=== PATIENT | female | born 1950 | race Caucasian/White ===

== ENCOUNTER → 2018-11-25 23:59 | Outpatient (RCR) | payer MEDICARE, SELFPAY | END | disposition home or self-care (01) | LOC: LAB 15:53 | PROVIDERS: Family Provider Family Medicine; Visit Provider Family Medicine | DX: Z01.89 Encounter for other specified special examinations (principal) ==

== ENCOUNTER 2019-01-31 13:57 | Outpatient (RCR) | payer MEDICARE, SELFPAY | END 2019-03-01 00:01 | LOC: GILAB 13:57 | PROVIDERS: Family Provider Family Medicine; Visit Provider Family Medicine | DX: E87.8 Other disorders of electrolyte and fluid balance, not elsewhere classified (principal); N18.9 Chronic kidney disease, unspecified; R11.2 Nausea with vomiting, unspecified; L98.499 Non-pressure chronic ulcer of skin of other sites with unspecified severity | CPT/HCPCS: 36591 ×2; 80048 ×2; 83735 ×2; 96365 ×2; 96366 ×2; 96367 ×2; 96374; G0463 ×4; J1642; J2001; J2405 ×2; J3475; J3480 ==

== ENCOUNTER 2019-02-14 13:05 | Outpatient (RCR) | payer MEDICARE, SELFPAY | END 2019-03-01 00:01 | LOC: GILAB 13:05 | PROVIDERS: Family Provider Nurse Practitioner Family; Visit Provider Internal Medicine Nephrology | DX: E87.8 Other disorders of electrolyte and fluid balance, not elsewhere classified (principal); N18.9 Chronic kidney disease, unspecified | CPT/HCPCS: 36415; 36591 ×2; 80048 ×2; 83735 ×2; 96360; 96361; 96365 ×2; 96366 ×2; 96367 ×2; 96374 ×2; G0463 ×2; J1642 ×2; J2405; J3475 ×3; J3480 ×3 ==

== ENCOUNTER 2019-02-24 13:57 | Inpatient (IN) | payer MEDICARE, SELFPAY ==
[2019-03-02] MEDS: ondansetron 2 mg/ML SDV 2 mL 4 MG IVP ×2 (01:23→10:08)
[2019-03-02] MEDS: LORazepam 2 mg/mL INJ 1 mL 1 MG IVP ×3 (01:24→20:21)
[2019-03-02 03:16] VITALS: BP 141/53; PULSE 87; RESP 14; O2SAT 93
[2019-03-02 06:41] LABS: Add RBC Morph No
[2019-03-02 06:43] LABS: Basophils % 0.4 %; Eosinophils # 0.3 10^3/uL (0.0-0.8); Eosinophils % 3.6 %; Hematocrit 33.3 % (37.0-47.0); Hemoglobin 10.6 g/dL (11.5-15.3); Lymphocytes # 0.9 10^3/uL (0.8-4.8); Mean Corpuscular HGB Conc 31.8 g/dL (30.0-36.0); Mean Corpuscular Hemoglobin 29.2 pg (28.0-34.0); Mean Corpuscular Volume 91.7 fL (81-99); Mean Platelet Volume 9.5 fL (7.4-10.4); Monocytes # 0.7 10^3/uL (0.2-0.9); Monocytes % 8.4 %; Neutrophils # 5.9 10^3/uL (1.8-7.7); Neutrophils % 75.7 %; Nucleated Red Blood Cells % 0 %; Platelet Count 309 10^3/cmm (130-400); Red Blood Count 3.63 10^6/uL (4.1-5.3); Red Cell Distribution Width 16.4 % (12.1-15.1); White Blood Count 7.7 10^3/uL (4.0-10.0)
[2019-03-02 07:08] LABS: Alanine Aminotransferase 10 U/L (0-33); Albumin Level 3.1 g/dL (3.5-5.2); Alkaline Phosphatase 195 IU/L (35-105); Aspartate Amino Transferase 20 U/L (0-32); Blood Urea Nitrogen 7 mg/dL (8-23); Calcium 9.5 mg/Dl (8.8-10.2); Carbon Dioxide 26 mmol/L (22-29); Chloride 103 mmol/L (98-107); Glomerular Filtration Rate 62.1 mL/min (90-130); Glucose 94 mg/dL (74-106); Phosphorus 2.7 mg/dL (2.5-4.5); Sodium 137 mmol/L (136-145); Total Bilirubin 0.3 mg/dL (0.15-1.2); Total Protein 5.1 g/dL (6.6-8.7)
--- NOTE | 2019-03-02 07:24 | PC.NURSE ---
RN REMOVED CENTRAL LINE FROM EJ. PT DID NOT TOLERATE WELL. DRESSING WAS PLACED OVER SITE. WILL CONTINUE TO MONITOR.
[2019-03-02] MEDS: morphine 4 mg/mL SDV 1 mL 2 MG IVP ×2 (07:41→18:33)
--- NOTE | 2019-03-02 10:48 | PC.NURSE ---
PATIENT IS EXTREMELY UNCOOPERATIVE WITH ALL ASPECTS OF HER CARE. NURSE EDUCATED PATIENT OVER DRESSING CHANGES ORDERED TWICE AND DAY AND THE NEED FOR HYGIENE. PATIENT ALSO INITIALLY REFUSED HER TPN ADMINISTRATION. NURSE EDUCATED THE NEED FOR TPN AND THAT SHE WOULD STILL BE ABLE TO EAT. NURSE AND FINALLY CONVINCED PATIENT TO RECEIVE HER DOSE OF TPN AND LIPIDS AND SHE WAS AGREEABLE TO DRESSING CHANGE. PATIENT, HOWEVER, YELLS AT STAFF DURING HER DRESSING CHANGES AND LINEN CHANGES. SHE SCREAMS NO MATTER HOW STAFF MAY ATTEMPT TO CALM PATIENT. PATIENT HAD RECEIVED PAIN MEDICATION PRIOR TO DRESSING CHANGE PER HER REQUEST. PATIENT BECAME SO RESTLESS IN THE BED DURING THIS CHANGE THAT SHE CAUGHT HER JIMENEZ CATHETER TUBING AROUND HER FOOT AND PULLED HER JIMENEZ OUT. DR. GAYLE NOTIFIED. DR. GAYLE ORDERED NEW JIMENEZ TO BE PLACED. PATIENT STATED THAT SHE NO LONGER WANTED THIS NURSE TO BE IN CHARGE OF HER CARE. DR. GAYLE ALSO NOTIFIED OF THIS AND A NEW NURSE HAS BEEN ASSIGNED TO THE CARE OF THIS PATIENT.
[2019-03-02 11:43] LABS: Magnesium 1.7 mg/dL (1.7-2.3)
[2019-03-02] MEDS: heparin 5,000 unit/mL INJ 1 mL 5000 UNIT SUBCUT (12:30)
--- NOTE | 2019-03-02 12:48 | PC.OT ---
Patient was laying in bed in supine upon therapist's entry. Nursing present, in the process of changing patient's bed linens. Patient yelled, get out when asked by this therapist if she would be willing to participate in OT treatment. However, patient was amenable to having therapist assist in changing her soiled hospital gown, if it could be done quickly . Patient required maximal assistance to don the gown. Patient was obstinate throughout the dressing task, complaining I'm cold and go faster . After donning hospital gown, session ended due to patient's unwillingness to participate. Nursing still present at therapist's exit. Overall, less than 8 minutes of treatment provided, therefore today's services were not billed for.
--- NOTE | 2019-03-02 12:57 | PC.CHAP ---
Pastoral Care Encounter/Spiritual Assessment Type of Contact [x] Declined brine maker visit [] Patient/Family/Request visit [] Outpatient visit [] Follow-up visit [] Physician referral [] Code/Alert [] Routine visit [] Staff referral [] Actively dying [] Patient sleeping [] Family support [] [] Out of room [] Palliative care [] [] Receiving care in room [] Pre-surgical visit [] Trauma [] Long length of stay [] ICU visit [] Other: Relational/Emotional Strength [] Patient feels connected with others/family/visitors/staff [] Distress [] Loneliness/isolation [] Abandonment Spirituality of Patient [] Person of Winter [] Attends Yarsanism of their Winter [] Believes in Prayer [] Reads Bible or Mormonism materials [] There are Spiritual issues to be addressed Deputy Sheriff Generalist Interventions [] Prayer [] Active listening [] Non-anxious presence [] Spiritual/emotional support [] Crisis/trauma care [] Spiritual counseling [] Bereavement support [] Provided bereavement packet [] Provided Bible/devotional materials [] Provided toy/stuffed animal, coloring book to patient or family member [] Completed spiritual assessment [] Provided Communion [] Anointing/[place] [] Salvation [] Other: Impact on Illness or Injury [] Angry [x] Fearful [x] Anxious [] Often cries [] Exhaustion [] Unable to work [] Unable to attend orthodox [] Unable to be satisfied with staff care walk/stand [] Unable to read [] Unable to drive [] Unable to eat/drink [] Unable to sleep [] Unable to be with family [] Other: Summary Pastoral care offered to assist in calming patient, staff didn't feel necessary. Time spent with patient 2 minutes
--- NOTE | 2019-03-02 14:13 | PM.PN ---
Subjective Subjective: Interval history: Janene awakens easily. Reports she has been able to keep some food down today, but it was limited. No other specific complaints today. Medications: Reviewed: Yes Vitals/I&O/Wt Last Vital Signs Pulse 87 03/02/19 03:16 Resp 14 03/02/19 03:16 BP 141/53 03/02/19 03:16 Pulse Ox 93 03/02/19 03:16 03/01/19 03/02/19 03/02/19 22:59 06:59 14:59 Intake Total 100 / 100 Balance 100 / 100 Weight last 48 hrs Weight 40.143 kg Weight 40.143 kg Physical Exam Narrative: EXAM NARRATIVE: General exam no apparent distress Cardiovascular regular rate and rhythm without murmur Lungs clear but diminished breath sounds bilaterally Abdomen demonstrates ostomy, stool noted Extremities no cyanosis clubbing or edema Data Labs: Other Labs: All Labs last 24 hrs except CBC/BMP 03/01/19 03/02/19 03/02/19 06:55 06:30 06:30 RBC 3.63 L MCV 91.7 MCH 29.2 MCHC 31.8 RDW 16.4 H MPV 9.5 Neut % (Auto) 75.7 Lymph % (Auto) 11.0 [place] % (Auto) 8.4 Eos % (Auto) 3.6 Baso % (Auto) 0.4 Neut # (Auto) 5.9 Lymph # (Auto) 0.9 [place] # (Auto) 0.7 Eos # (Auto) 0.3 Baso # (Auto) 0.0 Nucleated RBC % (a uto) 0 Nucleated RBCs # 0.0 GFR Calculation 55.0 L 62.1 L Random Glucose 87 Calcium 9.5 9.5 Phosphorus 2.7 Magnesium 1.0 L 1.7 Total Bilirubin 0.3 AST 20 ALT 10 Alkaline Phosphata se 195 H Total Protein 5.1 L Albumin 3.1 L Globulin 2.0 A&P Assessment and plan (1) Pressure ulcer of sacral region, unspecified stage: Status post debridement. Will need IV antibiotics for minimum of 6 weeks and wound care follow-up Status: Acute Code(s): L89.159 - Pressure ulcer of sacral region, unspecified stage (2) Bacteremia: Currently on vancomycin, Primaxin. Will need minimum of 6 weeks IV antibiotics secondary to bacteremia Status: Acute Code(s): R78.81 - Bacteremia (3) Severe protein-calorie malnutrition: TPN while in hospital. Will not receive TPN on discharge. Status: Acute Code(s): E43 - Unspecified severe protein-calorie malnutrition (4) Septic shock: Resolved Status: Acute Code(s): A41.9 - Sepsis, unspecified organism; R65.21 - Severe sepsis with septic shock (5) Elevated troponin: Type II, no further work-up planned Status: Acute Code(s): R79.89 - Other specified abnormal findings of blood chemistry (6) Crohn's disease: Status: Acute Code(s): K50.90 - Crohn's disease, unspecified, without complications (7) Chronic kidney disease, stage III (moderate): Stable Status: Acute Code(s): N18.3 - Chronic kidney disease, stage 3 (moderate) (8) Chronic anemia: Stable Status: Acute Code(s): D64.9 - Anemia, unspecified Attestations Medical Necessity Statement*: Needs continued hospitalization for IV antibiotics pending placement Coding Level of Care Code Acute Education And Development Manager for [employer] Fwd Diagnoses Pressure ulcer of sacral region, unspecified stage L89.159 Bacteremia R78.81 Severe protein-calorie malnutrition E43 Septic shock A41.9; R65.21 Elevated troponin R79.89 Crohn's disease K50.90 Chronic kidney disease, stage III (moderate) N18.3 Chronic anemia D64.9
[2019-03-02 18:33] VITALS: RESP 14
[2019-03-02 19:00] VITALS: BP 99/52; PULSE 97; RESP 12; TEMP 35.4; O2SAT 95
[2019-03-02] MEDS: vancomycin 500 MG in sodium chloride 0.9% (plus) 100 ML 200 MG IV (20:21)
--- NOTE | 2019-03-02 20:52 | PC.NURSE ---
Patient refuses to let nurses cover wound or assess it. this nurse is going to keep trying to get a look at it and see if i can put dressing on it during the shift. day nurse stated wound was stage 3 or 4 pressure ulcer and its marked originally as stage 2. unable at this time to assess for correct status.
[2019-03-03] VITALS (11 sets, daily range): BP systolic 108–130; BP diastolic 53–65; PULSE 87–109; RESP 16–32; TEMP 36.3–37.3; O2SAT 91–98
[2019-03-03] MEDS: morphine 4 mg/mL SDV 1 mL 2 MG IVP ×4 (02:00→22:00)
[2019-03-03] MEDS: LORazepam 2 mg/mL INJ 1 mL 1 MG IVP ×2 (05:49→16:29)
[2019-03-03 06:21] LABS: Alanine Aminotransferase 7 U/L (0-33); Albumin Level 3.1 g/dL (3.5-5.2); Alkaline Phosphatase 138 IU/L (35-105); Anion Gap 11.3 (5-19); Aspartate Amino Transferase 14 U/L (0-32); Blood Urea Nitrogen 11 mg/dL (8-23); Calcium 9.3 mg/Dl (8.8-10.2); Carbon Dioxide 27 mmol/L (22-29); Chloride 102 mmol/L (98-107); Globulin 1.7 g/dL (1.3-4.6); Glucose 87 mg/dL (74-106); Magnesium 1.4 mg/dL (1.7-2.3); Potassium 4.3 mmol/L (3.5-5.1); Sodium 136 mmol/L (136-145); Total Bilirubin 0.3 mg/dL (0.15-1.2); Total Protein 4.8 g/dL (6.6-8.7)
--- NOTE | 2019-03-03 10:01 | PC.NURSE ---
OT IN WITH PATIENT ; PATIENT REFUSING TO COOPERATE WITH OT UNLESS PAIN MEDICATION WAS GIVEN ; MEDICATION WAS GIVEN THROUGH IV HOWEVER PO MEDICATIONS WERE REFUSED
[2019-03-03] MEDS: heparin 5,000 unit/mL INJ 1 mL 5000 UNIT SUBCUT (11:16)
--- NOTE | 2019-03-03 13:10 | PC.SOCIAL ---
IMM Updated Page 2 of IMM updated and given to patient. Initialed, dated, and timed and placed back in chart.
--- NOTE | 2019-03-03 13:28 | PC.OT ---
LATE ENTRY FOR 03/02/19 FOR THERAPIST AKILA DEL VALLE: PATIENT REFUSED OT TREATMENT ON 03/02/19
--- NOTE | 2019-03-03 14:09 | PM.PN ---
Subjective Subjective: Interval history: Janene reports she is doing a little bit better. We also discussed her sister, who I have cared for in the past. Medications: Reviewed: Yes Vitals/I&O/Wt Last Vital Signs Temp 98.3 F 03/03/19 11:04 Pulse 102 H 03/03/19 13:13 Resp 18 03/03/19 11:04 BP 108/55 03/03/19 11:04 Pulse Ox 91 03/03/19 13:13 03/02/19 03/03/19 03/03/19 22:59 06:59 14:59 Intake Total 100 / 200 580 / 580 Output Total 500 / 500 900 / 900 Balance -400 / -300 -320 / -320 Weight last 48 hrs Weight 37.92 kg Weight 44.724 kg Weight 40.143 kg Weight 40.143 kg Physical Exam Narrative: EXAM NARRATIVE: General exam is no apparent distress, frail-appearing Cardiovascular regular rate and rhythm Lungs clear Abdomen is soft, positive bowel sounds. Ostomy noted Extremities no cyanosis clubbing or edema Urinary Catheter Management^: Lakhani: Cath Placed During This Visit: no A&P Assessment and plan (1) Pressure ulcer of sacral region, unspecified stage: Status post debridement. Will need IV antibiotics for minimum of 6 weeks and wound care follow-up Status: Acute Code(s): L89.159 - Pressure ulcer of sacral region, unspecified stage (2) Bacteremia: Currently on vancomycin, Primaxin. Will need minimum of 6 weeks IV antibiotics secondary to bacteremia Status: Acute Code(s): R78.81 - Bacteremia (3) Severe protein-calorie malnutrition: TPN while in hospital. Will not receive TPN on discharge. Status: Acute Code(s): E43 - Unspecified severe protein-calorie malnutrition (4) Septic shock: Resolved Status: Acute Code(s): A41.9 - Sepsis, unspecified organism; R65.21 - Severe sepsis with septic shock (5) Elevated troponin: Type II, no further work-up planned Status: Acute Code(s): R79.89 - Other specified abnormal findings of blood chemistry (6) Crohn's disease: Status: Acute Code(s): K50.90 - Crohn's disease, unspecified, without complications (7) Chronic kidney disease, stage III (moderate): Stable Status: Acute Code(s): N18.3 - Chronic kidney disease, stage 3 (moderate) (8) Chronic anemia: Stable Status: Acute Code(s): D64.9 - Anemia, unspecified Additional A&P Information Additional A&P Information: Hypomagnesemia, being supplemented Hypokalemia, being supplemented Attestations Medical Necessity Statement*: Needs continued hospital stay for IV antibiotics secondary to unstageable sacral decub, infected, pending placement at skilled care for wound care and IV antibiotics Coding Level of Care Code Acute 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
[2019-03-03] MEDS: magnesium sulfate premix 2 GM/50 ML PIGGYBACK IV (14:51)
[2019-03-03] MEDS: ondansetron 2 mg/ML SDV 2 mL 4 MG IVP (15:59)
--- NOTE | 2019-03-03 17:25 | PC.NURSE ---
PATIENT SACRAL WOUND CLEANED AND DRESSING CHANGED ; PATIENT WOULD ONLY ALLOW SALINE FLUSHES, NON ADHERENT PAD AND COVADERM TO BE APPLIED ; PATIENT WAS COOPERATIVE WITH NURSING STAFF
[2019-03-03 20:06] LABS: Vancomycin Trough 9.9 ug/mL (10-15)
--- NOTE | 2019-03-03 20:06 | PC.PT ---
patient refusing cpap at this time.
[2019-03-03] MEDS: vancomycin 500 MG in sodium chloride 0.9% (plus) 100 ML 200 MG IV (20:28)
[2019-03-04] VITALS (9 sets, daily range): BP systolic 107–130; BP diastolic 61–75; PULSE 81–89; RESP 10–24; TEMP 36.1–36.7; O2SAT 92–98
[2019-03-04] MEDS: LORazepam 2 mg/mL INJ 1 mL 1 MG IVP ×2 (00:34→17:54)
[2019-03-04] MEDS: morphine 4 mg/mL SDV 1 mL 2 MG IVP ×4 (06:43→20:26)
[2019-03-04] MEDS: heparin 5,000 unit/mL INJ 1 mL 5000 UNIT SUBCUT (13:54)
[2019-03-04] MEDS: ondansetron 2 mg/ML SDV 2 mL 4 MG IVP ×2 (13:54→20:55)
[2019-03-04 14:32] LABS: Anion Gap 12.1 (5-19); Blood Urea Nitrogen 12 mg/dL (8-23); Calcium 9.3 mg/Dl (8.8-10.2); Carbon Dioxide 24 mmol/L (22-29); Chloride 103 mmol/L (98-107); Glomerular Filtration Rate 71.1 mL/min (90-130); Glucose 120 mg/dL (74-106); Potassium 4.1 mmol/L (3.5-5.1); Sodium 135 mmol/L (136-145)
[2019-03-04 14:33] LABS: Magnesium 1.4 mg/dL (1.7-2.3)
--- NOTE | 2019-03-04 15:02 | PM.PN ---
Subjective Subjective: Interval history: Janene reports she is doing okay today but having some pain. The nurse is going to bring her some pain medicine. Medications: Reviewed: Yes Vitals/I&O/Wt Last Vital Signs Temp 97.6 F 03/04/19 12:36 Pulse 89 03/04/19 12:36 Resp 12 03/04/19 12:36 BP 124/61 03/04/19 12:36 Pulse Ox 96 03/04/19 12:36 03/04/19 03/04/19 03/04/19 06:59 14:59 22:59 Intake Total 105 / 885 340 / 340 Output Total 250 / 250 Balance 105 / -265 90 / 90 Weight last 48 hrs Weight 40.778 kg Weight 40.37 kg Weight 37.92 kg Weight 44.724 kg Physical Exam Narrative: EXAM NARRATIVE: General exam is no apparent distress Cardiovascular regular in rhythm without murmur Lungs clear no wheezing or crackles Abdomen is soft with positive bowel sounds, ostomy noted Extremities no cyanosis clubbing or edema Urinary Catheter Management^: Lakhani: Cath Placed During This Visit: no A&P Assessment and plan (1) Pressure ulcer of sacral region, unspecified stage: Status post debridement. Will need IV antibiotics for minimum of 6 weeks and wound care follow-up. Continuing wound care here. Awaiting for skilled placement. Status: Acute Code(s): L89.159 - Pressure ulcer of sacral region, unspecified stage (2) Bacteremia: Currently on vancomycin, Primaxin. Will need minimum of 6 weeks IV antibiotics secondary to bacteremia. Status: Acute Code(s): R78.81 - Bacteremia (3) Severe protein-calorie malnutrition: TPN while in hospital. Will not receive TPN on discharge. Status: Acute Code(s): E43 - Unspecified severe protein-calorie malnutrition (4) Septic shock: Resolved Status: Acute Code(s): A41.9 - Sepsis, unspecified organism; R65.21 - Severe sepsis with septic shock (5) Elevated troponin: Type II, no further work-up planned Status: Acute Code(s): R79.89 - Other specified abnormal findings of blood chemistry (6) Crohn's disease: Status: Acute Code(s): K50.90 - Crohn's disease, unspecified, without complications (7) Chronic kidney disease, stage III (moderate): Stable Status: Acute Code(s): N18.3 - Chronic kidney disease, stage 3 (moderate) (8) Chronic anemia: Stable Status: Acute Code(s): D64.9 - Anemia, unspecified Additional A&P Information Additional A&P Information: Hypomagnesemia, being supplemented Hypokalemia, being supplemented Attestations Medical Necessity Statement*: Needs continued hospitalization pending placement for wound care and IV antibiotics. Coding Level of Care Code Acute Therapist'S Assistant for [facility] Fwd Diagnoses Pressure ulcer of sacral region, unspecified stage L89.159 Bacteremia R78.81 Severe protein-calorie malnutrition E43 Septic shock A41.9; R65.21 Elevated troponin R79.89 Crohn's disease K50.90 Chronic kidney disease, stage III (moderate) N18.3 Chronic anemia D64.9
[2019-03-04] MEDS: magnesium sulfate premix 2 GM/50 ML PIGGYBACK IV (16:19)
[2019-03-04] MEDS: vancomycin 500 MG in sodium chloride 0.9% (plus) 100 ML 200 MG IV (20:32)
[2019-03-05] VITALS (12 sets, daily range): BP systolic 80–114; BP diastolic 49–66; PULSE 81–94; RESP 10–22; TEMP 35.5–37.2; O2SAT 92–96
[2019-03-05] MEDS: morphine 4 mg/mL SDV 1 mL 2 MG IVP ×5 (00:56→21:12)
[2019-03-05] MEDS: LORazepam 2 mg/mL INJ 1 mL 1 MG IVP (01:37)
[2019-03-05 07:12] LABS: Anion Gap 12.1 (5-19); Blood Urea Nitrogen 12 mg/dL (8-23); Calcium 9.2 mg/Dl (8.8-10.2); Carbon Dioxide 24 mmol/L (22-29); Chloride 101 mmol/L (98-107); Glomerular Filtration Rate 71.1 mL/min (90-130); Glucose 94 mg/dL (74-106); Magnesium 1.7 mg/dL (1.7-2.3); Potassium 4.1 mmol/L (3.5-5.1); Sodium 133 mmol/L (136-145)
[2019-03-05] MEDS: ondansetron 2 mg/ML SDV 2 mL 4 MG IVP ×3 (08:26→19:25)
--- NOTE | 2019-03-05 10:32 | PC.SOCIAL ---
IMM Update Pg 2 of IMM Given and explained to patient who voiced understanding. Copy provided and chart updated.
--- NOTE | 2019-03-05 12:31 | PM.PN ---
Subjective Subjective: Interval history: Janene reports she is doing okay. She is still having occasional vomiting and nausea. I discussed with her changing her pain medicine but she does not want to do this. She denies any abdominal discomfort. She is curious when and if she will need got to go to [facility]. Medications: Reviewed: Yes Vitals/I&O/Wt Last Vital Signs Temp 99.0 F 03/05/19 10:54 Pulse 88 03/05/19 10:54 Resp 18 03/05/19 10:54 BP 96/51 03/05/19 10:54 Pulse Ox 93 03/05/19 10:54 03/04/19 03/05/19 03/05/19 22:59 06:59 14:59 Intake Total 240 / 580 970 / 1550 100 / 100 Output Total 1900 / 2150 300 / 300 Balance 240 / 330 -930 / -600 -200 / -200 Weight last 48 hrs Weight 38.102 kg Weight 40.778 kg Weight 40.37 kg Physical Exam Narrative: EXAM NARRATIVE: General exam is no apparent distress Cardiovascular regular rate and rhythm without murmur Lungs clear Abdomen is soft, positive bowel sounds, ostomy with stool Extremities no cyanosis clubbing or edema Urinary Catheter Management^: Lakhani: Cath Placed During This Visit: no A&P Assessment and plan (1) Pressure ulcer of sacral region, unspecified stage: Status post debridement. Will need IV antibiotics for minimum of 6 weeks and wound care follow-up. Continuing wound care here. Awaiting for skilled placement. On vancomycin and Primaxin. Status: Acute Code(s): L89.159 - Pressure ulcer of sacral region, unspecified stage (2) Bacteremia: Currently on vancomycin, Primaxin. Will need minimum of 6 weeks IV antibiotics secondary to bacteremia. Status: Acute Code(s): R78.81 - Bacteremia (3) Severe protein-calorie malnutrition: Continuing TPN at this time Status: Acute Code(s): E43 - Unspecified severe protein-calorie malnutrition (4) Septic shock: Resolved Status: Acute Code(s): A41.9 - Sepsis, unspecified organism; R65.21 - Severe sepsis with septic shock (5) Elevated troponin: Type II, no further work-up planned Status: Acute Code(s): R79.89 - Other specified abnormal findings of blood chemistry (6) Crohn's disease: Status: Acute Code(s): K50.90 - Crohn's disease, unspecified, without complications (7) Chronic kidney disease, stage III (moderate): Stable Status: Acute Code(s): N18.3 - Chronic kidney disease, stage 3 (moderate) (8) Chronic anemia: Stable Status: Acute Code(s): D64.9 - Anemia, unspecified Additional A&P Information Additional A&P Information: Hypomagnesemia, normal currently but requiring intermittent supplementation Hypokalemia, normal currently Attestations Medical Necessity Statement*: Needs continued hospitalization for IV antibiotics related to bacteremia Coding Level of Care Code Acute Procurement Consultant for [employer] Fwd Diagnoses Pressure ulcer of sacral region, unspecified stage L89.159 Bacteremia R78.81 Severe protein-calorie malnutrition E43 Septic shock A41.9; R65.21 Elevated troponin R79.89 Crohn's disease K50.90 Chronic kidney disease, stage III (moderate) N18.3 Chronic anemia D64.9
[2019-03-05] MEDS: heparin 5,000 unit/mL INJ 1 mL 5000 UNIT SUBCUT (13:14)
--- NOTE | 2019-03-05 17:55 | PC.OT ---
OT tx attempted at 1330 and 1620 with pt refusing both times to participate. Tx to be attempted again tomorrow.
--- NOTE | 2019-03-05 19:45 | PC.NURSE ---
1700- Wound dressing change Pt stated she wants telfa non-dadhesive dressing on and okay with abdominal pads to cover on her sacral ulcer. With a paper tape to keep dressings intact. Old covaderm dressing that was made it hard to remove during dressing change even with saline flush. It cause more pain and redness to pt's surrounding skin areas.
[2019-03-05] MEDS: vancomycin 500 MG in sodium chloride 0.9% (plus) 100 ML 200 MG IV (20:31)
--- NOTE | 2019-03-05 22:49 | PC.NURSE ---
Chunks of blue/white emeis noted about 25 mls. Emesis showed to Dr Parada. Patient stated she did have sliced turkey for dinner. No orders recieved.
[2019-03-06] VITALS (9 sets, daily range): BP systolic 98–124; BP diastolic 46–63; PULSE 80–97; RESP 12–19; TEMP 36.1–36.9; O2SAT 95–97
--- NOTE | 2019-03-06 00:22 | PC.NURSE ---
Dressing on patients R upper arm is dated 03/01/19. This nurse offered to change it and patient stated not right now. Will continue to monitor.
[2019-03-06] MEDS: LORazepam 2 mg/mL INJ 1 mL 1 MG IVP ×2 (00:41→15:32)
[2019-03-06] MEDS: ondansetron 2 mg/ML SDV 2 mL 4 MG IVP ×4 (02:58→21:26)
[2019-03-06] MEDS: morphine 4 mg/mL SDV 1 mL 2 MG IVP ×4 (02:59→19:34)
[2019-03-06] MEDS: heparin 5,000 unit/mL INJ 1 mL 5000 UNIT SUBCUT (12:17)
--- NOTE | 2019-03-06 13:29 | PM.PN ---
Subjective Subjective: Interval history: Janene reports she is doing okay. She ate a little bit today. She is resistant to working with occupational therapy but after I visited with her she agreed to do so. Medications: Reviewed: Yes Vitals/I&O/Wt Last Vital Signs Temp 98.5 F 03/06/19 11:00 Pulse 85 03/06/19 11:00 Resp 12 03/06/19 12:17 BP 98/53 03/06/19 11:00 Pulse Ox 95 03/06/19 11:00 03/05/19 03/06/19 03/06/19 22:59 06:59 14:59 Intake Total 200 / 540 989.1 / 1529.1 570 / 570 Output Total 251 / 551 400 / 951 Balance -51 / -11 589.1 / 578.1 570 / 570 Weight last 48 hrs Weight 38.555 kg Weight 38.102 kg Physical Exam Narrative: EXAM NARRATIVE: General exam no apparent distress Cardiovascular regular rate and rhythm without murmur Lungs clear Abdomen is soft, positive bowel sounds. Ostomy noted with stool Extremities no cyanosis clubbing or edema Back with dressing Urinary Catheter Management^: Lakhani: Cath Placed During This Visit: no A&P Assessment and plan (1) Pressure ulcer of sacral region, unspecified stage: Status post debridement. Will need IV antibiotics for minimum of 6 weeks and wound care follow-up. Continuing wound care here. Awaiting for skilled placement. On vancomycin and Primaxin. Currently we are trying to place at [facility]. Isolated E. coli, staph aureus, enterococcus from wound Status: Acute Code(s): L89.159 - Pressure ulcer of sacral region, unspecified stage (2) Bacteremia: Currently on vancomycin, Primaxin. Will need minimum of 6 weeks IV antibiotics secondary to bacteremia. Staph epidermidis localized from blood. Other organisms from wound. Status: Acute Code(s): R78.81 - Bacteremia (3) Severe protein-calorie malnutrition: Continuing TPN at this time Status: Acute Code(s): E43 - Unspecified severe protein-calorie malnutrition (4) Septic shock: Resolved. See notation under bacteremia and sacral decubitus Status: Acute Code(s): A41.9 - Sepsis, unspecified organism; R65.21 - Severe sepsis with septic shock (5) Elevated troponin: Type II, no further work-up planned Status: Acute Code(s): R79.89 - Other specified abnormal findings of blood chemistry (6) Crohn's disease: Status: Acute Code(s): K50.90 - Crohn's disease, unspecified, without complications (7) Chronic kidney disease, stage III (moderate): Stable Status: Acute Code(s): N18.3 - Chronic kidney disease, stage 3 (moderate) (8) Chronic anemia: Stable Status: Acute Code(s): D64.9 - Anemia, unspecified Additional A&P Information Additional A&P Information: Hypomagnesemia, normal currently but requiring intermittent supplementation. Plan to recheck laboratory tomorrow Hypokalemia, normal currently. Plan to recheck laboratory tomorrow Attestations Medical Necessity Statement*: Needs continued hospital stay for IV antibiotics secondary to bacteremia. 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
--- NOTE | 2019-03-06 18:20 | PC.NURSE ---
Patient assisted with changing her leaking colostomy bag; patient very particular with how the colostomy bag is to be emptied as well has hygiene practices. Patient refuses to allow this nurse to use personal hygiene wipes any where on her body. Patient stated only use dry paper towels ; I asked her how she gets the bowel off her skin, she stated It will just wear off gown changed as well as linen under patient. Patient refusing any other personal care from nurse.
[2019-03-06] MEDS: vancomycin 500 MG in sodium chloride 0.9% (plus) 100 ML 200 MG IV (20:28)
[2019-03-07] VITALS (9 sets, daily range): BP systolic 89–129; BP diastolic 51–62; PULSE 81–97; RESP 12–18; TEMP 36.7–37.1; O2SAT 95–100
[2019-03-07] MEDS: LORazepam 2 mg/mL INJ 1 mL 1 MG IVP ×4 (00:29→16:39)
[2019-03-07] MEDS: heparin 5,000 unit/mL INJ 1 mL 5000 UNIT SUBCUT (04:20)
[2019-03-07] MEDS: morphine 4 mg/mL SDV 1 mL 2 MG IVP ×4 (04:21→16:39)
[2019-03-07] MEDS: ondansetron 2 mg/ML SDV 2 mL 4 MG IVP (04:21)
[2019-03-07 05:07] LABS: Basophils % 0.2 %; Eosinophils # 0.4 10^3/uL (0.0-0.8); Hematocrit 31.8 % (37.0-47.0); Hemoglobin 9.8 g/dL (11.5-15.3); Lymphocytes # 1.2 10^3/uL (0.8-4.8); Lymphocytes % 12.7 %; Mean Corpuscular HGB Conc 30.8 g/dL (30.0-36.0); Mean Corpuscular Hemoglobin 29.8 pg (28.0-34.0); Mean Corpuscular Volume 96.7 fL (81-99); Mean Platelet Volume 10.2 fL (7.4-10.4); Monocytes # 0.7 10^3/uL (0.2-0.9); Monocytes % 7.8 %; Neutrophils # 6.9 10^3/uL (1.8-7.7); Neutrophils % 74.4 %; Nucleated Red Blood Cells % 0 %; Platelet Count 226 10^3/cmm (130-400); Red Blood Count 3.29 10^6/uL (4.1-5.3); Red Cell Distribution Width 17.2 % (12.1-15.1); White Blood Count 9.3 10^3/uL (4.0-10.0)
[2019-03-07 05:27] LABS: Alanine Aminotransferase 12 U/L (0-33); Albumin Level 2.8 g/dL (3.5-5.2); Alkaline Phosphatase 108 IU/L (35-105); Anion Gap 11.1 (5-19); Aspartate Amino Transferase 24 U/L (0-32); Blood Urea Nitrogen 17 mg/dL (8-23); Calcium 9.2 mg/Dl (8.8-10.2); Carbon Dioxide 26 mmol/L (22-29); Chloride 103 mmol/L (98-107); Globulin 2.5 g/dL (1.3-4.6); Glomerular Filtration Rate 71.1 mL/min (90-130); Glucose 81 mg/dL (74-106); Potassium 4.1 mmol/L (3.5-5.1); Sodium 136 mmol/L (136-145); Total Bilirubin 0.2 mg/dL (0.15-1.2); Total Protein 5.3 g/dL (6.6-8.7)
--- NOTE | 2019-03-07 09:55 | PC.SOCIAL ---
IMM Updated Page 2 of IMM updated and given to patient. Initialed, dated, and timed a placed back in chart.
--- NOTE | 2019-03-07 17:09 | P.PN_ITS ---
Subjective Subjective: Interval history: This morning, patient is lying in bed, wondering when she will go to the long-term care facility, her appetite is still poor, on TPN, has a bag of lifesaver jelly candies at bedside, has been snacking on them, Vitals/I&O/Wt Last Vital Signs Temp 98.1 F 03/07/19 16:22 Pulse 97 03/07/19 16:22 Resp 16 03/07/19 16:22 BP 94/51 03/07/19 16:22 Pulse Ox 100 03/07/19 16:22 03/07/19 03/07/19 03/07/19 06:59 14:59 22:59 Intake Total 1011.5 / 2128.5 345 / 345 Output Total 1225 / 1575 Balance -213.5 / 553.5 345 / 345 Weight last 48 hrs Weight 38.147 kg Weight 38.555 kg Physical Exam HENMT: COMMON NORMALS: normocephalic HEAD & SCALP: normocephalic Eye: COMMON NORMALS: PERRL and EOMs intact bilaterally PUPIL: Yes PERRL Neck/C-Spine: COMMON NORMALS: no JVD Lymph: LYMPHATIC: no lymphadenopathy noted Chest: COMMONS NORMALS: inspection of chest normal Resp: COMMON NORMALS: normal respiratory effort, no retractions, no use of accessory muscles and clear to auscultation bilaterally AUSCULTATION: clear to auscultation bilaterally Cardio: COMMON NORMALS: no JVD, regular rate, regular rhythm, S1 normal heart sound and S2 normal heart sound RATE: regular rate RHYTHM: regular rhythm HEART SOUNDS: S1 normal and S2 normal GI: COMMON NORMALS: normal to inspection, nondistended, normoactive bowel sounds Urinary Catheter Management^: Lakhani: Cath Placed During This Visit: no A&P Assessment and plan (1) Pressure ulcer of sacral region, unspecified stage: -Status post debridement. -Will need IV antibiotics for minimum of 6 weeks and wound care follow-up - Awaiting for skilled placement. On vancomycin and Primaxin. -Currently we are trying to place at [facility] Status: Acute Code(s): L89.159 - Pressure ulcer of sacral region, unspecified stage (2) Bacteremia: Currently on vancomycin, Primaxin. Will need minimum of 6 weeks IV antibiotics secondary to bacteremia. Staph epidermidis localized from blood. Other organisms from wound. Status: Acute Code(s): R78.81 - Bacteremia (3) Severe protein-calorie malnutrition: Continuing TPN at this time Status: Acute Code(s): E43 - Unspecified severe protein-calorie malnutrition (4) Septic shock: Resolved Status: Acute Code(s): A41.9 - Sepsis, unspecified organism; R65.21 - Severe sepsis with septic shock (5) Elevated troponin: Type II, monitored for chest pain Status: Acute Code(s): R79.89 - Other specified abnormal findings of blood chemistry (6) Crohn's disease: Status: Acute Code(s): K50.90 - Crohn's disease, unspecified, without complications (7) Chronic kidney disease, stage III (moderate): Stable Status: Acute Code(s): N18.3 - Chronic kidney disease, stage 3 (moderate) (8) Chronic anemia: Stable Status: Acute Code(s): D64.9 - Anemia, unspecified Attestations Medical Necessity Statement*: Patient requires hospital, for sacral decubitus ulcer infection, awaiting placement Coding Level of Care Code Acute Photogrammetric Engineer for [facility] Fwd Diagnoses Pressure ulcer of sacral region, unspecified stage L89.159 Bacteremia R78.81 Severe protein-calorie malnutrition E43 Septic shock A41.9; R65.21 Elevated troponin R79.89 Crohn's disease K50.90 Chronic kidney disease, stage III (moderate) N18.3 Chronic anemia D64.9
--- NOTE | 2019-03-07 17:21 | PC.NURSE ---
PATIENT STATES THAT SHE WILL NOT TAKE ANY MEDICATIONS BY MOUTH, ONLY THROUGH HER PICC LINE.
[2019-03-07] MEDS: vancomycin 500 MG in sodium chloride 0.9% (plus) 100 ML 200 MG IV (21:02)
[2019-03-07 22:43] LABS: Vancomycin Trough 8.3 ug/mL (10-15)
--- NOTE | 2019-03-07 23:27 | PC.RESP ---
pt is on room air with a spo2 of 97%/pt refused to bipap
[2019-03-08] VITALS (11 sets, daily range): BP systolic 101–127; BP diastolic 53–80; PULSE 84–111; RESP 13–18; TEMP 36.6–37.3; O2SAT 96–99
--- NOTE | 2019-03-08 01:42 | PC.PHAR ---
Vancomycin trough level before third dose of 500mg IVPB every 24 hours if 8.3. Dosage is adjusted to Vancomycin 750mg IVPB every 24 hours with another trough level to be obtained before the third dose at this rate.
[2019-03-08] MEDS: morphine 4 mg/mL SDV 1 mL 2 MG IVP ×4 (02:57→20:15)
[2019-03-08] MEDS: LORazepam 2 mg/mL INJ 1 mL 1 MG IVP ×3 (02:58→14:21)
[2019-03-08 09:35] LABS: Basophils % 0.2 %; Eosinophils # 0.3 10^3/uL (0.0-0.8); Eosinophils % 2.9 %; Hematocrit 32.9 % (37.0-47.0); Hemoglobin 10.3 g/dL (11.5-15.3); Lymphocytes # 0.8 10^3/uL (0.8-4.8); Lymphocytes % 8.3 %; Mean Corpuscular HGB Conc 31.3 g/dL (30.0-36.0); Mean Corpuscular Volume 95.9 fL (81-99); Mean Platelet Volume 9.9 fL (7.4-10.4); Monocytes # 0.6 10^3/uL (0.2-0.9); Monocytes % 6.6 %; Neutrophils # 7.5 10^3/uL (1.8-7.7); Nucleated Red Blood Cells % 0 %; Platelet Count 247 10^3/cmm (130-400); Red Blood Count 3.43 10^6/uL (4.1-5.3); Red Cell Distribution Width 17.2 % (12.1-15.1); White Blood Count 9.3 10^3/uL (4.0-10.0)
[2019-03-08 09:49] LABS: Alanine Aminotransferase 12 U/L (0-33); Albumin Level 2.8 g/dL (3.5-5.2); Alkaline Phosphatase 92 IU/L (35-105); Anion Gap 11.3 (5-19); Aspartate Amino Transferase 21 U/L (0-32); Blood Urea Nitrogen 14 mg/dL (8-23); Calcium 9.5 mg/Dl (8.8-10.2); Carbon Dioxide 24 mmol/L (22-29); Chloride 100 mmol/L (98-107); Globulin 2.3 g/dL (1.3-4.6); Glomerular Filtration Rate 99.1 mL/min (90-130); Glucose 108 mg/dL (74-106); Potassium 4.3 mmol/L (3.5-5.1); Sodium 131 mmol/L (136-145); Total Bilirubin 0.2 mg/dL (0.15-1.2); Total Protein 5.1 g/dL (6.6-8.7)
--- NOTE | 2019-03-08 14:29 | P.PN_ITS ---
Subjective Subjective: Interval history: This morning, patient is lying in bed, has no complaints, as she states get me out of here, still waiting on group home placement Vitals/I&O/Wt Last Vital Signs Temp 97.8 F 03/08/19 11:41 Pulse 111 H 03/08/19 11:41 Resp 16 03/08/19 14:20 BP 111/65 03/08/19 11:41 Pulse Ox 98 03/08/19 11:41 03/07/19 03/08/19 03/08/19 22:59 06:59 14:59 Intake Total 580 / 925 1008 / 1933 220 / 220 Output Total 700 / 700 875 / 875 Balance -120 / 225 1008 / 1233 -655 / -655 Weight last 48 hrs Weight 36.061 kg Weight 38.147 kg Physical Exam HENMT: COMMON NORMALS: normocephalic HEAD & SCALP: normocephalic Neck/C-Spine: COMMON NORMALS: no JVD Lymph: LYMPHATIC: no lymphadenopathy noted Chest: COMMONS NORMALS: inspection of chest normal Resp: COMMON NORMALS: normal respiratory effort, no retractions, no use of accessory muscles and clear to auscultation bilaterally AUSCULTATION: clear to auscultation bilaterally Cardio: COMMON NORMALS: no JVD, regular rate, regular rhythm, S1 normal heart sound and S2 normal heart sound RATE: regular rate RHYTHM: regular rhythm HEART SOUNDS: S1 normal and S2 normal Urinary Catheter Management^: Lakhani: Cath Placed During This Visit: no A&P Assessment and plan (1) Pressure ulcer of sacral region, unspecified stage: -Status post debridement. -Will need IV antibiotics for minimum of 6 weeks and wound care follow-up - Awaiting for skilled placement. On vancomycin and Primaxin. -Currently we are trying to place at [facility] Status: Acute Code(s): L89.159 - Pressure ulcer of sacral region, unspecified stage (2) Bacteremia: Currently on vancomycin, Primaxin. Will need minimum of 6 weeks IV antibiotics secondary to bacteremia. Staph epidermidis localized from blood. Other organisms from wound. Status: Acute Code(s): R78.81 - Bacteremia (3) Severe protein-calorie malnutrition: Continuing TPN at this time Status: Acute Code(s): E43 - Unspecified severe protein-calorie malnutrition (4) Septic shock: Resolved Status: Acute Code(s): A41.9 - Sepsis, unspecified organism; R65.21 - Severe sepsis with septic shock (5) Elevated troponin: Type II, monitored for chest pain Status: Acute Code(s): R79.89 - Other specified abnormal findings of blood chemistry (6) Crohn's disease: Status: Acute Code(s): K50.90 - Crohn's disease, unspecified, without complications (7) Chronic kidney disease, stage III (moderate): Stable Status: Acute Code(s): N18.3 - Chronic kidney disease, stage 3 (moderate) (8) Chronic anemia: Stable Status: Acute Code(s): D64.9 - Anemia, unspecified Additional A&P Information Additional A&P Information: Hypomagnesemia, normal currently but requiring intermittent supplementation. Plan to recheck laboratory tomorrow Hypokalemia, normal currently. Plan to recheck laboratory tomorrow Attestations Medical Necessity Statement*: Patient requires hospitalization, for sacral ulcers requiring IV antibiotic therapy Coding Level of Care Code Acute Digital Pre Press Operator for [facility] Fwd Diagnoses Pressure ulcer of sacral region, unspecified stage L89.159 Bacteremia R78.81 Severe protein-calorie malnutrition E43 Septic shock A41.9; R65.21 Elevated troponin R79.89 Crohn's disease K50.90 Chronic kidney disease, stage III (moderate) N18.3 Chronic anemia D64.9
[2019-03-08] MEDS: ondansetron 2 mg/ML SDV 2 mL 4 MG IVP ×2 (16:12→22:18)
[2019-03-08] MEDS: vancomycin 500 MG in sodium chloride 0.9% (plus) 100 ML 200 MG IV (20:16)
--- NOTE | 2019-03-08 21:11 | PC.RESP ---
pt is on room air with a spo2 of 96%/pt refused
[2019-03-09] VITALS (9 sets, daily range): BP systolic 88–117; BP diastolic 44–60; PULSE 78–102; RESP 12–20; TEMP 36.4–37.4; O2SAT 93–100
[2019-03-09] MEDS: LORazepam 2 mg/mL INJ 1 mL 1 MG IVP ×2 (00:48→20:12)
[2019-03-09 05:18] LABS: Basophils % 0.3 %; Eosinophils # 0.3 10^3/uL (0.0-0.8); Eosinophils % 2.5 %; Hematocrit 30.3 % (37.0-47.0); Hemoglobin 9.6 g/dL (11.5-15.3); Mean Corpuscular HGB Conc 31.7 g/dL (30.0-36.0); Mean Corpuscular Hemoglobin 31.6 pg (28.0-34.0); Mean Corpuscular Volume 99.7 fL (81-99); Mean Platelet Volume 10.7 fL (7.4-10.4); Monocytes # 0.7 10^3/uL (0.2-0.9); Monocytes % 7.4 %; Neutrophils # 7.9 10^3/uL (1.8-7.7); Nucleated Red Blood Cells % 0 %; Platelet Count 247 10^3/cmm (130-400); Red Blood Count 3.04 10^6/uL (4.1-5.3); Red Cell Distribution Width 17.5 % (12.1-15.1)
[2019-03-09 05:37] LABS: Albumin Level 2.3 g/dL (3.5-5.2); Alkaline Phosphatase 98 IU/L (35-105); Anion Gap 14.9 (5-19); Blood Urea Nitrogen 16 mg/dL (8-23); Calcium 9.2 mg/Dl (8.8-10.2); Carbon Dioxide 24 mmol/L (22-29); Chloride 94 mmol/L (98-107); Globulin 2.9 g/dL (1.3-4.6); Glomerular Filtration Rate 71.1 mL/min (90-130); Magnesium 1.8 mg/dL (1.7-2.3); Potassium 5.9 mmol/L (3.5-5.1); Sodium 127 mmol/L (136-145); Total Bilirubin 0.2 mg/dL (0.15-1.2); Total Protein 5.2 g/dL (6.6-8.7)
[2019-03-09 05:53] LABS: Alanine Aminotransferase < 5 U/L (0-33); Aspartate Amino Transferase 5 U/L (0-32)
[2019-03-09 05:56] LABS: Glucose 930 mg/dL (74-106)
[2019-03-09 06:03] LABS: Glucose Point of Care 110 mg/dL (70-110)
[2019-03-09] MEDS: morphine 4 mg/mL SDV 1 mL 2 MG IVP ×5 (06:21→21:57)
[2019-03-09 07:34] LABS: Alanine Aminotransferase 11 U/L (0-33); Albumin Level 2.7 g/dL (3.5-5.2); Alkaline Phosphatase 99 IU/L (35-105); Anion Gap 12.2 (5-19); Aspartate Amino Transferase 22 U/L (0-32); Blood Urea Nitrogen 16 mg/dL (8-23); Calcium 9.2 mg/Dl (8.8-10.2); Carbon Dioxide 25 mmol/L (22-29); Chloride 102 mmol/L (98-107); Globulin 2.4 g/dL (1.3-4.6); Glomerular Filtration Rate 71.1 mL/min (90-130); Glucose 90 mg/dL (74-106); Magnesium 1.3 mg/dL (1.7-2.3); Phosphorus 3.4 mg/dL (2.5-4.5); Potassium 4.2 mmol/L (3.5-5.1); Sodium 135 mmol/L (136-145); Total Bilirubin 0.2 mg/dL (0.15-1.2); Total Protein 5.1 g/dL (6.6-8.7)
[2019-03-09 07:40] LABS: Basophils % 0.3 %; Eosinophils # 0.3 10^3/uL (0.0-0.8); Hematocrit 29.6 % (37.0-47.0); Hemoglobin 9.3 g/dL (11.5-15.3); Lymphocytes # 0.9 10^3/uL (0.8-4.8); Lymphocytes % 9.3 %; Mean Corpuscular HGB Conc 31.4 g/dL (30.0-36.0); Mean Corpuscular Hemoglobin 29.5 pg (28.0-34.0); Mean Platelet Volume 10.7 fL (7.4-10.4); Monocytes # 0.7 10^3/uL (0.2-0.9); Monocytes % 6.9 %; Nucleated Red Blood Cells % 0 %; Platelet Count 239 10^3/cmm (130-400); Red Blood Count 3.15 10^6/uL (4.1-5.3); Red Cell Distribution Width 17.2 % (12.1-15.1)
--- NOTE | 2019-03-09 09:33 | PC.SOCIAL ---
IMM Updated Page 2 of IMM updated and given to patient. Initialed, dated, and timed and placed in chart.
[2019-03-09] MEDS: magnesium sulfate premix 2 GM/50 ML PIGGYBACK IV (09:46)
[2019-03-09] MEDS: ondansetron 2 mg/ML SDV 2 mL 4 MG IVP ×2 (10:17→18:26)
--- NOTE | 2019-03-09 11:54 | PC.CHAP ---
Pastoral Care Encounter/Spiritual Assessment Type of Contact [] Declined walking dragline operator visit [] Patient/Family/Request visit [] Outpatient visit [] Follow-up visit [] Physician referral [] Code/Alert [x] Routine visit [] Staff referral [] Actively dying [] Patient sleeping [] Family support [] [] Out of room [] Palliative care [] [] Receiving care in room [] Pre-surgical visit [] Trauma [] Long length of stay [] ICU visit [] Other: Relational/Emotional Strength [] Patient feels connected with others/family/visitors/staff [] Distress [] Loneliness/isolation [] Abandonment Spirituality of Patient [] Person of Winter [] Attends Evangelical of their Winter [] Believes in Prayer [] Reads Bible or Nondenominational materials [] There are Spiritual issues to be addressed Optometric Technician Interventions [x] Prayer [x] Active listening [x] Non-anxious presence [x] Spiritual/emotional support [] Crisis/trauma care [] Spiritual counseling [] Bereavement support [] Provided bereavement packet [] Provided Bible/devotional materials [] Provided toy/stuffed animal, coloring book to patient or family member [x] Completed spiritual assessment [] Provided Communion [] Anointing/[place] [] Salvation [] Other: Impact on Illness or Injury [] Angry [] Fearful [] Anxious [] Often cries [] Exhaustion [] Unable to work [] Unable to attend yazdanism [] Unable to walk/stand [] Unable to read [] Unable to drive [] Unable to eat/drink [] Unable to sleep [] Unable to be with family [] Other: lives in assisted living... Summary 79 yrs looking forward to another year Time spent with patient 40 minutes
--- NOTE | 2019-03-09 13:12 | P.PN_ITS ---
Subjective Subjective: Interval history: This morning patient's wants to know what the process is in terms of getting her to a snf, wondering why it is taking this long, her appetite has not been improving, patient's is at bedside, is wondering if he is taking this long According to 1 of the nurses Yue, patient voiced to her that she wanted to take all her pills at once from home, concern for suicidal ideation I spoke to patient about this, she states that it was a misunderstanding, she wants to make sure that she has all her medications, so that if she has to go to her daughter's house, she will have her medications. Denies thoughts of hurting herself, denies thoughts of hurting others, denies feeling down depressed or sad. Vitals/I&O/Wt Last Vital Signs Temp 97.6 F 03/09/19 12:00 Pulse 85 03/09/19 12:00 Resp 18 03/09/19 12:00 BP 106/60 03/09/19 12:00 Pulse Ox 99 03/09/19 12:00 03/08/19 03/09/19 03/09/19 22:59 06:59 14:59 Intake Total 320 / 665 1235 / 1900 Output Total 300 / 1175 725 / 1900 Balance 20 / -510 510 / 0 Weight last 48 hrs Weight 36.968 kg Weight 36.061 kg Physical Exam HENMT: COMMON NORMALS: normocephalic HEAD & SCALP: normocephalic Neck/C-Spine: COMMON NORMALS: no JVD Resp: COMMON NORMALS: normal respiratory effort, no retractions, no use of accessory muscles and clear to auscultation bilaterally AUSCULTATION: clear to auscultation bilaterally Cardio: COMMON NORMALS: no JVD, regular rate, regular rhythm, S1 normal heart sound and S2 normal heart sound RATE: regular rate RHYTHM: regular rhythm HEART SOUNDS: S1 normal and S2 normal GI: COMMON NORMALS: normal to inspection, nondistended, normoactive bowel sounds Urinary Catheter Management^: Lakhani: Cath Placed During This Visit: no A&P Assessment and plan (1) Pressure ulcer of sacral region, unspecified stage: -Status post debridement. -Will need IV antibiotics for minimum of 6 weeks and wound care follow-up - Awaiting for skilled placement. On vancomycin and Primaxin. -Currently we are trying to place at [facility] Status: Acute Code(s): L89.159 - Pressure ulcer of sacral region, unspecified stage (2) Bacteremia: Currently on vancomycin, Primaxin. Will need minimum of 6 weeks IV antibiotics secondary to bacteremia. Staph epidermidis localized from blood. Other organisms from wound. Status: Acute Code(s): R78.81 - Bacteremia (3) Severe protein-calorie malnutrition: Continuing TPN at this time Status: Acute Code(s): E43 - Unspecified severe protein-calorie malnutrition (4) Septic shock: Resolved Status: Acute Code(s): A41.9 - Sepsis, unspecified organism; R65.21 - Severe sepsis with septic shock (5) Elevated troponin: Type II, monitored for chest pain Status: Acute Code(s): R79.89 - Other specified abnormal findings of blood chemistry (6) Crohn's disease: Status: Acute Code(s): K50.90 - Crohn's disease, unspecified, without complications (7) Chronic kidney disease, stage III (moderate): Stable Status: Acute Code(s): N18.3 - Chronic kidney disease, stage 3 (moderate) (8) Chronic anemia: Stable Status: Acute Code(s): D64.9 - Anemia, unspecified Additional A&P Information Additional A&P Information: replace magnesium, awaiting snf placement Attestations Medical Necessity Statement*: Cards continued hospitalization, for sacral ulcers, requiring IV antibiotics Coding Level of Care Code Acute Md Do Resident Urgent [facility] for [facility] Fwd Diagnoses Pressure ulcer of sacral region, unspecified stage L89.159 Bacteremia R78.81 Severe protein-calorie malnutrition E43 Septic shock A41.9; R65.21 Elevated troponin R79.89 Crohn's disease K50.90 Chronic kidney disease, stage III (moderate) N18.3 Chronic anemia D64.9
[2019-03-09] MEDS: vancomycin 750 MG in sodium chloride 0.9% 250 ML 250 MG IV (20:44)
--- NOTE | 2019-03-09 21:26 | PC.NURSE ---
Patient speaking with daughter on speaker phone. Patient c/o of not having a bath or having hair cleaned. Patient stated, OT has been in to help with this but I don't like them standing there staring at me bathe. I and others RNs have offered to provide a sponge bath set up so her could help her and she refused this. Also, offered nice warm shower cap and patient also refused this. Anthony, her spouse, is sitting at bedside. I offered to him to provide the supplies and he replied I will talk to her about it. All of this was discussed with patient and her spouse while daughter was available on speaker phone. Will continue to offer bathing supplies.
[2019-03-10] VITALS (12 sets, daily range): BP systolic 91–112; BP diastolic 48–54; PULSE 77–88; RESP 12–40; TEMP 36.6; O2SAT 91–98
[2019-03-10] MEDS: morphine 4 mg/mL SDV 1 mL 2 MG IVP ×5 (01:56→18:41)
[2019-03-10] MEDS: ondansetron 2 mg/ML SDV 2 mL 4 MG IVP ×3 (02:01→14:45)
[2019-03-10] MEDS: LORazepam 2 mg/mL INJ 1 mL 1 MG IVP ×2 (03:58→13:55)
[2019-03-10 05:28] LABS: Basophils % 0.4 %; Eosinophils # 0.4 10^3/uL (0.0-0.8); Eosinophils % 5.2 %; Hemoglobin 8.6 g/dL (11.5-15.3); Lymphocytes # 0.9 10^3/uL (0.8-4.8); Lymphocytes % 12.3 %; Mean Corpuscular HGB Conc 30.7 g/dL (30.0-36.0); Mean Corpuscular Volume 94.3 fL (81-99); Mean Platelet Volume 10.9 fL (7.4-10.4); Monocytes # 0.7 10^3/uL (0.2-0.9); Monocytes % 9.6 %; Neutrophils # 5.1 10^3/uL (1.8-7.7); Neutrophils % 71.7 %; Nucleated Red Blood Cells % 0 %; Platelet Count 222 10^3/cmm (130-400); Red Blood Count 2.97 10^6/uL (4.1-5.3); Red Cell Distribution Width 17.1 % (12.1-15.1); White Blood Count 7.1 10^3/uL (4.0-10.0)
[2019-03-10 05:42] LABS: Alanine Aminotransferase 11 U/L (0-33); Alkaline Phosphatase 89 IU/L (35-105); Anion Gap 11.3 (5-19); Aspartate Amino Transferase 18 U/L (0-32); Blood Urea Nitrogen 19 mg/dL (8-23); Calcium 9.5 mg/Dl (8.8-10.2); Carbon Dioxide 24 mmol/L (22-29); Chloride 103 mmol/L (98-107); Globulin 1.9 g/dL (1.3-4.6); Glomerular Filtration Rate 71.1 mL/min (90-130); Glucose 88 mg/dL (74-106); Magnesium 1.6 mg/dL (1.7-2.3); Phosphorus 4.3 mg/dL (2.5-4.5); Potassium 4.3 mmol/L (3.5-5.1); Sodium 134 mmol/L (136-145); Total Bilirubin 0.3 mg/dL (0.15-1.2); Total Protein 4.9 g/dL (6.6-8.7)
--- NOTE | 2019-03-10 06:53 | PC.NURSE ---
Patient found on the floor. Patient refusing to allow staff to help her up to bed. Patient yelling and cursing staff. Spouse at bedside. Patient not telling staff how she ended up in the floor. Patient does not yell at staff as long as they are giving her pain medication every 4 hours on the hour. Informed Dr Kumar that patient was found in the floor and refusing help from staff. Patient finally allowed her spouse to help her up to bed. Patient continues to complain about the care while in pain . Patient won't allow staff to help her without yelling at staff. Patient lays curled up in bed refusing to move due to pain . Refuses repostioning. Patient has been educated regarding need for position changes and yells I know and continues to refuse. Patient refuses to take oral medications due to persistent nausea however requests cold cokes frequently. Patient has cookies in the bed with her hidden under the covers.
[2019-03-10] MEDS: magnesium sulfate premix 2 GM/50 ML PIGGYBACK IV (09:23)
--- NOTE | 2019-03-10 11:54 | PM.PN ---
Subjective Subjective: Interval history: Patient and are frustrated this morning, about the difficulties in care home placement, difficulties and home IV antibiotic treatments, possibly will require to go up to [place] to her daughters for better support at home Vitals/I&O/Wt Last Vital Signs Temp 97.8 F 03/10/19 11:24 Pulse 88 03/10/19 11:24 Resp 12 03/10/19 11:24 BP 97/48 03/10/19 11:24 Pulse Ox 97 03/10/19 11:24 03/09/19 03/10/19 03/10/19 22:59 06:59 14:59 Intake Total 595 / 755 978.6 / 1733.6 515 / 515 Output Total 250 / 250 250 / 250 Balance 595 / 755 728.6 / 1483.6 265 / 265 Weight last 48 hrs Weight 36.015 kg Weight 36.197 kg Weight 36.968 kg Physical Exam Neck/C-Spine: COMMON NORMALS: no JVD Chest: COMMONS NORMALS: inspection of chest normal Resp: COMMON NORMALS: normal respiratory effort, no retractions, no use of accessory muscles and clear to auscultation bilaterally AUSCULTATION: clear to auscultation bilaterally Cardio: COMMON NORMALS: no JVD, regular rate, regular rhythm, S1 normal heart sound and S2 normal heart sound RATE: regular rate RHYTHM: regular rhythm HEART SOUNDS: S1 normal and S2 normal GI: COMMON NORMALS: normal to inspection, nondistended, normoactive bowel sounds Urinary Catheter Management^: Lakhani: Cath Placed During This Visit: no A&P Assessment and plan (1) Pressure ulcer of sacral region, unspecified stage: -Status post debridement. -Will need IV antibiotics for minimum of 6 weeks and wound care follow-up - Awaiting for skilled placement. On vancomycin and Primaxin. -Currently we are trying to place at [facility] Status: Acute Code(s): L89.159 - Pressure ulcer of sacral region, unspecified stage (2) Bacteremia: Currently on vancomycin, Primaxin. Will need minimum of 6 weeks IV antibiotics secondary to bacteremia. Staph epidermidis localized from blood. Other organisms from wound. Status: Acute Code(s): R78.81 - Bacteremia (3) Severe protein-calorie malnutrition: Continuing TPN at this time Status: Acute Code(s): E43 - Unspecified severe protein-calorie malnutrition (4) Septic shock: Resolved Status: Acute Code(s): A41.9 - Sepsis, unspecified organism; R65.21 - Severe sepsis with septic shock (5) Elevated troponin: Type II, monitored for chest pain Status: Acute Code(s): R79.89 - Other specified abnormal findings of blood chemistry (6) Crohn's disease: Status: Acute Code(s): K50.90 - Crohn's disease, unspecified, without complications (7) Chronic kidney disease, stage III (moderate): Stable Status: Acute Code(s): N18.3 - Chronic kidney disease, stage 3 (moderate) (8) Chronic anemia: Stable Status: Acute Code(s): D64.9 - Anemia, unspecified Additional A&P Information Additional A&P Information: replace magnesium, awaiting care home placement Attestations Medical Necessity Statement*: Requires continued hospitalization due to sacral ulcers, awaiting care home placement, possible discharged to home with IV antibiotics Coding Level of Care Code Acute Boatbuilder Apprentice Wood for [facility] Fwd Diagnoses Pressure ulcer of sacral region, unspecified stage L89.159 Bacteremia R78.81 Severe protein-calorie malnutrition E43 Septic shock A41.9; R65.21 Elevated troponin R79.89 Crohn's disease K50.90 Chronic kidney disease, stage III (moderate) N18.3 Chronic anemia D64.9
--- NOTE | 2019-03-10 15:39 | PM.TDS ---
Transfer Summary Providers Date of Admission: 02/24/19 13:57 Date of Discharge: 03/10/19 Attending Provider at Admission: Cody Johns MD Attending Provider at Transfer: Cody Johns MD Primary Care Provider: Bina Yanes Anticipated Date of Transfer: Anticipated date of transfer: 03/10/19 Receiving Facility & Provider: Receiving Provider: [] Receiving facility: [] Diagnoses at Discharge Discharge Diagnosis (1) Pressure ulcer of sacral region, unspecified stage: Status: Acute (2) Bacteremia: Status: Acute (3) Severe protein-calorie malnutrition: Status: Acute (4) Septic shock: Status: Acute (5) Elevated troponin: Status: Acute (6) Crohn's disease: Status: Acute (7) Chronic kidney disease, stage III (moderate): Status: Acute (8) Chronic anemia: Status: Acute Reason for Visit Reason for Visit: Reason For Visit: Cellulitis, Elevated Trop Brief History: his is a 68-year-old female with a past medical history of bilateral pubic rami fracture, chronic stage II pressure ulcer over right sacrum, history of Crohn's disease with a colostomy, chronic hypokalemia, hypo-Akhil anemia, osteoporosis, history of chronic kidney disease stage III GFR 15-20, chronic anemia, chronic B12 deficiency who presents to the emergency room from the GI lab due to fevers, hypotension, complaints of right sacral pain. Patient states that she lives at home, get home health care, recently had a bilateral pubic rami fracture after fall, states that she has chronic pain related to the pubic rami fracture, tramadol does not help her pain. Patient states that she presented to the GI Lab for her chronic magnesium and potassium infusions, when she was noted to have a temperature of 100.1, and hypotensive episodes, blood pressures in the 90s over 60s, thus was sent over to the emergency room for evaluation. Patient currently denies any chest pain, palpitations, shortness of breath, cough, fevers, chills, nausea, vomiting, lightheadedness, dizziness, abdominal pain, has a colostomy, no increased drainage, no recent antibiotic use, no sick contacts, but does come to the hospital every week for her potassium and magnesium infusions, no URI symptoms. Patient states that why she is here is her right pelvic stage II pressure ulcer over the right sacrum hurts her all day, the pain is unbearable, and tramadol is not helping. Patient states that the deep tissue injury has been monitored by surgery as outpatient, they said that it looks clean, has a black eschar over it. No increased drainage. But does have significant pain over the area. Hospital Course Discharge Summary: Patient was admitted for septic shock with staph epidermidis bacteremia secondary to left chest port, and right sacrum ulcer with deep tissue infection. For her septic shock patient was admitted to the intensive care unit, required IV fluids, IV pressors, had a right central line placed, her left chest port infiltrated and could not be used, was placed on broad-spectrum antibiotics, she clinically improved, her left chest port was removed due to staph epidermidis bacteremia, was taken off pressors, of fluids, moved to the general medical floors, her right central line was removed, she had a permanent PICC line placed for chronic antibiotics, chronic magnesium, phosphate, potassium infusion secondary to her Crohn's disease and colostomy. for her right sacrum deep tissue infection, CT scan was unremarkable for osteomyelitis, but did show retro-sacral soft tissue gas posterior to the S5-C2 segments concerning for deep tissue infection, Dr. Go performed a bedside debridement in the intensive care unit, as anesthesiology felt uncomfortable with her hemodynamic status, she tolerated the procedure well, cultures were positive for E. coli, staph aureus, Enterococcus faecalis, blood cultures positive for Staphylococcus epidermidis. Repeat blood cultures are negative. Patient was placed on vancomycin and Primaxin, clinically did well, her wound improved, receiving wet-to-dry dressings daily. She will be discharged on vancomycin for a total of 6 weeks, has 4 weeks remaining. Starting on 02/24/2019, last Vanco trough on 03/07/2019 was 8.3, so her dose was increased to 750 every 24 hours, vanomycin trough is 03/11/2019 at 7 PM. She was also placed on Primaxin on 02/24/2019, given her kidney function her dose had to be adjusted, currently on Primaxin 250 every 12 hours, for the next 4 weeks. For her surgical wounds, she will have twice a day wet-to-dry dressing changes using mini Kerlix by ABDs. Other medical problems, had a NSTEMI type II secondary supply demand ischemia given her sepsis and CKD stage IV, denied chest pain during admission, no cardiac work-up required, her echocardiogram showed an ejection fraction of 60%, grade 2 out of 4 diastolic dysfunction. She has chronic kidney disease stage IV with a GFR between 15-20, baseline creatinine is 1 She has Crohn's disease, status post colostomy, she requires chronic IV transfusions of magnesium, phosphate, potassium for the last 5 years Has severe protein calorie malnutrition, deconditioning, cachexia, poor oral intake. She required inpatient TPN in addition to her oral diet. Physical Exam Urinary Catheter Management^: Lakhani: Cath Placed During This Visit: no TS Data Data Completed and Pending: Pending at discharge Category Date Time Status CBC [Complete Blo od Count w/Auto] A M LABS Lab 03/11/19 04:00 Ordered Comprehensive Met abolic Panel AM LA BS Lab 03/11/19 04:00 Ordered Magnesium AM LABS Lab 03/11/19 04:00 Ordered Phosphorus AM LAB S Lab 03/11/19 04:00 Ordered Vancomycin Trough Timed Lab 03/11/19 19:00 Ordered Labs from last 24 hours 03/10/19 03/10/19 05:07 05:07 WBC 7.1 RBC 2.97 L Hgb 8.6 L Hct 28.0 L MCV 94.3 MCH 29.0 MCHC 30.7 RDW 17.1 H Plt Count 222 MPV 10.9 H Neut % (Auto) 71.7 Lymph % (Auto) 12.3 [place] % (Auto) 9.6 Eos % (Auto) 5.2 Baso % (Auto) 0.4 Neut # (Auto) 5.1 Lymph # (Auto) 0.9 [place] # (Auto) 0.7 Eos # (Auto) 0.4 Baso # (Auto) 0.0 Nucleated RBC % (a uto) 0 Nucleated RBCs # 0.0 Sodium 134 L Potassium 4.3 Chloride 103 Carbon Dioxide 24 Anion Gap 11.3 BUN 19 Creatinine 0.8 GFR Calculation 71.1 L Glucose 88 Calcium 9.5 Phosphorus 4.3 Magnesium 1.6 L Total Bilirubin 0.3 AST 18 ALT 11 Alkaline Phosphata se 89 Total Protein 4.9 L Albumin 3.0 L Globulin 1.9 Vitals: Last Vital Signs Temp 97.8 F 03/10/19 11:24 Pulse 88 03/10/19 11:24 Resp 13 03/10/19 14:39 BP 97/48 03/10/19 11:24 Pulse Ox 97 03/10/19 14:39 TS Medications Medications Home Medications alendronate [Fosamax] 70 mg PO Q7D 03/01/19 [History Confirmed 03/01/19] aspirin 162.5 mg PO DAILY 03/01/19 [History Confirmed 03/01/19] atorvastatin [Lipitor] 20 mg PO DAILY 03/01/19 [History Confirmed 03/01/19] diphenhydramine HCl [Benadryl] 25 mg PO QID PRN 03/01/19 [History Confirmed 03/01/19] gabapentin 800 mg PO TID 03/01/19 [History Confirmed 03/01/19] melatonin 3 mg PO BEDTIME 03/01/19 [History Confirmed 03/01/19] nitroglycerin 0.4 mg SUBLINGUAL Q5M PRN 03/01/19 [History Confirmed 03/01/19] oxycodone [OxyContin] 10 mg PO Q4H PRN 03/01/19 [History Confirmed 03/01/19] promethazine 25 mg PO QID PRN 03/01/19 [History Confirmed 03/01/19] tramadol [Ultram] 50 mg PO Q6H PRN 03/01/19 [History Confirmed 03/01/19] Active Medications Acetaminophen (Tylenol) 650 mg PO Q4H PRN PRN Reason: MILD PAIN OR INCREASE TEMP Aspirin (Aspirin Ec) 81 mg PO DAILY [facility] Last Admin: 03/10/19 11:02 Dose: Not Given Documented by: Atorvastatin Calcium (Lipitor) 40 mg PO DAILY [facility] Last Admin: 03/10/19 11:03 Dose: Not Given Documented by: Famotidine (Pepcid Tab) 20 mg PO BID [facility] Last Admin: 03/10/19 11:03 Dose: Not Given Documented by: Gabapentin (Neurontin) 800 mg PO TID [facility] Last Admin: 03/10/19 14:48 Dose: Not Given Documented by: Haloperidol Lactate (Haldol Inj) 2 mg IM QID PRN PRN Reason: FOR SEVERE AGITATION Heparin Sodium (Beef Lung) (Heparin) 5,000 unit SUBCUT Q8H [facility] Last Admin: 03/10/19 12:37 Dose: Not Given Documented by: Imipenem/Cilastatin Sodium 250 (mg/ Sodium Chloride) 100 mls @ 200 mls/hr IV Q12H [facility] Last Infusion: 03/10/19 09:24 Dose: Infused Documented by: Multivitamins 10 ml/ Chromium/Copper/Manganese/Zinc 5 ml/Amino Acids/Electrolytes 1,015 mls @ 42 mls/hr IV .Q24H [facility] Last Admin: 03/10/19 05:59 Dose: 42 mls/hr Documented by: Fat Emulsion Intravenous (Intralipid 20%) 125 mls @ 10.417 mls/hr IV Q24H [facility] Last Infusion: 03/10/19 09:24 Dose: Infused Documented by: Vancomycin HCl 750 mg/ Sodium (Chloride) 250 mls @ 250 mls/hr IV Q24H [facility] Last Infusion: 03/09/19 22:43 Dose: Infused Documented by: Lorazepam (Ativan) 1 mg IVP Q8H PRN PRN Reason: nausea/pain adjunctive Last Admin: 03/10/19 13:55 Dose: 1 mg Documented by: Morphine Sulfate (Morphine) 2 mg IVP Q4H PRN PRN Reason: SEVERE PAIN Last Admin: 03/10/19 14:39 Dose: 2 mg Documented by: Ondansetron HCl (Zofran) 4 mg IVP Q6H PRN PRN Reason: NAUSEA AND VOMITING Last Admin: 03/10/19 14:45 Dose: 4 mg Documented by: Discharge Plan Discharge Patient Disposition: er [facility] Condition: Stable Prescriptions: New aspirin 81 mg Tablet,Delayed Release (Dr/Ec) 81 mg PO DAILY 30 Days Qty: 30 RF: 0 famotidine 20 mg Tablet 20 mg PO BID 30 Days Qty: 60 RF: 0 gabapentin 400 mg Capsule 800 mg PO TID 30 Days Qty: 180 RF: 0 Intralipid 20 % emulsion 25 gm IVP DAILY Qty: 125 RF: 0 Infuvite Adult (Vial 1) 3,300 unit- 150 mcg/5 mL solution 5 ml IVP Q24H Qty: 5 RF: 0 Infuvite Adult (Vial 2) 600 mcg-60 mcg- 5 mcg/5 mL solution 5 ml IVP Q24H Qty: 5 RF: 0 atorvastatin 40 mg Tablet 40 mg PO DAILY 30 Days Qty: 30 RF: 0 imipenem-cilastatin 250 mg recon soln 250 mg IVP Q12H 28 Days Qty: 1 RF: 0 vancomycin in 0.9 % sodium chl 750 mg/150 mL piggyback 750 mg IVP Q24H 28 Days Qty: 4200 RF: 0 Continued OxyContin 10 mg Tablet,Oral Only,Ext.Rel.12 Hr 10 mg PO Q4H PRN (Reason: Pain, Severe) RF: 0 melatonin 3 mg Tablet 3 mg PO BEDTIME RF: 0 nitroglycerin 0.4 mg Tablet, Sublingual 0.4 mg SUBLINGUAL Q5M PRN (Reason: Chest Pain) RF: 0 promethazine 25 mg Tablet 25 mg PO QID PRN (Reason: Nausea) RF: 0 Ultram 50 mg Tablet 50 mg PO Q6H PRN (Reason: Pain, Moderate) RF: 0 Fosamax 70 mg Tablet 70 mg PO Q7D 30 Days Qty: 4 RF: 0 Discontinued Lipitor 20 mg Tablet 20 mg PO DAILY RF: 0 aspirin 162.5 mg Capsule,Extended Release 24hr 162.5 mg PO DAILY RF: 0 Benadryl 25 mg Capsule 25 mg PO QID PRN (Reason: Allergy Symptoms) RF: 0 gabapentin 800 mg Tablet 800 mg PO TID RF: 0 Discharge Orders: Discharge Order (Routine); Ordered 03/10/19 Ordered By: Cody Johns Other Ambulatory Orders: Complete Blood Count w/Auto (Routine) Timeframe: 1 Day Location: Determined by Patient Ordered By: Cody Johns Comprehensive Metabolic Panel (Routine) Timeframe: 1 Day Facility: [facility] - Location: Lab - Main Lab Ordered By: Cody Johns Vancomycin Trough (Routine) Timeframe: 1 Day Facility: [facility] - Location: Lab - Main Lab Ordered By: Cody Johns Referrals: Roxy Dalton PROCEDURAL NURSE at Wound care [Other] (Follow up at first available appointment) Discharge Diet: tpn with regular diet Activity Restrictions/Additional Instructions: Patient was educated with regard to her condition and all questions have been answered. Patient should benefit from wound VAC therapy application of white foam followed by black foam -For Staphylococcus epidermidis bacteremia, and right sacrum ulcer with deep tissue infection, status post debridement on vancomycin 750 every 24 hours, recheck Vanco trough tomorrow, for the next 4 weeks. Primaxin to 250 mg every 12 hours, for the next 4 weeks -Continue wet-to-dry dressing, -For chronic hypokalemia and hypomagnesemia and hypophosphatemia, requires IV replacement due to Crohn's disease, chronic colostomy -Has right PICC line in place -For chronic malnutrition, protein calorie malnutrition, cachexia, on TPN Transfer Attestations Time Spent in Transfer Care*: greater than 30 min Quality Metrics Clinical Quality Measures: During this hospital stay, did patient experience: Stroke Contraindication to Antithrombotic: Antithrombotic prescribed Contraindication to Anticoagulation: Overlap treatment not indicated Contraindication to Statin: Statin prescribed Coding Level of Care Code Acute Vp Lab for g Fwd Diagnoses Pressure ulcer of sacral region, unspecified stage L89.159 Bacteremia R78.81 Severe protein-calorie malnutrition E43 Septic shock A41.9; R65.21 Elevated troponin R79.89 Crohn's disease K50.90 Chronic kidney disease, stage III (moderate) N18.3 Chronic anemia D64.9
--- NOTE | 2019-03-10 20:16 | PC.NURSE ---
Pt taken via stretcher with ambulance [facility]. Given paper work and spouse at .
== END 2019-03-10 20:05 | DRG 871 ==
LOC: CSU 03-08 09:25 → MEDSURG 03-10 14:59
PROVIDERS: Internal Medicine; Admitting Provider Family Medicine; Emergency Provider Emergency Medicine; Family Provider Family Medicine; PCP Family Medicine; Referring Provider Family Medicine; Visit Provider Family Medicine
DX: A41.9 Sepsis, unspecified organism (principal); R65.21 Severe sepsis with septic shock; I21.4 Non-ST elevation (NSTEMI) myocardial infarction; E43 Unspecified severe protein-calorie malnutrition; L03.818 Cellulitis of other sites; Z68.1 Body mass index [BMI] 19.9 or less, adult; K50.90 Crohn's disease, unspecified, without complications; N18.4 Chronic kidney disease, stage 4 (severe); L89.152 Pressure ulcer of sacral region, stage 2; S32.591D Other specified fracture of right pubis, subsequent encounter for fracture with routine healing; X58.XXXD Exposure to other specified factors, subsequent encounter; D63.1 Anemia in chronic kidney disease; Z79.82 Long term (current) use of aspirin; M81.0 Age-related osteoporosis without current pathological fracture; Z91.81 History of falling; Z93.3 Colostomy status
CPT/HCPCS: 36415; 36416; 36569; 36591; 36592; 51702; 70450; 71045; 72192; 78014; 80048; 80053; 80202; 82607; 82746; 82962; 83540; 83550; 83605; 83735; 84100; 84145; 84484; 85025; 85610; 85651; 85730; 86140; 86850; 86900; 86901; 86920; 87040; 87070; 87075; 87077; 87086; 87176; 87186; 87205; 87641; 88307; 93005; 93306; 93970; 94660; 96360; 96372; 96375; 97161; 97165; 97167; 97530; 97535; 99285; A4216; A9540; A9567; J0743; J1170; J1630; J1644; J1940; J2001; J2060; J2250; J2270; J2405; J3010; J3370; J3475; J3480; J7050; P9016; P9047; Q0163; Q3014; Q4081

== ENCOUNTER 2019-04-22 12:56 | Outpatient (RCR) | payer MEDICARE, SELFPAY | END 2019-04-30 23:59 | disposition home or self-care (01) | LOC: WOUND 12:56 | PROVIDERS: Family Provider Family Medicine; PCP Family Medicine; Visit Provider Surgery | DX: I96 Gangrene, not elsewhere classified (principal); L89.153 Pressure ulcer of sacral region, stage 3 | CPT/HCPCS: 11042; 99213; G0463 ==

== ENCOUNTER 2019-05-02 07:16 | Inpatient (IN) | payer MEDICARE, SELFPAY ==
[2019-05-02] VITALS (29 sets, daily range): BP systolic 67–128; BP diastolic 30–63; PULSE 94–129; RESP 16–32; TEMP 36.4–36.6; O2SAT 89–100; BMI 12.8
--- NOTE | 2019-05-02 07:40 | PC.NURSE ---
Patient presents to ER for tremors that have been present since Thursday. Patient states she usually recieves weekly infusions of both magnesium and potassium. Recently she had to switch PCP and during this switch has been unable to receive her infusions, it has been 3 weeks since her last infusion.
--- NOTE | 2019-05-02 07:41 | ED_ITS ---
Entered by Dedra Ashton, acting as scribe for Alfredito Palmer MD May 02, 2019 07:16 HPI - General Adult General: Chief complaint: General Medical Stated complaint: tremors Time Seen by Provider: 05/02/19 07:42 Source: patient and family (spouse) Mode of arrival: wheelchair Limitations: physical limitation History of Present Illness: HPI narrative: 69 yo female presents with tremors and weakness. pt states this started about 4 days ago. pt has been off of her magnesium and potassium weekly infusions due to changing doctors (chronic fluid/electrolyte losses due to short gut syndrome/illeostomy). pt has a ulcer on her sacrum that she has had for several months that is not healing per spouse. poor po intake due to nausea, cannot sleep bc of jerking pt denies any other symptoms at this time. complaint: weakness, tremors Onset (ago): day(s) (4 days ago) Location: upper extremity and lower extremity Radiation: non-radiation Severity: similar to prior episodes Pain Consistency: constant Relieving factors: none Exacerbating factors: none Associated symptoms: Reports malaise and weakness; Deny chest pain, nausea, palpitations or vomiting Treatments prior to arrival: none Review of Systems General: Reports: 10 or more systems reviewed and unremarkable except in HPI and below Const: Reports: change in appetite, change in weight, malaise and change in sleep pattern; Denies: fever or chills Card: Denies: chest pain, palpitations or edema GI: Reports: diarrhea (chronic); Denies: abdominal pain, nausea, vomiting, vomiting blood or difficulty swallowing Musc: Reports: muscle weakness (generalized) Neuro: Reports: weakness in extremities and involuntary movements PFS ED PFSH: Medical History Atrial fibrillation Chronic anemia Chronic kidney disease, stage III (moderate) Crohn's disease Hypersomnia Hypokalemia Local infection due to Port-A-Cath Myocardial infarction (lateral wall) Systolic congestive heart failure Surgical History H/O ileostomy H/O total colectomy History of delivery x4 Hx of appendectomy Port-A-Cath in place Family History Other CAD (coronary artery disease) Cancer Congestive heart failure Diabetes Hyperlipidemia Social History Smoking and tobacco status: never smoked Alcohol intake: never Marital status: Physical Exam Narrative: EXAM NARRATIVE: pt has a ILeostomy bag. Const: COMMON NORMALS: negative for average body habitus, negative for healthy appearing and negative for well nourished EXAM LIMITATIONS: no altered mental status GENERAL APPEARANCE: cooperative Resp: AUSCULTATION: crackles Cardio: RATE: tachycardic HEART SOUNDS: murmur Back/Pelvis: SACRUM: erythema (stage 2 ulcer on right) Extremity: NARRATIVE EXTREMITY EXAM: uncontrolled tremors upper and lower extremities. Skin: GENERAL SKIN EXAM: turgor decreased WOUNDS: Yes wounds noted WOUNDS: Yes wounds noted Course Vital Signs: Vital signs: Vital Signs Temperature 97.6 F 05/02/19 07:21 Pulse Rate 95 05/02/19 08:30 Respiratory Rate 18 05/02/19 08:30 Blood Pressure 81/44 05/02/19 08:30 Pulse Oximetry 95 05/02/19 08:30 MDM - General Adult MDM Narrative: Medical decision making narrative: 69-year-old female presents with chief complaint of involuntary muscle twitches. Patient is actually hyperreflexic. This does not make a lot of sense that she is usually hypokalemic and hypomagnesemic. The patient has not been seen for several weeks due to her provider changing. Work-up illustrates that the patient has severe acute renal failure. She has acid-base disturbances, hyperkalemia, GFR 2, and other typical findings of complete renal failure. This is new. It is unclear why the patient went into renal failure. She was on vancomycin in March. She has not had her kidney function checked since then. Dr. Cody was consulted and she actually consulted with nephrology as the patient will require emergent dialysis. Patient was admitted. Patient was given bicarb and calcium for myocardial stabilization given hyperkalemia. Patient had a short run of ventricular tachycardia. She converted spontaneously. Defibrillation pads were placed on her chest. Patient is awaiting nephrology orders. I have informed her of her renal failure and need for treatment. Patient consents to go through dialysis temporarily but states that if it becomes a chronic issue, she may not continue it. Lab Data: Labs: Lab Results 05/02/19 05/02/19 05/02/19 Range/Units 08:05 08:05 08:05 WBC 12.5 H (4.0-10.0) 10^3/ uL RBC 3.63 L (4.1-5.3) 10^6/u L Hgb 9.8 L (11.5-15.3) g/dL Hct 30.4 L (37.0-47.0) % MCV 83.7 (81-99) fL MCH 27.0 L (28.0-34.0) pg MCHC 32.2 (30.0-36.0) g/dL RDW 16.7 H (12.1-15.1) % Plt Count 352 (130-400) 10^3/c mm MPV 11.8 H (7.4-10.4) fL Neut % (Auto) 76.8 % Lymph % (Auto) 10.3 % [place] % (Auto) 9.7 % Eos % (Auto) 2.6 % Baso % (Auto) 0.3 % Neut # (Auto) 9.6 H (1.8-7.7) 10^3/u L Lymph # (Auto) 1.3 (0.8-4.8) 10^3/u L [place] # (Auto) 1.2 H (0.2-0.9) 10^3/u L Eos # (Auto) 0.3 (0.0-0.8) 10^3/u L Baso # (Auto) 0.0 (0.0-0.1) 10^3/u L Nucleated RBC % (a uto) 0 % Nucleated RBCs # 0.0 /100WBC Sodium 125 L (136-145) mmol/L Potassium 6.6 H (3.5-5.1) mmol/L Chloride 70 L (98-107) mmol/L Carbon Dioxide 22 (22-29) mmol/L Anion Gap 39.6 H (5-19) BUN 137 H* D (8-23) mg/dL Creatinine 17.6 H* (0.5-0.9) mg/dL GFR Calculation 2.0 L (90-130) mL/min Glucose 122 H (65-115) mg/dL Lactate 1.4 (0.5-2.2) mmol/L Calcium 8.7 (8.5-10.5) mg/dL Ionized Calcium Me as (1.1-1.4) mmol/L Phosphorus 16.1 H* (2.5-4.5) mg/dL Magnesium 2.3 (1.7-2.3) mg/dL Total Bilirubin 0.3 (0.15-1.2) mg/dL AST 13 (0-32) U/L ALT 7 (0-33) U/L Alkaline Phosphata se 135 H (35-105) IU/L Creatine Kinase 31 (26-192) U/L Total Protein 8.1 (6.6-8.7) g/dL Albumin 4.2 (3.5-5.2) g/dL Globulin 3.9 (1.3-4.6) g/dL Prealbumin (20-40) mg/dL Lipase 244 H (13-60) U/L TSH 0.27 (0.27-4.20) uIU/ mL Urine Color (Yellow) Urine Appearance (CLEAR) Urine pH (5-7) Ur Specific Gravit y (1.005-1.030) Urine Protein (Negative) Urine Glucose (UA) (Normal) Urine Ketones (Negative) Urine Blood (Negative) Urine Nitrate (Negative) Urine Bilirubin (NEGATIVE) Urine Urobilinogen (Negative) mg/dL Ur Leukocyte Margie ase (Negative) Urine RBC (0-2) /hpf Urine WBC (0-5) /hpf Ur Squamous Epith Cells (0-5) Urine Bacteria (NONE) 05/02/19 05/02/19 05/02/19 Range/Units 08:05 08:05 08:45 WBC (4.0-10.0) 10^3/ uL RBC (4.1-5.3) 10^6/u L Hgb (11.5-15.3) g/dL Hct (37.0-47.0) % MCV (81-99) fL MCH (28.0-34.0) pg MCHC (30.0-36.0) g/dL RDW (12.1-15.1) % Plt Count (130-400) 10^3/c mm MPV (7.4-10.4) fL Neut % (Auto) % Lymph % (Auto) % [place] % (Auto) % Eos % (Auto) % Baso % (Auto) % Neut # (Auto) (1.8-7.7) 10^3/u L Lymph # (Auto) (0.8-4.8) 10^3/u L [place] # (Auto) (0.2-0.9) 10^3/u L Eos # (Auto) (0.0-0.8) 10^3/u L Baso # (Auto) (0.0-0.1) 10^3/u L Nucleated RBC % (a uto) % Nucleated RBCs # /100WBC Sodium (136-145) mmol/L Potassium (3.5-5.1) mmol/L Chloride (98-107) mmol/L Carbon Dioxide (22-29) mmol/L Anion Gap (5-19) BUN (8-23) mg/dL Creatinine (0.5-0.9) mg/dL GFR Calculation (90-130) mL/min Glucose (65-115) mg/dL Lactate (0.5-2.2) mmol/L Calcium (8.5-10.5) mg/dL Ionized Calcium Me as 0.9 L (1.1-1.4) mmol/L Phosphorus (2.5-4.5) mg/dL Magnesium (1.7-2.3) mg/dL Total Bilirubin (0.15-1.2) mg/dL AST (0-32) U/L ALT (0-33) U/L Alkaline Phosphata se (35-105) IU/L Creatine Kinase (26-192) U/L Total Protein (6.6-8.7) g/dL Albumin (3.5-5.2) g/dL Globulin (1.3-4.6) g/dL Prealbumin 28.6 (20-40) mg/dL Lipase (13-60) U/L TSH (0.27-4.20) uIU/ mL Urine Color Yellow (Yellow) Urine Appearance Sl hazy (CLEAR) Urine pH 5.0 (5-7) Ur Specific Gravit y 1.020 (1.005-1.030) Urine Protein Trace (Negative) Urine Glucose (UA) Norm (Normal) Urine Ketones Negative (Negative) Urine Blood 2+ H (Negative) Urine Nitrate Negative (Negative) Urine Bilirubin Neg (NEGATIVE) Urine Urobilinogen Norm (Negative) mg/dL Ur Leukocyte Margie ase 2+ H (Negative) Urine RBC 0-4 H (0-2) /hpf Urine WBC 5-10 H (0-5) /hpf Ur Squamous Epith Cells 10-15 H (0-5) Urine Bacteria Trace (NONE) 05/02/19 Range/Units 11:44 WBC (4.0-10.0) 10^3/ uL RBC (4.1-5.3) 10^6/u L Hgb (11.5-15.3) g/dL Hct (37.0-47.0) % MCV (81-99) fL MCH (28.0-34.0) pg MCHC (30.0-36.0) g/dL RDW (12.1-15.1) % Plt Count (130-400) 10^3/c mm MPV (7.4-10.4) fL Neut % (Auto) % Lymph % (Auto) % [place] % (Auto) % Eos % (Auto) % Baso % (Auto) % Neut # (Auto) (1.8-7.7) 10^3/u L Lymph # (Auto) (0.8-4.8) 10^3/u L [place] # (Auto) (0.2-0.9) 10^3/u L Eos # (Auto) (0.0-0.8) 10^3/u L Baso # (Auto) (0.0-0.1) 10^3/u L Nucleated RBC % (a uto) % Nucleated RBCs # /100WBC Sodium 125 L (136-145) mmol/L Potassium 5.9 H (3.5-5.1) mmol/L Chloride 75 L (98-107) mmol/L Carbon Dioxide 22 (22-29) mmol/L Anion Gap 33.9 H (5-19) BUN 134 H* (8-23) mg/dL Creatinine 16.5 H* (0.5-0.9) mg/dL GFR Calculation 2.2 L (90-130) mL/min Glucose 117 H (65-115) mg/dL Lactate (0.5-2.2) mmol/L Calcium 9.5 (8.5-10.5) mg/dL Ionized Calcium Me as (1.1-1.4) mmol/L Phosphorus (2.5-4.5) mg/dL Magnesium (1.7-2.3) mg/dL Total Bilirubin 0.2 (0.15-1.2) mg/dL AST 11 (0-32) U/L ALT 7 (0-33) U/L Alkaline Phosphata se 118 H (35-105) IU/L Creatine Kinase (26-192) U/L Total Protein 7.4 (6.6-8.7) g/dL Albumin 4.0 (3.5-5.2) g/dL Globulin 3.4 (1.3-4.6) g/dL Prealbumin (20-40) mg/dL Lipase (13-60) U/L TSH (0.27-4.20) uIU/ mL Urine Color (Yellow) Urine Appearance (CLEAR) Urine pH (5-7) Ur Specific Gravit y (1.005-1.030) Urine Protein (Negative) Urine Glucose (UA) (Normal) Urine Ketones (Negative) Urine Blood (Negative) Urine Nitrate (Negative) Urine Bilirubin (NEGATIVE) Urine Urobilinogen (Negative) mg/dL Ur Leukocyte Margie ase (Negative) Urine RBC (0-2) /hpf Urine WBC (0-5) /hpf Ur Squamous Epith Cells (0-5) Urine Bacteria (NONE) Discharge Plan Discharge Patient Disposition: Admitted As Inpatient Condition: Stable Referrals: Bina Yanes MD [Primary Care Provider] - Coding Level of Care Code ED Live Truck Operator for Chg Fwd Exam Detailed The documentation recorded by the Poli kim Bridget Annette, accurately reflects the service I personally performed and the decisions made by Estela payne Jacob, MD May 02, 2019 07:16
--- NOTE | 2019-05-02 07:57 | ECG_ITS ---
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 [email or web address]
[2019-05-02 08:15] LABS: Basophils % 0.3 %; Eosinophils # 0.3 10^3/uL (0.0-0.8); Eosinophils % 2.6 %; Hematocrit 30.4 % (37.0-47.0); Hemoglobin 9.8 g/dL (11.5-15.3); Lymphocytes # 1.3 10^3/uL (0.8-4.8); Lymphocytes % 10.3 %; Mean Corpuscular HGB Conc 32.2 g/dL (30.0-36.0); Mean Corpuscular Volume 83.7 fL (81-99); Mean Platelet Volume 11.8 fL (7.4-10.4); Monocytes # 1.2 10^3/uL (0.2-0.9); Monocytes % 9.7 %; Neutrophils # 9.6 10^3/uL (1.8-7.7); Neutrophils % 76.8 %; Nucleated Red Blood Cells % 0 %; Platelet Count 352 10^3/cmm (130-400); Red Blood Count 3.63 10^6/uL (4.1-5.3); Red Cell Distribution Width 16.7 % (12.1-15.1); White Blood Count 12.5 10^3/uL (4.0-10.0)
[2019-05-02] MEDS: sodium chloride 0.9% 500 ML IV (08:15)
--- NOTE | 2019-05-02 08:16 | PC.NURSE ---
Blood draw performed upon port access. 10mL wasted. FLushed with 20mL of NS following blood draw. Pt tolerated well.
[2019-05-02 08:17] LABS: Ionized Calcium 0.9 mmol/L (1.1-1.4)
[2019-05-02 08:34] LABS: Lactate (Lactic Acid level) 1.4 mmol/L (0.5-2.2)
[2019-05-02 08:42] LABS: Prealbumin 28.6 mg/dL (20-40)
[2019-05-02 08:54] LABS: Alanine Aminotransferase 7 U/L (0-33); Albumin Level 4.2 g/dL (3.5-5.2); Alkaline Phosphatase 135 IU/L (35-105); Anion Gap 39.6 (5-19); Aspartate Amino Transferase 13 U/L (0-32); Calcium 8.7 mg/dL (8.5-10.5); Carbon Dioxide 22 mmol/L (22-29); Chloride 70 mmol/L (98-107); Creatine Phosphokinase 31 U/L (26-192); Creatinine Clr Calc Pharmacy 1.4908; Globulin 3.9 g/dL (1.3-4.6); Glucose 122 mg/dL (65-115); Lipase 244 U/L (13-60); Magnesium 2.3 mg/dL (1.7-2.3); Potassium 6.6 mmol/L (3.5-5.1); Sodium 125 mmol/L (136-145); Thyroid Stimulating Hormone 0.27 uIU/mL (0.27-4.20); Total Bilirubin 0.3 mg/dL (0.15-1.2); Total Protein 8.1 g/dL (6.6-8.7)
[2019-05-02 09:09] LABS: Add Urine Microscopic? YES; Bilirubin Urine Neg (NEGATIVE); Blood Urine 2+ (Negative); Glucose Urine UA Norm (Normal); Ketones Urine Negative (Negative); Leukocyte Esterase Urine 2+ (Negative); Nitrate Urine Negative (Negative); Protein Urine Trace (Negative); Urine Appearance SL Hazy (CLEAR); Urine Color Yellow (Yellow); Urobilinogen Urine Norm (Negative)
[2019-05-02 09:11] LABS: Add Urine Culture? No; Bacteria Urine TRACE; RBC Urine 0-4 /hpf (0-2)
[2019-05-02 09:12] LABS: Blood Urea Nitrogen 137 mg/dL (8-23); Phosphorus 16.1 mg/dL (2.5-4.5)
--- NOTE | 2019-05-02 10:02 | PC.NURSE ---
V-tach noted on monitor. BP 67/43. Patient placed on combo pads and connected to [employer] monitor. EMD notifed. Rhythm strip printed and given to EMD Primary nurse notified.
[2019-05-02] MEDS: folic acid 1 MG, multivitamin inj 10 ML, thiamine 100 MG in sodium chloride 0.9% 1,000 ML 252.8 MG IV (10:27)
--- NOTE | 2019-05-02 10:38 | US_ITS ---
WS: [id number] RENAL ULTRASOUND REASON FOR EXAM: LUIS ALFREDO, hyperkalemia TECHNIQUE: Grayscale and Doppler ultrasound examination of the kidneys. FINDINGS: Right kidney: Right kidney measures 7.8 cm x 3.6 cm x 2.9 cm. Cortex on the right kidney 1.15 cm. Left kidney: Left kidney measures 7.7 cm x 5.4 cm x 4.0 cm. Cortex left kidney 1.19 cm. Both kidneys are small show no definite hydronephrosis. No definite stones. US/US renal BI* [id number] IMPRESSION: Mild kidneys with normal cortex bilaterally.
--- NOTE | 2019-05-02 10:41 | PC.PHAR ---
PT STATES SHE HASNT TAKEN HER MEDS FOR 2 WEEKS. PT STATES THE MEDS SHE BROUGHT IN THE WHITE BAG IS THE MEDS SHE IS SUPPOSE TO TAKE
--- NOTE | 2019-05-02 11:14 | XR_ITS ---
WS: [id number] XR chest 1V portable [id number] REASON FOR EXAM: cough, recent port placement FINDINGS: A port is noted extends from the left side the tip is in the inferior vena cava. Mild blunt ing of the left costophrenic angle is seen. There is arteriosclerotic changes seen in the arch of the aorta. XR/XR chest 1V portable [id number] IMPRESSION: Port replacement on the left in good position the tip is in the inferior vena c andi.
--- NOTE | 2019-05-02 11:19 | USCV_ITS ---
Janene Gallegos Age: 69 Gender: F : 1950 Exam Date: 05/02/2019 12:36 Ordering Phys: Joana Cody DO Technologist: Exam Location: [facility] [place]_ Indication: CHEST PAIN BP: 109 / 51 HR: 102 Rhythm: Sinus Technical Quality: Technically difficult study MEASUREMENTS (Male / Female) Normal Values 2D ECHO LV Diastolic Diameter PLAX 2.9 cm 4.2 - 5.9 / 3.9 - 5.3 cm LV Systolic Diameter PLAX 1.8 cm IVS Diastolic Thickness 1.0 cm 0.6 - 1.0 / 0.6 - 0.9 cm IVS Systolic Thickness 1.1 cm LVPW Diastolic Thickness 0.8 cm 0.6 - 1.0 / 0.6 - 0.9 cm LVPW Systolic Thickness 0.9 cm LV Ejection Fraction 2D Teich 71.1 % LV Ejection Fraction MOD 2C 69.1 % LV Ejection Fraction 2C AL 70.7 % LA Width 3.7 cm LA Height 3.1 cm RA Width 3.1 cm RA Height 2.7 cm DOPPLER MV Area PHT 5.0 cm squared Mitral E to A Ratio 1.0 MV E' Velocity 9.0 cm/s Mitral E to MV E' Ratio 6.6 Mitral E to LV E' Lateral Ratio 7.9 Mitral E to LV E' Septal Ratio 5.7 TR Peak Velocity 223.0 cm/s TR Peak Gradient 19.9 mmHg TV Peak E Velocity 71.0 cm/s Right Atrial Pressure 3.0 mmHg Pulmonary Artery Systolic Pressu 22.9 mmHg FINDINGS Left Ventricle Normal left ventricular size and systolic function, EF 70 %. No regional wall motion abnormalities. Grade I/IV diastolic dysfunction (abnormal relaxation filling pattern), normal to mildly elevated filling pressures. Right Ventricle The right ventricle is normal in size and function. Right Atrium The right atrium is normal in size. Left Atrium The left atrium is normal in size. Mitral Valve Thickened mitral valve. Aortic Valve Thickened aortic valve. Tricuspid Valve No gross abnormalities noted Pulmonic Valve Pulmonic valve not well visualized. Pericardium Normal pericardium without effusion. Aorta Normal ascending aorta dimension. CONCLUSIONS Normal left ventricular size and systolic function, EF 70 %. No regional wall motion abnormalities. Grade I/IV diastolic dysfunction (abnormal relaxation filling pattern), normal to mildly elevated filling . Thickened mitral valve. Thickened aortic valve. There is no pericardial effusion. There are no intracardiac masses. Dr Blue Rios MD FACC (Electronically Signed) Final Date: 03 May 2019 21:43 S
--- NOTE | 2019-05-02 11:23 | PM.HP ---
Providers/Chief Complaint Admitting Physician: Joana Cody DO Primary Care Provider: Dr. Gilman Chief Complaint: Tremor, weakness History of Present Illness Janene Gallegos is a 69 year old female with a past medical history of Crohn's disease chronic hypokalemia and hypomagnesemia as well as history of arthritis and hypertension as well as chronic sacral ulcer. Patient had recently been discharged from the hospital and transferred to long-term acute care facility, on 03/10/2019. Patient reported that she was discharged to home, supposed to have home health but no services were set up. She has not followed with her primary care provider since that time that she is in between primary care doctors. She stated that she did have a new Port-A-Cath placement last week by Dr. Larkin. Patient was discharged from [facility] on 04/17/[facility]. She received 4 weeks of IV antibiotics, vancomycin during her previous hospitalization. She reports that she has not been taking any of her home medications over the past 1 week, no [id number] medications. Patient reports decreased appetite over the past 2 to 3 days. She reports decreased ostomy output and decreased urine output over the past couple of days as well. She has chronic kidney disease and follows with Dr. Benz, has not had an appointment in several months. Typically baseline creatinine is around 1. Patient denies any recent illness, no fevers or chills. She reports 2 to 3 days of increased cough and slight sore throat. Patient was seen and evaluated in the emergency department noted to have acute renal failure with a creatinine of 17.6, BUN of 137 and a potassium of 6.6. She was given insulin, D50, calcium gluconate and bicarb. Nephrology was consulted. Review of Systems Const: Reports: body aches and change in appetite; Denies: fever or chills Eyes: Denies: change in vision ENMT: Denies: nasal congestion Card: Denies: chest pain, palpitations or edema Resp: Reports: productive cough; Denies: shortness of breath or coughing up blood GI: Reports: other (Decreased ostomy output); Denies: abdominal pain, nausea, vomiting, blood in stool or black tarry stool : Reports: decreased urine ouput; Denies: painful urination or blood in urine Musc: Reports: muscle cramps; Denies: extremity pain Skin/Breast: Reports: other (Chronic sacral ulcer, unchanged); Denies: rash Neuro: Reports: other (Muscle twitching); Denies: headache or dizziness Psych: Denies: anxiety or depression Endo: Denies: excessive urination or hot flashes Frankie/Lymph: Denies: easy bruising or easy bleeding Medications/Allergies Home Medications Medication Instructions Recorded Confirmed Last Taken Type MediHoney (honey) See Rx Instructions .ROUTE .COMPLEX 05/02/19 05/02/19 Unknown History [id number] 1 cap PO DAILY 05/02/19 05/02/19 Unknown History aspirin [Aspir-81] 81 mg PO DAILY 05/02/19 05/02/19 Unknown History atorvastatin [Lipitor] 20 mg PO BEDTIME 05/02/19 05/02/19 Unknown History carvedilol 3.125 mg PO BID 05/02/19 05/02/19 Unknown History famotidine 20 mg PO DAILY 05/02/19 05/02/19 Unknown History furosemide [Lasix] 40 mg PO QAM 05/02/19 05/02/19 Unknown History lisinopril 2.5 mg PO DAILY 05/02/19 05/02/19 Unknown History ondansetron HCl [Zofran] 8 mg PO TID PRN 05/02/19 05/02/19 Unknown History phenazopyridine 97.5 mg PO PRN 05/02/19 05/02/19 Unknown History potassium chloride 20 meq PO QAM 05/02/19 05/02/19 Unknown History venlafaxine [Effexor XR] 37.5 mg PO BEDTIME 05/02/19 05/02/19 Unknown History Allergies Allergy/AdvReac Type Severity Reaction Status Date / Time amoxicillin Allergy ALGY-Hives Verified 04/26/19 12:50 cefazolin [From Ancef] Allergy ALGY-Rash Verified 04/26/19 12:50 cephalexin [From Keflex] Allergy ALGY-Rash Verified 04/26/19 12:50 codeine Allergy ALGY-Hives Verified 04/26/19 12:50 doxycycline Allergy ALGY-Hives Verified 04/26/19 12:50 erythromycin base Allergy ALGY-Hives Verified 04/26/19 12:50 [From E.E.S.] hydrocodone [From [place]] Allergy Unknown Verified 04/26/19 12:50 latex Allergy Unknown Verified 04/26/19 12:50 metoclopramide Allergy Unknown Verified 04/26/19 12:50 neomycin Allergy ALGY-Hives Verified 04/26/19 12:50 Penicillins Allergy ALGY-Hives Verified 04/26/19 12:50 polyethylene glycol Allergy ADR-Swelling Verified 04/26/19 12:50 of the Eye pregabalin [From Lyrica] Allergy ALGY-Swell Verified 04/26/19 12:50 Lip/Tongue/Throat prochlorperazine Allergy ALGY-Hives Verified 04/26/19 12:50 [From Compazine] propoxyphene [From Darvon] Allergy ALGY-Hives Verified 04/26/19 12:50 sapropterin Allergy ADR-Swelling Verified 04/26/19 12:50 [From Tetrahydrobiopterin of the Eye Di-HCL] scopolamine Allergy ALGY-Hives Verified 04/26/19 12:50 Sulfa (Sulfonamide Allergy ALGY-Hives Verified 04/26/19 12:50 Antibiotics) tegaserod [From Zelnorm] Allergy ALGY-Hives Verified 04/26/19 12:50 tetracycline Allergy ALGY-Hives Verified 04/26/19 12:50 tetrahydrozoline Allergy ADR-Swelling Verified 04/26/19 12:50 [From Visine] of the Eye PFSH Acute PFSH: Medical History Atrial fibrillation Chronic anemia Chronic kidney disease, stage III (moderate) Crohn's disease Hypersomnia Hypokalemia Local infection due to Port-A-Cath Myocardial infarction (lateral wall) Systolic congestive heart failure Surgical History H/O ileostomy H/O total colectomy History of delivery x4 Hx of appendectomy Port-A-Cath in place Family History Other CAD (coronary artery disease) Cancer Congestive heart failure Diabetes Hyperlipidemia Social History Smoking and tobacco status: never smoked Alcohol intake: never Marital status: Vitals/I&O/Wt Last Vital Signs Temp 97.6 F 05/02/19 07:21 Pulse 95 05/02/19 08:30 Resp 18 05/02/19 08:30 BP 81/44 05/02/19 08:30 Pulse Ox 95 05/02/19 08:30 Weight last 48 hrs Weight 31.751 kg Physical Exam Const: COMMON NORMALS: oriented x3 and alert GENERAL APPEARANCE: frail appearing NUTRITIONAL APPEARANCE: cachectic ORIENTATION/CONSCIOUSNESS: Yes awake, Yes oriented to person, Yes oriented to place and Yes oriented to time HENMT: COMMON NORMALS: normocephalic and head/scalp atraumatic HEAD & SCALP: normocephalic and atraumatic OTHER: Temporal wasting with dry mucous membranes Eye: COMMON NORMALS: PERRL PUPIL: Yes PERRL Neck/C-Spine: COMMON NORMALS: supple GENERAL: Yes normal visual inspection Resp: COMMON NORMALS: normal respiratory effort and clear to auscultation bilaterally EFFORT & INSPECTION: Yes able to speak in complete sentences AUSCULTATION: clear to auscultation bilaterally, no rhonchi and no wheezes Cardio: COMMON NORMALS: regular rate, regular rhythm and no murmurs RATE: regular rate RHYTHM: regular rhythm GI: INSPECTION: Yes abdominal distension OTHER: Ostomy in place with minimal output, normal bowel sounds, no tenderness to palpation over the anterior abdomen, no guarding or rigidity : COMMON NORMALS: Yes no CVA tenderness BLADDER/KIDNEY EXAM: Yes no CVA tenderness Back/Pelvis: COMMON NORMALS: no CVA tenderness Extremity: NARRATIVE EXTREMITY EXAM: Thin lower extremities with muscle wasting bilaterally in the upper and lower extremities, no cyanosis or edema Neuro: COMMON NORMALS: oriented x3, CN's II-XII intact bilaterally, moves all extremities and no focal motor deficits SENSORIUM/ORIENTATION: Yes alert, Yes oriented to person, Yes oriented to place and Yes oriented to time SPEECH: speech normal OTHER: Muscle tremors in the upper and lower extremities, mildly hyperreflexic Psych: COMMON NORMALS: mental status grossly normal and cooperative Skin: COMMON NORMALS: no rashes or lesions noted OTHER: Stage III sacral ulcer, small opening in the central ulcer with no appreciable drainage, no palpable abscess or fluid collection Data : 05/02/19 08:05 05/02/19 11:44 A&P Assessment and plan (1) Acute renal failure: Nephrology consulted. Appreciate recommendations and assistance in patient's care Continue to hold nephrotoxic agents. Patient reports that she has not been taking any of her medications at home for the past 1 week. She states history of chronic kidney disease, however baseline creatinine of 1.2. Patient given IV fluids in the emergency department as well as calcium gluconate, bicarb and insulin and D50. We will follow-up with nephrology recommendations. Patient will likely require dialysis. Repeat CMP ordered at this time and will need serial BMPs. Strict intake and output as well as daily weight Continue with IV fluids. Caution and monitor fluid status closely due to patient with reported history of systolic congestive heart failure and on discharge summary from long-term acute [facility]. Status: Acute Code(s): N17.9 - Acute kidney failure, unspecified (2) Chronic anemia: Chronic anemia, hemoglobin appears to be at baseline, no evidence of any active bleeding Status: Acute Code(s): D64.9 - Anemia, unspecified (3) Chronic kidney disease, stage III (moderate): With acute on chronic renal failure as above Status: Acute Code(s): N18.3 - Chronic kidney disease, stage 3 (moderate) (4) Crohn's disease: Crohn's disease status post colectomy with ostomy in place, reported decreased output over the past couple of days. Chronic high output from ostomy Status: Acute Code(s): K50.90 - Crohn's disease, unspecified, without complications (5) Severe protein-calorie malnutrition: Previously on TPN and transferred to an outside facility. Decreased oral intake over the past 2 days Status: Acute Code(s): E43 - Unspecified severe protein-calorie malnutrition (6) Pressure ulcer of sacral region, unspecified stage: Stage III pressure ulcer on the sacrum. Followed by wound care. No evidence of any acute infection at this time Status: Acute Code(s): L89.159 - Pressure ulcer of sacral region, unspecified stage (7) Systolic congestive heart failure: Reported history of systolic congestive heart failure on discharge summary from outside facility from 2 weeks ago. Repeat echocardiogram ordered for evaluation. Patient dehydrated at this time with plan for IV fluids as above. We will continue to monitor fluid status closely with strict intake and output as well as daily weights. Status: Acute Code(s): I50.20 - Unspecified systolic (congestive) heart failure (8) Ventricular tachyarrhythmia: Episode of nonsustained V. tach in the emergency department. Patient reports episode of palpitations at home over the past couple of weeks that have been increasing in frequency. Based on discharge summary from [facility] patient was diagnosed with systolic CHF. Will obtain echocardiogram. Patient also with severe electrolyte changes and acute renal failure as noted above which could be contributing to this. Will need ICU monitoring and close monitoring of electrolytes. Consider cardiology consultation if indicated. Status: Acute Code(s): I47.2 - Ventricular tachycardia Additional A&P Information Underweight with a BMI of 12.8, dietary consultation Recent treatment for bacteremia, had received 4 weeks of IV vancomycin, completed course in early April. Repeat blood cultures ordered for evaluation. Had Port-A-Cath removal due to this concern. New port placement last week by general surgeon. Severely malnourished: Previously on TPN at an outside facility for wound healing Leukocytosis: Reports occasional cough over the past couple of days: Flu swab collected and pending Chronic hypotension: We will continue to monitor blood pressure closely and continue IV fluids as noted above DVT prophylaxis: SCDs, no pharmacologic prophylaxis due to concern for anemia Diet: Clear liquids, renal CODE STATUS: Full code, discussed with patient and her at bedside Attestations Medical Necessity Statement*: Patient requires hospitalization due to acute renal failure with hyperkalemia and nonsustained ventricular tachycardia. 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
[2019-05-02] MEDS: sodium bicarbonate 8.4% 1 mEq/mL 50mL Syr 50 MEQ IVP (11:47)
[2019-05-02 12:06] LABS: Alanine Aminotransferase 7 U/L (0-33); Alkaline Phosphatase 118 IU/L (35-105); Anion Gap 33.9 (5-19); Aspartate Amino Transferase 11 U/L (0-32); Calcium 9.5 mg/dL (8.5-10.5); Carbon Dioxide 22 mmol/L (22-29); Chloride 75 mmol/L (98-107); Creatinine Clr Calc Pharmacy 1.5902; Globulin 3.4 g/dL (1.3-4.6); Glomerular Filtration Rate 2.2 mL/min (90-130); Glucose 117 mg/dL (65-115); Potassium 5.9 mmol/L (3.5-5.1); Sodium 125 mmol/L (136-145); Total Bilirubin 0.2 mg/dL (0.15-1.2); Total Protein 7.4 g/dL (6.6-8.7)
[2019-05-02 12:14] LABS: Blood Urea Nitrogen 134 mg/dL (8-23)
--- NOTE | 2019-05-02 13:13 | P.CONIM_ITS ---
Providers/Reason For Consult Consulting Physican/Specialty*: Dr Siddiqui Reason for Consult*: Eval for Renal Failure Requesting Physcian: Dr Cody Primary Care Provider: Bina Yanes MD History of Present Illness History of Present Illness Janene Gallegos is a 69 year old female who came in with weakness and twitching over the last few days duration increasing in intensity. She reports very little urine output. She has an ostomy and reports that if she eats and drinks then it runs right through her. She was on Lasix and Lisinopril a few weeks ago but not recently. She was on Vanco a few weeks ago for a sacral bone infection. Creatinine was stable ~1-1.6 earlier in the month of Apr. She has overt asterixes when checked although at rest she does not have overt myoclonus. No edema and no other volume Sx. No other uremic Sx. She denies other nephrotox exposures. She history of needing dialysis. Admission creatinine 17.6 coming down to 16.5 after ivf. K was 6.6 and now came down to 5.9 after ivf. Bp low on admission Review of Systems Const: Reports: change in appetite, fatigue and malaise ENMT: Denies: throat pain or uvular edema Resp: Denies: shortness of breath or productive cough GI: Reports: nausea; Denies: vomiting Meds/Allergies Home Medications and Allergies Home Medications Medication Instructions Recorded Confirmed Type melatonin 3 mg PO BEDTIME PRN 03/01/19 05/02/19 History nitroglycerin 0.4 mg SUBLINGUAL Q5M PRN 03/01/19 05/02/19 History promethazine 25 mg PO QID PRN 03/01/19 05/02/19 History tramadol [Ultram] 50 mg PO Q6H PRN 03/01/19 05/02/19 History gabapentin 300 mg PO BID 04/26/19 05/02/19 History MediHoney (honey) See Rx Instructions .ROUTE .COMPLEX 05/02/19 05/02/19 History [id number] 1 cap PO DAILY 05/02/19 05/02/19 History aspirin [Aspir-81] 81 mg PO DAILY 05/02/19 05/02/19 History atorvastatin [Lipitor] 20 mg PO BEDTIME 05/02/19 05/02/19 History carvedilol 3.125 mg PO BID 05/02/19 05/02/19 History famotidine 20 mg PO DAILY 05/02/19 05/02/19 History furosemide [Lasix] 40 mg PO QAM 05/02/19 05/02/19 History lisinopril 2.5 mg PO DAILY 05/02/19 05/02/19 History ondansetron HCl [Zofran] 8 mg PO TID PRN 05/02/19 05/02/19 History phenazopyridine 97.5 mg PO PRN 05/02/19 05/02/19 History potassium chloride 20 meq PO QAM 05/02/19 05/02/19 History venlafaxine [Effexor XR] 37.5 mg PO BEDTIME 05/02/19 05/02/19 History Allergies Allergy/AdvReac Type Severity Reaction Status Date / Time amoxicillin Allergy ALGY-Hives Verified 04/26/19 12:50 cefazolin [From Ancef] Allergy ALGY-Rash Verified 04/26/19 12:50 cephalexin [From Keflex] Allergy ALGY-Rash Verified 04/26/19 12:50 codeine Allergy ALGY-Hives Verified 04/26/19 12:50 doxycycline Allergy ALGY-Hives Verified 04/26/19 12:50 erythromycin base Allergy ALGY-Hives Verified 04/26/19 12:50 [From E.E.S.] hydrocodone [From [place]] Allergy Unknown Verified 04/26/19 12:50 latex Allergy Unknown Verified 04/26/19 12:50 metoclopramide Allergy Unknown Verified 04/26/19 12:50 neomycin Allergy ALGY-Hives Verified 04/26/19 12:50 Penicillins Allergy ALGY-Hives Verified 04/26/19 12:50 polyethylene glycol Allergy ADR-Swelling Verified 04/26/19 12:50 of the Eye pregabalin [From Lyrica] Allergy ALGY-Swell Verified 04/26/19 12:50 Lip/Tongue/Throat prochlorperazine Allergy ALGY-Hives Verified 04/26/19 12:50 [From Compazine] propoxyphene [From Darvon] Allergy ALGY-Hives Verified 04/26/19 12:50 sapropterin Allergy ADR-Swelling Verified 04/26/19 12:50 [From Tetrahydrobiopterin of the Eye Di-HCL] scopolamine Allergy ALGY-Hives Verified 04/26/19 12:50 Sulfa (Sulfonamide Allergy ALGY-Hives Verified 04/26/19 12:50 Antibiotics) tegaserod [From Zelnorm] Allergy ALGY-Hives Verified 04/26/19 12:50 tetracycline Allergy ALGY-Hives Verified 04/26/19 12:50 tetrahydrozoline Allergy ADR-Swelling Verified 04/26/19 12:50 [From Visine] of the Eye PFSH Acute PFSH: Medical History Atrial fibrillation Chronic anemia Chronic kidney disease, stage III (moderate) Crohn's disease Hypersomnia Hypokalemia Local infection due to Port-A-Cath Myocardial infarction (lateral wall) Systolic congestive heart failure Surgical History H/O ileostomy H/O total colectomy History of delivery x4 Hx of appendectomy Port-A-Cath in place Family History Other CAD (coronary artery disease) Cancer Congestive heart failure Diabetes Hyperlipidemia Social History Smoking and tobacco status: never smoked Alcohol intake: never Marital status: Vitals/I&O/Wt Last Vital Signs Temp 97.6 F 05/02/19 07:21 Pulse 95 05/02/19 08:30 Resp 18 05/02/19 08:30 BP 81/44 05/02/19 08:30 Pulse Ox 95 05/02/19 08:30 05/01/19 05/02/19 05/02/19 22:59 06:59 14:59 Intake Total 570 / 570 Balance 570 / 570 Weight last 48 hrs Weight 31.751 kg Physical Exam Const: COMMON NORMALS: oriented x3 GENERAL APPEARANCE: lethargic and frail appearing ORIENTATION/CONSCIOUSNESS: Yes lethargic HENMT: COMMON NORMALS: normocephalic HEAD & SCALP: normocephalic THROAT: no uvular edema Eye: GENERAL EYE: normal appearance of both eyes Neck/C-Spine: COMMON NORMALS: no JVD Chest: COMMONS NORMALS: inspection of chest normal and palpation of chest normal Resp: COMMON NORMALS: normal respiratory effort EFFORT & INSPECTION: Yes able to speak in complete sentences Cardio: COMMON NORMALS: no JVD and regular rate RATE: regular rate GI: COMMON NORMALS: normal to inspection, nondistended, normoactive bowel so unds Neuro: COMMON NORMALS: oriented x3 SENSORIUM/ORIENTATION: Yes lethargic Data Micro: Micro: Microbiology 05/02/19 12:20 Blood Culture - Pr eliminary Blood SPECIMEN [facility] 05/02/19 08:05 Blood Culture - Pr eliminary Blood SPECIMEN [facility] A&P Additional A&P Information 1. Renal failure - I am hopeful that we are dealing with predominantly pre-renal azotemia, possibly some element of ischemic ATN from renal hypoperfusion from severe intravasc volume depletion from her poor oral intake, unable to keep up with her ostomy output. - Creatinine is starting to come down - I am concerned about her asterixes; as her creatinine is coming down with supportive care we can afford to give her some time to see if she recovers function prior to dialyzing her - will send limited serology today inc urine sodium and creatinine and protein quantification - TSH ok - imaging ok - will send CPK - avoid the usuals - cont aggressive ivf; will give NS at 150ml/hr - if renal function doesn't improve with supportive care will send broader serology and consider a renal biopsy 2. 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
[2019-05-02 14:08] LABS: Creatine Phosphokinase 25 U/L (26-192); Vancomycin Random 17.8 ug/mL (20.0-40.0)
[2019-05-02 14:24] LABS: Acetaminophen < 5.0 ug/mL (10-30); Salicylate < 0.3 mg/dL (3-10)
[2019-05-02] MEDS: sodium chloride 0.9% 1,000 ML 150 ML IV ×2 (14:45→23:00)
--- NOTE | 2019-05-02 15:06 | PC.NURSE ---
Patient noted to have short run of V-Tach at this time, patient was asymptomatic with exception of low blood pressure. Patient returned to regular noted rhythm. Rhythm strip printed off and shown to ED physician. Crash cart placed in room and patient placed on Zoll pads & monitor.
[2019-05-02 15:18] LABS: Influenza A by IFA Negative (Negative); Influenza B by IFA Negative (Negative)
--- NOTE | 2019-05-02 15:23 | PC.NURSE ---
applied patient's daily dressing to her stage 2 pressure ulcer on the sacral area at this time.
[2019-05-02 15:26] LABS: Urine Creatinine 58 mg/dL (28-217); Urine Random Sodium 56 mmol/L
[2019-05-02 15:28] LABS: Urine Protein Random 21 mg/dL
[2019-05-02 17:27] LABS: ABG PCO2 39.1 mmHg (35-45); ABG PH Result 7.39 (7.35-7.45); Arterial Blood Gas Hematocrit 27.8 % (37-47); Base Excess ABG -1.2 mmol/L (-2.0-2.0); Blood Gas Allen Test Pos; Blood Gas Sample Site Brachial, right; Blood Gas Sample Type Arterial; HCO3 ABG 23.6 mmol/L (22-26); Oxygen Device ROOM AIR; PO2 ABG 90.8 mmHg (80.0-100.0)
[2019-05-02 20:08] LABS: Bilirubin Urine Neg (NEGATIVE); Blood Urine Neg (Negative); Glucose Urine UA Norm (Normal); Ketones Urine Negative (Negative); Leukocyte Esterase Urine Negative (Negative); Nitrate Urine Negative (Negative); Protein Urine Neg (Negative); Sulfosalicylic Acid Urine Negative; Urine Appearance Clear (CLEAR); Urine Color Yellow (Yellow); Urobilinogen Urine Norm (Negative); pH Urine 8 (5-7)
[2019-05-02 20:09] LABS: Add Urine Culture? No; Bacteria Urine TRACE; Squamous Epithelial Cell Urine RARE (0-5); WBC Urine RARE /hpf (0-5)
[2019-05-02 20:34] LABS: INR 1.05 (0.8-1.2)
[2019-05-02 20:38] LABS: Anion Gap 29.7 (5-19); Calcium 9.3 mg/dL (8.5-10.5); Carbon Dioxide 22 mmol/L (22-29); Chloride 80 mmol/L (98-107); Glomerular Filtration Rate 2.6 mL/min (90-130); Glucose 122 mg/dL (65-115); Osmolality Calculated 269 mOsm/kg (285-295); Potassium 3.7 mmol/L (3.5-5.1); Sodium 128 mmol/L (136-145)
[2019-05-02] MEDS: TRAMadol 50 mg Tablet PO (20:39)
[2019-05-02 21:32] LABS: Blood Urea Nitrogen 112 mg/dL (8-23)
[2019-05-02] MEDS: acetaminophen 325 mg Tablet 650 MG PO (22:57)
[2019-05-02 23:51] LABS: Calcium 8.7 mg/dL (8.5-10.5); Carbon Dioxide 21 mmol/L (22-29); Chloride 85 mmol/L (98-107); Glomerular Filtration Rate 3.3 mL/min (90-130); Glucose 145 mg/dL (65-115); Osmolality Calculated 273 mOsm/kg (285-295); Sodium 130 mmol/L (136-145)
[2019-05-03] VITALS (64 sets, daily range): BP systolic 80–117; BP diastolic 35–64; PULSE 81–115; RESP 7–46; TEMP 36.6–36.9; O2SAT 77–100
[2019-05-03 00:37] LABS: Blood Urea Nitrogen 88 mg/dL (8-23)
[2019-05-03 04:20] LABS: Basophils % 0.5 %; Eosinophils # 0.7 10^3/uL (0.0-0.8); Eosinophils % 8.9 %; Hematocrit 25.2 % (37.0-47.0); Hemoglobin 7.8 g/dL (11.5-15.3); Lymphocytes # 1.2 10^3/uL (0.8-4.8); Lymphocytes % 14.5 %; Mean Platelet Volume 11.7 fL (7.4-10.4); Monocytes # 0.9 10^3/uL (0.2-0.9); Monocytes % 11.1 %; Neutrophils # 5.2 10^3/uL (1.8-7.7); Neutrophils % 64.7 %; Nucleated Red Blood Cells % 0 %; Platelet Count 230 10^3/cmm (130-400); Red Cell Distribution Width 16.6 % (12.1-15.1)
[2019-05-03 04:46] LABS: Alanine Aminotransferase 6 U/L (0-33); Albumin Level 3.3 g/dL (3.5-5.2); Alkaline Phosphatase 87 IU/L (35-105); Anion Gap 26.8 (5-19); Aspartate Amino Transferase 13 U/L (0-32); Blood Urea Nitrogen 77 mg/dL (8-23); Calcium 8.7 mg/dL (8.5-10.5); Carbon Dioxide 19 mmol/L (22-29); Chloride 88 mmol/L (98-107); Globulin 3.3 g/dL (1.3-4.6); Glomerular Filtration Rate 3.6 mL/min (90-130); Glucose 136 mg/dL (65-115); Magnesium 1.6 mg/dL (1.7-2.3); Potassium 3.8 mmol/L (3.5-5.1); Sodium 130 mmol/L (136-145); Total Bilirubin 0.3 mg/dL (0.15-1.2); Total Protein 6.6 g/dL (6.6-8.7)
[2019-05-03 04:51] LABS: Phosphorus 10.2 mg/dL (2.5-4.5)
[2019-05-03] MEDS: sodium chloride 0.9% 1,000 ML 150 ML IV ×3 (05:54→20:01)
--- NOTE | 2019-05-03 07:36 | PC.NURSE ---
Large liq amt from ostomy in bed. clamp had come loose.
[2019-05-03] MEDS: aspirin 81 mg EC Tablet PO (08:15)
[2019-05-03] MEDS: TRAMadol 50 mg Tablet PO ×2 (09:30→20:13)
[2019-05-03] MEDS: promethazine 25 mg Tablet PO ×2 (09:30→20:14)
--- NOTE | 2019-05-03 09:49 | PC.CHAP ---
Pastoral Care Encounter/Spiritual Assessment Type of Contact [] Declined molded goods inspector trimmer visit [] Patient/Family/Request visit [] Outpatient visit [] Follow-up visit [] Physician referral [] Code/Alert [x] Routine visit [] Staff referral [] Actively dying [] Patient sleeping [x] Family support [] [] Out of room [] Palliative care [] [] Receiving care in room [] Pre-surgical visit [] Trauma [] Long length of stay [x] ICU visit [] Other: Relational/Emotional Strength [] Patient feels connected with others/family/visitors/staff [] Distress [] Loneliness/isolation [] Abandonment Spirituality of Patient [] Person of Winter [] Attends Restorationist of their Winter [] Believes in Prayer [] Reads Bible or Taoism materials [] There are Spiritual issues to be addressed [place] Interventions [] Prayer [] Active listening [] Non-anxious presence [] Spiritual/emotional support [] Crisis/trauma care [] Spiritual counseling [] Bereavement support [] Provided bereavement packet [] Provided Bible/devotional materials [] Provided toy/stuffed animal, coloring book to patient or family member [] Provided Communion [] Anointing/[place] [] Salvation [x] Completed spiritual assessment [] Other: Impact on Illness or Injury [] Angry [] Fearful [] Anxious [] Often cries [] Exhaustion [] Unable to work [] Unable to attend scientology [] Unable to walk/stand [] Unable to read [] Unable to drive [] Unable to eat/drink [] Unable to sleep [] Unable to be with family [] Patient intubated [] Other: Summary patient feeling stronger. Hadnt slept for a few days, but got some rest last night. Time spent with patient [id number]
--- NOTE | 2019-05-03 10:09 | PM.PN ---
Subjective Subjective: Interval history: Feels much better today. Getting stronger, myoclonic twitching has resolved. UO increasing, no other uremic Sx. No edema, ie tolerating ivf comfortably. Ostomy output ok, feels hungry and wants to eat Vitals/I&O/Wt Last Vital Signs Temp 97.8 F 05/03/19 04:00 Pulse 90 05/03/19 08:50 Resp 17 05/03/19 08:50 BP 89/41 05/03/19 08:50 Pulse Ox 97 05/03/19 08:50 05/02/19 05/03/19 05/03/19 22:59 06:59 14:59 Intake Total 1100 / 2751.2 1370 / 4121.2 480 / 480 Output Total 400 / 400 1850 / 2250 150 / 150 Balance 700 / 2351.2 -480 / 1871.2 330 / 330 Weight last 48 hrs Weight 34.609 kg Weight 31.751 kg Physical Exam Const: COMMON NORMALS: oriented x3 GENERAL APPEARANCE: lethargic and frail appearing ORIENTATION/CONSCIOUSNESS: Yes lethargic HENMT: COMMON NORMALS: normocephalic HEAD & SCALP: normocephalic THROAT: no uvular edema Eye: GENERAL EYE: normal appearance of both eyes Neck/C-Spine: COMMON NORMALS: no JVD Chest: COMMONS NORMALS: inspection of chest normal and palpation of chest normal Resp: COMMON NORMALS: normal respiratory effort EFFORT & INSPECTION: Yes able to speak in complete sentences Cardio: COMMON NORMALS: no JVD and regular rate RATE: regular rate GI: COMMON NORMALS: normal to inspection, nondistended, normoactive bowel sounds Neuro: COMMON NORMALS: oriented x3 SENSORIUM/ORIENTATION: Yes lethargic Data : 05/03/19 03:59 05/03/19 03:59 Micro: Microbiology 05/02/19 12:20 Blood Culture - Preliminary Blood SPECIMEN COLLECTED 05/02/19 08:05 Blood Culture - Preliminary Blood SPECIMEN COLLECTED A&P Additional A&P Information 1. Renal failure - We are dealing with predominantly pre-renal azotemia, possibly some element of ischemic ATN from renal hypoperfusion from severe intravasc volume depletion from her poor oral intake, unable to keep up with her ostomy output. - She receives iv MG and KCl weekly in the infusion clinic; message left for Dr Veda Gilman's team to call me regarding giving her ivf weekly ie LR 1L over 4hrs weekly (tel [phone]) - avoid the usuals - cont aggressive ivf; will give NS at 100ml/hr 2. Hemodynamics - Bp low due to IVVD 3. 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
--- NOTE | 2019-05-03 14:58 | PC.NURSE ---
new ostomy bag placed at pt. request d/t itching under wafer. reddened. states it was something she ate
--- NOTE | 2019-05-03 15:54 | P.PN_ITS ---
Subjective Subjective: Interval history: Patient awake in bed at time of exam this morning. She reported feeling better today. Reported increased appetite and wanting regular diet. Patient denied any abdominal pain. Reported improved output from ostomy. She denied any chest pain or shortness of breath. Improved tremor Vitals/I&O/Wt Last Vital Signs Temp 97.8 F 05/03/19 04:00 Pulse 102 H 05/03/19 14:00 Resp 18 05/03/19 14:00 BP 87/57 05/03/19 14:00 Pulse Ox 62 L 05/03/19 12:00 05/03/19 05/03/19 05/03/19 06:59 14:59 22:59 Intake Total 1370 / 4121.2 1960 / 1960 Output Total 1850 / 2250 1050 / 1050 Balance -480 / 1871.2 910 / 910 Weight last 48 hrs Weight 34.609 kg Weight 31.751 kg Physical Exam Const: COMMON NORMALS: oriented x3 and alert GENERAL APPEARANCE: frail appearing NUTRITIONAL APPEARANCE: cachectic ORIENTATION/CONSCIOUSNESS: Yes awake, Yes oriented to person, Yes oriented to place and Yes oriented to time HENMT: COMMON NORMALS: normocephalic and head/scalp atraumatic HEAD & SCALP: normocephalic and atraumatic OTHER: Temporal wasting Eye: COMMON NORMALS: PERRL PUPIL: Yes PERRL Neck/C-Spine: COMMON NORMALS: supple GENERAL: Yes normal visual inspection Resp: COMMON NORMALS: normal respiratory effort and clear to auscultation bilaterally EFFORT & INSPECTION: Yes able to speak in complete sentences AUSCULTATION: clear to auscultation bilaterally, no rhonchi and no wheezes Cardio: COMMON NORMALS: regular rate, regular rhythm and no murmurs RATE: regular rate RHYTHM: regular rhythm GI: INSPECTION: Yes abdominal distension OTHER: Ostomy in place, abdomen flat, nontender : COMMON NORMALS: Yes no CVA tenderness BLADDER/KIDNEY EXAM: Yes no CVA tenderness Back/Pelvis: COMMON NORMALS: no CVA tenderness Extremity: NARRATIVE EXTREMITY EXAM: Thin lower extremities with muscle wasting bilaterally in the upper and lower extremities, no cyanosis or edema Neuro: COMMON NORMALS: oriented x3, CN's II-XII intact bilaterally, moves all extremities and no focal motor deficits SENSORIUM/ORIENTATION: Yes alert, Yes oriented to person, Yes oriented to place and Yes oriented to time SPEECH: speech normal OTHER: Muscle tremor resolved Psych: COMMON NORMALS: mental status grossly normal and cooperative Skin: COMMON NORMALS: no rashes or lesions noted GENERAL SKIN EXAM: no rashes or lesions noted OTHER: Stage III sacral ulcer, small opening in the central ulcer with no appreciable drainage, no palpable abscess or fluid collection Data : 05/03/19 03:59 05/03/19 03:59 Micro: Microbiology 05/02/19 12:20 Blood Culture - Preliminary Blood NEGATIVE TO DATE 05/02/19 08:05 Blood Culture - Preliminary Blood NEGATIVE TO DATE A&P Assessment and plan (1) Acute renal failure: Nephrology consulted. Appreciate recommendations and assistance in zehra ko's care Continue to hold nephrotoxic agents. Concern for severe dehydration and high output from her ostomy that contributed to her acute renal failure Potassium improved and BUN and creatinine continue to improve, phosphorus continues to improve. We will recheck all and continue with IV fluids. Status: Acute Code(s): N17.9 - Acute kidney failure, unspecified (2) Chronic anemia: Chronic anemia Hemoglobin at 7.8 today, no evidence of any active bleeding, likely decreased due to IV fluid administration. Will transfuse if hemoglobin drops less than 7. Status: Acute Code(s): D64.9 - Anemia, unspecified (3) Chronic kidney disease, stage III (moderate): With acute on chronic renal failure as above Status: Acute Code(s): N18.3 - Chronic kidney disease, stage 3 (moderate) (4) Crohn's disease: Crohn's disease status post colectomy with ostomy in place. Chronic high output from ostomy, due to this patient is on chronic potassium and magnesium infusions weekly, recommendation from nephrology has been that patient receive IV fluids at time of her infusions. Status: Acute Code(s): K50.90 - Crohn's disease, unspecified, without complications (5) Severe protein-calorie malnutrition: Restart regular diet Status: Acute Code(s): E43 - Unspecified severe protein-calorie malnutrition (6) Pressure ulcer of sacral region, unspecified stage: Stage III pressure ulcer on the sacrum. Followed by wound care. No evidence of any acute infection at this time Status: Acute Code(s): L89.159 - Pressure ulcer of sacral region, unspecified stage (7) Systolic congestive heart failure: Reported systolic CHF with an ejection fraction of 30% from outside facility. Echocardiogram ordered and remains pending. Continues to require IV fluids as above. We will continue to monitor respiratory status closely Status: Acute Code(s): I50.20 - Unspecified systolic (congestive) heart failure (8) Ventricular tachyarrhythmia: Intermittent episodes of nonsustained ventricular tachycardia. Continue close monitoring on telemetry. Likely will improve with improvement of electrolytes and renal function as above. Consider cardiology consultation if indicated. Holding off on further medications due to soft blood pressures. Status: Acute Code(s): I47.2 - Ventricular tachycardia Additional A&P Information Underweight with a BMI of 12.8, dietary consultation Recent treatment for bacteremia, had received 4 weeks of IV vancomycin, completed course in early April. Repeat blood cultures ordered for evaluation. Had Port-A-Cath removal due to this concern. New port placement last week by general surgeon. Severely malnourished: Previously on TPN at an outside facility for wound healing Leukocytosis: Reports occasional cough over the past couple of days: Flu swab negative. This was likely stress reaction as this has resolved Chronic hypotension: We will continue to monitor blood pressure closely and continue IV fluids as noted above DVT prophylaxis: SCDs, no pharmacologic prophylaxis due to concern for anemia Diet: Nondialysis renal diet CODE STATUS: Full code, discussed with patient and her at bedside Attestations Medical Necessity Statement*: Patient requires further ICU monitoring due to acute renal failure with episodes of nonsustained ventricular tachycardia. Coding Level of Care Code Acute Pole Setter for [facility] Fwd Diagnoses Acute renal failure N17.9 Chronic anemia D64.9 Chronic kidney disease, stage III (moderate) N18.3 Crohn's disease K50.90 Severe protein-calorie malnutrition E43 Pressure ulcer of sacral region, unspecified stage L89.159 Systolic congestive heart failure I50.20 Ventricular tachyarrhythmia I47.2
[2019-05-03 16:16] LABS: Osmolality Serum 311 mOsm/kg (278-305)
--- NOTE | 2019-05-03 19:43 | PC.NURSE ---
vital sign readings are correct except at different time.
[2019-05-04] VITALS (11 sets, daily range): BP systolic 92–125; BP diastolic 47–75; PULSE 81–109; RESP 12–18; TEMP 36.6–37.5; O2SAT 93–100
[2019-05-04] MEDS: sodium chloride 0.9% 1,000 ML 150 ML IV ×2 (02:11→08:37)
[2019-05-04 05:11] LABS: Basophils # 0.1 10^3/uL (0.0-0.1); Basophils % 0.7 %; Eosinophils # 1.1 10^3/uL (0.0-0.8); Hematocrit 24.8 % (37.0-47.0); Hemoglobin 7.4 g/dL (11.5-15.3); Lymphocytes # 0.9 10^3/uL (0.8-4.8); Lymphocytes % 11.2 %; Mean Corpuscular HGB Conc 29.8 g/dL (30.0-36.0); Mean Corpuscular Hemoglobin 27.1 pg (28.0-34.0); Mean Corpuscular Volume 90.8 fL (81-99); Mean Platelet Volume 12.1 fL (7.4-10.4); Monocytes # 0.9 10^3/uL (0.2-0.9); Monocytes % 11.2 %; Neutrophils # 5.2 10^3/uL (1.8-7.7); Neutrophils % 63.5 %; Nucleated Red Blood Cells % 0 %; Platelet Count 203 10^3/cmm (130-400); Red Blood Count 2.73 10^6/uL (4.1-5.3); Red Cell Distribution Width 16.3 % (12.1-15.1); White Blood Count 8.2 10^3/uL (4.0-10.0)
[2019-05-04 05:31] LABS: Alanine Aminotransferase 6 U/L (0-33); Albumin Level 3.3 g/dL (3.5-5.2); Alkaline Phosphatase 89 IU/L (35-105); Anion Gap 18.5 (5-19); Aspartate Amino Transferase 15 U/L (0-32); Blood Urea Nitrogen 50 mg/dL (8-23); Calcium 8.6 mg/dL (8.5-10.5); Carbon Dioxide 19 mmol/L (22-29); Chloride 103 mmol/L (98-107); Glomerular Filtration Rate 7.1 mL/min (90-130); Glucose 100 mg/dL (65-115); Magnesium 1.3 mg/dL (1.7-2.3); Phosphorus 6.1 mg/dL (2.5-4.5); Potassium 3.5 mmol/L (3.5-5.1); Sodium 137 mmol/L (136-145); Total Bilirubin 0.3 mg/dL (0.15-1.2); Total Protein 6.3 g/dL (6.6-8.7)
[2019-05-04] MEDS: aspirin 81 mg EC Tablet PO (08:37)
[2019-05-04] MEDS: acetaminophen 325 mg Tablet 650 MG PO ×2 (08:39→19:53)
[2019-05-04] MEDS: promethazine 25 mg Tablet PO ×2 (08:39→19:54)
--- NOTE | 2019-05-04 10:37 | PM.PN ---
Subjective Subjective: Interval history: Feels much better today. Getting stronger, myoclonic twitching has resolved. UO increasing, no other uremic Sx. No edema, ie tolerating ivf comfortably. Ostomy output ok, feels hungry and wants to eat. Generally doing well, improving nicely at this time Vitals/I&O/Wt Last Vital Signs Temp 97.8 F 05/04/19 06:00 Pulse 90 05/04/19 08:27 Resp 14 05/04/19 08:00 BP 100/47 05/04/19 08:00 Pulse Ox 93 05/04/19 08:27 05/03/19 05/04/19 05/04/19 22:59 06:59 14:59 Intake Total 1240 / 3200 975 / 4175 1205 / 1205 Output Total 1525 / 2575 975 / 3550 200 / 200 Balance -285 / 625 0 / 625 1005 / 1005 Weight last 48 hrs Weight 36.423 kg Weight 34.609 kg Physical Exam Const: COMMON NORMALS: oriented x3 GENERAL APPEARANCE: lethargic and frail appearing ORIENTATION/CONSCIOUSNESS: Yes lethargic HENMT: COMMON NORMALS: normocephalic HEAD & SCALP: normocephalic THROAT: no uvular edema Eye: GENERAL EYE: normal appearance of both eyes Neck/C-Spine: COMMON NORMALS: no JVD Chest: COMMONS NORMALS: inspection of chest normal and palpation of chest normal Resp: COMMON NORMALS: normal respiratory effort EFFORT & INSPECTION: Yes able to speak in complete sentences Cardio: COMMON NORMALS: no JVD and regular rate RATE: regular rate GI: COMMON NORMALS: normal to inspection, nondistended, normoactive bowel sounds Neuro: COMMON NORMALS: oriented x3 SENSORIUM/ORIENTATION: Yes lethargic Data : 05/04/19 04:15 05/04/19 04:15 Micro: Microbiology 05/02/19 12:20 Blood Culture - Preliminary Blood NEGATIVE TO DATE 05/02/19 08:05 Blood Culture - Preliminary Blood NEGATIVE TO DATE A&P Additional A&P Information 1. Renal failure - We are dealing with predominantly pre-renal azotemia, possibly some element of ischemic ATN from renal hypoperfusion from severe intravasc volume depletion from her poor oral intake, unable to keep up with her ostomy output. - She receives iv MG and KCl weekly in the infusion clinic; yesterday I left a message left for Dr Veda Gilman's team to call me regarding giving her ivf weekly ie LR 1L over 4hrs weekly (tel [phone]), call placed again today - avoid the usuals - oral intake is encouraged - ok to DC ivf if she has a good oral intake 2. Hemodynamics - Bp low due to IVVD 3. Lytes - non critical aberrances of Na/Mg/phos etc - magnesium replacement requested 4. 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
[2019-05-04 11:28] LABS: Iron 126 ug/dL (37-145); Percent Saturation 58.3 % (20-50); Total Iron Binding Capacity 216 mcg/dl; Unsaturated Iron Binding 90 ug/dL (112-347)
[2019-05-04] MEDS: magnesium sulfate premix 2 GM/50 ML PIGGYBACK IV (11:50)
[2019-05-04] MEDS: sodium chloride 0.9% 1,000 ML 30 ML IV (13:11)
--- NOTE | 2019-05-04 14:31 | P.PN_ITS ---
Subjective Subjective: Interval history: Patient awake and sitting in chair at bedside during exam this morning. She denied any chest pain or palpitations. Denied any abdominal pain or nausea. Reported she was tolerating renal diet well and asking for regular diet. Vitals/I&O/Wt Last Vital Signs Temp 97.8 F 05/04/19 06:00 Pulse 97 05/04/19 12:00 Resp 18 05/04/19 12:00 BP 114/51 05/04/19 12:00 Pulse Ox 93 05/04/19 08:27 05/03/19 05/04/19 05/04/19 22:59 06:59 14:59 Intake Total 1240 / 3200 975 / 4175 1910 / 1910 Output Total 1525 / 2575 975 / 3550 700 / 700 Balance -285 / 625 0 / 625 1210 / 1210 Weight last 48 hrs Weight 36.423 kg Weight 34.609 kg Physical Exam Const: COMMON NORMALS: oriented x3 and alert GENERAL APPEARANCE: frail appearing NUTRITIONAL APPEARANCE: cachectic ORIENTATION/CONSCIOUSNESS: Yes awake, Yes oriented to person, Yes oriented to place and Yes oriented to time HENMT: COMMON NORMALS: normocephalic and head/scalp atraumatic HEAD & S CALP: normocephalic and atraumatic OTHER: Temporal wasting Eye: COMMON NORMALS: PERRL PUPIL: Yes PERRL Neck/C-Spine: COMMON NORMALS: supple GENERAL: Yes normal visual inspection Resp: COMMON NORMALS: normal respiratory effort and clear to auscultation bilaterally EFFORT & INSPECTION: Yes able to speak in complete sentences AUSCULTATION: clear to auscultation bilaterally, no rhonchi and no wheezes Cardio: COMMON NORMALS: regular rate, regular rhythm and no murmurs RATE: regular rate RHYTHM: regular rhythm GI: INSPECTION: Yes abdominal distension OTHER: Ostomy in place, abdomen flat, nontender : COMMON NORMALS: Yes no CVA tenderness BLADDER/KIDNEY EXAM: Yes no CVA tenderness Back/Pelvis: COMMON NORMALS: no CVA tenderness Extremity: NARRATIVE EXTREMITY EXAM: Thin lower extremities with muscle wasting bilaterally in the upper and lower extremities, no cyanosis or edema Neuro: COMMON NORMALS: oriented x3, CN's II-XII intact bilaterally, moves all extremities and no focal motor deficits SENSORIUM/ORIENTATION: Yes alert, Yes oriented to person, Yes oriented to place and Yes oriented to time SPEECH: speech normal OTHER: Muscle tremor resolved Psych: COMMON NORMALS: mental status grossly normal and cooperative Skin: COMMON NORMALS: no rashes or lesions noted GENERAL SKIN EXAM: no rashes or lesions noted OTHER: Stage III sacral ulcer, small opening in the central ulcer with no appreciable drainage Data : 05/04/19 04:15 05/04/19 04:15 Micro: Microbiology 05/02/19 12:20 Blood Culture - Preliminary Blood NEGATIVE TO DATE 05/02/19 08:05 Blood Culture - Preliminary Blood NEGATIVE TO DATE A&P Assessment and plan (1) Acute renal failure: Improving with IV fluids. Creatinine improved to 5.9 today, BUN improved to 50 Nephrology consulted. Appreciate recommendations and assistance in patient's care Hold nephrotoxic agents. Concern for severe dehydration and high output from her ostomy that contributed to her acute renal failure Transfer out of the ICU today Status: Acute Code(s): N17.9 - Acute kidney failure, unspecified (2) Chronic anemia: Chronic anemia Hemoglobin at 7.4 today, no evidence of any active bleeding EPO ordered for today Transfuse if hemoglobin drops less than 4 Status: Acute Code(s): D64.9 - Anemia, unspecified (3) Chronic kidney disease, stage III (moderate): With acute on chronic renal failure as above Status: Acute Code(s): N18.3 - Chronic kidney disease, stage 3 (moderate) (4) Crohn's disease: Crohn's disease status post colectomy with ostomy in place. Chronic high output from ostomy, due to this patient is on chronic potassium and magnesium infusions weekly, recommendation from nephrology has been that patient receive IV fluids at time of her infusions. Status: Acute Code(s): K50.90 - Crohn's disease, unspecified, without complications (5) Severe protein-calorie malnutrition: Restart regular diet Status: Acute Code(s): E43 - Unspecified severe protein-calorie malnutrition (6) Pressure ulcer of sacral region, unspecified stage: Stage III pressure ulcer on the sacrum. Followed by wound care. No evid ence of any acute infection at this time Status: Acute Code(s): L89.159 - Pressure ulcer of sacral region, unspecified stage (7) Systolic congestive heart failure: Repeat echocardiogram shows LVEF of 70% with grade 1 diastolic dysfunction. No evidence of fluid overload at this time Status: Acute Code(s): I50.20 - Unspecified systolic (congestive) heart failure (8) Ventricular tachyarrhythmia: Likely secondary to acute kidney injury and electrolyte abnormalities on admission. Patient has not had any episodes in over 24 hours. Transferred to the medical floor with telemetry Status: Acute Code(s): I47.2 - Ventricular tachycardia Additional A&P Information Underweight with a BMI of 12.8, dietary consultation Recent treatment for bacteremia, had received 4 weeks of IV vancomycin, completed course in early April. Repeat blood cultures ordered for evaluation. Had Port-A-Cath removal due to this concern. New port placement last week by general surgeon. Severely malnourished: Previously on TPN at an outside facility for wound healing Leukocytosis: Reports occasional cough over the past couple of days: Flu swab negative. This was likely stress reaction as this has resolved Chronic hypotension: We will continue to monitor blood pressure closely and continue IV fluids as noted above DVT prophylaxis: SCDs, no pharmacologic prophylaxis due to concern for anemia Diet: Regular diet CODE STATUS: Full code, discussed with patient and her at bedside Attestations Medical Necessity Statement*: Patient requires continued hospitalization due to acute kidney injury. Transfer out of the ICU today. Coding Level of Care Code Acute Drainage Inspector for [facility] Fwd Diagnoses Acute renal failure N17.9 Chronic anemia D64.9 Chronic kidney disease, stage III (moderate) N18.3 Crohn's disease K50.90 Severe protein-calorie malnutrition E43 Pressure ulcer of sacral region, unspecified stage L89.159 Systolic congestive heart failure I50.20 Ventricular tachyarrhythmia I47.2
[2019-05-04] MEDS: gabapentin 300 mg Capsule PO (18:27)
[2019-05-04] MEDS: TRAMadol 50 mg Tablet PO (19:53)
[2019-05-04] MEDS: atorvastatin 40 mg Tablet 20 MG PO (20:41)
[2019-05-04] MEDS: venlafaxine ER (24HR) 37.5 mg Capsule PO (21:08)
[2019-05-05] VITALS: BP 118/76; PULSE 96; RESP 20; TEMP 36.5; O2SAT 100
[2019-05-05 03:58] VITALS: BP 118/47; PULSE 94; RESP 18; TEMP 37; O2SAT 98
[2019-05-05 05:10] LABS: Basophils % 0.5 %; Eosinophils % 13.3 %; Hematocrit 24.1 % (37.0-47.0); Hemoglobin 7.5 g/dL (11.5-15.3); Lymphocytes # 0.9 10^3/uL (0.8-4.8); Lymphocytes % 11.6 %; Mean Corpuscular HGB Conc 31.1 g/dL (30.0-36.0); Mean Corpuscular Hemoglobin 27.6 pg (28.0-34.0); Mean Corpuscular Volume 88.6 fL (81-99); Mean Platelet Volume 12.1 fL (7.4-10.4); Monocytes # 1.1 10^3/uL (0.2-0.9); Monocytes % 13.7 %; Neutrophils # 4.8 10^3/uL (1.8-7.7); Neutrophils % 60.6 %; Nucleated Red Blood Cells % 0 %; Platelet Count 166 10^3/cmm (130-400); Red Blood Count 2.72 10^6/uL (4.1-5.3); Red Cell Distribution Width 16.3 % (12.1-15.1); White Blood Count 7.8 10^3/uL (4.0-10.0)
[2019-05-05 05:30] LABS: Magnesium 1.5 mg/dL (1.7-2.3); Phosphorus 3.5 mg/dL (2.5-4.5)
[2019-05-05 05:31] LABS: Blood Urea Nitrogen 35 mg/dL (8-23); Calcium 8.7 mg/dL (8.5-10.5); Carbon Dioxide 19 mmol/L (22-29); Chloride 102 mmol/L (98-107); Glucose 95 mg/dL (65-115); Osmolality Calculated 279 mOsm/kg (285-295); Sodium 136 mmol/L (136-145)
[2019-05-05 07:44] VITALS: BP 123/66; PULSE 105; RESP 18; TEMP 37.3; O2SAT 100
[2019-05-05] MEDS: gabapentin 300 mg Capsule PO (08:05)
[2019-05-05] MEDS: aspirin 81 mg EC Tablet PO (08:05)
--- NOTE | 2019-05-05 11:15 | P.DS_ITS ---
Discharge Providers Date of Admission: 05/02/19 13:35 Date of Discharge: May 05, 2019 Attending Provider at Admission: Joana Cody DO Attending Provider at Discharge: Joana Cody DO Primary Care Provider: Bina Yanes MD Diagnoses at Discharge Discharge Diagnosis (1) Acute renal failure: Status: Acute (2) Chronic anemia: Status: Acute (3) Chronic kidney disease, stage III (moderate): Status: Acute (4) Crohn's disease: Status: Acute (5) Severe protein-calorie malnutrition: Status: Acute (6) Pressure ulcer of sacral region, unspecified stage: Status: Acute (7) Systolic congestive heart failure: Status: Acute (8) Ventricular tachyarrhythmia: Status: Acute Reason for Visit Reason for Visit: Reason For Visit: Tremor, weakness Hospital Course Hospital Course: Patient was seen and evaluated in the emergency department and admitted for further evaluation due to concern for acute on chronic renal failure. She was noted to have a creatinine of 17 on admission with a potassium of 6.6. She was noted to be significantly dehydrated. Nephrology was consulted and patient was admitted to the ICU. She was noted to have hyperphosphatemia. She also noted to have intermittent nonsustained ventricular tachycardia. She had recently been discharged from long-term acute care facility started on Lasix and other cardiac medications including Coreg and lisinopril. These were all held. Patient's renal function continued to improve with with IV fluids and she was ultimately transferred to the floor. Patient did not have any further episodes of ventricular tachycardia on telemetry and on date of discharge her creatinine had improved to 2.9. She felt good on date of discharge and denied any chest pain or shortness of breath, denied any abdominal pain. Discussed with patient plan for discharge to home. Nephrology cleared patient for discharge. Physical Exam Const: COMMON NORMALS: oriented x3 and alert GENERAL APPEARANCE: frail appearing NUTRITIONAL APPEARANCE: cachectic ORIENTATION/CONSCIOUSNESS: Yes awake, Yes oriented to person, Yes oriented to place and Yes oriented to time HENMT: COMMON NORMALS: normocephalic and head/scalp atraumatic HEAD & SCALP: normocephalic and atraumatic OTHER: Temporal wasting Eye: COMMON NORMALS: PERRL PUPIL: Yes PERRL Neck/C-Spine: COMMON NORMALS: supple GENERAL: Yes normal visual inspection Resp: COMMON NORMALS: normal respiratory effort and clear to auscultation bilaterally EFFORT & INSPECTION: Yes able to speak in complete sentences AUSCULTATION: clear to auscultation bilaterally, no rhonchi and no wheezes Cardio: COMMON NORMALS: regular rate, regular rhythm and no murmurs RATE: regular rate RHYTHM: regular rhythm GI: INSPECTION: Yes abdominal distension OTHER: Ostomy in place, abdomen flat, nontender : COMMON NORMALS: Yes no CVA tenderness BLADDER/KIDNEY EXAM: Yes no CVA tenderness Back/Pelvis: COMMON NORMALS: no CVA tenderness Extremity: NARRATIVE EXTREMITY EXAM: Thin lower extremities with muscle wasting bilaterally in the upper and lower extremities, no cyanosis or edema Neuro: COMMON NORMALS: oriented x3, CN's II-XII intact bilaterally, moves all extremities and no focal motor deficits SENSORIUM/ORIENTATION: Yes alert, Yes oriented to person, Yes oriented to place and Yes oriented to time SPEECH: speech normal OTHER: Muscle tremor resolved Psych: COMMON NORMALS: mental status grossly normal and cooperative Skin: COMMON NORMALS: no rashes or lesions noted GENERAL SKIN EXAM: no rashes or lesions noted OTHER: Stage III sacral ulcer, small opening in the central ulcer with no appreciable drainage Discharge Data Data Completed and Pending: Completed Studies During Hospitalization Category Date Time Status XR chest 1V awilda ble [id number] Urgent Exams 05/02/19 11:14 Completed CV echo complete* [id number] Urgent Ultrasound 05/02/19 11:19 Completed US renal BI* [id number] Urgent Ultrasound 05/02/19 10:38 Completed Pending at discharge Category Date Time Status Blood Culture Sta t Lab 05/02/19 12:20 Results Labs from last 24 hours 05/05/19 05/05/19 05/05/19 04:30 04:30 04:30 WBC 7.8 RBC 2.72 L Hgb 7.5 L Hct 24.1 L MCV 88.6 MCH 27.6 L MCHC 31.1 RDW 16.3 H Plt Count 166 MPV 12.1 H Neut % (Auto) 60.6 Lymph % (Auto) 11.6 Darke % (Auto) 13.7 Eos % (Auto) 13.3 Baso % (Auto) 0.5 Neut # (Auto) 4.8 Lymph # (Auto) 0.9 Darke # (Auto) 1.1 H Eos # (Auto) 1.0 H Baso # (Auto) 0.0 Nucleated RBC % (a uto) 0 Nucleated RBCs # 0.0 Sodium 136 Potassium 3.0 L Chloride 102 Carbon Dioxide 19 L Anion Gap 18.0 BUN 35 H Creatinine 2.9 H GFR Calculation 16.0 L Glucose 95 Calculated Osmolal ity 279 L Calcium 8.7 Phosphorus 3.5 Magnesium 1.5 L Iron TIBC % Saturation Unsat Iron Binding 05/04/19 11:00 WBC RBC Hgb Hct MCV MCH MCHC RDW Plt Count MPV Neut % (Auto) Lymph % (Auto) Darke % (Auto) Eos % (Auto) Baso % (Auto) Neut # (Auto) Lymph # (Auto) Darke # (Auto) Eos # (Auto) Baso # (Auto) Nucleated RBC % (a uto) Nucleated RBCs # Sodium Potassium Chloride Carbon Dioxide Anion Gap BUN Creatinine GFR Calculation Glucose Calculated Osmolal ity Calcium Phosphorus Magnesium Iron 126 TIBC 216 % Saturation 58.3 H Unsat Iron Binding 90 L Vitals: Last Vital Signs Temp 99.1 F 05/05/19 07:44 Pulse 105 H 05/05/19 07:44 Resp 18 05/05/19 07:44 BP 123/66 05/05/19 07:44 Pulse Ox 100 05/05/19 07:44 Discharge Plan Discharge Patient Disposition: Home Health Service Condition: Stable Prescriptions: Continued melatonin 3 mg Tablet 3 mg PO BEDTIME PRN (Reason: Sleep) RF: 0 nitroglycerin 0.4 mg Tablet, Sublingual 0.4 mg SUBLINGUAL Q5M PRN (Reason: Chest Pain) RF: 0 promethazine 25 mg Tablet 25 mg PO QID PRN (Reason: Nausea) RF: 0 tramadol [Ultram] 50 mg Tablet 50 mg PO Q6H PRN (Reason: Pain, Moderate) RF: 0 gabapentin 300 mg capsule 300 mg PO BID RF: 0 Effexor XR 37.5 mg Capsule,Extended Release 24hr 37.5 mg PO BEDTIME RF: 0 Lipitor 20 mg Tablet 20 mg PO BEDTIME RF: 0 Zofran 4 mg Tablet 8 mg PO TID PRN (Reason: Nausea) RF: 0 Aspir-81 81 mg Tablet,Delayed Release (Dr/Ec) 81 mg PO DAILY RF: 0 famotidine 20 mg Tablet 20 mg PO DAILY RF: 0 phenazopyridine 97.5 mg Tablet 97.5 mg PO PRN RF: 0 potassium chloride 20 mEq Tablet Extended Release 20 meq PO QAM RF: 0 MediHoney (honey) See Rx Instructions .ROUTE .COMPLEX RF: 0 Neirtlcld87 1 cap PO DAILY RF: 0 Discontinued Lasix 40 mg Tablet 40 mg PO QAM RF: 0 carvedilol 3.125 mg Tablet 3.125 mg PO BID RF: 0 lisinopril 2.5 mg Tablet 2.5 mg PO DAILY RF: 0 Discharge Orders: Discharge Order (Routine); Ordered 05/05/19 Ordered By: Joana Cody Referrals: [facility] [Outside] Dipak Benz MD [Referring] - 2 weeks Veda Gilman MD [Physician] - 1-3 days Discharge Diet: Advance as tolerated and Usual diet Discharge Activity: Increase activity as tolerated Activity Restrictions/Additional Instructions: Follow-up with Dr. Gilman early next week with recommendation for recheck BMP and continue with potassium and magnesium infusion as well as IV fluid infusion as recommended by nephrology Follow-up with Dr. Benz in 1 to 2 weeks Call your physician or present to the ER for any acute illness or concern Discharge Attestations Time Spent in Discharge Care*: greater than 30 min Quality Metrics Clinical Quality Measures During this hospital stay, did patient experience: None Coding Level of Care Code Acute Transmitter Engineer for g Fwd Exam Comprehensive Diagnoses Acute renal failure N17.9 Chronic anemia D64.9 Chronic kidney disease, stage III (moderate) N18.3 Crohn's disease K50.90 Severe protein-calorie malnutrition E43 Pressure ulcer of sacral region, unspecified stage L89.159 Systolic congestive heart failure I50.20 Ventricular tachyarrhythmia I47.2
[2019-05-05 11:17] VITALS: BP 119/67; PULSE 91; RESP 18; TEMP 37.1; O2SAT 100
[2019-05-05] MEDS: magnesium sulfate premix 2 GM/50 ML PIGGYBACK IV (11:43)
[2019-05-05 12:04] VITALS: BP 119/67; PULSE 91; RESP 18; TEMP 37.1; O2SAT 100
--- NOTE | 2019-05-05 12:26 | PC.SOCIAL ---
Pg 2 IMM Explained to pt Pg 2 IMM & provided pt a copy. No questions voiced. Signed, dated, timed, & placed in pt's chart.
[2019-05-05 14:53] VITALS: BP 133/68; PULSE 96; RESP 16; TEMP 37.2; O2SAT 99
--- NOTE | 2019-05-05 15:47 | PC.NURSE ---
Discharge Discharge information given per the physician's orders. Patient verbalized understanding and did not have any further questions. Nurse received telephone order from Dr. Cody to discharge patient without Services as all companies refused her.
== END 2019-05-05 15:54 | disposition home health service (06) | DRG 682 ==
LOC: ER 11:24 → ICU 18:08 → MEDSURG 05-04 12:40
PROVIDERS: Internal Medicine Nephrology; Admitting Provider Family Medicine; Emergency Provider Emergency Medicine; Family Provider Family Medicine; PCP Family Medicine; Visit Provider Family Medicine
DX: N17.9 Acute kidney failure, unspecified (principal); L89.893 Pressure ulcer of other site, stage 3; I50.21 Acute systolic (congestive) heart failure; E43 Unspecified severe protein-calorie malnutrition; K50.90 Crohn's disease, unspecified, without complications; I47.2 Ventricular tachycardia; Z68.1 Body mass index [BMI] 19.9 or less, adult; N18.3 Chronic kidney disease, stage 3 (moderate); D64.9 Anemia, unspecified; E83.39 Other disorders of phosphorus metabolism; Z79.899 Other long term (current) drug therapy; Z79.82 Long term (current) use of aspirin; Z88.0 Allergy status to penicillin; Z88.8 Allergy status to other drugs, medicaments and biological substances; Z88.5 Allergy status to narcotic agent; Z88.2 Allergy status to sulfonamides; Z88.1 Allergy status to other antibiotic agents; I25.2 Old myocardial infarction; I95.89 Other hypotension; E87.6 Hypokalemia; Z91.040 Latex allergy status
CPT/HCPCS: 12345; 36415; 36591; 36600; 71045; 76770; 80048; 80053; 80202; 80307; 81001; 82330; 82550; 82570; 82803; 83540; 83550; 83605; 83690; 83735; 83930; 84100; 84134; 84156; 84300; 84443; 85025; 85610; 87040; 87804; 93005; 93306; 96372; 96375; 97116; 97163; 97165; 97530; 99284; J0610; J1642; J3411; J3475; J3490; J7030; J7040; Q0169; Q3014; Q4081

== ENCOUNTER 2019-05-20 13:06 | Outpatient (RCR) | payer MEDICARE, SELFPAY | END 2019-05-31 23:59 | disposition home or self-care (01) | LOC: WOUND 13:06 | PROVIDERS: Family Provider Family Medicine; PCP Family Medicine; Visit Provider Surgery | DX: I96 Gangrene, not elsewhere classified (principal); L89.152 Pressure ulcer of sacral region, stage 2 | CPT/HCPCS: 11042; 11043 ==

== ENCOUNTER 2019-05-26 14:00 | Outpatient (CLI) | payer MEDICARE, SELFPAY ==
[2019-05-26 15:29] LABS: Basophils % 0.2 %; Eosinophils # 0.1 10^3/uL (0.0-0.8); Eosinophils % 0.5 %; Hematocrit 29.9 % (37.0-47.0); Hemoglobin 9.4 g/dL (11.5-15.3); Lymphocytes # 0.8 10^3/uL (0.8-4.8); Lymphocytes % 4.7 %; Mean Corpuscular HGB Conc 31.4 g/dL (30.0-36.0); Mean Corpuscular Hemoglobin 26.9 pg (28.0-34.0); Mean Corpuscular Volume 85.4 fL (81-99); Mean Platelet Volume 10.6 fL (7.4-10.4); Monocytes # 1.3 10^3/uL (0.2-0.9); Monocytes % 7.4 %; Neutrophils # 15.1 10^3/uL (1.8-7.7); Neutrophils % 86.7 %; Nucleated Red Blood Cells % 0 %; Platelet Count 489 10^3/cmm (130-400); Red Cell Distribution Width 18.3 % (12.1-15.1); White Blood Count 17.4 10^3/uL (4.0-10.0)
[2019-05-26 15:55] LABS: Alanine Aminotransferase 18 U/L (0-33); Albumin Level 3.9 g/dL (3.5-5.2); Alkaline Phosphatase 130 IU/L (35-105); Anion Gap 24.6 (5-19); Aspartate Amino Transferase 27 U/L (0-32); Blood Urea Nitrogen 71 mg/dL (8-23); Calcium 9.6 mg/dL (8.5-10.5); Carbon Dioxide 30 mmol/L (22-29); Chloride 74 mmol/L (98-107); Globulin 3.2 g/dL (1.3-4.6); Glomerular Filtration Rate 9.4 mL/min (90-130); Glucose 92 mg/dL (65-115); Magnesium 1.6 mg/dL (1.7-2.3); Osmolality Calculated 259 mOsm/kg (285-295); Potassium 3.6 mmol/L (3.5-5.1); Sodium 125 mmol/L (136-145); Total Bilirubin 0.7 mg/dL (0.15-1.2); Total Protein 7.1 g/dL (6.6-8.7)
== END 2019-05-26 14:01 | disposition home or self-care (01) ==
LOC: ONCMED 16:13
PROVIDERS: Family Provider Family Medicine; PCP Family Medicine; Visit Provider Internal Medicine Hematology & Oncology
DX: K90.9 Intestinal malabsorption, unspecified (principal)
CPT/HCPCS: 80053; 83735; 85025

== ENCOUNTER 2019-06-09 14:45 | Outpatient (CLI) | payer MEDICARE, SELFPAY | END 2019-06-09 14:46 | disposition home or self-care (01) | PROVIDERS: Family Provider Family Medicine; PCP Family Medicine; Visit Provider Internal Medicine Hematology & Oncology | DX: Z45.2 Encounter for adjustment and management of vascular access device (principal) | CPT/HCPCS: 11043; 96523 ==

== ENCOUNTER 2019-06-15 16:23 | Outpatient (CLI) | payer MEDICARE, SELFPAY ==
[2019-04-26 13:25] VITALS: BMI 12.8
--- NOTE | 2019-04-27 | SCC_ITS ---
Procedure Done: Placement of PowerPort in the left subclavian vein 18.4 seconds of fluoroscopic guidance, for a cumulative dose of 1.38 mGy, was provided to Dr. Larkin by the radiology department. C-arm images of the chest were saved for the patient's permanent record. [facility]
[2019-04-27 08:26] VITALS: BP 81/54; PULSE 101; RESP 18; TEMP 36.5; O2SAT 93
--- NOTE | 2019-04-27 08:28 | W.PM.OPSUD ---
Surgery/Procedure H&P Update DATE OF PROCEDURE: April 27, 2019 DATE H&P PERFORMED: 04/22/19 H&P UPDATE INFORMATION: I have reviewed H&P completed within last 30 days, I have examined patient prior to procedure and No changes to prior documentation PREOP DIAGNOSIS: Poor venous access PLANNED PROCEDURE: Operation Date: 04/27/19 07:50 Proposed Procedures p Portacath Placement 35765 D64.9(Bilateral) - Aneudy Larkin MD
--- NOTE | 2019-04-27 08:47 | SC_ITS ---
WS: [id number] C-arm fluoroscopy of the chest for Port-A-Cath placement, 04/27/2019 Clinical Data: port placement Comparison: Portable chest, 03/01/2019. Findings: The left Port-A-Cath has been inserted. It ends in the superior vena cava. SC/C-arm FL for CVA [id number] Impression: Left Port-A-Cath insertion.
--- NOTE | 2019-04-27 09:06 | ANES.PREANE2 ---
Pre-Anesthetic Assessment Pre-Anesthetic Assessment: Height/Weight: Height 1.57 m Weight 31.751 kg Temp Pulse Resp BP Pulse Ox 97.7 F 101 H 18 81/54 93 04/27/19 08:26 04/27/19 08:26 04/27/19 08:26 04/27/19 08:26 04/27/19 08:26 Preop Diagnosis: Poor venous access Proposed Procedure: Operation Date: 04/27/19 07:50 Proposed Procedures p Portacath Placement 63259 D64.9(Bilateral) - Aneudy Larkin MD Last intake: Intake Last Liquid Date 04/26/19 Last Liquid Time 21:00 Last Solid Date 04/26/19 Last Solid Time 21:00 Exam: Pre-Anes Outpt Exam: alert, oriented x 3, clear to auscultation bilaterally and regular rate & rhythm Airway: Submandibular: WNL Cervical ROM: WNL MP: 1 Dentition: False CV/HEM: Comments: ' stress test negative GI: Comments: crohn's diseaes Neuropsych: Neuropsych: ESPARZA Anesthetic Plan: ASA status: 3 Anesthesia: MAC PFSH Anesthesia PFSH: Social History Smoking and tobacco status: never smoked Alcohol intake: never Marital status: Data Anesthesia Cardiac Studies: No Data to Display
[2019-04-27] MEDS: vancomycin 1,000 MG in sodium chloride 0.9% 250 ML 250 MG IV (09:15)
[2019-04-27] MEDS: sodium chloride 0.9% 1,000 ML 30 ML IV (09:15)
[2019-04-27] MEDS: heparin, porcine 1,000 unit/mL INJ 10 mL 10000 UNIT INJECTION (09:57)
[2019-04-27] MEDS: lidocaine 1% INJ 20 mL SUBCUT (09:57)
--- NOTE | 2019-04-27 10:25 | P.OP_ITS ---
Operative Report Date of procedure: April 27, 2019 Pre-op Diagnosis: Poor venous access requiring weekly infusion Post-op diagnosis: same Procedure Done: Placement of PowerPort in the left subclavian vein Fluoroscopic guidance and interpretation for placement of catheter Pathology: none sent Surgeon: Aneudy Larkin Anesthesia: MAC Condition: stable Disposition: same day Procedure: The patient was taken to the Operating Room and the chest and neck bilaterally were prepped and draped in a sterile manner after the antibiotic had been administered and shoulder rolls had been placed. A total of 10 mL of 1% lidocaine with 0.5% Marcaine was infiltrated under the clavicle on the left side at the site of the planned entry into the subclavian vein. An introducer needle was then used to access the subclavian vein under the clavicle and after withdrawing blood syringe was removed and a guidewire passed under fluoroscopy into the superior vena cava. The site of the planned port was then marked on the chest and a 15 blade was used to make a 3 cm skin incision this was extended into the subcutaneous tissue using electrocautery and a subcutaneous pocket over the pectoralis fascia was created 2-0 Vicryl suture was used to suture the port to the pectoral fascia in the pocket on 3 sides. The catheter, after having been flushed with hep saline, was attached to the tunneler and a tunnel created between the port site and the subclavian vein entry site. Under fluoroscopy the dilator sheath was passed over the guidewire into the proximal superior vena cava. The inner dilator was removed and the sheath left behind and~ the catheter was introduced through the peel-away sheath with the tip in the superior vena cava. The peel-away sheath was removed. The proximal end of the catheter was cut to the right size and was attached to the port. Using a Rao needle the port was accessed, it withdrew blood easily and flushed easily. A final 5cc of heparin was used to flush the Mediport. The subcutaneous tissue was approximated using interrupted 3-0 Vicryl sutures and th e skin at the introducer site and the port site was closed using subcuticular running 4-0 Monocryl sutures. Dermabond was applied and the patient was stable throughout the procedure. Fluoroscopic guidance and interpretation was performed for introduction of the guidewire in the left subclavian vein, passage of dilator and placement of catheter tip in the distal superior vena cava.
[2019-04-27 10:27] VITALS: BP 87/45; PULSE 89; RESP 16; TEMP 36.2; O2SAT 94
[2019-04-27 11:13] VITALS: BP 96/58; PULSE 91; RESP 16; TEMP 36.6; O2SAT 94
[2019-04-27 11:19] VITALS: RESP 18; O2SAT 94
[2019-04-27] MEDS: oxyCODONE 5 mg IR Tab/Cap PO (11:19)
[2019-06-15 16:56] LABS: Basophils # 0.1 10^3/uL (0.0-0.1); Basophils % 0.3 %; Eosinophils % 0.2 %; Hematocrit 26.4 % (37.0-47.0); Hemoglobin 8.5 g/dL (11.5-15.3); Lymphocytes # 0.5 10^3/uL (0.8-4.8); Lymphocytes % 2.1 %; Mean Corpuscular HGB Conc 32.2 g/dL (30.0-36.0); Mean Corpuscular Hemoglobin 28.4 pg (28.0-34.0); Mean Corpuscular Volume 88.3 fL (81-99); Monocytes # 0.8 10^3/uL (0.2-0.9); Monocytes % 3.6 %; Neutrophils # 21.1 10^3/uL (1.8-7.7); Neutrophils % 92.8 %; Nucleated Red Blood Cells % 0 %; Platelet Count 364 10^3/cmm (130-400); Red Blood Count 2.99 10^6/uL (4.1-5.3); Red Cell Distribution Width 18.6 % (12.1-15.1); White Blood Count 22.8 10^3/uL (4.0-10.0)
[2019-06-15 17:18] LABS: Alanine Aminotransferase 18 U/L (0-33); Albumin Level 3.6 g/dL (3.5-5.2); Alkaline Phosphatase 140 IU/L (35-105); Anion Gap 21.5 (5-19); Aspartate Amino Transferase 19 U/L (0-32); Blood Urea Nitrogen 80 mg/dL (8-23); Carbon Dioxide 24 mmol/L (22-29); Chloride 75 mmol/L (98-107); Globulin 3.2 g/dL (1.3-4.6); Glomerular Filtration Rate 13.4 mL/min (90-130); Glucose 99 mg/dL (65-115); Magnesium 1.4 mg/dL (1.7-2.3); Osmolality Calculated 244 mOsm/kg (285-295); Potassium 3.5 mmol/L (3.5-5.1); Total Bilirubin 0.4 mg/dL (0.15-1.2); Total Protein 6.8 g/dL (6.6-8.7)
[2019-06-15 17:53] LABS: Sodium 117 mmol/L (136-145)
== END 2019-06-15 16:24 | disposition home or self-care (01) ==
LOC: LAB 16:24
PROVIDERS: Family Provider Family Medicine; PCP Internal Medicine Hematology & Oncology; Visit Provider Surgery
PROC: (CPT 36561; principal; 2019-04-27 07:50)
DX: E87.6 Hypokalemia (principal); E83.42 Hypomagnesemia; D64.9 Anemia, unspecified; N18.9 Chronic kidney disease, unspecified
CPT/HCPCS: 36561; 12345; 76000; 77001; 80053; 83735; 85025; 96365; C1788; J1644; J2001; J2704; J3370; J3490; J7030; J7050

== ENCOUNTER 2019-06-17 10:29 | Outpatient (CLI) | payer MEDICARE, SELFPAY ==
[2019-06-17] MEDS: sodium chlor 0.9% + KCl 40 mEq 40 MEQ/1,000 ML BAG 250 MEQ IV (11:00)
[2019-06-17 12:14] LABS: Sodium 121 mmol/L (136-145)
== END 2019-06-17 10:30 | disposition home or self-care (01) ==
LOC: ONCMED 10:29
PROVIDERS: Family Provider Family Medicine; PCP Family Medicine; Visit Provider Internal Medicine Hematology & Oncology
DX: E87.5 Hyperkalemia (principal)
CPT/HCPCS: 84295; 96365; 96366

== ENCOUNTER 2019-06-17 13:15 | Outpatient (CLI) | payer MEDICARE, SELFPAY | END 2019-06-17 13:16 | disposition home or self-care (01) | LOC: WOUND 07-21 10:37 | PROVIDERS: Visit Provider Surgery | DX: I96 Gangrene, not elsewhere classified (principal); L89.153 Pressure ulcer of sacral region, stage 3 | CPT/HCPCS: 11043 ==

== ENCOUNTER 2019-06-22 17:42 | Outpatient (CLI) | payer MEDICARE, SELFPAY ==
[2019-06-22 21:36] LABS: Albumin Level 3.2 g/dL (3.5-5.2); Anion Gap 16.7 (5-19); Blood Urea Nitrogen 45 mg/dL (8-23); Calcium 8.6 mg/dL (8.5-10.5); Carbon Dioxide 34 mmol/L (22-29); Chloride 77 mmol/L (98-107); Glomerular Filtration Rate 12.9 mL/min (90-130); Glucose 72 mg/dL (65-115); Magnesium 1.3 mg/dL (1.7-2.3); Phosphorus 3.5 mg/dL (2.5-4.5); Potassium 3.7 mmol/L (3.5-5.1); Sodium 124 mmol/L (136-145)
== END 2019-06-22 17:43 | disposition home or self-care (01) ==
LOC: LAB 17:47
PROVIDERS: Family Provider Family Medicine; PCP Family Medicine; Visit Provider Internal Medicine Nephrology
DX: N18.9 Chronic kidney disease, unspecified (principal); E83.42 Hypomagnesemia
CPT/HCPCS: 80069; 83735

== ENCOUNTER 2019-06-24 09:53 | Outpatient (CLI) | payer MEDICARE, SELFPAY | END 2019-06-24 09:54 | disposition home or self-care (01) | LOC: ONCMED 09:54 | PROVIDERS: PCP Family Medicine; Visit Provider Internal Medicine Hematology & Oncology | DX: K90.9 Intestinal malabsorption, unspecified (principal) | CPT/HCPCS: 96365; J3475; J7050 ==

== ENCOUNTER 2019-06-24 13:02 | Outpatient (RCR) | payer MEDICARE, SELFPAY | END 2019-06-30 23:59 | disposition home or self-care (01) | LOC: WOUND 13:02 | PROVIDERS: Family Provider Family Medicine; PCP Family Medicine; Visit Provider Surgery | DX: I96 Gangrene, not elsewhere classified (principal); L89.153 Pressure ulcer of sacral region, stage 3 | CPT/HCPCS: 11043 ==

== ENCOUNTER 2019-06-29 11:43 | Inpatient (IN) | payer MEDICARE, SELFPAY ==
[2019-06-29] VITALS (32 sets, daily range): BP systolic 64–120; BP diastolic 27–78; PULSE 80–124; RESP 4–20; TEMP 37.1; O2SAT 89–99; BMI 12.8
--- NOTE | 2019-06-29 12:06 | XR_ITS ---
WS: [id number] PORTABLE CHEST HISTORY: dyspnea/cough COMPARISON: 05/02/2019 LEFT subclavian Port-A-Cath with tip overlying the RIGHT heart, similar to the prior study. There is some increased soft tissue surrounding the port which may be related to some soft tissue edema bleedi ng. Lungs are clear and well expanded. No pleural effusion or pneumothorax. Cardiac size: Normal. Mediastinum/Aorta: Partially calcified aorta. No osseous abnormality seen. XR/XR chest 1V portable [id number] IMPRESSION: 1. No pneumonia. 2. Partially calcified aorta. 3. No change in appearance of the LEFT Port-A-Cath.
--- NOTE | 2019-06-29 12:06 | CT_ITS ---
WS: [id number] CT ABDOMEN AND PELVIS NONCONTRAST HISTORY: abd pain TECHNIQUE: Imaging performed through the abdomen and pelvis. Coronal and sagittal reformats are submi tted. All CT scans at [facility] use at least one of these dose optimization techniques: automated exposure control; mA and/or kV adjustment per patient size (includes targeted exams where d ose is matched to clinical indication); or iterative reconstruction. DLP: 128.12 mGy.cm COMPARISON: 11/03/2018 and 02/24/2019 Lower thorax: 6 mm nodule at the RIGHT lung base as increased in size since 11/03/2018. Small hiatal he rnia. Liver: Normal, no mass or intrahepatic dilatation. Gallbladder: Poorly visualized but normally distended. Pancreas: Very poorly visualized. Spleen: Normal. Adrenal glands: Mild LEFT adrenal hyperplasia. Negative RIGHT adrenal gland. Right kidney: Mild renal atrophy. No obstruction. Left kidney: Mild atrophy with no obstruction. Aortic calcification no aneurysm. No adenopathy or free fluid identified. GI tract: Small bowel ostomy has been previously described. There is very little separation of small bowel and colon. No obstruction is evident. Abdominal wall: Ostomy site is noted over the mid abdomen. Pelvis: Well-distended urinary bladder. Osseous structures: L5 anterolisthesis by 1.0 cm. L5 bilateral pars defects. Bones are severely osteo penic. Prior healed fractures involving the pubic rami. CT/CT abdomen pelvis wo con [id number] IMPRESSION: 1. Extremely limited evaluation of the abdominal and pelvic structures. Lack o f fat with no separation of the intra-abdominal or pelvic structures. 2. No acute abnormalities are identified. No GI tract obstruction. 3. Mild renal atrophy. 4. Slightly enlarging 6 mm nodule at the RIGHT lung base. Neoplasm not exclude d. 5. Small bowel osteotomy site with no evidence for an acute obstruction.
--- NOTE | 2019-06-29 12:06 | ECG_ITS ---
Measurements Intervals [place] Rate: 84 P: 85 MT: 147 QRS: 63 QRSD: 98 T: 72 QT: 401 QTc: 475 SINUS RHYTHM LEFT ATRIAL ENLARGEMENT [-0.15mV P WAVE IN V1/V2] INCOMPLETE RIGHT BUNDLE BRANCH BLOCK SEPTAL MYOCARDIAL INFARCTION,OF INDETERMINATE AGE Compared to ECG 05/02/2019 08:27:39 Incomplete right bundle-branch block now present Myocardial infarct finding now present Electronically Signed On 06-29-2019 19:30:13 CDT by Sara Arango M.D. [email or web address]
--- NOTE | 2019-06-29 12:09 | W.ED.NAVMDI ---
HPI - Nausea/Vomiting/Diarrhea General: Chief complaint: Nausea/Vomiting/Diarrhea Stated complaint: N/V Time Seen by Provider: 06/29/19 12:05 History of Present Illness: HPI Narrative: 69 yo female presents to the emergency room with vomiting x1 week. She has a history of Crohn's disease she is extremely cachectic. She has not eaten for the last week per the patient she lives at home. She denies any hematochezia hematemesis or coffee-ground emesis she has had some increased output from her ileostomy ileostomy she has had. Although she states is not much more than usual when she is not able to eat. She reports a temp of 102 at home she has had this for the last couple of days intermittently. She denies any dysuria urgency or frequency denies any chest pain or respiratory symptoms. Associated nausea: Yes Associated symtoms: Reports fatigue, malaise and nausea; Denies bloating, chest pain or dysuria Review of Systems Const: Reports: fever, chills, change in appetite, fatigue and malaise; Denies: body aches ENMT: Denies: throat pain, ear pain, nasal discharge or nasal congestion Card: Denies: chest pain, edema, shortness of breath on exertion or shortness of breath when lying down Resp: Denies: shortness of breath, productive cough or non-productive cough GI: Reports: abdominal pain, nausea and vomiting; Denies: vomiting blood, coffee grounds in vomit, diarrhea, constipation, bloating, blood in stool or black tarry stool : Denies: flank pain, difficulty urinating, painful urination, urinary frequency or urinary urgency Skin/Breast: Denies: rash or itching PFSH ED PFSH: Surgical History H/O ileostomy H/O total colectomy History of delivery x4 Hx of appendectomy Port-A-Cath in place Family History Other CAD (coronary artery disease) Cancer Congestive heart failure Diabetes Hyperlipidemia Social History Smoking and tobacco status: never smoked Alcohol intake: never Marital status: Physical Exam Const: GENERAL APPEARANCE: disheveled, lethargic, ill appearing and frail appearing NUTRITIONAL APPEARANCE: cachectic ORIENTATION/CONSCIOUSNESS: Yes oriented to person, Yes oriented to place, Yes oriented to time and Yes lethargic HENMT: COMMON NORMALS: normocephalic, head/scalp atraumatic and hearing grossly normal bilaterally HEAD & SCALP: normocephalic and atraumatic Eye: COMMON NORMALS: PERRL, EOMs intact bilaterally, conjunctivae normal and no scleral icterus CONJUNCTIVA: Yes conjunctivae normal PUPIL: Yes PERRL Neck/C-Spine: COMMON NORMALS: full ROM, no lymphadenopathy, supple and no JVD Lymph: LYMPHATIC: no lymphadenopathy noted and no lymphedema noted Resp: COMMON NORMALS: normal respiratory effort, no retractions, no use of accessory muscles and clear to auscultation bilaterally AUSCULTATION: clear to auscultation bilaterally Cardio: COMMON NORMALS: no JVD, regular rate, regular rhythm and no murmurs RATE: regular rate RHYTHM: regular rhythm GI: COMMON NORMALS: soft to palpation and no hepatosplenomegaly AUSCULTATION: Yes normoactive bowel sounds PALPATION: Yes soft, Yes tender (diffuse), No guarding and Yes no hepatosplenomegaly Extremity: COMMON NORMALS: normal to inspection, normal capillary refill, no clubbing, cyanosis or edema, no calf tenderness and no pedal edema Neuro: SENSORIUM/ORIENTATION: Yes oriented to person, Yes oriented to place, Yes oriented to time and Yes lethargic Skin: COMMON NORMALS: no rashes or lesions noted GENERAL SKIN EXAM: no rashes or lesions noted Course Vital Signs: Vital signs: Vital Signs Temperature 98.8 F 06/29/19 11:46 Pulse Rate 72 06/30/19 07:31 Respiratory Rate 11 L 06/30/19 04:15 Blood Pressure 91/47 06/30/19 04:15 Pulse Oximetry 100 06/30/19 07:31 MDM - Nausea/Vomiting/Diarrhea MDM Narrative: Medical decision making narrative: Reviewed findings with the patient. She is very lethargic difficult to get much out of her she is in acute renal failure. She has significant hyponatremia. Go ahead and admit her to the hospital discussed with hospitalist he will see her in the emergency room. Lab Data: Labs: Lab Results 04/29/20 04/29/20 04/29/20 Range/Units 12:02 12:02 12:02 WBC 15.4 H (4.0-10.0) 10^3/ uL RBC 3.02 L (4.1-5.3) 10^6/u L Hgb 8.4 L (11.5-15.3) g/dL Hct 25.7 L (37.0-47.0) % MCV 85.1 (81-99) fL MCH 27.8 L (28.0-34.0) pg MCHC 32.7 (30.0-36.0) g/dL RDW 17.5 H (12.1-15.1) % Plt Count 277 (130-400) 10^3/c mm MPV 10.4 (7.4-10.4) fL Neut % (Auto) 89.1 % Lymph % (Auto) 4.4 % [place] % (Auto) 5.6 % Eos % (Auto) 0.1 % Baso % (Auto) 0.2 % Neut # (Auto) 13.7 H (1.8-7.7) 10^3/u L Lymph # (Auto) 0.7 L (0.8-4.8) 10^3/u L [place] # (Auto) 0.9 (0.2-0.9) 10^3/u L Eos # (Auto) 0.0 (0.0-0.8) 10^3/u L Baso # (Auto) 0.0 (0.0-0.1) 10^3/u L Nucleated RBC % (a uto) 0 % Nucleated RBCs # 0.0 /100WBC Sodium 116 L* (136-145) mmol/L Potassium 3.4 L (3.5-5.1) mmol/L Chloride 67 L (98-107) mmol/L Carbon Dioxide 32 H (22-29) mmol/L Anion Gap 20.4 H (5-19) BUN 73 H (8-23) mg/dL Creatinine 5.4 H (0.5-0.9) mg/dL GFR Calculation 7.8 L (90-130) mL/min Glucose 105 (65-115) mg/dL Calculated Osmolal ity 242 L (285-295) mOsm/k g Calcium 9.0 (8.5-10.5) mg/dL Magnesium 1.9 (1.7-2.3) mg/dL Total Bilirubin 0.8 (0.15-1.2) mg/dL AST 21 (0-32) U/L ALT 14 (0-33) U/L Alkaline Phosphata se 145 H (35-105) IU/L Total Protein 6.6 (6.6-8.7) g/dL Albumin 3.3 L (3.5-5.2) g/dL Globulin 3.3 (1.3-4.6) g/dL Lipase 52 (13-60) U/L Urine Color (Yellow) Urine Appearance (CLEAR) Urine pH (5-7) Ur Specific Gravit y (1.005-1.030) Urine Protein (Negative) Urine Glucose (UA) (Normal) Urine Ketones (Negative) Urine Blood (Negative) Urine Nitrate (Negative) Urine Bilirubin (NEGATIVE) Urine Urobilinogen (Negative) mg/dL Ur Leukocyte Margie ase (Negative) Urine RBC (0-2) /hpf Urine WBC (0-5) /hpf Ur Squamous Epith Cells (0-5) Urine Bacteria (NONE) Influenza Type A A g (Negative) Influenza Type B A g (Negative) 06/29/19 06/29/19 Range/Units 12:20 14:40 WBC (4.0-10.0) 10^3/ uL RBC (4.1-5.3) 10^6/u L Hgb (11.5-15.3) g/dL Hct (37.0-47.0) % MCV (81-99) fL MCH (28.0-34.0) pg MCHC (30.0-36.0) g/dL RDW (12.1-15.1) % Plt Count (130-400) 10^3/c mm MPV (7.4-10.4) fL Neut % (Auto) % Lymph % (Auto) % [place] % (Auto) % Eos % (Auto) % Baso % (Auto) % Neut # (Auto) (1.8-7.7) 10^3/u L Lymph # (Auto) (0.8-4.8) 10^3/u L [place] # (Auto) (0.2-0.9) 10^3/u L Eos # (Auto) (0.0-0.8) 10^3/u L Baso # (Auto) (0.0-0.1) 10^3/u L Nucleated RBC % (a uto) % Nucleated RBCs # /100WBC Sodium (136-145) mmol/L Potassium (3.5-5.1) mmol/L Chloride (98-107) mmol/L Carbon Dioxide (22-29) mmol/L Anion Gap (5-19) BUN (8-23) mg/dL Creatinine (0.5-0.9) mg/dL GFR Calculation (90-130) mL/min Glucose (65-115) mg/dL Calculated Osmolal ity (285-295) mOsm/k g Calcium (8.5-10.5) mg/dL Magnesium (1.7-2.3) mg/dL Total Bilirubin (0.15-1.2) mg/dL AST (0-32) U/L ALT (0-33) U/L Alkaline Phosphata se (35-105) IU/L Total Protein (6.6-8.7) g/dL Albumin (3.5-5.2) g/dL Globulin (1.3-4.6) g/dL Lipase (13-60) U/L Urine Color Yellow (Yellow) Urine Appearance Hazy A (CLEAR) Urine pH 7 (5-7) Ur Specific Gravit y 1.005 (1.005-1.030) Urine Protein Neg (Negative) Urine Glucose (UA) Norm (Normal) Urine Ketones Negative (Negative) Urine Blood 2+ H (Negative) Urine Nitrate Negative (Negative) Urine Bilirubin Neg (NEGATIVE) Urine Urobilinogen Norm (Negative) mg/dL Ur Leukocyte Margie ase 2+ H (Negative) Urine RBC 0-4 H (0-2) /hpf Urine WBC 25-40 H (0-5) /hpf Ur Squamous Epith Cells 0-4 H (0-5) Urine Bacteria 4+ H (NONE) Influenza Type A A g Negative (Negative) Influenza Type B A g Negative (Negative) Discharge Plan Discharge Patient Disposition: Admitted As Inpatient Admit Provider: Mango Ge Clinical Impression: Acute hyponatremia, LUIS ALFREDO (acute kidney injury), Chronic kidney disease, stage III (moderate), Chronic anemia, UTI (urinary tract infection) Condition: Stable Interventions: ED Discharge Assessment Last Done: 06/29/19 17:03 ED Charges Last Done: 06/29/19 17:05 Discharge Date/Time: 06/29/19 17:14 Coding Level of Care Code ED Electronics Engineer for Chg Fwd Exam Comprehensive
[2019-06-29] MEDS: sodium chloride 0.9% 1,000 ML 999 ML IV ×2 (12:22→13:55)
[2019-06-29] MEDS: ondansetron 2 mg/ML SDV 2 mL 4 MG IVP (12:22)
[2019-06-29 12:31] LABS: Basophils % 0.2 %; Eosinophils % 0.1 %; Hematocrit 25.7 % (37.0-47.0); Hemoglobin 8.4 g/dL (11.5-15.3); Lymphocytes # 0.7 10^3/uL (0.8-4.8); Lymphocytes % 4.4 %; Mean Corpuscular HGB Conc 32.7 g/dL (30.0-36.0); Mean Corpuscular Hemoglobin 27.8 pg (28.0-34.0); Mean Corpuscular Volume 85.1 fL (81-99); Mean Platelet Volume 10.4 fL (7.4-10.4); Monocytes # 0.9 10^3/uL (0.2-0.9); Monocytes % 5.6 %; Neutrophils # 13.7 10^3/uL (1.8-7.7); Neutrophils % 89.1 %; Nucleated Red Blood Cells % 0 %; Platelet Count 277 10^3/cmm (130-400); Red Blood Count 3.02 10^6/uL (4.1-5.3); Red Cell Distribution Width 17.5 % (12.1-15.1); White Blood Count 15.4 10^3/uL (4.0-10.0)
[2019-06-29 12:36] LABS: Alanine Aminotransferase 14 U/L (0-33); Albumin Level 3.3 g/dL (3.5-5.2); Alkaline Phosphatase 145 IU/L (35-105); Anion Gap 20.4 (5-19); Aspartate Amino Transferase 21 U/L (0-32); Blood Urea Nitrogen 73 mg/dL (8-23); Carbon Dioxide 32 mmol/L (22-29); Chloride 67 mmol/L (98-107); Globulin 3.3 g/dL (1.3-4.6); Glomerular Filtration Rate 7.8 mL/min (90-130); Glucose 105 mg/dL (65-115); Lipase 52 U/L (13-60); Osmolality Calculated 242 mOsm/kg (285-295); Potassium 3.4 mmol/L (3.5-5.1); Total Bilirubin 0.8 mg/dL (0.15-1.2); Total Protein 6.6 g/dL (6.6-8.7)
[2019-06-29 13:02] LABS: Sodium 116 mmol/L (136-145)
[2019-06-29 13:44] LABS: Influenza A by IFA Negative (Negative); Influenza B by IFA Negative (Negative)
[2019-06-29 14:02] LABS: Magnesium 1.9 mg/dL (1.7-2.3)
[2019-06-29 15:00] LABS: Add Urine Microscopic? YES; Bilirubin Urine Neg (NEGATIVE); Blood Urine 2+ (Negative); Glucose Urine UA Norm (Normal); Ketones Urine Negative (Negative); Leukocyte Esterase Urine 2+ (Negative); Nitrate Urine Negative (Negative); Protein Urine Neg (Negative); Specific Gravity, Urine 1.005 (1.005-1.030); Urine Appearance Hazy (CLEAR); Urine Color Yellow (Yellow); Urobilinogen Urine Norm (Negative); pH Urine 7 (5-7)
[2019-06-29 15:10] LABS: WBC Urine 25-40 /hpf (0-5)
[2019-06-29 15:11] LABS: Add Urine Culture? Yes; Bacteria Urine 4+; RBC Urine 0-4 /hpf (0-2); Squamous Epithelial Cell Urine 0-4 (0-5)
[2019-06-29] MEDS: phenazopyridine 100 mg Tablet 200 MG PO (15:24)
--- NOTE | 2019-06-29 15:24 | P.HP_ITS ---
Providers/Chief Complaint Primary Care Provider: Veda Gilman MD Chief Complaint: N/V History of Present Illness Janene Gallegos is a 69 year old female presents to the hospital with history of nausea and vomiting. Patient gives history herself and reports that she has not vomited in a while but still is nauseous. She has been drinking water but not eating. She reports the output from her ostomy has not been voluminous. I atte mpted to call her to get further history but no answer on the phone currently. She does report history of fever several days ago. She denies any cough or shortness of breath, or exposure to anybody with COVID. She reports no blood from her ostomy. No chest pain. Review of Systems General: Reports: 10 or more systems reviewed and unremarkable except in HPI and below Const: Reports: fever, chills and fatigue Eyes: Denies: change in vision ENMT: Denies: throat pain Card: Denies: chest pain Resp: Denies: shortness of breath or productive cough GI: Reports: abdominal pain and nausea : Denies: flank pain Musc: Denies: neck pain Skin/Breast: Denies: rash Neuro: Denies: headache Psych: Denies: anxiety Endo: Denies: excessive urination Frankie/Lymph: Denies: easy bruising All/Imm: Denies: hives Medications/Allergies Home Medications Medication Instructions Recorded Confirmed Last Taken Type melatonin 3 mg PO BEDTIME PRN 03/01/19 06/29/19 04/26/19 History nitroglycerin 0.4 mg SUBLINGUAL Q5M PRN 03/01/19 06/29/19 04/26/19 History MediHoney (honey) See Rx Instructions .ROUTE .COMPLEX 05/02/19 06/29/19 Unknown History [id number] 1 cap PO DAILY 05/02/19 06/29/19 Unknown History famotidine 20 mg PO DAILY 05/02/19 06/29/19 Unknown History ondansetron HCl [Zofran] 8 mg PO TID PRN 05/02/19 06/29/19 Unknown History phenazopyridine 97.5 mg PO PRN 05/02/19 06/29/19 Unknown History potassium chloride 20 meq PO QAM 05/02/19 06/29/19 Unknown History aspirin 81 mg tablet,delayed 81 mg PO DAILY #90 tab 05/10/19 06/29/19 Unknown Rx release atorvastatin 20 mg tablet 20 mg PO BEDTIME #90 tab 05/10/19 06/29/19 Unknown Rx gabapentin 300 mg capsule 300 mg PO BID 90 Days #180 cap 05/10/19 06/29/19 Unknown Rx promethazine 25 mg tablet 25 mg PO QID PRN #120 tab 05/10/19 06/29/19 Unknown Rx tramadol 50 mg tablet 50 mg PO Q6H PRN #120 tab 05/10/19 06/29/19 Unknown Rx venlafaxine 37.5 mg 37.5 mg PO BEDTIME #90 cap 05/10/19 06/29/19 Unknown Rx capsule,extended release 24 hr magnesium sulfate in 0.9 %NaCl 2 2 gm IVP .weekly #100 ml 05/23/19 06/29/19 Unknown Rx gram/100 mL in 0.9 % sodium chl intraven piggyback potassium chloride in 0.9%NaCl 40 40 meq CONTINUOUS IV INFUSION 05/23/19 06/29/19 Unknown Rx mEq/L in 0.9 % sodium chloride .weekly #2000 ml intravenous Allergies Allergy/AdvReac Type Severity Reaction Status Date / Time amoxicillin Allergy ALGY-Hives Verified 05/13/19 09:12 cefazolin [From Ancef] Allergy ALGY-Rash Verified 05/13/19 09:12 cephalexin [From Keflex] Allergy ALGY-Rash Verified 05/13/19 09:12 codeine Allergy ALGY-Hives Verified 05/13/19 09:12 doxycycline Allergy ALGY-Hives Verified 05/13/19 09:12 erythromycin base Allergy ALGY-Hives Verified 05/13/19 09:12 [From E.E.S.] hydrocodone [From Philipp] Allergy Unknown Verified 05/13/19 09:12 latex Allergy Unknown Verified 05/13/19 09:12 metoclopramide Allergy Unknown Verified 05/13/19 09:12 neomycin Allergy ALGY-Hives Verified 05/13/19 09:12 Penicillins Allergy ALGY-Hives Verified 05/13/19 09:12 polyethylene glycol Allergy ADR-Swelling Verified 05/13/19 09:12 of the Eye pregabalin [From Lyrica] Allergy ALGY-Swell Verified 05/13/19 09:12 Lip/Tongue/Throat prochlorperazine Allergy ALGY-Hives Verified 05/13/19 09:12 [From Compazine] propoxyphene [From Darvon] Allergy ALGY-Hives Verified 05/13/19 09:12 sapropterin Allergy ADR-Swelling Verified 05/13/19 09:12 [From Tetrahydrobiopterin of the Eye Di-HCL] scopolamine Allergy ALGY-Hives Verified 05/13/19 09:12 Sulfa (Sulfonamide Allergy ALGY-Hives Verified 05/13/19 09:12 Antibiotics) tegaserod [From Zelnorm] Allergy ALGY-Hives Verified 05/13/19 09:12 tetracycline Allergy ALGY-Hives Verified 05/13/19 09:12 tetrahydrozoline Allergy ADR-Swelling Verified 05/13/19 09:12 [From Visine] of the Eye PFSH Acute PFSH: Medical History (Updated 06/29/19 @ 15:40 by Mango Ge MD) Atrial fibrillation Chronic anemia Chronic kidney disease, stage III (moderate) Crohn's disease Hyperaldosteronism Hypersomnia Hypokalemia Local infection due to Port-A-Cath Myocardial infarction (lateral wall) Pressure ulcer of sacral region, unspecified stage Severe protein-calorie malnutrition Systolic congestive heart failure Surgical History H/O ileostomy H/O total colectomy History of delivery x4 Hx of appendectomy Port-A-Cath in place Family History Other CAD (coronary artery disease) Cancer Congestive heart failure Diabetes Hyperlipidemia Social History Smoking and tobacco status: never smoked Alcohol intake: never Marital status: Vitals/I&O/Wt Last Vital Signs Temp 98.8 F 06/29/19 11:46 Pulse 92 06/29/19 11:46 Resp 14 06/29/19 11:46 BP 64/41 06/29/19 11:46 Pulse Ox 92 06/29/19 11:46 06/29/19 06/29/19 06/29/19 06:59 14:59 22:59 Intake Total 1000 / 1000 Balance 1000 / 1000 Weight last 48 hrs Weight 31.751 kg Physical Exam Narrative: EXAM NARRATIVE: Vital signs reviewed General exam demonstrates a cachectic appearing white female, reporting she is cold and covered up in a blanket. HEENT: Oropharynx is clear. Pupils equally round. Neck is supple no lymphadenopathy or thyromegaly Cardiovascular regular rate and rhythm, 2/6 systolic murmur. Port is noted in chest without evidence of infection Lungs clear no wheezing or crackles Abdomen is soft, ostomy noted. Stool in bag. No obvious organomegaly Buttocks demonstrates small decubitus, right upper buttock with no evidence of infection Extremities no cyanosis clubbing or edema Lakhani in place Skin see findings above Neuro no obvious focal deficits Sepsis: Is patient septic: Yes Focused sepsis exam performed: Yes Date exam was performed: 06/29/19 Time exam was performed: 15:48 Data : 06/29/19 12:02 06/29/19 12:02 Other data: Blood cell count 15.4, hemoglobin 8.4, platelet count 277 Sodium 116, potassium 3.4, chloride 67, bicarb 32, BUN 73, creatinine 5.4 Magnesium 1.9 LFTs normal with the exception of alkaline phosphatase of 145 Lipase normal Albumin 3.3 Urine demonstrates 25-40 white blood cells, 0-4 red blood cells, 4+ bacteria, 2+ leukocyte Estrace Influenza a and B- CT abdomen and pelvis demonstrates no obvious abnormalities, no obvious hydronephrosis, 6 mm nodule right lung base, no evidence of obstruction Chest x-ray demonstrates no infiltrate, port left chest A&P Assessment and plan (1) Acute hyponatremia: Hypotonic hyponatremia. Will check cortisol. Otherwise IV fluids have been given in the emergency department. Admission to ICU Repeat BMP now, and at approximately 10 PM as well as in the morning. Monitor to make sure that this does not worsen, and slowly increases. Status: Acute (2) LUIS ALFREDO (acute kidney injury): Close follow-up of renal function If worsens, may need nephrology consultation Status: Acute (3) Severe protein-calorie malnutrition: Clear liquid diet, advance as tolerated Status: Acute (4) UTI (urinary tract infection): Secondary to multiple allergies will initiate Primaxin Blood culture, urine culture Status: Acute (5) Chronic anemia: Overall appears stable Status: Acute Additional A&P Information Nausea. This is been a recurrent problem with the patient. Certainly this may have been exacerbated from UTI, hyponatremia, renal failure. Hypotension, corrected with fluid challenge Sepsis. Hypotension is already corrected. Has leukocytosis, borderline tachycardia, elevated white blood cell count, I suspect she will have an elevated lactate, renal failure, source UTI. Check lactate Sacral pressure ulcer, no evidence of infection, present on admission. Continue wound care, reduce pressure. History of atrial fibrillation, appears to be in sinus rhythm. Will check EKG. History of Crohn's disease with ileostomy Underlying chronic kidney disease stage III Hyperaldosteronism with recurrent issues with hypokalemia and hypomagnesemia History of systolic congestive heart failure SCDs for DVT prophylaxis secondary to moderate anemia DNR/DNI but ICU admission okay after visiting with patient. Attestations Medical Necessity Statement*: Will need greater than 2 midnight stay for evaluation and treatment of sepsis Critical Care Time: 35 minutes spent in critical care time secondary to severe hypotension and presentation, severe acute renal failure, hyponatremia requiring serial blood draws and close monitoring of electrolytes. Critical Care Time ( min): 35 Coding Level of Care Code Acute Construction Skills Teacher for [facility] Fwd Diagnoses Acute hyponatremia E87.1 LUIS ALFREDO (acute kidney injury) N17.9 Severe protein-calorie malnutrition E43 UTI (urinary tract infection) N39.0 Chronic anemia D64.9
[2019-06-29 17:09] LABS: Anion Gap 19.4 (5-19); Blood Urea Nitrogen 61 mg/dL (8-23); Calcium 8.1 mg/dL (8.5-10.5); Carbon Dioxide 27 mmol/L (22-29); Chloride 78 mmol/L (98-107); Creatinine Clr Calc Pharmacy 6.3997; Glomerular Filtration Rate 10.8 mL/min (90-130); Glucose 99 mg/dL (65-115); Osmolality Calculated 251 mOsm/kg (285-295); Potassium 3.4 mmol/L (3.5-5.1); Sodium 121 mmol/L (136-145)
[2019-06-29] MEDS: sodium chloride 0.9% 500 ML 999 ML IV (18:00)
[2019-06-29] MEDS: gabapentin 300 mg Capsule PO (18:00)
[2019-06-29] MEDS: sodium chloride 0.9% 1,000 ML 100 ML IV (18:37)
--- NOTE | 2019-06-29 20:25 | PC.NURSE ---
1900 report rcvd at this time . pt in bed eyes closed. no s/s of distress. bp 70/42 fluid bolus infusing. will start levophed if needed to keep map> 50 per order. 1934 pt refuses to turn. screams at staff states she just wants to sleep. 1999 bp 60/38 called for levophed 2001 levophed started at 2 mcg/min. pt continues to refuse to turn. Colton George RN.
[2019-06-29] MEDS: venlafaxine ER (24HR) 37.5 mg Capsule PO (21:15)
[2019-06-29] MEDS: atorvastatin 40 mg Tablet 20 MG PO (21:15)
[2019-06-29] MEDS: dextrose 5%-sod chloride 0.45% 1,000 ML 75 ML IV (23:08)
[2019-06-29 23:22] LABS: Alanine Aminotransferase 10 U/L (0-33); Albumin Level 2.4 g/dL (3.5-5.2); Alkaline Phosphatase 93 IU/L (35-105); Anion Gap 18.4 (5-19); Aspartate Amino Transferase 22 U/L (0-32); Blood Urea Nitrogen 53 mg/dL (8-23); Calcium 7.4 mg/dL (8.5-10.5); Carbon Dioxide 22 mmol/L (22-29); Chloride 87 mmol/L (98-107); Globulin 2.4 g/dL (1.3-4.6); Glomerular Filtration Rate 12.1 mL/min (90-130); Glucose 125 mg/dL (65-115); Osmolality Calculated 260 mOsm/kg (285-295); Sodium 125 mmol/L (136-145); Total Bilirubin 0.4 mg/dL (0.15-1.2); Total Protein 4.8 g/dL (6.6-8.7)
[2019-06-29 23:25] LABS: Potassium 2.4 mmol/L (3.5-5.1)
--- NOTE | 2019-06-29 23:28 | PC.NURSE ---
k 2.4 per lab report discussed c dr. bonilla awaiting orders for k replacement. paul gee rn
[2019-06-29 23:40] LABS: Cortisol Random 18.04 mcg/dL (2.47-19.5)
[2019-06-30] VITALS (87 sets, daily range): BP systolic 75–114; BP diastolic 35–68; PULSE 65–95; RESP 7–31; TEMP 36.4; O2SAT 60–100
--- NOTE | 2019-06-30 02:39 | PC.NURSE ---
pt awake alert and oriented. reports plasencia is leaking. bed saturated c bright yellow urine . plasencia is dislodged. pt requests that plasencia remain out . assisted to bsc c min assistance. pt voided 300 cc s difficulty linen change and bath care done at this time. call light within reach. pt denies other needs. paul gee rn.
[2019-06-30] MEDS: famotidine 20 mg Tablet PO ×2 (08:06→16:59)
[2019-06-30] MEDS: gabapentin 300 mg Capsule PO ×2 (08:06→16:59)
[2019-06-30] MEDS: aspirin 81 mg EC Tablet PO (08:06)
[2019-06-30] MEDS: ondansetron 2 mg/ML SDV 2 mL 4 MG IVP (08:11)
[2019-06-30 09:05] LABS: Anion Gap 17.2 (5-19); Blood Urea Nitrogen 43 mg/dL (8-23); Calcium 8.6 mg/dL (8.5-10.5); Carbon Dioxide 23 mmol/L (22-29); Chloride 90 mmol/L (98-107); Glomerular Filtration Rate 16.7 mL/min (90-130); Glucose 151 mg/dL (65-115); Magnesium 1.5 mg/dL (1.7-2.3); Osmolality Calculated 265 mOsm/kg (285-295); Phosphorus 3.6 mg/dL (2.5-4.5); Potassium 3.2 mmol/L (3.5-5.1); Sodium 127 mmol/L (136-145)
[2019-06-30 09:52] LABS: Basophils # 0.1 10^3/uL (0.0-0.1); Basophils % 0.3 %; Eosinophils # 0.1 10^3/uL (0.0-0.8); Eosinophils % 0.2 %; Hematocrit 24.3 % (37.0-47.0); Hemoglobin 7.5 g/dL (11.5-15.3); Lymphocytes # 0.7 10^3/uL (0.8-4.8); Lymphocytes % 2.8 %; Mean Corpuscular HGB Conc 30.9 g/dL (30.0-36.0); Mean Corpuscular Hemoglobin 27.7 pg (28.0-34.0); Mean Corpuscular Volume 89.7 fL (81-99); Mean Platelet Volume 10.5 fL (7.4-10.4); Monocytes # 1.6 10^3/uL (0.2-0.9); Monocytes % 6.1 %; Neutrophils % 89.7 %; Nucleated Red Blood Cells % 0 %; Platelet Count 310 10^3/cmm (130-400); Red Blood Count 2.71 10^6/uL (4.1-5.3); Red Cell Distribution Width 17.5 % (12.1-15.1); White Blood Count 25.7 10^3/uL (4.0-10.0)
[2019-06-30] MEDS: dextrose 5% 1,000 ML 75 ML IV (11:03)
--- NOTE | 2019-06-30 11:15 | PM.PN ---
Subjective Subjective: Interval history: Janene reports she feels a little bit better. Wonders why she came in yesterday. Denies any significant abdominal pain today. Required norepinephrine. Medications: Reviewed: Yes Vitals/I&O/Wt Last Vital Signs Temp 98.8 F 06/29/19 11:46 Pulse 85 06/30/19 08:45 Resp 24 H 06/30/19 08:45 BP 93/50 06/30/19 08:45 Pulse Ox 96 06/30/19 08:00 06/29/19 06/30/19 06/30/19 22:59 06:59 14:59 Intake Total 1000 / 2000 244 / 2244 360 / 360 Output Total 800 / 800 200 / 1000 600 / 600 Balance 200 / 1200 44 / 1244 -240 / -240 Weight last 48 hrs Weight 31.751 kg Physical Exam Narrative: EXAM NARRATIVE: General exam no apparent distress Cardiovascular regular rate and rhythm, 2/6 systolic murmur. Port is noted in chest without evidence of infection Lungs clear no wheezing or crackles Abdomen is soft, ostomy noted. Stool in bag. No obvious organomegaly Buttocks demonstrates small decubitus, right upper buttock with no evidence of infection Extremities no cyanosis clubbing or edema Urinary Catheter Management^: Lakhani: Cath Placed During This Visit: yes Reason for Continuing Indwelling Catheter: Acute Urinary Retention or Obstruction Urinary Catheter Date of Insertion: 06/29/19 Urinary Catheter Time of Insertion: 13:00 Data : 06/30/19 08:04 06/30/19 08:04 Micro: Microbiology 06/29/19 16:20 Blood Culture - Preliminary Blood Gram Negative Rods 06/29/19 12:02 Blood Culture - Preliminary Blood Gram Negative Rods A&P Assessment and plan (1) Acute hyponatremia: Hypotonic hyponatremia. Cortisol level normal. Secondary to rapid correction of sodium D5W has been started. Repeat BMP at 1600, and adjust fluids as appropriate Status: Acute (2) LUIS ALFREDO (acute kidney injury): Close follow-up of renal function. This is improving Status: Acute (3) Severe protein-calorie malnutrition: Clear liquid diet, advance as tolerated if pressors can be decreased Status: Acute (4) UTI (urinary tract infection): Secondary to multiple allergies Primaxin was initiated. Since then blood cultures have started to grow gram-negative rods, identification and sensitivity pending. Await formal blood and urine culture results, ID and sensitivity Status: Acute (5) Chronic anemia: Slightly lower. Monitor closely. If continues to decrease consider transfusion. Status: Acute Additional A&P Information Nausea. This is been a recurrent problem with the patient. Certainly this may have been exacerbated from UTI, hyponatremia, renal failure. Hypotension, corrected with fluid challenge Sepsis. Bacteremic with gram-negative rods. Hypomagnesemia, supplement Hypokalemia, supplement Sacral pressure ulcer, no evidence of infection, present on admission. Continue wound care, reduce pressure. History of atrial fibrillation, appears to be in sinus rhythm. EKG did demonstrate sinus rhythm. History of Crohn's disease with ileostomy Underlying chronic kidney disease stage III Hyperaldosteronism with recurrent issues with hypokalemia and hypomagnesemia History of systolic congestive heart failure SCDs for DVT prophylaxis secondary to moderate anemia DNR/DNI but ICU admission okay after visiting with patient. Attestations Medical Necessity Statement*: Needs continued hospital stay for IV antibiotics, in the ICU secondary to requirement of pressors, IV antibiotics. Critical Care Time: 36 minutes spent in critical care time reviewing patient's status, norepinephrine dosing, IV antibiotics, considering underlying sepsis. Coding Level of Care Code Acute Sql Developer Dba for g Fwd Diagnoses Acute hyponatremia E87.1 LUIS ALFREDO (acute kidney injury) N17.9 Severe protein-calorie malnutrition E43 UTI (urinary tract infection) N39.0 Chronic anemia D64.9
[2019-06-30] MEDS: magnesium sulfate premix 2 GM/50 ML PIGGYBACK IV (12:01)
[2019-06-30] MEDS: potassium chloride premix 40 MEQ/100 ML PREMIX 25 MEQ IV (12:27)
[2019-06-30 17:20] LABS: Basophils % 0.2 %; Eosinophils # 0.1 10^3/uL (0.0-0.8); Eosinophils % 0.3 %; Hematocrit 24.3 % (37.0-47.0); Hemoglobin 7.6 g/dL (11.5-15.3); Lymphocytes # 0.6 10^3/uL (0.8-4.8); Lymphocytes % 3.5 %; Mean Corpuscular HGB Conc 31.3 g/dL (30.0-36.0); Mean Corpuscular Hemoglobin 28.7 pg (28.0-34.0); Mean Corpuscular Volume 91.7 fL (81-99); Mean Platelet Volume 10.4 fL (7.4-10.4); Monocytes # 1.2 10^3/uL (0.2-0.9); Neutrophils # 15.3 10^3/uL (1.8-7.7); Nucleated Red Blood Cells % 0 %; Platelet Count 268 10^3/cmm (130-400); Red Blood Count 2.65 10^6/uL (4.1-5.3); Red Cell Distribution Width 17.5 % (12.1-15.1); White Blood Count 17.4 10^3/uL (4.0-10.0)
[2019-06-30 17:53] LABS: Anion Gap 17.8 (5-19); Blood Urea Nitrogen 34 mg/dL (8-23); Calcium 8.7 mg/dL (8.5-10.5); Carbon Dioxide 21 mmol/L (22-29); Chloride 90 mmol/L (98-107); Glucose 151 mg/dL (65-115); Osmolality Calculated 260 mOsm/kg (285-295); Potassium 3.8 mmol/L (3.5-5.1); Sodium 125 mmol/L (136-145)
--- NOTE | 2019-06-30 20:44 | PC.NURSE ---
1899 bedside report rcvd at [facility] time vss per cm. levophed infusing @ 2mcg/min. 2009 pt requesting to get oob to ambulate. pt ambulated c min support around half of the unit. 2019 pt refused all hs meds states she doesnt take them at home and doesnt need them. fluids decreased to 50 per mar. pt requesting to just sleep at this time. Colton gee.
[2019-07-01] VITALS (106 sets, daily range): BP systolic 69–125; BP diastolic 19–95; PULSE 74–121; RESP 8–26; TEMP 36.3–36.4; O2SAT 64–100
[2019-07-01] MEDS: acetaminophen 325 mg Tablet 650 MG PO ×2 (02:46→20:56)
[2019-07-01] MEDS: guaiFENesin 100 mg/5 mL UDC 10 mL 400 MG PO ×2 (02:47→22:30)
--- NOTE | 2019-07-01 02:51 | PC.NURSE ---
pt screaming and crying reports lynch and cough. unable to rate lynch discussed c dr bonilla order for robitussin and tylenol rcvd and given . chau.
[2019-07-01 05:03] LABS: Basophils % 0.2 %; Eosinophils # 0.1 10^3/uL (0.0-0.8); Eosinophils % 1.1 %; Hematocrit 21.6 % (37.0-47.0); Hemoglobin 6.8 g/dL (11.5-15.3); Lymphocytes # 0.3 10^3/uL (0.8-4.8); Lymphocytes % 2.4 %; Mean Corpuscular HGB Conc 31.5 g/dL (30.0-36.0); Mean Corpuscular Hemoglobin 28.2 pg (28.0-34.0); Mean Corpuscular Volume 89.6 fL (81-99); Mean Platelet Volume 10.5 fL (7.4-10.4); Monocytes # 0.5 10^3/uL (0.2-0.9); Monocytes % 3.7 %; Neutrophils # 11.3 10^3/uL (1.8-7.7); Neutrophils % 91.9 %; Nucleated Red Blood Cells % 0 %; Platelet Count 223 10^3/cmm (130-400); Red Blood Count 2.41 10^6/uL (4.1-5.3); Red Cell Distribution Width 17.2 % (12.1-15.1); White Blood Count 12.3 10^3/uL (4.0-10.0)
[2019-07-01] MEDS: dextrose 5% 1,000 ML 75 ML IV (05:05)
[2019-07-01 05:22] LABS: Anion Gap 15.3 (5-19); Blood Urea Nitrogen 29 mg/dL (8-23); Calcium 8.7 mg/dL (8.5-10.5); Carbon Dioxide 21 mmol/L (22-29); Chloride 91 mmol/L (98-107); Glomerular Filtration Rate 26.1 mL/min (90-130); Glucose 123 mg/dL (65-115); Magnesium 1.6 mg/dL (1.7-2.3); Osmolality Calculated 256 mOsm/kg (285-295); Phosphorus 1.9 mg/dL (2.5-4.5); Potassium 3.3 mmol/L (3.5-5.1); Sodium 124 mmol/L (136-145)
--- NOTE | 2019-07-01 07:52 | PC.NURSE ---
up to bsc with assist .. empty ostomy herself
[2019-07-01] MEDS: aspirin 81 mg EC Tablet PO (08:31)
[2019-07-01] MEDS: famotidine 20 mg Tablet PO ×2 (08:31→17:10)
[2019-07-01] MEDS: gabapentin 300 mg Capsule PO ×2 (08:31→17:11)
--- NOTE | 2019-07-01 09:06 | PC.NURSE ---
weaning levophed at this time
[2019-07-01] MEDS: magnesium sulfate premix 2 GM/50 ML PIGGYBACK IV (09:58)
--- NOTE | 2019-07-01 13:05 | PM.PN ---
Subjective Subjective: Interval history: Janene reports she is doing okay. She has a cough and would like something for this. No significant abdominal pain currently. No blood in stool or black or tarry stools. Medications: Reviewed: Yes Vitals/I&O/Wt Last Vital Signs Temp 97.4 F L 07/01/19 12:46 Pulse 82 07/01/19 12:46 Resp 22 H 07/01/19 12:46 BP 85/44 07/01/19 12:46 Pulse Ox 66 L 07/01/19 11:10 06/30/19 07/01/19 07/01/19 22:59 06:59 14:59 Intake Total 550 / 2092.177 0220 / 2303.373 400 / 400 Output Total 1250 / 2650 1250 / 1250 Balance -700 / -8787.759 5135 / -346.627 -850 / -850 Physical Exam Narrative: EXAM NARRATIVE: General exam no apparent distress, conversant, requesting something for cough Cardiovascular regular rate and rhythm, 2/6 systolic murmur. Port is noted in chest without evidence of infection Lungs clear no wheezing or crackles Abdomen is soft, ostomy noted. Stool in bag. No obvious organomegaly Extremities no cyanosis clubbing or edema Urinary Catheter Management^: Lakhani: Cath Placed During This Visit: yes Reason for Continuing Indwelling Catheter: Acute Urinary Retention or Obstruction Urinary Catheter Date of Insertion: 06/29/19 Urinary Catheter Time of Insertion: 13:00 Data : 07/01/19 04:20 07/01/19 04:20 Micro: Microbiology 06/29/19 14:40 Urine Culture - Final Urine,Clean Catch Escherichia coli 07/01/19 10:15 Occult Blood (FIT) - Final Stool 07/01/19 10:24 Blood Culture - Preliminary Blood SPECIMEN COLLECTED 06/29/19 16:20 Blood Culture - Preliminary Blood Gram Negative Rods 06/29/19 12:02 Blood Culture - Preliminary Blood Gram Negative Rods A&P Assessment and plan (1) Acute hyponatremia: Hypotonic hyponatremia. Cortisol level normal. Sodium level is still low but stabilized. Discontinue D5W, follow sodium level with repeat level tomorrow Status: Acute (2) LUIS ALFREDO (acute kidney injury): Continues to improve Status: Acute (3) Severe protein-calorie malnutrition: Diet has been advanced Status: Acute (4) UTI (urinary tract infection): Secondary to multiple allergies Primaxin was initiated. Urine and blood are both growing gram-negative rods. Identification and sensitivity pending Status: Acute (5) Chronic anemia: Hemoglobin continues to decrease. With hypotension and patient's complaints of tiredness today we will transfuse 1 unit Status: Acute Additional A&P Information Nausea. This is been a recurrent problem with the patient. Certainly this may have been exacerbated from UTI, hyponatremia, renal failure. She denies nausea today Hypotension, corrected with fluid challenge Sepsis. Bacteremic with gram-negative rods. Hypomagnesemia, supplement Hypophosphatemia, supplement Hypokalemia, supplement Sacral pressure ulcer, no evidence of infection, present on admission. Continue wound care, reduce pressure. History of atrial fibrillation, appears to be in sinus rhythm. EKG did demonstrate sinus rhythm. History of Crohn's disease with ileostomy Underlying chronic kidney disease stage III Hyperaldosteronism with recurrent issues with hypokalemia and hypomagnesemia History of systolic congestive heart failure SCDs for DVT prophylaxis secondary to moderate anemia DNR/DNI but ICU admission okay after visiting with patient. Attestations Medical Necessity Statement*: Needs continued hospital stay for close follow-up of bacteremia, sepsis and continued treatment with both IV antibiotics Coding Level of Care Code Acute Electrical Integrator for Chg Fwd Diagnoses Acute hyponatremia E87.1 LUIS ALFREDO (acute kidney injury) N17.9 Severe protein-calorie malnutrition E43 UTI (urinary tract infection) N39.0 Chronic anemia D64.9
--- NOTE | 2019-07-01 20:26 | PC.NURSE ---
1900 bedside report rcvd at this time. pt awake watching tv. no s/s of hypotension. pt reports she had a decent day 1 unit prbc infused . pt oob to bsc . pt refuses assistance back to bed. no distressnoted. 1934 pt oob to bsc . 1999 pt refuses hs meds states she doesnt take those at home and doesnt need them. 2014 assessment per flowsheet. 2029 helping hands nurse to give bed bath and linen change per pt request. chau.
[2019-07-02] VITALS (98 sets, daily range): BP systolic 71–120; BP diastolic 41–86; PULSE 74–102; RESP 7–31; TEMP 36.4–36.6; O2SAT 75–100
[2019-07-02 05:24] LABS: Basophils # 0.1 10^3/uL (0.0-0.1); Basophils % 0.3 %; Eosinophils # 0.3 10^3/uL (0.0-0.8); Eosinophils % 1.7 %; Hematocrit 30.4 % (37.0-47.0); Hemoglobin 9.7 g/dL (11.5-15.3); Lymphocytes % 6.9 %; Mean Corpuscular HGB Conc 31.9 g/dL (30.0-36.0); Mean Corpuscular Hemoglobin 29.1 pg (28.0-34.0); Mean Corpuscular Volume 91.3 fL (81-99); Monocytes # 1.8 10^3/uL (0.2-0.9); Monocytes % 11.6 %; Neutrophils # 11.8 10^3/uL (1.8-7.7); Neutrophils % 78.6 %; Nucleated Red Blood Cells % 0 %; Platelet Count 214 10^3/cmm (130-400); Red Blood Count 3.33 10^6/uL (4.1-5.3); White Blood Count 15.1 10^3/uL (4.0-10.0)
[2019-07-02 06:45] LABS: Anion Gap 16.7 (5-19); Blood Urea Nitrogen 23 mg/dL (8-23); Calcium 8.5 mg/dL (8.5-10.5); Carbon Dioxide 18 mmol/L (22-29); Chloride 89 mmol/L (98-107); Glomerular Filtration Rate 37.2 mL/min (90-130); Glucose 121 mg/dL (65-115); Magnesium 1.8 mg/dL (1.7-2.3); Osmolality Calculated 248 mOsm/kg (285-295); Phosphorus 2.3 mg/dL (2.5-4.5); Potassium 3.7 mmol/L (3.5-5.1); Sodium 120 mmol/L (136-145)
--- NOTE | 2019-07-02 08:13 | P.PN_ITS ---
Subjective Subjective: Interval history: Janene reports she is a little bit dizzy but otherwise feels okay. No significant abdominal pain. Norepinephrine was reinitiated last night for lower blood pressures. Medications: Reviewed: Yes Vitals/I&O/Wt Last Vital Signs Temp 97.4 F L 07/01/19 16:15 Pulse 80 07/02/19 04:30 Resp 11 L 07/02/19 04:30 BP 85/53 07/02/19 04:30 Pulse Ox 100 07/02/19 04:30 07/01/19 07/02/19 07/02/19 22:59 06:59 14:59 Intake Total 700 / 1100 300 / 1400 Output Total 1950 / 3200 1200 / 4400 Balance -1250 / -2100 -900 / -3000 Physical Exam Narrative: EXAM NARRATIVE: General exam no apparent distress Cardiovascular regular in rhythm without murmur Lungs clear Abdomen is soft with positive bowel sounds. Ostomy noted Extremities no cyanosis clubbing or edema Urinary Catheter Management^: Lakhani: Cath Placed During This Visit: yes Reason for Continuing Indwelling Catheter: Acute Urinary Retention or Obstruction Urinary Catheter Date of Insertion: 06/29/19 Urinary Catheter Time of Insertion: 13:00 Data : 07/02/19 04:51 07/02/19 04:51 Micro: Microbiology 07/01/19 13:52 Blood Culture - Preliminary Blood SPECIMEN COLLECTED 06/29/19 14:40 Urine Culture - Final Urine,Clean Catch Escherichia coli 07/01/19 10:15 Occult Blood (FIT) - Final Stool 07/01/19 10:24 Blood Culture - Preliminary Blood SPECIMEN COLLECTED A&P Assessment and plan (1) Acute hyponatremia: Hypotonic hyponatremia. Cortisol level normal. Sodium level has decreased. She had quite a bit of output yesterday. Will initiate normal saline at 50 cc an hour and repeat her sodium this afternoon. Consider sodium tablets Status: Acute (2) LUIS ALFREDO (acute kidney injury): Significantly improved Status: Acute (3) Severe protein-calorie malnutrition: Diet has been advanced Status: Acute (4) UTI (urinary tract infection): Secondary to multiple allergies Primaxin was initiated. Urine and blood are both growing gram-negative rods. Identification and sensitivity still pending Pharmacy adjusting dose today for improvement in renal function. Status: Acute (5) Chronic anemia: Hemoglobin continues to decrease. With hypotension and patient's complaints of tiredness today we will transfuse 1 unit Status: Acute Additional A&P Information Nausea. This is been a recurrent problem with the patient. Certainly this may have been exacerbated from UTI, hyponatremia, renal failure. She denies nausea today Hypotension, recurred last night and back on norepinephrine. Trying to achieve a mean of 60 or greater Sepsis. Bacteremic with gram-negative rods. Still awaiting sensitivities. Clinically improved. Abdominal pelvis CT limited but no obvious abscess Hypomagnesemia, normal today Hypophosphatemia, supplemented yesterday Hypokalemia, normal today Sacral pressure ulcer, no evidence of infection, present on admission. Continue wound care, reduce pressure. History of atrial fibrillation, appears to be in sinus rhythm. EKG did demonstrate sinus rhythm. History of Crohn's disease with ileostomy Underlying chronic kidney disease stage III Hyperaldosteronism with recurrent issues with hypokalemia and hypomagnesemia. Magnesium and potassium levels normal today. History of systolic congestive heart failure SCDs for DVT prophylaxis secondary to moderate anemia DNR/DNI but ICU admission okay after visiting with patient. Attestations Medical Necessity Statement*: Needs continued hospital stay for IV pressors, IV antibiotics secondary to sepsis Critical Care Time: 31 minutes spent in critical care time interviewing the patient, exam, review of norepinephrine doses and need, IV antibiotic regimen, cultures. Coding Level of Care Code Acute Government Relations Analyst for Rudolph [employer] Diagnoses Acute hyponatremia E87.1 LUIS ALFREDO (acute kidney injury) N17.9 Severe protein-calorie malnutrition E43 UTI (urinary tract infection) N39.0 Chronic anemia D64.9
[2019-07-02] MEDS: sodium chloride 0.9% 1,000 ML 50 ML IV (09:25)
[2019-07-02] MEDS: famotidine 20 mg Tablet PO ×2 (09:26→17:23)
[2019-07-02] MEDS: guaiFENesin-dextromethorphan UDC 10 mL 5 ML PO ×2 (09:26→21:12)
[2019-07-02] MEDS: aspirin 81 mg EC Tablet PO (09:26)
[2019-07-02] MEDS: gabapentin 300 mg Capsule PO ×2 (09:26→17:23)
--- NOTE | 2019-07-02 15:02 | PC.SOCIAL ---
IMM Page [address] [facility] provided to patient with [facility] phone number. Initialed, dated, and timed and placed in chart.
[2019-07-02 16:28] LABS: Anion Gap 18.3 (5-19); Blood Urea Nitrogen 20 mg/dL (8-23); Calcium 8.7 mg/dL (8.5-10.5); Carbon Dioxide 17 mmol/L (22-29); Chloride 93 mmol/L (98-107); Glomerular Filtration Rate 34.3 mL/min (90-130); Glucose 79 mg/dL (65-115); Osmolality Calculated 253 mOsm/kg (285-295); Potassium 4.3 mmol/L (3.5-5.1); Sodium 124 mmol/L (136-145)
[2019-07-02] MEDS: acetaminophen 325 mg Tablet 650 MG PO ×2 (17:28→21:12)
[2019-07-02] MEDS: ondansetron 2 mg/ML SDV 2 mL 4 MG IVP (18:58)
--- NOTE | 2019-07-02 20:10 | PC.NURSE ---
2000 Insurance company called and requested patients antibiotic to see if insurance would be able to cover antibiotic coverage when patient is discharged from facility. Nurse informed caller that I am not legally obligated to give that information over the phone. called then proceed to ask if could have information. caller hung up before nurse could answer question.
[2019-07-02] MEDS: atorvastatin 40 mg Tablet 20 MG PO (21:11)
[2019-07-02] MEDS: venlafaxine ER (24HR) 37.5 mg Capsule PO (21:12)
[2019-07-03] VITALS (59 sets, daily range): BP systolic 73–114; BP diastolic 45–72; PULSE 73–95; RESP 3–22; O2SAT 72–100
[2019-07-03 05:00] LABS: Basophils # 0.1 10^3/uL (0.0-0.1); Basophils % 0.5 %; Eosinophils # 0.2 10^3/uL (0.0-0.8); Eosinophils % 1.8 %; Hematocrit 32.1 % (37.0-47.0); Hemoglobin 10.1 g/dL (11.5-15.3); Lymphocytes # 0.9 10^3/uL (0.8-4.8); Lymphocytes % 7.6 %; Mean Corpuscular HGB Conc 31.5 g/dL (30.0-36.0); Mean Corpuscular Hemoglobin 28.3 pg (28.0-34.0); Mean Corpuscular Volume 89.9 fL (81-99); Mean Platelet Volume 10.2 fL (7.4-10.4); Monocytes # 0.9 10^3/uL (0.2-0.9); Monocytes % 7.9 %; Neutrophils # 9.5 10^3/uL (1.8-7.7); Neutrophils % 81.3 %; Nucleated Red Blood Cells % 0 %; Platelet Count 233 10^3/cmm (130-400); Red Blood Count 3.57 10^6/uL (4.1-5.3); Red Cell Distribution Width 15.9 % (12.1-15.1); White Blood Count 11.7 10^3/uL (4.0-10.0)
[2019-07-03 05:20] LABS: Alanine Aminotransferase 9 U/L (0-33); Albumin Level 2.6 g/dL (3.5-5.2); Alkaline Phosphatase 96 IU/L (35-105); Anion Gap 15.8 (5-19); Aspartate Amino Transferase 15 U/L (0-32); Blood Urea Nitrogen 18 mg/dL (8-23); Calcium 8.7 mg/dL (8.5-10.5); Carbon Dioxide 17 mmol/L (22-29); Chloride 96 mmol/L (98-107); Globulin 2.6 g/dL (1.3-4.6); Glomerular Filtration Rate 44.4 mL/min (90-130); Glucose 96 mg/dL (65-115); Magnesium 1.4 mg/dL (1.7-2.3); Osmolality Calculated 256 mOsm/kg (285-295); Potassium 3.8 mmol/L (3.5-5.1); Sodium 125 mmol/L (136-145); Total Bilirubin 0.4 mg/dL (0.15-1.2); Total Protein 5.2 g/dL (6.6-8.7)
--- NOTE | 2019-07-03 07:40 | USCV_ITS ---
Janene Gallegos Age: 69 Gender: F : 1950 Exam Date: 07/03/2019 13:26 Ordering Phys: Mango Ge MD Technologist: Hope Menendez Exam Location: [facility] [place] Indication: Bacteremia BP: 100 / 58 HR: 74 Rhythm: Sinus Technical Quality: Fair MEASUREMENTS (Male / Female) Normal Values 2D ECHO LV Diastolic Diameter PLAX 3.6 cm 4.2 - 5.9 / 3.9 - 5.3 cm LV Systolic Diameter PLAX 3.1 cm LV Chamber Size 2.3 cm IVS Diastolic Thickness 0.9 cm 0.6 - 1.0 / 0.6 - 0.9 cm IVS Systolic Thickness 1.1 cm LVPW Diastolic Thickness 0.8 cm 0.6 - 1.0 / 0.6 - 0.9 cm LVPW Systolic Thickness 0.9 cm RV Chamber Size 1.6 cm LVOT Diameter 2.0 cm LV Ejection Fraction 2D Teich 29.7 % LV Ejection Fraction MOD 2C 42.4 % LV Ejection Fraction 2C AL 42.7 % LA Diameter 2.6 cm LA Width 3.5 cm LA Height 2.9 cm RA Width 3.0 cm RA Height 3.4 cm Aorta at Sinotubular Diameter 2.1 cm M-MODE LV Diastolic Diameter MM 3.7 cm 4.2 - 5.9 / 3.9 - 5.3 cm LV Systolic Diameter MM 3.1 cm LV Ejection Fraction MM Teich 32.4 % IVS Diastolic Thickness MM 0.7 cm 0.6 - 1.0 / 0.6 - 0.9 cm IVS Systolic Thickness MM 0.8 cm LVPW Diastolic Thickness MM 0.8 cm 0.6 - 1.0 / 0.6 - 0.9 cm LVPW Systolic Thickness MM 0.9 cm RV Diastolic Diameter MM 1.2 cm Aortic Annulus Diameter 2.8 cm LA Ao Ratio MM 0.9 MV E Point Septal Separation 0.5 cm DOPPLER AV Peak Velocity 103.0 cm/s LVOT Peak Velocity 62.0 cm/s AV Area Cont Eq vti 2.1 cm squared AV Area Cont Eq pk 1.9 cm squared MV Area PHT 4.1 cm squared Mitral E to A Ratio 0.9 MV E' Velocity 6.0 cm/s Mitral E to MV E' Ratio 11.9 Mitral E to LV E' Lateral Ratio 9.8 Mitral E to LV E' Septal Ratio 15.1 TR Peak Velocity 203.0 cm/s TR Peak Gradient 16.5 mmHg TR Mean Velocity 145.3 cm/s TR Mean Gradient 9.0 mmHg TR Velocity Time Integral 47.2 cm TV Peak E Velocity 37.0 cm/s Right Atrial Pressure 3.0 mmHg Pulmonary Artery Systolic Pressu 19.5 mmHg PV Peak Velocity 50.0 cm/s RV Acceleration Time 0.1 s RV Ejection Time 0.3 s RV AcT/ET 0.5 FINDINGS Left Ventricle Normal left ventricular cavity size. Moderately decreased left ventricular systolic function.Left ventricular ejection fraction is estimated at 45 %. Global left ventricular hypokinesis. Grade I/IV diastolic dysfunction (abnormal relaxation filling pattern), normal to mildly elevated filling pressures. Right Ventricle The right ventricle is normal in size and function. Right Atrium The right atrium is normal in size. Left Atrium The left atrium is normal in size. Mitral Valve Structurally normal mitral valve without significant stenosis or prolapse. There is no mitral regurgitation. Aortic Valve Structurally normal aortic valve without significant sclerosis or stenosis. There is no aortic regurgitation. Tricuspid Valve Moderate tricuspid valve regurgitation. Pulmonic Valve Trace pulmonary valve regurgitation. Pericardium Normal pericardium without effusion. Aorta Normal ascending aorta dimension. CONCLUSIONS 1-Normal left ventricular cavity size. Moderately decreased left ventricular systolic function.Left ventricular ejection fraction is estimated at 45 %. Global left ventricular hypokinesis. Grade I/IV diastolic dysfunction (abnormal relaxation filling pattern), normal to mildly elevated filling pressures. 2-Moderate tricuspid valve regurgitation. 3-There is no pericardial effusion. 4-Pulmonary artery systolic pressure is within normal limits. 5-Right atrial pressure is around 5 mm of mercury. 6-When compared to the prior echocardiogram dated 05/02/2019 left ventricular ejection fraction has moderately reduced from normal 70% to 45% now. Deepak Mendoza MD (Electronically Signed) Final Date: 03 Jul 2019 17:01 S
[2019-07-03] MEDS: magnesium sulfate premix 2 GM/50 ML PIGGYBACK IV (08:22)
[2019-07-03] MEDS: ondansetron 2 mg/ML SDV 2 mL 4 MG IVP (08:26)
[2019-07-03] MEDS: sodium chloride 0.9% 1,000 ML 50 ML IV (08:27)
--- NOTE | 2019-07-03 08:42 | PC.NURSE ---
C/O NAUSEA AT THIS TIME medication given
[2019-07-03] MEDS: aspirin 81 mg EC Tablet PO (09:44)
[2019-07-03] MEDS: famotidine 20 mg Tablet PO ×2 (09:44→17:09)
[2019-07-03] MEDS: gabapentin 300 mg Capsule PO ×2 (09:44→17:09)
[2019-07-03] MEDS: guaiFENesin 100 mg/5 mL UDC 10 mL 400 MG PO (09:45)
--- NOTE | 2019-07-03 12:14 | PM.PN ---
Subjective Subjective: Interval history: Janene reports she is doing okay today. She denies any specific nausea. She has been able to eat a little bit. Medications: Reviewed: Yes Vitals/I&O/Wt Last Vital Signs Temp 97.8 F 07/02/19 20:00 Pulse 82 07/03/19 08:00 Resp 9 L 07/03/19 08:00 BP 89/48 07/03/19 08:00 Pulse Ox 100 07/03/19 08:00 07/02/19 07/03/19 07/03/19 22:59 06:59 14:59 Intake Total 400 / 860 1200 / 2060 Balance 400 / -1290 1200 / -90 Physical Exam Narrative: EXAM NARRATIVE: General exam no apparent distress Cardiovascular regular in rhythm without murmur. Port without erythema Lungs clear Abdomen is soft with positive bowel sounds. Ostomy noted Extremities no cyanosis clubbing or edema Urinary Catheter Management^: Lakhani: Cath Placed During This Visit: yes Reason for Continuing Indwelling Catheter: Acute Urinary Retention or Obstruction Urinary Catheter Date of Insertion: 06/29/19 Urinary Catheter Time of Insertion: 13:00 Data : 07/03/19 04:33 07/03/19 04:33 Micro: Microbiology 07/01/19 13:52 Blood Culture - Preliminary Blood NEGATIVE TO DATE 06/29/19 12:02 Blood Culture - Preliminary Blood Serratia marcescens 07/01/19 10:24 Blood Culture - Preliminary Blood NEGATIVE TO DATE A&P Assessment and plan (1) Acute hyponatremia: Hypotonic hyponatremia. Cortisol level normal. Sodium level stable, improved with saline infusion. Has chronic hyponatremia Will try salt tab twice daily. Status: Acute (2) LUIS ALFREDO (acute kidney injury): Significantly improved Status: Acute (3) Severe protein-calorie malnutrition: Diet has been advanced Status: Acute (4) UTI (urinary tract infection): Secondary to multiple allergies Primaxin was initiated. Blood grew Serratia, sensitive to carbapems. Urine grew E. coli, sensitive to carbapems Status: Acute (5) Chronic anemia: Transfuse 1 unit of packed red blood cells. Hemoglobin improved. Stool Hemoccult negative. Status: Acute Additional A&P Information Nausea. This is been a recurrent problem with the patient. Certainly this may have been exacerbated from UTI, hyponatremia, renal failure. This is significantly improved today Hypotension, norepinephrine discontinued this morning. Hopefully this will no longer be needed Sepsis. Blood grew Serratia. Repeat culture negative. On Primaxin currently. Planning on 2 weeks of IV antibiotics minimum, following negative culture Invanz. Clinically improved. Abdominal pelvis CT limited but no obvious abscess. Does have port, but patient will be and has been very resistant for its removal. Echocardiogram will be ordered but at this point will plan on 2 weeks IV antibiotics, close monitoring following for any recurrence of bacteremia. Not planning on SHAKILA at this time, but I will discuss with her that option likely tomorrow.. She has had Serratia bacteremia before and an infected PICC line but this was in 2013. CRP and sedimentation rate tomorrow morning. Hypomagnesemia, supplement Hypokalemia, normal today Sacral pressure ulcer, no evidence of infection, present on admission. Continue wound care, reduce pressure. History of atrial fibrillation, appears to be in sinus rhythm. EKG did demonstrate sinus rhythm. History of Crohn's disease with ileostomy Underlying chronic kidney disease stage III Hyperaldosteronism with recurrent issues with hypokalemia and hypomagnesemia. Supplementing as needed History of systolic congestive heart failure SCDs for DVT prophylaxis secondary to moderate anemia DNR/DNI but ICU admission okay after visiting with patient. Attestations Medical Necessity Statement*: Needs continued hospitalization for IV antibiotics secondary to bacteremia Coding Level of Care Code Acute Cdl Dedicated Truck Driver for Chg Fwd Diagnoses Acute hyponatremia E87.1 LUIS ALFREDO (acute kidney injury) N17.9 Severe protein-calorie malnutrition E43 UTI (urinary tract infection) N39.0 Chronic anemia D64.9
[2019-07-03] MEDS: sodium chloride 1 gm Tablet PO (17:09)
[2019-07-03] MEDS: atorvastatin 40 mg Tablet 20 MG PO (21:06)
[2019-07-03] MEDS: venlafaxine ER (24HR) 37.5 mg Capsule PO (21:06)
[2019-07-04 01:02] VITALS: BP 104/58; PULSE 95; RESP 11
[2019-07-04 04:18] VITALS: BP 96/52; PULSE 85; RESP 8
[2019-07-04 05:26] LABS: Basophils # 0.1 10^3/uL (0.0-0.1); Basophils % 0.5 %; Eosinophils # 0.2 10^3/uL (0.0-0.8); Eosinophils % 2.3 %; Hematocrit 30.4 % (37.0-47.0); Hemoglobin 9.6 g/dL (11.5-15.3); Lymphocytes # 0.7 10^3/uL (0.8-4.8); Lymphocytes % 7.3 %; Mean Corpuscular HGB Conc 31.6 g/dL (30.0-36.0); Mean Corpuscular Hemoglobin 28.4 pg (28.0-34.0); Mean Corpuscular Volume 89.9 fL (81-99); Monocytes # 0.8 10^3/uL (0.2-0.9); Monocytes % 7.4 %; Neutrophils # 8.3 10^3/uL (1.8-7.7); Neutrophils % 81.3 %; Nucleated Red Blood Cells % 0 %; Platelet Count 220 10^3/cmm (130-400); Red Blood Count 3.38 10^6/uL (4.1-5.3); Red Cell Distribution Width 15.9 % (12.1-15.1); White Blood Count 10.2 10^3/uL (4.0-10.0)
[2019-07-04 05:44] LABS: Alanine Aminotransferase 10 U/L (0-33); Albumin Level 2.4 g/dL (3.5-5.2); Alkaline Phosphatase 95 IU/L (35-105); Aspartate Amino Transferase 16 U/L (0-32); Blood Urea Nitrogen 15 mg/dL (8-23); Calcium 8.4 mg/dL (8.5-10.5); Carbon Dioxide 17 mmol/L (22-29); Chloride 105 mmol/L (98-107); Globulin 2.7 g/dL (1.3-4.6); Glomerular Filtration Rate 61.9 mL/min (90-130); Glucose 97 mg/dL (65-115); Magnesium 1.5 mg/dL (1.7-2.3); Osmolality Calculated 264 mOsm/kg (285-295); Sodium 129 mmol/L (136-145); Total Bilirubin 0.3 mg/dL (0.15-1.2); Total Protein 5.1 g/dL (6.6-8.7)
[2019-07-04 06:54] LABS: Erythrocyte Sedimentation Rate 11 mm/hr (0-15)
[2019-07-04 07:54] VITALS: BP 99/50; PULSE 103; RESP 10; TEMP 36.6; O2SAT 99
[2019-07-04] MEDS: aspirin 81 mg EC Tablet PO (09:21)
[2019-07-04] MEDS: gabapentin 300 mg Capsule PO (09:22)
[2019-07-04] MEDS: sodium chloride 1 gm Tablet PO (09:22)
[2019-07-04] MEDS: famotidine 20 mg Tablet PO (09:22)
[2019-07-04] MEDS: sodium chloride 0.9% 1,000 ML 50 ML IV (09:23)
[2019-07-04 12:00] VITALS: BP 102/63; PULSE 88; RESP 8; TEMP 36.4
--- NOTE | 2019-07-04 12:00 | PC.SOCIAL ---
IMM Updated Page 2 of IMM updated and given to patient. Initialed, dated, and timed and placed back in chart.
--- NOTE | 2019-07-04 13:50 | PC.NURSE ---
PATIENT PUT JEM LIGHT ON AN REQUESTED TO BE DISCONNECTED FROM EVERYTHING AND HER PORT ACCESS BE REMOVED. iT WAS EXPLAINED TO THE PATIENT THAT THERE WAS NO DISCHARGE ORDERS IN HER CHART. PATIENT STATED THAT SHE WAS LEAVING WHEN HER GOT HERE AND SHE DID NOT CARE IF THE DOCTOR HAD NOT DISCHARGED HER YET. DR. LLOYD NOTIFIED AND GAVE VERBAL ORDER TO REMOVE PORT ACCESS AND REMOVE LINES.
--- NOTE | 2019-07-04 14:23 | PM.DCS ---
Discharge Providers Date of Admission: 06/29/19 15:32 Date of Discharge: July 04, 2019 Attending Provider at Admission: Mango Ge MD Attending Provider at Discharge: Joana Cody DO Primary Care Provider: Veda Gilman MD Diagnoses at Discharge Discharge Diagnosis (1) Acute hyponatremia: Status: Acute (2) LUIS ALFREDO (acute kidney injury): Status: Acute (3) Severe protein-calorie malnutrition: Status: Acute (4) UTI (urinary tract infection): Status: Acute (5) Chronic anemia: Status: Acute Reason for Visit Reason for Visit: Reason For Visit: N/V Hospital Course Hospital Course: Patient was seen and evaluated in the emergency department due to nausea vomiting. She was reported to have acute kidney injury and hyponatremia that improved with IV fluids. Patient had history of this in the past and has high output ostomy which could be contributing to her acute kidney injury. She was given IV fluids and renal function continued to improve. She was started on Primaxin due to concern for UTI. She was noted to have bacteremia and recommendation was for Port-A-Cath removal, however patient and her declined and despite risk of continuing to keep Port-A-Cath in place they did not want this removed due to his recent placement. Patient verbalized understanding that this could contribute to increased morbidity and mortality however she did not want Port-A-Cath removed and chose to continue with IV antibiotics. Patient was continued on IV Carbapenem. Patient's nausea and vomiting resolved and on date of discharge she reported that she was feeling much better with no concerns. She stated that she was back to her baseline. Patient had improvement in her blood pressure and she was taken off of Levophed. She remained in sinus rhythm and renal function continued to improve. On date of discharge she was awake and alert in bed and denied any concerns requesting discharge to home. Discussed with patient plan to continue with IV antibiotics in the outpatient setting, Invanz, patient verbalized understanding and agreed with plan. Plan was for patient to have dose prior to discharge however she refused to stay any longer and was demanding discharge to home at that time. Patient was then ultimately discharged to home with home health to continue on IV antibiotic therapy. arrived to transport her to home. Physical Exam Const: COMMON NORMALS: oriented x3 and alert GENERAL APPEARANCE: cooperative NUTRITIONAL APPEARANCE: cachectic, thin and underweight ORIENTATION/CONSCIOUSNESS: Yes awake, Yes oriented to person, Yes oriented to place and Yes oriented to time HENMT: COMMON NORMALS: normocephalic and head/scalp atraumatic HEAD & SCALP: normocephalic and atraumatic Eye: COMMON NORMALS: PERRL PUPIL: Yes PERRL Neck/C-Spine: COMMON NORMALS: supple GENERAL: Yes normal visual inspection Resp: COMMON NORMALS: normal respiratory effort and clear to auscultation bilaterally EFFORT & INSPECTION: Yes able to speak in complete sentences AUSCULTATION: clear to auscultation bilaterally, no rhonchi and no wheezes Cardio: COMMON NORMALS: regular rate, regular rhythm and no murmurs RATE: regular rate RHYTHM: regular rhythm GI: COMMON NORMALS: soft to palpation and non-tender INSPECTION: No abdominal distension AUSCULTATION: Yes normoactive bowel sounds PALPATION: Yes soft OTHER: Ostomy in place with good output, no surrounding erythema Extremity: COMMON NORMALS: no clubbing, cyanosis or edema and no calf tenderness Neuro: COMMON NORMALS: oriented x3, CN's II-XII intact bilaterally, moves all extremities and no focal motor deficits SENSORIUM/ORIENTATION: Yes alert, Yes oriented to person, Yes oriented to place and Yes oriented to time SPEECH: speech normal Psych: COMMON NORMALS: mental status grossly normal and cooperative Skin: COMMON NORMALS: no rashes or lesions noted GENERAL SKIN EXAM: no rashes or lesions noted Urinary Catheter Management^: Lakhani: Cath Placed During This Visit: yes Reason for Continuing Indwelling Catheter: Acute Urinary Retention or Obstruction Urinary Catheter Date of Insertion: 06/29/19 Urinary Catheter Time of Insertion: 13:00 Discharge Data Data Completed and Pending: Completed Studies During Hospitalization Category Date Time Status CT abdomen pelvis wo con [id number] Stat Cat Scan 06/29/19 12:06 Completed XR chest 1V awilda ble [id number] Stat Exams 06/29/19 12:06 Completed CV echo complete* [id number] Routine Ultrasound 07/03/19 07:40 Completed Pending at discharge Category Date Time Status Blood Culture Sta t Lab 07/01/19 13:52 Results Labs from last 24 hours 07/04/19 07/04/19 07/04/19 05:05 05:05 05:05 WBC 10.2 H RBC 3.38 L Hgb 9.6 L Hct 30.4 L MCV 89.9 MCH 28.4 MCHC 31.6 RDW 15.9 H Plt Count 220 MPV 10.0 Neut % (Auto) 81.3 Lymph % (Auto) 7.3 [place] % (Auto) 7.4 Eos % (Auto) 2.3 Baso % (Auto) 0.5 Neut # (Auto) 8.3 H Lymph # (Auto) 0.7 L [place] # (Auto) 0.8 Eos # (Auto) 0.2 Baso # (Auto) 0.1 Nucleated RBC % (a uto) 0 Nucleated RBCs # 0.0 ESR 11 Sodium 129 L Potassium 4.0 Chloride 105 Carbon Dioxide 17 L Anion Gap 11.0 BUN 15 Creatinine 0.9 GFR Calculation 61.9 L Glucose 97 Calculated Osmolal ity 264 L Calcium 8.4 L Magnesium 1.5 L Total Bilirubin 0.3 AST 16 ALT 10 Alkaline Phosphata se 95 C-Reactive Protein 17.0 H Total Protein 5.1 L Albumin 2.4 L Globulin 2.7 Vitals: Last Vital Signs Temp 97.6 F 07/04/19 12:00 Pulse 88 07/04/19 12:00 Resp 8 L 07/04/19 12:00 BP 102/63 07/04/19 12:00 Pulse Ox 99 07/04/19 07:54 Discharge Plan Discharge Patient Disposition: Home Health Service Condition: Fair Prescriptions: New sodium chloride 1 gram Tablet 1 g PO BID 30 Days Qty: 60 RF: 0 Continued tramadol [Ultram] 50 mg tablet 50 mg PO Q6H PRN (Reason: Pain, Moderate) Qty: 120 RF: 1 promethazine 25 mg tablet 25 mg PO QID PRN (Reason: Nausea) Qty: 120 RF: 4 Lipitor 20 mg tablet 20 mg PO BEDTIME Qty: 90 RF: 2 Effexor XR 37.5 mg capsule,extended release 24hr 37.5 mg PO BEDTIME Qty: 90 RF: 2 gabapentin 300 mg capsule 300 mg PO BID 90 Days Qty: 180 RF: 2 Aspir-81 81 mg tablet,delayed release (DR/EC) 81 mg PO DAILY Qty: 90 RF: 2 potassium chloride in 0.9%NaCl 40 mEq/L parenteral solution 40 meq continuous IV infusion .weekly Qty: 2000 RF: 6 magnesium sulfate in 0.9 %NaCl 2 gram/100 mL piggyback 2 gm IVP .weekly Qty: 100 RF: 6 melatonin 3 mg Tablet 3 mg PO BEDTIME PRN (Reason: Sleep) RF: 0 nitroglycerin 0.4 mg Tablet, Sublingual 0.4 mg SUBLINGUAL Q5M PRN (Reason: Chest Pain) RF: 0 ondansetron HCl [Zofran] 4 mg Tablet 8 mg PO TID PRN (Reason: Nausea) RF: 0 famotidine 20 mg Tablet 20 mg PO DAILY RF: 0 phenazopyridine 97.5 mg Tablet 97.5 mg PO PRN RF: 0 potassium chloride 20 mEq Tablet Extended Release 20 meq PO QAM RF: 0 MediHoney (honey) See Rx Instructions .ROUTE .COMPLEX RF: 0 [id number] 1 cap PO DAILY RF: 0 Discharge Orders: Discharge Order (Routine); Ordered 07/04/19 Ordered By: Joana Cody Referrals: [facility] [Other] (This is the pharmacy that will be providing your IV medication. They will be having it delivered to your home and then your home health nurse will be out to teach how to administer this medication. If you have any questions about your medication or delivery issues, please call [place] at the number provided.) [facility] [Outside] Veda Gilman MD [Primary Care Provider] - 1-3 days Discharge Diet: Advance as tolerated Discharge Activity: Increase activity as tolerated Patient Instructions: Ileostomy Care (DC), Urinary Tract Infection in Women (DC), Hyponatremia (DC) Activity Restrictions/Additional Instructions: Started on sodium tablets twice daily Continue on IV Invanz through [facility]. This will need to take place for 2 weeks Follow-up with your primary care provider in 1 to 3 days, continue with potassium, magnesium in IV fluid infusions weekly. Will need recheck BMP at time of primary care provider follow-up Call your physician or present to the ED for any acute illness or concern Discussed bacteremia, positive blood culture, continue with conservative management at this time as did not wish to remove Port-A-Cath. Will need close follow-up with primary care provider Discharge to home with home health Discharge Attestations Time Spent in Discharge Care*: greater than 30 min Quality Metrics Clinical Quality Measures During this hospital stay, did patient experience: None Coding Level of Care Code Acute Technical Support Professional for [facility] Fwd Diagnoses Acute hyponatremia E87.1 LUIS ALFREDO (acute kidney injury) N17.9 Severe protein-calorie malnutrition E43 UTI (urinary tract infection) N39.0 Chronic anemia D64.9
[2019-07-04 14:31] VITALS: BP 102/63; PULSE 88; RESP 8; TEMP 36.4
== END 2019-07-04 15:00 | disposition home health service (06) | DRG 871 ==
LOC: ER 13:43 → ICU 16:07
PROVIDERS: Admitting Provider Internal Medicine; Emergency Provider Family Medicine; PCP Family Medicine; Visit Provider Family Medicine
DX: A41.9 Sepsis, unspecified organism (principal); E43 Unspecified severe protein-calorie malnutrition; N17.9 Acute kidney failure, unspecified; I50.20 Unspecified systolic (congestive) heart failure; E87.1 Hypo-osmolality and hyponatremia; Z68.1 Body mass index [BMI] 19.9 or less, adult; N39.0 Urinary tract infection, site not specified; Z93.2 Ileostomy status; I48.91 Unspecified atrial fibrillation; D63.1 Anemia in chronic kidney disease; N18.3 Chronic kidney disease, stage 3 (moderate); E26.9 Hyperaldosteronism, unspecified; E87.6 Hypokalemia; I25.2 Old myocardial infarction; Z90.49 Acquired absence of other specified parts of digestive tract; I95.9 Hypotension, unspecified; L89.152 Pressure ulcer of sacral region, stage 2; E83.42 Hypomagnesemia; Z79.82 Long term (current) use of aspirin; Z66 Do not resuscitate; B96.89 Other specified bacterial agents as the cause of diseases classified elsewhere
CPT/HCPCS: 12345; 36415; 36430; 36591; 51702; 71045; 74176; 80048; 80053; 81001; 82274; 82533; 83605; 83690; 83735; 84100; 84443; 85025; 85651; 86140; 86850; 86900; 86920; 87040; 87077; 87086; 87186; 87804; 93005; 93306; 96375; 97161; 97530; 99283; J0743; J2405; J3475; J3480; J7030; J7040; J7050; J7799; P9016

== ENCOUNTER 2019-07-12 16:12 | Outpatient (CLI) | payer MEDICARE, SELFPAY ==
[2019-07-12 17:09] LABS: Anion Gap 12.3 (5-19); Blood Urea Nitrogen 12 mg/dL (8-23); Calcium 8.1 mg/dL (8.5-10.5); Carbon Dioxide 37 mmol/L (22-29); Chloride 96 mmol/L (98-107); Glomerular Filtration Rate 37.2 mL/min (90-130); Glucose 66 mg/dL (65-115); Magnesium 1.1 mg/dL (1.7-2.3); Phosphorus 2.6 mg/dL (2.5-4.5); Potassium 3.3 mmol/L (3.5-5.1); Sodium 142 mmol/L (136-145)
== END 2019-07-12 16:13 | disposition home or self-care (01) ==
LOC: LAB 16:15
PROVIDERS: PCP Family Medicine; Visit Provider Internal Medicine Nephrology
DX: N18.9 Chronic kidney disease, unspecified (principal); E83.42 Hypomagnesemia
CPT/HCPCS: 80069; 83735

== ENCOUNTER 2019-07-15 11:11 | Outpatient (CLI) | payer MEDICARE, SELFPAY | END 2019-07-15 11:12 | disposition home or self-care (01) | LOC: WOUND 11:12 | PROVIDERS: PCP Family Medicine; Visit Provider Surgery | DX: I96 Gangrene, not elsewhere classified (principal); L89.153 Pressure ulcer of sacral region, stage 3 | CPT/HCPCS: 97597 ==

== ENCOUNTER 2019-07-18 15:36 | Outpatient (CLI) | payer MEDICARE, SELFPAY ==
[2019-07-18 16:21] LABS: Albumin Level 3.4 g/dL (3.5-5.2); Blood Urea Nitrogen 13 mg/dL (8-23); Calcium 8.5 mg/dL (8.5-10.5); Carbon Dioxide 35 mmol/L (22-29); Chloride 93 mmol/L (98-107); Glomerular Filtration Rate 40.5 mL/min (90-130); Glucose 63 mg/dL (65-115); Magnesium 1.2 mg/dL (1.7-2.3); Phosphorus 1.7 mg/dL (2.5-4.5); Sodium 141 mmol/L (136-145)
== END 2019-07-18 15:37 | disposition home or self-care (01) ==
LOC: LAB 15:38
PROVIDERS: PCP Family Medicine; Visit Provider Internal Medicine Nephrology
DX: E83.42 Hypomagnesemia (principal); N18.9 Chronic kidney disease, unspecified
CPT/HCPCS: 80069; 83735

== ENCOUNTER 2019-07-21 05:49 | Outpatient (RCR) | payer MEDICARE, SELFPAY ==
[2019-07-08 06:10] VITALS: BP 88/51; PULSE 93; RESP 18; TEMP 37.3; O2SAT 100
[2019-07-08 07:05] LABS: Anion Gap 11.3 (5-19); Blood Urea Nitrogen 7 mg/dL (8-23); Calcium 7.2 mg/dL (8.5-10.5); Carbon Dioxide 33 mmol/L (22-29); Chloride 96 mmol/L (98-107); Glomerular Filtration Rate 44.4 mL/min (90-130); Glucose 76 mg/dL (65-115); Magnesium 1.2 mg/dL (1.7-2.3); Osmolality Calculated 279 mOsm/kg (285-295); Potassium 3.3 mmol/L (3.5-5.1); Sodium 137 mmol/L (136-145)
[2019-07-08 07:32] VITALS: BMI 12.8
[2019-07-08] MEDS: potassium chloride premix 40 MEQ/100 ML PREMIX 25 MEQ IV (07:40)
[2019-07-08] MEDS: magnesium sulfate premix 2 GM/50 ML PIGGYBACK IV (07:58)
[2019-07-21 06:40] VITALS: BP 104/49; PULSE 83; RESP 16; TEMP 37.2; O2SAT 100
[2019-07-21 06:55] LABS: Anion Gap 13.5 (5-19); Blood Urea Nitrogen 25 mg/dL (8-23); Calcium 8.2 mg/dL (8.5-10.5); Chloride 80 mmol/L (98-107); Glucose 90 mg/dL (65-115); Magnesium 1.1 mg/dL (1.7-2.3); Osmolality Calculated 274 mOsm/kg (285-295); Potassium 3.5 mmol/L (3.5-5.1); Sodium 134 mmol/L (136-145)
[2019-07-21 07:18] LABS: Carbon Dioxide 44 mmol/L (22-29)
[2019-07-21] MEDS: magnesium sulfate premix 2 GM/50 ML PIGGYBACK IV (07:18)
[2019-07-21] MEDS: potassium chloride premix 40 MEQ/100 ML PREMIX 25 MEQ IV (07:19)
[2019-07-21 07:27] VITALS: BP 97/53; PULSE 86; RESP 18; TEMP 37.6; O2SAT 99
== END 2019-07-21 18:00 | disposition home or self-care (01) ==
LOC: ONCMED 05:49
PROVIDERS: PCP Family Medicine; Visit Provider Internal Medicine Hematology & Oncology
DX: K90.9 Intestinal malabsorption, unspecified (principal); K50.90 Crohn's disease, unspecified, without complications; I25.10 Atherosclerotic heart disease of native coronary artery without angina pectoris; I95.9 Hypotension, unspecified; N39.44 Nocturnal enuresis; D51.9 Vitamin B12 deficiency anemia, unspecified
CPT/HCPCS: 36415; 36591; 80048; 83735; 96365; 96366; 96367; J1642; J3475; J3480

== ENCOUNTER 2019-07-21 09:00 | Emergency (ER) | payer MEDICARE, SELFPAY ==
[2019-07-21 09:01] VITALS: BP 76/43; PULSE 81; RESP 16; TEMP 36.5; O2SAT 98; BMI 11.0
[2019-07-21 09:04] VITALS: PULSE 82; RESP 11; O2SAT 100
--- NOTE | 2019-07-21 09:07 | ED_ITS ---
HPI - Fall General: Chief Complaint: Fall Stated Complaint: fall Time Seen by Provider: 07/21/19 09:07 Source: patient Mode of arrival: ambulatory Limitations: no limitations History of Present Illness: HPI Narrative: Patient was brought over to the emergency room department for evaluation after falling in the bathroom. Patient states that she had went to the bathroom and fell asleep on the toilet. Patient reports that she frequently falls asleep on the toilet. Patient appears chronically ill. She is very cachectic. Patient has a history of hypoaldosteronism. Patient routinely gets magnesium and potassium chloride infusions weekly. Review of med list that does have patient takes promethazine and tramadol and gabapentin these may contribute more to her sleepiness. Patient responds appropriately to question but doses while talking with her. Patient only reports head pain where she bumped her head during her fall. Associated symptoms-after fall: Reports headache(s) Review of Systems General: Reports: 10 or more systems reviewed and unremarkable except in HPI and below Neuro: Reports: headache(s) PFSH ED PFSH: Medical History (Updated 07/21/19 @ 10:31 by ERNESTINE Aguilar) Atrial fibrillation Chronic anemia Chronic kidney disease, stage III (moderate) Crohn's disease Hyperaldosteronism Hypersomnia Hypokalemia Local infection due to Port-A-Cath Myocardial infarction (lateral wall) Pressure ulcer of sacral region, unspecified stage Severe protein-calorie malnutrition Systolic congestive heart failure Surgical History H/O ileostomy H/O total colectomy History of delivery x4 Hx of appendectomy Port-A-Cath in place Family History Other CAD (coronary artery disease) Cancer Congestive heart failure Diabetes Hyperlipidemia Social History Smoking and tobacco status: never smoked Alcohol intake: never Marital status: Physical Exam Const: COMMON NORMALS: no acute distress and patient oriented x3 GENERAL APPEARANCE: cooperative HENMT: COMMON NORMALS: normocephalic, TM's normal bilaterally and Normal external nose present HEAD & SCALP: normal to inspection and normocephalic NOSE: Normal external nose present TYMPANIC MEMBRANE: TM's normal bilaterally MOUTH: Normal oral and palatal mucosa present THROAT: posterior oropharynx normal Eye: GENERAL EYE: appearance normal, both eyes and all related structures Neck/C-Spine: COMMON NORMALS: full ROM Lymph: LYMPHATIC: no lymphadenopathy noted Chest: COMMONS NORMALS: normal inspection of the chest Resp: COMMON NORMALS: normal respiratory effort EFFORT & INSPECTION: Yes able to speak in complete sentences Cardio: COMMON NORMALS: regular rate and regular rhythm RATE: regular rate RHYTHM: regular rhythm GI: COMMON NORMALS: non-tender : COMMON NORMALS: Yes no CVA tenderness BLADDER/KIDNEY EXAM: Yes no CVA tenderness Back/Pelvis: COMMON NORMALS: no CVA tenderness and thoracic and lumbar spine normal to inspection Extremity: COMMON NORMALS: normal to inspection (general weakness) Neuro: COMMON NORMALS: patient oriented x3 and moves all extremities Psych: COMMON NORMALS: mental status grossly normal and cooperative Skin: COMMON NORMALS: no rashes or lesions noted GENERAL SKIN EXAM: no rashes or lesions noted Course Vital Signs: Vital signs: Vital Signs Temperature 97.7 F 07/21/19 09:01 Pulse Rate 84 07/21/19 10:30 Respiratory Rate 12 07/21/19 10:30 Blood Pressure 90/66 07/21/19 10:30 Pulse Oximetry 100 07/21/19 09:04 MDM - Fall MDM Narrative: Medical decision making narrative: Patient comes in today for evaluation after a fall injury in the bathroom while receiving potassium and magnesium in outpatient infusion. Patient is alert and responds to questioning well. Patient reports mild headache. No open wounds are noted. Vital signs note a low blood pressure with a systolic in the upper 70s. Review of labs at 630 this morning noted creatinine that was up from 1.4 to 2.1. Potassium was 3.5, and magnesium was 1.1. Patient has active infusion of potassium going at this time. Differential diagnosis includes adverse drug effect, dehydration, head injury. CT scan of the head noted no intracranial bleeding. Chest x-ray showed no acute pathology. I feel the patient probably might be slightly dehydrated due to the increase in her creatinine she was infused 500 cc of normal saline and her blood pressure improved to the 90s systolic and patient was more alert. I also suspect patient may have some adverse drug effect due to being on promethazine and tramadol which may be causing her to become more sedated and easier for her to fall asleep while sitting on the toilet. Reviewed exam and recommendations with patient who will follow-up with primary care. Patient reports understanding and denied any other concerns. Discharge Plan Discharge Patient Disposition: Home, Self-Care Clinical Impression: Chronic kidney disease, stage III (moderate) Syncope Qualifiers: Syncope type: unspecified Qualified Code(s): R55 - Syncope and collapse Crohn's disease Qualifiers: Gastrointestinal tract location: unspecified location Digestive disease complication type: unspecified complication Qualified Code(s): K50.919 - Crohn's disease, unspecified, with unspecified complications Condition: Stable Prescriptions: No Action tramadol [Ultram] 50 mg tablet 50 mg PO Q6H PRN (Reason: Pain, Moderate) Qty: 120 RF: 1 promethazine 25 mg tablet 25 mg PO QID PRN (Reason: Nausea) Qty: 120 RF: 4 gabapentin 300 mg capsule 300 mg PO BID 90 Days Qty: 180 RF: 2 Aspir-81 81 mg tablet,delayed release (DR/EC) 81 mg PO DAILY Qty: 90 RF: 2 melatonin 3 mg Tablet 3 mg PO BEDTIME PRN (Reason: Sleep) RF: 0 nitroglycerin 0.4 mg Tablet, Sublingual 0.4 mg SUBLINGUAL Q5M PRN (Reason: Chest Pain) RF: 0 venlafaxine 37.5 mg Tablet 37.5 mg PO DAILY RF: 0 magnesium sulfate in 0.9 %NaCl 2 gram/100 mL piggyback 2 gm IVP Q7D RF: 0 famotidine 20 mg Tablet 20 mg PO DAILY PRN (Reason: Indigestion) RF: 0 MediHoney (honey) See Rx Instructions .ROUTE .COMPLEX RF: 0 [id number] 1 cap PO DAILY RF: 0 potassium chloride in 0.9%NaCl 10 mEq/100 mL Piggyback 40 meq IV DIRECTED RF: 0 Discharge Diet: Usual diet Discharge Activity: Increase activity as tolerated Activity Restrictions/Additional Instructions: Drink plenty of fluids. Continue with routine medications as directed. Follow- up with primary care in the morning. Return to the ER for chest pain, difficulty breathing, or new concerns. You may want to discuss further with the primary care office regarding medications that may be causing sedation. Coding Level of Care Code ED Perishable Freight Inspector for [facility] Exam Comprehensive
--- NOTE | 2019-07-21 09:14 | CT_ITS ---
WS: [id number] CT HEAD TECHNIQUE: Noncontrast CT of the head obtained from the skullbase to the vertex. CLINICAL INFORMATION: fall COMPARISON: February 25, 2019 DLP: 629.[address] scans at [facility] use at least one of these dose optimization techniques: automat ed exposure control; mA and/or kV adjustment per patient size (includes targeted exams where dose is matched to clinical indication); or iterative reconstruction. FINDINGS: No evidence of intracranial hemorrhage or mass effect. Ventricular system and basal cisterns are pascal nt. Mild small vessel changes with moderate parenchymal volume loss. No extra-axial fluid collections . No evidence of mass or mass effect. Normal park-white differentiation. Paranasal sinuses and mastoid air cells are well aerated. Intracranial vascular calcification. Notified ERNESTINE Aguilar at 07/21/2019 10:[address]/CT head wo con* [id number] IMPRESSION: 1. No evidence of intracranial hemorrhage or mass effect. 2. Mild small vessel changes. Moderate parenchymal volume loss. 3. No acute intracranial findings.
--- NOTE | 2019-07-21 09:19 | XR_ITS ---
WS: [id number] CHEST XRAY TECHNIQUE: Portable chest. CLINICAL INFORMATION: fall COMPARISON: June 29, 2019 FINDINGS: Left Port-A-Cath with tip in distal SVC. Heart: Normal cardiac silhouette. Aortic calcification. Lungs: Hyperinflation. Advanced chronic emphysematous change. No acute pulmonary infiltrates. No pleu ral fluid. No focal pneumonia. Suggestion of pulmonary opacity right lower lobe measuring 9 mm appear s stable from previous. This can be followed up with chest CT on an elective basis. Bones: Normal visualized bony structures. XR/XR chest 1V portable [id number] IMPRESSION: 1. Hyperinflation with advanced chronic emphysematous changes. No acute pulmon sasha infiltrates or pleural fluid. 2. Stable left Port-A-Cath. 3. Suggestion of noncalcified pulmonary nodule right lower lobe measuring 9 mm appears stable. This can be followed up with chest CT on an elective basis.
[2019-07-21 09:30] VITALS: BP 76/43; PULSE 85; RESP 17
[2019-07-21] MEDS: sodium chloride 0.9% 500 ML IV (09:35)
[2019-07-21 10:00] VITALS: BP 90/66; PULSE 84; RESP 16
--- NOTE | 2019-07-21 10:18 | PC.NURSE ---
Potassium Infusion 40 mEq of KCl initiated in Outpatient Surgery now completed at 1019
[2019-07-21 10:30] VITALS: BP 90/66; PULSE 84; RESP 12
[2019-07-21 10:48] VITALS: BP 92/53; PULSE 87; RESP 17; O2SAT 96
== END 2019-07-21 10:48 | disposition home or self-care (01) ==
PROVIDERS: Emergency Provider Nurse Practitioner Family
DX: R55 Syncope and collapse (principal); N18.3 Chronic kidney disease, stage 3 (moderate); K50.90 Crohn's disease, unspecified, without complications; Z79.82 Long term (current) use of aspirin; I48.91 Unspecified atrial fibrillation; I25.2 Old myocardial infarction
CPT/HCPCS: 12345; 70450; 71045; 96360; 99283; J1642; J7040

== ENCOUNTER 2019-07-22 11:03 | Emergency (ER) | payer MEDICARE, SELFPAY ==
[2019-07-22] VITALS (12 sets, daily range): BP systolic 91–112; BP diastolic 44–69; PULSE 96–109; RESP 16–24; TEMP 36.7; O2SAT 88–100; BMI 20.1
--- NOTE | 2019-07-22 11:23 | ED_ITS ---
HPI - Fall General: Chief Complaint: Fall Stated Complaint: FALL yesterday Time Seen by Provider: 07/22/19 11:23 History of Present Illness: HPI Narrative: Patient is a 69-year-old female with multiple medical problems. She presents today complaining of a fall at home yesterday. She was also seen in the ER for a fall at the infusion center yesterday but at that time was only complaining of hitting her head and had a CT of her head and chest x-ray. Today she is complaining that she thinks her right hip is broken. She said she was just walking and fell. It does not sound like she was using her walker at the time. Her answers to questions are inconsistent and is very unclear exactly what happened. She tells me she has broken her hip before but she is not sure if it is the right one or the left one. She is not sure if she had surgery on it. complaint: fall Onset (ago): day(s) (1) Fall from: standing Fall witnessed: no (Unclear) Place fall occurred: home Loss of consciousness: None Prolonged down time: no (Unclear) Symptoms prior to fall: none Context: tripped/slipped Location of injury: pelvis (Right hip) Location of injury - extremities: Right: thigh Severity: severe Quality: sharp Associated symptoms-after fall: Reports difficulty walking Review of Systems General: Reports: Other (Limited review of systems as patient's answers are difficult to understand and interpret) Skin/Breast: Reports: sores (Sacral decubitus) Neuro: Reports: difficulty walking [facility] [place] ED PFSH: Medical History (Updated 07/21/19 @ 10:31 by ERNESTINE Aguilar) Atrial fibrillation Chronic anemia Chronic kidney disease, stage III (moderate) Crohn's disease Hyperaldosteronism Hypersomnia Hypokalemia Local infection due to Port-A-Cath Myocardial infarction (lateral wall) Pressure ulcer of sacral region, unspecified stage Severe protein-calorie malnutrition Systolic congestive heart failure Surgical History H/O ileostomy H/O total colectomy History of delivery x4 Hx of appendectomy Port-A-Cath in place Family History Other CAD (coronary artery disease) Cancer Congestive heart failure Diabetes Hyperlipidemia Social History Smoking and tobacco status: never smoked Alcohol intake: never Marital status: Physical Exam Const: GENERAL APPEARANCE: lethargic (Awake and answering questions but sleepy) NUTRITIONAL APPEARANCE: cachectic ORIENTATION/CONSCIOUSNESS: Yes oriented to person, Yes oriented to place, Yes oriented to time (Questionable) and Yes lethargic (Awake and answering questions but sleepy) HENMT: COMMON NORMALS: normocephalic and atraumatic HEAD & SCALP: normocephalic and atraumatic Neck/C-Spine: CERVICAL SPINE: No Cervical spine tenderness Chest: COMMONS NORMALS: normal inspection of the chest Resp: COMMON NORMALS: normal respiratory effort, No use of accessory muscles and clear to auscultation bilaterally AUSCULTATION: clear to auscultation bilaterally Cardio: COMMON NORMALS: regular rate, regular rhythm and No murmurs present (Cardio) RATE: regular rate RHYTHM: regular rhythm GI: COMMON NORMALS: Soft to palpation INSPECTION: Yes GI ostomy present PALPATION: Yes Soft to palpation Back/Pelvis: THORACIC SPINE/UPPER BACK: Yes kyphosis present BACK IMAGE (FEMALE): 1. Small sacral decub, stage II Extremity: OTHER: Extremely cachectic and atrophic. Right hip is tender to any palpation with no obvious deformity. Unable to range the hip at all. Neuro: COMMON NORMALS: no focal motor deficits and no sensory deficits noted SENSORIUM/ORIENTATION: Yes oriented to person, Yes oriented to place, Yes oriented to time (Questionable) and Yes lethargic (Awake and answering questions but sleepy) SPEECH: speech normal (Slurred) GAIT: Yes Unable to assess gait Psych: ATTITUDE: Yes Withdrawn affect present MOOD & AFFECT: Yes Blunted affect present Skin: NARRATIVE SKIN EXAM: As above Course Reevaluation(s): Reevaluation #1: X-ray shows positive right hip fracture. Small dose of morphine given for pain control. Lakhani to be placed. Awaiting other labs prior to admission. Time: 12:03 Reevaluation #2: I spoke with Dr. Samson and Dr. March regarding admission here and both recommended transport to a facility where ID is available due to the patient's recent bacteremia. She was in the hospital at the beginning of It[place] with a UTI and was found to have bacteremia. She refused to have her port a cath removed and was treated with 14 days of Invanz - which she completed on Thursday. Due to concern for persistent bacteremia - the physicians here felt an ID consult would be needed. The patient's understaood this concern and requested [facility] - however when I called them they told me that they do not have ID available this weekend. I then spoke to Stew at [facility] for ortho and per Stew, Dr. Carnes accepts the patient, but wants her admitted to the hospitalist service. I am waiting for a call from hospitalist or ED for an accepting physician. Time: 15:32 Reevaluation #3: Dr. Forrest accepted to the hospitalist service at [facility] as a direct admit. Vital Signs: Vital signs: Vital Signs Temperature 98.0 F 07/22/19 11:09 Pulse Rate 96 07/22/19 20:00 Respiratory Rate 20 H 07/22/19 20:00 Blood Pressure 96/56 07/22/19 20:00 Pulse Oximetry 93 07/22/19 20:00 - Fall Lab Data: Labs: Lab Results 07/22/19 07/22/19 07/22/19 Range/Units 12:00 12:47 12:47 WBC (4.0-10.0) 10^3/ uL RBC (4.1-5.3) 10^6/u L Hgb (11.5-15.3) g/dL Hct (37.0-47.0) % MCV (81-99) fL MCH (28.0-34.0) pg MCHC (30.0-36.0) g/dL RDW (12.1-15.1) % Plt Count (130-400) 10^3/c mm MPV (7.4-10.4) fL Neut % (Auto) % Lymph % (Auto) % Lares % (Auto) % Eos % (Auto) % Baso % (Auto) % Neut # (Auto) (1.8-7.7) 10^3/u L Lymph # (Auto) (0.8-4.8) 10^3/u L Lares # (Auto) (0.2-0.9) 10^3/u L Eos # (Auto) (0.0-0.8) 10^3/u L Baso # (Auto) (0.0-0.1) 10^3/u L Nucleated RBC % (a uto) % Nucleated RBCs # /100WBC PT (10.5-13.3) SECO NDS INR (0.8-1.2) Sodium 133 L (136-145) mmol/L Potassium 2.9 L (3.5-5.1) mmol/L Chloride 83 L (98-107) mmol/L Carbon Dioxide 36 H (22-29) mmol/L Anion Gap 16.9 (5-19) BUN 22 (8-23) mg/dL Creatinine 2.0 H (0.5-0.9) mg/dL GFR Calculation 24.6 L (90-130) mL/min Glucose 97 (65-115) mg/dL Calculated Osmolal ity 273 L (285-295) mOsm/k g Lactate 2.8 H (0.5-2.2) mmol/L Calcium 8.8 (8.5-10.5) mg/dL Magnesium 1.7 (1.7-2.3) mg/dL Total Bilirubin 0.8 (0.15-1.2) mg/dL AST 47 H (0-32) U/L ALT 99 H (0-33) U/L Alkaline Phosphata se 201 H (35-105) IU/L Total Protein 6.4 L (6.6-8.7) g/dL Albumin 3.7 (3.5-5.2) g/dL Globulin 2.7 (1.3-4.6) g/dL Urine Color Yellow (Yellow) Urine Appearance Clear (CLEAR) Urine pH 9 H (5-7) Ur Specific Gravit y 1.015 (1.005-1.030) Urine Protein Neg (Negative) Urine Glucose (UA) Norm (Normal) Urine Ketones Negative (Negative) Urine Blood Neg (Negative) Urine Nitrate Negative (Negative) Urine Bilirubin Neg (NEGATIVE) Prot Sulfosalicyli c Acd Negative (Negative) Urine Urobilinogen Norm (Negative) mg/dL Ur Leukocyte Margie ase Negative (Negative) Blood Type Rho(D) Type Antibody Screen 07/22/19 07/22/19 07/22/19 Range/Units 12:47 12:47 13:37 WBC 12.1 H (4.0-10.0) 10^3/ uL RBC 3.22 L (4.1-5.3) 10^6/u L Hgb 9.4 L (11.5-15.3) g/dL Hct 30.4 L (37.0-47.0) % MCV 94.4 (81-99) fL MCH 29.2 (28.0-34.0) pg MCHC 30.9 (30.0-36.0) g/dL RDW 16.4 H (12.1-15.1) % Plt Count 182 (130-400) 10^3/c mm MPV 10.6 H (7.4-10.4) fL Neut % (Auto) 87.2 % Lymph % (Auto) 3.2 % Lares % (Auto) 8.4 % Eos % (Auto) 0.1 % Baso % (Auto) 0.4 % Neut # (Auto) 10.5 H (1.8-7.7) 10^3/u L Lymph # (Auto) 0.4 L (0.8-4.8) 10^3/u L Lares # (Auto) 1.0 H (0.2-0.9) 10^3/u L Eos # (Auto) 0.0 (0.0-0.8) 10^3/u L Baso # (Auto) 0.1 (0.0-0.1) 10^3/u L Nucleated RBC % (a uto) 0 % Nucleated RBCs # 0.0 /100WBC PT 14.10 H (10.5-13.3) SECO NDS INR 1.05 (0.8-1.2) Sodium (136-145) mmol/L Potassium (3.5-5.1) mmol/L Chloride (98-107) mmol/L Carbon Dioxide (22-29) mmol/L Anion Gap (5-19) BUN (8-23) mg/dL Creatinine (0.5-0.9) mg/dL GFR Calculation (90-130) mL/min Glucose (65-115) mg/dL Calculated Osmolal ity (285-295) mOsm/k g Lactate (0.5-2.2) mmol/L Calcium (8.5-10.5) mg/dL Magnesium (1.7-2.3) mg/dL Total Bilirubin (0.15-1.2) mg/dL AST (0-32) U/L ALT (0-33) U/L Alkaline Phosphata se (35-105) IU/L Total Protein (6.6-8.7) g/dL Albumin (3.5-5.2) g/dL Globulin (1.3-4.6) g/dL Urine Color (Yellow) Urine Appearance (CLEAR) Urine pH (5-7) Ur Specific Gravit y (1.005-1.030) Urine Protein (Negative) Urine Glucose (UA) (Normal) Urine Ketones (Negative) Urine Blood (Negative) Urine Nitrate (Negative) Urine Bilirubin (NEGATIVE) Prot Sulfosalicyli c Acd (Negative) Urine Urobilinogen (Negative) mg/dL Ur Leukocyte Margie ase (Negative) Blood Type O Negative Rho(D) Type Negaive Antibody Screen Negative EKG Data^: EKG 1: EKG interpretation date: 07/22/19 EKG interpretation time: 12:52 Interpretation: sinus tach, 108. Normal intervals with right vent conduction delay. Artifact. No clear ST changes Discharge Plan Discharge Prescriptions: No Action tramadol [Ultram] 50 mg tablet 50 mg PO Q6H PRN (Reason: Pain, Moderate) Qty: 120 RF: 1 promethazine 25 mg tablet 25 mg PO QID PRN (Reason: Nausea) Qty: 120 RF: 4 gabapentin 300 mg capsule 300 mg PO BID 90 Days Qty: 180 RF: 2 Aspir-81 81 mg tablet,delayed release (DR/EC) 81 mg PO DAILY Qty: 90 RF: 2 melatonin 3 mg Tablet 3 mg PO BEDTIME PRN (Reason: Sleep) RF: 0 nitroglycerin 0.4 mg Tablet, Sublingual 0.4 mg SUBLINGUAL Q5M PRN (Reason: Chest Pain) RF: 0 venlafaxine 37.5 mg Tablet 37.5 mg PO DAILY RF: 0 magnesium sulfate in 0.9 %NaCl 2 gram/100 mL piggyback 2 gm IVP Q7D RF: 0 famotidine 20 mg Tablet 20 mg PO DAILY PRN (Reason: Indigestion) RF: 0 Probiotic 3 billion cell Capsule 3,000 mmu cells PO DAILY Qty: 0 RF: 0 MediHoney (honey) See Rx Instructions .ROUTE .COMPLEX RF: 0 potassium chloride in 0.9%NaCl 10 mEq/100 mL Piggyback 40 meq IV DIRECTED RF: 0 Discharge Date/Time: 07/22/19 21:15 Coding Level of Care Code ED [employer] Operator for Rudolph Fwd Exam Comprehensive
--- NOTE | 2019-07-22 11:31 | XR_ITS ---
WS: [id number] HIP WITH PELVIS RIGHT TECHNIQUE: 3 views of the right hip with pelvis CLINICAL INFORMATION: fall, pain COMPARISON: None. FINDINGS: Osteopenia. Comminuted right subcapital femoral neck fracture with varus angulation. XR/XR hip RT 2-3V wo/w pel* [id number] IMPRESSION: Comminuted right subcapital femoral neck fracture with varus angulation.
--- NOTE | 2019-07-22 11:53 | ECG_ITS ---
Measurements Intervals Melfa Rate: 108 P: 79 AK: 192 QRS: 54 QRSD: 86 T: 79 QT: 263 QTc: 353 SINUS TACHYCARDIA LEFT ATRIAL ENLARGEMENT [-0.15mV P WAVE IN V1/V2] POSSIBLE RIGHT VENTRICULAR CONDUCTION DELAY [RSR (QR) IN V1/V2] NONSPECIFIC T-WAVE ABNORMALITY Compared to ECG 06/29/2019 12:50:18 T-wave abnormality now present Sinus rhythm no longer present Incomplete right bundle-branch block no longer present Myocardial infarct finding no longer present Electronically Signed On 07-22-2019 18:03:24 CDT by Sara Arango M.D. [email or web address]
[2019-07-22] MEDS: morphine 4 mg/mL SDV 1 mL 2 MG IVP ×2 (12:33→18:30)
[2019-07-22] MEDS: ondansetron 2 mg/ML SDV 2 mL 4 MG IVP (12:33)
[2019-07-22] MEDS: sodium chloride 0.9% 500 ML 999 ML IV (12:34)
[2019-07-22 12:40] LABS: Add Urine Microscopic? NO
[2019-07-22 12:44] LABS: Bilirubin Urine Neg (NEGATIVE); Blood Urine Neg (Negative); Glucose Urine UA Norm (Normal); Ketones Urine Negative (Negative); Leukocyte Esterase Urine Negative (Negative); Nitrate Urine Negative (Negative); Protein Urine Neg (Negative); Specific Gravity, Urine 1.015 (1.005-1.030); Sulfosalicylic Acid Urine Negative (Negative); Urine Appearance Clear (CLEAR); Urine Color Yellow (Yellow); Urobilinogen Urine Norm (Negative); pH Urine 9 (5-7)
[2019-07-22 13:08] LABS: INR 1.05 (0.8-1.2)
[2019-07-22 13:13] LABS: Lactate (Lactic Acid level) 2.8 mmol/L (0.5-2.2)
[2019-07-22 13:14] LABS: Alanine Aminotransferase 99 U/L (0-33); Albumin Level 3.7 g/dL (3.5-5.2); Alkaline Phosphatase 201 IU/L (35-105); Anion Gap 16.9 (5-19); Aspartate Amino Transferase 47 U/L (0-32); Blood Urea Nitrogen 22 mg/dL (8-23); Calcium 8.8 mg/dL (8.5-10.5); Carbon Dioxide 36 mmol/L (22-29); Chloride 83 mmol/L (98-107); Globulin 2.7 g/dL (1.3-4.6); Glomerular Filtration Rate 24.6 mL/min (90-130); Glucose 97 mg/dL (65-115); Magnesium 1.7 mg/dL (1.7-2.3); Osmolality Calculated 273 mOsm/kg (285-295); Sodium 133 mmol/L (136-145); Total Bilirubin 0.8 mg/dL (0.15-1.2); Total Protein 6.4 g/dL (6.6-8.7)
[2019-07-22 13:22] LABS: Potassium 2.9 mmol/L (3.5-5.1)
[2019-07-22 13:43] LABS: Basophils # 0.1 10^3/uL (0.0-0.1); Basophils % 0.4 %; Eosinophils % 0.1 %; Hematocrit 30.4 % (37.0-47.0); Hemoglobin 9.4 g/dL (11.5-15.3); Lymphocytes # 0.4 10^3/uL (0.8-4.8); Lymphocytes % 3.2 %; Mean Corpuscular HGB Conc 30.9 g/dL (30.0-36.0); Mean Corpuscular Hemoglobin 29.2 pg (28.0-34.0); Mean Corpuscular Volume 94.4 fL (81-99); Mean Platelet Volume 10.6 fL (7.4-10.4); Monocytes % 8.4 %; Neutrophils # 10.5 10^3/uL (1.8-7.7); Neutrophils % 87.2 %; Nucleated Red Blood Cells % 0 %; Platelet Count 182 10^3/cmm (130-400); Red Blood Count 3.22 10^6/uL (4.1-5.3); Red Cell Distribution Width 16.4 % (12.1-15.1); White Blood Count 12.1 10^3/uL (4.0-10.0)
[2019-07-22] MEDS: potassium chloride premix 40 MEQ/100 ML PREMIX 25 MEQ IV (14:30)
[2019-07-22] MEDS: magnesium sulfate premix 2 GM/50 ML PIGGYBACK IV (14:30)
--- NOTE | 2019-07-22 17:58 | PC.NURSE ---
attempted to call report and was requested to call back at a later time
--- NOTE | 2019-07-22 18:22 | PC.NURSE ---
attempeted to call report a 2nd time and was told the nurse was busy and she would call me back
== END 2019-07-22 21:15 ==
PROVIDERS: Emergency Provider Emergency Medicine
DX: S72.001A Fracture of unspecified part of neck of right femur, initial encounter for closed fracture (principal); Z79.82 Long term (current) use of aspirin; W19.XXXA Unspecified fall, initial encounter; I48.91 Unspecified atrial fibrillation; N18.3 Chronic kidney disease, stage 3 (moderate); I25.2 Old myocardial infarction; I50.20 Unspecified systolic (congestive) heart failure
CPT/HCPCS: 12345; 36415; 51702; 73502; 80053; 81003; 83605; 83735; 85025; 85610; 86850; 86900; 87040; 93005; 96365; 96366; 96368; 96375; 96376; 99284; 99285; J2270; J2405; J3475; J3480; J7040

== ENCOUNTER 2019-09-23 08:40 | Outpatient (CLI) | payer MEDICARE, SELFPAY ==
[2019-09-23 09:19] LABS: Basophils # 0.1 10^3/uL (0.0-0.1); Basophils % 0.5 %; Eosinophils # 0.3 10^3/uL (0.0-0.8); Eosinophils % 2.2 %; Hematocrit 32.2 % (37.0-47.0); Lymphocytes # 1.5 10^3/uL (0.8-4.8); Lymphocytes % 13.5 %; Mean Corpuscular HGB Conc 31.1 g/dL (30.0-36.0); Mean Corpuscular Hemoglobin 28.7 pg (28.0-34.0); Mean Corpuscular Volume 92.3 fL (81-99); Mean Platelet Volume 10.9 fL (7.4-10.4); Monocytes # 0.9 10^3/uL (0.2-0.9); Monocytes % 7.8 %; Neutrophils # 8.61 10^3/uL (1.8-7.7); Neutrophils % 75.7 %; Nucleated Red Blood Cells % 0 %; Platelet Count 286 10^3/cmm (130-400); Red Blood Count 3.49 10^6/uL (4.1-5.3); Red Cell Distribution Width 14.5 % (12.1-15.1); White Blood Count 11.4 10^3/uL (4.0-10.0)
[2019-09-23 09:47] LABS: Alanine Aminotransferase 8 U/L (0-33); Albumin Level 3.9 g/dL (3.5-5.2); Alkaline Phosphatase 137 IU/L (35-105); Anion Gap 12.2 (5-19); Aspartate Amino Transferase 21 U/L (0-32); Blood Urea Nitrogen 32 mg/dL (8-23); Calcium 9.3 mg/dL (8.5-10.5); Chloride 80 mmol/L (98-107); Globulin 3.8 g/dL (1.3-4.6); Glomerular Filtration Rate 29.7 mL/min (90-130); Glucose 76 mg/dL (65-115); Magnesium 1.8 mg/dL (1.7-2.3); Osmolality Calculated 274 mOsm/kg (285-295); Sodium 134 mmol/L (136-145); Total Bilirubin 0.2 mg/dL (0.15-1.2); Total Protein 7.7 g/dL (6.6-8.7)
[2019-09-23 10:01] LABS: Carbon Dioxide 44 mmol/L (22-29); Potassium 2.2 mmol/L (3.5-5.1)
== END 2019-09-23 08:41 | disposition home or self-care (01) ==
LOC: LAB 08:45
PROVIDERS: PCP Family Medicine; Visit Provider Nurse Practitioner Family
DX: N17.9 Acute kidney failure, unspecified (principal)
CPT/HCPCS: 80053; 83735; 85025

== ENCOUNTER 2019-10-12 07:56 | Day surgery (SDC) | payer MEDICARE, SELFPAY ==
--- NOTE | 2019-10-12 | SCC_ITS ---
Procedure Done: Placement of PowerPort in the right internal jugular vein Fluoroscopic guidance and interpretation for placement of catheter 97.7 seconds of fluoroscopic guidance, for a cumulative dose of 4.36 mGy, was provided to Dr. Larkin by the radiology department. C-arm images of the chest were saved for the patient's permanent record. [facility]
--- NOTE | 2019-10-12 07:44 | W.PM.OPSUD ---
Surgery/Procedure H&P Update DATE OF PROCEDURE: October 12, 2019 DATE H&P PERFORMED: 10/11/19 H&P UPDATE INFORMATION: I have reviewed H&P completed within last 30 days, I have examined patient prior to procedure and No changes to prior documentation PREOP DIAGNOSIS: Poor venous access requiring weekly infusion PLANNED PROCEDURE: Operation Date: 10/12/19 09:20 Proposed Procedures p Portacath Placement 92236 E87.1(Not Applicable) - Aneudy Larkin MD
[2019-10-12 08:10] VITALS: BP 102/62; PULSE 82; RESP 18; TEMP 37.2; O2SAT 94
--- NOTE | 2019-10-12 08:11 | SC_ITS ---
WS: [id number] INTRAOPERATIVE TECHNIQUE: 3 Spot fluoroscopic images for intraoperative purposes. FLUOROSCOPY TIME: 97 seconds CLINICAL INFORMATION: SURGERY COMPARISON: None. FINDINGS: Right central venous catheter with tip in the right atrium. No visualized pneumothorax. SC/C-arm FL for CVA [id number] IMPRESSION: Images obtained for intraoperative purposes.
[2019-10-12] MEDS: sodium chloride 0.9% 1,000 ML 30 ML IV (08:30)
[2019-10-12] MEDS: vancomycin 1,000 MG in sodium chloride 0.9% 250 ML 250 MG IV (08:32)
--- NOTE | 2019-10-12 08:35 | ANES.PREANE2 ---
Pre-Anesthetic Assessment Pre-Anesthetic Assessment: Height/Weight: Height 1.57 m Weight 29.484 kg Temp Pulse Resp BP Pulse Ox 98.9 F 82 18 102/62 94 10/12/19 08:10 10/12/19 08:10 10/12/19 08:10 10/12/19 08:10 10/12/19 08:10 Preop Diagnosis: poor access Proposed Procedure: Operation Date: 10/12/19 09:20 Proposed Procedures p Portacath Placement 73956 E87.1(Not Applicable) - Aneudy Larkin MD Familial anesthetic complications: none Was Beta Hali taken within 24 hours: N/A Last intake: Intake Last Liquid Date 10/11/19 Last Liquid Time 23:00 Last Solid Date 10/11/19 Last Solid Time 23:00 Social: Social History: No alcohol and No tobacco Exam: Pre-Anes Outpt Exam: alert, oriented x 3, clear to auscultation bilaterally and regular rate & rhythm Airway: Cervical ROM: WNL MP: 1 Dentition: Other (edentulous) CV/HEM: CV/HEM: Afib, Anemia and CHF Comments: hx V tach VT - lateral wall / echo EF 45% and grade I diastolic dysfx, w/ mod TVR : : Chronic renal Insufficiency Comments: hx acute renal failure GI: Comments: crohn's disease Metabolic: Comments: hypokalemia (Ochronic), hyper aldosteronism, pressure ulcers, severe protein calorie malnutirtion, hx septic shock Anesthetic Plan: ASA status: 4 Anesthesia: MAC Risk of > 500 ml blood loss (7ml/kg in children): No PFSH Anesthesia PFSH: Medical History Atrial fibrillation Chronic anemia Chronic kidney disease, stage III (moderate) Crohn's disease Hyperaldosteronism Hypersomnia Hypokalemia Local infection due to Port-A-Cath Myocardial infarction (lateral wall) Pressure ulcer of sacral region, unspecified stage Severe protein-calorie malnutrition Systolic congestive heart failure Surgical History H/O ileostomy H/O total colectomy History of delivery x4 Hx of appendectomy Port-A-Cath in place Family History Other CAD (coronary artery disease) Cancer Congestive heart failure Diabetes Hyperlipidemia Social History Smoking and tobacco status: never smoked Second hand smoke exposure: No Alcohol intake: never Lives independently: Yes Household members: spouse Marital status: Current occupational status: retired History of recent travel: No Current gender identity: Female Data Anesthesia Cardiac Studies: No Data to Display
[2019-10-12] MEDS: lidocaine 1% INJ 20 mL SUBCUT (10:06)
[2019-10-12] MEDS: heparin, porcine 1,000 unit/mL INJ 10 mL 10000 UNIT IRRIGATION (10:08)
[2019-10-12 10:29] LABS: ABG PH Result 7.47 (7.35-7.45); Arterial Blood Gas Hematocrit 34.6 % (37-47); Base Excess ABG 22.4 mmol/L (-2.0-2.0); Blood Gas Allen Test Pos; Blood Gas Sample Type Not specified; Carboxyhemoglobin 0.9 %THgb (0.4-20.1); HCO3 ABG 49.7 mmol/L (22-26); HGB O2 Sat 85.2 % (95-100); Ionized Calcium Level - ABG 1.2 mmol/L (1.1-1.4); Methemoglobin 0.3 % (0.4-1.5); Oxygen Saturation ABG 86.2; PO2 ABG 53.2 mmHg (80.0-100.0); Potassium Level - ABG 2.4 mmol/L (3.5-5.0); Total Hemoglobin 11.3 g/dL (12-16)
[2019-10-12 10:30] LABS: ABG PCO2 68.1 mmHg (35-45)
[2019-10-12 10:42] LABS: Anion Gap 11.4 (5-19); Blood Urea Nitrogen 33 mg/dL (8-23); Calcium 8.9 mg/dL (8.5-10.5); Chloride 84 mmol/L (98-107); Glomerular Filtration Rate 24.6 mL/min (90-130); Glucose 90 mg/dL (65-115); Osmolality Calculated 279 mOsm/kg (285-295); Sodium 136 mmol/L (136-145)
--- NOTE | 2019-10-12 10:49 | P.OP_ITS ---
Operative Report Date of procedure: October 12, 2019 Pre-op Diagnosis: poor access requiring weekly IV infusions Post-op diagnosis: same Procedure Done: Placement of PowerPort in the right internal jugular vein Fluoroscopic guidance and interpretation for placement of catheter Ultrasound guidance to access right internal jugular vein Pathology: none sent Surgeon: Aneudy Larkin Anesthesia: MAC Estimated blood loss (mL): 5 Condition: stable Disposition: PACU Procedure: The patient was taken to the Operating Room and the chest and neck bilaterally were prepped and draped in a sterile manner after the antibiotic had been administered and shoulder rolls had been placed. A total of 10 mL of 1% lidocaine with 0.5% Marcaine was infiltrated under the clavicle on the left side at the site of the planned entry into the subclavian vein. I was unable to pass the guidewire in the subclavian vein after accessing it with an introducer needle. Under ultrasound guidance the left internal jugular vein was examined and there was a thrombus noted. Using ultrasound guidance the right internal jugular vein was identified. An introducer needle was then used to access the internal jugular on the right side and after withdrawing blood syringe was josefina morgan and a guidewire passed under fluoroscopy into the superior vena cava. The site of the planned port was then marked on the chest and a 15 blade was used to make a 3 cm skin incision this was extended into the subcutaneous tissue using electrocautery and a subcutaneous pocket over the pectoralis fascia was created 2-0 Vicryl suture was used to suture the port to the pectoral fascia in the pocket on 3 sides. The catheter, after having been flushed with hep saline, was attached to the tunneler and a tunnel created between the port site and the IJ vein entry site. Under fluoroscopy the dilator sheath was passed over the guidewire into the proximal superior vena cava. The inner dilator was removed and the sheath left behind and the catheter was introduced through the peel-away sheath with the tip in the superior vena cava. The peel-away sheath was removed. The proximal end of the catheter was cut to the right size and was attached to the port. Using a Rao needle the port was accessed, it withdrew blood easily and flushed easily. A final 5cc of heparin was used to flush the PowerPort. The subcutaneous tissue was approximated using interrupted 3-0 Vicryl sutures and the skin at the introducer site and the port site was closed using subcuticular running 4-0 Monocryl sutures. Surgical glue was applied and the patient was stable throughout the procedure. Fluoroscopic guidance and interpretation was performed for introduction of the guidewire in the right internal jugular vein, passage of dilator and placement of catheter tip in the distal superior vena cava.
[2019-10-12 10:51] VITALS: BP 129/75; PULSE 97; RESP 16; TEMP 36.3; O2SAT 99
[2019-10-12 10:52] LABS: Carbon Dioxide 43 mmol/L (22-29); Potassium 2.4 mmol/L (3.5-5.1)
[2019-10-12 11:11] VITALS: BP 131/79; PULSE 89; RESP 18; O2SAT 94
[2019-10-12 11:48] VITALS: BP 139/64; PULSE 79; RESP 18; O2SAT 100
== END 2019-10-12 12:07 | disposition home or self-care (01) ==
PROVIDERS: PCP Family Medicine; Visit Provider Surgery
PROC: (CPT 36561; principal; 2019-10-12 09:20)
DX: I87.8 Other specified disorders of veins (principal); I48.91 Unspecified atrial fibrillation; D64.9 Anemia, unspecified; K50.90 Crohn's disease, unspecified, without complications; N18.3 Chronic kidney disease, stage 3 (moderate); E26.9 Hyperaldosteronism, unspecified; I25.2 Old myocardial infarction; I50.22 Chronic systolic (congestive) heart failure
CPT/HCPCS: 36561; 12345; 76000; 77001; 80048; 80051; 82810; 83986; C1788; J1644; J2704; J3010; J3370; J3490; J7030; J7050

== ENCOUNTER 2019-10-19 16:56 | Emergency (ER) | payer MEDICARE, SELFPAY ==
[2019-10-19 17:05] VITALS: BMI 11.9
[2019-10-19 17:08] VITALS: BP 94/47; PULSE 108; RESP 16; TEMP 37.1; O2SAT 100
--- NOTE | 2019-10-19 17:13 | XR_ITS ---
WS: [id number] EXAM: RIGHT SHOULDER: 3V DATE OF EXAMINATION: 10/19/2019, 1735 hours COMPARISON: Right humerus exam from the same date. HISTORY: 69 years old with shoulder pain status post fall. FINDINGS: Bone density is decreased. There are findings of a right humeral surgical neck fracture and greater t uberosity fracture. The greater tuberosity fracture appears to be displaced slightly greater than 1 c m making this a Neer 2 part fracture classification. No dislocation. AC joint is fairly normal in bindu earance. Right-sided port catheter noted in the SVC. No soft tissue abnormality noted. XR/XR shoulder RT min 2V* [id number] IMPRESSION: Right shoulder Neer 2 part classification fracture as described.
--- NOTE | 2019-10-19 17:13 | XR_ITS ---
WS: [id number] EXAM: RIGHT HUMERUS: 2 VIEWS DATE OF EXAMINATION: 10/19/2019, 1738 hours COMPARISON: Right shoulder exam from the same date. HISTORY: 69 years old with shoulder pain status post fall. FINDINGS: Bone density is decreased. As previously noted there are findings of a right humeral surgical neck fr acture and greater tuberosity fracture without extensive angulation deformity. No dislocation. No sof t tissue abnormality is seen. XR/[place] [id number] IMPRESSION: Right humeral surgical neck and greater tuberosity fracture without extensive a ngulation deformity. No dislocation.
--- NOTE | 2019-10-19 17:13 | XR_ITS ---
WS: [id number] EXAM: RIGHT KNEE: 3 VIEWS DATE OF EXAMINATION: 10/19/2019, 1741 hours COMPARISON: Right knee exam from 07/15/2011 HISTORY: Patient is 69 years old with knee pain status post fall. FINDINGS: Since the prior examination the bone density has markedly regressed. Minimal changes of arthritis are seen in the knee joint. No fracture or dislocation. No joint effusion. Extra articular soft tissues are unremarkable. XR/XR knee RT 3V* [id number] IMPRESSION: No acute bony abnormality.
--- NOTE | 2019-10-19 19:02 | W.ED.FALL ---
HPI - Fall General: Chief Complaint: Fall Stated Complaint: FALL SHOULDER PAIN Time Seen by Provider: 10/19/19 18:58 Source: patient Mode of arrival: ambulatory Limitations: no limitations History of Present Illness: HPI Narrative: 69-year-old female who fell this morning at 230. She states she slipped on a piece of paper. Patient landed on her right side and has right shoulder pain along with right knee pain. She denies hitting her head. She denies any loss conscious. She denies on any pain medicine. States her pain in her right arm is a 5 out of 10 currently. MD complaint: fall Associated symptoms-after fall: Denies abdominal pain, chest pain or headache(s) Review of Systems Const: Denies: fever(s), chills, body aches or change in appetite Eyes: Denies: blurry vision or eye discomfort ENMT: Denies: throat pain or dental pain Card: Denies: chest pain Resp: Denies: dyspnea GI: Denies: abdominal pain, nausea, vomiting or diarrhea : Denies: dysuria Musc: Reports: joint pain Skin/Breast: Denies: rash Neuro: Denies: headache(s) Psych: Denies: depression Frankie/Lymph: Denies: easy bruising All/Imm: Denies: urticaria PFSH ED PFSH: Medical History Atrial fibrillation Chronic anemia Chronic kidney disease, stage III (moderate) Crohn's disease Hyperaldosteronism Hypersomnia Hypokalemia Local infection due to Port-A-Cath Myocardial infarction (lateral wall) Pressure ulcer of sacral region, unspecified stage Severe protein-calorie malnutrition Systolic congestive heart failure Surgical History H/O ileostomy H/O total colectomy History of delivery x4 Hx of appendectomy Port-A-Cath in place (10/12/19) right IJ Family History Other CAD (coronary artery disease) Cancer Congestive heart failure Diabetes Hyperlipidemia Social History Smoking and tobacco status: never smoked Second hand smoke exposure: No Alcohol intake: never Lives independently: Yes Household members: spouse Marital status: Current occupational status: retired History of recent travel: No Current gender identity: Female Physical Exam Const: COMMON NORMALS: no acute distress, patient oriented x3 and healthy appearing HENMT: COMMON NORMALS: normocephalic and atraumatic HEAD & SCALP: normocephalic and atraumatic Eye: COMMON NORMALS: Equal, round and reactive pupils present and EOMs intact bilaterally PUPIL: Yes Equal, round and reactive pupils present Neck/C-Spine: COMMON NORMALS: full ROM and supple Chest: COMMONS NORMALS: normal inspection of the chest and normal palpation of entire chest wall Resp: COMMON NORMALS: normal respiratory effort, No retractions, No use of accessory muscles and clear to auscultation bilaterally AUSCULTATION: clear to auscultation bilaterally Cardio: COMMON NORMALS: regular rate, regular rhythm and No murmurs present (Cardio) RATE: regular rate RHYTHM: regular rhythm GI: COMMON NORMALS: Normal to inspection, nondistended, normoactive bowel sounds present, Soft to palpation, non-tender and no masses PALPATION: Yes Soft to palpation Extremity: COMMON NORMALS: full ROM NARRATIVE EXTREMITY EXAM: Bruising to right arm with tenderness to proximal humerus. Neuro: COMMON NORMALS: patient oriented x3, moves all extremities and no focal motor deficits Psych: COMMON NORMALS: mental status grossly normal, Normal thought process present and cooperative THOUGHT PROCESS: Normal thought process present Skin: COMMON NORMALS: no rashes or lesions noted and no wounds GENERAL SKIN EXAM: no rashes or lesions noted Course Vital Signs: Vital signs: Vital Signs Temperature 98.7 F 10/19/19 17:08 Pulse Rate 108 H 10/19/19 17:08 Respiratory Rate 16 10/19/19 17:08 Blood Pressure 94/47 10/19/19 17:08 Pulse Oximetry 100 10/19/19 17:08 MDM - Fall MDM Narrative: Medical decision making narrative: Patient presents here with proximal humerus fracture from a fall. Patient's x-ray of knee is negative. Patient did not hit her head. We will place her in a sling and she is stable for discharge. Imaging Data^: xr shoulder: Radiologist's impression: [address] [address] XRay Report Signed Patient: Janene Gallegos Unit #: [id number] : 1950 Age/Sex: 69 / F ADM Date: 10/19/19 Loc: ER Room/Bed: Attending Dr: Ordering Provider/Ordering MD: Yue Marquez DO Date of Service: 10/19/19 Procedure(s): XR shoulder RT min 2V* [id number] Accession Number(s): [id number] Report Number: [id number] WS: [id number] EXAM: RIGHT SHOULDER: 3V DATE OF EXAMINATION: 10/19/2019, 1735 hours COMPARISON: Right humerus exam from the same date. HISTORY: 69 years old with shoulder pain status post fall. FINDINGS: Bone density is decreased. There are findings of a right humeral surgical neck fracture and greater tuberosity fracture. The greater tuberosity fracture appears to be displaced slightly greater than 1 cm making this a Neer 2 part fracture classification. No dislocation. AC joint is fairly normal in appearance. Right-sided port catheter noted in the SVC. No soft tissue abnormality noted. XR/XR shoulder RT min 2V* [id number] IMPRESSION: Right shoulder Neer 2 part classification fracture as described. Other Xray: Radiologist's impression: [place] [address] XRay Report Signed Patient: Janene Gallegos Unit #: [id number] : 1950 Age/Sex: 69 / F ADM Date: 10/19/19 Loc: ER Room/Bed: Attending Dr: Ordering Provider/Ordering MD: Yue Marquez DO Date of Service: 10/19/19 Procedure(s): XR knee RT 3V* [id number] Accession Number(s): [id number] Report Number: [id number] WS: [id number] EXAM: RIGHT KNEE: 3 VIEWS DATE OF EXAMINATION: 10/19/2019, 1741 hours COMPARISON: Right knee exam from 07/15/2011 HISTORY: Patient is 69 years old with knee pain status post fall. FINDINGS: Since the prior examination the bone density has markedly regressed. Minimal changes of arthritis are seen in the knee joint. No fracture or dislocation. No joint effusion. Extra articular soft tissues are unremarkable. XR/XR knee RT 3V* [id number] IMPRESSION: No acute bony abnormality. Discharge Plan Discharge Patient Disposition: Home Clinical Impression: Fracture of proximal end of humerus Qualifiers: Encounter type: initial encounter Fracture type: closed Fracture morphology: unspecified fracture morphology Laterality: right Qualified Code(s): S42.201A - Unspecified fracture of upper end of right humerus, initial encounter for closed fracture Condition: Stable Prescriptions: [place] 5-325 mg tablet 1 tab PO Q6H PRN (Reason: pain) Qty: 10 RF: 0 No Action Aspir-81 81 mg tablet,delayed release (DR/EC) 81 mg PO DAILY Qty: 90 RF: 2 tramadol [Ultram] 50 mg tablet 50 mg PO Q6H PRN (Reason: Pain, Moderate) Qty: 120 RF: 1 gabapentin 300 mg capsule 300 mg PO BID 90 Days Qty: 180 RF: 0 promethazine 25 mg tablet 25 mg PO QID PRN (Reason: Nausea) Qty: 30 RF: 0 melatonin 3 mg Tablet 3 mg PO BEDTIME PRN (Reason: Sleep) RF: 0 magnesium sulfate in 0.9 %NaCl 2 gram/100 mL piggyback 2 gm IVP Q7D RF: 0 famotidine 20 mg Tablet 20 mg PO DAILY PRN (Reason: Indigestion) RF: 0 Probiotic 3 billion cell Capsule 3,000 mmu cells PO DAILY Qty: 0 RF: 0 MediHoney (honey) See Rx Instructions .ROUTE .COMPLEX RF: 0 potassium chloride in 0.9%NaCl 10 mEq/100 mL Piggyback 40 meq IV DIRECTED RF: 0 Discharge Orders: Discharge Order (Routine); Ordered 10/19/19 Ordered By: Buzz Moncada Referrals: Aubrey Arevalo MD [Physician] - 1-3 days Veda Gilman MD [Primary Care Provider] - Discharge Diet: Advance as tolerated Discharge Activity: Resume usual activity Coding Level of Care Code ED [employer] 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
[2019-10-19] MEDS: HYDROcodone-acetaminophen 5-325 mg Tablet 1 TAB PO (19:12)
[2019-10-19 19:20] VITALS: PULSE 96; RESP 17; O2SAT 111
[2019-10-19 19:22] VITALS: BP 100/71; PULSE 107; RESP 17; O2SAT 96
--- NOTE | 2019-10-20 14:30 | DCPLANNER ---
manager database had message to schedule a follow up appointment with ortho. manager database called the ortho clinic, spoke with Pat gave clinic patients information. manager database was told that patients information would be printed and reviewed. Clinic will call patient with appointment information.
--- NOTE | 2019-11-09 10:12 | DCPLANNER ---
recycling manager called the ortho clinic, spoke with Pat to confirm that a follow up appointment had been scheduled for patient. recycling manager was told that patient is following up with her primary care physician.
== END 2019-10-19 19:23 | disposition home or self-care (01) ==
PROVIDERS: Emergency Provider Emergency Medicine; PCP Family Medicine
DX: S42.201A Unspecified fracture of upper end of right humerus, initial encounter for closed fracture (principal); Z79.82 Long term (current) use of aspirin; I48.91 Unspecified atrial fibrillation; N18.3 Chronic kidney disease, stage 3 (moderate); I25.2 Old myocardial infarction; I50.20 Unspecified systolic (congestive) heart failure; W01.0XXA Fall on same level from slipping, tripping and stumbling without subsequent striking against object, initial encounter
CPT/HCPCS: 12345; 73030; 73060; 73562; 99281; 99283

== ENCOUNTER 2019-10-24 23:45 | Inpatient (IN) | payer MEDICARE, SELFPAY ==
[2019-10-24 23:46] VITALS: BP 97/62; PULSE 95; RESP 16; TEMP 36.9; O2SAT 94; BMI 11.9
--- NOTE | 2019-10-24 23:47 | XRR_ITS ---
PROCEDURE INFORMATION: Exam: XR Right Shoulder Exam date and time: 10/25/2019 12:21 AM Age: 69 years old Clinical indication: Injury or trauma; Initial encounter; Blunt trauma (contusions or hematomas; Shoulder; Right; Injury details: Fall 5 days ago TECHNIQUE: Imaging protocol: XR Right shoulder. Views: 2 or more views. COMPARISON: CR XR shoulder RT min 2V* [id number] 10/19/2019 5:34 PM FINDINGS: Tubes, catheters and devices: There is a central venous catheter with the tip projecting over the superior vena cava. Bones/joints: Comminuted mildly displaced fractures are present through the humeral head neck junction with multiple free fracture fragments. Generalized osteopenia. Soft tissues: Edema and/or hematoma is present in the soft tissues adjacent to the fracture site. XR/XR shoulder RT min 2V* [id number] IMPRESSION: Comminuted humeral head neck junction fractures with multiple free fracture fragments.
--- NOTE | 2019-10-24 23:59 | XRR_ITS ---
PROCEDURE INFORMATION: Exam: XR Chest, 1 View Exam date and time: 10/25/2019 12:21 AM Age: 69 years old Clinical indication: Injury or trauma; Fall; Initial encounter; Blunt trauma (contusions or hematomas); Injury date: 5 days ago; Additional info: Fever TECHNIQUE: Imaging protocol: XR of the chest Views: 1 view. COMPARISON: [place] XR chest 1V portable [id number] 07/21/2019 9:42 AM FINDINGS: Tubes, catheters and devices: Central venous catheter tip projects over the superior vena cava. Lungs: Unremarkable. No consolidation. Pleural space: Unremarkable. No pleural effusion. No pneumothorax. Heart/Mediastinum: Unremarkable. No cardiomegaly. Vasculature: There is calcified plaque in the aortic knob. Bones/joints: Generalized osteopenia. Comminuted fractures at the right humeral head neck junction. Generalized osteopenia. Soft tissues: COPD morphology of the chest. XR/XR chest 1V portable [id number] IMPRESSION: 1. Comminuted fractures at the right humeral head neck junction. 2. COPD morphology of the chest.
[2019-10-25] VITALS (15 sets, daily range): BP systolic 90–134; BP diastolic 48–87; PULSE 71–102; RESP 12–33; TEMP 36.6–37.1; O2SAT 93–100
--- NOTE | 2019-10-25 00:07 | ED_ITS ---
HPI - Extremity Problem General: Chief complaint: Extremity Injury, Upper Stated complaint: Right Shoulder Pain Time Seen by Provider: 10/24/19 23:59 Source: patient and EMS Mode of arrival: EMS Limitations: no limitations History of Present Illness: HPI Narrative: 69-year-old female who had a fall last week and had a humerus fracture. Patient lives at home with her . She states that her yesterday and a friend came over and was concerned about her today. She is quite cachectic and does have a pressure wound on her buttocks and is lying in her own urine currently. She states she is very sad and has not been taking care of herself since her . Speaking the family family is concerned her could have had COVID. Patient's had subjective fevers at home. She denies any cough or shortness of breath. Associated symptoms: Deny chest pain, fever(s) or rash Review of Systems Const: Denies: fever(s), chills, body aches or change in appetite Eyes: Denies: blurry vision or eye discomfort ENMT: Denies: throat pain or dental pain Card: Denies: chest pain Resp: Denies: dyspnea GI: Denies: abdominal pain, nausea, vomiting or diarrhea : Denies: dysuria Musc: Reports: joint pain Skin/Breast: Denies: rash Neuro: Denies: headache(s) Psych: Denies: depression Frankie/Lymph: Denies: easy bruising All/Imm: Denies: urticaria PFSH ED PFSH: Medical History (Updated 10/25/19 @ 01:36 by Buzz Moncada MD) Atrial fibrillation Chronic anemia Chronic kidney disease, stage III (moderate) Crohn's disease Hyperaldosteronism Hypersomnia Hypokalemia Local infection due to Port-A-Cath Myocardial infarction (lateral wall) Pressure ulcer of sacral region, unspecified stage Severe protein-calorie malnutrition Systolic congestive heart failure Surgical History H/O ileostomy H/O total colectomy History of delivery x4 Hx of appendectomy Port-A-Cath in place (10/12/19) right IJ Family History Other CAD (coronary artery disease) Cancer Congestive heart failure Diabetes Hyperlipidemia Social History Smoking and tobacco status: never smoked Second hand smoke exposure: No Alcohol intake: never Lives independently: Yes Household members: spouse Marital status: Current occupational status: retired History of recent travel: No Current gender identity: Female Physical Exam Const: COMMON NORMALS: patient oriented x3 GENERAL APPEARANCE: disheveled, ill appearing and frail appearing HENMT: COMMON NORMALS: normocephalic and atraumatic HEAD & SCALP: normocephalic and atraumatic Eye: COMMON NORMALS: Equal, round and reactive pupils present and EOMs intact bilaterally PUPIL: Yes Equal, round and reactive pupils present Neck/C-Spine: COMMON NORMALS: full ROM and supple Chest: COMMONS NORMALS: normal inspection of the chest and normal palpation of entire chest wall Resp: COMMON NORMALS: normal respiratory effort, No retractions, No use of accessory muscles and clear to auscultation bilaterally AUSCULTATION: clear to auscultation bilaterally Cardio: COMMON NORMALS: regular rate, regular rhythm and No murmurs present (Cardio) RATE: regular rate RHYTHM: regular rhythm GI: COMMON NORMALS: Normal to inspection, nondistended, normoactive bowel sounds present, Soft to palpation, non-tender and no masses PALPATION: Yes Soft to palpation Extremity: COMMON NORMALS: normal to inspection and full ROM Neuro: COMMON NORMALS: patient oriented x3, moves all extremities and no focal motor deficits Psych: COMMON NORMALS: mental status grossly normal, Normal thought process present and cooperative THOUGHT PROCESS: Normal thought process present Skin: NARRATIVE SKIN EXAM: Erythema and pressure ulcers to buttocks Course Vital Signs: Vital signs: Vital Signs Temperature 98.5 F 10/24/19 23:46 Pulse Rate 89 10/25/19 01:18 Respiratory Rate 16 10/25/19 01:18 Blood Pressure 127/86 10/25/19 01:18 Pulse Oximetry 98 10/25/19 01:18 MDM - Extremity (Nontraumatic) MDM Narrative: Medical decision making narrative: Patient presents here with generalized weakness along with dehydration and is COVID positive. Patient has not been taking care of herself is covered in urine is quite cachectic. Patient is now living at home since her I feel she is not safe to go back home. Spoke to hospitalist and will admit to the PICU and have case management involved. Patient has no x-ray findings. She does have a humerus fracture from a fall a week ago. Lab Data: Labs: Lab Results 10/25/19 10/25/19 10/25/19 Range/Units 00:35 00:35 00:35 WBC 10.3 H (4.0-10.0) 10^3/ uL RBC 3.31 L (4.1-5.3) 10^6/u L Hgb 9.5 L (11.5-15.3) g/dL Hct 30.7 L (37.0-47.0) % MCV 92.7 (81-99) fL MCH 28.7 (28.0-34.0) pg MCHC 30.9 (30.0-36.0) g/dL RDW 17.0 H (12.1-15.1) % Plt Count 341 (130-400) 10^3/c mm MPV 10.6 H (7.4-10.4) fL Neut % (Auto) 84.9 % Lymph % (Auto) 9.6 % Mcdonough % (Auto) 4.3 % Eos % (Auto) 0.0 % Baso % (Auto) 0.1 % Neut # (Auto) 8.74 H (1.8-7.7) 10^3/u L Lymph # (Auto) 1.0 (0.8-4.8) 10^3/u L Mcdonough # (Auto) 0.4 (0.2-0.9) 10^3/u L Eos # (Auto) 0.0 (0.0-0.8) 10^3/u L Baso # (Auto) 0.0 (0.0-0.1) 10^3/u L Nucleated RBC % (a uto) 0 % Nucleated RBCs # 0.0 /100WBC Sodium 137 (136-145) mmol/L Potassium 3.0 L (3.5-5.1) mmol/L Chloride 90 L (98-107) mmol/L Carbon Dioxide 32 H (22-29) mmol/L Anion Gap 18.0 (5-19) BUN 36 H (8-23) mg/dL Creatinine 1.3 H (0.5-0.9) mg/dL GFR Calculation 40.5 L (90-130) mL/min Glucose 91 (65-115) mg/dL Calculated Osmolal ity 281 L (285-295) mOsm/k g Calcium 7.5 L (8.5-10.5) mg/dL Total Bilirubin 0.5 (0.15-1.2) mg/dL AST 42 H (0-32) U/L ALT 18 (0-33) U/L Alkaline Phosphata se 95 (35-105) IU/L Total Protein 6.3 L (6.6-8.7) g/dL Albumin 2.8 L (3.5-5.2) g/dL Globulin 3.5 (1.3-4.6) g/dL Urine Color (Yellow) Urine Appearance (CLEAR) Urine pH (5-7) Ur Specific Gravit y (1.005-1.030) Urine Protein (Negative) Urine Glucose (UA) (Normal) Urine Ketones (Negative) Urine Blood (Negative) Urine Nitrate (Negative) Urine Bilirubin (NEGATIVE) Urine Urobilinogen (Negative) mg/dL Ur Leukocyte Margie ase (Negative) SARS-CoV-2 Ag (Rap id) Positive H (Negative) 10/25/19 Range/Units 00:50 WBC (4.0-10.0) 10^3/ uL RBC (4.1-5.3) 10^6/u L Hgb (11.5-15.3) g/dL Hct (37.0-47.0) % MCV (81-99) fL MCH (28.0-34.0) pg MCHC (30.0-36.0) g/dL RDW (12.1-15.1) % Plt Count (130-400) 10^3/c mm MPV (7.4-10.4) fL Neut % (Auto) % Lymph % (Auto) % Mcdonough % (Auto) % Eos % (Auto) % Baso % (Auto) % Neut # (Auto) (1.8-7.7) 10^3/u L Lymph # (Auto) (0.8-4.8) 10^3/u L Mcdonough # (Auto) (0.2-0.9) 10^3/u L Eos # (Auto) (0.0-0.8) 10^3/u L Baso # (Auto) (0.0-0.1) 10^3/u L Nucleated RBC % (a uto) % Nucleated RBCs # /100WBC Sodium (136-145) mmol/L Potassium (3.5-5.1) mmol/L Chloride (98-107) mmol/L Carbon Dioxide (22-29) mmol/L Anion Gap (5-19) BUN (8-23) mg/dL Creatinine (0.5-0.9) mg/dL GFR Calculation (90-130) mL/min Glucose (65-115) mg/dL Calculated Osmolal ity (285-295) mOsm/k g Calcium (8.5-10.5) mg/dL Total Bilirubin (0.15-1.2) mg/dL AST (0-32) U/L ALT (0-33) U/L Alkaline Phosphata se (35-105) IU/L Total Protein (6.6-8.7) g/dL Albumin (3.5-5.2) g/dL Globulin (1.3-4.6) g/dL Urine Color Yellow (Yellow) Urine Appearance Clear (CLEAR) Urine pH 5 (5-7) Ur Specific Gravit y 1.020 (1.005-1.030) Urine Protein Neg (Negative) Urine Glucose (UA) Norm (Normal) Urine Ketones Negative (Negative) Urine Blood Neg (Negative) Urine Nitrate Negative (Negative) Urine Bilirubin Neg (NEGATIVE) Urine Urobilinogen Norm (Negative) mg/dL Ur Leukocyte Margie ase Negative (Negative) SARS-CoV-2 Ag (Rap id) (Negative) Imaging Data^: CXR: My impression: right proximal humerul fx with no chest findings Discharge Plan Discharge Patient Disposition: Admitted As Inpatient Admit Provider: Deepak Parada Clinical Impression: Pressure ulcer of sacral region, unspecified stage, Weakness, COVID-19 Condition: Stable Referrals: Veda Gliman MD [Primary Care Provider] - Coding Level of Care Code ED In Flight Technician for Chg Fwd Exam Comprehensive
[2019-10-25] MEDS: morphine 4 mg/mL SDV 1 mL IVP (01:03)
[2019-10-25] MEDS: sodium chloride 0.9% 1,000 ML 999 ML IV (01:03)
[2019-10-25 01:07] LABS: Add Urine Microscopic? NO
[2019-10-25 01:10] LABS: Basophils % 0.1 %; Hematocrit 30.7 % (37.0-47.0); Hemoglobin 9.5 g/dL (11.5-15.3); Lymphocytes % 9.6 %; Mean Corpuscular HGB Conc 30.9 g/dL (30.0-36.0); Mean Corpuscular Hemoglobin 28.7 pg (28.0-34.0); Mean Corpuscular Volume 92.7 fL (81-99); Mean Platelet Volume 10.6 fL (7.4-10.4); Monocytes # 0.4 10^3/uL (0.2-0.9); Monocytes % 4.3 %; Neutrophils # 8.74 10^3/uL (1.8-7.7); Neutrophils % 84.9 %; Nucleated Red Blood Cells % 0 %; Platelet Count 341 10^3/cmm (130-400); Red Blood Count 3.31 10^6/uL (4.1-5.3); White Blood Count 10.3 10^3/uL (4.0-10.0)
[2019-10-25 01:14] LABS: Bilirubin Urine Neg (NEGATIVE); Blood Urine Neg (Negative); Glucose Urine UA Norm (Normal); Ketones Urine Negative (Negative); Leukocyte Esterase Urine Negative (Negative); Nitrate Urine Negative (Negative); Protein Urine Neg (Negative); Urine Appearance Clear (CLEAR); Urine Color Yellow (Yellow); Urobilinogen Urine Norm (Negative); pH Urine 5 (5-7)
[2019-10-25 01:27] LABS: Alanine Aminotransferase 18 U/L (0-33); Albumin Level 2.8 g/dL (3.5-5.2); Alkaline Phosphatase 95 IU/L (35-105); Aspartate Amino Transferase 42 U/L (0-32); Blood Urea Nitrogen 36 mg/dL (8-23); Calcium 7.5 mg/dL (8.5-10.5); Carbon Dioxide 32 mmol/L (22-29); Chloride 90 mmol/L (98-107); Globulin 3.5 g/dL (1.3-4.6); Glomerular Filtration Rate 40.5 mL/min (90-130); Glucose 91 mg/dL (65-115); Osmolality Calculated 281 mOsm/kg (285-295); Sodium 137 mmol/L (136-145); Total Bilirubin 0.5 mg/dL (0.15-1.2); Total Protein 6.3 g/dL (6.6-8.7)
[2019-10-25 01:29] LABS: SARS Covid-2 Antigen Positive (Negative)
[2019-10-25 02:07] LABS: Fibrinogen 517 mg/dL (174-498)
[2019-10-25 02:42] LABS: Ferritin 1549 ng/mL (15-150)
[2019-10-25] MEDS: sodium chloride 0.9% 1,000 ML 75 ML IV (03:40)
[2019-10-25] MEDS: potassium chloride ER 10 mEq Tablet 40 MEQ PO (03:40)
[2019-10-25] MEDS: heparin 5,000 unit/mL INJ 1 mL 5000 UNIT SUBCUT ×3 (03:40→20:55)
[2019-10-25 05:33] LABS: Basophils % 0.1 %; Eosinophils % 0.1 %; Hematocrit 29.8 % (37.0-47.0); Hemoglobin 9.5 g/dL (11.5-15.3); Lymphocytes # 0.7 10^3/uL (0.8-4.8); Lymphocytes % 6.9 %; Mean Corpuscular HGB Conc 31.9 g/dL (30.0-36.0); Mean Corpuscular Hemoglobin 29.4 pg (28.0-34.0); Mean Corpuscular Volume 92.3 fL (81-99); Mean Platelet Volume 10.5 fL (7.4-10.4); Monocytes # 0.4 10^3/uL (0.2-0.9); Monocytes % 3.8 %; Neutrophils # 8.91 10^3/uL (1.8-7.7); Neutrophils % 88.5 %; Nucleated Red Blood Cells % 0 %; Platelet Count 283 10^3/cmm (130-400); Red Blood Count 3.23 10^6/uL (4.1-5.3); Red Cell Distribution Width 16.8 % (12.1-15.1); White Blood Count 10.1 10^3/uL (4.0-10.0)
[2019-10-25 05:57] LABS: D Dimer 8.18 ug/mIFEU (0-0.59)
[2019-10-25 06:03] LABS: Alanine Aminotransferase 19 U/L (0-33); Alkaline Phosphatase 98 IU/L (35-105); Anion Gap 12.6 (5-19); Aspartate Amino Transferase 40 U/L (0-32); Blood Urea Nitrogen 35 mg/dL (8-23); Calcium 7.8 mg/dL (8.5-10.5); Carbon Dioxide 33 mmol/L (22-29); Chloride 90 mmol/L (98-107); Globulin 3.4 g/dL (1.3-4.6); Glomerular Filtration Rate 44.4 mL/min (90-130); Glucose 129 mg/dL (65-115); Osmolality Calculated 275 mOsm/kg (285-295); Sodium 133 mmol/L (136-145); Total Bilirubin 0.4 mg/dL (0.15-1.2); Total Protein 6.4 g/dL (6.6-8.7)
[2019-10-25 06:04] LABS: C Reactive Protein 72.7 mg/L (0.0-4.9)
[2019-10-25 06:11] LABS: Potassium 2.6 mmol/L (3.5-5.1)
[2019-10-25] MEDS: potassium chloride premix 40 MEQ/100 ML PREMIX 25 MEQ IV ×2 (07:45→11:26)
[2019-10-25] MEDS: HYDROcodone-acetaminophen 5-325 mg Tablet 1 TAB PO ×3 (07:45→20:00)
[2019-10-25 08:39] LABS: Magnesium 1.4 mg/dL (1.7-2.3)
[2019-10-25] MEDS: aspirin 81 mg EC Tablet PO (09:23)
--- NOTE | 2019-10-25 14:27 | PM.HP ---
Providers/Chief Complaint Admitting Physician: Deepak Parada MD Primary Care Provider: Veda Gilman MD Chief Complaint: Right Shoulder Pain History of Present Illness Janene Gallegos is a 69 year old female presents to emergency department after her couple days ago and she was found depressed and not moving much with significant coccygeal area ulcer. Patient has been very cachectic and mentioned febrile episodes at home. She tested positive for COVID-19 and admitted to ICU for further monitoring and treatment. Her blood cultures came back with gram-negative sanchez. Interestingly patient denied any complaints on review of system. Reports that she continues to have normal ostomy output. She had previous history of bowel resection because of Crohn's disease. She denies abdominal pain or nausea. She recently had humeral fracture which was repaired. She continues to have some pain with movement. She denied shortness of breath or chest pain. She denied cough. She is very cachectic although reports having normal oral intake. She ate relatively good during her breakfast and lunch. She reports that once weekly she gets transfusion of magnesium and potassium for a long period of time. Review of Systems Const: Reports: fever(s); Denies: chills Eyes: Denies: change in vision ENMT: Denies: throat pain or change in hearing Card: Denies: chest pain, edema or lightheadedness Resp: Denies: dyspnea or productive cough GI: Denies: abdominal pain, nausea, vomiting, dysphagia, diarrhea, constipation, hematochezia or melena : Denies: difficulty voiding Musc: Denies: joint pain or joint swelling Skin/Breast: Denies: rash or erythema Neuro: Denies: headache(s) or weakness in extremities Psych: Denies: depression (She denies being depressed and reports coping well. She has 4 children and is planning to stay with her daughter in [place]) or suicidal ideation Endo: Denies: excessive sweating Frankie/Lymph: Denies: easy bleeding or tender lymph nodes All/Imm: Denies: throat swelling Medications/Allergies Home Medications Medication Instructions Recorded Confirmed Last Taken Type melatonin 3 mg PO BEDTIME PRN 03/01/19 10/19/19 10/07/19 History MediHoney (honey) See Rx Instructions .ROUTE .COMPLEX 05/02/19 10/19/19 10/11/19 History Probiotic 3,000 mmu cells PO DAILY #0 05/02/19 10/19/19 10/05/19 History famotidine 20 mg PO DAILY PRN 05/02/19 10/19/19 10/05/19 History aspirin 81 mg tablet,delayed 81 mg PO DAILY #90 tab 05/10/19 10/19/19 10/07/19 Rx release potassium chloride in 0.9%NaCl 40 meq IV DIRECTED 07/08/19 10/19/19 09/19/19 History magnesium sulfate in 0.9 %NaCl 2 gm IVP Q7D 07/21/19 10/19/19 09/19/19 History gabapentin 300 mg capsule 300 mg PO BID 90 Days #180 cap 09/29/19 10/19/19 10/11/19 Rx tramadol 50 mg tablet 50 mg PO Q6H PRN #120 tab 09/29/19 10/19/19 10/11/19 Rx promethazine 25 mg tablet 25 mg PO QID PRN #30 tab 10/14/19 10/19/19 Unknown Rx hydrocodone-acetaminophen [[place]] 1 tab PO Q6H PRN #10 tab 10/19/19 Unknown Rx Allergies Allergy/AdvReac Type Severity Reaction Status Date / Time amoxicillin Allergy ALGY-Hives Verified 10/19/19 17:12 cefazolin [From Ancef] Allergy ALGY-Rash Verified 10/19/19 17:12 cephalexin [From Keflex] Allergy ALGY-Rash Verified 10/19/19 17:12 codeine Allergy ALGY-Hives Verified 10/19/19 17:12 doxycycline Allergy ALGY-Hives Verified 10/19/19 17:12 erythromycin base Allergy ALGY-Hives Verified 10/19/19 17:12 [From E.E.S.] latex Allergy Unknown Verified 10/19/19 17:12 metoclopramide Allergy Unknown Verified 10/19/19 17:12 neomycin Allergy ALGY-Hives Verified 10/19/19 17:12 Penicillins Allergy ALGY-Hives Verified 10/19/19 17:12 polyethylene glycol Allergy ADR-Swelling Verified 10/19/19 17:12 of the Eye pregabalin [From Lyrica] Allergy ALGY-Swell Verified 10/19/19 17:12 Lip/Tongue/Throat prochlorperazine Allergy ALGY-Hives Verified 10/19/19 17:12 [From Compazine] propoxyphene [From Darvon] Allergy ALGY-Hives Verified 10/19/19 17:12 sapropterin Allergy ADR-Swelling Verified 10/19/19 17:12 [From Tetrahydrobiopterin of the Eye Di-HCL] scopolamine Allergy ALGY-Hives Verified 10/19/19 17:12 Sulfa (Sulfonamide Allergy ALGY-Hives Verified 10/19/19 17:12 Antibiotics) tegaserod [From Zelnorm] Allergy ALGY-Hives Verified 10/19/19 17:12 tetracycline Allergy ALGY-Hives Verified 10/19/19 17:12 tetrahydrozoline Allergy ADR-Swelling Verified 10/19/19 17:12 [From Visine] of the Eye PFSH Acute PFSH: Medical History Atrial fibrillation Chronic anemia Chronic kidney disease, stage III (moderate) Crohn's disease Hyperaldosteronism Hypersomnia Hypokalemia Local infection due to Port-A-Cath Myocardial infarction (lateral wall) Pressure ulcer of sacral region, unspecified stage Severe protein-calorie malnutrition Systolic congestive heart failure Surgical History H/O ileostomy H/O total colectomy History of delivery x4 Hx of appendectomy Port-A-Cath in place (10/12/19) right IJ Family History Other CAD (coronary artery disease) Cancer Congestive heart failure Diabetes Hyperlipidemia Social History Smoking and tobacco status: never smoked Second hand smoke exposure: No Alcohol intake: never Lives independently: Yes Household members: spouse Marital status: Current occupational status: retired History of recent travel: No Current gender identity: Female Vitals/I&O/Wt Last Vital Signs Temp 98.7 F 10/25/19 13:00 Pulse 85 10/25/19 13:00 Resp 12 10/25/19 13:00 BP 90/50 10/25/19 13:00 Pulse Ox 99 10/25/19 13:00 10/24/19 10/25/19 10/25/19 22:59 06:59 14:59 Intake Total 200 / 200 1072.083 / 1072.083 Output Total 300 / 300 200 / 200 Balance -100 / -100 872.083 / 872.083 Weight last 48 hrs Weight 29.484 kg Physical Exam Const: COMMON NORMALS: no acute distress, patient oriented x3 and alert HENMT: COMMON NORMALS: normocephalic and atraumatic HEAD & SCALP: normocephalic and atraumatic Eye: COMMON NORMALS: EOMs intact bilaterally, conjunctivae normal and no scleral icterus CONJUNCTIVA: Yes conjunctivae normal Neck/C-Spine: COMMON NORMALS: no lymphadenopathy and no meningeal signs Lymph: LYMPHATIC: no lymphadenopathy noted Chest: COMMONS NORMALS: normal palpation of entire chest wall Resp: COMMON NORMALS: No use of accessory muscles and clear to auscultation bilaterally AUSCULTATION: clear to auscultation bilaterally Cardio: COMMON NORMALS: regular rate, regular rhythm and No murmurs present (Cardio) RATE: regular rate RHYTHM: regular rhythm OTHER: No lower extremity edema GI: COMMON NORMALS: Soft to palpation and non-tender PALPATION: Yes Soft to palpation RECTAL EXAM: deferred OTHER: Functioning ostomy. Abdomen is scaphoid. : COMMON NORMALS: Yes no CVA tenderness BLADDER/KIDNEY EXAM: Yes no CVA tenderness Back/Pelvis: COMMON NORMALS: no CVA tenderness and thoracic and lumbar spine normal to inspection Extremity: COMMON NORMALS: normal to inspection and capillary refill normal Neuro: COMMON NORMALS: patient oriented x3 and no focal motor deficits SENSORIUM/ORIENTATION: Yes alert MENINGEAL SIGNS: Yes no meningeal signs Psych: COMMON NORMALS: mental status grossly normal, Normal thought process present and cooperative THOUGHT PROCESS: Normal thought process present Skin: NARRATIVE SKIN EXAM: Large necrotic coccygeal ulcer without evidence of infection. She is very cachectic and appears malnourished. GENERAL SKIN EXAM: no rashes or lesions noted Data : 10/25/19 03:40 10/25/19 03:40 Micro: Microbiology 10/25/19 00:35 Blood Culture - Preliminary Blood Gram Negative Rods 10/25/19 00:40 Blood Culture - Preliminary Blood Gram Negative Rods A&P Assessment and plan (1) Failure to thrive: Status: Acute (2) COVID-19: Status: Acute (3) Pressure ulcer of sacral region, unspecified stage: Status: Acute (4) Bacteremia: Status: Acute (5) Severe protein-calorie malnutrition: Status: Acute (6) Crohn's disease: Status: Acute Qualifiers: Digestive disease complication type: unspecified complication Gastrointestinal tract location: unspecified location Qualified Code(s): K50.919 - Crohn's disease, unspecified, with unspecified complications (7) Chronic kidney disease, stage III (moderate): Status: Acute (8) Dehydration with hyponatremia: Status: Acute (9) Hypomagnesemia: Status: Acute (10) Hypokalemia: Status: Acute Additional A&P Information PLAN: Start patient on Levaquin and Primaxin considering patient's allergy list. Patient's gram-negative bacteremia is concerning for intra-abdominal process including possibly malignancy as she does not appear to have acute abdomen. Will hydrate with LR at 30 mL/h given her size and replete potassium and magnesium. Will use Santyl dressing for necrotic wound. Patient will need to have further outpatient follow-up with wound care clinic. If creatinine improves consider CT scan with IV contrast for further evaluation of suspected malignancy. Patient does not want to have Ensure. Will request dietitian consultation. Patient's CODE STATUS is full code. Patient does not want to consider nursing facility placement. Reports that she will be staying with her daughter in [place] when ready to be discharged. Agreed to have home health for physical therapy. Attestations Medical Necessity Statement*: Patient with bacteremia and failure to thrive requires close ICU monitoring and treatment. I expect patient will require more than 2 midnights. 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
[2019-10-25] MEDS: lactated ringers 1,000 ML 30 ML IV (16:06)
[2019-10-25] MEDS: levofloxacin-dextrose 5 % 500 MG/100 ML PREMIX 100 MG IV (16:06)
[2019-10-25] MEDS: ondansetron 2 mg/ML SDV 2 mL 4 MG IVP (16:44)
[2019-10-25] MEDS: potassium chloride oral liq 20 mEq/15 mL UDC PO (17:16)
[2019-10-26] VITALS (15 sets, daily range): BP systolic 96–119; BP diastolic 51–58; PULSE 78–89; RESP 16–22; TEMP 30.5–36.9; O2SAT 90–100
[2019-10-26 01:01] LABS: Add Urine Microscopic? NO
[2019-10-26 02:15] LABS: Bilirubin Urine Neg (NEGATIVE); Blood Urine Neg (Negative); Glucose Urine UA Norm (Normal); Ketones Urine 1+ (Negative); Leukocyte Esterase Urine Negative (Negative); Nitrate Urine Negative (Negative); Protein Urine Neg (Negative); Sulfosalicylic Acid Urine Negative (Negative); Urine Appearance Clear (CLEAR); Urine Color Dark Yellow (Yellow); Urobilinogen Urine Norm (Negative); pH Urine 9 (5-7)
[2019-10-26] MEDS: HYDROcodone-acetaminophen 5-325 mg Tablet 1 TAB PO ×3 (05:55→19:52)
[2019-10-26 06:39] LABS: Eosinophils % 0.4 %; Hematocrit 25.1 % (37.0-47.0); Hemoglobin 7.7 g/dL (11.5-15.3); Lymphocytes # 0.7 10^3/uL (0.8-4.8); Mean Corpuscular HGB Conc 30.7 g/dL (30.0-36.0); Mean Corpuscular Hemoglobin 28.7 pg (28.0-34.0); Mean Corpuscular Volume 93.7 fL (81-99); Monocytes # 0.3 10^3/uL (0.2-0.9); Neutrophils # 5.68 10^3/uL (1.8-7.7); Neutrophils % 85.2 %; Nucleated Red Blood Cells % 0 %; Platelet Count 196 10^3/cmm (130-400); Red Blood Count 2.68 10^6/uL (4.1-5.3); Red Cell Distribution Width 16.9 % (12.1-15.1); White Blood Count 6.7 10^3/uL (4.0-10.0)
--- NOTE | 2019-10-26 06:48 | PM.PN ---
Subjective Subjective: Interval history: Patient is a little upset this morning because of her 's . Reports that she misses him. Reports that her right arm hurts but otherwise denies chest pain, abdominal pain or shortness of breath. Hemoglobin is down to 7.7. CMP currently pending. Vitals/I&O/Wt Last Vital Signs Temp 97.6 F 10/26/19 04:00 Pulse 88 10/26/19 05:00 Resp 22 H 10/26/19 03:00 BP 100/52 10/26/19 05:00 Pulse Ox 96 10/26/19 05:00 10/25/19 10/25/19 10/26/19 14:59 22:59 06:59 Intake Total 3072.083 / 3072.083 330 / 3402.083 50 / 3452.083 Output Total 200 / 200 500 / 700 Balance 2872.083 / 2872.083 -170 / 2702.083 50 / 2752.083 Weight last 48 hrs Weight 29.484 kg Physical Exam Const: COMMON NORMALS: no acute distress and patient oriented x3 Resp: COMMON NORMALS: normal respiratory effort and clear to auscultation bilaterally AUSCULTATION: clear to auscultation bilaterally Cardio: COMMON NORMALS: regular rate, regular rhythm and S2 normal heart sound present RATE: regular rate RHYTHM: regular rhythm HEART SOUNDS: S2 normal heart sound present OTHER: No lower extremity edema GI: COMMON NORMALS: Normal to inspection, nondistended, normoactive bowel sounds present, Soft to palpation and non-tender PALPATION: Yes Soft to palpation Neuro: COMMON NORMALS: patient oriented x3 and no focal motor deficits Data : 10/26/19 05:50 10/25/19 03:40 Micro: Microbiology 10/26/19 05:50 Blood Culture - Preliminary Blood SPECIMEN COLLECTED 10/26/19 05:55 Blood Culture - Preliminary Blood SPECIMEN COLLECTED 10/25/19 00:35 Blood Culture - Preliminary Blood Gram Negative Rods 10/25/19 00:40 Blood Culture - Preliminary Blood Gram Negative Rods A&P Assessment and plan (1) Failure to thrive: Status: Acute (2) COVID-19: Status: Acute (3) Pressure ulcer of sacral region, unspecified stage: Status: Acute (4) Bacteremia: Status: Acute (5) Severe protein-calorie malnutrition: Status: Acute (6) Crohn's disease: Status: Acute Qualifiers: Digestive disease complication type: unspecified complication Gastrointestinal tract location: unspecified location Qualified Code(s): K50.919 - Crohn's disease, unspecified, with unspecified complications (7) Chronic kidney disease, stage III (moderate): Status: Acute (8) Dehydration with hyponatremia: Status: Acute (9) Hypomagnesemia: Status: Acute (10) Hypokalemia: Status: Acute Additional A&P Information PLAN: Continue current monitoring and treatment. If kidney function improves consider CT scan of abdomen and pelvis with contrast. Monitor CBC. Patient does not want to consider nursing facility placement. Reports that she will be staying with her daughter in [place] when ready to be discharged. Agreed to have home health for physical therapy. Attestations Medical Necessity Statement*: Patient with COVID-19 and failure to thrive requires hospitalization until appropriate discharge is arranged. Coding Level of Care Code Acute Psychologist Experimental for [facility] Fwd Diagnoses Failure to thrive COVID-19 U07.1 Pressure ulcer of sacral region, unspecified stage L89.159 Bacteremia R78.81 Severe protein-calorie malnutrition E43 Crohn's disease K50.919 Digestive disease complication type: unspecified complication Gastrointestinal tract location: unspecified location Chronic kidney disease, stage III (moderate) N18.3 Dehydration with hyponatremia E86.0; E87.1 Hypomagnesemia E83.42 Hypokalemia E87.6
[2019-10-26 07:04] LABS: Alanine Aminotransferase 18 U/L (0-33); Albumin Level 2.7 g/dL (3.5-5.2); Alkaline Phosphatase 132 IU/L (35-105); Anion Gap 10.6 (5-19); Aspartate Amino Transferase 37 U/L (0-32); Blood Urea Nitrogen 23 mg/dL (8-23); Calcium 8.5 mg/dL (8.5-10.5); Carbon Dioxide 29 mmol/L (22-29); Chloride 95 mmol/L (98-107); Globulin 3.1 g/dL (1.3-4.6); Glomerular Filtration Rate 44.4 mL/min (90-130); Glucose 104 mg/dL (65-115); Magnesium 1.2 mg/dL (1.7-2.3); Osmolality Calculated 267 mOsm/kg (285-295); Potassium 4.6 mmol/L (3.5-5.1); Sodium 130 mmol/L (136-145); Total Bilirubin 0.4 mg/dL (0.15-1.2); Total Protein 5.8 g/dL (6.6-8.7)
[2019-10-26 11:18] LABS: Glucose Point of Care 99 mg/dL (70-110)
[2019-10-26] MEDS: aspirin 81 mg EC Tablet PO (12:05)
[2019-10-26] MEDS: collagenase oint 30 gm 1 APPLIC TOPICAL (12:05)
[2019-10-26] MEDS: magnesium sulfate premix 2 GM/50 ML PIGGYBACK IV (12:06)
[2019-10-26] MEDS: magnesium sulfate premix 4 GM/100 ML PREMIX IV (12:06)
[2019-10-26] MEDS: potassium chloride oral liq 20 mEq/15 mL UDC PO (12:06)
[2019-10-26] MEDS: heparin 5,000 unit/mL INJ 1 mL 5000 UNIT SUBCUT ×2 (14:11→21:25)
[2019-10-26 15:47] LABS: Glucose Point of Care 95 mg/dL (70-110)
--- NOTE | 2019-10-26 17:56 | PC.NURSE ---
optifoam saturated at 10 am and 1700 , dressing changed with santyl. and extra foam on left pelvic area due to redness and pressure. ostomy chaged at 1030 due to large amount of leakage. stomapaste used and apparatus has worked for several hours. barrier cream put on areas outside the dressing to protect from stool overflow. patient was pleasant and cooperative once the skin was cleaned of stool but was pained and burned whenever touched. patient refuses to lay on right side due to shoulder pain. supine, flat and left side, pillow b/w legs. poor appetite.
[2019-10-26 22:02] LABS: Glucose Point of Care 106 mg/dL (70-110)
[2019-10-27] VITALS (18 sets, daily range): BP systolic 83–121; BP diastolic 42–65; PULSE 70–129; RESP 16–22; TEMP 36.6–37.7; O2SAT 89–100
[2019-10-27] MEDS: heparin 5,000 unit/mL INJ 1 mL 5000 UNIT SUBCUT ×3 (03:34→20:24)
[2019-10-27 06:10] LABS: Eosinophils # 0.1 10^3/uL (0.0-0.8); Eosinophils % 2.3 %; Hematocrit 24.1 % (37.0-47.0); Hemoglobin 7.4 g/dL (11.5-15.3); Lymphocytes # 0.6 10^3/uL (0.8-4.8); Lymphocytes % 13.8 %; Mean Corpuscular HGB Conc 30.7 g/dL (30.0-36.0); Mean Corpuscular Hemoglobin 28.7 pg (28.0-34.0); Mean Corpuscular Volume 93.4 fL (81-99); Mean Platelet Volume 11.5 fL (7.4-10.4); Monocytes # 0.2 10^3/uL (0.2-0.9); Neutrophils # 3.46 10^3/uL (1.8-7.7); Neutrophils % 78.4 %; Nucleated Red Blood Cells % 0 %; Platelet Count 187 10^3/cmm (130-400); Red Blood Count 2.58 10^6/uL (4.1-5.3); White Blood Count 4.4 10^3/uL (4.0-10.0)
[2019-10-27 06:24] LABS: Alanine Aminotransferase 13 U/L (0-33); Albumin Level 2.8 g/dL (3.5-5.2); Alkaline Phosphatase 90 IU/L (35-105); Anion Gap 10.5 (5-19); Aspartate Amino Transferase 23 U/L (0-32); Blood Urea Nitrogen 17 mg/dL (8-23); Calcium 8.1 mg/dL (8.5-10.5); Carbon Dioxide 27 mmol/L (22-29); Chloride 97 mmol/L (98-107); Glomerular Filtration Rate 61.9 mL/min (90-130); Glucose 92 mg/dL (65-115); Magnesium 2.8 mg/dL (1.7-2.3); Osmolality Calculated 266 mOsm/kg (285-295); Potassium 4.5 mmol/L (3.5-5.1); Sodium 130 mmol/L (136-145); Total Bilirubin 0.3 mg/dL (0.15-1.2); Total Protein 5.8 g/dL (6.6-8.7)
--- NOTE | 2019-10-27 07:23 | CT_ITS ---
WS: [id number] CT ABDOMEN PELVIS TECHNIQUE: Contrast-enhanced CT of the abdomen and pelvis with coronal and sagittal reformatted image s. CLINICAL INFORMATION: gram neg bacteremia. looking for source. COMPARISON: CT June 29, 2019 DLP: 207.[address] scans at [facility] use at least one of these dose optimization techniques: automat ed exposure control; mA and/or kV adjustment per patient size (includes targeted exams where dose is matched to clinical indication); or iterative reconstruction. FINDINGS: Paucity of intra-abdominal fat limits evaluation. Right ROMEO degrades images in the pelvis. Prior colectomy. Small bowel ostomy in the right lower quadrant. Mild diffuse fatty infiltration of the liver. Portal vein and splenic vein are patent. Normal spleen. Lung bases are well aerated. Previously described 6 mm nodule in the right lower lobe has decreased in size today measuring 3 mm. Adrenal glands are normal. Normal renal parenchymal enhancement. No hydronephrosis. Mild bilateral re nal cortical atrophy. Normal caliber abdominal aorta. Aortic calcification. Postoperative changes right ROMEO. A few air-fluid levels and fluid-filled small bowel in the midabdome n and stomach. No evidence of free air. Findings can be seen with partial small bowel obstruction oskar crystal adynamic ileus. Mild diffuse body wall anasarca with mesenteric edema.. Small amount of free flui d in the pelvis. Mild lumbar curve. Grade 1 anterolisthesis L5 on S1 with disc space narrowing. Bilateral L5-S1 spondy lolysis. Mild chronic appearing compression superior endplate L1. Bilateral healed pubic rami fractures. Osteopenia. CT/CT abdomen pelvis w con* [id number] IMPRESSION: 1. Previously described 6 mm pulmonary nodule right lower lobe is decreased in size today measuring only 3 mm. 2. Slightly distended small bowel with air-fluid levels in the midabdomen susp icious for developing small bowel obstruction versus adynamic ileus. Prior sydnie ctomy. 3. Right lower quadrant small bowel ostomy 4. Mild diffuse body wall anasarca with mesenteric edema. 5. Prior postoperative changes in the sigmoid colon. 6. Right ROMEO degrades images in the pelvis. 7. Small amount of free fluid in the cul-de-sac.
[2019-10-27 08:01] LABS: Glucose Point of Care 116 mg/dL (70-110)
[2019-10-27] MEDS: HYDROcodone-acetaminophen 5-325 mg Tablet 1 TAB PO ×2 (08:16→16:59)
[2019-10-27] MEDS: iohexol 300 mg/mL 100 mL Btl IV (09:22)
[2019-10-27] MEDS: aspirin 81 mg EC Tablet PO (09:59)
[2019-10-27] MEDS: potassium chloride ER 10 mEq Tablet 40 MEQ PO (09:59)
[2019-10-27] MEDS: collagenase oint 30 gm 1 APPLIC TOPICAL (10:00)
[2019-10-27] MEDS: LORazepam 2 mg/mL INJ 1 mL IVP (10:01)
--- NOTE | 2019-10-27 11:30 | PM.PN ---
Subjective Subjective: Interval history: Patient denies shortness of breath or chest pain this morning. Denies abdominal pain. Eats minimally. Hemoglobin slightly down to 7.4. She had CT scan of abdomen pelvis showing findings concerning for small bowel obstruction. Her pulmonary nodule is decreasing in size. She has ostomy output and denies nausea. Repeat blood cultures so far negative. Vitals/I&O/Wt Last Vital Signs Temp 98.7 F 10/27/19 08:00 Pulse 79 10/27/19 06:30 Resp 17 10/27/19 06:30 BP 107/53 10/27/19 06:30 Pulse Ox 100 10/27/19 06:30 10/26/19 10/27/19 10/27/19 22:59 06:59 14:59 Intake Total 300 / 800 200 / 1000 300 / 300 Output Total 400 / 400 Balance -100 / 400 200 / 600 300 / 300 Weight last 48 hrs Weight 28.661 kg Weight 29.302 kg Physical Exam Const: COMMON NORMALS: no acute distress and patient oriented x3 Resp: COMMON NORMALS: normal respiratory effort and clear to auscultation bilaterally AUSCULTATION: clear to auscultation bilaterally Cardio: COMMON NORMALS: regular rate, regular rhythm and S2 normal heart sound present RATE: regular rate RHYTHM: regular rhythm HEART SOUNDS: S2 normal heart sound present OTHER: No lower extremity edema GI: COMMON NORMALS: Normal to inspection, nondistended, normoactive bowel sounds present, Soft to palpation and non-tender PALPATION: Yes Soft to palpation OTHER: Ostomy with liquid output. Neuro: COMMON NORMALS: patient oriented x3 and no focal motor deficits Data : 10/27/19 04:30 10/27/19 04:30 Micro: Microbiology 10/26/19 05:55 Blood Culture - Preliminary Blood NEGATIVE TO DATE 10/26/19 05:50 Blood Culture - Preliminary Blood NEGATIVE TO DATE A&P Assessment and plan (1) Failure to thrive: Status: Acute (2) COVID-19: Status: Acute (3) Pressure ulcer of sacral region, unspecified stage: Status: Acute (4) Bacteremia: Status: Acute (5) Severe protein-calorie malnutrition: Status: Acute (6) Crohn's disease: Status: Acute Qualifiers: Digestive disease complication type: unspecified complication Gastrointestinal tract location: unspecified location Qualified Code(s): K50.919 - Crohn's disease, unspecified, with unspecified complications (7) Chronic kidney disease, stage III (moderate): Status: Acute (8) Dehydration with hyponatremia: Status: Acute (9) Hypomagnesemia: Status: Acute (10) Hypokalemia: Status: Acute Additional A&P Information PLAN: Continue current monitoring and treatment. Since repeat blood cultures remain negative we will try transitioning to oral antibiotics on discharge depending on culture result. Awaiting culture results. Social workers are working on disposition. Attestations Medical Necessity Statement*: Patient with COVID-19 and bacteremia requires close ICU monitoring and treatment until deemed safe for transfer/discharge. 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
--- NOTE | 2019-10-27 13:08 | PC.NURSE ---
PATIENT BECAME MORE SLUGGISH AFTER HER ATIVAN, SHE DID EAT THE NORMAL AMOUNT OF HER LUNCH BUT FELL ASLEEP WITH HER NECK BENT. DRESSINGS CHANGED 1000 AM APPEAR INTACT AT 1300. OPTIFOAM PLACED OVER TEA PROMINENCES LIKE HER ELBOWS AND HIP BONES. ONCE HER NECK WAS NOT FLEXED DOWNWARD. SATS IMPROVED ONCE NECK STRAIGHTENED AND REPOSITIONED. ILEOSTOMY DRAINED FOR THE SECOND TIME. NOTED HER HEART RATE WAS ELEVATED IN THE 1 TEENS , HER INTAKE HAS BEEN POOR, 500 CC SLOW BOLUS GIVEN WITH IMPROVED HEART RATE IN 10 MINS, NOTED ELEVATION IN TEMP. AT THIS TIME TO 99.7. DAUGHTER UPDATED EARLY IN THE SHIFT AFTER HER CT SCAN. SHE FELT THAT HER MOM WOULD BENEFIT IN GETTING THE ANTIDEPRESSANT SHE HAD AT [facility]. SHE FELT IT STARTED WITH A C. ORAL CARE OF HER DENTURES PERFORMED, SHE REFUSED A BATH BUT HER FACE AND PERICARE WAS GIVEN.
[2019-10-27] MEDS: levofloxacin-dextrose 5 % 500 MG/100 ML PREMIX 100 MG IV (16:20)
[2019-10-27 16:41] LABS: Glucose Point of Care 133 mg/dL (70-110)
[2019-10-27 21:59] LABS: Glucose Point of Care 80 mg/dL (70-110)
[2019-10-28] VITALS (24 sets, daily range): BP systolic 92–127; BP diastolic 42–78; PULSE 77–98; RESP 16–18; TEMP 36.4–37.2; O2SAT 97–100
[2019-10-28] MEDS: ondansetron 2 mg/ML SDV 2 mL 4 MG IVP (03:14)
[2019-10-28] MEDS: HYDROcodone-acetaminophen 5-325 mg Tablet 1 TAB PO ×4 (03:15→20:15)
[2019-10-28] MEDS: heparin 5,000 unit/mL INJ 1 mL 5000 UNIT SUBCUT ×3 (03:18→20:13)
[2019-10-28 05:17] LABS: Basophils % 0.1 %; Eosinophils # 0.1 10^3/uL (0.0-0.8); Eosinophils % 1.2 %; Hematocrit 23.4 % (37.0-47.0); Hemoglobin 7.1 g/dL (11.5-15.3); Lymphocytes # 0.5 10^3/uL (0.8-4.8); Lymphocytes % 6.6 %; Mean Corpuscular HGB Conc 30.3 g/dL (30.0-36.0); Mean Corpuscular Hemoglobin 28.5 pg (28.0-34.0); Mean Platelet Volume 11.1 fL (7.4-10.4); Monocytes # 0.3 10^3/uL (0.2-0.9); Monocytes % 3.8 %; Neutrophils % 87.9 %; Nucleated Red Blood Cells % 0 %; Platelet Count 206 10^3/cmm (130-400); Red Blood Count 2.49 10^6/uL (4.1-5.3); Red Cell Distribution Width 17.2 % (12.1-15.1); White Blood Count 7.3 10^3/uL (4.0-10.0)
[2019-10-28 05:43] LABS: D Dimer 6.86 ug/mIFEU (0-0.59)
[2019-10-28 05:44] LABS: Alanine Aminotransferase 12 U/L (0-33); Albumin Level 2.5 g/dL (3.5-5.2); Alkaline Phosphatase 106 IU/L (35-105); Anion Gap 10.5 (5-19); Aspartate Amino Transferase 19 U/L (0-32); Blood Urea Nitrogen 11 mg/dL (8-23); Calcium 7.6 mg/dL (8.5-10.5); Carbon Dioxide 24 mmol/L (22-29); Chloride 99 mmol/L (98-107); Globulin 2.8 g/dL (1.3-4.6); Glomerular Filtration Rate 70.9 mL/min (90-130); Glucose 91 mg/dL (65-115); Magnesium 1.7 mg/dL (1.7-2.3); Osmolality Calculated 264 mOsm/kg (285-295); Potassium 4.5 mmol/L (3.5-5.1); Sodium 129 mmol/L (136-145); Total Bilirubin 0.3 mg/dL (0.15-1.2); Total Protein 5.3 g/dL (6.6-8.7)
[2019-10-28 05:58] LABS: Folate Level 6.7 ng/mL (4.8-37.3); Iron 26 ug/dL (37-145); Percent Saturation 20.9 % (20-50); Total Iron Binding Capacity 124 mcg/dl; Unsaturated Iron Binding 98 ug/dL (112-347); Vitamin B12 478 pg/mL (232-1245)
[2019-10-28 06:18] LABS: Ferritin 1072 ng/mL (15-150)
--- NOTE | 2019-10-28 08:31 | P.PN_ITS ---
Subjective Subjective: Interval history: Patient denies shortness of breath or chest pain this morning. Denies abdominal pain but started having greenish diarrheal bowel movements through ostomy. No evidence of melena or hematochezia. She continues to eat poorly. Her back wound responding well to Santyl. Wound bed appears good but still has some necrotic tissue requiring further Santyl treatment and surgical debridement down the road. Her wound does not appear infected. She has minimal discomfort in her right arm post fracture but otherwise denies significant pain. Right arm is very bruised. Hemoglobin is down to 7.1. Ferritin is getting better. Social workers discussed with patient family yesterday. They have concern for patient being covered 19+ and daughter does not want patient to stay with her unless she completely recovered. It is absolutely unsafe for patient to go home and live by herself. Vitals/I&O/Wt Last Vital Signs Temp 98.4 F 10/28/19 04:00 Pulse 85 10/28/19 06:00 Resp 17 10/28/19 06:00 BP 105/63 10/28/19 06:00 Pulse Ox 98 10/28/19 06:00 10/27/19 10/28/19 10/28/19 22:59 06:59 14:59 Intake Total 450 / 1350 50 / 1400 Output Total 150 / 500 350 / 850 Balance 300 / 850 -300 / 550 Weight last 48 hrs Weight 28.576 kg Weight 28.661 kg Physical Exam Const: COMMON NORMALS: no acute distress and patient oriented x3 Resp: COMMON NORMALS: normal respiratory effort and clear to auscultation bilaterally (But overall significant decreased air movement throughout.) AUSCULTATION: clear to auscultation bilaterally (But overall significant decreased air movement throughout.) Cardio: COMMON NORMALS: regular rate, regular rhythm and S2 normal heart sound present RATE: regular rate RHYTHM: regular rhythm HEART SOUNDS: S2 normal heart sound present OTHER: No lower extremity edema GI: COMMON NORMALS: Normal to inspection, nondistended, normoactive bowel sounds present, Soft to palpation and non-tender PALPATION: Yes Soft to palpation OTHER: Ostomy functioning well. Neuro: COMMON NORMALS: patient oriented x3 and no focal motor deficits Data : 10/28/19 04:05 10/28/19 04:05 Micro: Microbiology 10/25/19 00:40 Blood Culture - Preliminary Blood Proteus vulgaris 10/25/19 00:35 Blood Culture - Preliminary Blood Proteus vulgaris 10/26/19 05:55 Blood Culture - Preliminary Blood NEGATIVE TO DATE 10/26/19 05:50 Blood Culture - Preliminary Blood NEGATIVE TO DATE A&P Assessment and plan (1) Failure to thrive: Status: Acute (2) COVID-19: Status: Acute (3) Pressure ulcer of sacral region, unspecified stage: Patient will need to have outpatient follow-up with wound care clinic for surgical debridement. For now we will continue Santyl. No evidence of infection. Status: Acute (4) Bacteremia: With Proteus vulgaris susceptible to quinolones. Status: Acute (5) Severe protein-calorie malnutrition: Status: Acute (6) Crohn's disease: Status: Acute Qualifiers: Digestive disease complication type: unspecified complication Gastrointestinal tract location: unspecified location Qualified Code(s): K50.919 - Crohn's disease, unspecified, with unspecified complications (7) Chronic kidney disease, stage III (moderate): Status: Acute (8) Dehydration with hyponatremia: Status: Acute (9) Hypomagnesemia: Status: Acute (10) Hypokalemia: Status: Acute Additional A&P Information PLAN: Continue current monitoring and treatment. Discontinue Primaxin and continue Levaquin dosed renally and per patient's weight. We will check stool for evidence of C. difficile. Overall patient appears to have very poor long-term prognosis Attestations Medical Necessity Statement*: Patient with failure to thrive and COVID-19 infection requires close viral ICU monitoring and treatment until deemed safe for discharge. Time Spent in Patient Care: 16 - 35 minutes Coding Level of Care Code Acute [employer] for [facility] Fwd Diagnoses Failure to thrive COVID-19 U07.1 Pressure ulcer of sacral region, unspecified stage L89.159 Bacteremia R78.81 Severe protein-calorie malnutrition E43 Crohn's disease K50.919 Digestive disease complication type: unspecified complication Gastrointestinal tract location: unspecified location Chronic kidney disease, stage III (moderate) N18.3 Dehydration with hyponatremia E86.0; E87.1 Hypomagnesemia E83.42 Hypokalemia E87.6
[2019-10-28] MEDS: potassium chloride ER 10 mEq Tablet 40 MEQ PO (09:07)
[2019-10-28] MEDS: sodium chloride 0.9% 1,000 ML 30 ML IV (09:07)
[2019-10-28] MEDS: collagenase oint 30 gm 1 APPLIC TOPICAL (09:07)
[2019-10-28] MEDS: aspirin 81 mg EC Tablet PO (09:09)
--- NOTE | 2019-10-28 10:47 | PC.SOCIAL ---
IMM Page 2 of [facility] explained to patient's daughter Brionna by phone. Phone number provided for [employer]. Initialed, dated, and timed and placed in chart. Copy provided to patient.
[2019-10-28] MEDS: magnesium sulfate premix 2 GM/50 ML PIGGYBACK IV (11:20)
[2019-10-28 16:20] LABS: Glucose Point of Care 176 mg/dL (70-110)
--- NOTE | 2019-10-28 17:19 | PC.NURSE ---
NOTIFIED THAT STOOL SAMPLE IS POSITIVE FOR CDIFF, PATIENT AWARE, DR AWARE, AND SURGERY AID AWARE. PATIENT ANXIOUS TO SEE HER HUSBANDS FACE AGAIN. DAUGHTERS WORRIED THAT ONE SISTER IS OUT FOR MONEY, ONE HAS CANCER AND SHOULD NOT BE EXPOSED TO INFECTIOUS ISSUES, AND ONE IS AWAY IN [facility] DROPPING OFF HER DAUGHTER AT SCHOOL. ORAL VANCO STARTED. DRESSING TO COCCYX CHANGED 3X TODAY, OPTIFOAM PLACED ON ANKLE AT PATIENT REQUEST DUE TO SORENESS. SHE APPEARS TO BE EATING BETTER . IV TUBING CHANGED OUT TODAY. BARROW NEEDLE NEEDS REPLACED COME THURSDAY. VOIDED PER BEDPAN X2 TODAY. USING CALL LIGHT MORE OFTEN. TALKING MORE, SMILING OCCASSIONALLY.
--- NOTE | 2019-10-28 17:52 | PC.NURSE ---
AG ROWE RN PATIENTS DAUGHTER [phone]. SHE CALLED TO INFORM ME THAT SHE HAS TALKED TO [facility] AND SHE WILL COME [facility] NURSE HER MOM WHENEVER SHES READY. HER WHEELCHAIR IS BEING PUT IN HER CAR I WRITE THIS. MRS ROWE IS AWARE OF THE CDIFF ISSUE WELL THE COVID. HER SISTERS HAVE EXPRESSED THAT THEY WERE CONCERNED SHE WOULD COME AND TAKE DEBRA OUT OF THE HOSPITAL, BUT THEY ALSO WANT HER TO BE DISCHARGED SO THEY CAN PLAN THE . MRS ROWE IS AWARE OF THE SEVERITY AND DANGER AND INFECTIOUSNESS OF CDIFF AND WILL TRY AND EXPLAIN IT TO HER SISTERS BUT IS ONLY USING TEXT WITH THEM. SHE WAS ENCOURAGED TO CALL AND TALK TO HER SISTERS TO EXPLAIN HER AVAILABILITY AND KNOWLEGE WOULD GIVE DEBRA HER DREAM OF GOING TO HER OWN HOME.
[2019-10-28 20:48] LABS: Glucose Point of Care 187 mg/dL (70-110)
[2019-10-29] VITALS (17 sets, daily range): BP systolic 108–135; BP diastolic 47–65; PULSE 73–94; RESP 16–18; TEMP 36.2–36.8; O2SAT 100
[2019-10-29] MEDS: ondansetron 2 mg/ML SDV 2 mL 4 MG IVP (01:29)
[2019-10-29] MEDS: heparin 5,000 unit/mL INJ 1 mL 5000 UNIT SUBCUT ×2 (03:52→13:14)
[2019-10-29] MEDS: HYDROcodone-acetaminophen 5-325 mg Tablet 1 TAB PO ×2 (03:53→13:40)
[2019-10-29 04:54] LABS: Eosinophils # 0.2 10^3/uL (0.0-0.8); Eosinophils % 3.3 %; Hematocrit 24.4 % (37.0-47.0); Hemoglobin 7.5 g/dL (11.5-15.3); Lymphocytes # 0.7 10^3/uL (0.8-4.8); Lymphocytes % 14.7 %; Mean Corpuscular HGB Conc 30.7 g/dL (30.0-36.0); Mean Corpuscular Hemoglobin 29.1 pg (28.0-34.0); Mean Corpuscular Volume 94.6 fL (81-99); Mean Platelet Volume 10.5 fL (7.4-10.4); Monocytes # 0.4 10^3/uL (0.2-0.9); Monocytes % 8.2 %; Neutrophils # 3.29 10^3/uL (1.8-7.7); Neutrophils % 73.1 %; Nucleated Red Blood Cells % 0 %; Platelet Count 270 10^3/cmm (130-400); Red Blood Count 2.58 10^6/uL (4.1-5.3); Red Cell Distribution Width 17.2 % (12.1-15.1); White Blood Count 4.5 10^3/uL (4.0-10.0)
[2019-10-29 05:17] LABS: Alanine Aminotransferase 11 U/L (0-33); Albumin Level 2.5 g/dL (3.5-5.2); Alkaline Phosphatase 111 IU/L (35-105); Anion Gap 7.4 (5-19); Aspartate Amino Transferase 15 U/L (0-32); Blood Urea Nitrogen 10 mg/dL (8-23); Calcium 8.2 mg/dL (8.5-10.5); Carbon Dioxide 24 mmol/L (22-29); Chloride 102 mmol/L (98-107); Creatinine Clr Calc Pharmacy 26.2388; Globulin 2.9 g/dL (1.3-4.6); Glomerular Filtration Rate 61.9 mL/min (90-130); Glucose 89 mg/dL (65-115); Magnesium 2.1 mg/dL (1.7-2.3); Osmolality Calculated 263 mOsm/kg (285-295); Potassium 4.4 mmol/L (3.5-5.1); Sodium 129 mmol/L (136-145); Total Bilirubin 0.3 mg/dL (0.15-1.2); Total Protein 5.4 g/dL (6.6-8.7)
[2019-10-29 09:21] LABS: Glucose Point of Care 81 mg/dL (70-110)
[2019-10-29] MEDS: collagenase oint 30 gm 1 APPLIC TOPICAL (10:25)
[2019-10-29] MEDS: aspirin 81 mg EC Tablet PO (10:27)
[2019-10-29] MEDS: potassium chloride ER 10 mEq Tablet 40 MEQ PO (10:27)
--- NOTE | 2019-10-29 10:29 | PC.NURSE ---
Pt c/o nausea. Denied prn meds for nausea. Requested to hold off on meds at that time. Repositioned pt. Tolerated fair. Emptied colostomy bag. Dressings changed per protocol while waiting for nausea to subside. Pt tolerated fair. Pt requested no visiting or chit chat. Would rather I focus on getting her hot tea to drink. Warm tea provided. No S/S of distress. Pt states nausea has subsided and able to take meds at this time.
--- NOTE | 2019-10-29 10:35 | P.DS_ITS ---
Discharge Providers Date of Admission: 10/25/19 01:35 Date of Discharge: October 29, 2019 Attending Provider at Admission: Deepak Parada MD Attending Provider at Discharge: Jeb Montenegro MD Primary Care Provider: Veda Gilman MD Diagnoses at Discharge Discharge Diagnosis (1) Failure to thrive: Status: Acute (2) COVID-19: Status: Acute (3) Pressure ulcer of sacral region, unspecified stage: Status: Acute (4) Bacteremia: Status: Acute (5) Severe protein-calorie malnutrition: Status: Acute (6) Crohn's disease: Status: Acute Qualifiers: Digestive disease complication type: unspecified complication Gastrointestinal tract location: unspecified location Qualified Code(s): K50.919 - Crohn's disease, unspecified, with unspecified complications (7) Chronic kidney disease, stage III (moderate): Status: Acute (8) Dehydration with hyponatremia: Status: Acute (9) Hypomagnesemia: Status: Acute (10) Hypokalemia: Status: Acute (11) C. difficile diarrhea: Status: Acute Problem details: Possibly present on admission. Reason for Visit Reason for Visit: Right Shoulder Pain Hospital Course Discharge Summary: Patient with severe protein calorie malnutrition admitted for failure to thrive. She is unable to walk. She was cared by her who unfortunately was found . Patient tested positive for COVID-19 and had Proteus vulgaris bacteremia. She was also found to have C. difficile diarrhea. She was started on Levaquin and then oral vancomycin was added. Her breathing is not affected and patient saturates in the 90s on room air and denies any shortness of breath or chest pain. CT scan of abdomen and pelvis was obtained but did not show any significant findings except possible small bowel obstruction versus adynamic ileus. Patient barely eats anything and family decided to proceed with home hospice. Patient will stay with her daughter. Patient does have large necrotic wound on her back which is improving with Santyl cream and this will be continued. I will request outpatient follow-up with wound care clinic as patient will benefit from surgical debridement. Ultimately I do not think it will be helpful much as patient is still not ambulatory. Physical Exam Const: COMMON NORMALS: no acute distress and patient oriented x3 Resp: COMMON NORMALS: normal respiratory effort and clear to auscultation bilaterally AUSCULTATION: clear to auscultation bilaterally Cardio: COMMON NORMALS: regular rate, regular rhythm and S2 normal heart sound present RATE: regular rate RHYTHM: regular rhythm HEART SOUNDS: S2 normal heart sound present OTHER: No lower extremity edema GI: COMMON NORMALS: Normal to inspection, nondistended, normoactive bowel sounds present, Soft to palpation and non-tender PALPATION: Yes Soft to pal pation OTHER: Abdomen scaphoid, ostomy functioning. Extremity: OTHER: Right upper extremity is bruised and patient was recommended to wear sling but she refuses. She is not in pain if she is not moving her right upper extremity. Neuro: COMMON NORMALS: patient oriented x3 and no focal motor deficits Discharge Data Data Completed and Pending: Completed Studies During Hospitalization Category Date Time Status CT abdomen pelvis w con* [id number] Rout ine Cat Scan 10/27/19 07:23 Completed XR chest 1V awilda ble [id number] Urgent Exams 10/24/19 23:59 Completed XR shoulder RT mi n 2V* [id number] Stat Exams 10/24/19 23:47 Completed Pending at discharge Category Date Time Status Blood Culture Rou gene Lab 10/26/19 05:50 Results Blood Culture Sta t Lab 10/25/19 00:40 Results Complete Blood Co unt w/Auto AM LABS Lab 10/30/19 04:00 Ordered Complete Blood Co unt w/Auto AM LABS Lab 10/31/19 04:00 Ordered Comprehensive Met abolic Panel AM LA BS Lab 10/30/19 04:00 Ordered Comprehensive Met abolic Panel AM LA BS Lab 10/31/19 04:00 Ordered Magnesium AM LABS Lab 10/30/19 04:00 Ordered Magnesium AM LABS Lab 10/31/19 04:00 Ordered Labs from last 24 hours 10/29/19 10/29/19 10/29/19 08:56 04:00 04:00 WBC 4.5 RBC 2.58 L Hgb 7.5 L Hct 24.4 L MCV 94.6 MCH 29.1 MCHC 30.7 RDW 17.2 H Plt Count 270 MPV 10.5 H Neut % (Auto) 73.1 Lymph % (Auto) 14.7 [place] % (Auto) 8.2 Eos % (Auto) 3.3 Baso % (Auto) 0.0 Neut # (Auto) 3.29 Lymph # (Auto) 0.7 L [place] # (Auto) 0.4 Eos # (Auto) 0.2 Baso # (Auto) 0.0 Nucleated RBC % (a uto) 0 Nucleated RBCs # 0.0 Sodium 129 L Potassium 4.4 Chloride 102 Carbon Dioxide 24 Anion Gap 7.4 BUN 10 Creatinine 0.9 GFR Calculation 61.9 L Glucose 89 POC Glucose 81 Calculated Osmolal ity 263 L Calcium 8.2 L Magnesium 2.1 Total Bilirubin 0.3 AST 15 ALT 11 Alkaline Phosphata se 111 H Total Protein 5.4 L Albumin 2.5 L Globulin 2.9 10/28/19 10/28/19 20:22 16:17 WBC RBC Hgb Hct MCV MCH MCHC RDW Plt Count MPV Neut % (Auto) Lymph % (Auto) [place] % (Auto) Eos % (Auto) Baso % (Auto) Neut # (Auto) Lymph # (Auto) [place] # (Auto) Eos # (Auto) Baso # (Auto) Nucleated RBC % (a uto) Nucleated RBCs # Sodium Potassium Chloride Carbon Dioxide Anion Gap BUN Creatinine GFR Calculation Glucose POC Glucose 187 176 Calculated Osmolal ity Calcium Magnesium Total Bilirubin AST ALT Alkaline Phosphata se Total Protein Albumin Globulin Vitals: Last Vital Signs Temp 97.9 F 10/29/19 04:00 Pulse 77 10/29/19 05:00 Resp 18 10/29/19 05:00 BP 120/49 10/29/19 05:00 Pulse Ox 100 10/29/19 05:00 Discharge Plan Discharge Patient Disposition: Hospice - Home Condition: Stable Prescriptions: New vancomycin 1,000 mg Recon Soln 125 mg PO QID Qty: 40 RF: 0 Santyl 250 unit/gram ointment 1 applic TOPICAL BID Qty: 30 RF: 0 levofloxacin [Levaquin] 500 mg tablet 500 mg PO Q48H 7 Days Qty: 4 RF: 0 ondansetron HCl [Zofran] 4 mg tablet 4 mg PO Q8H PRN (Reason: nausea and vomiting) 4 Days Qty: 20 RF: 0 Continued Aspir-81 81 mg tablet,delayed release (DR/EC) 81 mg PO DAILY Qty: 90 RF: 2 gabapentin 300 mg capsule 300 mg PO BID 90 Days Qty: 180 RF: 0 promethazine 25 mg tablet 25 mg PO QID PRN (Reason: Nausea) Qty: 30 RF: 0 melatonin 3 mg Tablet 3 mg PO BEDTIME PRN (Reason: Sleep) RF: 0 magnesium sulfate in 0.9 %NaCl 2 gram/100 mL piggyback 2 gm IVP Q7D RF: 0 famotidine 20 mg Tablet 20 mg PO DAILY PRN (Reason: Indigestion) RF: 0 Probiotic 3 billion cell Capsule 3,000 mmu cells PO DAILY Qty: 0 RF: 0 potassium chloride in 0.9%NaCl 10 mEq/100 mL Piggyback 40 meq IV DIRECTED RF: 0 [place] 5-325 mg tablet 1 tab PO Q6H PRN (Reason: pain) Qty: 20 RF: 0 Discontinued tramadol [Ultram] 50 mg tablet 50 mg PO Q6H PRN (Reason: Pain, Moderate) Qty: 120 RF: 1 MediHoney (honey) See Rx Instructions .ROUTE .COMPLEX RF: 0 Discharge Orders: Discharge Order (Routine); Ordered 10/29/19 Ordered By: Jeb Montenegro Referrals: [facility] [Outside] Veda Gilman MD [Primary Care Provider] - Discharge Diet: Advance as tolerated Discharge Activity: Increase activity as tolerated Activity Restrictions/Additional Instructions: Please call certified respiratory therapist or physician for any questions. Please continue with Santyl cream applying to back wound twice daily and follow- up with wound care clinic. Discharge Attestations Time Spent in Discharge Care*: greater than 30 min Quality Metrics Clinical Quality Measures During this hospital stay, did patient experience: None Coding Level of Care Code Acute [employer] for Chg Fwd Diagnoses Failure to thrive COVID-19 U07.1 Pressure ulcer of sacral region, unspecified stage L89.159 Bacteremia R78.81 Severe protein-calorie malnutrition E43 Crohn's disease K50.919 Digestive disease complication type: unspecified complication Gastrointestinal tract location: unspecified location Chronic kidney disease, stage III (moderate) N18.3 Dehydration with hyponatremia E86.0; E87.1 Hypomagnesemia E83.42 Hypokalemia E87.6 C. difficile diarrhea A04.72
[2019-10-29 12:10] LABS: Glucose Point of Care 103 mg/dL (70-110)
--- NOTE | 2019-10-29 16:00 | PC.NURSE ---
Daughter dropped off clothing. Pt dressed in outfit of choice and hair brushed and pulled back. Pt taken to daughter's vehicle via WC by Inspection Clerk. Mask on pt. Pt denies pain or needs. Discharge plans explained. Pt indicated understanding. Pt requested we do a verbal consent so she did not have to sign discharge documents. Kendall present and witnessed requested. Daughter denies questions at this time. States she plans to take pt directly to home to view pt's . Snehal, Hospice nurse, notified of pt's departure.
== END 2019-10-29 16:00 | disposition hospice, home (50) | DRG 177 ==
LOC: ER 10-25 01:36 → ICU 10-25 01:50
PROVIDERS: Emergency Medicine; Admitting Provider Internal Medicine; PCP Family Medicine; Visit Provider Internal Medicine
DX: U07.1 COVID-19 (principal); E43 Unspecified severe protein-calorie malnutrition; Z68.1 Body mass index [BMI] 19.9 or less, adult; K50.90 Crohn's disease, unspecified, without complications; E87.1 Hypo-osmolality and hyponatremia; K56.609 Unspecified intestinal obstruction, unspecified as to partial versus complete obstruction; Z63.4 Disappearance and death of family member; F32.9 Major depressive disorder, single episode, unspecified; L89.159 Pressure ulcer of sacral region, unspecified stage; Z93.3 Colostomy status; Z90.49 Acquired absence of other specified parts of digestive tract; I48.91 Unspecified atrial fibrillation; D63.1 Anemia in chronic kidney disease; N18.3 Chronic kidney disease, stage 3 (moderate); I25.2 Old myocardial infarction; R62.7 Adult failure to thrive; E86.0 Dehydration; E83.42 Hypomagnesemia; E87.6 Hypokalemia; Z79.891 Long term (current) use of opiate analgesic; Z79.82 Long term (current) use of aspirin; B96.4 Proteus (mirabilis) (morganii) as the cause of diseases classified elsewhere; B96.89 Other specified bacterial agents as the cause of diseases classified elsewhere; R91.8 Other nonspecific abnormal finding of lung field
CPT/HCPCS: 12345; 36416; 36591; 71045; 73030; 74177; 80053; 81003; 82607; 82728; 82746; 82962; 83540; 83550; 83735; 85025; 85378; 85384; 85610; 86140; 87040; 87077; 87186; 87426; 87493; 87506; 96372; 96375; 99282; J0743; J1644; J1815; J1956; J2060; J2270; J2405; J3370; J3475; J3480; J7030; Q9967

== ENCOUNTER → 2019-11-23 10:49 | Outpatient (BNVA) | payer MEDICARE, SELFPAY | PROVIDERS: PCP Family Medicine; Visit Provider Orthopaedic Surgery | DX: S42.91XA Fracture of right shoulder girdle, part unspecified, initial encounter for closed fracture (principal) | CPT/HCPCS: 73030 ==

== ENCOUNTER 2019-11-23 13:00 | Inpatient (IN) | payer MEDICARE, SELFPAY ==
[2019-11-23] VITALS (7 sets, daily range): BP systolic 100–119; BP diastolic 34–80; PULSE 52–97; RESP 16–18; TEMP 36.4–37.1; O2SAT 96–100; BMI 12.8
--- NOTE | 2019-11-23 13:20 | XRR_ITS ---
PROCEDURE INFORMATION: Exam: XR Chest, 1 View Exam date and time: 11/23/2019 1:22 PM Age: 69 years old Clinical indication: Pre-operative exam; Cardiovascular screening and respiratory screening exam; Additional info: Pre op TECHNIQUE: Imaging protocol: XR of the chest Views: 1 view. COMPARISON: CR XR chest 1V portable [id number] 10/24/2019 11:59 PM FINDINGS: Tubes, catheters and devices: Right jugular chest port in place. Lungs: No acute confluent infiltrate. Pleural space: Mild biapical pleural scarring, chronic. Heart/Mediastinum: Unremarkable. No cardiomegaly. Vasculature: Mild aortic arch atherosclerotic calcification. Bones/joints: Bones appear demineralized. Chronic right humeral head and neck fracture. XR/XR chest 1V portable [id number] IMPRESSION: No acute cardiopulmonary process evident.
--- NOTE | 2019-11-23 13:21 | ECG_ITS ---
[facility] Test Date: 2019-11-23 Pat Name: Janene Gallegos Department: Room: Gender: Female Market Analyst: : 1950 Requested By: Buzz Moncada Order Number: [id number] Santino MD: Sara Arango M.D. Measurements Intervals Radiant Rate: 96 P: 74 KS: 148 QRS: 74 QRSD: 85 T: 74 QT: 414 QTc: 526 Interpretive Statements SINUS RHYTHM LEFT ATRIAL ENLARGEMENT [-0.15mV P WAVE IN V1/V2] INDETERMINATE AXIS Compared to ECG 07/22/2019 12:31:36 Indeterminate axis now present Sinus tachycardia no longer present T-wave abnormality no longer present Electronically Signed On 11-23-2019 13:54:56 CDT by Sara Arango M.D. [id number]
--- NOTE | 2019-11-23 13:22 | W.ED.RECABL ---
HPI - Recheck/Abnormal Lab/Rx General: Chief Complaint: Recheck/Abnormal Lab/Rx Stated Complaint: Right Shoulder Pain Time Seen by Provider: 11/23/19 13:16 Source: patient Mode of arrival: ambulatory Limitations: no limitations History of Present Illness: HPI narrative: 69-year-old female who had a fall a month ago and had a right humerus fracture. Humerus fracture has not been healing but surgery was placed off as she tested positive for cocaine 3 weeks ago. Patient is cleared from COVID and surgeon would like to do surgery. She does have a lot of chronic issues including hypo-mag and he wants her medically cleared. Patient denies any chest pain or abdominal pain. She does have pain at the humeral site. Review of Systems Const: Denies: fever(s), chills, body aches or change in appetite Eyes: Denies: blurry vision or eye discomfort ENMT: Denies: throat pain or dental pain Card: Denies: chest pain Resp: Denies: dyspnea GI: Denies: abdominal pain, nausea, vomiting or diarrhea : Denies: dysuria Musc: Reports: extremity pain Skin/Breast: Denies: rash Neuro: Denies: headache(s) Psych: Denies: depression Frankie/Lymph: Denies: easy bruising All/Imm: Denies: urticaria PFSH ED PFSH: Medical History Atrial fibrillation Chronic anemia Chronic kidney disease, stage III (moderate) Crohn's disease Hyperaldosteronism Hypersomnia Hypokalemia Hypomagnesemia Local infection due to Port-A-Cath Myocardial infarction (lateral wall) Pressure ulcer of sacral region, unspecified stage Severe protein-calorie malnutrition Systolic congestive heart failure Surgical History H/O ileostomy H/O total colectomy History of delivery x4 Hx of appendectomy Port-A-Cath in place (10/12/19) right IJ Family History Other CAD (coronary artery disease) Cancer Congestive heart failure Diabetes Hyperlipidemia Social History Smoking and tobacco status: never smoked Second hand smoke exposure: No Alcohol intake: never Lives independently: Yes Household members: spouse Marital status: Current occupational status: retired History of recent travel: No Current gender identity: Female Physical Exam Const: COMMON NORMALS: no acute distress, patient oriented x3 and healthy appearing HENMT: COMMON NORMALS: normocephalic and atraumatic HEAD & SCALP: normocephalic and atraumatic Eye: COMMON NORMALS: Equal, round and reactive pupils present and EOMs intact bilaterally PUPIL: Yes Equal, round and reactive pupils present Neck/C-Spine: COMMON NORMALS: full ROM and supple Chest: COMMONS NORMALS: normal inspection of the chest and normal palpation of entire chest wall Resp: COMMON NORMALS: normal respiratory effort, No retractions, No use of accessory muscles and clear to auscultation bilaterally AUSCULTATION: clear to auscultation bilaterally Cardio: COMMON NORMALS: regular rate, regular rhythm and No murmurs present (Cardio) RATE: regular rate RHYTHM: regular rhythm GI: COMMON NORMALS: Normal to inspection, nondistended, normoactive bowel sounds present, Soft to palpation, non-tender and no masses PALPATION: Yes Soft to palpation Extremity: COMMON NORMALS: normal to inspection NARRATIVE EXTREMITY EXAM: sling to r arm with tenderness to prox humerus Neuro: COMMON NORMALS: patient oriented x3, moves all extremities and no focal motor deficits Psych: COMMON NORMALS: mental status grossly normal, Normal thought process present and cooperative THOUGHT PROCESS: Normal thought process present Skin: COMMON NORMALS: no rashes or lesions noted and no wounds GENERAL SKIN EXAM: no rashes or lesions noted Course Vital Signs: Vital signs: Vital Signs Temperature 97.6 F 11/23/19 13:16 Pulse Rate 97 11/23/19 13:50 Respiratory Rate 16 11/23/19 13:50 Blood Pressure 110/80 11/23/19 13:50 Pulse Oximetry 96 11/23/19 13:50 MDM - Recheck/Abnormal Lab/Rx MDM Narrative: Medical decision making narrative: Patient presents here with right humerus fracture. Patient does have some slight dehydration with elevated creatinine. I spoke to hospitalist will admit patient given IV fluids here. Dr. Arevalo of orthopedics is consulted as well for her humerus fracture. Patient has been stable on the ER. Lab Data: Labs: Lab Results 11/23/19 11/23/19 11/23/19 Range/Units 13:45 13:45 13:45 WBC 7.6 (4.0-10.0) 10^3/ uL RBC 3.25 L (4.1-5.3) 10^6/u L Hgb 9.5 L (11.5-15.3) g/dL Hct 31.3 L (37.0-47.0) % MCV 96.3 (81-99) fL MCH 29.2 (28.0-34.0) pg MCHC 30.4 (30.0-36.0) g/dL RDW 16.7 H (12.1-15.1) % Plt Count 363 (130-400) 10^3/c mm MPV 9.6 (7.4-10.4) fL Neut % (Auto) 63.3 % Lymph % (Auto) 18.5 % [place] % (Auto) 11.3 % Eos % (Auto) 5.9 % Baso % (Auto) 0.7 % Neut # (Auto) 4.84 (1.8-7.7) 10^3/u L Lymph # (Auto) 1.4 (0.8-4.8) 10^3/u L [place] # (Auto) 0.9 (0.2-0.9) 10^3/u L Eos # (Auto) 0.5 (0.0-0.8) 10^3/u L Baso # (Auto) 0.1 (0.0-0.1) 10^3/u L Nucleated RBC % (a uto) 0 % Nucleated RBCs # 0.0 /100WBC PT 12.80 (12.1-14.9) SECO NDS INR 0.93 (0.8-1.2) Sodium 136 (136-145) mmol/L Potassium 3.0 L (3.5-5.1) mmol/L Chloride 76 L (98-107) mmol/L Carbon Dioxide 49 H* (22-29) mmol/L Anion Gap 14.0 (5-19) BUN 19 (8-23) mg/dL Creatinine 2.2 H (0.5-0.9) mg/dL GFR Calculation 22.1 L (90-130) mL/min Glucose 113 (65-115) mg/dL Calculated Osmolal ity 285 (285-295) mOsm/k g Calcium 8.4 L (8.5-10.5) mg/dL Magnesium 1.4 L (1.7-2.3) mg/dL Total Bilirubin 0.3 (0.15-1.2) mg/dL AST 23 (0-32) U/L ALT 18 (0-33) U/L Alkaline Phosphata se 143 H (35-105) IU/L Total Protein 7.0 (6.6-8.7) g/dL Albumin 3.4 L (3.5-5.2) g/dL Globulin 3.6 (1.3-4.6) g/dL Imaging Data^: CXR: Attestation: I personally reviewed and interpreted this imaging study as follows: Radiologist's impression: [address] [address] XRay Report Signed Patient: Janene Gallegos Unit #: [id number] : 1950 Age/Sex: 69 / F ADM Date: 11/23/19 Loc: ER Room/Bed: Attending Dr: Ordering Provider/Ordering MD: Buzz Moncada MD Date of Service: 11/23/19 Procedure(s): XR chest 1V portable [id number] Accession Number(s): [id number] Report Number: [id number] PROCEDURE INFORMATION: Exam: XR Chest, 1 View Exam date and time: 11/23/2019 1:22 PM Age: 69 years old Clinical indication: Pre-operative exam; Cardiovascular screening and respiratory screening exam; Additional info: Pre op TECHNIQUE: Imaging protocol: XR of the chest Views: 1 view. COMPARISON: CR XR chest 1V portable [id number] 10/24/2019 11:59 PM FINDINGS: Tubes, catheters and devices: Right jugular chest port in place. Lungs: No acute confluent infiltrate. Pleural space: Mild biapical pleural scarring, chronic. Heart/Mediastinum: Unremarkable. No cardiomegaly. Vasculature: Mild aortic arch atherosclerotic calcification. Bones/joints: Bones appear demineralized. Chronic right humeral head and neck fracture. XR/XR chest 1V portable [id number] IMPRESSION: No acute cardiopulmonary process evident. EKG Data^: EKG 1: Attestation: I personally reviewed and interpreted this EKG as follows: EKG interpretation date: 11/23/19 EKG interpretation time: 13:53 Interpretation: nsr hr [address] or t wave abnormalities qrs 85 qtc 468 Discharge Plan Discharge Patient Disposition: Admitted As Inpatient Clinical Impression: Closed right humeral fracture, Acute kidney injury Condition: Stable Referrals: Veda Gilman MD [Primary Care Provider] - Coding Level of Care Code ED [employer] for Chg Fwd Exam Comprehensive
[2019-11-23 13:51] LABS: Basophils # 0.1 10^3/uL (0.0-0.1); Basophils % 0.7 %; Eosinophils # 0.5 10^3/uL (0.0-0.8); Eosinophils % 5.9 %; Hematocrit 31.3 % (37.0-47.0); Hemoglobin 9.5 g/dL (11.5-15.3); Lymphocytes # 1.4 10^3/uL (0.8-4.8); Lymphocytes % 18.5 %; Mean Corpuscular HGB Conc 30.4 g/dL (30.0-36.0); Mean Corpuscular Hemoglobin 29.2 pg (28.0-34.0); Mean Corpuscular Volume 96.3 fL (81-99); Mean Platelet Volume 9.6 fL (7.4-10.4); Monocytes # 0.9 10^3/uL (0.2-0.9); Monocytes % 11.3 %; Neutrophils # 4.84 10^3/uL (1.8-7.7); Neutrophils % 63.3 %; Nucleated Red Blood Cells % 0 %; Platelet Count 363 10^3/cmm (130-400); Red Blood Count 3.25 10^6/uL (4.1-5.3); Red Cell Distribution Width 16.7 % (12.1-15.1); White Blood Count 7.6 10^3/uL (4.0-10.0)
[2019-11-23 14:05] LABS: INR 0.93 (0.8-1.2)
[2019-11-23 14:15] LABS: Alanine Aminotransferase 18 U/L (0-33); Albumin Level 3.4 g/dL (3.5-5.2); Alkaline Phosphatase 143 IU/L (35-105); Aspartate Amino Transferase 23 U/L (0-32); Blood Urea Nitrogen 19 mg/dL (8-23); Calcium 8.4 mg/dL (8.5-10.5); Chloride 76 mmol/L (98-107); Globulin 3.6 g/dL (1.3-4.6); Glomerular Filtration Rate 22.1 mL/min (90-130); Glucose 113 mg/dL (65-115); Magnesium 1.4 mg/dL (1.7-2.3); Osmolality Calculated 285 mOsm/kg (285-295); Sodium 136 mmol/L (136-145); Total Bilirubin 0.3 mg/dL (0.15-1.2)
[2019-11-23 14:35] LABS: Carbon Dioxide 49 mmol/L (22-29)
[2019-11-23] MEDS: sodium chloride 0.9% 1,000 ML 999 ML IV (15:02)
--- NOTE | 2019-11-23 15:42 | USCV_ITS ---
Janene Gallegos Age: 69 Gender: F : 1950 Exam Date: 11/23/2019 16:14 Ordering Phys: Oscar Meehan MD Technologist: Gilberto Lopez Exam Location: [facility] – [place] Indication: PRE OP BP: 124 / 72 HR: 90 Rhythm: Sinus Technical Quality: Adequate MEASUREMENTS (Male / Female) Normal Values 2D ECHO LV Diastolic Diameter PLAX 3.2 cm 4.2 - 5.9 / 3.9 - 5.3 cm LV Systolic Diameter PLAX 1.9 cm IVS Diastolic Thickness 0.9 cm 0.6 - 1.0 / 0.6 - 0.9 cm IVS Systolic Thickness 1.3 cm LVPW Diastolic Thickness 0.7 cm 0.6 - 1.0 / 0.6 - 0.9 cm LVPW Systolic Thickness 1.5 cm LVOT Diameter 1.6 cm LV Ejection Fraction 2D Teich 72.7 % LV Ejection Fraction MOD 2C 68.1 % LV Ejection Fraction 2C AL 67.9 % LA Diameter 2.4 cm LA Width 2.9 cm LA Height 3.3 cm RA Width 2.3 cm RA Height 2.8 cm Aorta at Sinotubular Diameter 1.1 cm M-MODE LV Diastolic Diameter MM 3.3 cm 4.2 - 5.9 / 3.9 - 5.3 cm LV Systolic Diameter MM 1.9 cm LV Ejection Fraction MM Teich 74.7 % IVS Diastolic Thickness MM 0.9 cm 0.6 - 1.0 / 0.6 - 0.9 cm IVS Systolic Thickness MM 1.2 cm LVPW Diastolic Thickness MM 0.8 cm 0.6 - 1.0 / 0.6 - 0.9 cm LVPW Systolic Thickness MM 1.2 cm RV Diastolic Diameter MM 1.6 cm Aortic Annulus Diameter 2.6 cm LA Ao Ratio MM 0.9 MV E Point Septal Separation 0.8 cm FINDINGS Left Ventricle Normal left ventricular cavity size. Normal left ventricular systolic function. No regional wall motion abnormalities. Left ventricular ejection fraction is estimated at 60 %. Right Ventricle Right Atrium Left Atrium Mitral Valve Aortic Valve Tricuspid Valve Pulmonic Valve Pericardium Aorta CONCLUSIONS Please note that this is a limited study without Doppler data therefore cannot assess valvular function however it appeared to me all the valves are opening and closing fine. 1-Normal left ventricular cavity size. Normal left ventricular systolic function. No regional wall motion abnormalities. Left ventricular ejection fraction is estimated at 60 %. 2-There is no pericardial effusion. 3-Right atrial pressure is around 5 mm of mercury. 4- Cannot compare this exam with prior study due to lack of Doppler data. Please order repeat echocardiogram with Doppler . Deepak Mendoza MD (Electronically Signed) Final Date: 23 November 2019 17:35 S
--- NOTE | 2019-11-23 15:57 | PM.HP ---
Providers/Chief Complaint Admitting Physician: Oscar Meehan Primary Care Provider: Veda Gilman MD Chief Complaint: Right Shoulder Pain History of Present Illness Janene Gallegos is a 69 year old female with past medical history of ulcerative colitis, colostomy, short gut syndrome, malnutrition, generalized chronic deconditioning and debilitated state, chronic electrolyte abnormalities, chronic anemia who was sent by her orthopedic surgeon to ER for admission. About a month ago she was diagnosed with right shoulder fracture after a fall. she saw Dr. Vides for outpatient evaluation. due to persistent pain she will undergo ORIF when she is medically stabilized. At that time she was also found to be covid 19 positive.she was symptomatic. Chest x-ray didn't reveal any infiltrates. She denies any shortness of breath or cough. No fevers or chills. She was also in the hospital several weeks ago for Proteus vulgaris bacteremia and C. difficile he diarrhea. She was discharged home after initial hospitalization with outpatient antibiotics. She has colostomy and chronic watery diarrhea. This is the reason for frequent episodes of dehydration and electrolyte abnormalities. She denies any recent changes in the bowel habits. No abdominal pain. No nausea or vomiting. No blood in the stool. She has history of coronary artery disease diagnosed about 6-7 years ago. She denies history of congestive heart failure. Denies chest pain or shortness of breath. Denies peripheral swelling. Review of Systems General: Reports: 10 or more systems reviewed and unremarkable except in HPI and below Medications/Allergies Home Medications Medication Instructions Recorded Confirmed Last Taken Type melatonin 3 mg PO BEDTIME PRN 03/01/19 11/23/19 10/07/19 History Probiotic 3,000 mmu cells PO DAILY #0 05/02/19 11/23/19 11/22/19 History aspirin 81 mg tablet,delayed 81 mg PO DAILY #90 tab 05/10/19 11/23/19 10/07/19 Rx release promethazine 25 mg tablet 25 mg PO QID PRN #30 tab 10/14/19 11/23/19 11/23/19 Rx gabapentin 300 mg PO BID 11/23/19 11/23/19 11/23/19 History hydrocodone-acetaminophen 1 tab PO Q8H PRN 11/23/19 11/23/19 Unknown History hydroxyzine pamoate 25 mg PO TID PRN 11/23/19 11/23/19 Unknown History potassium chloride 40 meq PO BID 11/23/19 11/23/19 11/23/19 History tramadol 50 - 100 mg PO Q6H PRN 11/23/19 11/23/19 11/23/19 History Allergies Allergy/AdvReac Type Severity Reaction Status Date / Time amoxicillin Allergy ALGY-Hives Verified 11/23/19 13:19 cefazolin [From Ancef] Allergy ALGY-Rash Verified 11/23/19 13:19 cephalexin [From Keflex] Allergy ALGY-Rash Verified 11/23/19 13:19 codeine Allergy ALGY-Hives Verified 11/23/19 13:19 doxycycline Allergy ALGY-Hives Verified 11/23/19 13:19 erythromycin base Allergy ALGY-Hives Verified 11/23/19 13:19 [From E.E.S.] latex Allergy Unknown Verified 11/23/19 13:19 metoclopramide Allergy Unknown Verified 11/23/19 13:19 neomycin Allergy ALGY-Hives Verified 11/23/19 13:19 Penicillins Allergy ALGY-Hives Verified 11/23/19 13:19 polyethylene glycol Allergy ADR-Swelling Verified 11/23/19 13:19 of the Eye pregabalin [From Lyrica] Allergy ALGY-Swell Verified 11/23/19 13:19 Lip/Tongue/Throat prochlorperazine Allergy ALGY-Hives Verified 11/23/19 13:19 [From Compazine] propoxyphene [From Darvon] Allergy ALGY-Hives Verified 11/23/19 13:19 sapropterin Allergy ADR-Swelling Verified 11/23/19 13:19 [From Tetrahydrobiopterin of the Eye Di-HCL] scopolamine Allergy ALGY-Hives Verified 11/23/19 13:19 Sulfa (Sulfonamide Allergy ALGY-Hives Verified 11/23/19 13:19 Antibiotics) tegaserod [From Zelnorm] Allergy ALGY-Hives Verified 11/23/19 13:19 tetracycline Allergy ALGY-Hives Verified 11/23/19 13:19 tetrahydrozoline Allergy ADR-Swelling Verified 11/23/19 13:19 [From Visine] of the Eye PFSH Acute PFSH: Medical History Atrial fibrillation Chronic anemia Chronic kidney disease, stage III (moderate) Crohn's disease Hyperaldosteronism Hypersomnia Hypokalemia Hypomagnesemia Local infection due to Port-A-Cath Myocardial infarction (lateral wall) Pressure ulcer of sacral region, unspecified stage Severe protein-calorie malnutrition Systolic congestive heart failure Surgical History H/O ileostomy H/O total colectomy History of delivery x4 Hx of appendectomy Port-A-Cath in place (10/12/19) right IJ Family History Other CAD (coronary artery disease) Cancer Congestive heart failure Diabetes Hyperlipidemia Social History Smoking and tobacco status: never smoked Second hand smoke exposure: No Alcohol intake: never Lives independently: Yes Household members: spouse Marital status: Current occupational status: retired History of recent travel: No Current gender identity: Female Vitals/I&O/Wt Last Vital Signs Temp 98.7 F 11/23/19 15:38 Pulse 89 11/23/19 15:38 Resp 18 11/23/19 15:38 BP 106/58 11/23/19 15:38 Pulse Ox 96 11/23/19 15:38 Weight last 48 hrs Weight 31.751 kg Physical Exam Narrative: EXAM NARRATIVE: the patient is awake alert and oriented. No acute distress. Mood and affect are appropriate. Responses are adequate. Skin is warm and dry. Moist mucous membranes. Eyes PERRL, extraocular muscles intact. Normal speech. Neck supple. No JVD Lungs clear bilaterally. No respiratory distress Heart S1, S2, regular Abdomen soft, nontender, bowel sounds are present. Colostomy bag. Brown liquid stool in the bag. No blood. Extremities no edema or cyanosis. No cough tenderness bilaterally. Right upper extremity is with limited mobility due to the fracture and associated pain. Data : 11/23/19 13:45 11/23/19 13:45 Other Labs: Laboratory Results WBC 7.6 10^3/uL (4.0-10.0) 11/23/19 13:45 RBC 3.25 10^6/uL (4.1-5.3) L 11/23/19 13:45 Hgb 9.5 g/dL (11.5-15.3) L 11/23/19 13:45 Hct 31.3 % (37.0-47.0) L 11/23/19 13:45 MCV 96.3 fL (81-99) 11/23/19 13:45 MCH 29.2 pg (28.0-34.0) 11/23/19 13:45 MCHC 30.4 g/dL (30.0-36.0) 11/23/19 13:45 RDW 16.7 % (12.1-15.1) H 11/23/19 13:45 Plt Count 363 10^3/cmm (130-400) 11/23/19 13:45 MPV 9.6 fL (7.4-10.4) 11/23/19 13:45 Neut % (Auto) 63.3 % 11/23/19 13:45 Lymph % (Auto) 18.5 % 11/23/19 13:45 Motley % (Auto) 11.3 % 11/23/19 13:45 Eos % (Auto) 5.9 % 11/23/19 13:45 Baso % (Auto) 0.7 % 11/23/19 13:45 Neut # (Auto) 4.84 10^3/uL (1.8-7.7) 11/23/19 13:45 Lymph # (Auto) 1.4 10^3/uL (0.8-4.8) 11/23/19 13:45 Motley # (Auto) 0.9 10^3/uL (0.2-0.9) 11/23/19 13:45 Eos # (Auto) 0.5 10^3/uL (0.0-0.8) 11/23/19 13:45 Baso # (Auto) 0.1 10^3/uL (0.0-0.1) 11/23/19 13:45 Nucleated RBC % (auto) 0 % 11/23/19 13:45 Nucleated RBCs # 0.0 /100WBC 11/23/19 13:45 PT 12.80 SECONDS (12.1-14.9) 11/23/19 13:45 INR 0.93 (0.8-1.2) 11/23/19 13:45 Sodium 136 mmol/L (136-145) 11/23/19 13:45 Potassium 3.0 mmol/L (3.5-5.1) L 11/23/19 13:45 Chloride 76 mmol/L (98-107) L 11/23/19 13:45 Carbon Dioxide 49 mmol/L (22-29) H* 11/23/19 13:45 Anion Gap 14.0 (5-19) 11/23/19 13:45 BUN 19 mg/dL (8-23) 11/23/19 13:45 Creatinine 2.2 mg/dL (0.5-0.9) H 11/23/19 13:45 GFR Calculation 22.1 mL/min (90-130) L 11/23/19 13:45 Glucose 113 mg/dL (65-115) 11/23/19 13:45 Calculated Osmolality 285 mOsm/kg (285-295) 11/23/19 13:45 Calcium 8.4 mg/dL (8.5-10.5) L 11/23/19 13:45 Magnesium 1.4 mg/dL (1.7-2.3) L 11/23/19 13:45 Total Bilirubin 0.3 mg/dL (0.15-1.2) 11/23/19 13:45 AST 23 U/L (0-32) 11/23/19 13:45 ALT 18 U/L (0-33) 11/23/19 13:45 Alkaline Phosphatase 143 IU/L (35-105) H 11/23/19 13:45 Total Protein 7.0 g/dL (6.6-8.7) 11/23/19 13:45 Albumin 3.4 g/dL (3.5-5.2) L 11/23/19 13:45 Globulin 3.6 g/dL (1.3-4.6) 11/23/19 13:45 Impressions Chest X-Ray 11/23/19 13:20 IMPRESSION: No acute cardiopulmonary process evident. A&P Additional A&P Information Janene Gallegos is a 69 year old female with past medical history of ulcerative colitis, colostomy, short gut syndrome, CKD3,malnutrition, generalized chronic deconditioning and debilitated state, chronic electrolyte abnormalities, chronic anemia who was sent by her orthopedic surgeon to ER for admission. right humeral neck fracture. The patient is being evaluated for ORIF. Medical clearance is requested. [facility] go [facility]. We'll continue pain medications as needed. History of ulcerative colitis and short gut syndrome. Dehydration and acute kidney injury secondary to #3. Will hydrate and monitor her electrolytes and renal function. Hypokalemia. We'll replace and monitor. History of chronic kidney disease. History of coronary artery disease. She denies any history of congestive heart failure or other cardiac conditions. Denies shortness of breath and chest pain. Will order echo to evaluate her heart. History of recent asymptomatic coronavirus infection. This was about 4 weeks ago. I discussed with the ER doctors. According to them they checked [facility] website and the patient doesn't need additional testing according to current recommendations. Recent Proteus bacteremia. I will order blood cultures and urine culture to confirm that she is cleared of infection. She also has history of C. difficile infection. Receive treatment for this. Chronic anemia. I will order anemia workup. It is expected that she will have some blood loss related to the surgery. We'll monitor her CBC. DVT prophylaxis. Heparin. The patient was to be full code. The plan of care was discussed with the patient. She verbalized understanding and agreement. Attestations Medical Necessity Statement*: based on my assessment of her current condition and findings she will require more than 2 midnights in the hospital. Coding Level of Care Code Acute Supervisor Record Press for Rudolph Miller
[2019-11-23 17:04] LABS: Ferritin 397 ng/mL (15-150); Iron 35 ug/dL (37-145); Percent Saturation 16.5 % (20-50); Thyroid Stimulating Hormone 0.83 uIU/mL (0.27-4.20); Total Iron Binding Capacity 211 mcg/dl; Unsaturated Iron Binding 176 ug/dL (112-347); Vitamin B12 495 pg/mL (232-1245)
[2019-11-23 17:26] LABS: Folate Level 13.9 ng/mL (4.8-37.3)
[2019-11-23] MEDS: heparin 5,000 unit/mL INJ 1 mL 5000 UNIT SUBCUT (17:47)
[2019-11-23] MEDS: dextrose 5%-sod chloride 0.45% 1,000 ML 75 ML IV (18:24)
[2019-11-23] MEDS: gabapentin 300 mg Capsule PO (18:28)
[2019-11-23] MEDS: HYDROcodone-acetaminophen 10-325 mg Tablet 1 TAB PO (18:28)
[2019-11-23] MEDS: hyDROXYzine 25 mg Capsule PO (18:30)
[2019-11-23] MEDS: acetaminophen 325 mg Tablet 650 MG PO (22:14)
[2019-11-24] VITALS (33 sets, daily range): BP systolic 72–117; BP diastolic 39–68; PULSE 82–112; RESP 10–25; TEMP 36.1–37.1; O2SAT 90–100
--- NOTE | 2019-11-24 | SCC_ITS ---
Procedure Done: Open reduction and internal fixation right proximal humerus 75.3 seconds of fluoroscopic guidance, for a cumulative dose of 2.20 mGy, was provided to Dr. Arevalo by the radiology department. C-arm images of the RIGHT shoulder were saved for the patient's permanent record. [facility]
[2019-11-24] MEDS: heparin 5,000 unit/mL INJ 1 mL 5000 UNIT SUBCUT (05:26)
[2019-11-24 05:59] LABS: Basophils % 0.5 %; Eosinophils # 0.6 10^3/uL (0.0-0.8); Eosinophils % 6.4 %; Hematocrit 30.6 % (37.0-47.0); Hemoglobin 9.2 g/dL (11.5-15.3); Lymphocytes # 1.1 10^3/uL (0.8-4.8); Lymphocytes % 12.6 %; Mean Corpuscular HGB Conc 30.1 g/dL (30.0-36.0); Mean Corpuscular Hemoglobin 29.1 pg (28.0-34.0); Mean Corpuscular Volume 96.8 fL (81-99); Mean Platelet Volume 9.5 fL (7.4-10.4); Monocytes # 0.8 10^3/uL (0.2-0.9); Monocytes % 8.5 %; Neutrophils # 6.35 10^3/uL (1.8-7.7); Neutrophils % 71.7 %; Nucleated Red Blood Cells % 0 %; Platelet Count 329 10^3/cmm (130-400); Red Blood Count 3.16 10^6/uL (4.1-5.3); Red Cell Distribution Width 16.9 % (12.1-15.1); White Blood Count 8.9 10^3/uL (4.0-10.0)
[2019-11-24 06:27] LABS: Anion Gap 11.6 (5-19); Blood Urea Nitrogen 17 mg/dL (8-23); Calcium 8.7 mg/dL (8.5-10.5); Chloride 85 mmol/L (98-107); Glomerular Filtration Rate 29.7 mL/min (90-130); Glucose 94 mg/dL (65-115); Magnesium 1.7 mg/dL (1.7-2.3); Osmolality Calculated 283 mOsm/kg (285-295); Phosphorus 3.7 mg/dL (2.5-4.5); Sodium 136 mmol/L (136-145)
[2019-11-24 06:47] LABS: Carbon Dioxide 42 mmol/L (22-29); Potassium 2.6 mmol/L (3.5-5.1)
[2019-11-24] MEDS: lidocaine 1% INJ 20 mL 5 ML IV (07:44)
[2019-11-24] MEDS: potassium chloride premix 40 MEQ/100 ML PREMIX 25 MEQ IV (07:44)
--- NOTE | 2019-11-24 08:23 | USCV_ITS ---
Janene Gallegos Age: 69 Gender: F : 1950 Exam Date: 11/24/2019 08:41 Ordering Phys: Oscar Meehan MD Technologist: Natalya Bass [place]am [place] [facility] [place] Indication: PRE OP ECHO BP: 107 / 68 HR: 91 Rhythm: Sinus Technical Quality: Adequate MEASUREMENTS (Male / Female) Normal Values 2D ECHO LV Diastolic Diameter PLAX 3.2 cm 4.2 - 5.9 / 3.9 - 5.3 cm LV Systolic Diameter PLAX 2.0 cm LV Chamber Size 2.7 cm IVS Diastolic Thickness 0.8 cm 0.6 - 1.0 / 0.6 - 0.9 cm IVS Systolic Thickness 0.9 cm LVPW Diastolic Thickness 0.5 cm 0.6 - 1.0 / 0.6 - 0.9 cm LVPW Systolic Thickness 1.1 cm RV Chamber Size 1.8 cm LVOT Diameter 2.0 cm LV Ejection Fraction 2D Teich 68.0 % LV Ejection Fraction MOD 2C 63.3 % LV Ejection Fraction 2C AL 64.5 % LA Diameter 2.8 cm LA Width 3.0 cm LA Height 1.7 cm RA Width 2.0 cm RA Height 3.1 cm M-MODE LV Diastolic Diameter MM 3.2 cm 4.2 - 5.9 / 3.9 - 5.3 cm LV Systolic Diameter MM 2.3 cm LV Ejection Fraction MM Teich 55.9 % IVS Diastolic Thickness MM 0.7 cm 0.6 - 1.0 / 0.6 - 0.9 cm IVS Systolic Thickness MM 1.5 cm LVPW Diastolic Thickness MM 1.1 cm 0.6 - 1.0 / 0.6 - 0.9 cm LVPW Systolic Thickness MM 1.4 cm RV Diastolic Diameter MM 0.9 cm Aortic Annulus Diameter 2.8 cm LA Ao Ratio MM 1.0 MV E Point Septal Separation 0.4 cm DOPPLER AV Peak Velocity 105.0 cm/s LVOT Peak Velocity 68.0 cm/s AV Area Cont Eq vti 2.1 cm squared AV Area Cont Eq pk 2.0 cm squared MV Area PHT 6.9 cm squared Mitral E to A Ratio 1.0 MV E' Velocity 9.0 cm/s Mitral E to MV E' Ratio 5.3 Mitral E to LV E' Lateral Ratio 5.7 Mitral E to LV E' Septal Ratio 5.0 TR Peak Velocity 156.7 cm/s TR Peak Gradient 9.8 mmHg TR Mean Velocity 119.3 cm/s TR Mean Gradient 6.2 mmHg TR Velocity Time Integral 33.8 cm TV Peak E Velocity 64.0 cm/s Right Atrial Pressure 5.0 mmHg Pulmonary Artery Systolic Pressu 14.8 mmHg PV Peak Velocity 52.0 cm/s RV Acceleration Time 0.2 s RV Ejection Time 0.3 s RV AcT/ET 0.6 FINDINGS Left Ventricle Normal left ventricular cavity size. Normal left ventricular systolic function. No regional wall motion abnormalities. Left ventricular ejection fraction is estimated at 55 %. Grade I/IV diastolic dysfunction (abnormal relaxation filling pattern), normal to mildly elevated filling pressures. Right Ventricle The right ventricle is normal in size and function. Right Atrium The right atrium is normal in size. Left Atrium The left atrium is normal in size. Mitral Valve Structurally normal mitral valve without significant stenosis or prolapse. There is no mitral regurgitation. Aortic Valve Structurally normal aortic valve without significant sclerosis or stenosis. There is no aortic regurgitation. Tricuspid Valve Structurally normal tricuspid valve without significant stenosis or regurgitation. Pulmonary artery systolic pressure is normal. Pulmonic Valve Structurally normal pulmonic valve without significant stenosis. There is no pulmonic regurgitation. Pericardium Normal pericardium without effusion. Aorta Normal ascending aorta dimension. CONCLUSIONS 1-Normal left ventricular cavity size. Normal left ventricular systolic function. No regional wall motion abnormalities. Left ventricular ejection fraction is estimated at 55 %. Grade I/IV diastolic dysfunction (abnormal relaxation filling pattern), normal to mildly elevated filling pressures. 2-No significant valve abnormalities. 3-There is no pericardial effusion. 4-Pulmonary artery systolic pressure is within normal limits. 5-Right atrial pressure is around 5 mm of mercury. 6-When compared to the prior echocardiogram dated 07/03/2019 left ventricle ejection fraction has improved from moderately depressed 45% to normal 55% now . Deepak Mendoza MD (Electronically Signed) Final Date: 24 November 2019 19:02 S
--- NOTE | 2019-11-24 09:37 | P.ANESASSM_ITS ---
Pre-Anesthetic Assessment Pre-Anesthetic Assessment: Height/Weight: Height 1.57 m Weight 31.751 kg Temp Pulse Resp BP Pulse Ox 98.8 F 91 16 113/57 95 11/24/19 09:23 11/24/19 09:20 11/24/19 09:20 11/24/19 09:20 11/24/19 09:20 Preop Diagnosis: Right proximal humerus from Proposed Procedure: Operation Date: 11/24/19 09:20 Proposed Procedures p ORIF Proximal Humerus 97633 S42.201A(Right) - Aubrey Arevalo MD Familial anesthetic complications: None Was Beta Hali taken within 24 ho urs: N/A Last intake: Intake Last Liquid Date 11/23/19 Last Liquid Time 23:50 Last Solid Date 11/23/19 Last Solid Time 23:50 Social: Social History: No alcohol and No tobacco Exam: Pre-Anes Outpt Exam: alert, oriented x 3, clear to auscultation bilaterally and regular rate & rhythm Airway: Cervical ROM: WNL MP: 1 Dentition: False CV/HEM: CV/HEM: Afib, Anemia, CHF and PR Comments: Hx vtach lateral wall PR 5/3 echo EF of 45% with mod TVR and grade I diastolic dysfunction : : Chronic renal Insufficiency GI: Comments: crohn's disease Metabolic: Comments: chronic hypokalemia w/ hyperaldolesteronism, used to receive weekly potassium infusions Anesthetic Plan: ASA status: 4 Anesthesia: General and Regional (specify below) Risk of > 500 ml blood loss (7ml/kg in children): No Meds/Allergies Current Medications: Current Medications Generic Name Dose Route Start Last Admin Trade Name Freq PRN Reason Stop Dose Admin Acetaminophen 650 mg 11/23/19 15:48 11/23/19 22:14 Tylenol PO 650 mg Q6H PRN Administration Mild/Mod Pain Or Temp >/= 101 Hydrocodone Bitart /Acetaminophen 1 tab 11/23/19 17:19 11/23/19 18:28 [place] 10-325 Mg PO 1 tab Q8H PRN Administration Pain Gabapentin 300 mg 11/23/19 18:00 11/23/19 18:28 Neurontin PO 300 mg BID SERENITY Administration Heparin Sodium (Be ef Lung) 5,000 unit 11/23/19 16:00 11/24/19 05:26 Heparin SUBCUT 5,000 unit Q12H SERNEITY Administration Hydroxyzine Pamoat e 25 mg 11/23/19 17:19 11/23/19 18:30 Vistaril PO 25 mg TID PRN Administration Anxiety Dextrose/Sodium Ch loride 1,000 mls @ 75 ml s/hr 11/23/19 16:00 11/23/19 18:24 Dextrose 5%-Sod Chloride 0.45% IV 75 mls/hr .[id number] SERENITY Administration Potassium Chloride 40 meq in 100 mls @ 25 mls/hr 11/24/19 07:31 11/24/19 07:44 K-Isak IV 11/24/19 11:30 25 mls/hr ONCE ONE Administration PFSH Anesthesia PFSH: Medical History Atrial fibrillation Chronic anemia Chronic kidney disease, stage III (moderate) Crohn's disease Hyperaldosteronism Hypersomnia Hypokalemia Hypomagnesemia Local infection due to Port-A-Cath Myocardial infarction (lateral wall) Pressure ulcer of sacral region, unspecified stage Severe protein-calorie malnutrition Systolic congestive heart failure Surgical History H/O ileostomy H/O total colectomy History of delivery x4 Hx of appendectomy Port-A-Cath in place (10/12/19) right IJ Family History Other CAD (coronary artery disease) Cancer Congestive heart failure Diabetes Hyperlipidemia Social History Smoking and tobacco status: never smoked Second hand smoke exposure: No Alcohol intake: never Lives independently: Yes Household members: spouse Marital status: Current occupational status: retired History of recent travel: No Current gender identity: Female Data Anesthesia CBC & Chem 7: 11/24/19 05:50 11/24/19 05:50 Other Labs: Laboratory Results - last 48 hr 11/23/19 11/23/19 11/23/19 13:45 13:45 13:45 WBC 7.6 RBC 3.25 L Hgb 9.5 L Hct 31.3 L MCV 96.3 MCH 29.2 MCHC 30.4 RDW 16.7 H Plt Count 363 MPV 9.6 Neut % (Auto) 63.3 Lymph % (Auto) 18.5 Dick[place] % (Auto) 11.3 Eos % (Auto) 5.9 Baso % (Auto) 0.7 Neut # (Auto) 4.84 Lymph # (Auto) 1.4 Dickens # (Auto) 0.9 Eos # (Auto) 0.5 Baso # (Auto) 0.1 Nucleated RBC % (auto) 0 Nucleated RBCs # 0.0 PT 12.80 INR 0.93 Sodium 136 Potassium 3.0 L Chloride 76 L Carbon Dioxide 49 H* Anion Gap 14.0 BUN 19 Creatinine 2.2 H GFR Calculation 22.1 L Glucose 113 Calculated Osmolality 285 Calcium 8.4 L Phosphorus Magnesium 1.4 L Iron TIBC % Saturation Unsat Iron Binding Ferritin Total Bilirubin 0.3 AST 23 ALT 18 Alkaline Phosphatase 143 H Total Protein 7.0 Albumin 3.4 L Globulin 3.6 Vitamin B12 Folate TSH 11/23/19 11/23/19 11/24/19 13:45 16:10 05:50 WBC 8.9 RBC 3.16 L Hgb 9.2 L Hct 30.6 L MCV 96.8 MCH 29.1 MCHC 30.1 RDW 16.9 H Plt Count 329 MPV 9.5 Neut % (Auto) 71.7 Lymph % (Auto) 12.6 Dickens % (Auto) 8.5 Eos % (Auto) 6.4 Baso % (Auto) 0.5 Neut # (Auto) 6.35 Lymph # (Auto) 1.1 Dick[place] # (Auto) 0.8 Eos # (Auto) 0.6 Baso # (Auto) 0.0 Nucleated RBC % (auto) 0 Nucleated RBCs # 0.0 PT INR Sodium Potassium Chloride Carbon Dioxide Anion Gap BUN Creatinine GFR Calculation Glucose Calculated Osmolality Calcium Phosphorus Magnesium Iron 35 L TIBC 211 % Saturation 16.5 L Unsat Iron Binding 176 Ferritin 397 H Total Bilirubin AST ALT Alkaline Phosphatase Total Protein Albumin Globulin Vitamin B12 495 Folate 13.9 TSH 0.83 11/24/19 05:50 WBC RBC Hgb Hct MCV MCH MCHC RDW Plt Count MPV Neut % (Auto) Lymph % (Auto) Dick[place] % (Auto) Eos % (Auto) Baso % (Auto) Neut # (Auto) Lymph # (Auto) Dick[place] # (Auto) Eos # (Auto) Baso # (Auto) Nucleated RBC % (auto) Nucleated RBCs # PT INR Sodium 136 Potassium 2.6 L* Chloride 85 L Carbon Dioxide 42 H* Anion Gap 11.6 BUN 17 Creatinine 1.7 H GFR Calculation 29.7 L Glucose 94 Calculated Osmolality 283 L Calcium 8.7 Phosphorus 3.7 Magnesium 1.7 Iron TIBC % Saturation Unsat Iron Binding Ferritin Total Bilirubin AST ALT Alkaline Phosphatase Total Protein Albumin Globulin Vitamin B12 Folate TSH Micro: Microbiology 11/23/19 16:10 Blood Culture - Preliminary Blood SPECIMEN COLLECTED 11/23/19 16:15 Blood Culture - Preliminary Blood SPECIMEN COLLECTED Cardiac Studies: No Data to Display
[2019-11-24] MEDS: sodium chloride 0.9% 1,000 ML 30 ML IV (09:52)
--- NOTE | 2019-11-24 10:23 | W.PM.OPSUD ---
Surgery/Procedure H&P Update DATE OF PROCEDURE: November 24, 2019 DATE H&P PERFORMED: 11/23/19 PREOP DIAGNOSIS: Right proximal humerus from PLANNED PROCEDURE: Operation Date: 11/24/19 09:20 Proposed Procedures p ORIF Proximal Humerus [id number] S42.201A(Right) - Aubrey Arevalo MD
[2019-11-24] MEDS: clindamycin 600 MG/50 ML PREMIX 100 MG IV ×2 (10:34→18:19)
--- NOTE | 2019-11-24 10:36 | ANES.PROC ---
Anesthesia Procedures Procedure/Date: 11/24/19 Nerve Block ^: Nerve Block 1: Main Anesthesia: general anesthesia Time Out Performed: Yes Consent: requested by attending/covering physician, from patient, risks and benefits reviewed and patient agrees to proceed Nerve block location: interscalene (R) Anesthesia monitors applied: pulse oximetry, EKG, BP cuff and oxygen Nerve block position: semi sitting Anesthetic Used: ropivicaine 0.5% and with decadron (3 mg) Amount of anesthesia used (mL): 18 Ultrasound used to: visualize and ID brachial plexus and visualize and ID interscalene groove Nerve Stimulator Used?: No Interscalene/Femoral BLK: 2 stimuplex 22 g needle used for position and inplane approach, visualize local anesthetic spread and no vascular puncture identified Injection: neg aspiration of heme Patient Tolerated Procedure: well and no complications Complications: none
--- NOTE | 2019-11-24 10:55 | PC.CHAP ---
Pastoral Care Encounter/Spiritual Assessment Type of Contact [] Declined document management analyst visit [] Patient/Family/Request visit [] Outpatient visit [] Follow-up visit [] Physician referral [] Code/Alert [] Routine visit [] Staff referral [] Actively dying [] Patient sleeping [] Family support [] [] Out of room [] Palliative care [] [] Receiving care in room [] Pre-surgical visit [] Trauma [] Long length of stay [] ICU visit [x] Other: Patient intubated Relational/Emotional Strength [] Patient feels connected with others/family/visitors/staff [] Distress [] Loneliness/isolation [] Abandonment Spirituality of Patient [] Person of Winter [] Attends Sabianist of their Winter [] Believes in Prayer [] Reads Bible or Taoism materials [] There are Spiritual issues to be addressed Protective Services Social Worker Interventions [] Prayer [] Active listening [] Non-anxious presence [] Spiritual/emotional support [] Crisis/trauma care [] Spiritual counseling [] Bereavement support [] Provided bereavement packet [] Provided Bible/devotional materials [] Provided toy/stuffed animal, coloring book to patient or family member [] Provided Communion [] Anointing/[place] [] Salvation [] Completed spiritual assessment [] Other: Impact on Illness or Injury [] Angry [] Fearful [] Anxious [] Often cries [] Exhaustion [] Unable to work [] Unable to attend zoroastrian [] Unable to walk/stand [] Unable to read [] Unable to drive [] Unable to eat/drink [] Unable to sleep [] Unable to be with family [x] Patient intubated [] Other: Summary Time spent with patient 5 mins
--- NOTE | 2019-11-24 12:36 | SUR.PHASEI ---
1234 PATIENT TO PACU FROM OR. RR EVEN AND UNLABORED. DRESSING TO RIGHT SHOULDER, CDI WITH SLING IN PLACE. RIGHT RADIAL PULSE PALPABLE.
--- NOTE | 2019-11-24 12:41 | P.OP_ITS ---
Operative Report Date of procedure: November 24, 2019 Pre-op Diagnosis: Right proximal humerus from Post-op diagnosis: same Post-op Findings: The patient had a three-part proximal humerus fracture consisting of a minimally displaced greater tuberosity fragment and a surgical neck fracture with 100% displacement of the shaft relative to the head Procedure Done: Open reduction and internal fixation right proximal humerus Implants: Narciso Variax proximal humeral plate Pathology: none sent Anesthesia: General Estimated blood loss (mL): 100 Findings: The patient had a fracture of the proximal humerus with a minimally di splaced fracture of the greater tuberosity and a surgical neck fracture of the 100% medial displacement of the shaft relative to the head. Condition: stable Disposition: PACU Brief History: The patient is a 69-year-old female sustained a nondisplaced fracture of her right proximal humerus on 10/19/2019. She was managed conservatively. She had considerable medical comorbidities ultimately was discharged home to hospice care. The patient presented to my clinic yesterday complaining of severe intolerable pain that she could not manage at home. Radiographs showed displacement across the surgical neck. Due to the patient's medical comorbidities she was admitted to the hospital for optimization prior to surgical stabilization which was done today. Procedure: The patient was taken to the operating room and given a general anesthesia. She was positioned in the beachchair position with her left shoulder exposed. A 10 cm long incision was made from the coracoid extending distally. The deltopectoral interval was identified and the cephalic pain retracted with the deltoid laterally. Adhesions but between the deltoid and lateral humerus were released manually bringing us to the fracture site. Fibrotic tissue was removed between the humeral shaft and head until the shaft could be displaced laterally. Short very active plate was laced down the lateral humerus and provisionally held with a reduction clamp. Visional fixation was accomplished through the oblong hole which allowed fine tuning of the occipital distal location of the plate. Steinmann pin was placed into the head to limit a varus deformity and locking screws were placed into the femoral head. The most distal locking hole I bicortical screw was placed into to the post proximal shaft. One additional locking in the most distal nonlocking screw were applied completing the construct. Intraoperative images were obtained showing satisfactory reduction of the humeral head on the shaft. The wound was irrigated with saline. The deltopectoral interval was closed with 0 Vicryl. The subcutaneous tissue was closed with 2-0 Vicryl. The skin was closed with skin winsome. Sterile dressings were applied. Patient was placed in a sling and taken recovery room in stable condition.
[2019-11-24] MEDS: sodium chloride 0.9% 500 ML 999 ML IV (13:10)
[2019-11-24 13:43] LABS: Basophils % 0.3 %; Eosinophils # 0.1 10^3/uL (0.0-0.8); Eosinophils % 1.1 %; Hematocrit 27.1 % (37.0-47.0); Hemoglobin 8.2 g/dL (11.5-15.3); Lymphocytes # 0.4 10^3/uL (0.8-4.8); Lymphocytes % 3.7 %; Mean Corpuscular HGB Conc 30.3 g/dL (30.0-36.0); Mean Corpuscular Hemoglobin 29.3 pg (28.0-34.0); Mean Corpuscular Volume 96.8 fL (81-99); Mean Platelet Volume 9.6 fL (7.4-10.4); Monocytes # 0.1 10^3/uL (0.2-0.9); Monocytes % 1.3 %; Neutrophils # 9.85 10^3/uL (1.8-7.7); Neutrophils % 93.2 %; Nucleated Red Blood Cells % 0 %; Platelet Count 327 10^3/cmm (130-400); Red Cell Distribution Width 16.9 % (12.1-15.1); White Blood Count 10.6 10^3/uL (4.0-10.0)
[2019-11-24] MEDS: albumin 12.5 GM/250 ML VIAL IV (14:04)
[2019-11-24 14:07] LABS: Anion Gap 10.4 (5-19); Blood Urea Nitrogen 12 mg/dL (8-23); Calcium 8.4 mg/dL (8.5-10.5); Carbon Dioxide 36 mmol/L (22-29); Chloride 93 mmol/L (98-107); Glomerular Filtration Rate 34.3 mL/min (90-130); Glucose 101 mg/dL (65-115); Magnesium 1.6 mg/dL (1.7-2.3); Osmolality Calculated 282 mOsm/kg (285-295); Potassium 3.4 mmol/L (3.5-5.1); Sodium 136 mmol/L (136-145)
--- NOTE | 2019-11-24 14:50 | PM.PACU ---
PACU note Post-Anesthesia Exam: awake and other (asympatomic hypotension despite NS 750 cc and albumin 250 cc - will transfer to CSU ) Disposition: other (transfer to CSU )
--- NOTE | 2019-11-24 14:54 | SUR.PHASEI ---
9008 PATIENT TO CSU. DENIES PAIN. DRESSING TO RIGHT SHOULDER, SMALL AMOUNT OF BLOOD NOTED, SLING IN PLACE. RIGHT RADIAL PULSE PALPABLE AND STRONG. ALBUMIN DRIP RUNNING.
[2019-11-24 16:45] LABS: Albumin Level 3.1 g/dL (3.5-5.2); Anion Gap 9.6 (5-19); Blood Urea Nitrogen 14 mg/dL (8-23); Calcium 8.3 mg/dL (8.5-10.5); Carbon Dioxide 35 mmol/L (22-29); Chloride 96 mmol/L (98-107); Glomerular Filtration Rate 40.5 mL/min (90-130); Glucose 105 mg/dL (65-115); Magnesium 1.6 mg/dL (1.7-2.3); Phosphorus 3.7 mg/dL (2.5-4.5); Potassium 3.6 mmol/L (3.5-5.1); Sodium 137 mmol/L (136-145)
[2019-11-24] MEDS: sodium chloride 0.9% 1,000 ML 75 ML IV (17:00)
[2019-11-24] MEDS: gabapentin 300 mg Capsule PO (17:34)
--- NOTE | 2019-11-24 18:53 | PC.NURSE ---
Contacted Dr Meehan of patients labs instructions to give 2Gm magnesium sulfate x1
--- NOTE | 2019-11-24 19:06 | PM.PN ---
Subjective Subjective: Interval history: Patient underwent shoulder ORIF today. Postoperatively she was hypotensive. He received several boluses including albumin. Currently awake alert and oriented. According to nursing staff already had a meal. No nausea or vomiting. No chest pain, shortness of breath, cough, palpitations. Vitals/I&O/Wt Last Vital Signs Temp 98.7 F 11/24/19 15:00 Pulse 112 H 11/24/19 15:00 Resp 10 L 11/24/19 15:00 BP 84/47 11/24/19 15:00 Pulse Ox 90 11/24/19 15:00 11/24/19 11/24/19 11/24/19 06:59 14:59 22:59 Intake Total 1050 / 1050 Output Total 175 / 175 Balance 875 / 875 Weight last 48 hrs Weight 31.751 kg Physical Exam Narrative: EXAM NARRATIVE: the patient is awake, but a little groggy. No acute distress. Mood and affect are appropriate. Responses are adequate. Skin is warm and dry. Moist mucous membranes. Eyes PERRL, extraocular muscles intact. Normal speech. Neck supple. No JVD Lungs clear bilaterally. No respiratory distress Heart S1, S2, regular Abdomen soft, nontender, bowel sounds are present. Colostomy bag. Brown liquid stool in the bag. No blood. Extremities no edema or cyanosis. No cough tenderness bilaterally. Data : 11/24/19 13:37 11/24/19 16:15 Micro: Microbiology 11/23/19 16:10 Blood Culture - Preliminary Blood NEGATIVE TO DATE 11/23/19 16:15 Blood Culture - Preliminary Blood NEGATIVE TO DATE A&P Additional A&P Information Janene Gallegos is a 69 year old female with past medical history of ulcerative colitis, colostomy, short gut syndrome, CKD3,malnutrition, generalized chronic deconditioning and debilitated state, chronic electrolyte abnormalities, chronic anemia who was sent by her orthopedic surgeon to ER for admission. right humeral neck fracture. sp ORIF. Will continue pain medications as needed. PT/OT orders per ortho. History of ulcerative colitis and short gut syndrome. Dehydration and acute kidney injury secondary to #3. Continue IV fluids. Hypokalemia. Replaced. Continue monitoring. Hypomagnesemia. Replacing for now. History of chronic kidney disease. Kidney function has improved today. Continue monitoring History of coronary artery disease. She denies any history of congestive heart failure or other cardiac conditions. Denies shortness of breath and chest pain. Continue current management for now. History of recent asymptomatic coronavirus infection. This was about 4 weeks ago. I discussed with the ER doctors. According to them they checked CDC website and the patient doesn't need additional testing according to current recommendations. Recent Proteus bacteremia. No evidence of infection at this time. She also has history of C. difficile infection. Receive treatment for this. Chronic anemia. Anemia work-up. Continue monitoring. DVT prophylaxis. Heparin. Full code. Attestations Medical Necessity Statement*: Will reassess tomorrow and understand her discharge needs. 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
[2019-11-24] MEDS: magnesium sulfate premix 2 GM/50 ML PIGGYBACK IV (19:28)
[2019-11-24] MEDS: HYDROcodone-acetaminophen 10-325 mg Tablet 1 TAB PO (21:07)
--- NOTE | 2019-11-24 23:58 | PC.NURSE ---
Patients colostomy was leaking approximately around 2129 and staff changed colostomy and gave good stoma and elisa care. New bag applied and working properly. Continue care.
[2019-11-25] VITALS (9 sets, daily range): BP systolic 98–123; BP diastolic 49–65; PULSE 94–113; RESP 12–18; TEMP 36.6–37.5; O2SAT 94–100
[2019-11-25] MEDS: morphine 4 mg/mL SDV 1 mL 2 MG IVP ×4 (00:56→22:14)
[2019-11-25] MEDS: clindamycin 600 MG/50 ML PREMIX 100 MG IV ×2 (01:46→10:43)
[2019-11-25] MEDS: HYDROcodone-acetaminophen 5-325 mg Tablet PO ×3 (02:07→18:41)
[2019-11-25] MEDS: sodium chlor 0.9% + KCl 20 mEq 20 MEQ/1,000 ML BAG 75 MEQ IV (02:24)
--- NOTE | 2019-11-25 02:27 | PC.NURSE ---
Patient experiencing frequent episodes of pain during shift, PRN pain medication given per orders for pain and breakthrough pain. Continue care.
[2019-11-25 04:35] LABS: Basophils % 0.3 %; Eosinophils # 0.1 10^3/uL (0.0-0.8); Eosinophils % 0.8 %; Hematocrit 24.8 % (37.0-47.0); Hemoglobin 7.5 g/dL (11.5-15.3); Lymphocytes # 1.4 10^3/uL (0.8-4.8); Lymphocytes % 12.8 %; Mean Corpuscular HGB Conc 30.2 g/dL (30.0-36.0); Mean Corpuscular Hemoglobin 29.6 pg (28.0-34.0); Monocytes # 1.3 10^3/uL (0.2-0.9); Monocytes % 12.2 %; Neutrophils # 8.09 10^3/uL (1.8-7.7); Neutrophils % 73.6 %; Nucleated Red Blood Cells % 0 %; Platelet Count 317 10^3/cmm (130-400); Red Blood Count 2.53 10^6/uL (4.1-5.3)
--- NOTE | 2019-11-25 04:47 | PC.NURSE ---
Patient reports the pain medication ordered isn't effective for her pain control. Patient states pills don't work for her pain. All forms of pain medication ordered have been administered per time compliance. Continue care.
[2019-11-25 04:59] LABS: Albumin Level 2.8 g/dL (3.5-5.2); Anion Gap 11.3 (5-19); Blood Urea Nitrogen 16 mg/dL (8-23); Calcium 7.9 mg/dL (8.5-10.5); Carbon Dioxide 35 mmol/L (22-29); Chloride 93 mmol/L (98-107); Glomerular Filtration Rate 40.5 mL/min (90-130); Glucose 106 mg/dL (65-115); Phosphorus 2.5 mg/dL (2.5-4.5); Potassium 3.3 mmol/L (3.5-5.1); Sodium 136 mmol/L (136-145)
[2019-11-25 05:00] LABS: Magnesium 2.3 mg/dL (1.7-2.3)
--- NOTE | 2019-11-25 07:39 | ANE.PACU2 ---
Inpatient post-anesthesia follow up: Airway intact: Yes Vital signs: Temperature 98 F Pulse Rate [Monito r] 52 Pulse Rate 97 Respiratory Rate 16 Blood Pressure [Le ft Arm] 119/34 Blood Pressure 106/53 Pulse Oximetry 99 Oxygen Delivery Me thod [ Room Air Current Rate & Del lashell] Oxygen Delivery Me thod Nasal Cannula Oxygen Flow Rate 2 Fraction of Inspir ed Oxygen Hydration adequate: Yes Nausea and vomiting: No Pain level: 4 Mental status: Baseline
[2019-11-25] MEDS: gabapentin 300 mg Capsule PO ×2 (08:22→18:18)
--- NOTE | 2019-11-25 10:52 | PM.PN ---
Subjective Subjective: Interval history: The patient is doing well. Denies any active complaints. The pain in the surgical area is still present, but medications are helping. Denies dizziness or lightheadedness. No confusion. No chest pain, shortness of breath, cough, palpitations. No nausea or vomiting. Medications: Reviewed: Yes Medication Review Details: Generic Name Dose Route Start Last Admin Trade Name Freq PRN Reason Stop Dose Admin Acetaminophen 650 mg 11/23/19 15:48 11/23/19 22:14 Tylenol PO 650 mg Q6H PRN Administration Mild/Mod Pain Or Temp >/= 101 Hydrocodone Bitart /Acetaminophen 1 - 2 tab 11/24/19 15:00 11/25/19 10:45 [place] 5-325 Mg PO 2 tab Q4H PRN Administration BREAKTHROUGH PAIN Gabapentin 300 mg 11/23/19 18:00 11/25/19 08:22 Neurontin PO 300 mg BID SERENITY Administration Hydroxyzine [place] 25 mg 11/23/19 17:19 11/23/19 18:30 Vistaril PO 25 mg TID PRN Administration Anxiety Clindamycin HCl/De xtrose 600 mg in 50 mls @ 100 mls/hr 11/24/19 18:30 11/25/19 10:43 Cleocin IV 11/25/19 10:59 100 mls/hr Q8H SERENITY Administration Protocol Morphine Sulfate 2 mg 11/25/19 07:40 11/25/19 08:21 Morphine IVP 2 mg Q2H PRN Administration PAIN not managed by oral agent Non-Formulary Medi cation 3,000 mmu cells 11/24/19 09:00 11/25/19 09:26 Lactobacillus Co mbination No.4 [Pr obiotic] PO Not Given DAILY SERENITY Vitals/I&O/Wt Last Vital Signs Temp 98 F 11/25/19 04:21 Pulse 94 11/25/19 07:45 Resp 17 11/25/19 08:21 BP 123/64 11/25/19 07:45 Pulse Ox 100 11/25/19 08:21 11/24/19 11/25/19 11/25/19 22:59 06:59 14:59 Intake Total 50 / 1100 855 / 1955 100 / 100 Output Total 250 / 425 Balance -200 / 675 855 / 1530 100 / 100 Weight last 48 hrs Weight 31.751 kg Physical Exam Narrative: EXAM NARRATIVE: the patient is awake, alert, and oriented. No acute distress. Mood and affect are appropriate. Responses are adequate. Skin is warm and dry. Moist mucous membranes. Eyes PERRL, extraocular muscles intact. Normal speech. Neck supple. No JVD Lungs clear bilaterally. No respiratory distress Heart S1, S2, regular Abdomen soft, nontender, bowel sounds are present. Colostomy bag. Brown liquid stool in the bag. No blood. Extremities no edema or cyanosis. No cough tenderness bilaterally. Right shoulder area dressing is dry and clean. Data : 11/25/19 03:25 11/25/19 03:25 Micro: Microbiology 11/23/19 16:10 Blood Culture - Preliminary Blood NEGATIVE TO DATE 11/23/19 16:15 Blood Culture - Preliminary Blood NEGATIVE TO DATE A&P Additional A&P Information Janene Gallegos is a 69 year old female with past medical history of ulcerative colitis, colostomy, short gut syndrome, CKD3,malnutrition, generalized chronic deconditioning and debilitated state, chronic electrolyte abnormalities, chronic anemia who was sent by her orthopedic surgeon to ER for admission. Right humeral neck fracture. sp ORIF. Postoperative day 1. Will continue pain medications as needed. PT/OT orders per ortho. Case management is assessing her discharge needs. History of ulcerative colitis and short gut syndrome. Patient is prone to dehydration. We will continue monitoring her hydration status. Dehydration and acute kidney injury secondary to #3. On top of chronic kidney disease. We will stop IV fluids this morning and continue monitoring her. Her kidney function has improved. Hypokalemia and hypomagnesemia. Replace and monitor. History of coronary artery disease. She denies any history of congestive heart failure or other cardiac conditions. Denies shortness of breath and chest pain. Continue current management for now. History of recent asymptomatic coronavirus infection. This was about 4 weeks ago. I discussed with the ER doctors. According to them they checked CDC website and the patient doesn't need additional testing according to current recommendations. Recent Proteus bacteremia. No evidence of infection at this time. She also has history of C. difficile infection. Receive treatment for this. Acute on chronic anemia. H&H has dropped secondary to expected acute blood loss. No indication for transfusion yet. Has iron deficiency. Replacing. Continue monitoring. DVT prophylaxis. Will discuss with Dr. Arevalo if it is okay to use Lovenox for DVT prophylaxis. Full code. Plan of care was discussed with the patient. She verbalized understanding and agreement. Attestations Medical Necessity Statement*: Plan of care requires that she remains hospitalized for now. Monitoring anemia and waiting for discharge assessment. Coding Level of Care Code Acute Granite Setter for Rudolph Miller
--- NOTE | 2019-11-25 11:06 | PM.PN ---
Subjective Subjective: Interval history: Patient complains of pain in the right shoulder today although looks much more comfortable than what she did in clinic previously Vitals/I&O/Wt Last Vital Signs Temp 98 F 11/25/19 04:21 Pulse 94 11/25/19 07:45 Resp 17 11/25/19 08:21 BP 123/64 11/25/19 07:45 Pulse Ox 100 11/25/19 08:21 11/24/19 11/25/19 11/25/19 22:59 06:59 14:59 Intake Total 50 / 1100 855 / 1955 100 / 100 Output Total 250 / 425 Balance -200 / 675 855 / 1530 100 / 100 Weight last 48 hrs Weight 70 lb Physical Exam Narrative: EXAM NARRATIVE: Right shoulder dressing clean and dry. Well move digits right hand without motor deficits. Complains of pain flexing extending elbow and will not abduct shoulder. No sensory deficits are noted Data : 11/25/19 03:25 11/25/19 03:25 Micro: Microbiology 11/23/19 16:10 Blood Culture - Preliminary Blood NEGATIVE TO DATE 11/23/19 16:15 Blood Culture - Preliminary Blood NEGATIVE TO DATE A&P Additional A&P Information Begin active range of motion of elbow wrist and hand with OT. Patient can perform very gentle pendulum exercises of the shoulder. Her quality of fixation was of concern will avoid any real aggressive range of motion with her, knowingly excepting some stiffness. Attestations Medical Necessity Statement*: As per medicine Coding Level of Care Code Acute Supervisor Powdered Sugar for Rudolph Miller
[2019-11-25] MEDS: ondansetron 2 mg/ML SDV 2 mL 4 MG IVP (13:29)
--- NOTE | 2019-11-25 14:04 | PC.NURSE ---
[place] Sacral Wound Notified Dr. Meehan in person to check on pt's sacral wound. I also talked to wound care services per his order to call them. Wound care services stated, pt will need to be seen by a carbon printer wound doctor. And it is Dr. Paige. Notified Dr. Meehan notified and he also looked at the pt's wound. He said consulting doctor will come and see her.
[2019-11-26] VITALS (8 sets, daily range): BP systolic 108–130; BP diastolic 63–78; PULSE 90–102; RESP 14–20; TEMP 37.1–37.6; O2SAT 96–97
[2019-11-26] MEDS: morphine 4 mg/mL SDV 1 mL 2 MG IVP ×2 (04:48→09:31)
--- NOTE | 2019-11-26 05:22 | PC.NURSE ---
Patient c/o pain in big toe on right foot. Nurse notified
[2019-11-26 05:27] LABS: Basophils % 0.4 %; Eosinophils # 0.6 10^3/uL (0.0-0.8); Eosinophils % 5.4 %; Hematocrit 25.4 % (37.0-47.0); Hemoglobin 7.6 g/dL (11.5-15.3); Lymphocytes # 1.3 10^3/uL (0.8-4.8); Lymphocytes % 11.3 %; Mean Corpuscular HGB Conc 29.9 g/dL (30.0-36.0); Mean Corpuscular Hemoglobin 29.6 pg (28.0-34.0); Mean Corpuscular Volume 98.8 fL (81-99); Mean Platelet Volume 9.7 fL (7.4-10.4); Monocytes % 8.5 %; Neutrophils # 8.34 10^3/uL (1.8-7.7); Nucleated Red Blood Cells % 0 %; Platelet Count 273 10^3/cmm (130-400); Red Blood Count 2.57 10^6/uL (4.1-5.3); Red Cell Distribution Width 17.1 % (12.1-15.1); White Blood Count 11.3 10^3/uL (4.0-10.0)
[2019-11-26 05:52] LABS: Magnesium 1.6 mg/dL (1.7-2.3)
[2019-11-26 05:53] LABS: Albumin Level 2.9 g/dL (3.5-5.2); Anion Gap 10.5 (5-19); Blood Urea Nitrogen 15 mg/dL (8-23); Calcium 8.5 mg/dL (8.5-10.5); Carbon Dioxide 29 mmol/L (22-29); Chloride 99 mmol/L (98-107); Glomerular Filtration Rate 44.4 mL/min (90-130); Glucose 111 mg/dL (65-115); Phosphorus 2.5 mg/dL (2.5-4.5); Potassium 4.5 mmol/L (3.5-5.1); Sodium 134 mmol/L (136-145)
--- NOTE | 2019-11-26 08:49 | PM.CONSULT ---
Providers/Reason For Consult Consulting Physican/Specialty*: General Surgery Gaston Paige MD Reason for Consult*: Sacral pressure ulcer. Attending Physician: Oscar Meehan Primary Care Provider: Veda Gilman MD History of Present Illness History of Present Illness Janene Gallegos is a 69 year old female who apparently has had a sacral pressure ulcer for some time. She has had 2 recent falls, breaking her right hip and then her right shoulder. She is now status post independent repair of both. She has required extended periods of time in bed as a result of the recent events. She said the wound had developed following her initial fall. She seems to indicate that she was being seen for this in [place] but it sounds like this was simply wound care in the hospital secondary to her falls and orthopedic injuries; I am not sure if she has any outpatient wound care that has been set up. She says her physicians indicated the last time they saw it that the wound was improving. Meds/Allergies Home Medications and Allergies Home Medications Medication Instructions Recorded Confirmed Last Taken Type melatonin 3 mg PO BEDTIME PRN 03/01/19 11/23/19 10/07/19 History Probiotic 3,000 mmu cells PO DAILY #0 05/02/19 11/23/19 11/22/19 History aspirin 81 mg tablet,delayed 81 mg PO DAILY #90 tab 05/10/19 11/23/19 10/07/19 Rx release promethazine 25 mg tablet 25 mg PO QID PRN #30 tab 10/14/19 11/23/19 11/23/19 Rx gabapentin 300 mg PO BID 11/23/19 11/23/19 11/23/19 History hydrocodone-acetaminophen 1 tab PO Q8H PRN 11/23/19 11/23/19 Unknown History hydroxyzine pamoate 25 mg PO TID PRN 11/23/19 11/23/19 Unknown History potassium chloride 40 meq PO BID 11/23/19 11/23/19 11/23/19 History tramadol 50 - 100 mg PO Q6H PRN 11/23/19 11/23/19 11/23/19 History Allergies Allergy/AdvReac Type Severity Reaction Status Date / Time amoxicillin Allergy ALGY-Hives Verified 11/23/19 13:19 cefazolin [From Ancef] Allergy ALGY-Rash Verified 11/23/19 13:19 cephalexin [From Keflex] Allergy ALGY-Rash Verified 11/23/19 13:19 codeine Allergy ALGY-Hives Verified 11/23/19 13:19 doxycycline Allergy ALGY-Hives Verified 11/23/19 13:19 erythromycin base Allergy ALGY-Hives Verified 11/23/19 13:19 [From E.E.S.] latex Allergy Unknown Verified 11/23/19 13:19 metoclopramide Allergy Unknown Verified 11/23/19 13:19 neomycin Allergy ALGY-Hives Verified 11/23/19 13:19 Penicillins Allergy ALGY-Hives Verified 11/23/19 13:19 polyethylene glycol Allergy ADR-Swelling Verified 11/23/19 13:19 of the Eye pregabalin [From Lyrica] Allergy ALGY-Swell Verified 11/23/19 13:19 Lip/Tongue/Throat prochlorperazine Allergy ALGY-Hives Verified 11/23/19 13:19 [From Compazine] propoxyphene [From Darvon] Allergy ALGY-Hives Verified 11/23/19 13:19 sapropterin Allergy ADR-Swelling Verified 11/23/19 13:19 [From Tetrahydrobiopterin of the Eye Di-HCL] scopolamine Allergy ALGY-Hives Verified 11/23/19 13:19 Sulfa (Sulfonamide Allergy ALGY-Hives Verified 11/23/19 13:19 Antibiotics) tegaserod [From Zelnorm] Allergy ALGY-Hives Verified 11/23/19 13:19 tetracycline Allergy ALGY-Hives Verified 11/23/19 13:19 tetrahydrozoline Allergy ADR-Swelling Verified 11/23/19 13:19 [From Visine] of the Eye Current Medications Current Medications Generic Name Dose Route Start Last Admin Trade Name Freq PRN Reason Stop Dose Admin Acetaminophen 650 mg 11/23/19 15:48 11/23/19 22:14 Tylenol PO 650 mg Q6H PRN Administration Mild/Mod Pain Or Temp >/= 101 Hydrocodone Bitart/Acetaminophen 1 - 2 tab 11/24/19 15:00 11/25/19 18:41 [place] 5-325 Mg PO 2 tab Q4H PRN Administration BREAKTHROUGH PAIN Gabapentin 300 mg 11/23/19 18:00 11/25/19 18:18 Neurontin PO 300 mg BID SERENITY Administration Hydroxyzine Pamoate 25 mg 11/23/19 17:19 11/23/19 18:30 Vistaril PO 25 mg TID PRN Administration Anxiety Morphine Sulfate 2 mg 11/25/19 07:40 11/26/19 04:48 Morphine IVP 2 mg Q2H PRN Administration PAIN not managed by oral agent Non-Formulary Medication 3,000 mmu cells 11/24/19 09:00 11/25/19 09:26 Lactobacillus Combination No.4 [Probiotic] PO Not Given DAILY SERENITY Ondansetron HCl 4 mg 11/23/19 15:48 11/25/19 13:29 Zofran IVP 4 mg Q6H PRN Administration vomiting, or N/V if npo PFSH Acute PFSH: Medical History Atrial fibrillation Chronic anemia Chronic kidney disease, stage III (moderate) Crohn's disease Hyperaldosteronism Hypersomnia Hypokalemia Hypomagnesemia Local infection due to Port-A-Cath Myocardial infarction (lateral wall) Severe protein-calorie malnutrition Systolic congestive heart failure Surgical History H/O ileostomy H/O total colectomy History of delivery x4 Hx of appendectomy Port-A-Cath in place (10/12/19) right IJ Family History Other CAD (coronary artery disease) Cancer Congestive heart failure Diabetes Hyperlipidemia Social History Smoking and tobacco status: never smoked Second hand smoke exposure: No Alcohol intake: never Lives independently: Yes Household members: spouse Marital status: Current occupational status: retired History of recent travel: No Current gender identity: Female Vitals/I&O/Wt Last Vital Signs Temp 99.4 F 11/26/19 07:26 Pulse 90 11/26/19 07:26 Resp 16 11/26/19 07:26 BP 130/69 11/26/19 07:26 Pulse Ox 96 11/26/19 07:26 11/25/19 11/26/19 11/26/19 22:59 06:59 14:59 Intake Total 1120 / 1850 240 / 1850 Balance 1119 240 / 1850 Physical Exam Narrative: EXAM NARRATIVE: Upon evaluation of the sacral region, the patient has a somewhat oval open pressure room to the right side of the sacrum which is covered with a padded dressing. It extends down to the edge of the sacrum but the bone is not apparent, making this a stage III. There is very little exudate present. There is no necrotic tissue anywhere, but the skin does undermine in every direction for a short distance. A&P Assessment and plan (1) Stage III pressure ulcer: This has apparently been present for some time but the patient reports that her physicians have told her it is improving. There is no urgent need for any debridement, but this will take some time and further wound care to heal. I would recommend getting the patient established with the [facility] wound clinic if she has not already been upon discharge. Status: Acute Consult Attestations Medical Necessity Statement: See admitting service's notation. 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
[2019-11-26] MEDS: gabapentin 300 mg Capsule PO ×2 (09:16→18:27)
[2019-11-26] MEDS: HYDROcodone-acetaminophen 5-325 mg Tablet PO ×4 (10:19→23:49)
[2019-11-26] MEDS: magnesium sulfate premix 2 GM/50 ML PIGGYBACK IV (10:19)
--- NOTE | 2019-11-26 10:22 | PC.SOCIAL ---
IMM Update Pg. 2 of IMM updated and reviewed with patient. Copy provided.
[2019-11-26] MEDS: TRAMadol 50 mg Tablet PO (13:54)
--- NOTE | 2019-11-26 14:59 | PM.PN ---
Subjective Subjective: Interval history: The patient is doing okay. Still complaining of right shoulder area pain. No evidence of bleeding. She denies fevers or chills. No nausea or vomiting. No chest pain, shortness of breath, cough, palpitations. No abdominal pain. Vitals/I&O/Wt Last Vital Signs Temp 99.4 F 11/26/19 12:00 Pulse 102 H 11/26/19 12:00 Resp 18 11/26/19 12:00 BP 113/67 11/26/19 12:00 Pulse Ox 96 11/26/19 12:00 11/25/19 11/26/19 11/26/19 22:59 06:59 14:59 Intake Total 1120 / 1610 240 / 1850 600 / 600 Balance 1120 / 1610 240 / 1850 600 / 600 Physical Exam Narrative: EXAM NARRATIVE: the patient is awake, alert, and oriented. No acute distress. Mood and affect are appropriate. Responses are adequate. Skin is warm and dry. Moist mucous membranes. Eyes PERRL, extraocular muscles intact. Normal speech. Neck supple. No JVD Lungs clear bilaterally. No respiratory distress Heart S1, S2, regular Abdomen soft, nontender, bowel sounds are present. Colostomy bag. Brown liquid stool in the bag. No blood. Has a right gluteal area large decubitus ulcer. Stage III. No significant discharge. No evidence of surrounding redness or infection. Extremities no edema or cyanosis. No cough tenderness bilaterally. Right shoulder area dressing is dry and clean. Data : 11/26/19 05:13 11/26/19 05:13 A&P Additional A&P Information Janene Gallegos is a 69 year old female with past medical history of ulcerative colitis, colostomy, short gut syndrome, CKD3,malnutrition, generalized chronic deconditioning and debilitated state, chronic electrolyte abnormalities, chronic anemia who was sent by her orthopedic surgeon to ER for admission. Right humeral neck fracture. sp ORIF. Postoperative day 2. Will continue pain medications as needed. PT/OT orders per ortho. Case management is assessing her discharge needs. The patient agreed to go to acute rehab facility. History of ulcerative colitis and short gut syndrome. Patient is prone to dehydration. We will continue monitoring her hydration status. Currently she is doing well. Dehydration and acute kidney injury secondary to #3. On top of chronic kidney disease. Improved and stable kidney function. Continue monitoring. Hypokalemia and hypomagnesemia. Replace and monitor. We will try to maintain electrolytes avoid enteral supplements. History of coronary artery disease. She denies any history of congestive heart failure or other cardiac conditions. Denies shortness of breath and chest pain. Continue current management for now. History of recent asymptomatic coronavirus infection. This was about 4 weeks ago. I discussed with the ER doctors. According to them they checked [facility] website and the patient doesn't need additional testing according to current recommendations. Recent Proteus bacteremia. No evidence of infection at this time. She also has history of C. difficile infection. Receive treatment for this. Acute on chronic anemia. H&H has dropped secondary to expected acute blood loss. No indication for transfusion yet. Has iron deficiency. Replacing. Continue monitoring. DVT prophylaxis. Lovenox. Right gluteal area large decubitus ulcer. I appreciate Dr. Paige's input. We will continue conservative management per his recommendations. I asked the case management to check and make sure that the patient has outpatient wound care available for discharge. Full code. Plan of care was discussed with the patient. She verbalized understanding and agreement. Attestations Medical Necessity Statement*: Pending placement to acute rehab facility. We will discharge her when placement is complete. Coding Level of Care Code Acute Windows Vmware Engineer for Rudolph Miller
[2019-11-26] MEDS: magnesium oxide 400 mg tablet PO (18:27)
[2019-11-27] VITALS: BP 111/63; PULSE 86; RESP 18; TEMP 36.9; O2SAT 98
[2019-11-27 04:00] VITALS: BP 106/68; PULSE 83; RESP 16; TEMP 37.1; O2SAT 97
[2019-11-27 05:37] VITALS: RESP 18
[2019-11-27] MEDS: morphine 4 mg/mL SDV 1 mL 2 MG IVP (05:37)
[2019-11-27 07:03] VITALS: BP 122/66; PULSE 84; RESP 18; TEMP 37.2; O2SAT 97
[2019-11-27] MEDS: HYDROcodone-acetaminophen 5-325 mg Tablet PO ×2 (08:37→14:13)
[2019-11-27] MEDS: gabapentin 300 mg Capsule PO (08:38)
[2019-11-27] MEDS: magnesium oxide 400 mg tablet PO (08:39)
[2019-11-27] MEDS: TRAMadol 50 mg Tablet PO ×2 (10:47→16:25)
[2019-11-27 11:02] VITALS: BP 120/62; PULSE 64; RESP 20; TEMP 36.9; O2SAT 95
--- NOTE | 2019-11-27 16:42 | PM.DCS ---
Discharge Providers Date of Admission: 11/23/19 14:46 Date of Discharge: November 27, 2019 Attending Provider at Admission: Oscar Meehan Attending Provider at Discharge: Oscar Meehan Primary Care Provider: Veda Gilman MD Diagnoses at Discharge Discharge Diagnosis (1) Stage III pressure ulcer: Status: Acute Reason for Visit Reason for Visit: Right Shoulder Pain Hospital Course Discharge Summary: Janene Gallegos is a 69 year old female with past medical history of ulcerative colitis, colostomy, short gut syndrome, CKD3,malnutrition, generalized chronic deconditioning and debilitated state, chronic electrolyte abnormalities, chronic anemia who was sent by her orthopedic surgeon to ER for admission. She underwent open reduction internal fixation for right humeral neck fracture. Postoperative day 3. Currently the pain is well controlled. She was cleared by physical therapy for discharge home. She did not meet criteria for rehab according to the physical therapy. She is doing well and is eager to go home. History of ulcerative colitis and short gut syndrome. Patient is prone to dehydration. Currently maintaining her hydration. Dehydration and acute kidney injury secondary to #3. On top of chronic kidney disease. Resolved Hypokalemia and hypomagnesemia. Replaced. History of coronary artery disease. She denies any history of congestive heart failure or other cardiac conditions. Denies shortness of breath and chest pain. Continue current management. History of recent asymptomatic coronavirus infection. This was about 4 weeks ago. No respiratory complaints or fever. Recent Proteus bacteremia. No evidence of infection at this time. She also has history of C. difficile infection. Received treatment for this. Acute on chronic anemia. H&H has dropped secondary to expected acute blood loss. No indication for transfusion yet. Has iron deficiency. Replacing. Continue monitoring. DVT prophylaxis. Received Lovenox. Right gluteal area large decubitus ulcer. Continue wound care at home. Referral is provided to continue follow-up with Dr. Bell Discharge Data Data Completed and Pending: Completed Studies During Hospitalization Category Date Time Status XR chest 1V awilda ble 33792 Urgent Exams 11/23/19 13:20 Completed CV echo complete* [id number] Routine Ultrasound 11/24/19 08:23 Completed CV echo limited 9 0062 Routine Ultrasound 11/23/19 15:42 Completed Pending at discharge Category Date Time Status Blood Culture Rou gene Lab 11/23/19 16:10 Results Complete Blood Co unt w/Auto AM LABS Lab 11/28/19 04:00 Ordered Magnesium AM LABS Lab 11/28/19 04:00 Ordered Renal Function Pa cj AM LABS Lab 11/28/19 04:00 Ordered Urinalysis Routin e Lab 11/23/19 15:49 Uncollected Vitals: Last Vital Signs Temp 98.5 F 11/27/19 11:02 Pulse 64 11/27/19 11:02 Resp 20 H 11/27/19 11:02 BP 120/62 11/27/19 11:02 Pulse Ox 95 11/27/19 11:02 Discharge Plan Discharge Patient Disposition: Home Condition: Stable Prescriptions: New magnesium oxide 400 mg (241.3 mg magnesium) Tablet 400 mg PO BID Qty: 20 RF: 0 hydrocodone-acetaminophen 5-325 mg Tablet 1 - 2 tab PO Q6H PRN (Reason: Breakthrough Pain) Qty: 40 RF: 0 Continued Aspir-81 81 mg tablet,delayed release (DR/EC) 81 mg PO DAILY Qty: 90 RF: 2 promethazine 25 mg tablet 25 mg PO QID PRN (Reason: Nausea) Qty: 30 RF: 0 melatonin 3 mg Tablet 3 mg PO BEDTIME PRN (Reason: Sleep) RF: 0 gabapentin 300 mg capsule 300 mg PO BID RF: 0 tramadol 50 mg Tablet 50 - 100 mg PO Q6H PRN (Reason: Pain) RF: 0 hydroxyzine pamoate 25 mg Capsule 25 mg PO TID PRN (Reason: Anxiety) RF: 0 potassium chloride 20 mEq Tablet Extended Release 40 meq PO BID RF: 0 Probiotic 3 billion cell Capsule 3,000 mmu cells PO DAILY Qty: 0 RF: 0 Discontinued hydrocodone-acetaminophen 10-325 mg Tablet 1 tab PO Q8H PRN (Reason: Pain) RF: 0 Discharge Orders: Discharge Order (Routine); Ordered 11/27/19 Ordered By: Oscar Meehan Other Ambulatory Orders: Basic Metabolic Panel (Routine) Timeframe: 1 Week Facility: [facility] - Location: Lab - Main Lab Ordered By: Oscar Meehan Complete Blood Count w/Auto (Routine) Timeframe: 1 Week Location: Determined by Patient Ordered By: Oscar Meehan Magnesium (Routine) Timeframe: 1 Week Facility: [facility] - Location: Lab - Main Lab Ordered By: Oscar Meehan Referrals: [facility] [Outside] Aubrey Arevalo MD [Physician] - 1 week (Please call to make an appointment on Thursday to be seen in one week.) [facility], [Staff Physician] - 1 week (Please call [facility] on Thursday to make an appointment with Dr. Go to be seen in one week.) Veda Gilman MD [Primary Care Provider] - 7-10 days (Please call to make an appointment on Thursday to be seen in 7-10 days.) Discharge Diet: Usual diet Discharge Activity: Increase activity as tolerated and As per PT/OT instructions Patient Instructions: Magnesium Oxide (By mouth), Fractures - Humerus, Failure to Thrive (DC), Dehydration (DC), Acute Kidney Injury (DC), Clostridium Difficile Infection (DC), Chronic Wound Care (DC), Hypomagnesemia (DC) Activity Restrictions/Additional Instructions: Please come back to emergency room if develop any worsening pain, worsening mobility, weakness or dizziness, swelling or redness, signs of bleeding, chest pain, shortness of breath, cough, palpitations, nausea or vomiting, worsening diarrhea, abdominal pain or any other new complaints. Discharge Attestations Time Spent in Discharge Care*: greater than 30 min Quality Metrics Clinical Quality Measures During this hospital stay, did patient experience: None Coding Level of Care Code Acute Rating Clerk for Rudolph Miller Diagnoses Stage III pressure ulcer L89.93
--- NOTE | 2019-11-27 17:30 | PC.NURSE ---
Reviewed patient discharge instructions with patient at this time. Patient verbalized understanding of the need to make follow up appointments tomorrow with Wound Clinic and her primary care doctor. Patient verbalized understanding of prescriptions for labs and Hydrocodone. Patient's port was flushed with Heparin before removing needle. Patient tolerated well. No bleeding noted at site. Patient is A&Ox3. Respirations even and non-labored on room air. Patient has sling in place. Patient wheel chaired to private car where her daughter is. Updated patient that [employer].
[2019-11-27 17:57] VITALS: BP 120/62; PULSE 64; RESP 20; TEMP 36.9; O2SAT 95
== END 2019-11-27 17:30 | disposition home or self-care (01) | DRG 492 ==
LOC: ER 14:47 → MEDSURG 15:25 → CSU 11-24 14:59 → MEDSURG 11-25 16:01
PROVIDERS: Anesthesiology; Emergency Medicine; Orthopaedic Surgery; Admitting Provider Internal Medicine; PCP Family Medicine; Visit Provider Internal Medicine
PROC: 0PSF04Z Reposition Right Humeral Shaft with Internal Fixation Device, Open Approach (ICD-10-PCS; CPT 23615; principal; 2019-11-24 09:20)
DX: S42.231A 3-part fracture of surgical neck of right humerus, initial encounter for closed fracture (principal); L89.313 Pressure ulcer of right buttock, stage 3; N17.9 Acute kidney failure, unspecified; Z68.1 Body mass index [BMI] 19.9 or less, adult; D62 Acute posthemorrhagic anemia; E46 Unspecified protein-calorie malnutrition; S42.251A Displaced fracture of greater tuberosity of right humerus, initial encounter for closed fracture; N18.3 Chronic kidney disease, stage 3 (moderate); E86.0 Dehydration; E87.6 Hypokalemia; E83.42 Hypomagnesemia; I25.10 Atherosclerotic heart disease of native coronary artery without angina pectoris; Z86.19 Personal history of other infectious and parasitic diseases; Z79.82 Long term (current) use of aspirin; Z93.3 Colostomy status; I48.91 Unspecified atrial fibrillation; I25.2 Old myocardial infarction; W19.XXXA Unspecified fall, initial encounter; Y92.9 Unspecified place or not applicable
CPT/HCPCS: 12345; 36415; 36591; 36592; 71045; 73030; 76000; 80048; 80053; 80069; 82607; 82728; 82746; 83540; 83550; 83735; 84100; 84443; 85025; 85610; 87040; 93005; 93306; 93308; 96365; 96372; 96375; 97110; 97116; 97161; 97166; 97530; 99283; C1713; J1100; J1642; J1644; J2270; J2370; J2405; J2704; J2795; J3010; J3475; J3480; J3490; J7030; J7040; J7799; P9041

== ENCOUNTER 2019-12-02 15:23 | Outpatient (CLI) | payer MEDICARE, SELFPAY | END 2019-12-02 15:24 | disposition home or self-care (01) | PROVIDERS: PCP Family Medicine; Visit Provider Surgery | DX: L89.153 Pressure ulcer of sacral region, stage 3 (principal) | CPT/HCPCS: 11043 ==

== ENCOUNTER 2019-12-06 14:02 | Emergency (ER) | payer MEDICARE, SELFPAY ==
[2019-12-06 14:10] VITALS: BP 127/78; PULSE 98; RESP 16; TEMP 36.9; O2SAT 100; BMI 13.3
[2019-12-06 14:15] VITALS: RESP 18
--- NOTE | 2019-12-06 14:34 | XR_ITS ---
WS: [id number] XR wrist LT min 3V* [id number] REASON FOR EXAM: fall, left wrist pain FINDINGS: Transverse impaction fracture of the distal radius. Articular surface not involved. Minimal angulation and overriding. Appears to be a two-part fracture. Incidentally noted is moderately severe degenerative arthropathy in the carpometacarpal joint of the thumb with significant joint space narrowing and subchondral sclerosis. There is marked lateral sublu xation of the proximal metacarpal of the thumb. XR/XR wrist LT min 3V* [id number] IMPRESSION: Left distal radial fracture as above.
--- NOTE | 2019-12-06 14:34 | XR_ITS ---
WS: [id number] XR elbow LT min 3V* [id number] REASON FOR EXAM: fall, left elbow pain FINDINGS: No cortical disruption or other focal bony abnormality. Articular intervals are normal. No soft tissue abnormality identified. XR/XR elbow LT min 3V* [id number] IMPRESSION: No fracture or dislocation.
--- NOTE | 2019-12-06 14:34 | ED_ITS ---
HPI - Extremity Problem General: Chief complaint: Extremity Injury, Upper Stated complaint: Fall-left arm pain Time Seen by Provider: 12/06/19 14:26 History of Present Illness: HPI Narrative: 1-year-old female patient presents to the emergency department accompanied by her daughter. She reports approximately 1 hour prior to arrival, was standing in the kitchen by the stove when her right foot slipped causing her to sustain a fall. She is 1 week post ORIF right shoulder due to shoulder fracture. FOOSH injury of the left upper extremity as she attempted to brace herself to protect her right shoulder. She is complaining of left elbow and left wrist pain. She is also complaining of increased right shoulder pain. She is requesting a better brace for her right upper extremity as the arm sling is not helpful with proper arm placement per patient. She reports has a follow- up with her orthopedic surgeon tomorrow. MD Complaint: extremity pain and joint pain Onset (ago): hour(s) (1) Pain Consistency: intermittent Location: left, right and upper extremity Severity scale (1-10): 4 Quality: aching and dull Relieving factors: immobilization Exacerbating factors: range of motion Associated symptoms: Reports no associated symptoms; Deny chest pain, fever(s) or rash Review of Systems General: Reports: 10 or more systems reviewed and unremarkable except in HPI and below Const: Denies: fever(s), chills or diaphoresis Eyes: Denies: blurry vision or eye redness ENMT: Denies: throat pain, dental pain or disequilibrium Card: Denies: chest pain, palpitations or irregular heart rhythm Resp: Denies: dyspnea, productive cough, non-productive cough or wheezing GI: Denies: abdominal pain, nausea or vomiting : Denies: difficulty voiding or dysuria Musc: Reports: extremity pain (rt shoulder, left elbow, left wrist); Denies: neck pain or back pain Skin/Breast: Denies: rash or pruritus Neuro: Denies: headache(s), weakness in extremities or behavioral changes Psych: Denies: anxiety or depression Frankie/Lymph: Denies: easy bruising PFS ED PFSH: Medical History (Updated 12/06/19 @ 16:11 by JOE Marrufo) Atrial fibrillation Chronic anemia Chronic kidney disease, stage III (moderate) Crohn's disease Hyperaldosteronism Hypersomnia Hypokalemia Hypomagnesemia Local infection due to Port-A-Cath Myocardial infarction (lateral wall) Severe protein-calorie malnutrition Systolic congestive heart failure Surgical History H/O ileostomy H/O total colectomy History of delivery x4 Hx of appendectomy Port-A-Cath in place (10/12/19) right IJ Family History Other CAD (coronary artery disease) Cancer Congestive heart failure Diabetes Hyperlipidemia Social History Smoking and tobacco status: never smoked Second hand smoke exposure: No Alcohol intake: never Lives independently: Yes Household members: spouse Marital status: Current occupational status: retired History of recent travel: No Current gender identity: Female Physical Exam Const: COMMON NORMALS: no acute distress, patient oriented x3 and alert GENERAL APPEARANCE: cooperative, comfortable, well kempt, frail appearing and well hydrated NUTRITIONAL APPEARANCE: thin and underweight ORIENTATION/CONSCIOUSNESS: Yes awake, Yes oriented to person, Yes oriented to place and Yes oriented to time HENMT: COMMON NORMALS: normocephalic, Normal external nose present and moist oral mucous membranes HEAD & SCALP: normocephalic NOSE: Normal external nose present Eye: COMMON NORMALS: Equal, round and reactive pupils present and EOMs intact bilaterally GENERAL EYE: appearance normal, both eyes and all related structures PUPIL: Yes Equal, round and reactive pupils present Neck/C-Spine: COMMON NORMALS: full ROM and no lymphadenopathy GENERAL: Yes normal visual inspection and Yes trachea midline CERVICAL SPINE: Yes cervical ROM normal, Yes normal cervical lordosis, No pain with cervical ROM, No Cervical spine tenderness and No Paracervical muscle tenderness Lymph: LYMPHATIC: no lymphadenopathy noted Chest: COMMONS NORMALS: normal inspection of the chest and normal palpation of entire chest wall Resp: COMMON NORMALS: normal respiratory effort and clear to auscultation bilaterally AUSCULTATION: clear to auscultation bilaterally Cardio: COMMON NORMALS: regular rhythm, S1 normal heart sound present, S2 normal heart sound present and Peripheral pulses 2+ throughout RHYTHM: regular rhythm HEART SOUNDS: S1 normal heart sound present and S2 normal heart sound present PERIPHERAL PULSES: Peripheral pulses 2+ throughout GI: COMMON NORMALS: Soft to palpation and non-tender INSPECTION: Yes normal to inspection PALPATION: Yes Soft to palpation : COMMON NORMALS: Yes no CVA tenderness BLADDER/KIDNEY EXAM: Yes no CVA tenderness Back/Pelvis: COMMON NORMALS: no CVA tenderness, thoracic and lumbar spine no rmal to inspection and thoraco-lumbar ROM normal THORACIC SPINE/UPPER BACK: Yes normal to inspection and Yes thoracic ROM normal LUMBAR SPINE/LOWER BACK: Yes normal to inspection and Yes lumbar ROM normal Extremity: COMMON NORMALS: normal to inspection, capillary refill normal and no pedal edema GENERAL: Yes normal exam except as noted RIGHT UPPER EXTREMITY: Yes shoulder joint (pain posteriorly) Right shoulder: Yes Right shoulder joint inspection exam (winsome intact, surgical incision w/o drainage/erythema), Yes palpation, Yes Right shoulder joint ROM exam (limited secondary to pain) and Yes Right shoulder joint neurovascular exam (distally intact, right elbow with pain due to recent surgery, not worsened) LEFT UPPER EXTREMITY: Yes elbow joint Left elbow: Yes inspection (negative swelling), Yes palpation (pain with lateral palpation), Yes ROM (flexion and extension present, pain with pronation/supination) and Yes neurovascular exam (intact) and Yes wrist Left wrist: Yes inspection (negative swelling), Yes palpation (pain with dorsal palpation, negative navicular pain), Yes ROM (Limited secondary to pain) and Yes neurovascular exam (Distally intact) Neuro: COMMON NORMALS: patient oriented x3 and no focal motor deficits SENSORIUM/ORIENTATION: Yes alert, Yes oriented to person, Yes oriented to place and Yes oriented to time Psych: COMMON NORMALS: mental status grossly normal, Normal thought process present and cooperative APPEARANCE: Yes well kempt ACTIVITY/MOTOR BEHAVIOR: Yes appropriate eye contact THOUGHT PROCESS: Normal thought process present Skin: COMMON NORMALS: no rashes or lesions noted and turgor normal GENERAL SKIN EXAM: no rashes or lesions noted and turgor normal Course Consultations: Consultation #1: Dr Samson - discussed withDr Samson of new fracture appreciatd today, new distal radial fracture - no new orders - patient has follow up tomorrow Time: 16:15 Vital Signs: Vital signs: Vital Signs Temperature 98.4 F 12/06/19 14:10 Pulse Rate 98 12/06/19 14:10 Respiratory Rate 18 12/06/19 14:15 Blood Pressure 127/78 12/06/19 14:10 Pulse Oximetry 100 12/06/19 14:10 MDM - Extremity (Nontraumatic) Imaging Data^: Xray Ortho: Radiologist's impression: [address] [address] XRay Report Signed Patient: Janene Gallegos Unit #: [id number] : 1950 Age/Sex: 69 / F ADM Date: 12/06/19 Loc: ER Room/Bed: Attending Dr: Ordering Provider/Ordering MD: Yue Starkey Date of Service: 12/06/19 Procedure(s): XR shoulder RT min 2V* 77325 Accession Number(s): [id number] Report Number: [id number] WS: [id number] XR shoulder RT min 2V* 15942 REASON FOR EXAM: fall, pain s/p surgery FINDINGS: Previous lateral plate and screw fixation of comminuted fracture of the surgical neck. It does not appear that there has been alteration of the postoperative alignment of the fracture fragments and the plate and screw fixation. No new fracture identified. XR/XR shoulder RT min 2V* [id number] IMPRESSION: The recently plated humeral neck fracture appears to be in the same alignment as the postoperative image. Dictated By: August Willard Jr, MD Signed By: August Willard Jr, MD Signed Date/Time: 12/06/19 1544 DD/ 1536 Other Imaging: Radiologist's impression: [address] [address] XRay Report Signed Patient: Janene Gallegos Unit #: [id number] : 1950 Age/Sex: 69 / F ADM Date: 12/06/19 Loc: ER Room/Bed: Attending Dr: Ordering Provider/Ordering MD: Yue Starkey Date of Service: 12/06/19 Procedure(s): XR shoulder RT min 2V* [id number] Accession Number(s): [id number] Report Number: [id number] WS: [id number] XR shoulder RT min 2V* [id number] REASON FOR EXAM: fall, pain s/p surgery FINDINGS: Previous lateral plate and screw fixation of comminuted fracture of the surgical neck. It does not appear that there has been alteration of the postoperative alignment of the fracture fragments and the plate and screw fixation. No new fracture identified. XR/XR shoulder RT min 2V* [id number] IMPRESSION: The recently plated humeral neck fracture appears to be in the same alignment as the postoperative image. Dictated By: August Willard Jr, MD Signed By: August Willard Jr, MD Signed Date/Time: 12/06/19 1544 DD/ 153 Discharge Plan Discharge Patient Disposition: Home Clinical Impression: Fall Qualifiers: Encounter type: initial encounter Qualified Code(s): W19.XXXA - Unspecified fall, initial encounter Distal radial fracture Qualifiers: Encounter type: initial encounter Fracture type: closed Fracture morphology: unspecified fracture morphology Laterality: left Qualified Code(s): S52.502A - Unspecified fracture of the lower end of left radius, initial encounter for closed fracture Right shoulder pain Qualifiers: Chronicity: acute Qualified Code(s): M25.511 - Pain in right shoulder Condition: Stable Prescriptions: No Action Aspir-81 81 mg tablet,delayed release (DR/EC) 81 mg PO DAILY Qty: 90 RF: 2 promethazine 25 mg tablet 25 mg PO QID PRN (Reason: Nausea) Qty: 30 RF: 0 (DME) Quad Cane See Rx Instructions .Route .MEDSUPPLY Qty: 1 RF: 0 melatonin 3 mg Tablet 3 mg PO BEDTIME PRN (Reason: Sleep) RF: 0 gabapentin 300 mg capsule 300 mg PO BID RF: 0 tramadol 50 mg Tablet 50 - 100 mg PO Q6H PRN (Reason: Pain) RF: 0 hydroxyzine pamoate 25 mg Capsule 25 mg PO TID PRN (Reason: Anxiety) RF: 0 potassium chloride 20 mEq Tablet Extended Release 40 meq PO BID RF: 0 magnesium oxide 400 mg (241.3 mg magnesium) Tablet 400 mg PO BID Qty: 20 RF: 0 hydrocodone-acetaminophen 5-325 mg Tablet 1 - 2 tab PO Q6H PRN (Reason: Breakthrough Pain) Qty: 40 RF: 0 Probiotic 3 billion cell Capsule 3,000 mmu cells PO DAILY Qty: 0 RF: 0 Discharge Orders: Discharge Order (Routine); Ordered 12/06/19 Ordered By: Yue Starkey Referrals: Veda Gilman MD [Primary Care Provider] - Discharge Diet: Usual diet Discharge Activity: Limit activity as instructed Patient Instructions: Arm Fracture in Adults (ED), Splint Care (ED), Fall Prevention (ED) Activity Restrictions/Additional Instructions: Continue current pain medications as prescribed at home Continue follow-up with orthopedic surgeon tomorrow as scheduled, orthopedic clinic has been contacted with new findings of left distal radial fracture Return to the emergency department if you develop worsening symptoms such as fever, arm swelling pain, numbness tingling Loosen the splint if the splint becomes too tight Wear arm sling to the left upper extremity Discharge Date/Time: 12/06/19 17:04 Coding Level of Care Code ED 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
--- NOTE | 2019-12-06 14:34 | XR_ITS ---
WS: [id number] XR shoulder RT min 2V* [id number] REASON FOR EXAM: fall, pain s/p surgery FINDINGS: Previous lateral plate and screw fixation of comminuted fracture of the surgical neck. It does not appear that there has been alteration of the postoperative alignment of the fracture frag ments and the plate and screw fixation. No new fracture identified. XR/XR shoulder RT min 2V* [id number] IMPRESSION: The recently plated humeral neck fracture appears to be in the same alignment a s the postoperative image.
[2019-12-06] MEDS: HYDROcodone-acetaminophen 5-325 mg Tablet 1 TAB PO (15:16)
[2019-12-06] MEDS: promethazine 25 mg Tablet PO (15:17)
== END 2019-12-06 17:04 | disposition home or self-care (01) ==
PROVIDERS: Emergency Provider Nurse Practitioner Family; PCP Family Medicine
DX: S52.502A Unspecified fracture of the lower end of left radius, initial encounter for closed fracture (principal); Z79.82 Long term (current) use of aspirin; I48.91 Unspecified atrial fibrillation; N18.30 Chronic kidney disease, stage 3 unspecified; I25.2 Old myocardial infarction; I50.20 Unspecified systolic (congestive) heart failure; W01.0XXA Fall on same level from slipping, tripping and stumbling without subsequent striking against object, initial encounter
CPT/HCPCS: 12345; 29125; 73030; 73080; 73110; 99281; 99283; Q0169

== ENCOUNTER → 2019-12-20 10:51 | Outpatient (BNVA) | payer MEDICARE, SELFPAY | PROVIDERS: Family Provider Orthopaedic Surgery; PCP Family Medicine; Visit Provider Orthopaedic Surgery | DX: S42.201A Unspecified fracture of upper end of right humerus, initial encounter for closed fracture (principal); X58.XXXA Exposure to other specified factors, initial encounter; Z11.59 Encounter for screening for other viral diseases; Z98.890 Other specified postprocedural states | CPT/HCPCS: 73060; 73110; 87635 ==

== ENCOUNTER 2019-12-22 12:26 | Day surgery (SDC) | payer MEDICARE, SELFPAY ==
[2019-12-21 15:58] VITALS: BMI 12.4
--- NOTE | 2019-12-22 | SCC_ITS ---
Procedure Done: Open reduction and internal fixation left distal radius 37 seconds of fluoroscopic guidance, for a cumulative dose of 0.49 mGy, was provided to Dr. Arevalo by the radiology department. C-arm images of the LEFT wrist were saved for the patient's permanent record. MON[facility]FI[facility] ROCHELLE HOSPITALBerenice
[2019-12-22 12:50] VITALS: BP 122/64; PULSE 96; RESP 18; TEMP 37.1; O2SAT 95
[2019-12-22] MEDS: sodium chloride 0.9% 1,000 ML 30 ML IV (13:04)
--- NOTE | 2019-12-22 13:30 | W.PM.OPSUD ---
Surgery/Procedure H&P Update DATE OF PROCEDURE: December 22, 2019 DATE H&P PERFORMED: 12/20/19 PREOP DIAGNOSIS: Distal radius fracture, left PLANNED PROCEDURE: Operation Date: 12/22/19 14:10 Proposed Procedures p ORIF left distal radius Wrist [id number] S52.502A(Left) - Aubrey Arevalo MD
--- NOTE | 2019-12-22 13:35 | ANES.PREANE2 ---
Pre-Anesthetic Assessment Pre-Anesthetic Assessment: Height/Weight: Height 1.57 m Weight 30.844 kg Temp Pulse Resp BP Pulse Ox 98.7 F 96 18 122/64 95 12/22/19 12:50 12/22/19 12:50 12/22/19 12:50 12/22/19 12:50 12/22/19 12:50 Preop Diagnosis: Distal radius fracture, left Proposed Procedure: Operation Date: 12/22/19 14:10 Proposed Procedures p ORIF left distal radius Wrist 96499 S52.502A(Left) - Aubrey Arevalo MD Familial anesthetic complications: Hypotension after previous anesthesia, responded to albumin Was Beta Hali taken within 24 hours: N/A Last intake: Intake Last Liquid Date 12/21/19 Last Liquid Time 20:00 Last Solid Date 12/21/19 Last Solid Time 20:00 Social: Social History: No alcohol and No tobacco Exam: Pre-Anes Outpt Exam: alert, oriented x 3, clear to auscultation bilaterally and regular rate & rhythm Airway: Cervical ROM: WNL MP: 1 Dentition: False CV/HEM: CV/HEM: Afib, Anemia, CHF and SC Comments: echo 11/23 - EF 55%, grade I diastolic dysfunction : : Chronic renal Insufficiency GI: Comments: crohn's disease Metabolic: Comments: chronic hypokalemia w/ hyperadolsteronism Anesthetic Plan: ASA status: 4 Anesthesia: MAC and Regional (specify below) Risk of > 500 ml blood loss (7ml/kg in children): No Meds/Allergies Current Medications: Current Medications Generic Name Dose Route Start Last Admin Trade Name Freq PRN Reason Stop Dose Admin Sodium Chloride 1,000 mls @ 30 ml s/hr 12/22/19 12:45 12/22/19 13:04 Sodium Chloride 0.9% IV 12/23/19 12:44 30 mls/hr .Q24H SERENITY Administration PFSH Anesthesia PFSH: Medical History Atrial fibrillation Chronic anemia Chronic kidney disease, stage III (moderate) Crohn's disease Hyperaldosteronism Hypersomnia Hypokalemia Hypomagnesemia Local infection due to Port-A-Cath Myocardial infarction (lateral wall) Severe protein-calorie malnutrition Systolic congestive heart failure Surgical History H/O ileostomy H/O total colectomy History of delivery x4 Hx of appendectomy Port-A-Cath in place (10/12/19) right IJ Family History Other CAD (coronary artery disease) Cancer Congestive heart failure Diabetes Hyperlipidemia Social History Smoking and tobacco status: never smoked Second hand smoke exposure: No Alcohol intake: never Lives independently: Yes Household members: spouse Marital status: Current occupational status: retired History of recent travel: No Current gender identity: Female Data Anesthesia Cardiac Studies: No Data to Display
--- NOTE | 2019-12-22 13:39 | ANES.PROC ---
Anesthesia Procedures Procedure/Date: 12/22/19 Nerve Block ^: Nerve Block 1: Main Anesthesia: general anesthesia Time Out Performed: Yes Consent: requested by attending/covering physician, from patient, from other, risks and benefits reviewed and patient agrees to proceed Nerve block location: axillary (L) Anesthesia monitors applied: pulse oximetry, EKG, BP cuff and oxygen Nerve block position: semi sitting Anesthetic Used: ropivicaine 0.5% and with decadron (4 mg) Amount of anesthesia used (mL): 20 Ultrasound used to: recognize landmarks Nerve Stimulator Used?: No Interscalene/Femoral BLK: 2 stimuplex 22 g needle used for position and inplane approach, visualize local anesthetic spread and no vascular puncture identified Injection: neg aspiration of heme Patient Tolerated Procedure: well Complications: none
[2019-12-22] MEDS: clindamycin 600 MG/50 ML PREMIX 100 MG IV (17:30)
--- NOTE | 2019-12-22 18:29 | P.OP_ITS ---
Operative Report Date of procedure: December 22, 2019 Pre-op Diagnosis: Distal radius fracture, left Post-op diagnosis: same Post-op Findings: Same Procedure Done: Open reduction and internal fixation left distal radius Implants: [place]arc[employer] Variax short narrow left distal radius plate Pathology: none sent Surgeon: Aubrey Arevalo Anesthesia: Nerve Block (Axillary nerve block) Estimated blood loss (mL): 20 Tourniquet time (min): 26 Findings: The patient had an extra-articular fracture of the left distal radius with comminution and resulting shortening and loss of radial inclination Condition: stable Disposition: same day Procedure: Initial attempts were made at closed reduction however a satisfactory stable reduction could not be obtained. A decision was made to proceed with open reduction internal fixation.A 5 cm long incision was made along over the flexor carpi radialis tendon. Dissection was carried down through the tendon sheath. Dissection was carried down bluntly to the pronator quadratus. The pronator quadratus was elevated off of the distal radius leaving a cuff for later repair. Closed reduction was accomplished of the distal radius. A [place] Variax short narrow plate was applied. It was fixed distally with 5 locking screws and proximally with 3 bicortical screws. Intraoperative imaging showed excellent position of the hardware. The wound was irrigated with saline. The pronator quadratus was reapproximated with 2-0 Vicryl. Subcutaneous tissue s were closed with 2-0 Vicryl. The skin was closed with skin winsome. Sterile dressings were applied. The patient was taken to outpatient surgery in stable condition.
[2019-12-22 18:35] VITALS: BP 93/63; PULSE 85; RESP 16; TEMP 36.8; O2SAT 98
--- NOTE | 2019-12-22 18:38 | PC.NURSE ---
While patient was scooting to [facility] her portacath needle was pulled out due to tension on iv line. noted a small scratch from needle. 4x4 and paper tape applied to the site.
--- NOTE | 2019-12-22 19:13 | XR_ITS ---
WS: [id number] Left wrist, 2 views C-arm fluoroscopy, 12/22/2019 Clinical Data: ORIF LEFT DISTAL RADIUS Comparison: Left wrist, 12/20/2019. Findings: A ventral plate is attached to the distal left radius with multiple orthopedic screws reducing the di stal radial fracture. XR/XR wrist LT 2V [id number] Impression: Internal fixation of distal left radial fracture.
[2019-12-22 19:30] VITALS: BP 109/62; PULSE 83; RESP 18; O2SAT 95
--- NOTE | 2019-12-22 19:40 | ANE.PACU2 ---
Inpatient post-anesthesia follow up: Airway intact: Yes Vital signs: Temperature 98.2 F Pulse Rate 88 Respiratory Rate 16 Blood Pressure 104/58 Pulse Oximetry 97 Oxygen Delivery Me thod Room Air Oxygen Flow Rate Fraction of Inspir ed Oxygen Hydration adequate: Yes Nausea and vomiting: No Pain level: 2 Mental status: Baseline
[2019-12-22 20:03] VITALS: BP 104/58; PULSE 88; RESP 16; O2SAT 97
== END 2019-12-22 19:45 | disposition home or self-care (01) ==
PROVIDERS: PCP Family Medicine; Visit Provider Orthopaedic Surgery
PROC: (CPT 25607; principal; 2019-12-22 14:10)
DX: S52.552A Other extraarticular fracture of lower end of left radius, initial encounter for closed fracture (principal); W19.XXXA Unspecified fall, initial encounter; I48.91 Unspecified atrial fibrillation; I50.9 Heart failure, unspecified; I25.2 Old myocardial infarction; K50.90 Crohn's disease, unspecified, without complications; N18.30 Chronic kidney disease, stage 3 unspecified; Z79.82 Long term (current) use of aspirin
CPT/HCPCS: 25607; 12345; 73100; 76000; C1713; J1100; J2370; J2704; J2795; J3010; J3490; J7030; T1015-U1

== ENCOUNTER 2019-12-29 12:09 | Observation (INO) | payer MEDICARE, SELFPAY ==
[2019-12-29 12:18] VITALS: BP 138/74; PULSE 85; RESP 18; TEMP 36.4; O2SAT 98; BMI 12.8
--- NOTE | 2019-12-29 12:37 | ECG_ITS ---
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1950 Requested By: Eusebio Gee Order Number: [id number] Reading MD: LUIS DUFFY Measurements Intervals [place] Rate: 88 P: 54 HI: 128 QRS: 59 QRSD: 95 T: 79 QT: 306 QTc: 371 Interpretive Statements SINUS RHYTHM INDETERMINATE AXIS INCOMPLETE RIGHT BUNDLE BRANCH BLOCK [90+ ms QRS DURATION, TERMINAL R IN V1/V2, 40+ ms S IN I/aVL/V4/V5/V6] NONSPECIFIC T-WAVE ABNORMALITY Compared to ECG 11/23/2019 13:53:38 Incomplete right bundle-branch block now present T-wave abnormality now present Atrial abnormality no longer present Electronically Signed On 12-29-2019 21:04:06 CDT by LUIS DUFFY [email or web address]/store/[id number] f
--- NOTE | 2019-12-29 12:37 | XR_ITS ---
WS: [id number] Exam: XR chest 1V portable [id number] Date/Time of Exam: 12/29/2019 12:37 PM Reason For Exam: dyspnea/cough Comparison 11/23/2019. There is right perihilar infiltrate suspicious for pneumonia. The left lung is clear. The lungs are b ilaterally hyperinflated. Normal cardiomediastinal structures and bony elements. A right subclavian p ort ends at the cavoatrial junction. There is a plate and screw fixation involving a fracture of the surgical neck of the humerus. This may be a nonunion fracture. XR/XR chest 1V portable [id number] IMPRESSION: 1. Right perihilar infiltrate suspicious for pneumonia. 2. Pulmonary hyperinflation probably indicating COPD.
--- NOTE | 2019-12-29 13:21 | ED_ITS ---
HPI - Weakness General: Chief complaint: Weakness Stated complaint: dehydrated Time Seen by Provider: 12/29/19 12:33 History of Present Illness: HPI Narrative: 69-year-old female presents emergency room complaining of not feeling well weakness frequent falls. Patient previously was on hospice she recently retracted from that and has been living at home. She has a pretty significant sacral ulcer that is undermining and tunneling she has been seen at the wound clinic for. She had Covid earlier this year she also and some falls had proximal humerus fractures the right one was plated. She denies striking her head she denies loss consciousness. She comes in saying she has what she calls undiagnosed postural hypotension , she also blames these falls on hypokalemia and hypomagnesemia stating she is to get routine infusions of those but has not recently. MD Complaint: generalized weakness and difficulty walking Onset (ago): day(s) Duration: constant Location: generalized Migration: none Severity: moderate Relieving factors: none Exacerbating factors: none Associated symptoms: Reports decreased appetite, myalgias and nausea; Denies chest pain, chills, confusion, melena, diaphoresis, dysuria, easy bruising, fever(s), headache(s), rash, short of breath, syncope or vomiting Review of Systems Const: Denies: fever(s), chills or diaphoresis ENMT: Denies: throat pain, ear or mastoid pain, nasal discharge or nasal congestion Card: Denies: chest pain or syncope Resp: Denies: dyspnea, productive cough or non-productive cough GI: Reports: nausea; Denies: vomiting or melena : Denies: dysuria Skin/Breast: Denies: rash or pruritus Neuro: Denies: headache(s) or confusion Frankie/Lymph: Denies: easy bruising [facility] PFSH: Medical History (Updated 01/03/20 @ 09:07 by Eusebio Crandall DO) Atrial fibrillation not chronic Chronic anemia Chronic kidney disease, stage III (moderate) COVID-19 (~10/2019) Crohn's disease s/p total colectomy with ileostomy Hyperaldosteronism Hypersomnia Hypokalemia chronically on IV infusions of potassium and magnesium Hypomagnesemia chronic Local infection due to Port-A-Cath Myocardial infarction (lateral wall) Osteoporosis Severe protein-calorie malnutrition Short gut syndrome Stage III pressure ulcer Systolic congestive heart failure Vitamin B2 deficiency Surgical History (Updated 12/30/19 @ 19:26 by Karin Kumar MD) H/O ileostomy (~2002) H/O total colectomy (~2002) History of arthrodesis (08/03/18) right index finger History of delivery x4 History of hernia repair History of right hip replacement (~08/2019) Hx of appendectomy Port-A-Cath in place (10/12/19) right IJ Status post open reduction and internal fixation (ORIF) of fracture (12/22/19) left radius, Irina Status post open reduction and internal fixation (ORIF) of fracture (11/2019) right humerus, Irina Family History Other CAD (coronary artery disease) Cancer Congestive heart failure Diabetes Hyperlipidemia Social History Smoking and tobacco status: never smoked Second hand smoke exposure: No Alcohol intake: never Lives independently: Yes Household members: spouse Marital status: Current occupational status: retired History of recent travel: No Current gender identity: Female Physical Exam Const: COMMON NORMALS: no acute distress GENERAL APPEARANCE: cooperative and comfortable ORIENTATION/CONSCIOUSNESS: Yes awake, Yes oriented to person, Yes oriented to place and Yes oriented to time HENMT: COMMON NORMALS: normocephalic, atraumatic and hearing grossly normal bilaterally HEAD & SCALP: normocephalic and atraumatic Neck/C-Spine: COMMON NORMALS: no JVD Lymph: LYMPHATIC: no lymphadenopathy noted and no lymphedema noted Resp: COMMON NORMALS: normal respiratory effort, No retractions, No use of accessory muscles and clear to auscultation bilaterally AUSCULTATION: clear to auscultation bilaterally Cardio: COMMON NORMALS: no JVD, regular rate, regular rhythm and No murmurs present (Cardio) RATE: regular rate RHYTHM: regular rhythm GI: COMMON NORMALS: Soft to palpation and No hepatosplenomegaly present AUSCULTATION: Yes normoactive bowel sounds PALPATION: Yes Soft to palpation, No Tenderness to palpation present (GI), No Guarding due to palpation present (GI) and Yes No hepatosplenomegaly present Extremity: COMMON NORMALS: normal to inspection, capillary refill normal, no clubbing, cyanosis or edema, no calf tenderness and no pedal edema Neuro: SENSORIUM/ORIENTATION: Yes oriented to person, Yes oriented to place and Yes oriented to time Skin: COMMON NORMALS: no rashes or lesions noted NARRATIVE SKIN EXAM: Full- thickness sacral ulcer with undermining exposure of subcutaneous tissue. Localized erythema does not appear to be draining at this time there is a mucousy eschar in place GENERAL SKIN EXAM: no rashes or lesions noted Course Vital Signs: Vital signs: Vital Signs Temperature 98.5 F 12/30/19 14:23 Pulse Rate 90 12/30/19 14:23 Respiratory Rate 18 12/30/19 14:23 Blood Pressure 96/55 12/30/19 14:23 Pulse Oximetry 93 12/30/19 14:23 MDM - Weakness MDM Narrative: Medical decision making narrative: She has pretty profound hypokalemia. We will go ahead and admit discussed with Dr. Ge placed on observation orders written Lab Data: Labs: Lab Results 12/29/19 12/29/19 12/29/19 Range/Units 13:25 13:25 13:25 WBC 7.3 (4.0-10.0) 10^3/ uL RBC 3.69 L (4.1-5.3) 10^6/u L Hgb 10.9 L (11.5-15.3) g/dL Hct 35.9 L (37.0-47.0) % MCV 97.3 (81-99) fL MCH 29.5 (28.0-34.0) pg MCHC 30.4 (30.0-36.0) g/dL RDW 14.2 (12.1-15.1) % Plt Count 311 (130-400) 10^3/c mm MPV 10.3 (7.4-10.4) fL Neut % (Auto) 69.7 % Lymph % (Auto) 17.8 % Letcher % (Auto) 9.4 % Eos % (Auto) 2.3 % Baso % (Auto) 0.5 % Neut # (Auto) 5.10 (1.8-7.7) 10^3/u L Lymph # (Auto) 1.3 (0.8-4.8) 10^3/u L Letcher # (Auto) 0.7 (0.2-0.9) 10^3/u L Eos # (Auto) 0.2 (0.0-0.8) 10^3/u L Baso # (Auto) 0.0 (0.0-0.1) 10^3/u L Nucleated RBC % (a uto) 0 % Nucleated RBCs # 0.0 /100WBC Sodium 134 L (136-145) mmol/L Potassium 1.9 L* (3.5-5.1) mmol/L Chloride 71 L (98-107) mmol/L Carbon Dioxide 50 H* (22-29) mmol/L Anion Gap 14.9 (5-19) BUN 42 H (8-23) mg/dL Creatinine 2.6 H (0.5-0.9) mg/dL GFR Calculation 18.2 L (90-130) mL/min Glucose 77 (65-115) mg/dL Calculated Osmolal ity 287 (285-295) mOsm/k g Calcium 9.7 (8.5-10.5) mg/dL Magnesium 2.1 (1.7-2.3) mg/dL Troponin T Baselin e 33 H (0-10) ng/L Urine Color (Yellow) Urine Appearance (CLEAR) Urine pH (5-7) Ur Specific Gravit y (1.005-1.030) Urine Protein (Negative) Urine Glucose (UA) (Normal) Urine Ketones (Negative) Urine Blood (Negative) Urine Nitrate (Negative) Urine Bilirubin (Negative) Prot Sulfosalicyli c Acd (Negative) Urine Urobilinogen (Negative) mg/dL Ur Leukocyte Margie ase (Negative) Serum Ketones Negative (Negative) 12/29/19 Range/Units 14:04 WBC (4.0-10.0) 10^3/ uL RBC (4.1-5.3) 10^6/u L Hgb (11.5-15.3) g/dL Hct (37.0-47.0) % MCV (81-99) fL MCH (28.0-34.0) pg MCHC (30.0-36.0) g/dL RDW (12.1-15.1) % Plt Count (130-400) 10^3/c mm MPV (7.4-10.4) fL Neut % (Auto) % Lymph % (Auto) % Letcher % (Auto) % Eos % (Auto) % Baso % (Auto) % Neut # (Auto) (1.8-7.7) 10^3/u L Lymph # (Auto) (0.8-4.8) 10^3/u L Letcher # (Auto) (0.2-0.9) 10^3/u L Eos # (Auto) (0.0-0.8) 10^3/u L Baso # (Auto) (0.0-0.1) 10^3/u L Nucleated RBC % (a uto) % Nucleated RBCs # /100WBC Sodium (136-145) mmol/L Potassium (3.5-5.1) mmol/L Chloride (98-107) mmol/L Carbon Dioxide (22-29) mmol/L Anion Gap (5-19) BUN (8-23) mg/dL Creatinine (0.5-0.9) mg/dL GFR Calculation (90-130) mL/min Glucose (65-115) mg/dL Calculated Osmolal ity (285-295) mOsm/k g Calcium (8.5-10.5) mg/dL Magnesium (1.7-2.3) mg/dL Troponin T Baselin e (0-10) ng/L Urine Color Yellow (Yellow) Urine Appearance Clear (CLEAR) Urine pH 9 H (5-7) Ur Specific Gravit y 1.015 (1.005-1.030) Urine Protein Neg (Negative) Urine Glucose (UA) Norm (Normal) Urine Ketones Negative (Negative) Urine Blood Neg (Negative) Urine Nitrate Negative (Negative) Urine Bilirubin Neg (Negative) Prot Sulfosalicyli c Acd Trace (Negative) Urine Urobilinogen Neg (Negative) mg/dL Ur Leukocyte Margie ase Negative (Negative) Serum Ketones (Negative) Discharge Plan Discharge Patient Disposition: Admitted As Inpatient Admit Provider: Mango Ge Clinical Impression: Hypokalemia, Hypomagnesemia, Chronic kidney disease, stage III (moderate), Severe protein-calorie malnutrition, Stage III pressure ulcer, Fracture of humerus, proximal, right, closed, Systolic congestive heart failure, Chronic anemia Condition: Stable Referrals: [facility] [Outside] OUTPATIENT SURGERY, [Staff Physician] - 01/04/20 10:00 am (You are on the schedule to come in on January 03 at 10:00am for your outpatient potassium infusion. ) Aubrey Arevalo MD [Physician] - 01/04/20 10:30 am (already scheduled) Veda Gilman MD [Primary Care Provider] - 01/09/20 10:20 am Patient Instructions: Aspirin (By mouth), Hypokalemia, Wound Care (General) Interventions: ED Discharge Assessment Last Done: 12/29/19 15:58 ED Charges Last Done: 12/29/19 15:58 Discharge Date/Time: 12/29/19 16:05 Coding Level of Care Code ED Ordering Machine Operator for Chg Fwd Exam Comprehensive
[2019-12-29 13:28] VITALS: BP 110/47; PULSE 86; RESP 22; O2SAT 91
[2019-12-29 13:34] LABS: Basophils % 0.5 %; Eosinophils # 0.2 10^3/uL (0.0-0.8); Eosinophils % 2.3 %; Hematocrit 35.9 % (37.0-47.0); Hemoglobin 10.9 g/dL (11.5-15.3); Lymphocytes # 1.3 10^3/uL (0.8-4.8); Lymphocytes % 17.8 %; Mean Corpuscular HGB Conc 30.4 g/dL (30.0-36.0); Mean Corpuscular Hemoglobin 29.5 pg (28.0-34.0); Mean Corpuscular Volume 97.3 fL (81-99); Mean Platelet Volume 10.3 fL (7.4-10.4); Monocytes # 0.7 10^3/uL (0.2-0.9); Monocytes % 9.4 %; Neutrophils % 69.7 %; Nucleated Red Blood Cells % 0 %; Platelet Count 311 10^3/cmm (130-400); Red Blood Count 3.69 10^6/uL (4.1-5.3); Red Cell Distribution Width 14.2 % (12.1-15.1); White Blood Count 7.3 10^3/uL (4.0-10.0)
--- NOTE | 2019-12-29 13:35 | PC.NURSE ---
IV infusion therapy JAEL Prince stated she set up infusion therapy for patient to resume
[2019-12-29 13:48] LABS: Ketone (Acetest) Serum Negative (Negative)
[2019-12-29 13:57] LABS: Blood Urea Nitrogen 42 mg/dL (8-23); Calcium 9.7 mg/dL (8.5-10.5); Chloride 71 mmol/L (98-107); Glomerular Filtration Rate 18.2 mL/min (90-130); Glucose 77 mg/dL (65-115); Magnesium 2.1 mg/dL (1.7-2.3); Osmolality Calculated 287 mOsm/kg (285-295); Sodium 134 mmol/L (136-145)
[2019-12-29 13:58] LABS: Troponin(5th) Baseline 33 ng/L (0-10)
[2019-12-29 14:02] LABS: Anion Gap 14.9 (5-19)
[2019-12-29 14:14] LABS: Carbon Dioxide 50 mmol/L (22-29); Potassium 1.9 mmol/L (3.5-5.1)
[2019-12-29 14:16] LABS: Add Urine Microscopic? NO; Urine Appearance Clear (CLEAR); Urine Color Yellow (Yellow); pH Urine 9 (5-7)
[2019-12-29 14:17] LABS: Bilirubin Urine Neg (Negative); Blood Urine Neg (Negative); Glucose Urine UA Norm (Normal); Ketones Urine Negative (Negative); Leukocyte Esterase Urine Negative (Negative); Nitrate Urine Negative (Negative); Protein Urine Neg (Negative); Specific Gravity, Urine 1.015 (1.005-1.030); Sulfosalicylic Acid Urine Trace (Negative); Urobilinogen Urine Neg (Negative)
--- NOTE | 2019-12-29 14:37 | ECG_ITS ---
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1950 Requested By: Eusebio Gee Order Number: [id number] Reading MD: LUIS DUFFY Measurements Intervals [place] Rate: 93 P: 75 NE: 147 QRS: 62 QRSD: 88 T: 78 QT: 366 QTc: 456 Interpretive Statements SINUS RHYTHM NONSPECIFIC T-WAVE ABNORMALITY Compared to ECG 12/29/2019 13:19:18 Indeterminate axis no longer present Incomplete right bundle-branch block no longer present T-wave abnormality still present Electronically Signed On 12-29-2019 21:05:45 CDT by LUIS DUFFY [email or web address] [id number]
[2019-12-29] MEDS: potassium chloride oral liq 20 mEq/15 mL UDC 40 MEQ PO (14:39)
[2019-12-29] MEDS: lidocaine 1% 5 ML in potassium chloride premix 100 ML 25 ML IV (14:41)
[2019-12-29] MEDS: levofloxacin-dextrose 5 % 500 MG/100 ML PREMIX 100 MG IV (14:43)
[2019-12-29 15:58] VITALS: BP 94/54; PULSE 93; RESP 19; O2SAT 97
[2019-12-29] MEDS: morphine 4 mg/mL SDV 1 mL 2 MG IVP (16:32)
--- NOTE | 2019-12-29 17:03 | PM.HP ---
Providers/Chief Complaint Admitting Physician: Mango Ge MD Primary Care Provider: Veda Gilman MD Chief Complaint: dehydrated History of Present Illness Janene Gallegos is a 69 year old female presenting to the emergency department with weakness. She was found to have a significantly low potassium. She had been told she had very low blood pressure by visiting nurse. She has had no fever. She reports she had Covid in September, and recovered from this without incident. She has had some falls, and sustained a fracture to her left radius which required surgery December 21. She has a history of significantly low potassium and magnesium and it previously got scheduled infusions of this, but has not since she had a port placed recently. Etiology of her hypokalemia and hypomagnesemia is ulcerative colitis with subsequent surgery and short gut syndrome. She has history of a chronic decubitus of her sacrum. Review of Systems General: Reports: 10 or more systems reviewed and unremarkable except in HPI and below Const: Reports: fatigue; Denies: fever(s) Eyes: Denies: change in vision ENMT: Denies: throat pain Card: Denies: chest pain Resp: Denies: dyspnea GI: Denies: abdominal pain : Denies: flank pain Musc: Denies: neck pain Skin/Breast: Denies: rash Neuro: Denies: headache(s) Psych: Denies: anxiety Endo: Reports: tired all the time Frankie/Lymph: Denies: easy bruising All/Imm: Denies: urticaria Medications/Allergies Home Medications Medication Instructions Recorded Confirmed Last Taken Type melatonin 3 mg PO BEDTIME PRN 03/01/19 12/29/19 12/21/19 History Probiotic 3,000 mmu cells PO DAILY #0 05/02/19 12/29/19 12/28/19 History aspirin 81 mg tablet,delayed 81 mg PO DAILY #90 tab 05/10/19 12/29/19 12/29/19 Rx release promethazine 25 mg tablet 25 mg PO QID PRN #30 tab 10/14/19 12/29/19 12/28/19 Rx gabapentin 300 mg PO BID 11/23/19 12/29/19 12/28/19 History hydroxyzine pamoate 25 mg PO TID PRN 11/23/19 12/29/19 12/21/19 History potassium chloride 40 meq PO BID 0912/29/19 12/27/19 History t-2 magnesium oxide 400 mg PO BID #20 tab 11/27/19 12/29/19 12/21/19 Rx Quad Cane #1 ea 11/28/19 12/29/19 Unknown Rx Fast Form cock up splint #1 each 12/07/19 12/29/19 Unknown Rx hydrocodone-acetaminophen [[place]] 1 tab PO Q4H #30 tab 12/22/19 12/29/19 Unknown Rx Allergies Allergy/AdvReac Type Severity Reaction Status Date / Time amoxicillin Allergy ALGY-Hives Verified 12/29/19 08:56 cefazolin [From Ancef] Allergy ALGY-Rash Verified 12/29/19 08:56 cephalexin [From Keflex] Allergy ALGY-Rash Verified 12/29/19 08:56 codeine Allergy ALGY-Hives Verified 12/29/19 08:56 doxycycline Allergy ALGY-Hives Verified 12/29/19 08:56 erythromycin base Allergy ALGY-Hives Verified 12/29/19 08:56 [From E.E.S.] latex Allergy Unknown Verified 12/29/19 08:56 metoclopramide Allergy Unknown Verified 12/29/19 08:56 neomycin Allergy ALGY-Hives Verified 12/29/19 08:56 Penicillins Allergy ALGY-Hives Verified 12/29/19 08:56 polyethylene glycol Allergy ADR-Swelling Verified 12/29/19 08:56 of the Eye pregabalin [From Lyrica] Allergy ALGY-Swell Verified 12/29/19 08:56 Lip/Tongue/Throat prochlorperazine Allergy ALGY-Hives Verified 12/29/19 08:56 [From Compazine] propoxyphene [From Darvon] Allergy ALGY-Hives Verified 12/29/19 08:56 sapropterin Allergy ADR-Swelling Verified 12/29/19 08:56 [From Tetrahydrobiopterin of the Eye Di-HCL] scopolamine Allergy ALGY-Hives Verified 12/29/19 08:56 Sulfa (Sulfonamide Allergy ALGY-Hives Verified 12/29/19 08:56 Antibiotics) tegaserod [From Zelnorm] Allergy ALGY-Hives Verified 12/29/19 08:56 tetracycline Allergy ALGY-Hives Verified 12/29/19 08:56 tetrahydrozoline Allergy ADR-Swelling Verified 12/29/19 08:56 [From Visine] of the Eye PFSH Acute PFSH: Medical History Atrial fibrillation Chronic anemia Chronic kidney disease, stage III (moderate) Crohn's disease Hyperaldosteronism Hypersomnia Hypokalemia Hypomagnesemia Local infection due to Port-A-Cath Myocardial infarction (lateral wall) Severe protein-calorie malnutrition Systolic congestive heart failure Surgical History H/O ileostomy H/O total colectomy History of delivery x4 Hx of appendectomy Port-A-Cath in place (10/12/19) right IJ Family History Other CAD (coronary artery disease) Cancer Congestive heart failure Diabetes Hyperlipidemia Social History Smoking and tobacco status: never smoked Second hand smoke exposure: No Alcohol intake: never Lives independently: Yes Household members: spouse Marital status: Current occupational status: retired History of recent travel: No Current gender identity: Female Vitals/I&O/Wt Last Vital Signs Temp 97.6 F 12/29/19 12:18 Pulse 93 12/29/19 15:58 Resp 19 H 12/29/19 15:58 BP 94/54 12/29/19 15:58 Pulse Ox 97 12/29/19 15:58 Weight last 48 hrs Weight 31.751 kg Physical Exam Narrative: EXAM NARRATIVE: General exam is a white female, in no apparent distress, conversive HEENT: Pupils equally round. Oropharynx clear. Neck is supple no lymphadenopathy or thyromegaly Cardiovascular regular rate and rhythm, no murmur Lungs clear no wheezing or crackles Back demonstrates right sacral decub stage III/IV with tunneling with fibrin but no active exudate or odor. Abdomen is soft. Ostomy noted with stool. Ostomy is pink. Positive bowel sounds. Extremities no cyanosis clubbing or edema. Small stage II decubitus but it appears to be healing left ankle with no evidence of infection. Data : 12/29/19 13:25 12/29/19 13:25 Other data: Chest x-ray question right perihilar infiltrate EKG demonstrates sinus rhythm, normal axis, widened T wave. No evidence of ST elevation. A&P Assessment and plan (1) Hypokalemia: Observation significant and severe hypokalemia associated with weakness. She has been given 40 mEq of IV potassium in the ER She has been given 40 mill equivalents p.o. IV fluids have been initiated for dehydration with 20 mEq of potassium per liter as well. Another 40 mEq p.o. in approximately 6 to 8 hours Magnesium level has been checked and normal Recheck electrolytes in the morning Status: Acute (2) Acute renal failure: Rehydrate Interestingly bicarbonate is significantly elevated on BMP. Recheck in the morning. She has history of significant metabolic alkalosis according to previous BMPs. Status: Acute (3) Chronic anemia: Secondary to chronic disease. Overall improved. Status: Acute (4) Stage III pressure ulcer: Continue dressing changes Overall appears improved from the last time I visualized this. No evidence of infection Status: Acute (5) Severe protein-calorie malnutrition: Encourage p.o. Status: Acute Additional A&P Information Chest x-ray with question of pneumonia. She has no cough, fever, elevated white blood cell count, dyspnea or hypoxia. History of ulcerative colitis, with short gut syndrome Chronic pain. Continue home medications Multiple other medical problems as listed in her past medical history. Observation patient, low risk for DVT currently secondary to the status Allow natural . Discussed with patient. Attestations Medical Necessity Statement*: Will need less than 2 midnight stay for supplementation of potassium for correction of severe hypokalemia, and close monitoring of renal function. Coding Level of Care Code Acute Mounter Br[employer] for g Fwd Diagnoses Hypokalemia E87.6 Acute renal failure N17.9 Chronic anemia D64.9 Stage III pressure ulcer L89.93 Severe protein-calorie malnutrition E43
[2019-12-29 17:19] VITALS: BP 81/43; PULSE 87; RESP 17; TEMP 36.8; O2SAT 94
[2019-12-29 17:20] LABS: Troponin 5 2HR 29.69 ng/L (0-10)
[2019-12-29 17:23] LABS: Troponin 5 2HR Delta -3.31 ABS# (0-10)
[2019-12-29] MEDS: gabapentin 300 mg Capsule PO (18:26)
[2019-12-29] MEDS: D5-NS 0.45% + KCL 20 mEq 20 MEQ/1,000 ML BAG 100 MEQ IV (18:27)
[2019-12-29] MEDS: magnesium oxide 400 mg tablet PO (18:27)
--- NOTE | 2019-12-29 18:37 | ECG_ITS ---
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
[2019-12-29 18:38] VITALS: BP 94/57
--- NOTE | 2019-12-29 19:16 | PC.NURSE ---
SHIFT SUMMARY PT IS ALERT, AWAKE, AND ORIENTED, PT IS FEELING VERY WEAK, AND IN LOTS OF PAIN IN RIGHT SHOULDER AND LEFT ARM AND SACRUM. MORPHINE WAS GIVEN WHEN ARRIVED ON FLOOR AND PT STATED IT ONLY WORKED FOR A SHORT PERIOD OF TIME. MADY GERMAIN NOTIFIED AND WILL BE GIVING PAIN MEDICATIONS.
[2019-12-29 20:00] VITALS: BP 89/49; PULSE 90; RESP 19; TEMP 37.3; O2SAT 94
[2019-12-29 20:00] LABS: Troponin 5 6HR 27.01 ng/L (0-10)
[2019-12-29 20:11] LABS: Troponin 5 6HR Delta -5.99 ng/L (0-12)
[2019-12-29] MEDS: potassium chloride ER 10 mEq Tablet 40 MEQ PO (22:30)
[2019-12-30] VITALS: BP 105/60; PULSE 88; RESP 19; TEMP 36.9; O2SAT 96
[2019-12-30 04:00] VITALS: PULSE 86; RESP 19; TEMP 37.1
[2019-12-30] MEDS: D5-NS 0.45% + KCL 20 mEq 20 MEQ/1,000 ML BAG 100 MEQ IV (04:29)
[2019-12-30] MEDS: HYDROcodone-acetaminophen 7.5-325 mg Tablet 1 TAB PO ×2 (04:29→08:41)
[2019-12-30 05:36] LABS: Basophils % 0.6 %; Eosinophils # 0.4 10^3/uL (0.0-0.8); Eosinophils % 5.3 %; Hematocrit 28.2 % (37.0-47.0); Hemoglobin 8.5 g/dL (11.5-15.3); Lymphocytes # 1.5 10^3/uL (0.8-4.8); Lymphocytes % 21.9 %; Mean Corpuscular HGB Conc 30.1 g/dL (30.0-36.0); Mean Corpuscular Hemoglobin 29.5 pg (28.0-34.0); Mean Corpuscular Volume 97.9 fL (81-99); Mean Platelet Volume 10.8 fL (7.4-10.4); Monocytes # 0.8 10^3/uL (0.2-0.9); Monocytes % 11.6 %; Neutrophils % 60.3 %; Nucleated Red Blood Cells % 0 %; Platelet Count 273 10^3/cmm (130-400); Red Blood Count 2.88 10^6/uL (4.1-5.3); Red Cell Distribution Width 14.3 % (12.1-15.1); White Blood Count 6.8 10^3/uL (4.0-10.0)
[2019-12-30 06:14] LABS: Magnesium 1.9 mg/dL (1.7-2.3)
[2019-12-30 06:27] LABS: Anion Gap 10.7 (5-19); Blood Urea Nitrogen 33 mg/dL (8-23); Calcium 9.3 mg/dL (8.5-10.5); Chloride 87 mmol/L (98-107); Glomerular Filtration Rate 22.1 mL/min (90-130); Glucose 97 mg/dL (65-115); Osmolality Calculated 289 mOsm/kg (285-295); Potassium 3.7 mmol/L (3.5-5.1); Sodium 136 mmol/L (136-145)
[2019-12-30 06:33] LABS: Carbon Dioxide 42 mmol/L (22-29)
[2019-12-30 07:44] VITALS: BP 106/55; PULSE 87; RESP 18; TEMP 37.1; O2SAT 96
[2019-12-30] MEDS: potassium chloride ER 10 mEq Tablet 40 MEQ PO (08:40)
[2019-12-30] MEDS: aspirin 81 mg EC Tablet PO (08:41)
[2019-12-30] MEDS: magnesium oxide 400 mg tablet PO (08:41)
[2019-12-30] MEDS: gabapentin 300 mg Capsule PO (08:41)
[2019-12-30] MEDS: promethazine 25 mg Tablet PO (08:47)
[2019-12-30 11:14] VITALS: BP 96/55; PULSE 90; RESP 18; TEMP 36.9; O2SAT 93
[2019-12-30 11:24] LABS: Anion Gap 11.4 (5-19); Blood Urea Nitrogen 29 mg/dL (8-23); Calcium 9.7 mg/dL (8.5-10.5); Chloride 87 mmol/L (98-107); Creatinine Clr Calc Pharmacy 12.4946; Glomerular Filtration Rate 23.3 mL/min (90-130); Glucose 99 mg/dL (65-115); Osmolality Calculated 286 mOsm/kg (285-295); Potassium 4.4 mmol/L (3.5-5.1); Sodium 135 mmol/L (136-145)
[2019-12-30 11:44] LABS: Carbon Dioxide 41 mmol/L (22-29)
--- NOTE | 2019-12-30 11:47 | PC.CHAP ---
Pastoral Care Encounter/Spiritual Assessment Type of Contact [] Declined wrapping clerk visit [] Patient/Family/Request visit [] Outpatient visit [] Follow-up visit [] Physician referral [] Code/Alert [xx] Routine visit [] Staff referral [] Actively dying [] Patient sleeping [] Family support [] [] Out of room [] Palliative care [] [] Receiving care in room [] Pre-surgical visit [] Trauma [] Long length of stay [] ICU visit [] Other: Relational/Emotional Strength [xx] Patient feels connected with others/family/visitors/staff [] Distress [] Loneliness/isolation [] Abandonment Spirituality of Patient [xx] Person of Winter [xx] Attends Rastafari of their Winter [xx] Believes in Prayer [xx] Reads Bible or Restorationist materials [] There are Spiritual issues to be addressed Net Software Architect Interventions [xx] Prayer [xx] Active listening [xx] Non-anxious presence [] Spiritual/emotional support [] Crisis/trauma care [] Spiritual counseling [] Bereavement support [] Provided bereavement packet [] Provided Bible/devotional materials [] Provided toy/stuffed animal, coloring book to patient or family member [] Provided Communion [] Anointing/Kimberly [] Salvation [xx] Completed spiritual assessment [] Other: Impact on Illness or Injury [] Angry [] Fearful [] Anxious [] Often cries [] Exhaustion [] Unable to work [] Unable to attend yarsanism [] Unable to walk/stand [] Unable to read [] Unable to drive [] Unable to eat/drink [] Unable to sleep [] Unable to be with family [] Patient intubated [xx] Other: Recently but doing ok emotionally and spiritually. Summary Elderly patient expects to be discharged around noon to stay with her daughter. 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 She knows part of my family and we talked about them a bit. She has strong winter in [place] and puts her trust in Him. Time spent with patient 15 minutes Net Software Architect Ileana De La Garza
--- NOTE | 2019-12-30 12:17 | PM.DCS ---
Discharge Providers Date of Admission: 12/29/19 14:41 Date of Discharge: December 30, 2019 Attending Provider at Admission: Mango Ge MD Attending Provider at Discharge: Mango Ge MD Primary Care Provider: Veda Gilman MD Diagnoses at Discharge Discharge Diagnosis (1) Hypokalemia: Status: Acute Permanent problem details: chronically on IV infusions of potassium and magnesium (2) Acute renal failure: Status: Inactive Qualifiers: Acute renal failure type: with acute tubular necrosis Qualified Code(s): N17.0 - Acute kidney failure with tubular necrosis (3) Chronic anemia: Status: Chronic (4) Stage III pressure ulcer: Status: Chronic Qualifiers: Pressure injury location: sacral region Qualified Code(s): L89.153 - Pressure ulcer of sacral region, stage 3 (5) Crohn's disease: Status: Chronic Permanent problem details: s/p total colectomy with ileostomy Qualifiers: Digestive disease complication type: unspecified complication Gastrointestinal tract location: unspecified location Qualified Code(s): K50.919 - Crohn's disease, unspecified, with unspecified complications (6) Severe protein-calorie malnutrition: Status: Chronic (7) BMI less than 19,adult: Status: Chronic Other Information Additional DC diagnoses/information: Decubiti were present on admission Reason for Visit Reason for Visit: dehydrated Hospital Course Hospital Course: Mrs. Rivera presented with weakness and was found to have significant hypokalemia. She has short gut syndrome from prior total colectomy due to Crohn's disease. She usually gets infusions of potassium weekly but with change in primary care provider and recent surgery she had missed a week. She received IV potassium as well as oral potassium replacement while here. Her potassium going from 1.9 up to 4.4 with this. Patient was eager to be discharged home. She did have some acute renal failure with initial BUN and creatinine of 42/2.6. With hydration laboratory studies showed BUN and creatinine at 29/2.1 prior to discharge. Turned to her baseline which looks to probably be around 1. She varies quite a bit with values this year ranging from 0.8-2.6. No new management for her chronic sacral ulcer. Patient has had recent surgery to her forearm. It was in a splint which will remain. She has appointments with orthopedics next week and outpatient arrangements have been made to resume her potassium and magnesium infusions weekly. Physical Exam Narrative: EXAM NARRATIVE: Chronic ill appearance, thin, no acute distress. Alert and oriented. Lungs are clear. Regular rhythm. Abdomen soft mild ostomy pink and intact, with soft stool noted. Thin build, moves all extremities, stage III-IV sacral decubitus on the right with small stage II on the left ankle. Discharge Data Data Completed and Pending: Completed Studies During Hospitalization Category Date Time Status XR chest 1V awilda ble [id number] Stat Exams 12/29/19 12:37 Completed Addt'l Data from Hospital Stay: Laboratory Last Values WBC 6.8 10^3/uL (4.0- 10.0) 12/30/19 04:42 RBC 2.88 10^6/uL (4.1 -5.3) L 12/30/19 04:42 Hgb 8.5 g/dL (11.5-15 .3) L 12/30/19 04:42 Hct 28.2 % (37.0-47.0 ) L 12/30/19 04:42 MCV 97.9 fL (81-99) 12/30/19 04:42 MCH 29.5 pg (28.0-34. 0) 12/30/19 04:42 MCHC 30.1 g/dL (30.0-3 6.0) 12/30/19 04:42 RDW 14.3 % (12.1-15.1 ) 12/30/19 04:42 Plt Count 273 10^3/cmm (130 -400) 12/30/19 04:42 MPV 10.8 fL (7.4-10.4 ) H 12/30/19 04:42 Neut % (Auto) 60.3 % 12/30/19 04:42 Lymph % (Auto) 21.9 % 12/30/19 04:42 [place] % (Auto) 11.6 % 12/30/19 04:42 Eos % (Auto) 5.3 % 12/30/19 04:42 Baso % (Auto) 0.6 % 12/30/19 04:42 Neut # (Auto) 4.10 10^3/uL (1.8 -7.7) 12/30/19 04:42 Lymph # (Auto) 1.5 10^3/uL (0.8- 4.8) 12/30/19 04:42 [place] # (Auto) 0.8 10^3/uL (0.2- 0.9) 12/30/19 04:42 Eos # (Auto) 0.4 10^3/uL (0.0- 0.8) 12/30/19 04:42 Baso # (Auto) 0.0 10^3/uL (0.0- 0.1) 12/30/19 04:42 Nucleated RBC % (a uto) 0 % 12/30/19 04:42 Nucleated RBCs # 0.0 /100WBC 12/30/19 04:42 Sodium 135 mmol/L (136-1 45) L 12/30/19 10:52 Potassium 4.4 mmol/L (3.5-5 .1) 12/30/19 10:52 Chloride 87 mmol/L (98-107 ) L 12/30/19 10:52 Carbon Dioxide 41 mmol/L (22-29) H 12/30/19 10:52 Anion Gap 11.4 (5-19) 12/30/19 10:52 BUN 29 mg/dL (8-23) H 12/30/19 10:52 Creatinine 2.1 mg/dL (0.5-0. 9) H 12/30/19 10:52 GFR Calculation 23.3 mL/min (90-1 30) L 12/30/19 10:52 Glucose 99 mg/dL (65-115) 12/30/19 10:52 Calculated Osmolal ity 286 mOsm/kg (285- 295) 12/30/19 10:52 Calcium 9.7 mg/dL (8.5-10 .5) 12/30/19 10:52 Magnesium 1.9 mg/dL (1.7-2. 3) 12/30/19 04:42 Troponin T Baselin e 33 ng/L (0-10) H 12/29/19 13:25 Troponin T 120 Min marissa 29.69 ng/L (0-10) H 12/29/19 15:25 Delta Troponin T -3.31 ABS# (0-10) L 12/29/19 15:25 Troponin T Hi Sens 6Hr 27.01 ng/L (0-10) H 12/29/19 19:03 Troponin T Hi Sens 6Hr Delta -5.99 ng/L (0-12) L 12/29/19 19:03 Urine Color Yellow (Yellow) 12/29/19 14:04 Urine Appearance Clear (CLEAR) 12/29/19 14:04 Urine pH 9 (5-7) H 12/29/19 14:04 Ur Specific Gravit y 1.015 (1.005-1.0 30) 12/29/19 14:04 Urine Protein Neg (Negative) 12/29/19 14:04 Urine Glucose (UA) Norm (Normal) 12/29/19 14:04 Urine Ketones Negative (Negati ve) 12/29/19 14:04 Urine Blood Neg (Negative) 12/29/19 14:04 Urine Nitrate Negative (Negati ve) 12/29/19 14:04 Urine Bilirubin Neg (Negative) 12/29/19 14:04 Prot Sulfosalicyli c Acd Trace (Negative) 12/29/19 14:04 Urine Urobilinogen Neg mg/dL (Negati ve) 12/29/19 14:04 Ur Leukocyte Margie ase Negative (Negati ve) 12/29/19 14:04 Serum Ketones Negative (Negati ve) 12/29/19 13:25 Vitals: Last Vital Signs Temp 98.5 F 12/30/19 11:14 Pulse 90 12/30/19 11:14 Resp 18 12/30/19 11:14 BP 96/55 12/30/19 11:14 Pulse Ox 93 12/30/19 11:14 Discharge Plan Discharge Patient Disposition: Home Condition: Stable Prescriptions: New aspirin 81 mg Tablet,Delayed Release (Dr/Ec) 81 mg PO DAILY Qty: 0 RF: 0 Continued (DME) Fast Form cock up splint See Rx Instructions .ROUTE .MEDSUPPLY Qty: 1 RF: 0 promethazine 25 mg tablet 25 mg PO QID PRN (Reason: Nausea) Qty: 30 RF: 0 (DME) Quad Cane See Rx Instructions .Route .MEDSUPPLY Qty: 1 RF: 0 melatonin 3 mg Tablet 3 mg PO BEDTIME PRN (Reason: Sleep) RF: 0 gabapentin 300 mg capsule 300 mg PO BID RF: 0 hydroxyzine pamoate 25 mg Capsule 25 mg PO TID PRN (Reason: Anxiety) RF: 0 potassium chloride 20 mEq Tablet Extended Release 40 meq PO BID RF: 0 magnesium oxide 400 mg (241.3 mg magnesium) Tablet 400 mg PO BID Qty: 20 RF: 0 hydrocodone-acetaminophen [[place]] 7.5-325 mg tablet 1 tab PO Q4H Qty: 30 RF: 0 Probiotic 3 billion cell Capsule 3,000 mmu cells PO DAILY Qty: 0 RF: 0 Discontinued Aspir-81 81 mg tablet,delayed release (DR/EC) 81 mg PO DAILY Qty: 90 RF: 2 Discharge Orders: Discharge Order (Routine); Ordered 12/30/19 Ordered By: Karin Kumar Other Ambulatory Orders: Basic Metabolic Panel (Routine) Timeframe: 20200104 Facility: [facility] - Location: Lab - Main Lab Ordered By: Karin Kumar Magnesium (Routine) Timeframe: 20200104 Facility: [facility] - Location: Lab - Main Lab Ordered By: Karin Kumar Referrals: [facility] [Outside] OUTPATIENT SURGERY, [Staff Physician] - 01/04/20 10:00 am (You are on the schedule to come in on January 03 at 10:00am for your outpatient potassium infusion. ) Aubrey Arevalo MD [Physician] - 01/04/20 10:30 am (already scheduled) Veda Gilman MD [Primary Care Provider] - 01/09/20 10:20 am Discharge Diet: Usual diet Discharge Activity: Resume usual activity Patient Instructions: Aspirin (By mouth), Hypokalemia, Wound Care (General) Discharge Date/Time: 12/30/19 14:25 Discharge Attestations Time Spent in Discharge Care*: greater than 30 min Quality Metrics Clinical Quality Measures During this hospital stay, did patient experience: None Coding Level of Care Code Acute Senior C Software Developer for Chg Fwd Diagnoses Hypokalemia E87.6 Acute renal failure N17.0 Acute renal failure type: with acute tubular necrosis Chronic anemia D64.9 Stage III pressure ulcer L89.153 Pressure injury location: sacral region Crohn's disease K50.919 Digestive disease complication type: unspecified complication Gastrointestinal tract location: unspecified location Severe protein-calorie malnutrition E43 BMI less than 19,adult Z68.1
[2019-12-30 14:23] VITALS: BP 96/55; PULSE 90; RESP 18; TEMP 36.9; O2SAT 93
== END 2019-12-30 14:25 | disposition home or self-care (01) ==
LOC: ER 14:58 → MEDSURG 15:39
PROVIDERS: Hospitalist; Admitting Provider Internal Medicine; Emergency Provider Family Medicine; PCP Family Medicine; Visit Provider Internal Medicine
DX: E87.6 Hypokalemia (principal); N17.9 Acute kidney failure, unspecified; D64.9 Anemia, unspecified; L89.93 Pressure ulcer of unspecified site, stage 3; E43 Unspecified severe protein-calorie malnutrition; E83.42 Hypomagnesemia; N17.0 Acute kidney failure with tubular necrosis; L89.153 Pressure ulcer of sacral region, stage 3; K50.919 Crohn's disease, unspecified, with unspecified complications; Z68.1 Body mass index [BMI] 19.9 or less, adult; Z79.82 Long term (current) use of aspirin; I48.91 Unspecified atrial fibrillation; N18.30 Chronic kidney disease, stage 3 unspecified; I25.2 Old myocardial infarction; I50.20 Unspecified systolic (congestive) heart failure
CPT/HCPCS: 12345; 36415; 71045; 80048; 81003; 82009; 83735; 84484; 85025; 93005; 96361; 96365; 96366; 96375; 99283; 99285; G0378; J1956; J2270; J3480; Q0169

== ENCOUNTER → 2020-01-04 10:05 | Day surgery (SDC) | payer MEDICARE, SELFPAY ==
[2020-01-04 10:59] VITALS: BMI 12.8
[2020-01-04 11:04] VITALS: BP 86/44; PULSE 98; RESP 18; TEMP 37.2; O2SAT 100
[2020-01-04 11:04] LABS: Basophils % 0.4 %; Eosinophils # 0.2 10^3/uL (0.0-0.8); Eosinophils % 3.2 %; Hemoglobin 8.7 g/dL (11.5-15.3); Lymphocytes # 1.3 10^3/uL (0.8-4.8); Lymphocytes % 17.3 %; Mean Corpuscular HGB Conc 31.1 g/dL (30.0-36.0); Mean Corpuscular Hemoglobin 29.5 pg (28.0-34.0); Mean Corpuscular Volume 94.9 fL (81-99); Mean Platelet Volume 10.5 fL (7.4-10.4); Monocytes # 0.9 10^3/uL (0.2-0.9); Monocytes % 11.5 %; Neutrophils # 5.01 10^3/uL (1.8-7.7); Neutrophils % 67.3 %; Nucleated Red Blood Cells % 0 %; Platelet Count 296 10^3/cmm (130-400); Red Blood Count 2.95 10^6/uL (4.1-5.3); Red Cell Distribution Width 14.5 % (12.1-15.1); White Blood Count 7.5 10^3/uL (4.0-10.0)
[2020-01-04 11:22] LABS: Albumin Level 3.5 g/dL (3.5-5.2); Blood Urea Nitrogen 36 mg/dL (8-23); Chloride 76 mmol/L (98-107); Glucose 101 mg/dL (65-115); Phosphorus 3.9 mg/dL (2.5-4.5); Sodium 135 mmol/L (136-145)
[2020-01-04 11:32] LABS: Anion Gap 11.3 (5-19)
[2020-01-04 11:33] LABS: Carbon Dioxide > 50 mmol/L (22-29); Potassium 2.3 mmol/L (3.5-5.1)
[2020-01-04] MEDS: potassium chloride premix 100 ML 37.5 MEQ IV (11:36)
[2020-01-04 13:20] LABS: Urine Creatinine 52 mg/dL (28-217); Urine Protein Random 18 mg/dL
[2020-01-04 13:31] LABS: UPRO/UCREAT Ratio 0.35 mg/mg CR
[2020-01-04 13:32] LABS: Parathyroid Hormone 348.6 pg/mL (15-65)
[2020-01-04 14:08] LABS: 25 Hydroxy Vitamin D 13 ng/mL (30-100)
== END ==
PROVIDERS: Internal Medicine Nephrology; PCP Family Medicine; Visit Provider Family Medicine
DX: E87.6 Hypokalemia (principal)
CPT/HCPCS: 36591; 80069; 82306; 82310; 82570; 83735; 83970; 84156; 85025; 96365; 96366; J3480

== ENCOUNTER 2020-01-06 14:40 | Outpatient (CLI) | payer MEDICARE, SELFPAY | END 2020-01-06 14:41 | disposition home or self-care (01) | LOC: WOUND 14:42 | PROVIDERS: PCP Family Medicine; Visit Provider Nurse Practitioner Family | DX: L89.154 Pressure ulcer of sacral region, stage 4 (principal) | CPT/HCPCS: 11042 ==

== ENCOUNTER 2020-01-07 20:00 | Observation (INO) | payer MEDICARE, SELFPAY ==
[2020-01-07 20:14] VITALS: BP 91/56; PULSE 94; RESP 18; TEMP 36.7; O2SAT 96; BMI 12.4
--- NOTE | 2020-01-07 20:30 | XRR_ITS ---
PROCEDURE INFORMATION: Exam: XR Chest, 1 View Exam date and time: 01/07/2020 8:32 PM Age: 69 years old Clinical indication: Shortness of breath; Additional info: Weakness TECHNIQUE: Imaging protocol: XR of the chest Views: 1 view. COMPARISON: CR XR chest 1V portable [id number] 12/29/2019 12:52 PM FINDINGS: Tubes, catheters and devices: Right-sided infusion port is unchanged. Lungs: The lungs are hyperinflated, consistent with COPD. Increased interstitial lung markings are noted bilaterally. No consolidative pulmonary infiltrate noted. Pleural space: No pleural effusion. No pneumothorax. Heart/Mediastinum: Calcified mediastinal lymph nodes. Vasculature: The thoracic aorta is mildly atherosclerotic. Bones/joints: Status post ORIF of the right proximal humerus. The fracture line remains visible. XR/XR chest 1V portable [id number] IMPRESSION: 1. The lungs are hyperinflated, consistent with COPD. 2. Increased interstitial lung markings are noted bilaterally. No consolidative pulmonary infiltrate noted. 3. There is no significant change from the prior examination.
--- NOTE | 2020-01-07 20:31 | ECG_ITS ---
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 Measurements Intervals [place] Rate: 82 P: 76 ID: 140 QRS: 72 QRSD: 88 T: 77 QT: 429 QTc: 501 Interpretive Statements SINUS RHYTHM WITH FREQUENT VENTRICULAR PREMATURE COMPLEXES WITH OCCASIONAL SUPRAVENTRICULAR PREMATURE COMPLEXES POSSIBLE LEFT ATRIAL ENLARGEMENT [-0.1mV P WAVE IN V1/V2] INDETERMINATE AXIS Compared to ECG 12/29/2019 18:30:39 Indeterminate axis now present Electronically Signed On 01-08-2020 9:21:57 DEVELOPMENT GEOLOGIST by Sara Arango M.D. [id number]
--- NOTE | 2020-01-07 21:28 | ED_ITS ---
HPI - Weakness General: Chief complaint: Weakness Stated complaint: low bp/ weak/unsteady Time Seen by Provider: 01/07/20 20:25 History of Present Illness: HPI Narrative: 69-year-old female presenting with generalized weakness and frequent falls. She was in the hospital last week for similar complaint. She is fallen a couple of times, hurting her left shoulder, and left rib cage. She is not been overly short of breath she denies any fever. She states that she has had problems with low potassium and low magnesium in the past. She also has a sacral decubitus ulcer followed by wound care. She has a history of Crohn's chronically, has an ostomy, and has short gut syndrome Complaint: generalized weakness and difficulty walking Onset (ago): week(s) Duration: intermittent Location: generalized Migration: none Severity: similar to previous episodes Quality: other Relieving factors: none Exacerbating factors: none Context: recent illness Associated symptoms: Reports confusion; Denies chest pain, dysuria, fever(s), nausea or vomiting Review of Systems Const: Denies: fever(s) Eyes: Denies: change in vision or blurry vision ENMT: Denies: odynophagia, swelling of lips/tongue or sinus pain Card: Denies: chest pain Resp: Denies: dyspnea, productive cough, non-productive cough or wheezing GI: Denies: nausea or vomiting : Denies: dysuria Musc: Reports: back pain; Denies: neck pain Skin/Breast: Reports: rash; Denies: pruritus or erythema Neuro: Reports: confusion Psych: Denies: anxiety PFS ED PFSH: Medical History (Updated 01/07/20 @ 23:43 by Jose Anguiano DO) Atrial fibrillation not chronic Chronic anemia Chronic kidney disease, stage III (moderate) COVID-19 (~10/2019) Crohn's disease s/p total colectomy with ileostomy Hyperaldosteronism Hypersomnia Hypokalemia chronically on IV infusions of potassium and magnesium Hypomagnesemia chronic Local infection due to Port-A-Cath Myocardial infarction (lateral wall) Osteoporosis Severe protein-calorie malnutrition Short gut syndrome Stage III pressure ulcer Systolic congestive heart failure Vitamin B2 deficiency Surgical History (Updated 12/30/19 @ 19:26 by Karin Kumar MD) H/O ileostomy (~2002) H/O total colectomy (~2002) History of arthrodesis (08/03/18) right index finger History of delivery x4 History of hernia repair History of right hip replacement (~08/2019) Hx of appendectomy Port-A-Cath in place (10/12/19) right IJ Status post open reduction and internal fixation (ORIF) of fracture (12/22/19) left radius, Irina Status post open reduction and internal fixation (ORIF) of fracture (11/2019) right humerus, Irina Family History Other CAD (coronary artery disease) Cancer Congestive heart failure Diabetes Hyperlipidemia Social History Smoking and tobacco status: never smoked Second hand smoke exposure: No Alcohol intake: never Lives independently: Yes Household members: spouse Marital status: Current occupational status: retired History of recent travel: No Current gender identity: Female Physical Exam Const: GENERAL APPEARANCE: cooperative, frail appearing, appears older than stated age and other (Cachectic) ORIENTATION/CONSCIOUSNESS: Yes oriented to person, Yes oriented to place and Yes oriented to time HENMT: COMMON NORMALS: normocephalic, external ears normal and Normal external nose present HEAD & SCALP: normocephalic FACE & SINUS: normal facial exam NOSE: Normal external nose present and No nasal discharge present EXTERNAL EAR: Yes external ears normal Eye: COMMON NORMALS: Equal, round and reactive pupils present, EOMs intact bilaterally and conjunctivae normal EYELID: eyelids normal CONJUNCTIVA: Yes conjunctivae normal PUPIL: Yes Equal, round and reactive pupils present Neck/C-Spine: GENERAL: No tracheal deviation Chest: COMMONS NORMALS: normal inspection of the chest CHEST: Yes tenderness (Left lower rib tenderness. No deformity) Resp: COMMON NORMALS: clear to auscultation bilaterally EFFORT & INSPECTION: No tachypneic, No respiratory distress, No retractions, No uses accessory muscles and No tracheal deviation AUSCULTATION: clear to auscultation bilaterally, no rhonchi, no wheezes and lung sounds not diminished Cardio: COMMON NORMALS: regular rate and regular rhythm RATE: regular rate RHYTHM: regular rhythm HEART SOUNDS: no murmurs PERIPHERAL PULSES: radial pulses present GI: INSPECTION: No abdominal distension AUSCULTATION: No Hyperactive bowel sounds present and No Hypoactive bowel sounds present PALPATION: No Guarding due to palpation present (GI) and No Rigid due to palpation PERCUSSION: no dullness to percussion and no tympanic to percussion Neuro: SENSORIUM/ORIENTATION: Yes oriented to person, Yes oriented to place and Yes oriented to time Psych: COMMON NORMALS: mental status grossly normal Skin: COMMON NORMALS: no rashes or lesions noted GENERAL SKIN EXAM: no rashes or lesions noted Course Vital Signs: Vital signs: Vital Signs Temperature 98.0 F 01/07/20 20:14 Pulse Rate 92 01/07/20 23:16 Respiratory Rate 19 H 01/07/20 23:16 Blood Pressure 114/50 01/07/20 23:16 Pulse Oximetry 90 01/07/20 23:19 MDM - Weakness MDM Narrative: Medical decision making narrative: 69-year-old with a history of renal failure, hypokalemia, and short gut syndrome. She has had more frequent falls. She was in last week for similar complaints. Her potassium tonight is 2.1. Her creatinine is 3, which is a significant elevation for her. She also has significant hypochloremia, likely changes from short gut syndrome. She does have some EKG changes and that she is in trigeminy on the monitor currently, with a good blood pressure of 114/68. She will be observed. She has had 40 of oral liquid potassium, and is getting 40 of IV potassium as well. Lab Data: Labs: Lab Results 01/07/20 01/07/20 01/07/20 Range/Units 21:45 21:45 21:45 WBC 8.3 (4.0-10.0) 10^3/ uL RBC 3.10 L (4.1-5.3) 10^6/u L Hgb 9.1 L (11.5-15.3) g/dL Hct 29.3 L (37.0-47.0) % MCV 94.5 (81-99) fL MCH 29.4 (28.0-34.0) pg MCHC 31.1 (30.0-36.0) g/dL RDW 14.3 (12.1-15.1) % Plt Count 293 (130-400) 10^3/c mm MPV 10.3 (7.4-10.4) fL Neut % (Auto) 65.2 % Lymph % (Auto) 22.8 % [place] % (Auto) 9.5 % Eos % (Auto) 1.8 % Baso % (Auto) 0.5 % Neut # (Auto) 5.40 (1.8-7.7) 10^3/u L Lymph # (Auto) 1.9 (0.8-4.8) 10^3/u L [place] # (Auto) 0.8 (0.2-0.9) 10^3/u L Eos # (Auto) 0.2 (0.0-0.8) 10^3/u L Baso # (Auto) 0.0 (0.0-0.1) 10^3/u L Nucleated RBC % (a uto) 0 % Nucleated RBCs # 0.0 /100WBC Sodium 132 L (136-145) mmol/L Potassium 2.1 L* (3.5-5.1) mmol/L Chloride 70 L (98-107) mmol/L Carbon Dioxide 53 H* (22-29) mmol/L Anion Gap 11.1 (5-19) BUN 34 H (8-23) mg/dL Creatinine 3.0 H (0.5-0.9) mg/dL GFR Calculation 15.4 L (90-130) mL/min Glucose 100 (65-115) mg/dL Calculated Osmolal ity 282 L (285-295) mOsm/k g Lactate 2.9 H (0.5-2.2) mmol/L Calcium 9.5 (8.5-10.5) mg/dL Magnesium 2.2 (1.7-2.3) mg/dL Total Bilirubin 0.3 (0.15-1.2) mg/dL AST 31 (0-32) U/L ALT 19 (0-33) U/L Alkaline Phosphata se 152 H (35-105) IU/L C-Reactive Protein 3.6 (0.0-4.9) mg/L Total Protein 6.9 (6.6-8.7) g/dL Albumin 3.7 (3.5-5.2) g/dL Globulin 3.2 (1.3-4.6) g/dL Discharge Plan Discharge Patient Disposition: Placed in Observation Clinical Impression: Acute hypokalemia Acute renal failure Qualifiers: Acute renal failure type: unspecified Qualified Code(s): N17.9 - Acute kidney failure, unspecified Condition: Stable Referrals: Veda Gilman MD [Primary Care Provider] - Coding Level of Care Code ED 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
[2020-01-07] MEDS: sodium chloride 0.9% 1,000 ML 999 ML IV (21:49)
[2020-01-07 21:54] LABS: Basophils % 0.5 %; Eosinophils # 0.2 10^3/uL (0.0-0.8); Eosinophils % 1.8 %; Hematocrit 29.3 % (37.0-47.0); Hemoglobin 9.1 g/dL (11.5-15.3); Lymphocytes # 1.9 10^3/uL (0.8-4.8); Lymphocytes % 22.8 %; Mean Corpuscular HGB Conc 31.1 g/dL (30.0-36.0); Mean Corpuscular Hemoglobin 29.4 pg (28.0-34.0); Mean Corpuscular Volume 94.5 fL (81-99); Mean Platelet Volume 10.3 fL (7.4-10.4); Monocytes # 0.8 10^3/uL (0.2-0.9); Monocytes % 9.5 %; Neutrophils % 65.2 %; Nucleated Red Blood Cells % 0 %; Platelet Count 293 10^3/cmm (130-400); Red Cell Distribution Width 14.3 % (12.1-15.1); White Blood Count 8.3 10^3/uL (4.0-10.0)
[2020-01-07 22:11] LABS: Lactate (Lactic Acid level) 2.9 mmol/L (0.5-2.2)
[2020-01-07 22:14] LABS: Alanine Aminotransferase 19 U/L (0-33); Albumin Level 3.7 g/dL (3.5-5.2); Alkaline Phosphatase 152 IU/L (35-105); Aspartate Amino Transferase 31 U/L (0-32); Blood Urea Nitrogen 34 mg/dL (8-23); Calcium 9.5 mg/dL (8.5-10.5); Chloride 70 mmol/L (98-107); Globulin 3.2 g/dL (1.3-4.6); Glomerular Filtration Rate 15.4 mL/min (90-130); Glucose 100 mg/dL (65-115); Magnesium 2.2 mg/dL (1.7-2.3); Osmolality Calculated 282 mOsm/kg (285-295); Sodium 132 mmol/L (136-145); Total Bilirubin 0.3 mg/dL (0.15-1.2); Total Protein 6.9 g/dL (6.6-8.7)
[2020-01-07 22:16] VITALS: BP 87/57; PULSE 87; RESP 18; O2SAT 98
[2020-01-07 22:16] LABS: Potassium 2.1 mmol/L (3.5-5.1)
[2020-01-07 22:26] LABS: C Reactive Protein 3.6 mg/L (0.0-4.9)
[2020-01-07 22:48] LABS: Anion Gap 11.1 (5-19); Carbon Dioxide 53 mmol/L (22-29)
[2020-01-07] MEDS: potassium chloride premix 100 ML 25 MEQ IV (22:59)
[2020-01-07] MEDS: potassium chloride oral liq 20 mEq/15 mL UDC 40 MEQ PO (22:59)
[2020-01-07] MEDS: fentaNYL 50 mcg/mL INJ 2mL 25 MCG IVP (23:09)
[2020-01-07 23:16] VITALS: BP 114/50; PULSE 92; RESP 19; O2SAT 95
[2020-01-07 23:19] VITALS: O2SAT 90
[2020-01-08] VITALS (7 sets, daily range): BP systolic 96–117; BP diastolic 53–68; PULSE 53–98; RESP 15–18; TEMP 36.4–37.3; O2SAT 96–100
--- NOTE | 2020-01-08 00:22 | P.HP_ITS ---
Providers/Chief Complaint Primary Care Provider: Veda Gilman MD Chief Complaint: low bp/ weak/unsteady History of Present Illness Janene Gallegos is a 69 year old female with a past medical history of COVID-19, severe protein calorie malnutrition, chronic failure to thrive, has a port for electrolyte transfusions for chronic hypokalemia, hypomagnesemia, hyponatremia, anemia, has a past medical history of ulcerative colitis with colostomy and short gut syndrome, CKD stage III, CAD, sacral ulcer, recent history of open reduction internal fixation of acute right humeral neck fracture, recent history of open reduction internal fixation of left distal radial fracture, currently in a splint who presents to [facility] due to not feeling well, she states that she feels this way when she is chronically hypokalemic and hypomagnesemic. She recently had her port placed back in for her transfusions, it was removed late last year for bacteremia and port infection, she states that she has a new physician, and her physician does not know how much potassium she needs, so she only received 1 bag last Thursday, today she just has not been feeling well, fatigue, malaise so that is why she came to the emergency room, no fevers, no cough, no shortness of breath, no chest pain, no chest palpitations. Review of Systems Const: Reports: fatigue and malaise; Denies: fever(s) or chills Eyes: Denies: change in vision or blurry vision ENMT: Denies: nasal congestion Card: Denies: chest pain, palpitations or irregular heart rhythm Resp: Denies: dyspnea, productive cough, non-productive cough or wheezing GI: Denies: abdominal pain, nausea, vomiting, hematemesis, diarrhea, constipation, hematochezia or melena : Denies: flank pain, dysuria or urinary frequency Musc: Denies: neck pain or back pain Skin/Breast: Denies: rash Neuro: Denies: headache(s), dizziness or vertigo Psych: Denies: anxiety or depression Endo: Denies: polyuria or polydipsia Medications/Allergies Home Medications Medication Instructions Recorded Confirmed Last Taken Type melatonin 3 mg PO BEDTIME PRN 03/01/19 01/04/20 12/21/19 History Probiotic 3,000 mmu cells PO DAILY #0 05/02/19 01/04/20 12/28/19 History promethazine 25 mg tablet 25 mg PO QID PRN #30 tab 10/14/19 01/04/20 12/28/19 Rx gabapentin 300 mg PO BID 11/23/19 01/04/20 12/28/19 History hydroxyzine pamoate 25 mg PO TID PRN 11/23/19 01/04/20 12/21/19 History potassium chloride 40 meq PO BID 11/23/19 01/04/20 12/27/19 History t-2 magnesium oxide 400 mg PO BID #20 tab 11/27/19 01/04/20 12/21/19 Rx Quad Cane #1 ea 11/28/19 12/29/19 Unknown Rx Fast Form cock up splint #1 each 12/07/19 12/29/19 Unknown Rx hydrocodone-acetaminophen [[place]] 1 tab PO Q4H #30 tab 12/22/19 01/04/20 Unknown Rx aspirin 81 mg PO DAILY #0 tab 12/30/19 01/04/20 Unknown Rx Allergies Allergy/AdvReac Type Severity Reaction Status Date / Time amoxicillin Allergy ALGY-Hives Verified 01/07/20 20:22 cefazolin [From Ancef] Allergy ALGY-Rash Verified 01/07/20 20:22 cephalexin [From Keflex] Allergy ALGY-Rash Verified 01/07/20 20:22 codeine Allergy ALGY-Hives Verified 01/07/20 20:22 doxycycline Allergy ALGY-Hives Verified 01/07/20 20:22 erythromycin base Allergy ALGY-Hives Verified 01/07/20 20:22 [From E.E.S.] latex Allergy Unknown Verified 01/07/20 20:22 metoclopramide Allergy Unknown Verified 01/07/20 20:22 neomycin Allergy ALGY-Hives Verified 01/07/20 20:22 Penicillins Allergy ALGY-Hives Verified 01/07/20 20:22 polyethylene glycol Allergy ADR-Swelling Verified 01/07/20 20:22 of the Eye pregabalin [From Lyrica] Allergy ALGY-Swell Verified 01/07/20 20:22 Lip/Tongue/Throat prochlorperazine Allergy ALGY-Hives Verified 01/07/20 20:22 [From Compazine] propoxyphene [From Darvon] Allergy ALGY-Hives Verified 01/07/20 20:22 sapropterin Allergy ADR-Swelling Verified 01/07/20 20:22 [From Tetrahydrobiopterin of the Eye Di-HCL] scopolamine Allergy ALGY-Hives Verified 01/07/20 20:22 Sulfa (Sulfonamide Allergy ALGY-Hives Verified 01/07/20 20:22 Antibiotics) tegaserod [From Zelnorm] Allergy ALGY-Hives Verified 01/07/20 20:22 tetracycline Allergy ALGY-Hives Verified 01/07/20 20:22 tetrahydrozoline Allergy ADR-Swelling Verified 01/07/20 20:22 [From Visine] of the Eye PFSH Acute PFSH: Medical History Atrial fibrillation not chronic Chronic anemia Chronic kidney disease, stage III (moderate) COVID-19 (~10/2019) Crohn's disease s/p total colectomy with ileostomy Hyperaldosteronism Hypersomnia Hypokalemia chronically on IV infusions of potassium and magnesium Hypomagnesemia chronic Local infection due to Port-A-Cath Myocardial infarction (lateral wall) Osteoporosis Severe protein-calorie malnutrition Short gut syndrome Stage III pressure ulcer Systolic congestive heart failure Vitamin B2 deficiency Surgical History H/O ileostomy (~2002) H/O total colectomy (~2002) History of arthrodesis (08/03/18) right index finger History of delivery x4 History of hernia repair History of right hip replacement (~08/2019) Hx of appendectomy Port-A-Cath in place (10/12/19) right IJ Status post open reduction and internal fixation (ORIF) of fracture (12/22/19) left radius, Irina Status post open reduction and internal fixation (ORIF) of fracture (11/2019) right humerus, Irina Family History Other CAD (coronary artery disease) Cancer Congestive heart failure Diabetes Hyperlipidemia Social History Smoking and tobacco status: never smoked Second hand smoke exposure: No Alcohol intake: never Lives independently: Yes Household members: spouse Marital status: Current occupational status: retired History of recent travel: No Current gender identity: Female Vitals/I&O/Wt Last Vital Signs Temp 98.0 F 01/07/20 20:14 Pulse 92 01/07/20 23:16 Resp 19 H 01/07/20 23:16 BP 114/50 01/07/20 23:16 Pulse Ox 90 01/07/20 23:19 01/07/20 01/07/20 01/08/20 14:59 22:59 06:59 Intake Total 1000 / 1000 Balance 1000 / 1000 Weight last 48 hrs Weight 31.751 kg Physical Exam Const: COMMON NORMALS: no acute distress GENERAL APPEARANCE: cooperative and comfortable NUTRITIONAL APPEARANCE: thin and underweight ORIENTATION/CONSCIOUSNESS: Yes awake, Yes oriented to person and Yes oriented to place HENMT: COMMON NORMALS: normocephalic Eye: COMMON NORMALS: Equal, round and reactive pupils present and EOMs intact bilaterally Neck/C-Spine: COMMON NORMALS: full ROM and no lymphadenopathy Chest: COMMONS NORMALS: normal inspection of the chest OTHER: Port in place Resp: COMMON NORMALS: normal respiratory effort, No retractions, No use of accessory muscles and clear to auscultation bilaterally Cardio: COMMON NORMALS: no JVD, regular rate, regular rhythm, S1 normal heart sound present and S2 normal heart sound present GI: COMMON NORMALS: Normal to inspection, nondistended, normoactive bowel sounds present, Soft to palpation and non-tender Extremity: COMMON NORMALS: normal to inspection, full ROM and no pedal edema Neuro: COMMON NORMALS: patient oriented x3, CN's II-XII intact bilaterally and moves all extremities Data : 01/07/20 21:45 01/07/20 21:45 A&P Assessment and plan (1) Acute hypokalemia: -Potassium level 2.1 -Has some bigeminy, PVCs, no ST-T wave changes -Received 40 mEq of potassium IV and 40 p.o. -Recheck potassium levels in the morning -EKG monitoring, telemetry monitoring, monitor for chest pain, monitor for palpitations Status: Acute (2) Acute renal failure: -Creatinine 3, BUN 34 -Likely hypovolemic, post renal -We will do urine studies -Continue normal saline Status: Acute Qualifiers: Acute renal failure type: unspecified Qualified Code(s): N17.9 - Acute kidney failure, unspecified (3) BMI less than 19,adult: Status: Chronic (4) Hypomagnesemia: -Currently magnesium within normal limits, monitor levels Status: Acute (5) Stage III pressure ulcer: Continue repositioning, Status: Chronic (6) Severe protein-calorie malnutrition: Status: Chronic (7) Chronic anemia: At baseline at 9.1 Status: Chronic (8) Crohn's disease: Status: Chronic Qualifiers: Digestive disease complication type: unspecified complication Gastrointestinal tract location: unspecified location Qualified Code(s): K50. 919 - Crohn's disease, unspecified, with unspecified complications (9) Metabolic alkalosis: -Hypochloremic metabolic alkalosis likely secondary to dehydration, short gut syndrome, hypokalemia -Continue normal saline, monitor bicarb, chloride level Status: Acute (10) Hypochloremia: Chloride levels low at 70, likely secondary to alkalosis, GI losses Status: Acute (11) Hyponatremia: Likely hypovolemic hyponatremia, continue IV fluids Status: Acute Attestations Medical Necessity Statement*: Patient requires hospitalization, outpatient, with observation secondary to hypokalemia, hypochloremic metabolic alkalosis, hyponatremia Coding Level of Care Code Acute Automatic Mounter for g Fwd Diagnoses Acute hypokalemia E87.6 Acute renal failure N17.9 Acute renal failure type: unspecified BMI less than 19,adult Z68.1 Hypomagnesemia E83.42 Stage III pressure ulcer L89.93 Severe protein-calorie malnutrition E43 Chronic anemia D64.9 Crohn's disease K50.919 Digestive disease complication type: unspecified complication Gastrointestinal tract location: unspecified location Metabolic alkalosis E87.3 Hypochloremia E87.8 Hyponatremia E87.1
[2020-01-08] MEDS: enoxaparin 40 mg/0.4 mL Syringe SUBCUT (01:42)
[2020-01-08] MEDS: sodium chloride 0.9% 1,000 ML 100 ML IV ×2 (01:42→12:41)
[2020-01-08] MEDS: HYDROcodone-acetaminophen 7.5-325 mg Tablet 1 TAB PO ×3 (01:55→20:38)
[2020-01-08] MEDS: lidocaine 1% 5 ML in potassium chloride premix 100 ML 25 ML IV (04:00)
[2020-01-08 07:42] LABS: Alanine Aminotransferase 17 U/L (0-33); Albumin Level 2.9 g/dL (3.5-5.2); Alkaline Phosphatase 131 IU/L (35-105); Aspartate Amino Transferase 28 U/L (0-32); Blood Urea Nitrogen 31 mg/dL (8-23); Calcium 8.7 mg/dL (8.5-10.5); Chloride 90 mmol/L (98-107); Glucose 96 mg/dL (65-115); Osmolality Calculated 292 mOsm/kg (285-295); Phosphorus 3.5 mg/dL (2.5-4.5); Sodium 138 mmol/L (136-145); Total Bilirubin 0.2 mg/dL (0.15-1.2); Total Protein 5.9 g/dL (6.6-8.7)
[2020-01-08 08:04] LABS: Carbon Dioxide 42 mmol/L (22-29)
[2020-01-08 08:05] LABS: Anion Gap 10.3 (5-19); Potassium 4.3 mmol/L (3.5-5.1)
[2020-01-08] MEDS: aspirin 81 mg EC Tablet PO (08:23)
[2020-01-08] MEDS: gabapentin 300 mg Capsule PO ×2 (08:23→17:18)
[2020-01-08] MEDS: magnesium oxide 400 mg tablet PO ×2 (08:23→17:18)
[2020-01-08] MEDS: potassium chloride ER 20 mEq Tablet 40 MEQ PO ×2 (08:23→17:18)
--- NOTE | 2020-01-08 16:12 | P.PN_ITS ---
Subjective Subjective: Interval history: Overnight labs and H&P reviewed. Hypokalemia and hypomagnesemia repleted today, however patient does appear to be grossly dehydrated with dry skin and mucous membranes. She does complain of overall generalized weakness. Medications: Reviewed: Yes Vitals/I&O/Wt Last Vital Signs Temp 99.2 F 01/08/20 15:49 Pulse 98 01/08/20 15:49 Resp 15 01/08/20 15:49 BP 117/68 01/08/20 15:49 Pulse Ox 97 01/08/20 15:49 01/08/20 01/08/20 01/08/20 06:59 14:59 22:59 Intake Total 2200 / 2200 480 / 2680 Output Total 200 / 200 750 / 750 Balance -200 / 800 1450 / 1450 480 / 1930 Weight last 48 hrs Weight 31.751 kg Physical Exam Narrative: EXAM NARRATIVE: GEN: Awake, alert , chronically ill-appearing malnourished lady. Appears grossly dehydrated. 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 We will continue to monitor her in the hospital and continue IV fluids. Status: Acute (2) Acute renal failure: -Creatinine improving to 2.4 this morning -Likely hypovolemic, post renal Urine studies noted Status: Acute Qualifiers: Acute renal failure type: unspecified Qualified Code(s): N17.9 - Acute kidney failure, unspecified (3) BMI less than 19,adult: Status: Chronic (4) Hypomagnesemia: -Currently magnesium within normal limits, monitor levels Status: Acute (5) Stage III pressure ulcer: Continue repositioning, Status: Chronic (6) Severe protein-calorie malnutrition: Status: Chronic (7) Chronic anemia: At baseline at 9.1 Status: Chronic (8) Crohn's disease: Status: Chronic Qualifiers: Digestive disease complication type: unspecified complication Ga strointestinal tract location: unspecified location Qualified Code(s): K50.919 - Crohn's disease, unspecified, with unspecified complications (9) Metabolic alkalosis: -Hypochloremic metabolic alkalosis likely secondary to dehydration, short gut syndrome, hypokalemia -Continue normal saline, monitor bicarb, chloride level Status: Acute (10) Hypochloremia: Chloride levels low at 70, likely secondary to alkalosis, GI losses Status: Acute (11) Hyponatremia: Likely hypovolemic hyponatremia, continue IV fluids Status: Acute Attestations Medical Necessity Statement*: Continued observation for dehydration, need for IV fluids, recheck labs in the morning. Coding Level of Care Code Acute Mechanical System Technician for [facility] Fwd Diagnoses Acute hypokalemia E87.6 Acute renal failure N17.9 Acute renal failure type: unspecified BMI less than 19,adult Z68.1 Hypomagnesemia E83.42 Stage III pressure ulcer L89.93 Severe protein-calorie malnutrition E43 Chronic anemia D64.9 Crohn's disease K50.919 Digestive disease complication type: unspecified complication Gastrointestinal tract location: unspecified location Metabolic alkalosis E87.3 Hypochloremia E87.8 Hyponatremia E87.1
[2020-01-09] VITALS: BP 108/64; PULSE 92; RESP 16; TEMP 37.2; O2SAT 96
[2020-01-09] MEDS: sodium chloride 0.9% 1,000 ML 100 ML IV (02:12)
[2020-01-09] MEDS: HYDROcodone-acetaminophen 7.5-325 mg Tablet 1 TAB PO ×3 (02:13→11:52)
[2020-01-09 04:00] VITALS: BP 103/66; PULSE 86; RESP 15; TEMP 37.1; O2SAT 94
[2020-01-09 05:15] LABS: Lactic Sepsis W/Reflex 2.7 mmol/L (0.5-2.2)
[2020-01-09 05:33] LABS: Alanine Aminotransferase 24 U/L (0-33); Albumin Level 3.2 g/dL (3.5-5.2); Alkaline Phosphatase 132 IU/L (35-105); Anion Gap 11.4 (5-19); Aspartate Amino Transferase 40 U/L (0-32); Blood Urea Nitrogen 20 mg/dL (8-23); Calcium 9.3 mg/dL (8.5-10.5); Carbon Dioxide 38 mmol/L (22-29); Chloride 90 mmol/L (98-107); Globulin 2.8 g/dL (1.3-4.6); Glomerular Filtration Rate 31.9 mL/min (90-130); Glucose 98 mg/dL (65-115); Magnesium 1.7 mg/dL (1.7-2.3); Osmolality Calculated 285 mOsm/kg (285-295); Phosphorus 2.3 mg/dL (2.5-4.5); Potassium 3.4 mmol/L (3.5-5.1); Sodium 136 mmol/L (136-145); Total Bilirubin 0.2 mg/dL (0.15-1.2)
--- NOTE | 2020-01-09 06:00 | ECG_ITS ---
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 Measurements Intervals [place] Rate: 99 P: NV: -1 QRS: 74 QRSD: 79 T: 76 QT: 352 QTc: 452 Interpretive Statements SINUS RHYTHM WITH FREQUENT VENTRICULAR PREMATURE COMPLEXES WITH OCCASIONAL SUPRAVENTRICULAR PREMATURE COMPLEXES POSSIBLE RIGHT VENTRICULAR CONDUCTION DELAY [RSR (QR) IN V1/V2] Compared to ECG 01/07/2020 20:52:12 Supraventricular rhythm now present Indeterminate axis no longer present Electronically Signed On 01-09-2020 18:55:25 LOG DECK TENDER by Sara Arango M.D. [id number]
[2020-01-09 07:12] LABS: Basophils % 0.6 %; Eosinophils # 0.3 10^3/uL (0.0-0.8); Hematocrit 30.1 % (37.0-47.0); Hemoglobin 8.9 g/dL (11.5-15.3); Lymphocytes # 1.6 10^3/uL (0.8-4.8); Lymphocytes % 22.4 %; Mean Corpuscular HGB Conc 29.6 g/dL (30.0-36.0); Mean Corpuscular Hemoglobin 29.2 pg (28.0-34.0); Mean Corpuscular Volume 98.7 fL (81-99); Mean Platelet Volume 11.3 fL (7.4-10.4); Monocytes # 0.7 10^3/uL (0.2-0.9); Monocytes % 9.2 %; Neutrophils # 4.48 10^3/uL (1.8-7.7); Neutrophils % 63.7 %; Nucleated Red Blood Cells % 0 %; Platelet Count 250 10^3/cmm (130-400); Red Blood Count 3.05 10^6/uL (4.1-5.3); Red Cell Distribution Width 14.5 % (12.1-15.1)
[2020-01-09 07:34] LABS: Reflex Lactate Order REFLEX LACTIC ORDERD
[2020-01-09 07:50] VITALS: BP 120/65; PULSE 60; RESP 16; TEMP 37; O2SAT 96
[2020-01-09] MEDS: potassium chloride ER 20 mEq Tablet 40 MEQ PO (08:03)
[2020-01-09] MEDS: gabapentin 300 mg Capsule PO (08:03)
[2020-01-09] MEDS: magnesium oxide 400 mg tablet PO (08:03)
--- NOTE | 2020-01-09 10:29 | P.DS_ITS ---
Discharge Providers Date of Admission: 01/07/20 23:44 Date of Discharge: January 09, 2020 Attending Provider at Admission: Cody Johns MD Attending Provider at Discharge: Teresa France MD Primary Care Provider: Veda Gilman MD Diagnoses at Discharge Discharge Diagnosis (1) Acute hypokalemia: Status: Acute (2) Acute renal failure: Status: Acute Qualifiers: Acute renal failure type: unspecified Qualified Code(s): N17.9 - Acute kidney failure, unspecified (3) BMI less than 19,adult: Status: Chronic (4) Hypomagnesemia: Status: Acute Permanent problem details: chronic (5) Stage III pressure ulcer: Status: Chronic (6) Severe protein-calorie malnutrition: Status: Chronic (7) Chronic anemia: Status: Chronic (8) Crohn's disease: Status: Chronic Permanent problem details: s/p total colectomy with ileostomy Qualifiers: Digestive disease complication type: unspecified complication Gastrointestinal tract location: unspecified location Qualified Code(s): K50.919 - Crohn's disease, unspecified, with unspecified complications (9) Metabolic alkalosis: Status: Acute (10) Hypochloremia: Status: Acute (11) Hyponatremia: Status: Acute Reason for Visit Reason for Visit: low bp/ weak/unsteady Hospital Course Hospital Course Janene Gallegos is a 69 year old female with a past medical history of COVID-19, severe protein calorie malnutrition, chronic failure to thrive, had a port for electrolyte transfusions for chronic hypokalemia, hypomagnesemia, hyponatremia, anemia, removed earlier this josé miguel due to port infection. Has a past medical history of ulcerative colitis with colostomy and short gut syndrome, CKD stage III, CAD, sacral ulcer, recent history of open reduction internal fixation of acute right humeral neck fracture, recent history of open reduction internal fixation of left distal radial fracture, currently in a splint who presents to [facility] due to not feeling well, was found to have severe dehydration, metabolic alkalosis, hypokalemia and hypomagnesemia which were appropriately repleted. She is being discharged today in a chronically ill but stable condition. Physical Exam Narrative: EXAM NARRATIVE: GEN: Awake, alert and oriented, no acute distress CVS: S1S2 N RS: CTA B/L Abd: Soft, nt/nd , bs+ PLATE EMBOSSER: no focal neuro deficits Discharge Data Data Completed and Pending: Completed Studies During Hospitalization Category Date Time Status XR chest 1V awilda ble [id number] Urgent Exams 01/07/20 20:30 Completed Pending at discharge Category Date Time Status Complete Blood Co unt w/Auto AM LABS Lab 01/10/20 04:00 Ordered Complete Blood Co unt w/Auto AM LABS Lab 01/11/20 04:00 Ordered Comprehensive Met abolic Panel AM LA BS Lab 01/10/20 04:00 Ordered Comprehensive Met abolic Panel AM LA BS Lab 01/11/20 04:00 Ordered Lactic Sepsis W/R eflex AM LABS Lab 01/10/20 04:00 Ordered Lactic Sepsis W/R eflex AM LABS Lab 01/11/20 04:00 Ordered Magnesium AM LABS Lab 01/10/20 04:00 Ordered Magnesium AM LABS Lab 01/11/20 04:00 Ordered Osmolality Urine Stat Lab 01/08/20 01:16 Uncollected Phosphorus AM LAB S Lab 01/10/20 04:00 Ordered Phosphorus AM LAB S Lab 01/11/20 04:00 Ordered Urea Nitrogen,Uri ne Random Stat Lab 01/08/20 01:16 Uncollected Urine Eosinophils Stat Lab 01/08/20 01:16 Uncollected Urine Protein Abi ctrop Random Stat Lab 01/08/20 01:16 Uncollected Urine Random Lyte s Stat Lab 01/08/20 01:16 Uncollected Labs from last 24 hours 01/09/20 01/09/20 01/09/20 08:43 04:45 04:45 WBC RBC Hgb Hct MCV MCH MCHC RDW Plt Count MPV Neut % (Auto) Lymph % (Auto) [place] % (Auto) Eos % (Auto) Baso % (Auto) Neut # (Auto) Lymph # (Auto) [place] # (Auto) Eos # (Auto) Baso # (Auto) Nucleated RBC % (a uto) Nucleated RBCs # Sodium 136 Potassium 3.4 L Chloride 90 L Carbon Dioxide 38 H Anion Gap 11.4 BUN 20 Creatinine 1.6 H GFR Calculation 31.9 L Glucose 98 Calculated Osmolal ity 285 Lactic Acid 2.7 H Lactic Acid (Sepsi s) 3.0 H Calcium 9.3 Phosphorus 2.3 L Magnesium 1.7 Total Bilirubin 0.2 AST 40 H ALT 24 Alkaline Phosphata se 132 H Total Protein 6.0 L Albumin 3.2 L Globulin 2.8 01/09/20 04:45 WBC 7.0 RBC 3.05 L Hgb 8.9 L Hct 30.1 L MCV 98.7 MCH 29.2 MCHC 29.6 L RDW 14.5 Plt Count 250 MPV 11.3 H Neut % (Auto) 63.7 Lymph % (Auto) 22.4 [place] % (Auto) 9.2 Eos % (Auto) 4.0 Baso % (Auto) 0.6 Neut # (Auto) 4.48 Lymph # (Auto) 1.6 [place] # (Auto) 0.7 Eos # (Auto) 0.3 Baso # (Auto) 0.0 Nucleated RBC % (a uto) 0 Nucleated RBCs # 0.0 Sodium Potassium Chloride Carbon Dioxide Anion Gap BUN Creatinine GFR Calculation Glucose Calculated Osmolal ity Lactic Acid Lactic Acid (Sepsi s) Calcium Phosphorus Magnesium Total Bilirubin AST ALT Alkaline Phosphata se Total Protein Albumin Globulin Vitals: Last Vital Signs Temp 98.6 F 01/09/20 07:50 Pulse 60 01/09/20 07:50 Resp 16 01/09/20 07:50 BP 120/65 01/09/20 07:50 Pulse Ox 96 01/09/20 07:50 Discharge Plan Discharge Patient Disposition: Home Condition: Stable Prescriptions: Continued promethazine 25 mg tablet 25 mg PO QID PRN (Reason: Nausea) Qty: 30 RF: 0 melatonin 3 mg Tablet 3 mg PO BEDTIME PRN (Reason: Sleep) RF: 0 gabapentin 300 mg capsule 300 mg PO BID RF: 0 hydroxyzine pamoate 25 mg Capsule 25 mg PO TID PRN (Reason: Itching) RF: 0 potassium chloride 20 mEq Tablet Extended Release 40 meq PO BID RF: 0 magnesium oxide 400 mg (241.3 mg magnesium) Tablet 400 mg PO BID Qty: 20 RF: 0 hydrocodone-acetaminophen [[place]] 7.5-325 mg tablet 1 tab PO Q4H Qty: 30 RF: 0 tramadol 50 mg Tablet 50 mg PO BID PRN (Reason: Pain) RF: 0 oxycodone-acetaminophen 5-325 mg Tablet 1 tab PO Q4H PRN (Reason: Pain) RF: 0 aspirin 81 mg Tablet 81 mg PO BID RF: 0 Probiotic 3 billion cell Capsule 3,000 mmu cells PO DAILY Qty: 0 RF: 0 Discharge Orders: Discharge Order (Routine); Ordered 01/09/20 Ordered By: Teresa France Referrals: Veda Gilman MD [Primary Care Provider] - 01/13/20 10:20 am (Follow up with Veda Gilman on ThursdayJanuary 12 at 10:20 am) Discharge Diet: Usual diet Discharge Activity: Resume usual activity Patient Instructions: Electrolyte Supplement (By mouth), Hypokalemia, Renal Failure Diet (GEN), Short Bowel Syndrome (DC) Discharge Attestations Time Spent in Discharge Care*: less than 30 min Quality Metrics Clinical Quality Measures During this hospital stay, did patient experience: None Coding Level of Care Code Acute Jigger Machine Operator for Chg Fwd Diagnoses Acute hypokalemia E87.6 Acute renal failure N17.9 Acute renal failure type: unspecified BMI less than 19,adult Z68.1 Hypomagnesemia E83.42 Stage III pressure ulcer L89.93 Severe protein-calorie malnutrition E43 Chronic anemia D64.9 Crohn's disease K50.919 Digestive disease complication type: unspecified complication Gastrointestinal tract location: unspecified location Metabolic alkalosis E87.3 Hypochloremia E87.8 Hyponatremia E87.1
[2020-01-09 11:30] VITALS: BP 124/72; PULSE 72; RESP 18; TEMP 36.6; O2SAT 96
[2020-01-09] MEDS: potassium chloride oral liq 20 mEq/15 mL UDC 40 MEQ PO (11:56)
[2020-01-09 14:04] VITALS: BP 124/72; PULSE 72; RESP 18; TEMP 36.6; O2SAT 96
== END 2020-01-09 12:30 | disposition home or self-care (01) ==
LOC: ER 01-08 00:03 → MEDSURG 01-08 00:45
PROVIDERS: Admitting Provider Family Medicine; Emergency Provider Emergency Medicine; PCP Family Medicine; Visit Provider Student in an Organized Health Care Education/Training Program
DX: E87.6 Hypokalemia (principal); N17.9 Acute kidney failure, unspecified; E83.42 Hypomagnesemia; L89.93 Pressure ulcer of unspecified site, stage 3; E43 Unspecified severe protein-calorie malnutrition; D64.9 Anemia, unspecified; K50.919 Crohn's disease, unspecified, with unspecified complications; E87.3 Alkalosis; E87.8 Other disorders of electrolyte and fluid balance, not elsewhere classified; E87.1 Hypo-osmolality and hyponatremia; N18.30 Chronic kidney disease, stage 3 unspecified; I48.91 Unspecified atrial fibrillation; I25.2 Old myocardial infarction; M81.0 Age-related osteoporosis without current pathological fracture; I50.20 Unspecified systolic (congestive) heart failure; Z68.1 Body mass index [BMI] 19.9 or less, adult
CPT/HCPCS: 12345; 36415; 71045; 80053; 83605; 83735; 84100; 85025; 86140; 93005; 96361; 96365; 96366; 96375; 97165; 99283; 99285; G0378; J1650; J3010; J3480; J7030

== ENCOUNTER 2020-01-11 10:00 | Outpatient (CLI) | payer MEDICARE, SELFPAY ==
[2020-01-11] MEDS: potassium chloride premix 100 ML 25 MEQ IV (10:50)
[2020-01-11] MEDS: sodium chloride 0.9% 1,000 ML 400 ML IV (11:15)
[2020-01-11] MEDS: ondansetron 2 mg/ML SDV 2 mL 4 MG IVP (11:15)
[2020-01-11 11:22] VITALS: BP 75/47; PULSE 103; RESP 20; TEMP 36.2; O2SAT 99; BMI 12.4
--- NOTE | 2020-01-11 11:24 | PC.NURSE ---
THIS NURSE CALLED DR MARTÍNEZ REGARDING HYPOTENSION AND TACHYCARDIA IN PATIENT. VERBAL TELEPHONE ORDERS RECEIVED TO GIVE PATIENT A LITER OF IV FLUIDS.
[2020-01-11 14:13] LABS: Anion Gap 10.9 (5-19); Blood Urea Nitrogen 23 mg/dL (8-23); Calcium 9.1 mg/dL (8.5-10.5); Chloride 85 mmol/L (98-107); Glomerular Filtration Rate 24.6 mL/min (90-130); Glucose 42 mg/dL (65-115); Magnesium 1.7 mg/dL (1.7-2.3); Osmolality Calculated 281 mOsm/kg (285-295); Sodium 135 mmol/L (136-145)
[2020-01-11 14:17] LABS: Potassium 2.9 mmol/L (3.5-5.1)
[2020-01-11 14:18] LABS: Carbon Dioxide 42 mmol/L (22-29)
--- NOTE | 2020-01-11 14:25 | PC.NURSE ---
PT REFUSED MAGNESIUM IV THERAPY. SHE STATES THAT SHE HAS BEEN HERE LONG ENOUGH AND IS NOT GOING TO BE HERE ANY LONGER. DR NICK NOTIFIED AND AWARE.
[2020-01-18 09:54] LABS: Anion Gap 11.6 (5-19); Blood Urea Nitrogen 48 mg/dL (8-23); Calcium 9.2 mg/dL (8.5-10.5); Chloride 78 mmol/L (98-107); Glomerular Filtration Rate 11.4 mL/min (90-130); Glucose 77 mg/dL (65-115); Magnesium 1.8 mg/dL (1.7-2.3); Osmolality Calculated 287 mOsm/kg (285-295); Sodium 133 mmol/L (136-145)
[2020-01-18 09:59] LABS: Carbon Dioxide 46 mmol/L (22-29); Potassium 2.6 mmol/L (3.5-5.1)
== END 2020-01-11 23:55 | disposition home or self-care (01) ==
PROVIDERS: PCP Family Medicine; Visit Provider Family Medicine
DX: E87.6 Hypokalemia (principal); E83.42 Hypomagnesemia
CPT/HCPCS: 36591; 80048; 83735; 96365; 96366; 96375; J2405; J3480; J7030

== ENCOUNTER 2020-01-13 15:11 | Outpatient (CLI) | payer MEDICARE, SELFPAY | END 2020-01-13 15:12 | disposition home or self-care (01) | LOC: WOUND 15:11 | PROVIDERS: PCP Family Medicine; Visit Provider Surgery | DX: L89.154 Pressure ulcer of sacral region, stage 4 (principal) | CPT/HCPCS: 11042 ==

== ENCOUNTER 2020-01-18 08:43 | Outpatient (RCR) | payer MEDICARE, SELFPAY ==
[2020-01-18 09:07] VITALS: BP 121/52; PULSE 97; RESP 18; TEMP 37.1; O2SAT 96
== END 2020-01-30 23:59 | disposition home or self-care (01) ==
LOC: OPS 08:43
PROVIDERS: PCP Family Medicine; Visit Provider Family Medicine
DX: E87.6 Hypokalemia (principal)
CPT/HCPCS: 80048; 83735; J3480

== ENCOUNTER 2020-01-20 15:28 | Outpatient (CLI) | payer MEDICARE, SELFPAY | END 2020-01-20 15:29 | disposition home or self-care (01) | LOC: WOUND 15:29 | PROVIDERS: PCP Family Medicine; Visit Provider Surgery | DX: L89.154 Pressure ulcer of sacral region, stage 4 (principal) | CPT/HCPCS: 99212 ==

== ENCOUNTER 2020-01-20 16:13 | Emergency (ER) | payer MEDICARE, SELFPAY ==
[2020-01-20 16:26] VITALS: BP 94/49; PULSE 81; RESP 18; TEMP 36.1; O2SAT 100; BMI 15.9
== END 2020-01-20 16:58 | disposition left against medical advice (07) ==
LOC: ER 16:43
PROVIDERS: PCP Family Medicine
DX: Z53.21 Procedure and treatment not carried out due to patient leaving prior to being seen by health care provider (principal)
CPT/HCPCS: 99281

== ENCOUNTER 2020-01-25 13:30 | Outpatient (CLI) | payer MEDICARE, SELFPAY | END 2020-01-25 13:31 | disposition home or self-care (01) | LOC: WOUND 13:30 | PROVIDERS: PCP Family Medicine; Visit Provider Nurse Practitioner Family | DX: I96 Gangrene, not elsewhere classified (principal); L89.154 Pressure ulcer of sacral region, stage 4 | CPT/HCPCS: 11042 ==

== ENCOUNTER 2020-02-03 11:00 | Outpatient (CLI) | payer MEDICARE, SELFPAY ==
[2020-02-03 12:35] VITALS: BP 104/57; PULSE 82; RESP 18; TEMP 36.3
[2020-02-03 12:53] LABS: Anion Gap 13.4 (5-19); Blood Urea Nitrogen 36 mg/dL (8-23); Calcium 9.2 mg/dL (8.5-10.5); Chloride 77 mmol/L (98-107); Glucose 94 mg/dL (65-115); Osmolality Calculated 284 mOsm/kg (285-295); Sodium 133 mmol/L (136-145)
[2020-02-03 12:57] LABS: Potassium 2.4 mmol/L (3.5-5.1)
[2020-02-03 12:58] LABS: Carbon Dioxide 45 mmol/L (22-29)
[2020-02-03 14:52] VITALS: BP 97/48; PULSE 85; RESP 16; O2SAT 98
== END 2020-02-03 11:01 | disposition home or self-care (01) ==
LOC: OPS 11:04
PROVIDERS: PCP Family Medicine; Visit Provider Family Medicine
DX: Z46.89 Encounter for fitting and adjustment of other specified devices (principal); S52.502D Unspecified fracture of the lower end of left radius, subsequent encounter for closed fracture with routine healing; X58.XXXD Exposure to other specified factors, subsequent encounter
CPT/HCPCS: 36591; 80048; 83735; 96365; 96366; J3480

== ENCOUNTER → 2020-02-07 08:59 | Outpatient (BNVA) | payer MEDICARE, SELFPAY | PROVIDERS: PCP Family Medicine; Visit Provider Orthopaedic Surgery | DX: Z48.89 Encounter for other specified surgical aftercare (principal); S52.502A Unspecified fracture of the lower end of left radius, initial encounter for closed fracture; S42.201A Unspecified fracture of upper end of right humerus, initial encounter for closed fracture; X58.XXXA Exposure to other specified factors, initial encounter | CPT/HCPCS: 73030; 73110 ==

== ENCOUNTER 2020-02-10 13:47 | Outpatient (CLI) | payer MEDICARE, SELFPAY | END 2020-02-10 13:48 | disposition home or self-care (01) | LOC: WOUND 13:48 | PROVIDERS: PCP Family Medicine; Visit Provider Surgery | DX: L89.154 Pressure ulcer of sacral region, stage 4 (principal) | CPT/HCPCS: 11042 ==

== ENCOUNTER 2020-02-15 10:00 | Outpatient (RCR) | payer MEDICARE, SELFPAY ==
[2020-02-08] MEDS: potassium chloride premix 100 ML 37.5 MEQ IV ×2 (10:21→13:06)
[2020-02-08 10:24] VITALS: BP 130/58; PULSE 97; RESP 18; TEMP 37.2; O2SAT 100
[2020-02-08 10:29] LABS: Blood Urea Nitrogen 23 mg/dL (8-23); Calcium 9.2 mg/dL (8.5-10.5); Carbon Dioxide 40 mmol/L (22-29); Chloride 78 mmol/L (98-107); Glomerular Filtration Rate 27.8 mL/min (90-130); Glucose 102 mg/dL (65-115); Osmolality Calculated 282 mOsm/kg (285-295); Sodium 134 mmol/L (136-145)
[2020-02-08 11:19] LABS: Magnesium 1.3 mg/dL (1.7-2.3)
--- NOTE | 2020-02-08 14:00 | PC.PHAR ---
Magnesium order clarification: the patient's written orders stated to repace mag with magnesium chloride 12 meq. we do not carry this product nor could I verify its availability. Contacted Dr. Gilman about using mag sulfate. Agreed upon 2g IVPB using the following source (edited to remove nonessential material: SYMPTOMATIC/ASYMPTOMATIC? WEIGHT Mg > 1.2 mg/dl < 50 kg 1-2 gm Mg Sulfate
[2020-02-08] MEDS: magnesium sulfate premix 2 GM/50 ML PIGGYBACK IV (14:03)
[2020-02-15] MEDS: potassium chloride premix 100 ML 25 MEQ IV (11:25)
[2020-02-15 11:40] LABS: Anion Gap 10.3 (5-19); Blood Urea Nitrogen 26 mg/dL (8-23); Calcium 9.7 mg/dL (8.5-10.5); Chloride 80 mmol/L (98-107); Glomerular Filtration Rate 27.8 mL/min (90-130); Glucose 106 mg/dL (65-115); Magnesium 1.8 mg/dL (1.7-2.3); Osmolality Calculated 289 mOsm/kg (285-295); Sodium 137 mmol/L (136-145)
[2020-02-15 11:52] LABS: Carbon Dioxide 49 mmol/L (22-29); Potassium 2.3 mmol/L (3.5-5.1)
--- NOTE | 2020-02-15 11:54 | SUR.OPER ---
11:25 kcl drip infusing. patient on quality assurance monitor body.diet tray served.
[2020-02-15 11:55] VITALS: BP 129/68; PULSE 97; RESP 16; TEMP 36.2; O2SAT 98
--- NOTE | 2020-02-15 12:10 | SUR.OPER ---
11:55 Received critical values from lab, KCL 2.3MEQ. MAG 1.8.
--- NOTE | 2020-02-15 12:28 | SUR.OPER ---
12:05 assisted to bathroom and back to treatment room.sinus tach on monitor. call barr within reach.
--- NOTE | 2020-02-15 14:27 | SUR.OPER ---
14:25. first bag of KCL 40meq infused. Patient stated she did not want the second bag.possible dangers explained to patient. Stated her ride was on the way to pick her up and she wanted to leave now. Infuser port accessed dc'ed after being flushed with 20ml of saline flush and band stevie applied. Patient left ambulatory in no distress.
[2020-02-22 10:11] VITALS: BP 114/54; PULSE 90; RESP 16; TEMP 37; O2SAT 100
[2020-02-22] MEDS: potassium chloride premix 100 ML 37.5 MEQ IV (10:35)
[2020-02-22 11:38] LABS: Anion Gap 16.1 (5-19); Blood Urea Nitrogen 33 mg/dL (8-23); Calcium 9.2 mg/dL (8.5-10.5); Chloride 79 mmol/L (98-107); Glomerular Filtration Rate 22.1 mL/min (90-130); Glucose 94 mg/dL (65-115); Magnesium 1.4 mg/dL (1.7-2.3); Osmolality Calculated 287 mOsm/kg (285-295); Sodium 135 mmol/L (136-145)
[2020-02-22 11:44] LABS: Carbon Dioxide 42 mmol/L (22-29); Potassium 2.1 mmol/L (3.5-5.1)
[2020-02-22] MEDS: magnesium sulfate premix 2 GM/50 ML PIGGYBACK IV (12:13)
== END 2020-03-01 23:59 | disposition home or self-care (01) ==
LOC: OPS 10:00
PROVIDERS: PCP Family Medicine; Visit Provider Family Medicine
DX: E87.6 Hypokalemia (principal); E83.42 Hypomagnesemia
CPT/HCPCS: 36415; 36591; 36592; 80048; 83735; 96365; 96366; 96367; 96368; J3475; J3480

== ENCOUNTER 2020-02-17 13:53 | Outpatient (CLI) | payer MEDICARE, SELFPAY | END 2020-02-17 13:54 | disposition home or self-care (01) | LOC: WOUND 13:54 | PROVIDERS: PCP Family Medicine; Visit Provider Surgery | DX: L89.154 Pressure ulcer of sacral region, stage 4 (principal) | CPT/HCPCS: 11042 ==

== ENCOUNTER 2020-03-16 08:23 | Outpatient (CLI) | payer MEDICARE, SELFPAY | END 2020-03-16 08:24 | disposition home or self-care (01) | LOC: WOUND 08:24 | PROVIDERS: PCP Family Medicine; Visit Provider Surgery | DX: Z09 Encounter for follow-up examination after completed treatment for conditions other than malignant neoplasm (principal) | CPT/HCPCS: 17250; G0463 ==

== ENCOUNTER 2020-03-21 08:14 | Outpatient (RCR) | payer MEDICARE, SELFPAY ==
[2020-03-07 12:08] VITALS: BP 116/60; PULSE 90; RESP 18; TEMP 36.2; O2SAT 98
[2020-03-07] MEDS: potassium chloride premix 100 ML 37.5 MEQ IV ×2 (12:35→15:35)
[2020-03-07 12:58] LABS: Albumin Level 3.8 g/dL (3.5-5.2); Anion Gap 12.2 (5-19); Blood Urea Nitrogen 24 mg/dL (8-23); Calcium 9.5 mg/dL (8.5-10.5); Chloride 76 mmol/L (98-107); Creatinine Clr Calc Pharmacy 12.4946; Glomerular Filtration Rate 23.3 mL/min (90-130); Glucose 118 mg/dL (65-115); Magnesium 1.5 mg/dL (1.7-2.3); Osmolality Calculated 285 mOsm/kg (285-295); Phosphorus 2.8 mg/dL (2.5-4.5); Sodium 135 mmol/L (136-145)
[2020-03-07 13:03] LABS: Carbon Dioxide 49 mmol/L (22-29); Potassium 2.2 mmol/L (3.5-5.1)
[2020-03-07] MEDS: magnesium sulfate premix 2 GM/50 ML PIGGYBACK IV (13:06)
--- NOTE | 2020-03-07 14:57 | SUR.OPER ---
1300 BMP, Mg, and Renal panel results sent to Dr. Veda Gilman and Dr. Malcom Benz.
[2020-03-14] MEDS: potassium chloride premix 100 ML 37.5 MEQ IV ×2 (08:45→12:16)
[2020-03-14 09:21] LABS: Albumin Level 3.8 g/dL (3.5-5.2); Blood Urea Nitrogen 23 mg/dL (8-23); Calcium 9.9 mg/dL (8.5-10.5); Chloride 75 mmol/L (98-107); Glucose 122 mg/dL (65-115); Magnesium 1.6 mg/dL (1.7-2.3); Osmolality Calculated 279 mOsm/kg (285-295); Phosphorus 2.6 mg/dL (2.5-4.5); Sodium 132 mmol/L (136-145)
[2020-03-14 09:22] LABS: Carbon Dioxide 48 mmol/L (22-29)
[2020-03-14 09:46] VITALS: BP 143/106; PULSE 93; RESP 16; TEMP 36.7; O2SAT 100
[2020-03-14] MEDS: magnesium sulfate premix 2 GM/50 ML PIGGYBACK IV (10:03)
[2020-03-21 08:30] VITALS: BP 119/67; PULSE 90; RESP 18; TEMP 36.3; O2SAT 100
[2020-03-21] MEDS: potassium chloride premix 100 ML 37.5 MEQ IV (08:45)
--- NOTE | 2020-03-21 09:07 | SUR.PREOP ---
08:35 Infuser port accessed with good blood return . Flushed with 20ml of saline flush.labs drawn. 08:40 IV KCL INFUSING VIA PUMP. NSR ON VIBRATOR OPERATOR.
[2020-03-21 10:10] LABS: Anion Gap 12.2 (5-19); Blood Urea Nitrogen 33 mg/dL (8-23); Chloride 73 mmol/L (98-107); Glomerular Filtration Rate 18.2 mL/min (90-130); Glucose 94 mg/dL (65-115); Magnesium 1.7 mg/dL (1.7-2.3); Osmolality Calculated 277 mOsm/kg (285-295); Sodium 130 mmol/L (136-145)
[2020-03-21 10:12] LABS: Carbon Dioxide 47 mmol/L (22-29); Potassium 2.2 mmol/L (3.5-5.1)
[2020-03-21] MEDS: magnesium sulfate premix 2 GM/50 ML PIGGYBACK IV (10:55)
--- NOTE | 2020-03-21 15:24 | SUR.OPER ---
14:20 INFUSER PORT FLUSHED WITH 20ml OF NORMAL SALINE FLUSH AND 2X2 AND BANDADE APPLIED PER PATIENT REQUEST. PATIENT LEFT IN STABLE CONDITION.
--- NOTE | 2020-03-28 08:50 | PC.NURSE ---
0876 Pt unable to get out of driveway due to snow and unable to make her appointment. States she will come next week.
== END 2020-04-01 23:59 | disposition home or self-care (01) ==
LOC: OPS 08:14
PROVIDERS: PCP Family Medicine; Visit Provider Family Medicine
DX: E87.6 Hypokalemia (principal); E83.42 Hypomagnesemia
CPT/HCPCS: 36591; 36592; 80048; 80069; 83735; 96365; 96366; 96367; J3475; J3480

== ENCOUNTER 2020-04-04 08:27 | Outpatient (RCR) | payer MEDICARE, SELFPAY ==
[2020-04-04 08:20] VITALS: BP 109/57; PULSE 89; RESP 18; TEMP 36.2; O2SAT 96
[2020-04-04] MEDS: potassium chloride premix 100 ML 25 MEQ IV ×2 (09:10→12:15)
[2020-04-04 10:04] LABS: Albumin Level 3.8 g/dL (3.5-5.2); Blood Urea Nitrogen 36 mg/dL (8-23); Calcium 9.9 mg/dL (8.5-10.5); Chloride 70 mmol/L (98-107); Glucose 93 mg/dL (65-115); Magnesium 1.6 mg/dL (1.7-2.3); Osmolality Calculated 280 mOsm/kg (285-295); Phosphorus 2.5 mg/dL (2.5-4.5); Sodium 131 mmol/L (136-145)
[2020-04-04 10:07] VITALS: BMI 12.8
[2020-04-04 10:24] LABS: Calcium 9.6 mg/dL (8.5-10.5)
[2020-04-04 10:33] LABS: Anion Gap 13.5 (5-19)
[2020-04-04 10:35] LABS: Carbon Dioxide 50 mmol/L (22-29); Potassium 2.5 mmol/L (3.5-5.1)
[2020-04-04 10:51] LABS: Creatinine Urine, Random 126 mg/dL (28-217); Microalbum Creatinine Ratio Ur 16 mg/dL (0-20); Microalbumin Random Urine 2 ug/dL (0-20)
[2020-04-04 10:52] LABS: Parathyroid Hormone 391.6 pg/mL (15-65)
[2020-04-04] MEDS: magnesium sulfate premix 2 GM/50 ML PIGGYBACK IV (11:02)
[2020-04-04 12:58] VITALS: BP 139/74; PULSE 97; RESP 16; TEMP 36.6; O2SAT 98
--- NOTE | 2020-04-04 15:21 | XR_ITS ---
WS: [id number] Left wrist, 3 views, 04/04/2020 Clinical Data: Z48.89 - Encounter for other specified surgical aftercare Comparison: Left wrist, 02/07/2020. Findings: The internal fixation of the distal left radial fracture remains same. There is a ventral plate appli ed with multiple orthopedic screws. XR/XR wrist LT min 3V* [id number] Impression: No change in internal fixation of distal left radial fracture.
--- NOTE | 2020-04-04 15:21 | XR_ITS ---
WS: [id number] Right shoulder, 3 views, 04/04/2020 Clinical Data: Z48.89 - Encounter for other specified surgical aftercare Comparison: Right shoulder, 02/07/2020. Findings: The internal fixation of the fracture of the right humeral neck and right humeral shaft remains the s joshua. There is a lateral plate fixed with multiple screws. There is an infusion catheter which appears end in the superior vena cava. XR/XR shoulder RT min 2V* [id number] Impression: No change in internal fixation of right humeral neck fracture.
--- NOTE | 2020-04-25 07:40 | PC.NURSE ---
Addendum entered by Lynda Lombardo 04/26/20 14:57: Recommended to patient daughter that patient should probably go to ER or be seen by primary physician. Original Note: 0740 Pt daughter called stating patient is refusing to come to appointment today for potassium infusion. The patient states she has been up all night throwing up and does not feel like coming in. Patient missed the last 2 weeks previous to this encounter due to inclement weather. The daughter understands this is very concerning.
--- NOTE | 2020-04-26 14:59 | PC.NURSE ---
04/26/20 1500 Follow up phone call made to patient to check on her well being. Pt states she feels fine and is over her stomach bug. Has not had any further bouts of N/V and states she has good energy today. Pt states she plans to attend her next appointment on May 02.
== END 2020-04-29 23:59 | disposition home or self-care (01) ==
LOC: OPS 08:27
PROVIDERS: PCP Family Medicine; Visit Provider Family Medicine
DX: E87.6 Hypokalemia (principal); E83.42 Hypomagnesemia
CPT/HCPCS: 36591; 73030; 73110; 80048; 80069; 82044; 82310; 83735; 83970; 96365; 96366; 96367; J3475; J3480

== ENCOUNTER → 2020-04-10 14:30 | Outpatient (BNVA) | payer MEDICARE, SELFPAY | PROVIDERS: PCP Family Medicine; Visit Provider Nurse Practitioner Family | DX: R05 Cough (principal) | CPT/HCPCS: 71046 ==

== ENCOUNTER → 2020-04-27 14:31 | Outpatient (BNVA) | payer MEDICARE, SELFPAY | PROVIDERS: PCP Family Medicine; Visit Provider Nurse Practitioner Family | DX: M85.842 Other specified disorders of bone density and structure, left hand (principal); M19.042 Primary osteoarthritis, left hand; M79.672 Pain in left foot; M79.642 Pain in left hand; M79.89 Other specified soft tissue disorders | CPT/HCPCS: 73130; 73630 ==

== ENCOUNTER 2020-04-30 13:46 | Observation (INO) | payer MEDICARE, SELFPAY ==
[2020-04-30] VITALS (11 sets, daily range): BP systolic 87–115; BP diastolic 48–89; PULSE 82–97; RESP 12–21; TEMP 36.5–36.7; O2SAT 95–98; BMI 12.8
--- NOTE | 2020-04-30 13:55 | ECG_ITS ---
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 Measurements Intervals [place] Rate: 86 P: 73 MA: 155 QRS: 44 QRSD: 81 T: 77 QT: 418 QTc: 500 Interpretive Statements SINUS RHYTHM POSSIBLE RIGHT ATRIAL ENLARGEMENT [0.25mV P WAVE] POSSIBLE LEFT ATRIAL ENLARGEMENT [-0.1mV P WAVE IN V1/V2] POSSIBLE RIGHT VENTRICULAR CONDUCTION DELAY [RSR (QR) IN V1/V2] Compared to ECG 01/09/2020 07:00:27 Ventricular premature complex(es) no longer present Electronically Signed On 04-30-2020 18:51:20 ADJUNCT TRAINER by Oswaldo Reynolds M.D. [id number]
--- NOTE | 2020-04-30 13:56 | W.ED.ARRPALP ---
HPI - Arrhythmia/Palpitations General: Chief Complaint: Arrhythmia/Palpitations Stated Complaint: IRREGULAR CARDIAC RHYTHM Time Seen by Provider: 04/30/20 13:49 History of Present Illness: HPI narrative: 70-year-old female who is an outpatient scanning IV potassium. She reportedly had a run of V. tach. Nurses report from outpatients described somewhere between 45 seconds and 2 minutes. Patient denies chest pain denies loss of consciousness. Patient has a history of hyperaldosteronism atrial fibrillation coronary artery disease. He also severely hypokalemic and frequently gets supplementation. MD complaint: irregular heart beat Onset (ago): minute(s) Duration: now resolved Severity: mild Arrhythmia history: atrial fibrillation Associated symptoms: Deny nausea or vomiting Review of Systems Const: Denies: fever(s), chills, body aches, change in appetite, fatigue or malaise ENMT: Denies: throat pain, ear or mastoid pain, nasal discharge or nasal congestion Card: Denies: chest pain, edema, dyspnea on exertion or orthopnea Resp: Denies: dyspnea, productive cough or non-productive cough GI: Denies: abdominal pain, nausea, vomiting, hematemesis, coffee ground emesis, diarrhea, constipation, bloating, hematochezia or melena : Denies: flank pain, difficulty voiding, dysuria, urinary frequency or urinary urgency Skin/Breast: Denies: rash or pruritus PFSH ED PFSH: Medical History (Updated 05/04/20 @ 15:52 by Eusebio Crandall DO) Atrial fibrillation not chronic Chronic anemia Chronic kidney disease, stage III (moderate) COVID-19 (~10/2019) Crohn's disease s/p total colectomy with ileostomy Hyperaldosteronism Hypersomnia Hypokalemia chronically on IV infusions of potassium and magnesium Hypomagnesemia chronic Local infection due to Port-A-Cath Myocardial infarction (lateral wall) Osteoporosis Severe protein-calorie malnutrition Short gut syndrome Stage III pressure ulcer Systolic congestive heart failure Vitamin B2 deficiency Surgical History H/O ileostomy (~2002) H/O total colectomy (~2002) History of arthrodesis (08/03/18) right index finger History of delivery x4 History of hernia repair History of right hip replacement (~08/2019) Hx of appendectomy Port-A-Cath in place (10/12/19) right IJ Status post open reduction and internal fixation (ORIF) of fracture (12/22/19) left radius, Irina Status post open reduction and internal fixation (ORIF) of fracture (11/2019) right humerus, Irina Family History Other CAD (coronary artery disease) Cancer Congestive heart failure Diabetes Hyperlipidemia Social History Smoking and tobacco status: never smoked Second hand smoke exposure: No Alcohol intake: never Lives independently: Yes Household members: spouse Marital status: Current occupational status: retired History of recent travel: No Current gender identity: Female Physical Exam Const: COMMON NORMALS: no acute distress GENERAL APPEARANCE: cooperative and comfortable ORIENTATION/CONSCIOUSNESS: Yes awake, Yes oriented to person, Yes oriented to place and Yes oriented to time HENMT: COMMON NORMALS: normocephalic, atraumatic and hearing grossly normal bilaterally HEAD & SCALP: normocephalic and atraumatic Eye: COMMON NORMALS: Equal, round and reactive pupils present, EOMs intact bilaterally, conjunctivae normal and no scleral icterus CONJUNCTIVA: Yes conjunctivae normal PUPIL: Yes Equal, round and reactive pupils present Neck/C-Spine: COMMON NORMALS: no JVD Resp: COMMON NORMALS: normal respiratory effort, No retractions, No use of accessory muscles and clear to auscultation bilaterally AUSCULTATION: clear to auscultation bilaterally Cardio: COMMON NORMALS: no JVD, regular rate, regular rhythm and No murmurs present (Cardio) RATE: regular rate RHYTHM: regular rhythm GI: COMMON NORMALS: Soft to palpation and No hepatosplenomegaly present AUSCULTATION: Yes normoactive bowel sounds PALPATION: Yes Soft to palpation, No Tenderness to palpation present (GI), No Guarding due to palpation present (GI) and Yes No hepatosplenomegaly present Extremity: COMMON NORMALS: normal to inspection, capillary refill normal, no clubbing, cyanosis or edema, no calf tenderness and no pedal edema Neuro: SENSORIUM/ORIENTATION: Yes oriented to person, Yes oriented to place and Yes oriented to time Skin: COMMON NORMALS: no rashes or lesions noted GENERAL SKIN EXAM: no rashes or lesions noted Course Vital Signs: Vital signs: Vital Signs Temperature 98.0 F 05/02/20 11:53 Pulse Rate 92 05/02/20 11:53 Respiratory Rate 18 05/02/20 11:53 Blood Pressure 105/60 05/02/20 11:53 Pulse Oximetry 99 05/02/20 11:53 MDM - Arrhythmia/Palpitations MDM Narrative: Medical decision making narrative: Patient stable at this time we have completed her potassium infusion will monitor her overnight for any further arrhythmias. Even her history of hypokalemia and the witnessed run of V. tach in the outpatient department she should be monitored for any recurrences Lab Data: Labs: Lab Results 04/30/20 04/30/20 04/30/20 Range/Units 14:02 14:02 14:02 WBC 6.3 (4.0-10.0) 10^3/ uL RBC 3.24 L (4.1-5.3) 10^6/u L Hgb 10.6 L (11.5-15.3) g/dL Hct 32.3 L (37.0-47.0) % MCV 99.7 H (81-99) fL MCH 32.7 (28.0-34.0) pg MCHC 32.8 (30.0-36.0) g/dL RDW 15.3 H (12.1-15.1) % Plt Count 369 (130-400) 10^3/c mm MPV 10.3 (7.4-10.4) fL Neut % (Auto) 68.9 % Lymph % (Auto) 18.1 % [place] % (Auto) 8.9 % Eos % (Auto) 2.7 % Baso % (Auto) 0.8 % Neut # (Auto) 4.33 (1.8-7.7) 10^3/u L Lymph # (Auto) 1.1 (0.8-4.8) 10^3/u L [place] # (Auto) 0.6 (0.2-0.9) 10^3/u L Eos # (Auto) 0.2 (0.0-0.8) 10^3/u L Baso # (Auto) 0.1 (0.0-0.1) 10^3/u L Nucleated RBC % (a uto) 0 % Nucleated RBCs # 0.0 /100WBC Specimen Type Sample Site ABG pH (7.35-7.45) ABG pCO2 (35-45) mmHg ABG pO2 (80.0-100.0) mmH g ABG HCO3 (22-26) mmol/L ABG Base Excess (-2.0-2.0) mmol/ L Sukhwinder Test Hematocrit (37-47) % O2 Delivery Device Transmission Worker ID Sodium 133 L (136-145) mmol/L Potassium 4.3 (3.5-5.1) mmol/L Chloride 73 L (98-107) mmol/L Carbon Dioxide 44 H* (22-29) mmol/L Anion Gap 20.3 H (5-19) BUN 35 H (8-23) mg/dL Creatinine 2.7 H (0.5-0.9) mg/dL GFR Calculation Not Reportable Glucose 179 H (65-115) mg/dL Calculated Osmolal ity 288 (285-295) mOsm/k g Calcium 9.0 (8.5-10.5) mg/dL Magnesium 1.8 (1.7-2.3) mg/dL Total Bilirubin 0.5 (0.15-1.2) mg/dL AST 30 (0-32) U/L ALT 18 (0-33) U/L Alkaline Phosphata se 120 H (35-105) IU/L Troponin T Baselin e 38 H (0-10) ng/L Troponin T 120 Min [place] (0-10) ng/L Delta Troponin T (0-10) ABS# Total Protein 6.6 (6.6-8.7) g/dL Albumin 3.7 (3.5-5.2) g/dL Globulin 2.9 (1.3-4.6) g/dL 04/30/20 04/30/20 Range/Units 16:34 17:07 WBC (4.0-10.0) 10^3/ uL RBC (4.1-5.3) 10^6/u L Hgb (11.5-15.3) g/dL Hct (37.0-47.0) % MCV (81-99) fL MCH (28.0-34.0) pg MCHC (30.0-36.0) g/dL RDW (12.1-15.1) % Plt Count (130-400) 10^3/c mm MPV (7.4-10.4) fL Neut % (Auto) % Lymph % (Auto) % [place] % (Auto) % Eos % (Auto) % Baso % (Auto) % Neut # (Auto) (1.8-7.7) 10^3/u L Lymph # (Auto) (0.8-4.8) 10^3/u L [place] # (Auto) (0.2-0.9) 10^3/u L Eos # (Auto) (0.0-0.8) 10^3/u L Baso # (Auto) (0.0-0.1) 10^3/u L Nucleated RBC % (a uto) % Nucleated RBCs # /100WBC Specimen Type Arterial Sample Site Brachial, right ABG pH 7.61 H* (7.35-7.45) ABG pCO2 55.3 H (35-45) mmHg ABG pO2 71.2 L (80.0-100.0) mmH g ABG HCO3 55.0 H (22-26) mmol/L ABG Base Excess 29.9 H (-2.0-2.0) mmol/ L Sukhwinder Test Pos Hematocrit 30.6 L (37-47) % O2 Delivery Device Room air Transmission Worker ID jmn Sodium (136-145) mmol/L Potassium (3.5-5.1) mmol/L Chloride (98-107) mmol/L Carbon Dioxide (22-29) mmol/L Anion Gap (5-19) BUN (8-23) mg/dL Creatinine (0.5-0.9) mg/dL GFR Calculation Glucose (65-115) mg/dL Calculated Osmolal ity (285-295) mOsm/k g Calcium (8.5-10.5) mg/dL Magnesium (1.7-2.3) mg/dL Total Bilirubin (0.15-1.2) mg/dL AST (0-32) U/L ALT (0-33) U/L Alkaline Phosphata se (35-105) IU/L Troponin T Baselin e (0-10) ng/L Troponin T 120 Min [place] 38.33 H (0-10) ng/L Delta Troponin T 0.33 (0-10) ABS# Total Protein (6.6-8.7) g/dL Albumin (3.5-5.2) g/dL Globulin (1.3-4.6) g/dL Discharge Plan Discharge Patient Disposition: Placed in Observation Admit Provider: Cody Johns Clinical Impression: Hypokalemia, Arrhythmia Discharge Diet: Advance as tolerated Discharge Activity: Increase activity as tolerated Coding Level of Care Code ED Baling Machine Tender for Chg Fwd Exam Comprehensive
[2020-04-30 14:30] LABS: Alanine Aminotransferase 18 U/L (0-33); Albumin Level 3.7 g/dL (3.5-5.2); Alkaline Phosphatase 120 IU/L (35-105); Anion Gap 20.3 (5-19); Aspartate Amino Transferase 30 U/L (0-32); Blood Urea Nitrogen 35 mg/dL (8-23); Chloride 73 mmol/L (98-107); Globulin 2.9 g/dL (1.3-4.6); Glucose 179 mg/dL (65-115); Magnesium 1.8 mg/dL (1.7-2.3); Osmolality Calculated 288 mOsm/kg (285-295); Potassium 4.3 mmol/L (3.5-5.1); Sodium 133 mmol/L (136-145); Total Bilirubin 0.5 mg/dL (0.15-1.2); Total Protein 6.6 g/dL (6.6-8.7)
[2020-04-30 14:32] LABS: Troponin(5th) Baseline 38 ng/L (0-10)
[2020-04-30 14:33] LABS: Carbon Dioxide 44 mmol/L (22-29)
--- NOTE | 2020-04-30 14:47 | PC.PHAR ---
pt states she takes care of her own medications-pt states she has been out of her ultram and promethazine for 2 weeks- ultram hasnt been filled at [facility] or [facility] since 11/06/2019-pt states she thinks she is suppose to have a rx for kcl but states she has been buying it otc-pt states she takes gabapentin 300mg [facility] pharmacy last filled on 05/20/2019 for 300mg bid
[2020-04-30 14:50] LABS: Basophils # 0.1 10^3/uL (0.0-0.1); Basophils % 0.8 %; Eosinophils # 0.2 10^3/uL (0.0-0.8); Eosinophils % 2.7 %; Hematocrit 32.3 % (37.0-47.0); Hemoglobin 10.6 g/dL (11.5-15.3); Lymphocytes # 1.1 10^3/uL (0.8-4.8); Lymphocytes % 18.1 %; Mean Corpuscular HGB Conc 32.8 g/dL (30.0-36.0); Mean Corpuscular Hemoglobin 32.7 pg (28.0-34.0); Mean Corpuscular Volume 99.7 fL (81-99); Mean Platelet Volume 10.3 fL (7.4-10.4); Monocytes # 0.6 10^3/uL (0.2-0.9); Monocytes % 8.9 %; Neutrophils # 4.33 10^3/uL (1.8-7.7); Neutrophils % 68.9 %; Nucleated Red Blood Cells % 0 %; Platelet Count 369 10^3/cmm (130-400); Red Blood Count 3.24 10^6/uL (4.1-5.3); Red Cell Distribution Width 15.3 % (12.1-15.1); White Blood Count 6.3 10^3/uL (4.0-10.0)
--- NOTE | 2020-04-30 15:02 | XRR_ITS ---
PROCEDURE INFORMATION: Exam: XR Chest Exam date and time: 04/30/2020 3:20 PM Age: 70 years old Clinical indication: Cough and dyspnea; Additional info: Dyspnea/cough TECHNIQUE: Imaging protocol: XR of the chest Views: 1 view. Total images: 1 COMPARISON: CR XR chest 2V* [id number] 04/10/2020 2:48 PM FINDINGS: Tubes, catheters and devices: Right-sided Infusaport catheter. Lungs: No visible active interstitial or alveolar airspace disease. COPD/chronic bronchitis/emphysema. Minimal scar discoid atelectasis left lung base. Pleural spaces: Unremarkable. No pleural effusion. No pneumothorax. Heart/Mediastinum: Cardiac structures in configuration with arteriosclerosis. Bones/joints: Mild scoliotic curvature of the spine. Old right proximal humerus fracture with compression plate and screw fixation. XR/XR chest 1V portable [id number] IMPRESSION: Nonacute.
--- NOTE | 2020-04-30 15:55 | ECG_ITS ---
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 Measurements Intervals [place] Rate: 92 P: 78 MS: 143 QRS: 70 QRSD: 82 T: 80 QT: 379 QTc: 469 Interpretive Statements SINUS RHYTHM POSSIBLE RIGHT VENTRICULAR CONDUCTION DELAY [RSR (QR) IN V1/V2] Compared to ECG 04/30/2020 14:01:55 Indeterminate axis now present Electronically Signed On 04-30-2020 18:59:02 INFORMATION SERVICES TECH by Oswaldo Reynolds M.D. [id number]
[2020-04-30] MEDS: sodium chloride 0.9% 500 ML 999 ML IV (16:54)
--- NOTE | 2020-04-30 17:09 | PM.HP ---
Providers/Chief Complaint Primary Care Provider: Veda Gilman MD Chief Complaint: IRREGULAR CARDIAC RHYTHM History of Present Illness Janene Gallegos is a 70 year old female chronically ill, has a history of COVID-19, severe protein calorie malnutrition, chronic failure to thrive, has a history of port infection, new port placed for electrolyte transfusions for chronic hypokalemia, chronic hypomagnesemia, chronic hyponatremia, has chronic anemia, history of ulcerative colitis with colostomy and short gut syndrome, CKD stage III, CAD, history of sacral ulcer status post debridement, followed by wound clinic, history of open reduction internal fixation of acute right humeral neck fracture, history of open reduction internal fixation of left distal radial fracture, history of atrial fibrillation, CAD who presents to [facility] from her weekly potassium infusion, where she was found to have 45 to 2-minute beats of V. tach. Unfortunately the telemetry strips were lost, and could not be obtained. During the episode patient does report chest pain, palpitations, no shortness of breath, no loss of consciousness. Patients potassium was 2.7,, now 4.3, finishing off her potassium 80 mEq. Magnesium was 1.8. Phosphorus was 4.7. Calcium was 9.0. Baseline troponin was 38. Creatinine 2.7 currently she is alert oriented x3, answers all questions appropriate, no chest pain, no palpitations, shortness of breath, currently normal sinus rhythm, EKG no acute ST-T wave changes she tells me that she does have a CAD history, she had a mild heart attack Review of Systems Const: Denies: fever(s), chills, fatigue or malaise Eyes: Denies: change in vision or blurry vision ENMT: Denies: nasal congestion Card: Reports: chest pain and palpitations Resp: Denies: dyspnea, productive cough, non-productive cough or wheezing GI: Denies: abdominal pain, nausea, vomiting, hematemesis, diarrhea, constipation, hematochezia or melena : Denies: flank pain, dysuria or urinary frequency Musc: Denies: neck pain or back pain Skin/Breast: Denies: rash Neuro: Denies: headache(s), dizziness or vertigo Psych: Denies: anxiety or depression Endo: Denies: polyuria or polydipsia Medications/Allergies Home Medications Medication Instructions Recorded Confirmed Last Taken Type gabapentin See Rx Instructions .ROUTE .COMPLEX 11/23/19 04/30/20 03/13/20 History ibuprofen 400 mg PO PRN 04/04/20 04/30/20 04/02/20 History acetaminophen [Tylenol Extra 1,000 mg PO PRN 04/30/20 04/30/20 Unknown History Strength] albuterol sulfate [Ventolin HFA] 2 puff INHALATION Q4H PRN 04/30/20 04/30/20 Unknown History aspirin [Aspir-81] 162 mg PO BEDTIME 04/30/20 04/30/20 Unknown History atorvastatin 20 mg PO BEDTIME 04/30/20 04/30/20 04/29/20 History magnesium oxide 400 mg PO DAILY 04/30/20 04/30/20 Unknown History potassium gluconate 595 mg PO TID 04/30/20 04/30/20 Unknown History promethazine 25 mg PO QID PRN 04/30/20 04/30/20 Unknown History tramadol [Ultram] See Rx Instructions .ROUTE .COMPLEX 04/30/20 04/30/20 Unknown History Allergies Allergy/AdvReac Type Severity Reaction Status Date / Time amoxicillin Allergy ALGY-Hives Verified 04/30/20 13:55 cefazolin [From Ancef] Allergy ALGY-Rash Verified 04/30/20 13:55 cephalexin [From Keflex] Allergy ALGY-Rash Verified 04/30/20 13:55 codeine Allergy ALGY-Hives Verified 04/30/20 13:55 doxycycline Allergy ALGY-Hives Verified 04/30/20 13:55 erythromycin base Allergy ALGY-Hives Verified 04/30/20 13:55 [From E.E.S.] latex Allergy Unknown Verified 04/30/20 13:55 metoclopramide Allergy Unknown Verified 04/30/20 13:55 neomycin Allergy ALGY-Hives Verified 04/30/20 13:55 Penicillins Allergy ALGY-Hives Verified 04/30/20 13:55 polyethylene glycol Allergy ADR-Swelling Verified 04/30/20 13:55 of the Eye pregabalin [From Lyrica] Allergy ALGY-Swell Verified 04/30/20 13:55 Lip/Tongue/Throat prochlorperazine Allergy ALGY-Hives Verified 04/30/20 13:55 [From Compazine] propoxyphene [From Darvon] Allergy ALGY-Hives Verified 04/30/20 13:55 sapropterin Allergy ADR-Swelling Verified 04/30/20 13:55 [From Tetrahydrobiopterin of the Eye Di-HCL] scopolamine Allergy ALGY-Hives Verified 04/30/20 13:55 Sulfa (Sulfonamide Allergy ALGY-Hives Verified 04/30/20 13:55 Antibiotics) tegaserod [From Zelnorm] Allergy ALGY-Hives Verified 04/30/20 13:55 tetracycline Allergy ALGY-Hives Verified 04/30/20 13:55 tetrahydrozoline Allergy ADR-Swelling Verified 04/30/20 13:55 [From Visine] of the Eye PFSH Acute PFSH: Medical History (Updated 04/30/20 @ 17:37 by Cody Johns MD) Atrial fibrillation not chronic Chronic anemia Chronic kidney disease, stage III (moderate) COVID-19 (~10/2019) Crohn's disease s/p total colectomy with ileostomy Hyperaldosteronism Hypersomnia Hypokalemia chronically on IV infusions of potassium and magnesium Hypomagnesemia chronic Local infection due to Port-A-Cath Myocardial infarction (lateral wall) Osteoporosis Severe protein-calorie malnutrition Short gut syndrome Stage III pressure ulcer Systolic congestive heart failure Vitamin B2 deficiency Surgical History H/O ileostomy (~2002) H/O total colectomy (~2002) History of arthrodesis (08/03/18) right index finger History of delivery x4 History of hernia repair History of right hip replacement (~08/2019) Hx of appendectomy Port-A-Cath in place (10/12/19) right IJ Status post open reduction and internal fixation (ORIF) of fracture (12/22/19) left radius, Irina Status post open reduction and internal fixation (ORIF) of fracture (11/2019) right humerus, Irina Family History Other CAD (coronary artery disease) Cancer Congestive heart failure Diabetes Hyperlipidemia Social History Smoking and tobacco status: never smoked Second hand smoke exposure: No Alcohol intake: never Lives independently: Yes Household members: spouse Marital status: Current occupational status: retired History of recent travel: No Current gender identity: Female Vitals/I&O/Wt Last Vital Signs Temp 97.7 F 04/30/20 13:47 Pulse 85 04/30/20 16:54 Resp 14 04/30/20 16:54 BP 110/76 04/30/20 16:54 Pulse Ox 98 04/30/20 16:54 Weight last 48 hrs Weight 31.751 kg Physical Exam Const: COMMON NORMALS: no acute distress and patient oriented x3 GENERAL APPEARANCE: cooperative, comfortable and frail appearing NUTRITIONAL APPEARANCE: cachectic HENMT: COMMON NORMALS: normocephalic HEAD & SCALP: normocephalic Eye: COMMON NORMALS: Equal, round and reactive pupils present and EOMs intact bilaterally GENERAL EYE: appearance normal, both eyes and all related structures PUPIL: Yes Equal, round and reactive pupils present Neck/C-Spine: COMMON NORMALS: full ROM, no lymphadenopathy, no JVD and Thyroid normal THYROID: Thyroid normal Lymph: LYMPHATIC: no lymphadenopathy noted Chest: OTHER: Left chest port in place Resp: COMMON NORMALS: normal respiratory effort, No retractions, No use of accessory muscles and clear to auscultation bilaterally AUSCULTATION: clear to auscultation bilaterally Cardio: COMMON NORMALS: no JVD, regular rate, regular rhythm, S1 normal heart sound present, S2 normal heart sound present, No gallops present (Cardio), No clicks present (Cardio) and No murmurs present (Cardio) RATE: regular rate RHYTHM: regular rhythm HEART SOUNDS: S1 normal heart sound present and S2 normal heart sound present GI: COMMON NORMALS: Normal to inspection, nondistended, normoactive bowel sounds present, Soft to palpation, non-tender and No hepatosplenomegaly present PALPATION: Yes Soft to palpation and Yes No hepatosplenomegaly present Extremity: COMMON NORMALS: normal to inspection, full ROM and no pedal edema Neuro: COMMON NORMALS: patient oriented x3, CN's II-XII intact bilaterally, moves all extremities and no focal motor deficits Psych: COMMON NORMALS: mental status grossly normal, Normal thought process present and cooperative THOUGHT PROCESS: Normal thought process present Data : 04/30/20 14:02 04/30/20 14:02 A&P Assessment and plan (1) Ventricular tachycardia (paroxysmal): -I am unable to confirm if she had V. tach or not I do not have the stent strips available, the strips have been lost -She did have chest pain palpitations during the episode -This was during potassium infusion, potassium was 2.7 today, magnesium 1.8, creatinine, 2.7 -Baseline troponin 38 -EKG admission shows no acute ST-T wave changes, CT interval 155 ms QRS 81 ms, QTC 500 ms, sinus rhythm -Does have a CAD history, history of an NSTEMI's in the past, had a negative stress test in 2013, had an event monitor in 2013 which showed rare episodes A. fib, frequent ventricular arrhythmias in the form of isolated beats couplets, triplets, tachycardia ventricular arrhythmias were found to be symptomatic, no malignant arrhythmias -Patient's ABG shows a pH of 7.6 primary metabolic alkalosis with secondary respiratory alkalosis -Patient's bicarbs are chronically between 40 and 50, pH has been between 7.5 and 7.6 in the past PLAN: -Admit to CSU, needs telemetry monitoring -Serial EKGs, serial troponins -Her last echocardiogram showed an EF of 45%, diffuse wall motion abnormalities -We will repeat echocardiogram -Monitor for V. tach events, monitor for chest pain -Keep magnesium greater than 2, potassium replaced, Status: Acute (2) BMI less than 19,adult: Status: Chronic (3) Hypokalemia: Potassium 2.7, received replacement, continue to monitor Status: Acute (4) Severe protein-calorie malnutrition: BMI 12.8, chronic hypomagnesemia, hypokalemia, hyponatremia, hypochloremia due to short gut syndrome multiple surgeries after Crohn's disease, malabsorption Status: Chronic (5) Systolic congestive heart failure: Status: Chronic (6) Chronic kidney disease, stage III (moderate): Status: Chronic (7) Hypomagnesemia: Related to Crohn's disease Status: Acute (8) Hypercarbia: Status: Acute (9) Metabolic alkalosis: -Patient has acute on chronic metabolic alkalosis with acute on chronic respiratory alkalosis -Currently patient's bicarb is 44, chloride is 73 -She also has significant hypochloremia, 73 which is chronic -Anion gap 20.3, creatinine 2.7 -All indicate hypochloremia, dehydration, CKD as a significant source of metabolic alkalosis and secondary respiratory alkalosis, given her chronic BMI of 12.8, protein calorie malnutrition, short gut syndrome, Crohn's disease Plan: -Will hydrate with chloride salts Status: Acute (10) Chronic respiratory alkalosis: No complaints of shortness of breath Status: Acute (11) Hypochloremia: Status: Acute (12) LUIS ALFREDO (acute kidney injury): Will receive IV fluids Status: Acute Attestations Medical Necessity Statement*: Patient requires hospitalization, outpatient with observation, for ventricular tachycardia, chronic hypomagnesemia, chronic-hypokalemia, chronic hypochloremia, chronic metabolic alkalosis, chronic respiratory alkalosis, chronic hypercarbia, acute renal failure Coding Level of Care Code Acute Economic Development Director for g Fwd Diagnoses Ventricular tachycardia (paroxysmal) I47.2 BMI less than 19,adult Z68.1 Hypokalemia E87.6 Severe protein-calorie malnutrition E43 Systolic congestive heart failure I50.20 Chronic kidney disease, stage III (moderate) N18.3 Hypomagnesemia E83.42 Hypercarbia R06.89 Metabolic alkalosis E87.3 Chronic respiratory alkalosis E87.3 Hypochloremia E87.8 LIUS ALFREDO (acute kidney injury) N17.9
[2020-04-30 17:18] LABS: Blood Gas Allen Test Pos; Blood Gas Sample Site Brachial, right; Blood Gas Sample Type Arterial; Oxygen Device ROOM AIR
[2020-04-30 17:19] LABS: ABG PCO2 55.3 mmHg (35-45); Arterial Blood Gas Hematocrit 30.6 % (37-47); Base Excess ABG 29.9 mmol/L (-2.0-2.0); PO2 ABG 71.2 mmHg (80.0-100.0)
[2020-04-30 17:20] LABS: ABG PH Result 7.61 (7.35-7.45)
[2020-04-30 17:34] LABS: Troponin 5 2HR 38.33 ng/L (0-10); Troponin 5 2HR Delta 0.33 ABS# (0-10)
--- NOTE | 2020-04-30 19:55 | ECG_ITS ---
[facility] Test Date: 2020-04-30 Pat Name: Janene Gallegos Department: Room: 112 Gender: Female [employer]: : 1950 Requested By: Eusebio Gee Order Number: [id number] Reading MD: LUIS DUFFY Measurements Intervals [place] Rate: 81 P: 78 KS: 150 QRS: 63 QRSD: 83 T: 77 QT: 311 QTc: 363 Interpretive Statements SINUS RHYTHM NONSPECIFIC T-WAVE ABNORMALITY Compared to ECG 04/30/2020 16:06:17 T-wave abnormality now present Electronically Signed On 05-01-2020 20:03:30 NEON ELECTRICIAN by LUIS DUFFY [id number]
[2020-04-30 20:44] LABS: Troponin 5 6HR 34.06 ng/L (0-10)
[2020-04-30 20:57] LABS: Troponin 5 6HR Delta -3.94 ng/L (0-12)
[2020-04-30] MEDS: sodium chloride 0.9% 1,000 ML 125 ML IV (21:04)
[2020-04-30] MEDS: magnesium sulfate premix 2 GM/50 ML PIGGYBACK IV (21:08)
[2020-04-30] MEDS: aspirin 81 mg EC Tablet 162 MG PO (21:14)
[2020-04-30] MEDS: enoxaparin 40 mg/0.4 mL Syringe SUBCUT (21:14)
[2020-04-30] MEDS: gabapentin 300 mg Capsule PO (21:15)
[2020-05-01] VITALS (12 sets, daily range): BP systolic 91–111; BP diastolic 46–59; PULSE 70–99; RESP 12–19; TEMP 36.5–36.9; O2SAT 95–100
[2020-05-01] MEDS: sodium chloride 0.9% 1,000 ML 125 ML IV ×2 (04:49→11:52)
[2020-05-01 05:15] LABS: Basophils # 0.1 10^3/uL (0.0-0.1); Basophils % 0.8 %; Eosinophils # 0.4 10^3/uL (0.0-0.8); Eosinophils % 5.6 %; Hematocrit 28.2 % (37.0-47.0); Hemoglobin 8.9 g/dL (11.5-15.3); Lymphocytes # 1.3 10^3/uL (0.8-4.8); Lymphocytes % 20.3 %; Mean Corpuscular HGB Conc 31.6 g/dL (30.0-36.0); Mean Corpuscular Hemoglobin 31.7 pg (28.0-34.0); Mean Corpuscular Volume 100.4 fL (81-99); Mean Platelet Volume 10.8 fL (7.4-10.4); Monocytes # 0.6 10^3/uL (0.2-0.9); Monocytes % 9.1 %; Neutrophils # 4.08 10^3/uL (1.8-7.7); Neutrophils % 63.9 %; Nucleated Red Blood Cells % 0 %; Platelet Count 277 10^3/cmm (130-400); Red Blood Count 2.81 10^6/uL (4.1-5.3); Red Cell Distribution Width 15.2 % (12.1-15.1); White Blood Count 6.4 10^3/uL (4.0-10.0)
[2020-05-01 05:40] LABS: Alanine Aminotransferase 15 U/L (0-33); Alkaline Phosphatase 112 IU/L (35-105); Aspartate Amino Transferase 29 U/L (0-32); Blood Urea Nitrogen 31 mg/dL (8-23); Calcium 8.9 mg/dL (8.5-10.5); Carbon Dioxide 38 mmol/L (22-29); Chloride 84 mmol/L (98-107); Globulin 3.1 g/dL (1.3-4.6); Glucose 102 mg/dL (65-115); Magnesium 2.6 mg/dL (1.7-2.3); Osmolality Calculated 289 mOsm/kg (285-295); Sodium 136 mmol/L (136-145); Total Bilirubin 0.3 mg/dL (0.15-1.2); Total Protein 6.1 g/dL (6.6-8.7)
[2020-05-01 05:46] LABS: ABG PCO2 56.9 mmHg (35-45); Base Excess ABG 18.3 mmol/L (-2.0-2.0); Blood Gas Allen Test Pos; Blood Gas Sample Site Radial, left; Blood Gas Sample Type Arterial; HCO3 ABG 43.9 mmol/L (22-26); Oxygen Device ROOM AIR; PO2 ABG 73.7 mmHg (80.0-100.0)
--- NOTE | 2020-05-01 06:00 | ECG_ITS ---
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
[2020-05-01 06:19] LABS: Phosphorus 2.8 mg/dL (2.5-4.5)
[2020-05-01 06:21] LABS: Anion Gap 16.6 (5-19); Potassium 2.6 mmol/L (3.5-5.1)
[2020-05-01] MEDS: potassium chloride premix 100 ML 25 MEQ IV ×2 (06:48→11:41)
[2020-05-01] MEDS: gabapentin 300 mg Capsule PO ×2 (09:26→18:43)
[2020-05-01] MEDS: magnesium oxide 400 mg tablet PO (09:26)
--- NOTE | 2020-05-01 09:33 | PC.CHAP ---
Pastoral Care Encounter/Spiritual Assessment Type of Contact [] Declined quality assurance monitor final visit [] Patient/Family/Request visit [] Outpatient visit [] Follow-up visit [] Physician referral [] Code/Alert []x Routine visit [] Staff referral [] Actively dying [x] Patient sleeping [] Family support [] [] Out of room [] Palliative care [] [] Receiving care in room [] Pre-surgical visit [] Trauma [] Long length of stay [] ICU visit [] Other: Relational/Emotional Strength [] Patient feels connected with others/family/visitors/staff [] Distress [] Loneliness/isolation [] Abandonment Spirituality of Patient [] Person of Winter [] Attends Muslim of their Winter [] Believes in Prayer [] Reads Bible or Mosque materials [] There are Spiritual issues to be addressed Airplane Flight Attendant Supervisor Interventions [x] Prayer [] Active listening [] Non-anxious presence [] Spiritual/emotional support [] Crisis/trauma care [] Spiritual counseling [] Bereavement support [] Provided bereavement packet [] Provided Bible/devotional materials [] Provided toy/stuffed animal, coloring book to patient or family member [] Provided Communion [] Anointing/Velma [] Salvation [] Completed spiritual assessment [] Other: Impact on Illness or Injury [] Angry [] Fearful [] Anxious [] Often cries [] Exhaustion [] Unable to work [] Unable to attend oriental orthodox [] Unable to walk/stand [] Unable to read [] Unable to drive [] Unable to eat/drink [] Unable to sleep [] Unable to be with family [] Patient intubated [] Other: Summary Time spent with patient
--- NOTE | 2020-05-01 15:43 | PM.PN ---
Subjective Subjective: Interval history: Patient denies any complaints this morning. Denies shortness of breath or chest pain. Denies abdominal pain. Reports that at home she does not take any potassium pills as it does not help her as she has short gut syndrome and cannot absorb it. Reports that she gets potassium infusion every week. Reports that she used to be on spironolactone but not anymore as again she did not notice any improvement. Her potassium again decreased to 2.6. Patient is on normal saline at 125 mill per hour. Vitals/I&O/Wt Last Vital Signs Temp 98.1 F 05/01/20 12:00 Pulse 81 05/01/20 14:00 Resp 15 05/01/20 12:00 BP 106/54 05/01/20 12:00 Pulse Ox 100 05/01/20 12:00 05/01/20 05/01/20 05/01/20 06:59 14:59 22:59 Intake Total 2203.75 / 3753.75 2096.25 / 2096.25 Balance 2203.75 / 3753.75 2096.25 / 2096.25 Weight last 48 hrs Weight 31.751 kg Physical Exam Narrative: EXAM NARRATIVE: Lungs are clear and heart is regular. Abdomen is soft and nontender with positive bowel sounds. Ostomy is functioning. Data : 05/01/20 04:21 05/01/20 04:21 A&P Assessment and plan (1) Ventricular tachycardia (paroxysmal): -I am unable to confirm if she had V. tach or not I do not have the stent strips available, the strips have been lost -She did have chest pain palpitations during the episode -This was during potassium infusion, potassium was 2.7 today, magnesium 1.8, creatinine, 2.7 -Baseline troponin 38 -EKG admission shows no acute ST-T wave changes, CA interval 155 ms QRS 81 ms, QTC 500 ms, sinus rhythm -Does have a CAD history, history of an NSTEMI's in the past, had a negative stress test in 2013, had an event monitor in 2013 which showed rare episodes A. fib, frequent ventricular arrhythmias in the form of isolated beats couplets, triplets, tachycardia ventricular arrhythmias were found to be symptomatic, no malignant arrhythmias -Patient's ABG shows a pH of 7.6 primary metabolic alkalosis with secondary respiratory alkalosis -Patient's bicarbs are chronically between 40 and 50, pH has been between 7.5 and 7.6 in the past PLAN: -Admit to CSU, needs telemetry monitoring -Serial EKGs, serial troponins -Her last echocardiogram showed an EF of 45%, diffuse wall motion abnormalities -We will repeat echocardiogram -Monitor for V. tach events, monitor for chest pain -Keep magnesium greater than 2, potassium replaced, Status: Acute (2) BMI less than 19,adult: Status: Chronic (3) Hypokalemia: Potassium 2.7, received replacement, continue to monitor Status: Acute (4) Severe protein-calorie malnutrition: BMI 12.8, chronic hypomagnesemia, hypokalemia, hyponatremia, hypochloremia due to short gut syndrome multiple surgeries after Crohn's disease, malabsorption Status: Chronic (5) Systolic congestive heart failure: Status: Chronic (6) Chronic kidney disease, stage III (moderate): Status: Chronic (7) Hypomagnesemia: Related to Crohn's disease Status: Acute (8) Hypercarbia: Status: Acute (9) Metabolic alkalosis: -Patient has acute on chronic metabolic alkalosis with acute on chronic respiratory alkalosis -Currently patient's bicarb is 44, chloride is 73 -She also has significant hypochloremia, 73 which is chronic -Anion gap 20.3, creatinine 2.7 -All indicate hypochloremia, dehydration, CKD as a significant source of metabolic alkalosis and secondary respiratory alkalosis, given her chronic BMI of 12.8, protein calorie malnutrition, short gut syndrome, Crohn's disease Plan: -Will hydrate with chloride salts Status: Acute (10) Chronic respiratory alkalosis: No complaints of shortness of breath Status: Acute (11) Hypochloremia: Status: Acute (12) LUIS ALFREDO (acute kidney injury): [place] unlikely. Patient appears to have chronic kidney disease stage III Status: Acute Additional A&P Information PLAN: We will give patient total of 160 mEq of potassium IV with lidocaine. Discontinue IV fluids We will try spironolactone again while hospitalized. Consider triamterene upon discharge. Patient is asking for more food and this will be provided. Plan to replete electrolytes and discharge patient home tomorrow morning. Attestations Medical Necessity Statement*: Patient with severe electrolyte abnormality requires close inpatient monitoring and treatment until deemed safe for discharge. Coding Level of Care Code Acute Senior Consultant for Chg Fwd Diagnoses Ventricular tachycardia (paroxysmal) I47.2 BMI less than 19,adult Z68.1 Hypokalemia E87.6 Severe protein-calorie malnutrition E43 Systolic congestive heart failure I50.20 Chronic kidney disease, stage III (moderate) N18.3 Hypomagnesemia E83.42 Hypercarbia R06.89 Metabolic alkalosis E87.3 Chronic respiratory alkalosis E87.3 Hypochloremia E87.8 LUIS ALFREDO (acute kidney injury) N17.9
[2020-05-01] MEDS: lidocaine 1% 5 ML in potassium chloride premix 100 ML 25 ML IV ×2 (17:01→21:39)
[2020-05-01] MEDS: acetaminophen 325 mg Tablet 650 MG PO (18:42)
[2020-05-01] MEDS: spironolactone 25 mg Tablet PO (18:42)
--- NOTE | 2020-05-01 20:04 | USCV_ITS ---
Janene Gallegos Age: 70 Gender: F : 1950 Exam Date: 05/01/2020 07:25 Ordering Phys: Cody Johns MD Technologist: Gilberto Lopez [place] [facility] [place]: [place]ACH BP: 106 / 54 HR: Rhythm: Sinus Technical Quality: Fair MEASUREMENTS (Male / Female) Normal Values 2D ECHO LV Diastolic Diameter PLAX 3.4 cm 4.2 - 5.9 / 3.9 - 5.3 cm LV Systolic Diameter PLAX 2.1 cm IVS Diastolic Thickness 0.7 cm 0.6 - 1.0 / 0.6 - 0.9 cm IVS Systolic Thickness 1.0 cm LVPW Diastolic Thickness 0.7 cm 0.6 - 1.0 / 0.6 - 0.9 cm LVPW Systolic Thickness 1.1 cm LVOT Diameter 2.0 cm LV Ejection Fraction 2D Teich 67.9 % LV Ejection Fraction MOD 2C 55.2 % LV Ejection Fraction 2C AL 55.4 % LA Diameter 2.3 cm LA Width 3.0 cm LA Height 4.0 cm RA Width 3.3 cm RA Height 3.7 cm M-MODE LV Diastolic Diameter MM 3.4 cm 4.2 - 5.9 / 3.9 - 5.3 cm LV Systolic Diameter MM 2.2 cm LV Ejection Fraction MM Teich 63.6 % IVS Diastolic Thickness MM 0.6 cm 0.6 - 1.0 / 0.6 - 0.9 cm IVS Systolic Thickness MM 1.0 cm LVPW Diastolic Thickness MM 0.9 cm 0.6 - 1.0 / 0.6 - 0.9 cm LVPW Systolic Thickness MM 1.2 cm RV Diastolic Diameter MM 1.5 cm Aortic Annulus Diameter 2.9 cm LA Ao Ratio MM 0.9 MV E Point Septal Separation 0.5 cm DOPPLER AV Peak Velocity 146.0 cm/s LVOT Peak Velocity 86.0 cm/s AV Area Cont Eq vti 1.8 cm squared AV Area Cont Eq pk 1.9 cm squared MV Area PHT 5.0 cm squared Mitral E to A Ratio 1.2 MV E' Velocity 43.5 cm/s Mitral E to MV E' Ratio 8.4 Mitral E to LV E' Lateral Ratio 9.6 Mitral E to LV E' Septal Ratio 7.4 TR Peak Velocity 208.3 cm/s TR Peak Gradient 17.4 mmHg TV Peak E Velocity 108.0 cm/s Right Atrial Pressure 3.0 mmHg Pulmonary Artery Systolic Pressu 20.4 mmHg FINDINGS Left Ventricle Normal left ventricular size and systolic function, EF 63 %. No regional wall motion abnormalities. Grade I/IV diastolic dysfunction (abnormal relaxation filling pattern), normal to mildly elevated filling pressures. Technically difficult study because of the poor apical windows Right Ventricle The right ventricle is normal in size and function. Right Atrium The right atrium is normal in size. Left Atrium The left atrium is normal in size. Mitral Valve Thickened mitral valve. Aortic Valve No Gross abnormalities noted Tricuspid Valve Trace tricuspid valve regurgitation. Pulmonic Valve No gross abnormalities noted Pericardium Normal pericardium without effusion. Aorta Normal ascending aorta dimension. CONCLUSIONS Normal left ventricular size and systolic function, EF 63 %. No regional wall motion abnormalities. Grade I/IV diastolic dysfunction (abnormal relaxation filling pattern), normal to mildly elevated filling pressures. Thickened mitral valve. Trace tricuspid valve regurgitation. Estimated pulmonary artery peak systolic pressure of 20 mmHg Technically difficult study because of the poor apical windows. Compared to the previous study from 11/24/2019, there may not be a significant change Dr Blue Rios MD [facility] (Electronically Signed) Final Date: 02 May 2020 06:00 S
[2020-05-01] MEDS: aspirin 81 mg EC Tablet 162 MG PO (21:38)
[2020-05-01] MEDS: enoxaparin 30 mg/0.3 mL Syringe SUBCUT (21:42)
[2020-05-02] MEDS: lidocaine 1% 5 ML in potassium chloride premix 100 ML 25 ML IV (02:20)
[2020-05-02] MEDS: acetaminophen 325 mg Tablet 650 MG PO (03:13)
[2020-05-02 03:28] VITALS: BP 102/56; PULSE 83; RESP 14; TEMP 36.7; O2SAT 97
--- NOTE | 2020-05-02 04:58 | PC.RESP ---
Educated pt that the Doctor had placed an order for an arterial blood gas in the am. Pt agreed to the blood gas, however, while obtaining the blood gas, pt pulled her arm away from me, and it pulled the needle out of the pt's arm. Pt refused to have me try again to get the abg sample.
[2020-05-02 05:41] LABS: Anion Gap 13.2 (5-19); Blood Urea Nitrogen 20 mg/dL (8-23); Calcium 9.5 mg/dL (8.5-10.5); Carbon Dioxide 36 mmol/L (22-29); Chloride 92 mmol/L (98-107); Glucose 86 mg/dL (65-115); Magnesium 1.9 mg/dL (1.7-2.3); Osmolality Calculated 284 mOsm/kg (285-295); Potassium 5.2 mmol/L (3.5-5.1); Sodium 136 mmol/L (136-145)
--- NOTE | 2020-05-02 05:50 | PC.NURSE ---
notified Dr Dorsey of pt having vtach runs, received orders for bmp and mg level, then later notified Dr Dorsey of lab results, K 5.2, Mg 1.9 received order to hold K-rider and given 1 gm Mg IV
[2020-05-02 05:56] LABS: Phosphorus 1.7 mg/dL (2.5-4.5)
[2020-05-02 06:00] VITALS: PULSE 90
--- NOTE | 2020-05-02 06:00 | ECG_ITS ---
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 Measurements Intervals [place] Rate: 83 P: IN: QRS: 33 QRSD: 68 T: 31 QT: 345 QTc: 406 Interpretive Statements Normal sinus rhythm PROBABLE SEPTAL MYOCARDIAL INFARCTION [35 ms Q WAVE IN V1/V2], OF INDETERMINATE AGE Compared to ECG 05/01/2020 05:41:07 Myocardial infarct finding now present T-wave abnormality no longer present Electronically Signed On 05-02-2020 20:59:13 FRONT DESK ADMINISTRATOR by Blue Rios M.D. [id number]
[2020-05-02 07:34] VITALS: BP 98/54; PULSE 86; RESP 12; TEMP 36.4; O2SAT 99
[2020-05-02] MEDS: magnesium sulfate premix 2 GM/50 ML PIGGYBACK IV (09:49)
[2020-05-02] MEDS: spironolactone 25 mg Tablet PO (09:50)
[2020-05-02] MEDS: magnesium oxide 400 mg tablet PO (09:50)
[2020-05-02] MEDS: gabapentin 300 mg Capsule PO (09:50)
[2020-05-02 11:00] VITALS: BP 105/60; PULSE 92; RESP 18; TEMP 36.7; O2SAT 99
--- NOTE | 2020-05-02 11:21 | P.DS_ITS ---
Discharge Providers Date of Admission: 04/30/20 20:04 Date of Discharge: May 02, 2020 Attending Provider at Admission: Cody Johns MD Attending Provider at Discharge: Jeb Montenegro MD Primary Care Provider: Veda Gilman MD Diagnoses at Discharge Discharge Diagnosis (1) Ventricular tachycardia (paroxysmal): Status: Acute (2) BMI less than 19,adult: Status: Chronic (3) Hypokalemia: Status: Acute Permanent problem details: chronically on IV infusions of potassium and magnesium (4) Severe protein-calorie malnutrition: Status: Chronic (5) Systolic congestive heart failure: Status: Chronic (6) Chronic kidney disease, stage III (moderate): Status: Chronic (7) Hypomagnesemia: Status: Acute Permanent problem details: chronic (8) Hypercarbia: Status: Acute (9) Metabolic alkalosis: Status: Acute (10) Chronic respiratory alkalosis: Status: Acute (11) Hypochloremia: Status: Acute (12) LUIS ALFREDO (acute kidney injury): Status: Acute Reason for Visit Reason for Visit: IRREGULAR CARDIAC RHYTHM Hospital Course Hospital Course Patient with short bowel syndrome and severe electrolyte abnormality had what appeared to be short run of ventricular tachycardia which felt to be related to severe electrolyte abnormality. Patient was monitored and her electrolytes were repleted. She remained in sinus rhythm and had no more episodes of concerning rhythm. This morning patient denies any shortness of breath or chest pain. Reports that she feels much better and wants to go home. Patient presents back weekly for electrolyte infusions. I will request outpatient follow-up with cardiology. Unfortunately we cannot attach event monitor until 10 April. I will request outpatient follow-up with Dr. Reynolds within next week. Patient was started on spironolactone in addition to her oral potassium and hopefully this can keep her potassium in a safer range. Physical Exam Narrative: EXAM NARRATIVE: Lungs are clear and heart is regular. No lower extremity edema. Abdomen is soft and nontender with positive bowel sounds. Ostomy is functioning. Discharge Data Data Completed and Pending: Completed Studies During Hospitalization Category Date Time Status XR chest 1V awilda ble [id number] Stat Exams 04/30/20 15:02 Completed CV echo complete* [id number] Routine Ultrasound 05/01/20 20:04 Completed Pending at discharge Category Date Time Status Arterial Blood Ga s W/O Coox AM LABS Lab 05/03/20 04:00 Ordered Phosphorus AM LAB S Lab 05/03/20 04:00 Ordered Labs from last 24 hours 05/02/20 05/02/20 04:14 04:14 Sodium 136 Potassium 5.2 H Chloride 92 L Carbon Dioxide 36 H Anion Gap 13.2 BUN 20 Creatinine 1.7 H GFR Calculation Not Reportable Glucose 86 Calculated Osmolal ity 284 L Calcium 9.5 Phosphorus 1.7 L Magnesium 1.9 Vitals: Last Vital Signs Temp 98.0 F 05/02/20 11:00 Pulse 92 05/02/20 11:00 Resp 18 05/02/20 11:00 BP 105/60 05/02/20 11:00 Pulse Ox 99 05/02/20 11:00 Discharge Plan Discharge Patient Disposition: Home Condition: Stable Prescriptions: New spironolactone 25 mg Tablet 25 mg PO BID Qty: 60 RF: 0 Continued gabapentin 300 mg capsule See Rx Instructions .ROUTE .COMPLEX RF: 0 atorvastatin 20 mg tablet 20 mg PO BEDTIME RF: 0 Aspir-81 81 mg Tablet,Delayed Release (Dr/Ec) 162 mg PO BEDTIME RF: 0 Tylenol Extra Strength 500 mg Tablet 1,000 mg PO PRN RF: 0 promethazine 25 mg Tablet 25 mg PO QID PRN (Reason: Nausea) RF: 0 Ventolin HFA 90 mcg/actuation Hfa Aerosol Inhaler 2 puff INHALATION Q4H PRN (Reason: Shortness Of Breath) RF: 0 potassium gluconate 595 mg (99 mg) Tablet 595 mg PO TID RF: 0 magnesium oxide 400 mg (241.3 mg magnesium) tablet 400 mg PO DAILY RF: 0 Discontinued ibuprofen 400 mg Tablet 400 mg PO PRN RF: 0 Discharge Orders: Discharge Order (Routine); Ordered 05/02/20 Ordered By: Jeb Montenegro Referrals: Oswaldo Reynolds M.D [Physician] - 1 week Veda Gilman MD [Primary Care Provider] - 4-7 days Discharge Diet: Advance as tolerated Discharge Activity: Increase activity as tolerated Activity Restrictions/Additional Instructions: Please call your doctor or present to emergency department if your condition worsens or you develop diarrhea, lightheadedness, fatigue or see blood in your stool or black stool. Please present back to emergency department if you experience heart palpitations. Discharge Attestations Time Spent in Discharge Care*: greater than 30 min Quality Metrics Clinical Quality Measures During this hospital stay, did patient experience: None Coding Level of Care Code Acute Pest Control Service Sales Agent for Chg Fwd Diagnoses Ventricular tachycardia (paroxysmal) I47.2 BMI less than 19,adult Z68.1 Hypokalemia E87.6 Severe protein-calorie malnutrition E43 Systolic congestive heart failure I50.20 Chronic kidney disease, stage III (moderate) N18.3 Hypomagnesemia E83.42 Hypercarbia R06.89 Metabolic alkalosis E87.3 Chronic respiratory alkalosis E87.3 Hypochloremia E87.8 LUIS ALFREDO (acute kidney injury) N17.9
[2020-05-02 11:53] VITALS: BP 105/60; PULSE 92; RESP 18; TEMP 36.7; O2SAT 99
--- NOTE | 2020-05-02 12:18 | PC.NURSE ---
Pt discharge home. Port a cath removed and drsg in place. No redness or swelling noted. Pts discharge instructions given along with prescriptions and follow up appointment. Pt had no c/o pain or discomfort at the time of discharge. Pt requested to ambulate from facility.
== END 2020-05-02 12:17 | disposition home or self-care (01) ==
LOC: ER 17:38 → CSU 19:26
PROVIDERS: Internal Medicine; Admitting Provider Family Medicine; Emergency Provider Family Medicine; PCP Family Medicine; Visit Provider Internal Medicine
DX: I47.2 Ventricular tachycardia (principal); E87.6 Hypokalemia; E43 Unspecified severe protein-calorie malnutrition; N18.30 Chronic kidney disease, stage 3 unspecified; I50.20 Unspecified systolic (congestive) heart failure; E83.42 Hypomagnesemia; R06.89 Other abnormalities of breathing; E87.3 Alkalosis; E87.8 Other disorders of electrolyte and fluid balance, not elsewhere classified; N17.9 Acute kidney failure, unspecified; Z68.1 Body mass index [BMI] 19.9 or less, adult; Z86.16 Personal history of COVID-19; M81.0 Age-related osteoporosis without current pathological fracture
CPT/HCPCS: 36415; 36591; 36600; 71045; 80048; 80053; 82803; 83735; 84100; 84484; 85025; 90471; 90686; 93005; 93306; G0378; J1642; J1650; J3475; J3480; J7030; J7040

== ENCOUNTER 2020-05-08 13:48 | Outpatient (CLI) | payer MEDICARE, SELFPAY | END 2020-05-08 13:49 | disposition home or self-care (01) | LOC: SPT 13:49 | PROVIDERS: PCP Family Medicine; Visit Provider Orthopaedic Surgery | DX: Z46.89 Encounter for fitting and adjustment of other specified devices (principal); M18.12 Unilateral primary osteoarthritis of first carpometacarpal joint, left hand | CPT/HCPCS: L3924 ==

== ENCOUNTER 2020-05-09 09:18 | Outpatient (RCR) | payer MEDICARE, SELFPAY ==
[2020-04-30] MEDS: potassium chloride premix 100 ML 25 MEQ IV (10:30)
[2020-04-30 10:36] VITALS: BMI 12.8
[2020-04-30 10:38] VITALS: BP 99/62; PULSE 82; RESP 17; TEMP 36.3; O2SAT 96
[2020-04-30 11:38] LABS: Albumin Level 3.7 g/dL (3.5-5.2); Blood Urea Nitrogen 36 mg/dL (8-23); Calcium 9.4 mg/dL (8.5-10.5); Chloride 71 mmol/L (98-107); Glucose 92 mg/dL (65-115); Magnesium 1.8 mg/dL (1.7-2.3); Osmolality Calculated 288 mOsm/kg (285-295); Phosphorus 4.6 mg/dL (2.5-4.5); Sodium 135 mmol/L (136-145)
[2020-04-30 12:11] LABS: Potassium 2.7 mmol/L (3.5-5.1)
[2020-04-30 12:12] LABS: Anion Gap 14.7 (5-19); Carbon Dioxide > 52 mmol/L (22-29)
[2020-04-30] MEDS: potassium chloride premix 100 ML 37.5 MEQ IV (13:15)
--- NOTE | 2020-04-30 17:29 | PC.NURSE ---
AT APPROXIMATELY 1340 THE ALARM SOUNDED ON THE NIHON KOHDEN MACHINE INDICATING THAT PATIENT WAS IN V TACH. THIS NURSE ENTERED THE PATIENT'S ROOM TO FIND THE PATIENT GROANING AND CLUTCHING HER CHEST. THIS NURSE IMMEDIATELY STOPPED THE POTASSIUM INFUSION. THE PATIENT STARTED TO GET OUT OF BED STATING SHE HAD TO USE THE RESTROOM AND THIS NURSE HAD HER LAY BACK IN BED AT WHICH POINT THE PATIENT BEGAN VOMITING. SHE VOMITED APPROXIMATELY 3 TIMES BEFORE LAYING BACK IN BED. PATIENT REFUSED TO NOT USE RESTROOM SO THIS NURSE BROUGHT A BEDSIDE COMMODE FOR THE PATIENT TO USE THE RESTROOM. WITH A NURSE AT BEDSIDE THIS NURSE LEFT THE ROOM AND CALLED THE ER TO LET THEM KNOW WE WOULD BE BRINGING THE PATIENT DOWN. DR COLLAZO ANESTHESIA ENTERED ROOM AND STATED SHE AGREED THAT THE PATIENT NEEDED TO BE SENT TO THE ER. THIS NURSE IS UNSURE OF THE LENGTH OF TIME THE VTACH EVENT OCCURED BUT APPROXIMATELY 30 SECONDS. PATIENT WAS TAKEN TO ER AND BEDSIDE REPORT WAS GIVEN TO JAEL SEPULVEDA.
[2020-05-09 09:25] VITALS: BP 121/63; PULSE 89; RESP 18; TEMP 36.9; O2SAT 97
[2020-05-09] MEDS: potassium chloride premix 100 ML 37.5 MEQ IV ×2 (09:57→12:36)
--- NOTE | 2020-05-09 10:11 | PC.NURSE ---
Pt to GI lab for weekly IV potassium infusion. Pt alert and oriented. VSS. Port to right chest accessed per protocol. Infusion started without difficulty. Pt on telemetry with NSR noted. VSS.
[2020-05-09 10:34] LABS: Albumin Level 3.9 g/dL (3.5-5.2); Anion Gap 14.2 (5-19); Blood Urea Nitrogen 22 mg/dL (8-23); Calcium 9.3 mg/dL (8.5-10.5); Chloride 73 mmol/L (98-107); Glucose 101 mg/dL (65-115); Magnesium 1.5 mg/dL (1.7-2.3); Osmolality Calculated 279 mOsm/kg (285-295); Phosphorus 3.8 mg/dL (2.5-4.5); Sodium 133 mmol/L (136-145)
[2020-05-09 10:43] LABS: Carbon Dioxide 48 mmol/L (22-29); Potassium 2.2 mmol/L (3.5-5.1)
[2020-05-09] MEDS: magnesium sulfate premix 2 GM/50 ML PIGGYBACK IV (11:17)
--- NOTE | 2020-05-09 12:37 | PC.NURSE ---
Potassium level 2.2 and Magnesium level of 1.5 noted. Magnesium infused as ordered. Pt tolerated well. Second bag of Potassium 40 mEq infusing. No changes in rhythm noted. Pt remains in NSR with rate of 100. VSS. Pt ate lunch and denies N/V. Sitting up in chair reading. Call light within reach.
--- NOTE | 2020-05-16 08:37 | PC.NURSE ---
Called patient and she will not be coming to infusion today. She stated we will move her to next week. Relayed message to charge nurse, Niki. Reoccurring orders canceled in chart. Pt stated she will call with any changes.
== END 2020-05-30 23:59 | disposition home or self-care (01) ==
LOC: GILAB 09:18
PROVIDERS: PCP Family Medicine; Visit Provider Family Medicine
DX: E87.6 Hypokalemia (principal); E83.42 Hypomagnesemia
CPT/HCPCS: 36591; 36592; 80048; 80069; 83735; 96365; 96366; 96367; J3475; J3480

== ENCOUNTER 2020-05-30 08:11 | Outpatient (RCR) | payer MEDICARE, SELFPAY ==
[2020-05-30 08:25] VITALS: BP 119/60; PULSE 78; RESP 18; TEMP 36.2; O2SAT 99; BMI 13.7
[2020-05-30] MEDS: potassium chloride premix 100 ML 25 MEQ IV (08:45)
[2020-05-30 09:02] LABS: Albumin Level 3.6 g/dL (3.5-5.2); Anion Gap 9.8 (5-19); Blood Urea Nitrogen 24 mg/dL (8-23); Chloride 66 mmol/L (98-107); Glucose 99 mg/dL (65-115); Osmolality Calculated 256 mOsm/kg (285-295); Phosphorus 1.7 mg/dL (2.5-4.5); Sodium 121 mmol/L (136-145)
[2020-05-30 10:02] LABS: Carbon Dioxide 47 mmol/L (22-29); Potassium 1.8 mmol/L (3.5-5.1)
[2020-05-30] MEDS: magnesium sulfate premix 2 GM/50 ML PIGGYBACK IV (10:45)
[2020-05-30] MEDS: potassium chloride premix 100 ML 37.5 MEQ IV (11:26)
== END 2020-05-30 23:59 | disposition home or self-care (01) ==
LOC: OPS 08:11
PROVIDERS: PCP Family Medicine; Visit Provider Family Medicine
DX: E87.6 Hypokalemia (principal)
CPT/HCPCS: 36591; 80048; 80069; 83735; 96365; 96366; 96367; 96368; J3475; J3480

== ENCOUNTER 2020-06-08 08:18 | Outpatient (RCR) | payer MEDICARE, SELFPAY ==
[2020-06-08] MEDS: potassium chloride premix 100 ML 25 MEQ IV (08:41)
[2020-06-08 08:56] LABS: Albumin Level 3.5 g/dL (3.5-5.2); Anion Gap 16.4 (5-19); Blood Urea Nitrogen 35 mg/dL (8-23); Calcium 9.3 mg/dL (8.5-10.5); Carbon Dioxide 39 mmol/L (22-29); Chloride 74 mmol/L (98-107); Glucose 162 mg/dL (65-115); Magnesium 1.4 mg/dL (1.7-2.3); Osmolality Calculated 276 mOsm/kg (285-295); Phosphorus 2.6 mg/dL (2.5-4.5); Sodium 127 mmol/L (136-145)
[2020-06-08 08:59] LABS: Potassium 2.4 mmol/L (3.5-5.1)
[2020-06-08] MEDS: magnesium sulfate premix 2 GM/50 ML PIGGYBACK IV (09:18)
[2020-06-08 09:34] VITALS: BP 114/55; PULSE 95; RESP 18; TEMP 37.1; O2SAT 99
[2020-06-08] MEDS: potassium chloride premix 100 ML 37.5 MEQ IV (11:20)
== END 2020-06-29 23:59 | disposition home or self-care (01) ==
LOC: GILAB 08:18
PROVIDERS: PCP Family Medicine; Visit Provider Family Medicine
DX: E87.6 Hypokalemia (principal); E83.42 Hypomagnesemia
CPT/HCPCS: 36591; 80048; 80069; 83735; 96365; 96366; J3475; J3480

== ENCOUNTER → 2020-07-20 08:37 | Day surgery (SDC) | payer MEDICARE, SELFPAY ==
--- NOTE | 2020-07-20 08:22 | SUR.PREOP ---
patient no showed for 0800 07/20/20 scheduled appointment. Called evin [facility] number [phone]-no answer, called evin [facility] [phone]-not a working number, called [facility] [phone]-no answer, called [facility] [phone]-not a working number. cancelled orders in [facility]
[2020-07-20] MEDS: potassium chloride premix 100 ML 37.5 MEQ IV ×2 (09:14→11:26)
[2020-07-20 09:44] LABS: Albumin Level 3.1 g/dL (3.5-5.2); Blood Urea Nitrogen 18 mg/dL (8-23); Calcium 7.5 mg/dL (8.5-10.5); Chloride 87 mmol/L (98-107); Glucose 97 mg/dL (65-115); Magnesium 1.1 mg/dL (1.7-2.3); Phosphorus 2.2 mg/dL (2.5-4.5); Sodium 137 mmol/L (136-145)
[2020-07-20 09:47] LABS: Carbon Dioxide 41 mmol/L (22-29)
[2020-07-20] MEDS: magnesium sulfate premix 2 GM/50 ML PIGGYBACK IV (12:30)
--- NOTE | 2020-07-20 12:42 | SUR.PREOP ---
[facility]20[phone]
[2020-07-20 12:46] LABS: Urine Creatinine 121 mg/dL (28-217)
[2020-07-20 12:47] VITALS: PULSE 108; RESP 18; TEMP 36.1; O2SAT 95; BMI 12.8
[2020-07-20 12:47] LABS: Creatinine 24 Hour Urine 695.8 mg/dL (601-1689); Total Volume Urine 575 ml
== END ==
LOC: GILAB 08:38
PROVIDERS: PCP Family Medicine; Visit Provider Family Medicine
DX: E87.6 Hypokalemia (principal); E83.42 Hypomagnesemia
CPT/HCPCS: 80069; 82570; 83735; 96365; 96366; 96367; J3475; J3480

== ENCOUNTER → 2020-07-27 08:20 | Day surgery (SDC) | payer MEDICARE, SELFPAY ==
[2020-07-27] MEDS: potassium chloride premix 100 ML 25 MEQ IV (09:41)
[2020-07-27 09:42] LABS: Albumin Level 3.7 g/dL (3.5-5.2); Blood Urea Nitrogen 18 mg/dL (8-23); Calcium 8.5 mg/dL (8.5-10.5); Chloride 81 mmol/L (98-107); Glucose 102 mg/dL (65-115); Magnesium 1.3 mg/dL (1.7-2.3); Phosphorus 2.3 mg/dL (2.5-4.5); Sodium 136 mmol/L (136-145)
[2020-07-27 09:43] VITALS: BP 91/56; PULSE 98; RESP 16; TEMP 36.6; O2SAT 98
[2020-07-27 09:46] LABS: Carbon Dioxide 42 mmol/L (22-29)
[2020-07-27] MEDS: magnesium sulfate premix 2 GM/50 ML PIGGYBACK IV (10:00)
[2020-07-27] MEDS: potassium chloride premix 100 ML 37.5 MEQ IV (12:43)
== END ==
LOC: GILAB 08:20
PROVIDERS: PCP Family Medicine; Visit Provider Family Medicine
DX: E87.6 Hypokalemia (principal); E83.42 Hypomagnesemia
CPT/HCPCS: 36591; 80069; 83735; 96365; 96366; 96367; J3475; J3480

== ENCOUNTER → 2020-08-03 08:03 | Day surgery (SDC) | payer MEDICARE, SELFPAY ==
[2020-08-03] MEDS: potassium chloride premix 100 ML 37.5 MEQ IV ×2 (08:27→10:59)
[2020-08-03 08:44] VITALS: BP 96/38; PULSE 88; RESP 18; TEMP 36.7; O2SAT 99
[2020-08-03 09:02] LABS: Albumin Level 3.4 g/dL (3.5-5.2); Blood Urea Nitrogen 22 mg/dL (8-23); Calcium 8.7 mg/dL (8.5-10.5); Chloride 77 mmol/L (98-107); Glucose 85 mg/dL (65-115); Magnesium 1.4 mg/dL (1.7-2.3); Sodium 136 mmol/L (136-145)
[2020-08-03 09:23] LABS: Potassium 2.5 mmol/L (3.5-5.1)
[2020-08-03 09:24] LABS: Anion Gap 9.5 (5-19); Carbon Dioxide > 52 mmol/L (22-29)
[2020-08-03] MEDS: magnesium sulfate premix 2 GM/50 ML PIGGYBACK IV (09:34)
--- NOTE | 2020-08-03 09:42 | PC.NURSE ---
Pt to [facility] GI lab for potassium infusion. Labs drawn as ordered and results faxed to Dr. Malcom Benz. Pt A&O x 3. VSS. Tolerating infusion without difficulty. Mg level noted at 1.4. Magnesium 2 gm IVPB to be given as ordered for Mg less than 1.8. Pt on continuous telemetry and noted to be in NSR with heart rate 87. Call light within reach.
== END ==
LOC: GILAB 08:04
PROVIDERS: PCP Family Medicine; Visit Provider Family Medicine
DX: E87.6 Hypokalemia (principal); E83.42 Hypomagnesemia
CPT/HCPCS: 36591; 80069; 83735; 96365; 96366; J3475; J3480

== ENCOUNTER → 2020-09-13 08:08 | Day surgery (SDC) | payer MEDICARE, SELFPAY ==
[2020-09-13 08:33] VITALS: BP 85/56; PULSE 97; RESP 18; TEMP 36.1; O2SAT 94
[2020-09-13] MEDS: potassium chloride premix 100 ML 37.5 MEQ IV ×2 (08:36→11:15)
[2020-09-13 09:33] VITALS: BP 106/66; PULSE 96; RESP 14
[2020-09-13 09:42] LABS: Blood Urea Nitrogen 33 mg/dL (8-23); Calcium 9.3 mg/dL (8.5-10.5); Chloride 74 mmol/L (98-107); Glucose 88 mg/dL (65-115); Magnesium 1.5 mg/dL (1.7-2.3); Osmolality Calculated 289 mOsm/kg (285-295); Sodium 136 mmol/L (136-145)
[2020-09-13 09:44] LABS: Potassium 2.8 mmol/L (3.5-5.1)
[2020-09-13 09:51] LABS: Anion Gap 14.8 (5-19); Carbon Dioxide > 50 mmol/L (22-29)
[2020-09-13] MEDS: magnesium sulfate premix 2 GM/50 ML PIGGYBACK IV (09:55)
[2020-09-13 11:19] VITALS: BP 95/63; PULSE 102; RESP 14
== END ==
LOC: GILAB 08:10
PROVIDERS: PCP Family Medicine; Visit Provider Family Medicine
DX: E87.6 Hypokalemia (principal)
CPT/HCPCS: 36591; 80048; 83735; 96365; 96366; 96367; J3475; J3480

== ENCOUNTER 2020-10-12 11:53 | Outpatient (CLI) | payer MEDICARE, SELFPAY | END 2020-10-12 11:54 | disposition home or self-care (01) | LOC: SOT 11:54 | PROVIDERS: Absent Provider Orthopaedic Surgery; PCP Family Medicine; Visit Provider Orthopaedic Surgery | DX: Z46.89 Encounter for fitting and adjustment of other specified devices (principal); S52.502D Unspecified fracture of the lower end of left radius, subsequent encounter for closed fracture with routine healing; X58.XXXD Exposure to other specified factors, subsequent encounter | CPT/HCPCS: L3982 ==

== ENCOUNTER 2021-02-26 15:17 | Emergency (ER) | payer MEDICARE, SELFPAY ==
[2021-02-26 15:34] VITALS: BP 186/135; PULSE 107; RESP 20; TEMP 38.7; O2SAT 97; BMI 12.8
--- NOTE | 2021-02-26 15:53 | XRR_ITS ---
PROCEDURE INFORMATION: Exam: XR Chest Exam date and time: 02/26/2021 3:53 PM Age: 70 years old Clinical indication: Fever; Additional info: Fever, covid exposure TECHNIQUE: Imaging protocol: XR of the chest. Views: 1 view. COMPARISON: CR XR chest 1V portable [id number] 04/30/2020 3:17 PM FINDINGS: Tubes, catheters and devices: Right Bavetj-H-Adbq with tip over the mid SVC. Lungs: Changes of emphysema with mild interstitial changes in both lungs. The lungs are otherwise clear. No consolidation. Pleural spaces: Stable apical pleural scarring. No pneumothorax. Heart/Mediastinum: Unremarkable. No cardiomegaly. Bones/joints: Metal plate and screws in the proximal right humerus transversing an old fracture. XR/XR chest 1V portable [id number] IMPRESSION: No acute findings.
[2021-02-26 17:51] VITALS: BP 115/65; PULSE 114; RESP 25; TEMP 37.7; O2SAT 967
[2021-02-26] MEDS: acetaminophen 500 mg Tablet PO (17:53)
[2021-02-26] MEDS: sodium chloride 0.9% 500 ML IV (18:16)
[2021-02-26 18:23] LABS: Basophils % 0.4 %; Eosinophils % 0.5 %; Hematocrit 25.9 % (37.0-47.0); Hemoglobin 8.7 g/dL (11.5-15.3); Lymphocytes # 0.5 10^3/uL (0.8-4.8); Lymphocytes % 8.9 %; Mean Corpuscular HGB Conc 33.6 g/dL (30.0-36.0); Mean Corpuscular Hemoglobin 32.6 pg (28.0-34.0); Mean Platelet Volume 11.1 fL (7.4-10.4); Monocytes # 0.7 10^3/uL (0.2-0.9); Monocytes % 13.4 %; Neutrophils # 4.21 10^3/uL (1.8-7.7); Neutrophils % 76.4 %; Nucleated Red Blood Cells % 0 %; Platelet Count 235 10^3/cmm (130-400); Red Blood Count 2.67 10^6/uL (4.1-5.3); Red Cell Distribution Width 15.9 % (12.1-15.1); White Blood Count 5.5 10^3/uL (4.0-10.0)
[2021-02-26 18:43] LABS: Alanine Aminotransferase 46 U/L (0-33); Albumin Level 4.1 g/dL (3.5-5.2); Alkaline Phosphatase 118 IU/L (35-105); Anion Gap 21.6 (5-19); Aspartate Amino Transferase 30 U/L (0-32); Blood Urea Nitrogen 34 mg/dL (8-23); Calcium 8.5 mg/dL (8.5-10.5); Carbon Dioxide 39 mmol/L (22-29); Chloride 78 mmol/L (98-107); Glucose 84 mg/dL (65-115); Osmolality Calculated 289 mOsm/kg (285-295); Sodium 136 mmol/L (136-145); Total Bilirubin 0.5 mg/dL (0.15-1.2); Total Protein 7.1 g/dL (6.6-8.7)
--- NOTE | 2021-02-26 18:48 | ED_ITS ---
HPI - COVID General: Chief Complaint: COVID symptoms Stated Complaint: COVID symptoms/infusion tomorrow Time Seen by Provider: 02/26/21 17:51 Source: patient Mode of arrival: ambulatory Triage information: Has fever, cough or shortness of breath . Exposure to COVID + person last 14 days History of Present Illness: HPI Narrative: 70-year-old female has had cough, congestion, and low-grade fever for 2 to 3 days. She has been staying with her daughter over the holidays, daughter had similar symptoms, and tested positive for COVID-19 earlier today. The patient recovered from Covid?19 in December 2019, and she has received her Covid vaccine. She has end-stage kidney disease, COPD, and is on home hospice. She lives in long-term care facility in [place]. COVID 19 common symptoms: positive fever(s), chills, non-productive cough and body aches; negative nausea or vomiting COVID Results: SARS-CoV-2 Antigen (Rapid) Positive (Negative) H 10/25/19 00:35 10/25/19 SARS-CoV-2 RNA (RT-PCR) Not detected (NOT DETECTED) 12/20/19 11:48 12/20/19 Review of Systems General: Reports: 10 or more systems reviewed and unremarkable except in HPI and below Const: Reports: fever(s), chills and body aches; Denies: change in appetite Eyes: Denies: change in vision or blurry vision Resp: Reports: non-productive cough and chest congestion GI: Denies: nausea or vomiting : Denies: difficulty voiding Skin/Breast: Denies: rash, pruritus or erythema PFS ED PFSH: Medical History Atrial fibrillation not chronic Chronic anemia Chronic kidney disease, stage III (moderate) COVID-19 (~10/2019) Crohn's disease s/p total colectomy with ileostomy Hyperaldosteronism Hypersomnia Hypokalemia chronically on IV infusions of potassium and magnesium Hypomagnesemia chronic Local infection due to Port-A-Cath Myocardial infarction (lateral wall) Osteoporosis Severe protein-calorie malnutrition Short gut syndrome Stage III pressure ulcer Systolic congestive heart failure Vitamin B2 deficiency Surgical History H/O ileostomy (~2002) H/O total colectomy (~2002) History of arthrodesis (08/03/18) right index finger History of delivery x4 History of hernia repair History of right hip replacement (~08/2019) Hx of appendectomy Port-A-Cath in place (10/12/19) right IJ Status post open reduction and internal fixation (ORIF) of fracture (12/22/19) left radius, Irina Status post open reduction and internal fixation (ORIF) of fracture (11/2019) right humerus, Irina Family History Other CAD (coronary artery disease) Cancer Congestive heart failure Diabetes Hyperlipidemia Social History Smoking and tobacco status: never smoked Second hand smoke exposure: No Alcohol intake: never Lives independently: Yes Household members: spouse Marital status: Current occupational status: retired History of recent travel: No Current gender identity: Female Physical Exam Const: COMMON NORMALS: no acute distress and patient oriented x3 GENERAL APPEARANCE: comfortable and frail appearing; not in distress NUTRITIONAL APPEARANCE: cachectic ORIENTATION/CONSCIOUSNESS: Yes awake, Yes oriented to person, Yes oriented to place and Yes oriented to time HENMT: COMMON NORMALS: normocephalic and atraumatic HEAD & SCALP: normoceph alic and atraumatic FACE & SINUS: normal facial exam and face symmetric Eye: COMMON NORMALS: Equal, round and reactive pupils present, EOMs intact bilaterally and conjunctivae normal CONJUNCTIVA: Yes conjunctivae normal PUPIL: Yes Equal, round and reactive pupils present Chest: CHEST: Yes Vascular access present Resp: COMMON NORMALS: normal respiratory effort and No retractions EFFORT & INSPECTION: Yes tachypneic and Yes Actively coughing non-productive and rattling AUSCULTATION: rales Cardio: COMMON NORMALS: regular rate and regular rhythm RATE: regular rate RHYTHM: regular rhythm GI: COMMON NORMALS: Soft to palpation and non-tender PALPATION: Yes Soft to palpation Extremity: COMMON NORMALS: capillary refill normal, no joint enlargement and no clubbing, cyanosis or edema Neuro: COMMON NORMALS: patient oriented x3, moves all extremities and no focal motor deficits SENSORIUM/ORIENTATION: Yes oriented to person, Yes oriented to place and Yes oriented to time Skin: COMMON NORMALS: no rashes or lesions noted and no wounds GENERAL SKIN EXAM: no rashes or lesions noted and dry skin Course Vital Signs: Vital signs: Vital Signs Temperature 99.9 F H 02/26/21 17:51 Pulse Rate 114 H 02/26/21 17:51 Respiratory Rate 25 H 02/26/21 17:51 Blood Pressure 115/65 02/26/21 17:51 Pulse Oximetry 967 H 02/26/21 17:51 MDM - COVID MDM Narrative: Medical decision making narrative: 70-year-old female with cough and congestion for the last few days, has been living with her daughter over the holidays who just tested positive for Covid this morning. She is very frail, but otherwise well-appearing, wanting to eat dinner, not hav ing any respiratory distress. She does have oxygen at home that she uses as needed, currently she is requiring 1 to 2 L by nasal cannula and O2 sats are in the high 90s. She has home hospice services. She has chronic hypokalemia and hypo-[place] anemia for which she receives regular infusions. Her levels today are similar to baseline. She is stable to be discharged back to her residential facility. Differential Diagnosis: Differential diagnosis: Likely COVID 19, other viral infection and copd exacerbation Medical Records: Attestation: I reviewed the patient's medical records. Lab Data: Attestation: I reviewed the patient's lab results. Labs: Lab Results 02/26/21 02/26/21 02/26/21 18:15 18:15 18:15 WBC 5.5 10^3/uL 10^3/ uL (4.0-10.0) RBC 2.67 10^6/uL L 10 ^6/uL (4.1-5.3) Hgb 8.7 g/dL L g/dL (11.5-15.3) Hct 25.9 % L % (37.0-47.0) MCV 97.0 fl fl (81-99) MCH 32.6 pg pg (28.0-34.0) MCHC 33.6 g/dL g/dL (30.0-36.0) RDW 15.9 % H % (12.1-15.1) Plt Count 235 10^3/cmm 10^3 /cmm (130-400) MPV 11.1 fL H fL (7.4-10.4) Neut % (Auto) 76.4 % % Lymph % (Auto) 8.9 % % [place] % (Auto) 13.4 % % Eos % (Auto) 0.5 % % Baso % (Auto) 0.4 % % Neut # (Auto) 4.21 10^3/uL 10^3 /uL (1.8-7.7) Lymph # (Auto) 0.5 10^3/uL L 10^ 3/uL (0.8-4.8) [place] # (Auto) 0.7 10^3/uL 10^3/ uL (0.2-0.9) Eos # (Auto) 0.0 10^3/uL 10^3/ uL (0.0-0.8) Baso # (Auto) 0.0 10^3/uL 10^3/ uL (0.0-0.1) Nucleated RBC % (a uto) 0 % % Nucleated RBCs # 0.0 /100WBC /100W BC Sodium 136 mmol/L mmol/L (136-145) Potassium 2.6 mmol/L L* mmo l/L (3.5-5.1) Chloride 78 mmol/L L mmol/ L (98-107) Carbon Dioxide 39 mmol/L H mmol/ L (22-29) Anion Gap 21.6 H (5-19) BUN 34 mg/dL H mg/dL (8-23) Creatinine 4.0 mg/dL H mg/dL (0.5-0.9) GFR Calculation Not Reportable Glucose 84 mg/dL mg/dL (65-115) Calculated Osmolal ity 289 mOsm/kg mOsm/ kg (285-295) Calcium 8.5 mg/dL mg/dL (8.5-10.5) Magnesium 1.6 mg/dL L mg/dL (1.7-2.3) Total Bilirubin 0.5 mg/dL mg/dL (0.15-1.2) AST 30 U/L U/L (0-32) ALT 46 U/L H U/L (0-33) Alkaline Phosphata se 118 IU/L H IU/L (35-105) Total Protein 7.1 g/dL g/dL (6.6-8.7) Albumin 4.1 g/dL g/dL (3.5-5.2) Globulin 3.0 g/dL g/dL (1.3-4.6) COVID Results: SARS-CoV-2 Antigen (Rapid) Positive (Negative) H 10/25/19 00:35 10/25/19 SARS-CoV-2 RNA (RT-PCR) Not detected (NOT DETECTED) 12/20/19 11:48 12/20/19 Discharge Plan Discharge Patient Disposition: Home Clinical Impression: Close exposure to severe acute respiratory syndrome coronavirus 2 (SARS-CoV-2), Chronic hypokalemia, Hypomagnesemia Condition: Stable Prescriptions: No Action promethazine 25 mg tablet 25 mg PO TID PRNRF: 0 (DME) ostomy wipes See Rx Instructions .Route .MEDSUPPLY Qty: 100 RF: 0 tramadol 50 mg tablet 50 mg PO Q6H PRN (Reason: pain) Qty: 120 RF: 0 (DME) [facility] Joint Brace See Rx Instructions .ROUTE .MEDSUPPLY Qty: 1 RF: 0 MAGNESIUM SULFATE See Rx Instructions .ROUTE .COMPLEX Qty: 2 RF: 11 ZOFRAN See Rx Instructions .ROUTE .COMPLEX Qty: 4 RF: 11 promethazine 25 mg tablet 25 mg PO QID PRN (Reason: Nausea) Qty: 30 RF: 1 gabapentin 300 mg capsule See Rx Instructions .ROUTE .COMPLEX RF: 0 atorvastatin 20 mg tablet 20 mg PO BEDTIME RF: 0 acetaminophen [Tylenol Extra Strength] 500 mg Tablet 1,000 mg PO PRN RF: 0 albuterol sulfate [Ventolin HFA] 90 mcg/actuation Hfa Aerosol Inhaler 2 puff INHALATION Q4H PRN (Reason: Shortness Of Breath) RF: 0 potassium gluconate 595 mg (99 mg) Tablet 595 mg PO TID RF: 0 magnesium oxide 400 mg (241.3 mg magnesium) tablet 400 mg PO DAILY RF: 0 Discharge Orders: Discharge ED (Routine); Ordered 02/26/21 Ordered By: Shruthi Clark Referrals: Veda Gilman MD [Primary Care Provider] - Discharge Diet: Usual diet Discharge Activity: Resume usual activity Patient Instructions: COVID-19 (Coronavirus Disease 2019) (ED) Coding Level of Care Code ED Strand And Binder Controller for Rudolph Miller
[2021-02-26 18:57] LABS: Potassium 2.6 mmol/L (3.5-5.1)
[2021-02-26 19:20] LABS: Magnesium 1.6 mg/dL (1.7-2.3)
[2021-02-26 20:45] VITALS: BP 107/67; PULSE 101; RESP 22; TEMP 37.2; O2SAT 95
[2021-02-26 20:46] VITALS: BP 107/67; PULSE 101; RESP 22; TEMP 37.2; O2SAT 95
[2021-02-28 23:19] LABS: Quest SARS-CoV-2 RNA NOT DETECTED (NOT DETECTED)
== END 2021-02-26 20:48 | disposition home or self-care (01) ==
PROVIDERS: Physician Assistant; Emergency Provider Family Medicine; PCP Family Medicine
DX: Z20.822 Contact with and (suspected) exposure to COVID-19 (principal); E87.6 Hypokalemia; E83.42 Hypomagnesemia; N18.30 Chronic kidney disease, stage 3 unspecified; I25.2 Old myocardial infarction
CPT/HCPCS: 71045; 80053; 83735; 85025; 87635; 96360; 99283; J7040

== ENCOUNTER 2021-08-16 17:21 | Inpatient (IN) | payer MEDICARE, SELFPAY ==
[2021-08-16 17:32] VITALS: BP 100/60; PULSE 107; RESP 18; TEMP 37.4; O2SAT 97; BMI 12.8
--- NOTE | 2021-08-16 17:39 | ECG_ITS ---
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 Measurements Intervals [place] Rate: 97 P: 75 [place]: 153 QRS: 75 QRSD: 82 T: 79 QT: 397 QTc: 505 Interpretive Statements SINUS RHYTHM WITH OCCASIONAL VENTRICULAR PREMATURE COMPLEXES POSSIBLE LEFT ATRIAL ENLARGEMENT [-0.1mV P-WAVE IN V1/V2] Compared to ECG 05/02/2020 05:29:19 Ventricular premature complex(es) now present Myocardial infarct finding no longer present Electronically Signed On 08-16-2021 20:41:41 CDT by Oswaldo Reynolds M.D. [id number]
--- NOTE | 2021-08-16 17:40 | W.ED.GENADLT ---
HPI - General Adult General: Chief complaint: General Medical Stated complaint: dr paulino kidney problems Time Seen by Provider: 08/16/21 17:38 History of Present Illness: Patient is a 71-year-old female with history chronic kidney disease, Crohn's disease complicated by total colectomy, chronic hypomagnesia/hypokalemia requiring weekly infusions presenting to the emergency room for concerns of ankle swelling, generalized weakness and concerns for renal failure. Patient tells me at baseline, her creatinine function is between 1.7-4. She tells that previously she was on dialysis but did not like the sensation of being on dialysis. Patient is currently followed by nephrology at [facility] [place]. Patient was told by Dr. Benz to come to the emergency room given her ankle swelling and generalized weakness as this could be signs that her kidney is failing. Patient cannot undergo her weekly infusion for magnesium and potassium. Patient tells me that she has not had any increased ostomy output. She denies nausea/vomiting, fever/chill, chest pain, shortness of breath, abdominal pain, dysuria/hematuria/polyuria, diarrhea/melena/hematochezia. Patient tells me she is able to still able to make urine. Onset:2 days ago Duration:2 days Location:home Severity:mild/moderate Associated symptoms: Reports malaise; Deny chest pain, dyspnea, nausea, rash, palpitations or vomiting Review of Systems Const: Reports: fatigue, malaise and other (+Generalized weakness); Denies: fever(s) or chills Eyes: Denies: change in vision ENMT: Denies: mouth pain Card: Denies: chest pain or palpitations Resp: Denies: dyspnea or non-productive cough GI: Denies: abdominal pain, nausea, vomiting or diarrhea : Denies: dysuria Musc: Reports: extremity swelling (b/l debra swelling); Denies: extremity pain Skin/Breast: Denies: rash or new lesions Neuro: Denies: weakness in extremities Psych: Reports: other (Normal mood) Frankie/Lymph: Denies: easy bruising PFSH ED PFSH: Medical History Atrial fibrillation not chronic Chronic anemia Chronic kidney disease, stage III (moderate) COVID-19 (~10/2019) Crohn's disease s/p total colectomy with ileostomy Hyperaldosteronism Hypersomnia Hypokalemia chronically on IV infusions of potassium and magnesium Hypomagnesemia chronic Local infection due to Port-A-Cath Myocardial infarction (lateral wall) Osteoporosis Severe protein-calorie malnutrition Short gut syndrome Stage III pressure ulcer Systolic congestive heart failure Vitamin B2 deficiency Surgical History H/O ileostomy (~2002) H/O total colectomy (~2002) History of arthrodesis (08/03/18) right index finger History of delivery x4 History of hernia repair History of right hip replacement (~08/2019) Hx of appendectomy Port-A-Cath in place (10/12/19) right IJ Status post open reduction and internal fixation (ORIF) of fracture (12/22/19) left radius, Irina Status post open reduction and internal fixation (ORIF) of fracture (11/2019) right humerus, Irina Family History Other CAD (coronary artery disease) Cancer Congestive heart failure Diabetes Hyperlipidemia Social History Smoking and tobacco status: never smoked Second hand smoke exposure: No Alcohol intake: never Lives independently: Yes Household members: spouse Marital status: Current occupational status: retired History of recent travel: No Current gender identity: Female Physical Exam Const: COMMON NORMALS: alert HENMT: COMMON NORMALS: atraumatic HEAD & SCALP: atraumatic MOUTH: moist mucous membranes not abnormal Eye: COMMON NORMALS: EOMs intact bilaterally and conjunctivae normal CONJUNCTIVA: Yes conjunctivae normal Neck/C-Spine: COMMON NORMALS: full ROM and supple Resp: COMMON NORMALS: normal respiratory effort and clear to auscultation bilaterally AUSCULTATION: clear to auscultation bilaterally Cardio: COMMON NORMALS: regular rate RATE: regular rate GI: COMMON NORMALS: Soft to palpation and non-tender PALPATION: Yes Soft to palpation OTHER: + Ostomy site dry clean intact. No focal TTP. NO guarding rebound, guarding, rigidity. No CVA tenderness to percussion. Neg Matias/Neg McBurney's point tenderness, no suprabupic tenderness to palpation. Extremity: COMMON NORMALS: full ROM OTHER: No lower extremity swelling Neuro: SENSORIUM/ORIENTATION: Yes alert MOTOR EXAM: No Abnormal motor strength present and Other motor observations present (no focal motor deficits) Psych: COMMON NORMALS: speech normal SPEECH: Yes normal speech MOOD & AFFECT: Yes euthymic mood Course Vital Signs: Vital signs: Vital Signs Temperature 99.3 F 08/16/21 17:32 Pulse Rate 94 08/16/21 18:51 Respiratory Rate 15 08/16/21 18:51 Blood Pressure 121/59 08/16/21 18:51 Pulse Oximetry 93 08/16/21 18:51 MDM - General Adult Medical Decision Making 71-year-old female with history of colectomy for Crohn's disease, CKD presenting to the emergency room for general evaluation of generalized weakness and ankle swelling and for concerns of possibly worsening kidney function. On physical exam, patient has no lower extremity swelling. Patient has no crackles on lung exam. Patient's ostomy site appears directly intact. No focal abdominal tenderness palpation. Cr of 5.8 up from baseline of 4. Potassium 2.5. Case was discussed with Dr. Adeel Vergara who will follow the patient. Patient is receiving p.o. and IV potassium replacement. Disposition: admit to observation Lab Data : 08/16/21 18:21 08/16/21 18:21 Laboratory Results WBC 9.3 10^3/uL (4.0-10.0) 08/16/21 18:21 RBC 2.91 10^6/uL (4.1-5.3) L 08/16/21 18:21 Hgb 9.4 g/dL (11.5-15.3) L 08/16/21 18:21 Hct 27.3 % (37.0-47.0) L 08/16/21 18:21 MCV 93.8 fl (81-99) 08/16/21 18:21 MCH 32.3 pg (28.0-34.0) 08/16/21 18:21 MCHC 34.4 g/dL (30.0-36.0) 08/16/21 18:21 RDW 14.5 % (12.1-15.1) 08/16/21 18:21 Plt Count 209 10^3/cmm (130-400) 08/16/21 18:21 MPV 11.1 fL (7.4-10.4) H 08/16/21 18:21 Neut % (Auto) 75.2 % 08/16/21 18:21 Lymph % (Auto) 14.8 % 08/16/21 18:21 Lane % (Auto) 8.7 % 08/16/21 18:21 Eos % (Auto) 0.6 % 08/16/21 18:21 Baso % (Auto) 0.4 % 08/16/21 18:21 Neut # (Auto) 6.96 10^3/uL (1.8-7.7) 08/16/21 18:21 Lymph # (Auto) 1.4 10^3/uL (0.8-4.8) 08/16/21 18:21 Lane # (Auto) 0.8 10^3/uL (0.2-0.9) 08/16/21 18:21 Eos # (Auto) 0.1 10^3/uL (0.0-0.8) 08/16/21 18:21 Baso # (Auto) 0.0 10^3/uL (0.0-0.1) 08/16/21 18:21 Nucleated RBC % (auto) 0 % 08/16/21 18:21 Nucleated RBCs # 0.0 /100WBC 08/16/21 18:21 Sodium 135 mmol/L (136-145) L 08/16/21 18:21 Potassium 2.5 mmol/L (3.5-5.1) L* 08/16/21 18:21 Chloride 72 mmol/L (98-107) L 08/16/21 18:21 Carbon Dioxide 50 mmol/L (22-29) H* 08/16/21 18:21 Anion Gap 15.5 (5-19) 08/16/21 18:21 BUN 29 mg/dL (8-23) H 08/16/21 18:21 Creatinine 5.8 mg/dL (0.5-0.9) H* 08/16/21 18:21 GFR Calculation Not Reportable 08/16/21 18:21 Glucose 83 mg/dL (65-115) 08/16/21 18:21 Calculated Osmolality 285 mOsm/kg (285-295) 08/16/21 18:21 Calcium 9.3 mg/dL (8.5-10.5) 08/16/21 18:21 Magnesium 1.8 mg/dL (1.7-2.3) 08/16/21 18:21 Total Bilirubin 0.7 mg/dL (0.15-1.2) 08/16/21 18:21 AST 25 U/L (0-32) 08/16/21 18:21 ALT 10 U/L (0-33) 08/16/21 18:21 Alkaline Phosphatase 95 IU/L (35-105) 08/16/21 18:21 Total Protein 7.2 g/dL (6.6-8.7) 08/16/21 18:21 Albumin 4.2 g/dL (3.5-5.2) 08/16/21 18:21 Globulin 3.0 g/dL (1.3-4.6) 08/16/21 18:21 Lipase 61 U/L (13-60) H 08/16/21 18:21 Discharge Plan Discharge Patient Disposition: Admitted As Inpatient Clinical Impression: Generalized weakness, Hypokalemia, Acute renal failure, Acute kidney injury superimposed on CKD Condition: Stable Coding Level of Care Code ED Radio Announcer for Awildag Fwd Exam Comprehensive
[2021-08-16 18:37] LABS: Basophils % 0.4 %; Eosinophils # 0.1 10^3/uL (0.0-0.8); Eosinophils % 0.6 %; Hematocrit 27.3 % (37.0-47.0); Hemoglobin 9.4 g/dL (11.5-15.3); Lymphocytes # 1.4 10^3/uL (0.8-4.8); Lymphocytes % 14.8 %; Mean Corpuscular HGB Conc 34.4 g/dL (30.0-36.0); Mean Corpuscular Hemoglobin 32.3 pg (28.0-34.0); Mean Corpuscular Volume 93.8 fl (81-99); Mean Platelet Volume 11.1 fL (7.4-10.4); Monocytes # 0.8 10^3/uL (0.2-0.9); Monocytes % 8.7 %; Neutrophils # 6.96 10^3/uL (1.8-7.7); Neutrophils % 75.2 %; Nucleated Red Blood Cells % 0 %; Platelet Count 209 10^3/cmm (130-400); Red Blood Count 2.91 10^6/uL (4.1-5.3); Red Cell Distribution Width 14.5 % (12.1-15.1); White Blood Count 9.3 10^3/uL (4.0-10.0)
[2021-08-16 18:51] VITALS: BP 121/59; PULSE 94; RESP 15; O2SAT 93
[2021-08-16 19:04] LABS: Alanine Aminotransferase 10 U/L (0-33); Albumin Level 4.2 g/dL (3.5-5.2); Alkaline Phosphatase 95 IU/L (35-105); Anion Gap 15.5 (5-19); Aspartate Amino Transferase 25 U/L (0-32); Blood Urea Nitrogen 29 mg/dL (8-23); Calcium 9.3 mg/dL (8.5-10.5); Chloride 72 mmol/L (98-107); Glucose 83 mg/dL (65-115); Lipase 61 U/L (13-60); Magnesium 1.8 mg/dL (1.7-2.3); Osmolality Calculated 285 mOsm/kg (285-295); Sodium 135 mmol/L (136-145); Total Bilirubin 0.7 mg/dL (0.15-1.2); Total Protein 7.2 g/dL (6.6-8.7)
[2021-08-16 19:15] LABS: Carbon Dioxide 50 mmol/L (22-29); Potassium 2.5 mmol/L (3.5-5.1)
--- NOTE | 2021-08-16 19:15 | PC.NURSE ---
Critical labs reported to Dr Montes. K+ 2.5, CO2 50, Cr5.8.
[2021-08-16] MEDS: potassium chloride oral liq 20 mEq/15 mL UDC 40 MEQ PO (19:59)
[2021-08-16] MEDS: potassium chloride premix 100 ML 25 MEQ IV ×2 (20:01→21:34)
[2021-08-16 20:06] LABS: Phosphorus 5.5 mg/dL (2.5-4.5); Uric Acid 19.8 mg/dL (2.4-5.7)
--- NOTE | 2021-08-16 20:27 | PM.HP ---
Providers/Chief Complaint Admitting Physician: Karin Kumar MD Primary Care Provider: Has a new primary care provider in [place], she does not currently recall the name, no longer sees Dr. Gilman Chief Complaint: dr paulino kidney problems History of Present Illness Janene Gallegos is a 71 year old female who presented to the emergency room with chief complaint of weight gain and malaise. She has a history of Crohn's disease for which she underwent total colectomy and eventual ileostomy years ago. She also has chronic kidney disease and is followed by Dr. Benz. She requires weekly potassium infusions and every other week magnesium infusions. She had previously been managed here but moved to [place]. She has a new primary care provider there. A granddaughter got and had a veterinary receptionist so she was staying with friends/family here. For the last couple of days she has had malaise. She checked her weight and noted a 10 pound weight gain. She had also had ankle edema. She says I can feel the fluid inside of me . She describes decreased urine output the last couple of days as well. She called Dr. Benz's office and was told to come to the emergency room. She has been short of breath but says just a little. Does not describe significant orthopnea. Has had a mild nonproductive cough, headache. She happened to miss her potassium infusion this week which was scheduled in [place] because she was visiting here. She has had joint pains, palpitations. No fever. Work-up in the emergency room revealed a potassium of 2.5 which is fairly common when she presents. Magnesium was 1.7. Creatinine was 5.8, which is up from prior values here in January 2021 when creatinine was 4.0. She is able to tell me that her kidney function has gotten progressively worse but does not know what her last creatinine values or GFR were. ED provider discussed the case with on-call nephrology who by report recommended electrolyte replacement, admission and indicated that they would see Mrs. Rivera in the morning. She is being admitted to hospitalist service. She says she was scared to be around her grandkids because she was afraid something would happen. Review of Systems Const: Reports: change in weight (weight gain reported, says carlos weight lately around 65 pounds); Denies: fever(s) or chills ENMT: Denies: throat pain or nasal congestion Card: Reports: palpitations, irregular heart rhythm, swelling of feet/ankles and dyspnea on exertion; Denies: chest pain or orthopnea Resp: Reports: dyspnea, productive cough (sometimes) and non-productive cough; Denies: pain on inspiration GI: Reports: other (no change in ostomy output); Denies: abdominal pain, nausea, vomiting or hematochezia : Reports: oliguria Musc: Reports: joint pain (all joints), joint swelling (left index finger and right pinky), muscle cramps and muscle weakness Skin/Breast: Denies: pruritus or sores Neuro: Reports: headache(s), numbness in extremities, weakness in extremities (general not focal) and difficulty walking (due to pain and weakness, not new) Psych: Reports: anxiety Frankie/Lymph: Denies: easy bruising or easy bleeding Medications/Allergies Home Medications Medication Instructions Recorded Confirmed Last Taken Type acetaminophen 500 mg tablet 1,000 mg PO PRN 04/30/20 08/16/21 08/02/20 History (Tylenol Extra Strength) albuterol sulfate 90 mcg/actuation 2 puff INHALATION Q4H PRN 04/30/20 08/16/21 09/12/20 History aerosol inhaler (Ventolin HFA) atorvastatin 20 mg tablet 20 mg PO BEDTIME 04/30/20 08/16/21 09/12/20 History magnesium oxide 400 mg (241.3 mg 800 mg PO BID 04/30/20 08/16/21 08/15/21 History magnesium) tablet [facility] Joint Brace #1 ea 05/08/20 08/16/21 Unknown Rx MAGNESIUM SULFATE See Rx Instructions .ROUTE 08/29/20 08/16/21 Unknown Rx .COMPLEX #2 g ostomy wipes #100 ea 10/25/20 08/16/21 Unknown Rx tramadol 50 mg tablet 50 mg PO Q6H PRN #120 tab 10/25/20 08/16/21 08/15/21 Rx aspirin 81 mg tablet,delayed 81 mg PO BID 08/16/21 08/16/21 08/15/21 History release gabapentin 400 mg capsule 800 mg PO TID 08/16/21 08/16/21 08/15/21 History potassium chloride 20 mEq 40 meq PO BID 08/16/21 08/16/2108/15/22 History tablet,extended release(part/cryst) (Klor-Con M) promethazine 25 mg tablet 25 mg PO BID PRN 08/16/21 08/16/21 08/15/21 History warfarin 1 mg tablet 1 mg PO DAILY 08/16/21 08/16/21 08/15/21 History Allergies Allergy/AdvReac Type Severity Reaction Status Date / Time amoxicillin Allergy ALGY-Hives Verified 08/16/21 18:39 cefazolin [From Ancef] Allergy ALGY-Rash Verified 08/16/21 18:39 cephalexin [From Keflex] Allergy ALGY-Rash Verified 08/16/21 18:39 codeine Allergy ALGY-Hives Verified 08/16/21 18:39 doxycycline Allergy ALGY-Hives Verified 08/16/21 18:39 erythromycin base Allergy ALGY-Hives Verified 08/16/21 18:39 [From E.E.S.] latex Allergy Unknown Verified 08/16/21 18:39 metoclopramide Allergy Unknown Verified 08/16/21 18:39 neomycin Allergy ALGY-Hives Verified 08/16/21 18:39 Penicillins Allergy ALGY-Hives Verified 08/16/21 18:39 polyethylene glycol Allergy ADR-Swelling Verified 08/16/21 18:39 of the Eye pregabalin [From Lyrica] Allergy ALGY-Swell Verified 08/16/21 18:39 Lip/Tongue/Throat prochlorperazine Allergy ALGY-Hives Verified 08/16/21 18:39 [From Compazine] propoxyphene [From Darvon] Allergy ALGY-Hives Verified 08/16/21 18:39 sapropterin Allergy ADR-Swelling Verified 08/16/21 18:39 [From Tetrahydrobiopterin of the Eye Di-HCL] scopolamine Allergy ALGY-Hives Verified 08/16/21 18:39 Sulfa (Sulfonamide Allergy ALGY-Hives Verified 08/16/21 18:39 Antibiotics) tegaserod [From Zelnorm] Allergy ALGY-Hives Verified 08/16/21 18:39 tetracycline Allergy ALGY-Hives Verified 08/16/21 18:39 tetrahydrozoline Allergy ADR-Swelling Verified 08/16/21 18:39 [From Visine] of the Eye PFSH Acute PFSH: Medical History (Updated 08/17/21 @ 01:35 by Karin Kumar MD) Atrial fibrillation not chronic Autonomic neuropathy BMI less than 19,adult Chronic anemia mixed B12 and iron deficiency 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 Baseline creatinine in 2020 records here 2.0-4.0. Has required hemodialysis in past during times of acute illness. Follows with Dr Benz. Creatinine has been as high as 17 in setting of severe pre-renal azotemia. COVID-19 (~10/2019) Crohn's disease s/p total colectomy (1980) with ileostomy (2002) History of MRSA infection History of pelvic fracture Hyperaldosteronism At at least one point in time felt secondary to aldactone rather than primary Hyperlipidemia Hypersomnia Hypokalemia chronically on IV infusions of potassium and magnesium Hypomagnesemia chronic Local infection due to Port-A-Cath (~2019) Myocardial infarction (lateral wall) Appears to have been identified during a prolonged hospital stay and possibly type II process. Had not required cardiac intervention. Osteoarthritis Osteoporosis Peripheral neuropathy Raynauds syndrome Severe protein-calorie malnutrition Short gut syndrome Stage III pressure ulcer Systolic congestive heart failure Diagnosed in 04/2019 at [facility] during a time of prolonged hospital care. Multiple echocardiograms show preserved EF 50-60% since that time. Appears to have been a transient issue related to acute medical issues at that time. Ventricular tachycardia (paroxysmal) related to electrolyte abnormalities Vitamin B12 deficiency Surgical History (Updated 08/16/21 @ 20:26 by Karin Kumar MD) H/O ileostomy (~2002) H/O total colectomy (~2002) History of arthrodesis (08/03/18) right index finger History of delivery x4 History of hernia repair History of right hip replacement (~08/2019) History of tubal ligation Hx of appendectomy Port-A-Cath in place (10/12/19) right IJ Status post open reduction and internal fixation (ORIF) of fracture (12/22/19) left radius, Irina Status post open reduction and internal fixation (ORIF) of fracture (11/2019) right humerus, Irina Status post open reduction and internal fixation (ORIF) of fracture right hip Family History Other CAD (coronary artery disease) Cancer Congestive heart failure Diabetes Hyperlipidemia Social History (Updated 08/17/21 @ 01:13 by Karin Kumar MD) Smoking and tobacco status: never smoked Second hand smoke exposure: No Alcohol intake: never Substance/Drug Use: never Current occupational status: retired Vitals/I&O/Wt Last Vital Signs Temp 99.3 F 08/16/21 17:32 Pulse 94 08/16/21 18:51 Resp 15 08/16/21 18:51 BP 121/59 08/16/21 18:51 Pulse Ox 93 08/16/21 18:51 Weight last 48 hrs Weight 31.751 kg Physical Exam Narrative: Constitutional: Thin build, awake and alert, able to provide history HEENT: Normocephalic, atraumatic, extraocular movements intact, slightly dry mucous membranes Neck: Supple Respiratory: Clear to auscultation bilaterally Cardiovascular: Regular rate and rhythm Abdomen: Soft, ostomy intact with yellow-brown liquid stool, no tenderness Extremities: No pretibial or ankle edema appreciated, no redness or warmth noted in the ankle or toes but hypersensitive to touch in both areas bilaterally, has swelling, nodularity and mild erythema without warmth at the second left and fifth right PIP, both are quite tender to palpation and range of motion at joint is decreased left greater than right, do not currently appreciate nodularity at other joints though does have some bony hypertrophy of other PIPs and DIPs, tenderness noted at almost all joints but other than findings at the 2 PIPs mentioned I do not see redness warmth swelling or effusion nor nodularity anywhere else currently Skin: Dry, no gross acute sores or bruises, port site appears intact Neuro: Speech clear, face symmetric, handgrip is equal, strength is equal at both feet, generally weak with loss of muscle mass throughout Psych: Anxious appearing but cooperative Data : 08/16/21 18:21 08/16/21 18:21 Other Labs: Laboratory Results WBC 9.3 10^3/uL (4.0-10.0) 08/16/21 18:21 RBC 2.91 10^6/uL (4.1-5.3) L 08/16/21 18:21 Hgb 9.4 g/dL (11.5-15.3) L 08/16/21 18:21 Hct 27.3 % (37.0-47.0) L 08/16/21 18:21 MCV 93.8 fl (81-99) 08/16/21 18:21 MCH 32.3 pg (28.0-34.0) 08/16/21 18:21 MCHC 34.4 g/dL (30.0-36.0) 08/16/21 18:21 RDW 14.5 % (12.1-15.1) 08/16/21 18:21 Plt Count 209 10^3/cmm (130-400) 08/16/21 18:21 MPV 11.1 fL (7.4-10.4) H 08/16/21 18:21 Neut % (Auto) 75.2 % 08/16/21 18:21 Lymph % (Auto) 14.8 % 08/16/21 18:21 [place] % (Auto) 8.7 % 08/16/21 18:21 Eos % (Auto) 0.6 % 08/16/21 18:21 Baso % (Auto) 0.4 % 08/16/21 18:21 Neut # (Auto) 6.96 10^3/uL (1.8-7.7) 08/16/21 18:21 Lymph # (Auto) 1.4 10^3/uL (0.8-4.8) 08/16/21 18:21 [place] # (Auto) 0.8 10^3/uL (0.2-0.9) 08/16/21 18:21 Eos # (Auto) 0.1 10^3/uL (0.0-0.8) 08/16/21 18:21 Baso # (Auto) 0.0 10^3/uL (0.0-0.1) 08/16/21 18:21 Nucleated RBC % (auto) 0 % 08/16/21 18:21 Nucleated RBCs # 0.0 /100WBC 08/16/21 18:21 Sodium 135 mmol/L (136-145) L 08/16/21 18:21 Potassium 2.5 mmol/L (3.5-5.1) L* 08/16/21 18:21 Chloride 72 mmol/L (98-107) L 08/16/21 18:21 Carbon Dioxide 50 mmol/L (22-29) H* 08/16/21 18:21 Anion Gap 15.5 (5-19) 08/16/21 18:21 BUN 29 mg/dL (8-23) H 08/16/21 18:21 Creatinine 5.8 mg/dL (0.5-0.9) H* 08/16/21 18:21 GFR Calculation Not Reportable 08/16/21 18:21 Glucose 83 mg/dL (65-115) 08/16/21 18:21 Calculated Osmolality 285 mOsm/kg (285-295) 08/16/21 18:21 Uric Acid 19.8 mg/dL (2.4-5.7) H 08/16/21 18:21 Calcium 9.3 mg/dL (8.5-10.5) 08/16/21 18:21 Phosphorus 5.5 mg/dL (2.5-4.5) H 08/16/21 18:21 Magnesium 1.8 mg/dL (1.7-2.3) 08/16/21 18:21 Total Bilirubin 0.7 mg/dL (0.15-1.2) 08/16/21 18:21 AST 25 U/L (0-32) 08/16/21 18:21 ALT 10 U/L (0-33) 08/16/21 18:21 Alkaline Phosphatase 95 IU/L (35-105) 08/16/21 18:21 Total Protein 7.2 g/dL (6.6-8.7) 08/16/21 18:21 Albumin 4.2 g/dL (3.5-5.2) 08/16/21 18:21 Globulin 3.0 g/dL (1.3-4.6) 08/16/21 18:21 Lipase 61 U/L (13-60) H 08/16/21 18:21 A&P Assessment and plan (1) Generalized weakness: Presenting complaint Status: Acute (2) Fluid retention: Presenting complaint although not evident on examination without having prior experience for comparison, reported 10 pound weight gain in the last 2 days and decreased urine output Status: Acute (3) Chronic kidney disease: At least stage 3, likely 3B. Specific stage not clear to me at this point in time. She indicates that her kidney function has been progressively worsening but does not know what her more recent labs have shown. She very well may have acute kidney injury presently based on comparison to prior available labs from January of last year. Follows with Dr. Benz in [place]. Status: Chronic (4) Hypokalemia: Chronic issue with current potassium levels consistent with usual values upon presentation, missed her weekly infusion of potassium due to being here visiting family/friends rather than in [place] where she now lives, certainly a contributor to #1. Also known to have chronic hypomagnesemia with every other week magnesium infusions. Current magnesium level 1.8. Status: Chronic (5) Hypertrophy of bone of hand: Most notable at second left and fifth right PIP concerning for tophi development not only based on appearance but also sensitivity to palpation, not known to have gout but certainly at risk for such Status: Acute (6) Crohn's disease: Status post total colectomy and ileostomy with associated malabsorption and protein calorie malnutrition issues chronically Status: Chronic Qualifiers: Digestive disease complication type: other complication Gastrointestinal tract location: small and large intestine Qualified Code(s): K50.818 - Crohn's disease of both small and large intestine with other complication (7) Ventricular tachycardia (paroxysmal): Paroxysmal, related to electrolyte abnormalities Status: Chronic (8) Chronic anticoagulation: Coumadin, unclear reason, though may be due to paroxysmal arrhythmia Status: Chronic (9) BMI less than 19,adult: Status: Chronic Plan Observation admission for now IV Potassium replacement IV fluids Check phosphorus and uric acid levels Urinalysis with electrolytes pending Monitor need to replace magnesium Continue home oral potassium and magnesium Monitor volume status Repeat BMP and mag level in the morning ED physician discussed with on-call nephrology who will see patient Telemetry monitoring Check INR Continue home warfarin pending INR results Continue home aspirin and statin Check CK level Continue home gabapentin and tramadol Regular diet as tolerated Coumadin should provide appropriate VTE prophylaxis Supportive care otherwise Plans discussed with patient and she was given an opportunity to ask questions Recommended to patient that, when able, when she presents to the hospital acutely, she should try to bring her most recent electrolytes to facilitate care. She is going to see if she can get somebody to get her most recent labs from her apartment tonight. Anticipate discharge home with outpatient follow-up Full code Attestations Medical Necessity Statement*: Currently anticipate a stay less than two midnights in a patient with complaints and comorbid conditions as described. She has laboratory abnormalities consistent with her chronic medical problems. She missed her weekly dose of potassium infusion this week due to visiting friends and family. Replace potassium and monitor response with repeat evaluation in the morning. Coding Level of Care Code Acute Leather Production Artisan for Chg Fwd Diagnoses Generalized weakness R53.1 Fluid retention R60.9 Chronic kidney disease N18.9 Hypokalemia E87.6 Crohn's disease K50.818 Digestive disease complication type: other complication Gastrointestinal tract location: small and large intestine BMI less than 19,adult Z68.1 Ventricular tachycardia (paroxysmal) I47.2 Hypertrophy of bone of hand M89.349 Chronic anticoagulation Z79.01
[2021-08-16 20:32] VITALS: BP 122/93; PULSE 84; RESP 16; O2SAT 96
[2021-08-16 21:12] VITALS: BP 122/93; PULSE 84; RESP 16; O2SAT 96
[2021-08-16] MEDS: atorvastatin 40 mg Tablet 20 MG PO (21:34)
[2021-08-16] MEDS: gabapentin 400 mg Capsule 800 MG PO (21:34)
[2021-08-16] MEDS: TRAMadol 50 mg Tablet PO (21:47)
[2021-08-16] MEDS: promethazine 25 mg Tablet PO (21:47)
[2021-08-16 21:53] VITALS: BP 110/47; PULSE 162; RESP 16; TEMP 36.4; O2SAT 90
--- NOTE | 2021-08-16 22:24 | PC.NURSE ---
Patient states that she quit dialysis several months ago and that her dialysis site/port has been removed.
[2021-08-16 23:20] LABS: Add Urine Microscopic? YES; Bilirubin Urine Neg (Negative); Blood Urine Trace (Negative); Glucose Urine UA Norm (Normal); Ketones Urine Negative (Negative); Leukocyte Esterase Urine Negative (Negative); Nitrate Urine Negative (Negative); Protein Urine Trace (Negative); Sulfosalicylic Acid Urine Positive (Negative); Urine Appearance Clear (CLEAR); Urine Color Yellow (Yellow); Urobilinogen Urine Norm (Negative); pH Urine 9 (5-7)
[2021-08-16 23:21] LABS: Add Urine Culture? No; RBC Urine 0-4 /hpf (0-2); Squamous Epithelial Cell Urine 0-4 /hpf (0-5); WBC Urine 0-4 /hpf (0-5)
[2021-08-16] MEDS: sodium chlor 0.9% + KCl 40 mEq 40 MEQ/1,000 ML BAG 75 MEQ IV (23:25)
[2021-08-16 23:37] LABS: Creatinine Urine, Random 83 mg/dL (28-217); Urine Random Sodium 80 mmol/L
[2021-08-17] VITALS (9 sets, daily range): BP systolic 85–122; BP diastolic 51–72; PULSE 83–94; RESP 16–17; TEMP 36.3–36.8; O2SAT 92–97
--- NOTE | 2021-08-17 00:38 | PC.NURSE ---
Dr. Kumar notified of patient c/o muscle cramps in legs 10/09.
[2021-08-17] MEDS: ALPRAZolam 0.5 mg Tablet 0.125 MG PO (01:13)
--- NOTE | 2021-08-17 02:18 | PC.NURSE ---
Patient has redness and scarring to sacrum. Patient states, I get bed sores easy. Patient has been 1 assist to bathroom and turn herself in bed.
[2021-08-17 05:20] LABS: Basophils % 0.6 %; Eosinophils # 0.2 10^3/uL (0.0-0.8); Eosinophils % 2.9 %; Hematocrit 26.5 % (37.0-47.0); Hemoglobin 8.8 g/dL (11.5-15.3); Lymphocytes # 1.5 10^3/uL (0.8-4.8); Lymphocytes % 20.6 %; Mean Corpuscular HGB Conc 33.2 g/dL (30.0-36.0); Mean Corpuscular Hemoglobin 31.4 pg (28.0-34.0); Mean Corpuscular Volume 94.6 fl (81-99); Mean Platelet Volume 11.2 fL (7.4-10.4); Monocytes # 0.9 10^3/uL (0.2-0.9); Monocytes % 11.9 %; Neutrophils % 63.7 %; Nucleated Red Blood Cells % 0 %; Platelet Count 211 10^3/cmm (130-400); Red Cell Distribution Width 14.6 % (12.1-15.1); White Blood Count 7.2 10^3/uL (4.0-10.0)
[2021-08-17 06:24] LABS: Anion Gap 13.3 (5-19); Blood Urea Nitrogen 32 mg/dL (8-23); Calcium 9.1 mg/dL (8.5-10.5); Chloride 79 mmol/L (98-107); Creatine Phosphokinase 88 U/L (26-192); Glucose 82 mg/dL (65-115); NT Pro B Type Natriuretic Pept 1448 pg/mL (0-125); Osmolality Calculated 286 mOsm/kg (285-295); Potassium 5.3 mmol/L (3.5-5.1); Sodium 135 mmol/L (136-145); Uric Acid 18.4 mg/dL (2.4-5.7)
[2021-08-17 06:30] LABS: Carbon Dioxide 48 mmol/L (22-29)
[2021-08-17] MEDS: potassium chloride ER 20 mEq Tablet 40 MEQ PO (08:36)
[2021-08-17] MEDS: aspirin 81 mg EC Tablet PO ×2 (08:36→17:18)
[2021-08-17] MEDS: gabapentin 400 mg Capsule 800 MG PO ×3 (08:36→19:46)
[2021-08-17] MEDS: magnesium oxide 400 mg tablet 800 MG PO ×2 (08:36→17:18)
[2021-08-17] MEDS: promethazine 25 mg Tablet PO ×2 (08:44→19:46)
--- NOTE | 2021-08-17 09:22 | P.CONIM_ITS ---
Providers/Reason For Consult Consulting Physician/Specialty*: Nephrology Reason for Consult*: LUIS ALFREDO on CKD Attending Physician: Cody Johns MD Primary Care Provider: Veda Gilman MD History of Present Illness History of Present Illness Thank for consultation, today the pleasure of reviewing this 71-year-old female for evaluation of acute kidney injury in the setting of chronic kidney disease. She is known to have stage IV-V chronic kidney disease. Back in January 2021 serum creatinine was 4 mg/dL equating to eGFR 11 mL/min. She reports that roughly 2 weeks ago she ran out of tramadol and so has been taking extra strength ibuprofen 2 tablets 4 times a day. This is likely to be 800 mg 4 times a day. She does have an ostomy secondary to prior colectomy from Crohn's disease. She reports the output from the ostomy has been normal. She has been gaining a little bit of weight over the last week or 2. Feeling weak. Yesterday she did have a little bit of confusion but no other overt uremic symptoms. She is eating and drinking normally today. Hemodynamics appear stable. No other exposures to potentially nephrotoxic substances Medications/Allergies Home Medications Medication Instructions Recorded Confirmed Last Taken Type acetaminophen 500 mg tablet 1,000 mg PO PRN 04/30/20 08/16/21 08/02/20 History (Tylenol Extra Strength) albuterol sulfate 90 mcg/actuation 2 puff INHALATION Q4H PRN 04/30/20 08/16/21 09/12/20 History aerosol inhaler (Ventolin HFA) atorvastatin 20 mg tablet 20 mg PO BEDTIME 04/30/20 08/16/21 09/12/20 History magnesium oxide 400 mg (241.3 mg 800 mg PO BID 04/30/20 08/16/21 08/15/21 History magnesium) tablet [facility] Joint Brace #1 ea 05/08/20 08/16/21 Unknown Rx MAGNESIUM SULFATE See Rx Instructions .ROUTE 08/29/20 08/16/21 Unknown Rx .COMPLEX #2 g ostomy wipes #100 ea 10/25/20 08/16/21 Unknown Rx tramadol 50 mg tablet 50 mg PO Q6H PRN #120 tab 10/25/20 08/16/21 08/15/21 Rx aspirin 81 mg tablet,delayed 81 mg PO BID 08/16/21 08/16/21 08/15/21 History release gabapentin 400 mg capsule 800 mg PO TID 08/16/21 08/16/21 08/15/21 History potassium chloride 20 mEq 40 meq PO BID 08/16/21 08/16/21 08/15/21 History tablet,extended release(part/cryst) (Klor-Con M) promethazine 25 mg tablet 25 mg PO BID PRN 08/16/21 08/16/21 08/15/21 History warfarin 1 mg tablet 1 mg PO DAILY 08/16/21 08/16/21 08/15/21 History Allergies Allergy/AdvReac Type Severity Reaction Status Date / Time amoxicillin Allergy ALGY-Hives Verified 08/16/21 18:39 cefazolin [From Ancef] Allergy ALGY-Rash Verified 08/16/21 18:39 cephalexin [From Keflex] Allergy ALGY-Rash Verified 08/16/21 18:39 codeine Allergy ALGY-Hives Verified 08/16/21 18:39 doxycycline Allergy ALGY-Hives Verified 08/16/21 18:39 erythromycin base Allergy ALGY-Hives Verified 08/16/21 18:39 [From E.E.S.] latex Allergy Unknown Verified 08/16/21 18:39 metoclopramide Allergy Unknown Verified 08/16/21 18:39 neomycin Allergy ALGY-Hives Verified 08/16/21 18:39 Penicillins Allergy ALGY-Hives Verified 08/16/21 18:39 polyethylene glycol Allergy ADR-Swelling Verified 08/16/21 18:39 of the Eye pregabalin [From Lyrica] Allergy ALGY-Swell Verified 08/16/21 18:39 Lip/Tongue/Throat prochlorperazine Allergy ALGY-Hives Verified 08/16/21 18:39 [From Compazine] propoxyphene [From Darvon] Allergy ALGY-Hives Verified 08/16/21 18:39 sapropterin Allergy ADR-Swelling Verified 08/16/21 18:39 [From Tetrahydrobiopterin of the Eye Di-HCL] scopolamine Allergy ALGY-Hives Verified 08/16/21 18:39 Sulfa (Sulfonamide Allergy ALGY-Hives Verified 08/16/21 18:39 Antibiotics) tegaserod [From Zelnorm] Allergy ALGY-Hives Verified 08/16/21 18:39 tetracycline Allergy ALGY-Hives Verified 08/16/21 18:39 tetrahydrozoline Allergy ADR-Swelling Verified 08/16/21 18:39 [From Visine] of the Eye Current Medications Generic Name Dose Route Start Last Admin Trade Name Freq PRN Reason Stop Dose Admin Aspirin 81 mg 08/17/21 09:00 08/17/21 08:36 Aspirin 81 Mg Ec Tablet PO 81 mg BID SERENITY Administration Atorvastatin Calcium 20 mg 08/16/21 21:20 08/16/21 21:34 Atorvastatin 40 Mg Tablet PO 20 mg BEDTIME SERENITY Administration Gabapentin 800 mg 08/16/21 21:20 08/17/21 08:36 Gabapentin 400 Mg Capsule PO 800 mg TID SERENITY Administration Magnesium Oxide 800 mg 08/17/21 09:00 08/17/21 08:36 Magnesium Oxide 400 Mg Tablet PO 800 mg BID SERENITY Administration Promethazine HCl 25 mg 08/16/21 21:20 08/17/21 08:44 Promethazine 25 Mg Tablet PO 25 mg BID PRN Administration Nausea Tramadol HCl 50 mg 08/16/21 21:20 08/16/21 21:47 Tramadol 50 Mg Tablet PO 50 mg Q6H PRN Administration MODERATE TO SEVERE PAIN PFSH Acute PFSH: Medical History (Updated 08/17/21 @ 01:35 by Karin Kumar MD) Atrial fibrillation not chronic Autonomic neuropathy BMI less than 19,adult Chronic anemia mixed B12 and iron deficiency 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 Baseline creatinine in 2020 records here 2.0-4.0. Has required hemodialysis in past during times of acute illness. Follows with Dr Benz. Creatinine has been as high as 17 in setting of severe pre-renal azotemia. COVID-19 (~10/2019) Crohn's disease s/p total colectomy (1980) with ileostomy (2002) History of MRSA infection History of pelvic fracture Hyperaldosteronism At at least one point in time felt secondary to aldactone rather than primary Hyperlipidemia Hypersomnia Hypokalemia chronically on IV infusions of potassium and magnesium Hypomagnesemia chronic Local infection due to Port-A-Cath (~2019) Myocardial infarction (lateral wall) Appears to have been identified during a prolonged hospital stay and possibly type II process. Had not required cardiac intervention. Osteoarthritis Osteoporosis Peripheral neuropathy Raynauds syndrome Severe protein-calorie malnutrition Short gut syndrome Stage III pressure ulcer Systolic congestive heart failure Diagnosed in 04/2019 at [facility] during a time of prolonged hospital care. Multiple echocardiograms show preserved EF 50-60% since that time. Appears to have been a transient issue related to acute medical issues at that time. Ventricular tachycardia (paroxysmal) related to electrolyte abnormalities Vitamin B12 deficiency Surgical History (Updated 08/16/21 @ 20:26 by Karin Kumar MD) H/O ileostomy (~2002) H/O total colectomy (~2002) History of arthrodesis (08/03/18) right index finger History of delivery x4 History of hernia repair History of right hip replacement (~08/2019) History of tubal ligation Hx of appendectomy Port-A-Cath in place (10/12/19) right IJ Status post open reduction and internal fixation (ORIF) of fracture (12/22/19) left radius, Irina Status post open reduction and internal fixation (ORIF) of fracture (11/2019) right humerus, Irina Status post open reduction and internal fixation (ORIF) of fracture right hip Family History Other CAD (coronary artery disease) Cancer Congestive heart failure Diabetes Hyperlipidemia Social History (Updated 08/17/21 @ 01:13 by Karin Kumar MD) Smoking and tobacco status: never smoked Second hand smoke exposure: No Alcohol intake: never Substance/Drug Use: never Current occupational status: retired Vitals/I&O/Wt Last Vital Signs Temp 98.3 F 08/17/21 07:28 Pulse 91 08/17/21 09:03 Resp 16 08/17/21 09:03 BP 93/54 08/17/21 07:28 Pulse Ox 94 08/17/21 09:03 08/16/21 08/17/21 08/17/21 22:59 06:59 14:59 Intake Total 38.75 / 38.75 900 / 938.75 Output Total 200 / 200 200 / 400 Balance -161.25 / -161.25 700 / 538.75 Weight last 48 hrs Weight 38.419 kg Weight 37.648 kg Weight 31.751 kg Physical Exam Narrative: Constitutional: Awake, comfortable HEENT: Wet mucosa, no jvp, non icteric Lungs: Bilaterally clear without discernible wheeze or rales in all lung zones CVS: S1 S2, no murmurs Abdo: Soft, BS ok, ostomy noted Ext 4: Minimal edema, peripheral perfusion with no cyanosis Neurological: Grossly non-focal Data : 08/17/21 04:17 08/17/21 04:17 A&P Assessment and plan (1) Acute kidney injury superimposed on CKD: Status: Acute Plan 1. Acute on chronic kidney disease Baseline creatinine 4 mg/dL, presenting with creatinine of 5.6 now slightly increased to 6 mg/dL. Likely to be analgesics that have now tipped her kidneys over the edge into failure. Obviously we are holding these medications now. Clinically euvolemic today, no indication for either diuretics or intravenous fluids. Close monitoring over the weekend, if she does not require hemodialysis, hopefully she can make enough recovery to be safely discharged to Dr. Benz. Any further deterioration will likely warrant initiation of hemodialysis. Will initiate a limited work-up to include renal sonogram, urinalysis with urinary sodium, urinary creatinine Avoid usual nephrotoxins Dose medication GFR is less than 15 Strict I's and O's 2. Chemistry Typically low potassium and low magnesium. She presented with a magnesium of 1.8 and is currently on oral replacement therapy. We do need to watch for a high ostomy output with oral magnesium. Potassium replacement now stopped given potassium of 5.3. Close monitoring of hemodynamics 3. Chronic pain She perseverated about her chronic pain and her need for tramadol. I see it prescribed as needed I have reiterated the importance of avoidance of potentially nephrotoxic substances. Thank you for consultation, it is a pleasure to follow these cases with you Exam and interview performed with aid of bedside RN using telemedicine Time spent 20 min inc > 50% of time in face to face counseling Adeel Siddiqui MD [facility] [phone] Coding Level of Care Code Acute Commercial Specialist for Chg Fwd Diagnoses Acute kidney injury superimposed on CKD N17.9; N18.9
[2021-08-17] MEDS: TRAMadol 50 mg Tablet PO ×2 (12:32→19:45)
[2021-08-17] MEDS: warfarin 2 mg Tablet PO (15:04)
[2021-08-17 15:05] LABS: Add Urine Microscopic? NO; Charge for UA Resulting for Rev
--- NOTE | 2021-08-17 15:13 | P.PN_ITS ---
Subjective Subjective: Patient was seen this morning, she tells me that she takes her Coumadin for atrial fibrillation, she is not sure how long she has been on it for, she is not sure the dose, she tells me that she lives in [place], she is here for a wedding, she has been taking Tylenol, she has been out of her tr amadol for pain, she has some degree of a sacral ulcer she tells me that her bothers her intermittently, she has liquid output from her colostomy which is normal for her, no fevers, chills, no chest pain she denies any significant weight loss recently, although her BMI is 15.5, no nausea, no vomiting, no fevers, no chest pain Vitals/I&O/Wt Last Vital Signs Temp 97.7 F 08/17/21 12:00 Pulse 89 08/17/21 12:00 Resp 17 08/17/21 12:00 BP 122/72 08/17/21 12:00 Pulse Ox 92 08/17/21 12:00 08/17/21 08/17/21 08/17/21 06:59 14:59 22:59 Intake Total 900 / 938.75 120 / 120 Output Total 200 / 400 150 / 150 Balance 700 / 538.75 -30 / -30 Weight last 48 hrs Weight 38.419 kg Weight 37.648 kg Weight 31.751 kg Physical Exam Const: COMMON NORMALS: no acute distress and patient oriented x3 Neck/C-Spine: COMMON NORMALS: no JVD Resp: COMMON NORMALS: normal respiratory effort, No retractions, No use of accessory muscles and clear to auscultation bilaterally AUSCULTATION: clear to auscultation bilaterally Cardio: COMMON NORMALS: no JVD, regular rate, regular rhythm, S1 normal heart sound present and S2 normal heart sound present RATE: regular rate RHYTHM: regular rhythm HEART SOUNDS: S1 normal heart sound present and S2 normal heart sound present GI: COMMON NORMALS: Normal to inspection, nondistended, normoactive bowel sounds present, Soft to palpation and non-tender PALPATION: Yes Soft to palpation OTHER: Colostomy present, liquid stool output Extremity: COMMON NORMALS: no pedal edema Neuro: COMMON NORMALS: patient oriented x3 Psych: COMMON NORMALS: mental status grossly normal Data : 08/17/21 04:17 08/17/21 04:17 A&P Assessment and plan (1) Generalized weakness: Presenting complaint Status: Acute (2) Fluid retention: Presenting complaint although not evident on examination without having prior experience for comparison, reported 10 pound weight gain in the last 2 days and decreased urine output Status: Acute (3) Chronic kidney disease: At least stage 3, likely 3B. Specific stage not clear to me at this point in time. She indicates that her kidney function has been progressively worsening but does not know what her more recent labs have shown. She very well may have acute kidney injury presently based on comparison to prior available labs from January of last year. Follows with Dr. Benz in [place]. Status: Chronic (4) Hypokalemia: Chronic issue with current potassium levels consistent with usual values upon presentation, missed her weekly infusion of potassium due to being here visiting family/friends rather than in [place] where she now lives, certainly a contributor to #1. Also known to have chronic hypomagnesemia with every other week magnesium infusions. Current magnesium level 1.8. Status: Chronic (5) Hypertrophy of bone of hand: Most notable at second left and fifth right PIP concerning for tophi development not only based on appearance but also sensitivity to palpation, not known to have gout but certainly at risk for such Status: Acute (6) Crohn's disease: Status post total colectomy and ileostomy with associated malabsorption and protein calorie malnutrition issues chronically Status: Chronic Qualifiers: Digestive disease complication type: other complication Gastrointestinal tract location: small and large intestine Qualified Code(s): K50.818 - Crohn's disease of both small and large intestine with other complication (7) Ventricular tachycardia (paroxysmal): Paroxysmal, related to electrolyte abnormalities Status: Chronic (8) Chronic anticoagulation: Coumadin, unclear reason, though may be due to paroxysmal arrhythmia Status: Chronic (9) BMI less than 19,adult: Status: Chronic Plan Observation admission for now IV Potassium replacement IV fluids Elevated uric acid levels, likely secondary to anorexia, I would avoid c olchicine, would avoid allopurinol Monitor need to replace magnesium Continue home oral potassium and magnesium Monitor volume status Repeat BMP and mag level in the morning Nephrology on consult Elevated creatinine, 6, likely secondary to nephrotoxic agents, hold, IV fluids Monitor ostomy output, likely etiology between hypokalemia, hypomagnesemia, short-bowel Telemetry monitoring INR low, will dose Coumadin appropriately Continue home aspirin and statin Continue home gabapentin and tramadol Regular diet as tolerated Coumadin should provide appropriate VTE prophylaxis Supportive care otherwise Plans discussed with patient and she was given an opportunity to ask questions Recommended to patient that, when able, when she presents to the hospital acutely, she should try to bring her most recent electrolytes to facilitate care. She is going to see if she can get somebody to get her most recent labs from her apartment tonight. Anticipate discharge home with outpatient follow-up Full code Attestations Medical Necessity Statement*: Patient requires hospitalization for LUIS ALFREDO, hypokalemia, hypomagnesemia, chronic pain, elevated creatinine Coding Level of Care Code Acute Stores [employer] for Chg Fwd Diagnoses Generalized weakness R53.1 Fluid retention R60.9 Chronic kidney disease N18.9 Hypokalemia E87.6 Hypertrophy of bone of hand M89.349 Crohn's disease K50.818 Digestive disease complication type: other complication Gastrointestinal tract location: small and large intestine Ventricular tachycardia (paroxysmal) I47.2 Chronic anticoagulation Z79.01 BMI less than 19,adult Z68.1
[2021-08-17 15:26] LABS: Blood Urine Neg (Negative); Glucose Urine UA Norm (Normal); Ketones Urine Negative (Negative); Protein Urine Neg (Negative); Urine Appearance Clear (CLEAR); Urine Color Straw (Yellow); pH Urine 9 (5-7)
[2021-08-17 15:27] LABS: Bilirubin Urine Neg (Negative); Leukocyte Esterase Urine Negative (Negative); Nitrate Urine Negative (Negative); Sulfosalicylic Acid Urine Positive (Negative); Urobilinogen Urine Norm (Negative)
[2021-08-17 15:45] LABS: Creatinine Urine, Random 83 mg/dL (28-217); Urine Random Sodium 59 mmol/L
[2021-08-17] MEDS: atorvastatin 40 mg Tablet 20 MG PO (19:46)
[2021-08-18] VITALS (10 sets, daily range): BP systolic 85–118; BP diastolic 53–75; PULSE 81–113; RESP 16–18; TEMP 36.4–36.9; O2SAT 94–97
[2021-08-18 05:35] LABS: Basophils % 0.5 %; Eosinophils # 0.3 10^3/uL (0.0-0.8); Eosinophils % 4.6 %; Hematocrit 31.5 % (37.0-47.0); Hemoglobin 10.4 g/dL (11.5-15.3); Lymphocytes # 1.6 10^3/uL (0.8-4.8); Lymphocytes % 24.7 %; Mean Corpuscular Volume 96.9 fl (81-99); Mean Platelet Volume 10.7 fL (7.4-10.4); Monocytes # 0.7 10^3/uL (0.2-0.9); Monocytes % 10.5 %; Neutrophils # 3.74 10^3/uL (1.8-7.7); Neutrophils % 59.5 %; Nucleated Red Blood Cells % 0 %; Platelet Count 231 10^3/cmm (130-400); Red Blood Count 3.25 10^6/uL (4.1-5.3); White Blood Count 6.3 10^3/uL (4.0-10.0)
[2021-08-18 05:44] LABS: INR 0.95 (0.8-1.2)
[2021-08-18 05:48] LABS: Alanine Aminotransferase 7 U/L (0-33); Albumin Level 3.9 g/dL (3.5-5.2); Alkaline Phosphatase 104 IU/L (35-105); Anion Gap 11.9 (5-19); Aspartate Amino Transferase 26 U/L (0-32); Blood Urea Nitrogen 32 mg/dL (8-23); Calcium 9.7 mg/dL (8.5-10.5); Chloride 78 mmol/L (98-107); Globulin 3.3 g/dL (1.3-4.6); Glucose 107 mg/dL (65-115); Magnesium 2.1 mg/dL (1.7-2.3); Osmolality Calculated 281 mOsm/kg (285-295); Phosphorus 4.8 mg/dL (2.5-4.5); Potassium 5.9 mmol/L (3.5-5.1); Sodium 132 mmol/L (136-145); Total Bilirubin 0.5 mg/dL (0.15-1.2); Total Protein 7.2 g/dL (6.6-8.7); Uric Acid 18.3 mg/dL (2.4-5.7)
[2021-08-18 05:55] LABS: Carbon Dioxide 48 mmol/L (22-29)
--- NOTE | 2021-08-18 09:01 | USR_ITS ---
PROCEDURE INFORMATION: Exam: US Retroperitoneal; Complete; Kidneys and Bladder Exam date and time: 08/18/2021 9:39 AM Age: 71 years old Clinical indication: Renal failure TECHNIQUE: Imaging protocol: Real-time ultrasound of the retroperitoneum with image documentation. Complete exam focused on the kidneys and bladder. COMPARISON: US Renal Kidney Structu* [id number] 08/27/2016 12:39 PM FINDINGS: The right kidney measures 7.1 x 2.8 x 3.6 cm. No suspicious mass or hydronephrosis. The left kidney measures 8.8 x 4.0 x 4.5 cm. No suspicious mass or hydronephrosis. The visualized aorta is grossly normal in caliber. The visualized bladder is grossly unremarkable. The IVC is not visualized. US/US renal BI* [id number] IMPRESSION: No acute abnormality identified.
[2021-08-18] MEDS: sodium chloride 0.9% 1,000 ML 75 ML IV ×2 (09:13→21:32)
--- NOTE | 2021-08-18 09:16 | P.PN_ITS ---
Subjective Subjective: Ms Gallegos is starting to feel tremulous with obvious asterixis now. Urine output is poor. Potassium noted to be elevated. Renal function unchanged. No extremity edema or other hypervolemic symptoms. Vitals/I&O/Wt Last Vital Signs Temp 97.8 F 08/18/21 07:26 Pulse 81 08/18/21 07:26 Resp 16 08/18/21 07:26 BP 85/57 08/18/21 07:26 Pulse Ox 97 08/18/21 03:57 08/17/21 08/18/21 08/18/21 22:59 06:59 14:59 Intake Total 1200 / 2320 Output Total 600 / 750 350 / 1100 Balance 600 / 1570 -350 / 1220 Weight last 48 hrs Weight 41.413 kg Weight 38.419 kg Weight 37.648 kg Weight 31.751 kg Physical Exam Narrative: Constitutional: Awake, comfortable HEENT: Wet mucosa, no jvp, non icteric Lungs: Bilaterally clear without discernible wheeze or rales in all lung zones CVS: S1 S2, no murmurs Abdo: Soft, BS ok, ostomy noted Ext 4: Minimal edema, peripheral perfusion with no cyanosis Neurological: Grossly non-focal Data : 08/18/21 05:20 08/18/21 05:20 A&P Assessment and plan (1) Acute kidney injury superimposed on CKD: Status: Acute Plan 1. Acute on chronic kidney disease Baseline creatinine 4 mg/dL, presenting with creatinine of 5.6 now slightly increased to 6 mg/dL and no recovery yet Likely to be analgesics that have now tipped her kidneys over the edge into failure. Obviously we are holding these medications now. Gentle ivf Renal sono pending for the asterixis I will give some Xanax I have given her erasto counseling regarding her very poor kidney function. I will keep her n.p.o. tonight as we may need to have tunneled dialysis catheter placed tomorrow depending on INR. If she does not recover kidney functionality by tomorrow then I will commit her to long-term dialysis. I did speak to her about hospice if she chooses not to undergo dialysis. Avoid usual nephrotoxins Dose medication GFR is less than 15 Strict I's and O's 2. Chemistry HyperK, kayexalate x 1 repeat labs later today Thank you for consultation, it is a pleasure to follow these cases with you Exam and interview performed with aid of bedside RN using telemedicine Time spent 20 min inc > 50% of time in face to face counseling Adeel Siddiqui MD [facility] [phone] Attestations Medical Necessity Statement*: eval for LUIS ALFREDO Coding Level of Care Code Acute Certified Medication Technician for Chg Fwd Diagnoses Acute kidney injury superimposed on CKD N17.9; N18.9
[2021-08-18] MEDS: aspirin 81 mg EC Tablet PO ×2 (09:19→16:59)
[2021-08-18] MEDS: gabapentin 400 mg Capsule 800 MG PO ×3 (09:20→21:32)
[2021-08-18] MEDS: promethazine 25 mg Tablet PO (09:20)
[2021-08-18] MEDS: TRAMadol 50 mg Tablet PO ×2 (09:20→15:08)
[2021-08-18] MEDS: ALPRAZolam 0.5 mg Tablet PO (09:21)
[2021-08-18] MEDS: sodium polystyrene sulfonate 15 gm/60 mL Btl PO (09:21)
--- NOTE | 2021-08-18 13:34 | P.PN_ITS ---
Subjective Subjective: Patient was seen this morning, she is having a renal ultrasound, denies any fevers, no chills, no chest palpitations, no lightheadedness, she is receiving fluids Vitals/I&O/Wt Last Vital Signs Temp 97.8 F 08/18/21 11:18 Pulse 86 08/18/21 13:09 Resp 18 08/18/21 13:09 BP 95/59 08/18/21 11:18 Pulse Ox 94 08/18/21 13:09 08/17/21 08/18/21 08/18/21 22:59 06:59 14:59 Intake Total 1200 / 2320 Output Total 600 / 750 350 / 1100 500 / 500 Balance 600 / 1570 -350 / 1220 -500 / -500 Weight last 48 hrs Weight 41.413 kg Weight 38.419 kg Weight 37.648 kg Weight 31.751 kg Physical Exam Const: COMMON NORMALS: no acute distress and patient oriented x3 Resp: COMMON NORMALS: normal respiratory effort, No retractions, No use of accessory muscles and clear to auscultation bilaterally AUSCULTATION: clear to auscultation bilaterally Cardio: COMMON NORMALS: regular rate, regular rhythm, S1 normal heart sound present and S2 normal heart sound present RATE: regular rate RHYTHM: regular rhythm HEART SOUNDS: S1 normal heart sound present and S2 normal heart sound present GI: COMMON NORMALS: Normal to inspection, nondistended, normoactive bowel sounds present, Soft to palpation and non-tender PALPATION: Yes Soft to palpation Extremity: COMMON NORMALS: no pedal edema Neuro: COMMON NORMALS: patient oriented x3 Psych: COMMON NORMALS: mental status grossly normal Data : 08/18/21 05:20 08/18/21 05:20 A&P Assessment and plan (1) Acute kidney injury superimposed on CKD: Status: Acute Plan Generalized weakness, likely secondary to renal failure Fluid retention, none currently Acute kidney injury on chronic kidney disease, creatinine remained 6 -Receiving IV fluids -Keep n.p.o. midnight, if creatinine does not improve, plans on dialysis catheter placement -Hold Coumadin Hyperkalemia, has received replacement, recheck BMP Bigeminy, on telemetry monitoring, will order serial EKGs, serial troponins recheck electrolytes -Has a history of ventricular tachycardia Hypertrophy of bone and hand, currently not complaining of any pain Hypomagnesemia, currently within normal limits Hypokalemia, none currently History of Crohn's disease, short-bowel syndrome, ileostomy in place, resulting in malabsorption 40-calorie malnutrition Protein calorie malnutrition, anorexia History of atrial fibrillation, on Coumadin, hold Coumadin, issues with noncompliance Attestations Medical Necessity Statement*: Patient requires hospitalization for acute renal failure Coding Level of Care Code Acute Supervisor Chassis Assembly for Chg Fwd Diagnoses Acute kidney injury superimposed on CKD N17.9; N18.9
--- NOTE | 2021-08-18 13:34 | ECG_ITS ---
[facility] Test Date: 2021-08-18 Pat Name: Janene Gallegos Department: Room: 259 Gender: Female Bladder Trimmer: : 1950 Requested By: Cody Johns Order Number: [id number] Reading MD: Sara Arango M.D. Measurements Intervals [place] Rate: 98 P: 148 ID: [id number] QRS: 142 QRSD: 84 T: 150 QT: 357 QTc: 457 Interpretive Statements SINUS RHYTHM WITH OCCASIONAL VENTRICULAR PREMATURE COMPLEXES ARM LEADS REVERSED [INVERTED P AND QRS IN I] Compared to ECG 08/16/2021 16:54:53 No significant changes Electronically Signed On 08-19-2021 21:26:42 CDT by Sara Arango M.D. [id number]
--- NOTE | 2021-08-18 14:03 | PC.NURSE ---
Held warfarin per Dr. Johns, for possible dialysis catheter placement in am.
[2021-08-18 14:58] LABS: Magnesium 1.8 mg/dL (1.7-2.3)
[2021-08-18 14:59] LABS: Blood Urea Nitrogen 31 mg/dL (8-23); Calcium 9.5 mg/dL (8.5-10.5); Chloride 76 mmol/L (98-107); Glucose 112 mg/dL (65-115); Osmolality Calculated 283 mOsm/kg (285-295); Sodium 133 mmol/L (136-145)
[2021-08-18 15:00] LABS: Troponin(5th) Baseline 39 ng/L (0-10)
[2021-08-18 15:03] LABS: Anion Gap 14.1 (5-19); Potassium 4.1 mmol/L (3.5-5.1)
[2021-08-18 15:06] LABS: Carbon Dioxide 47 mmol/L (22-29)
--- NOTE | 2021-08-18 15:34 | ECG_ITS ---
[facility] Test Date: 2021-08-18 Pat Name: Janene Gallegos Department: Room: 259 Gender: Female Research Administrator: : 1950 Requested By: Cody Johns Order Number: [id number] Santino MD: Sara Arango M.D. Measurements Intervals [place] Rate: 103 P: 66 VA: 141 QRS: 15 QRSD: 74 T: 64 QT: 353 QTc: 464 Interpretive Statements SINUS TACHYCARDIA LEFT ATRIAL ENLARGEMENT [-0.15mV P-WAVE IN V1/V2] POSSIBLE RIGHT VENTRICULAR CONDUCTION DELAY [RSR (QR) IN V1/V2] Compared to ECG 08/18/2021 14:12:12 Atrial abnormality now present Sinus rhythm no longer present Ventricular premature complex(es) no longer present Electronically Signed On 08-19-2021 21:32:58 CDT by Sara Arango M.D. [id number]
[2021-08-18 16:36] LABS: Blood Urea Nitrogen 33 mg/dL (8-23); Calcium 9.3 mg/dL (8.5-10.5); Chloride 76 mmol/L (98-107); Glucose 89 mg/dL (65-115); Osmolality Calculated 285 mOsm/kg (285-295); Sodium 134 mmol/L (136-145); Troponin 5 2HR 37.22 ng/L (0-10)
[2021-08-18 16:40] LABS: Troponin 5 2HR Delta -1.78 ABS# (0-10)
[2021-08-18 16:58] LABS: Carbon Dioxide 47 mmol/L (22-29)
--- NOTE | 2021-08-18 19:34 | ECG_ITS ---
[facility] Test Date: 2021-08-18 Pat Name: Janene Gallegos Department: Room: 259 Gender: Female Braid Folder: : 1950 Requested By: Cody Johns Order Number: [id number] Santino MD: Sara Arango M.D. Measurements Intervals [place] Rate: 96 P: 76 AR: 140 QRS: 66 QRSD: 78 T: 79 QT: 368 QTc: 466 Interpretive Statements SINUS RHYTHM WITH OCCASIONAL SUPRAVENTRICULAR PREMATURE COMPLEXES POSSIBLE LEFT ATRIAL ENLARGEMENT [-0.1mV P-WAVE IN V1/V2] POSSIBLE RIGHT VENTRICULAR CONDUCTION DELAY [RSR (QR) IN V1/V2] Compared to ECG 08/18/2021 16:45:05 Sinus tachycardia no longer present Electronically Signed On 08-19-2021 21:31:49 CDT by Sara Arango M.D. [email or web address] point mature adult care unitAirbnbgrand lake joint [id number]
[2021-08-18 20:13] LABS: Troponin 5 6HR 34.85 ng/L (0-10)
[2021-08-18 20:14] LABS: Troponin 5 6HR Delta -4.15 ng/L (0-12)
[2021-08-18] MEDS: atorvastatin 40 mg Tablet 20 MG PO (21:31)
--- NOTE | 2021-08-18 22:25 | PC.NURSE ---
HEMODIALYSIS CATHETER IN ROUNDING WITH PATIENT DURING ASSESSMENT AND MEDS, PT TOLD THIS NURSE THAT SHE HAD MADE UP HER MIND ABOUT THE H.D CATHETER AND DID INDEED WANT TO DO THE PROCEDURE TOMORROW. THIS NURSE ACKNOWLEDGED THE PTS DECISION AND REINFORCED THAT SHE WILL BE NPO AFTER MIDNIGHT.
[2021-08-19] VITALS (20 sets, daily range): BP systolic 95–143; BP diastolic 54–80; PULSE 69–103; RESP 13–32; TEMP 35.9–36.8; O2SAT 90–100
--- NOTE | 2021-08-19 | SCC_ITS ---
Procedure done: 1.? Placement of 16 Scottish 28 cm long AshSplit tunneled hemodialysis catheter right internal jugular vein 2.? Fluoroscopic guidance and interpretation for placement of catheter 3.? Ultrasound guidance to access the right internal jugular vein 55.9 seconds of fluoroscopic guidance, for a cumulative dose of 4.15 mGy, was provided to Dr. Go by the radiology department. C-arm images of the chest were saved for the patient's permanent record. BONYD
[2021-08-19 05:41] LABS: Basophils % 0.6 %; Eosinophils # 0.3 10^3/uL (0.0-0.8); Hematocrit 28.7 % (37.0-47.0); Hemoglobin 9.3 g/dL (11.5-15.3); Lymphocytes # 1.5 10^3/uL (0.8-4.8); Mean Corpuscular HGB Conc 32.4 g/dL (30.0-36.0); Mean Corpuscular Hemoglobin 31.6 pg (28.0-34.0); Mean Corpuscular Volume 97.6 fl (81-99); Mean Platelet Volume 10.8 fL (7.4-10.4); Monocytes # 0.7 10^3/uL (0.2-0.9); Monocytes % 9.6 %; Neutrophils # 4.62 10^3/uL (1.8-7.7); Neutrophils % 64.4 %; Nucleated Red Blood Cells % 0 %; Platelet Count 229 10^3/cmm (130-400); Red Blood Count 2.94 10^6/uL (4.1-5.3); Red Cell Distribution Width 14.9 % (12.1-15.1); White Blood Count 7.2 10^3/uL (4.0-10.0)
[2021-08-19 06:03] LABS: INR 0.93 (0.8-1.2)
[2021-08-19 06:07] LABS: Alanine Aminotransferase 7 U/L (0-33); Albumin Level 3.6 g/dL (3.5-5.2); Alkaline Phosphatase 104 IU/L (35-105); Anion Gap 13.4 (5-19); Aspartate Amino Transferase 22 U/L (0-32); Blood Urea Nitrogen 36 mg/dL (8-23); Chloride 81 mmol/L (98-107); Globulin 3.1 g/dL (1.3-4.6); Glucose 81 mg/dL (65-115); Magnesium 1.7 mg/dL (1.7-2.3); Osmolality Calculated 291 mOsm/kg (285-295); Phosphorus 5.6 mg/dL (2.5-4.5); Potassium 3.4 mmol/L (3.5-5.1); Sodium 137 mmol/L (136-145); Total Bilirubin 0.5 mg/dL (0.15-1.2); Total Protein 6.7 g/dL (6.6-8.7); Uric Acid 16.8 mg/dL (2.4-5.7)
[2021-08-19 06:18] LABS: Carbon Dioxide 46 mmol/L (22-29)
--- NOTE | 2021-08-19 08:58 | PM.PN ---
Subjective Subjective: Ms Gallegos feels slightly tremulous with no additional uremic symptoms at this time. No extremity edema, shortness of breath or other hypervolemic symptoms. Vitals/I&O/Wt Last Vital Signs Temp 98.3 F 08/19/21 07:42 Pulse 84 08/19/21 07:42 Resp 16 08/19/21 07:42 BP 95/54 08/19/21 07:42 Pulse Ox 90 08/19/21 07:42 08/18/21 08/19/21 08/19/21 22:59 06:59 14:59 Intake Total 1754.75 / 1754.75 Output Total 725 / 1225 1150 / 2375 Balance 1029.75 / 529.75 -1150 / -620.25 Weight last 48 hrs Weight 36.514 kg Weight 41.413 kg Physical Exam Narrative: Constitutional: Awake, comfortable HEENT: Wet mucosa, no jvp, non icteric Lungs: Bilaterally clear without discernible wheeze or rales in all lung zones CVS: S1 S2, no murmurs Abdo: Soft, BS ok, ostomy noted Ext 4: Minimal edema, peripheral perfusion with no cyanosis Neurological: Grossly non-focal Data : 08/19/21 05:03 08/19/21 05:03 A&P Assessment and plan (1) Acute kidney injury superimposed on CKD: Status: Acute Plan 1. Acute on chronic kidney disease Baseline creatinine 4 mg/dL, presenting with creatinine of 5.6 now slightly increased to 6 mg/dL and no recovery yet Likely to be analgesics that have now tipped her kidneys over the edge into failure. Tunneled line today and dialysis initiation; gentle settings with increased intensity tomorrow Avoid usual nephrotoxins Dose medication GFR is less than 15 Strict I's and O's 2. Chemistry No critical; dialysis will help to correct 3. 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
--- NOTE | 2021-08-19 09:53 | P.CONIM_ITS ---
Providers/Reason For Consult Consulting Physician/Specialty*: Migue Go MD Reason for Consult*: Placement of tunneled hemodialysis catheter Requesting Physician: Attending Physician: Cody Johns MD Primary Care Provider: Veda Gilman MD History of Present Illness History of Present Illness Ms. Janene Gallegos is a 71 year old female with multiple medical comorbidities and having end-stage renal disease, general surgery was consulted for placement of a tunneled hemodialysis catheter. Patient had a previous Port-A-Cath placed on the right upper chest. Patient was admitted to the hospitalist service with history of malaise. Patient does have chronic kidney disease and has been followed up on by Dr. Benz as an outpatient. Review of Systems General: Reports: 10 or more systems reviewed and unremarkable except in HPI and below Medications/Allergies Home Medications Medication Instructions Recorded Confirmed Last Taken Type acetaminophen 500 mg tablet 1,000 mg PO PRN 04/30/20 08/16/21 08/02/20 History (Tylenol Extra Strength) albuterol sulfate 90 mcg/actuation 2 puff INHALATION Q4H PRN 04/30/20 08/16/21 09/12/20 History aerosol inhaler (Ventolin HFA) atorvastatin 20 mg tablet 20 mg PO BEDTIME 04/30/20 08/16/21 09/12/20 History magnesium oxide 400 mg (241.3 mg 800 mg PO BID 04/30/20 08/16/21 08/15/21 History magnesium) tablet [facility] Joint Brace #1 ea 05/08/20 08/16/21 Unknown Rx MAGNESIUM SULFATE See Rx Instructions .ROUTE 08/29/20 08/16/21 Unknown Rx .COMPLEX #2 g ostomy wipes #100 ea 10/25/20 08/16/21 Unknown Rx tramadol 50 mg tablet 50 mg PO Q6H PRN #120 tab 10/25/20 08/16/21 08/15/21 Rx aspirin 81 mg tablet,delayed 81 mg PO BID 08/16/21 08/16/21 08/15/21 History release gabapentin 400 mg capsule 800 mg PO TID 08/16/21 08/16/21 08/15/21 History potassium chloride 20 mEq 40 meq PO BID 08/16/21 08/16/21 08/15/21 History tablet,extended release(part/cryst) (Klor-Con M) promethazine 25 mg tablet 25 mg PO BID PRN 08/16/21 08/16/21 08/15/21 History warfarin 1 mg tablet 1 mg PO DAILY 08/16/21 08/16/21 08/15/21 History Allergies Allergy/AdvReac Type Severity Reaction Status Date / Time amoxicillin Allergy ALGY-Hives Verified 08/19/21 12:33 cefazolin [From Ancef] Allergy ALGY-Rash Verified 08/19/21 12:33 cephalexin [From Keflex] Allergy ALGY-Rash Verified 08/19/21 12:33 codeine Allergy ALGY-Hives Verified 08/19/21 12:33 doxycycline Allergy ALGY-Hives Verified 08/19/21 12:33 erythromycin base Allergy ALGY-Hives Verified 08/19/21 12:33 [From E.E.S.] latex Allergy Unknown Verified 08/19/21 12:33 metoclopramide Allergy Unknown Verified 08/19/21 12:33 neomycin Allergy ALGY-Hives Verified 08/19/21 12:33 Penicillins Allergy ALGY-Hives Verified 08/19/21 12:33 polyethylene glycol Allergy ADR-Swelling Verified 08/19/21 12:33 of the Eye pregabalin [From Lyrica] Allergy ALGY-Swell Verified 08/19/21 12:33 Lip/Tongue/Throat prochlorperazine Allergy ALGY-Hives Verified 08/19/21 12:33 [From Compazine] propoxyphene [From Darvon] Allergy ALGY-Hives Verified 08/19/21 12:33 sapropterin Allergy ADR-Swelling Verified 08/19/21 12:33 [From Tetrahydrobiopterin of the Eye Di-HCL] scopolamine Allergy ALGY-Hives Verified 08/19/21 12:33 Sulfa (Sulfonamide Allergy ALGY-Hives Verified 08/19/21 12:33 Antibiotics) tegaserod [From Zelnorm] Allergy ALGY-Hives Verified 08/19/21 12:33 tetracycline Allergy ALGY-Hives Verified 08/19/21 12:33 tetrahydrozoline Allergy ADR-Swelling Verified 08/19/21 12:33 [From Visine] of the Eye Current Medications Generic Name Dose Route Start Last Admin Trade Name Freq PRN Reason Stop Dose Admin Aspirin 81 mg 08/17/21 09:00 08/18/21 16:59 Aspirin 81 Mg Ec Tablet PO 81 mg BID SERENITY Administration Atorvastatin Calcium 20 mg 08/16/21 21:20 08/18/21 21:31 Atorvastatin 40 Mg Tablet PO 20 mg BEDTIME SERENITY Administration Gabapentin 800 mg 08/16/21 21:20 08/18/21 21:32 Gabapentin 400 Mg Capsule PO 800 mg TID SERENITY Administration Sodium Chloride 1,000 mls @ 75 mls/hr 08/18/21 09:00 08/18/21 21:32 Sodium Chloride 0.9% IV 75 mls/hr .[id number] SERENITY Administration Promethazine HCl 25 mg 08/16/21 21:20 08/18/21 09:20 Promethazine 25 Mg Tablet PO 25 mg BID PRN Administration Nausea Tramadol HCl 50 mg 08/16/21 21:20 08/18/21 15:08 Tramadol 50 Mg Tablet PO 50 mg Q6H PRN Administration MODERATE TO SEVERE PAIN PFSH Acute PFSH: Medical History Atrial fibrillation not chronic Autonomic neuropathy BMI less than 19,adult Chronic anemia mixed B12 and iron deficiency 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 Baseline creatinine in 2020 records here 2.0-4.0. Has required hemodialysis in past during times of acute illness. Follows with Dr Benz. Creatinine has been as high as 17 in setting of severe pre-renal azotemia. COVID-19 (~10/2019) Crohn's disease s/p total colectomy (1980) with ileostomy (2002) History of MRSA infection History of pelvic fracture Hyperaldosteronism At at least one point in time felt secondary to aldactone rather than primary Hyperlipidemia Hypersomnia Hypokalemia chronically on IV infusions of potassium and magnesium Hypomagnesemia chronic Local infection due to Port-A-Cath (~2019) Myocardial infarction (lateral wall) Appears to have been identified during a prolonged hospital stay and possibly type II process. Had not required cardiac intervention. Osteoarthritis Osteoporosis Peripheral neuropathy Raynauds syndrome Severe protein-calorie malnutrition Short gut syndrome Stage III pressure ulcer Systolic congestive heart failure Diagnosed in 04/2019 at [facility] during a time of prolonged hospital care. Multiple echocardiograms show preserved EF 50-60% since that time. Appears to have been a transient issue related to acute medical issues at that time. Ventricular tachycardia (paroxysmal) related to electrolyte abnormalities Vitamin B12 deficiency Surgical History H/O ileostomy (~2002) H/O total colectomy (~2002) History of arthrodesis (08/03/18) right index finger History of delivery x4 History of hernia repair History of right hip replacement (~08/2019) History of tubal ligation Hx of appendectomy Port-A-Cath in place (10/12/19) right IJ Status post open reduction and internal fixation (ORIF) of fracture (12/22/19) left radius, Irina Status post open reduction and internal fixation (ORIF) of fracture (11/2019) right humerus, Irina Status post open reduction and internal fixation (ORIF) of fracture right hip Family History Other CAD (coronary artery disease) Cancer Congestive heart failure Diabetes Hyperlipidemia Social History Smoking and tobacco status: never smoked Second hand smoke exposure: No Alcohol intake: never Substance/Drug Use: never Current occupational status: retired Vitals/I&O/Wt Last Vital Signs Temp 98.3 F 08/19/21 07:42 Pulse 84 08/19/21 07:42 Resp 16 08/19/21 07:42 BP 95/54 08/19/21 07:42 Pulse Ox 90 08/19/21 07:42 08/18/21 08/19/21 08/19/21 22:59 06:59 14:59 Intake Total 1754.75 / 1754.75 Output Total 725 / 1225 1150 / 2375 Balance 1029.75 / 529.75 -1150 / -620.25 Weight last 48 hrs Weight 80 lb 8 oz Weight 91 lb 4.8 oz Physical Exam Narrative: Patient is conscious alert oriented X3 No apparent distress BMI 15 Head and neck examination PERRLA no masses no cervical lymphadenopathy no jaundice Cardiac examination audible S1-S2 no murmurs no gallops no arrhythmias Chest is clear bilateral,abscence of Rhonchi or wheezes,no surgical emphysema Right upper chest port in place Abdomen nontender nondistended soft no organomegaly guarding or rigidity/no signs of peritonitis Extremities no cyanosis no clubbing no edema Data : 08/19/21 05:03 08/19/21 05:03 A&P Assessment and plan (1) Acute kidney injury superimposed on CKD: Plan of care; After thorough history physical examination and reviewing the chart and reviweing the images with my personal intrepretation.I counseled the patient for tunneled hemodialysis catheter placement, indications, risks including possibility of , stroke, heart attack, major bleeding, infection, pneumo pete, organ failure, failure to benefit, prolonged hospital stay, pain after the procedure pneumothorax that may require Chest tube(s) placement and potential injury of major vascular structures that may require Thoractomy, benefits,indications and alternatives were all discussed with the patient, zehra ko understands and is interested to proceed. Rationale was carefully and clearly discussed with the patient.Appropriate informed consent have been reviewed and signed. 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
[2021-08-19] MEDS: TRAMadol 50 mg Tablet PO (10:13)
[2021-08-19] MEDS: gabapentin 400 mg Capsule 800 MG PO ×2 (10:13→20:39)
[2021-08-19] MEDS: aspirin 81 mg EC Tablet PO ×2 (10:15→19:31)
--- NOTE | 2021-08-19 11:15 | PC.CHAP ---
Pastoral Care Encounter/Spiritual Assessment Type of Contact [] Declined loan counselor visit [] Patient/Family/Request visit [] Outpatient visit [] Follow-up visit [] Physician referral [] Code/Alert [x] Routine visit [] Staff referral [] Actively dying [] Patient sleeping [] Family support [] [] Out of room [] Palliative care [] [] Receiving care in room [] Pre-surgical visit [] Trauma [] Long length of stay [] ICU visit [] Other: Relational/Emotional Strength [x] Patient feels connected with others/family/visitors/staff [] Distress [] Loneliness/isolation [] Abandonment Spirituality of Patient []x Person of Winter [] Attends Yazidism of their Winter [x] Believes in Prayer [] Reads Bible or Anglican materials [] There are Spiritual issues to be addressed Cutting Table Operator Interventions [x] Prayer [x] Active listening [] Non-anxious presence [] Spiritual/emotional support [] Crisis/trauma care [] Spiritual counseling [] Bereavement support [] Provided bereavement packet [] Provided Bible/devotional materials [] Provided toy/stuffed animal, coloring book to patient or family member [] Provided Communion [] Anointing/[place] [] Salvation []x Completed spiritual assessment [] Other: Impact on Illness or Injury [] Angry [] Fearful [] Anxious [] Often cries [] Exhaustion [] Unable to work [] Unable to attend catholic [] Unable to walk/stand [] Unable to read [] Unable to drive [] Unable to eat/drink [] Unable to sleep [] Unable to be with family [] Patient intubated [] Other: Summary Time spent with patient
[2021-08-19] MEDS: sodium chloride 0.9% 1,000 ML 30 ML IV (12:31)
[2021-08-19] MEDS: ondansetron 2 mg/ML SDV 2 mL 4 MG IVP ×3 (13:24→21:09)
--- NOTE | 2021-08-19 13:25 | P.ANESASSM_ITS ---
Pre-Anesthetic Assessment Height/Weight: Height 1.57 m Weight 36.514 kg Temp Pulse Resp BP Pulse Ox 97.5 F L 88 16 122/64 95 08/19/21 12:15 08/19/21 12:15 08/19/21 12:15 08/19/21 12:15 08/19/21 12:15 Preop Diagnosis: Distal radius fracture, left Operation Date: 08/19/21 13:15 Proposed Procedures p Dialysis Catheter Insertion(Not Applicable) - Migue Go MD Familial anesthetic complications: none Was Beta Hali taken within 24 hours: N/A Was Clonidine taken within 24 hours: N/A Social No alcohol and No tobacco Exam alert, oriented x 3, clear to auscultation bilaterally and regular rate & rhythm Airway Submandibular: within normal limits Cervical ROM: Other (Limited extension ) Mallampati: Class II Comments: Comments: Upper dentures Pulmonary None reported CV/HEM Atrial Fibrillation, Arrythmia (pVT), Congestive Heart Failure and Myocardial Infarction Chronic anticoagulation EKG 08/18/21 Interpretive Statements SINUS RHYTHM WITH OCCASIONAL SUPRAVENTRICULAR PREMATURE COMPLEXES POSSIBLE LEFT ATRIAL ENLARGEMENT? [-0.1mV P-WAVE IN V1/V2] POSSIBLE RIGHT VENTRICULAR CONDUCTION DELAY? [RSR (QR) IN V1/V2] Compared to ECG 08/18/2021 16:45:05 Sinus tachycardia no longer present [email or web address] 2019 CONCLUSIONS ?Please note that this is a limited study without Doppler data ?therefore cannot assess valvular function however it appeared to ?me all the valves are opening and closing fine. ?1-Normal left ventricular cavity size. Normal left ventricular ?systolic function. No regional wall motion abnormalities. Left ?ventricular ejection fraction is estimated at 60 %. ?2-There is no pericardial effusion. ?3-Right atrial pressure is around 5 mm of mercury. ?4- Cannot compare this exam with prior study due to lack of ?Doppler data.? Please order repeat echocardiogram with Doppler . Chronic Renal Failure K 3.4 Receives infusion for chronic hypokalemia and hyomagnesemia Hepatic None reported GI S/P ileostomy Metabolic Malnourished Hx of hyperaldosteronism Musc/skel Osteoarthritis/DJD Generalized weakness Pressure ulcer Hx of Crohn's Neuropsych Neuropathy Anesthetic Plan ASA status: 4 Anesthesia: Anesthesia Evaluation, General and MAC Other: We discussed risk and benefits of general anesthesia including PONV, sore throat (sometimes severe), corneal abrasion, positioning and peripheral nerve injuries, life threatening allergic reaction, post operative ICU admission requiring prolonged intubation, aspiration, stroke, heart attack, , and rare incidences of recall. I discussed with the patient risks, goals, and benefits of MAC and general anesthesia. We discussed spectrum of MAC anesthesia including conversion to general as well as possibility of recall of intraoperative stimuli including discomfort/pain. Patient consents to MAC or General pending further discussion with surgeon. Risk of > 500 ml blood loss (7ml/kg in children): No Medications/Allergies Home Medications Medication Instructions Recorded Confirmed Last Taken Type acetaminophen 500 mg tablet 1,000 mg PO PRN 04/30/20 08/16/21 08/02/20 History (Tylenol Extra Strength) albuterol sulfate 90 mcg/actuation 2 puff INHALATION Q4H PRN 04/30/20 08/16/21 09/12/20 History aerosol inhaler (Ventolin HFA) atorvastatin 20 mg tablet 20 mg PO BEDTIME 04/30/20 08/16/21 09/12/20 History magnesium oxide 400 mg (241.3 mg 800 mg PO BID 04/30/20 08/16/21 08/15/21 History magnesium) tablet CMC Joint Brace #1 ea 05/08/20 08/16/21 Unknown Rx MAGNESIUM SULFATE See Rx Instructions .ROUTE 08/29/20 08/16/21 Unknown Rx .COMPLEX #2 g ostomy wipes #100 ea 10/25/20 08/16/21 Unknown Rx tramadol 50 mg tablet 50 mg PO Q6H PRN #120 tab 10/25/20 08/16/21 08/15/21 Rx aspirin 81 mg tablet,delayed 81 mg PO BID 08/16/21 08/16/21 08/15/21 History release gabapentin 400 mg capsule 800 mg PO TID 08/16/21 08/16/21 08/15/21 History potassium chloride 20 mEq 40 meq PO BID 08/16/21 08/16/21 08/15/21 History tablet,extended release(part/cryst) (Klor-Con M) promethazine 25 mg tablet 25 mg PO BID PRN 08/16/21 08/16/21 08/15/21 History warfarin 1 mg tablet 1 mg PO DAILY 08/16/21 08/16/21 08/15/21 History Allergies Allergy/AdvReac Type Severity Reaction Status Date / Time amoxicillin Allergy ALGY-Hives Verified 08/19/21 12:33 cefazolin [From Ancef] Allergy ALGY-Rash Verified 08/19/21 12:33 cephalexin [From Keflex] Allergy ALGY-Rash Verified 08/19/21 12:33 codeine Allergy ALGY-Hives Verified 08/19/21 12:33 doxycycline Allergy ALGY-Hives Verified 08/19/21 12:33 erythromycin base Allergy ALGY-Hives Verified 08/19/21 12:33 [From E.E.S.] latex Allergy Unknown Verified 08/19/21 12:33 metoclopramide Allergy Unknown Verified 08/19/21 12:33 neomycin Allergy ALGY-Hives Verified 08/19/21 12:33 Penicillins Allergy ALGY-Hives Verified 08/19/21 12:33 polyethylene glycol Allergy ADR-Swelling Verified 08/19/21 12:33 of the Eye pregabalin [From Lyrica] Allergy ALGY-Swell Verified 08/19/21 12:33 Lip/Tongue/Throat prochlorperazine Allergy ALGY-Hives Verified 08/19/21 12:33 [From Compazine] propoxyphene [From Darvon] Allergy ALGY-Hives Verified 08/19/21 12:33 sapropterin Allergy ADR-Swelling Verified 08/19/21 12:33 [From Tetrahydrobiopterin of the Eye Di-HCL] scopolamine Allergy ALGY-Hives Verified 08/19/21 12:33 Sulfa (Sulfonamide Allergy ALGY-Hives Verified 08/19/21 12:33 Antibiotics) tegaserod [From Zelnorm] Allergy ALGY-Hives Verified 08/19/21 12:33 tetracycline Allergy ALGY-Hives Verified 08/19/21 12:33 tetrahydrozoline Allergy ADR-Swelling Verified 08/19/21 12:33 [From Visine] of the Eye Current Medications Generic Name Dose Route Start Last Admin Trade Name Freq PRN Reason Stop Dose Admin Aspirin 81 mg 08/17/21 09:00 08/19/21 10:15 Aspirin 81 Mg Ec Tablet PO 81 mg BID SERENITY Administration Atorvastatin Calcium 20 mg 08/16/21 21:20 08/18/21 21:31 Atorvastatin 40 Mg Tablet PO 20 mg BEDTIME SERENITY Administration Gabapentin 800 mg 08/16/21 21:20 08/19/21 10:13 Gabapentin 400 Mg Capsule PO 800 mg TID SERENITY Administration Sodium Chloride 1,000 mls @ 75 mls/hr 08/18/21 09:00 08/18/21 21:32 Sodium Chloride 0.9% IV 75 mls/hr .[id number] SERENITY Administration Sodium Chloride 1,000 mls @ 30 mls/hr 08/19/21 12:15 08/19/21 12:31 Sodium Chloride 0.9% IV 08/20/21 12:14 30 mls/hr .Q24H SERENITY Administration Promethazine HCl 25 mg 08/16/21 21:20 08/18/21 09:20 Promethazine 25 Mg Tablet PO 25 mg BID PRN Administration Nausea Tramadol HCl 50 mg 08/16/21 21:20 08/19/21 10:13 Tramadol 50 Mg Tablet PO 50 mg Q6H PRN Administration MODERATE TO SEVERE PAIN PFSH Anesthesia Medical History Atrial fibrillation not chronic Autonomic neuropathy BMI less than 19,adult Chronic anemia mixed B12 and iron deficiency 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 Baseline creatinine in 2020 records here 2.0-4.0. Has required hemodialysis in past during times of acute illness. Follows with Dr Benz. Creatinine has been as high as 17 in setting of severe pre-renal azotemia. COVID-19 (~10/2019) Crohn's disease s/p total colectomy (1980) with ileostomy (2002) History of MRSA infection History of pelvic fracture Hyperaldosteronism At at least one point in time felt secondary to aldactone rather than primary Hyperlipidemia Hypersomnia Hypokalemia chronically on IV infusions of potassium and magnesium Hypomagnesemia chronic Local infection due to Port-A-Cath (~2019) Myocardial infarction (lateral wall) Appears to have been identified during a prolonged hospital stay and possibly type II process. Had not required cardiac intervention. Osteoarthritis Osteoporosis Peripheral neuropathy Raynauds syndrome Severe protein-calorie malnutrition Short gut syndrome Stage III pressure ulcer Systolic congestive heart failure Diagnosed in 04/2019 at [facility] during a time of prolonged hospital care. Multiple echocardiograms show preserved EF 50-60% since that time. Appears to have been a transient issue related to acute medical issues at that time. Ventricular tachycardia (paroxysmal) related to electrolyte abnormalities Vitamin B12 deficiency Surgical History H/O ileostomy (~2002) H/O total colectomy (~2002) History of arthrodesis (08/03/18) right index finger History of delivery x4 History of hernia repair History of right hip replacement (~08/2019) History of tubal ligation Hx of appendectomy Port-A-Cath in place (10/12/19) right IJ Status post open reduction and internal fixation (ORIF) of fracture (12/22/19) left radius, Irina Status post open reduction and internal fixation (ORIF) of fracture (11/2019) right humerus, Irina Status post open reduction and internal fixation (ORIF) of fracture right hip Family History Other CAD (coronary artery disease) Cancer Congestive heart failure Diabetes Hyperlipidemia Social History Smoking and tobacco status: never smoked Second hand smoke exposure: No Alcohol intake: never Substance/Drug Use: never Current occupational status: retired Data Anesthesia : 08/19/21 05:03 08/19/21 05:03 Short CBC 08/18/21 08/19/21 Range/Units 05:20 05:03 WBC 6.3 7.2 (4.0-10.0) 10^3/uL Hgb 10.4 L 9.3 L (11.5-15.3) g/dL Hct 31.5 L 28.7 L (37.0-47.0) % MCV 96.9 97.6 (81-99) fl Plt Count 231 229 (130-400) 10^3/cmm Neut % (Auto) 59.5 64.4 % Neut # (Auto) 3.74 4.62 (1.8-7.7) 10^3/uL BMP 08/18/21 08/18/21 08/18/21 05:20 13:45 16:00 Sodium 132 L 133 L 134 L Potassium 5.9 H 4.1 4.0 Chloride 78 L 76 L 76 L Carbon Dioxide 48 H* 47 H* 47 H* BUN 32 H 31 H 33 H Creatinine 6.0 H* 5.9 H* 6.1 H* Glucose 107 112 89 Calcium 9.7 9.5 9.3 08/19/21 05:03 Sodium 137 Potassium 3.4 L Chloride 81 L Carbon Dioxide 46 H* BUN 36 H Creatinine 5.9 H* Glucose 81 Calcium 9.0 Cardiac Enzymes 08/18/21 08/18/21 08/18/21 Range/Units 13:45 16:00 19:42 Troponin T Baseline 39 H (0-10) ng/L Troponin T 120 Minute 37.22 H (0-10) ng/L Delta Troponin T -1.78 L (0-10) ABS# Troponin T Hi Sens 6Hr 34.85 H (0-10) ng/L Troponin T Hi Sens 6Hr Delta -4.15 L (0-12) ng/L Liver Function 08/18/21 08/19/21 Range/Units 05:20 05:03 Total Bilirubin 0.5 0.5 (0.15-1.2) mg/dL AST 26 22 (0-32) U/L ALT 7 7 (0-33) U/L Alkaline Phosphatase 104 104 (35-105) IU/L Albumin 3.9 3.6 (3.5-5.2) g/dL Urine 08/17/21 Range/Units 14:55 Urine Color Straw (Yellow) Urine Appearance Clear (CLEAR) Urine pH 9 H (5-7) Ur Specific [place] 1.020 (1.005-1.030) Urine Protein Neg (Negative) Urine Glucose (UA) Norm (Normal) Urine Ketones Negative (Negative) Urine Nitrate Negative (Negative) Urine Bilirubin Neg (Negative) Ur Leukocyte Esterase Negative (Negative) Coags 08/18/21 08/19/21 05:20 05:03 PT 13.00 12.80 INR 0.95 0.93 Cardiac Studies: Echocardiogram Limited Views 11/23/19 Echocardiogram Ultrasound 05/01/20
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
[2021-08-19 14:12] LABS: Hepatitis B Core AB, Total Non-Reactive (Nonreactive); Hepatitis B Surface Antigen Non-Reactive (Nonreactive)
[2021-08-19 14:15] LABS: Hepatitis B Surface AB < 3.5 (11.5-1000)
[2021-08-19] MEDS: ciprofloxacin 200 MG/100 ML PREMIX 100 MG IV (14:29)
--- NOTE | 2021-08-19 14:30 | SC_ITS ---
WS: [id number] Exam: C-arm FL for CVA [id number] Date/Time of Exam: 08/19/2021 2:30 PM Reason For Exam: intra-op Single limited C-arm image of the upper right chest submitted for evaluation. The image depicts a right double lumen subclavian dialysis catheter placed from the subclavicular bindu clark. The catheter appears to end in the region of the cavoatrial junction. There is also a pre-exis ting right subclavian port in place ending in the same region. The visualized right lung is fully inf lated and clear. Hardware in the proximal right humerus partially visualized. No other significant fi nding on this limited study.
[2021-08-19] MEDS: lidocaine 2% INJ 20 mL INJECTION (14:55)
[2021-08-19] MEDS: heparin, porcine 1,000 unit/mL INJ 10 mL 6000 UNIT INJECTION (15:01)
--- NOTE | 2021-08-19 15:44 | P.OP_ITS ---
Operative Report Date of procedure: August 19, 2021 Pre-op diagnosis: Preop Diagnosis Distal radius fracture, left Procedure done: 1.? Placement of 16 Spanish 28 cm long AshSplit tunneled hemodialysis catheter right internal jugular vein 2.? Fluoroscopic guidance and interpretation for placement of catheter 3.? Ultrasound guidance to access the right internal jugular vein Surgeon: Migue Go MD Harnessmaker: Surgical techtami Sheldon and Shefali Circulating nurses Zena and Jennifer Anesthesia: MAC (CHRISTOPHE Cifuentes and Marcy) Estimated blood loss (mL): 10 Procedure: Procedure: Patient was identified in the holding area and taken to the operative room and placed in supine position ,both arms were tucked,Time-out was done verifying the patient's name/date of /planned procedure and destination after the procedure, all were in agreement.SCDs confirmed to be functioning, intubated by anesthesia ,patient was given prophylactic antibiotics administered per protocol, and beta marli protocol was confirmed, appropriate positioning of the patient was done by me. Medications were reviewed to assess for anticoagulant usage.? Risks and benefits and prevention of central line associated blood stream infection (CLABSI) were discussed with the patient/CPOA, and a consent was obtained.? Monitors were in place and monitored throughout the procedure. All necessary supplies were available prior to start.? Hand hygiene was completed prior to starting.? Maximum barrier technique was utilized including a sterile gown, sterile gloves with a hat and mask.? Site was was prepped with [chlorhexidine] and a full body drape was placed. 5 mL of 2% lidocaine was injected into the skin with a 25 gauge needle. Prep& drape was done under the usual sterile technique of upper chest right and left as well as the neck both sides, lidocaine 2% was injected at the site of the stick, started by left subclavian vein but I was not able to access the vein after couple of attempts.I attempted to access the left internal jugular vein which was very small on the ultrasound and ended up retrieving arterial blood from the carotid artery. At this point pressure was held appropriately and I deviated my attention towards the right internal jugular vein under ultrasound guidance.? There was no evidence of intraluminal thrombosis. I was able to retrieve venous blood,and a guidewire was then threaded without any difficulty and under the guidance of fluoroscopy position was confirmed to be in the IVC, there was no PVC changes, at that point the guidewire was secured to the drapes with a hemostat and the needle was taken out, attention was then deviated towards creation of an insert for the HD catheter at the right upper chest, were lidocaine 2% was injected using an 11 blade knife skin incision was created dissection using a hemostat to create an entrance and? for the HD catheter to be inserted were it was connected to a tunneler, and the tunneler was used to accommodate the catheter of the HD catheter to be delivered through the incision first created at the site of the stick ,which is at the right side of the neck, a small babita was created with 11 blade knife to allow delivery of the catheter outside the wound ,at that point under fluoroscopy,serial dilators were done that come in the in the KIT, followed by that a dilator with the sheath introduced onto the guidewire ,the dilator and the wire were retrieved and the catheter of the port was introduced via the sheath where it was peeled off and the catheter maintained, to be in good position in the right atrium. Both ports were flushed with diluted heparin and appropriate blood was retrieved first, Hep-Lock's were then applied. During the whole entire procedure there was no violation or displacement of the catheter of the PowerPort. The whole procedure was done under fluoroscopy , the position maintained to be in the rt atrium that was confirmed with fluoroscopy, and the fluoroscopy interpretation was done by me throughout the entire procedure. The stick site was closed by 3-0 Vicryl deep subdermal interrupted sutures, followed by 4-0 Monocryl and Dermabond was used followed by dry dressing was applied.A3/0 nylon was used to secure the hemodialysis catheter onto the anterior chest wall.Patient tolerated the procedure well was taken to the recovery area.Count was correct at the end of the procedure I was present for the whole entire procedure. Position of the catheter was checked with a postoperative chest x-ray and it was in good position without evidence of pneumothorax on both sides of the Thorax.
--- NOTE | 2021-08-19 15:46 | XR_ITS ---
WS: [id number] Exam: XR chest 1V portable [id number] Date/Time of Exam: 08/19/2021 4:07 PM Reason For Exam: Status postplacement of right internal jugular vein tunneled Compared to C-arm images from 08/19/2021 at 1:24 PM. The lungs are hyperinflated and clear. A right-sided double-lumen central catheter is noted ending in the lower one third of the SVC in good position. There is also a right-sided subclavian port ending at about the same location. Cardiomediastinal silhouette is unremarkable. Bony structures are intact. Old proximal right humeral fracture with hardware. At least one old left rib fracture noted. XR/XR chest 1V portable [id number] IMPRESSION: 1. Pulmonary hyperinflation. No acute process. 2. Right-sided double-lumen central line in satisfactory location. There is als o a right-sided Port-A-Cath in place ending near the cavoatrial junction.
[2021-08-19] MEDS: diphenhydrAMINE 50 mg/mL SDV 1mL 12.5 MG IVP (16:02)
--- NOTE | 2021-08-19 16:17 | SUR.PHASEI ---
radiology called for portable cxr
[2021-08-19] MEDS: sodium chloride 0.9% 1,000 ML 75 ML IV (19:31)
--- NOTE | 2021-08-19 19:33 | ANE.PACU2 ---
Inpatient post-anesthesia follow up: Airway intact: Yes Vital signs: Temperature 98.2 F Pulse Rate 69 Respiratory Rate 16 Blood Pressure 143/57 Pulse Oximetry 98 OINxygen Delivery Method Room Air Oxygen Flow Rate 4 Fraction of Inspir ed Oxygen Hydration adequate: Yes Nausea and vomiting: No Pain level: 8 Mental status: Baseline Additional Comments: Pain well controlled post op, poorly controlled after dialysis.
--- NOTE | 2021-08-19 19:35 | PC.HD ---
Toward end of trx, patient's BP began dropping into the 80s. Electric Motorman notified. Per floor attendant, patient was given a500 mL fluid bolus, with instructions to terminate early if bolus ineffective. BP came up slightly into the 90s systolic; however, HR was noted to be 36, and upon reassesent, was 30. At this time, RN decided to terminate trx 15 min early. Upon return of blood to patient, BP was 143/57 and HR was 69. patient was talkative and alert, and was taken back to her room in stable condition.
[2021-08-19] MEDS: atorvastatin 40 mg Tablet 20 MG PO (20:37)
[2021-08-19] MEDS: HYDROmorphone 1 mg/mL INJ 1 mL 0.5 MG IVP (21:09)
[2021-08-20] VITALS (8 sets, daily range): BP systolic 115–165; BP diastolic 54–126; PULSE 71–110; RESP 14–19; TEMP 36.2–36.9; O2SAT 90–100
[2021-08-20] MEDS: TRAMadol 50 mg Tablet PO ×3 (02:52→23:33)
[2021-08-20 05:01] LABS: Basophils % 0.5 %; Eosinophils # 0.3 10^3/uL (0.0-0.8); Eosinophils % 3.6 %; Hematocrit 23.4 % (37.0-47.0); Hemoglobin 7.6 g/dL (11.5-15.3); Lymphocytes # 0.8 10^3/uL (0.8-4.8); Lymphocytes % 9.3 %; Mean Corpuscular HGB Conc 32.5 g/dL (30.0-36.0); Mean Corpuscular Hemoglobin 31.9 pg (28.0-34.0); Mean Corpuscular Volume 98.3 fl (81-99); Mean Platelet Volume 11.1 fL (7.4-10.4); Monocytes # 0.6 10^3/uL (0.2-0.9); Monocytes % 7.3 %; Neutrophils # 6.88 10^3/uL (1.8-7.7); Nucleated Red Blood Cells % 0 %; Platelet Count 212 10^3/cmm (130-400); Red Blood Count 2.38 10^6/uL (4.1-5.3); Red Cell Distribution Width 15.3 % (12.1-15.1); White Blood Count 8.7 10^3/uL (4.0-10.0)
[2021-08-20 05:29] LABS: Uric Acid 9.1 mg/dL (2.4-5.7)
[2021-08-20 05:32] LABS: Alanine Aminotransferase 6 U/L (0-33); Albumin Level 3.2 g/dL (3.5-5.2); Alkaline Phosphatase 76 IU/L (35-105); Anion Gap 9.6 (5-19); Aspartate Amino Transferase 24 U/L (0-32); Blood Urea Nitrogen 21 mg/dL (8-23); Calcium 8.2 mg/dL (8.5-10.5); Carbon Dioxide 35 mmol/L (22-29); Chloride 98 mmol/L (98-107); Globulin 2.6 g/dL (1.3-4.6); Glucose 104 mg/dL (65-115); Osmolality Calculated 291 mOsm/kg (285-295); Phosphorus 4.8 mg/dL (2.5-4.5); Potassium 3.6 mmol/L (3.5-5.1); Sodium 139 mmol/L (136-145); Total Bilirubin 0.5 mg/dL (0.15-1.2); Total Protein 5.8 g/dL (6.6-8.7)
[2021-08-20 05:36] LABS: INR 1.03 (0.8-1.2)
--- NOTE | 2021-08-20 07:37 | PC.NURSE ---
02 level was 83% reported to the nurse. added 02 and now 96%
--- NOTE | 2021-08-20 08:04 | P.PN_ITS ---
Subjective Subjective: No new issues with Ms. Gallegos today. She feels generally well. Dialysis performed yesterday. Gentle setting. Tolerated it well. No confusion. Minimal extremity edema. No uremic symptoms now. Vitals/I&O/Wt Last Vital Signs Temp 97.8 F 08/20/21 07:36 Pulse 107 H 08/20/21 07:36 Resp 14 08/20/21 07:36 BP 116/62 08/20/21 07:36 Pulse Ox 96 08/20/21 07:36 08/19/21 08/20/21 08/20/21 22:59 06:59 14:59 Intake Total 1840 / 2940 100 / 3040 Output Total 265 / 515 0 / 515 Balance 1575 / 2425 100 / 2525 Weight last 48 hrs Weight 43.091 kg Weight 43.3 kg Weight 36.514 kg Physical Exam Narrative: Constitutional: Awake, comfortable HEENT: Wet mucosa, no jvp, non icteric Lungs: Bilaterally clear without discernible wheeze or rales in all lung zones CVS: S1 S2, no murmurs Abdo: Soft, BS ok, ostomy noted Ext 4: Minimal edema, peripheral perfusion with no cyanosis Neurological: Grossly non-focal Data : 08/20/21 04:46 08/20/21 04:46 A&P Assessment and plan (1) Acute kidney injury superimposed on CKD: Status: Acute Plan 1. Acute on chronic kidney disease Baseline creatinine 4 mg/dL, presenting with creatinine of 5.6 now slightly increased to 6 mg/dL and no recovery yet Likely to be analgesics that have now tipped her kidneys over the edge into failure. Tunneled line in Dialysis initiated on 08/19 Plan for dialysis session again today with more intense but still gentle settings Avoid usual nephrotoxins Dose medication GFR is less than 15 Strict I's and O's 2. Chemistry No critical; dialysis will help to correct 3. Dispo acquisition manager to set up outpatient in dialysis clinic with Dr Benz > ok for UT today when set up (Dr Benz is aware of case) Thank you for consultation, it is a pleasure to follow these cases with you Exam and interview performed with aid of bedside RN using telemedicine Time spent 20 min inc > 50% of time in face to face counseling Adeel Siddiqui MD [facility] [phone] Attestations Medical Necessity Statement*: eval for renal failure Coding Level of Care Code Acute Air Intercept Controller Supervisor for Chg Fwd Diagnoses Acute kidney injury superimposed on CKD N17.9; N18.9
[2021-08-20] MEDS: aspirin 81 mg EC Tablet PO ×2 (08:57→19:23)
[2021-08-20] MEDS: gabapentin 400 mg Capsule 800 MG PO ×3 (08:58→23:33)
[2021-08-20] MEDS: sodium chloride 0.9% 1,000 ML 75 ML IV ×2 (09:10→15:42)
--- NOTE | 2021-08-20 11:57 | P.PN_ITS ---
Subjective Subjective: Patient overall is feeling well yet she complains of generalized soreness. Medications: Reviewed: Yes Vitals/I&O/Wt Last Vital Signs Temp 97.8 F 08/20/21 07:36 Pulse 97 08/20/21 09:50 Resp 16 08/20/21 09:50 BP 116/62 08/20/21 07:36 Pulse Ox 100 08/20/21 09:50 08/19/21 08/20/21 08/20/21 22:59 06:59 14:59 Intake Total 1840 / 2940 100 / 3040 1000 / 1000 Output Total 265 / 515 0 / 515 Balance 1575 / 2425 100 / 2525 1000 / 1000 Weight last 48 hrs Weight 95 lb Weight 95 lb 7.362 oz Weight 80 lb 8 oz Physical Exam Narrative: Patient is conscious alert oriented X3 No apparent distress BMI 15 Head and neck examination PERRLA no masses no cervical lymphadenopathy no jaundice No surgical emphysema. Right upper chest hemodialysis in place without complication Right upper chest port in place Extremities no cyanosis no clubbing no edema Data : 08/20/21 04:46 08/20/21 04:46 A&P Assessment and plan (1) Acute kidney injury superimposed on CKD: Follow-up nephrology recommendations Return to surgery office as needed Thank you for consulting general surgery to participate taking care of Ms. Rivera Assurance and education All questions have been answered and all concerns have been addressed to patient's satisfaction. Status: Acute Attestations Medical Necessity Statement*: Per admitting service Coding Level of Care Code Acute Hydraulic Jack Operator for [facility] Fwmarina Diagnoses Acute kidney injury superimposed on CKD N17.9; N18.9
--- NOTE | 2021-08-20 20:04 | PM.PN ---
Subjective Subjective: Undergoing hemodialysis. Reports having some chronic ache in her belly. No trouble breathing. During hemodialysis noted lowering of blood pressures. Discussed with her regarding anemia. She is not aware of previously had endoscopy. States was previously sometimes taking NSAIDs, not currently. Vitals/I&O/Wt Last Vital Signs Temp 97.1 F L 08/20/21 15:26 Pulse 96 08/20/21 15:26 Resp 14 08/20/21 15:26 BP 116/69 08/20/21 15:26 Pulse Ox 100 08/20/21 15:26 08/20/21 08/20/21 08/20/21 06:59 14:59 22:59 Intake Total 100 / 3040 1300 / 1300 970 / 2270 Output Total 0 / 515 1657 / 1657 200 / 1857 Balance 100 / 2525 -357 / -357 770 / 413 Weight last 48 hrs Weight 41 kg Weight 43.091 kg Weight 43.3 kg Weight 36.514 kg Physical Exam Const: COMMON NORMALS: alert GENERAL APPEARANCE: cooperative NUTRITIONAL APPEARANCE: thin OTHER: Mildly somnolent during HD. Wakes to voice. HENMT: COMMON NORMALS: normocephalic, EAC's normal, Normal external nose present and moist oral mucous membranes HEAD & SCALP: normocephalic NOSE: Normal external nose present EXTERNAL AUDITORY CANAL: EAC's normal Neck/C-Spine: COMMON NORMALS: no meningeal signs Chest: CHEST: Yes Symmetrical chest wall rise Resp: COMMON NORMALS: clear to auscultation bilaterally AUSCULTATION: clear to auscultation bilaterally Cardio: COMMON NORMALS: regular rate, regular rhythm and No murmurs present (Cardio) RATE: regular rate RHYTHM: regular rhythm GI: COMMON NORMALS: Normal to inspection, nondistended, normoactive bowel sounds present and Soft to palpation PALPATION: Yes Soft to palpation and Yes Tenderness to palpation present (GI) (mildly) Extremity: COMMON NORMALS: no pedal edema Neuro: COMMON NORMALS: moves all extremities SENSORIUM/ORIENTATION: Yes alert MENINGEAL SIGNS: Yes no meningeal signs Psych: COMMON NORMALS: mental status grossly normal Skin: COMMON NORMALS: no wounds RASHES: no rashes Data : 08/20/21 04:46 08/20/21 04:46 A&P Assessment and plan (1) Acute kidney injury superimposed on CKD: Additional dialysis today. Continues on setting up outpatient dialysis. Status: Acute (2) Acute on chronic anemia: She now avoids NSAIDs. Add PPI. Check Hemoccult. Recheck hemoglobin. Warfarin has been on hold. 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 Coding Level of Care Code Acute Community Services Manager for g Fwd Diagnoses Acute kidney injury superimposed on CKD N17.9; N18.9 Acute on chronic anemia D64.9
[2021-08-20] MEDS: pantoprazole DR 40 mg Tablet PO (23:33)
[2021-08-20] MEDS: atorvastatin 40 mg Tablet 20 MG PO (23:33)
[2021-08-21] VITALS (9 sets, daily range): BP systolic 108–177; BP diastolic 53–97; PULSE 60–105; RESP 16–18; TEMP 36.1–37.4; O2SAT 90–97
[2021-08-21] MEDS: sodium chloride 0.9% 1,000 ML 75 ML IV (03:32)
[2021-08-21 05:03] LABS: Basophils % 0.2 %; Eosinophils # 0.3 10^3/uL (0.0-0.8); Eosinophils % 3.6 %; Hematocrit 21.8 % (37.0-47.0); Hemoglobin 7.1 g/dL (11.5-15.3); Lymphocytes % 12.3 %; Mean Corpuscular HGB Conc 32.6 g/dL (30.0-36.0); Mean Corpuscular Hemoglobin 31.7 pg (28.0-34.0); Mean Corpuscular Volume 97.3 fl (81-99); Mean Platelet Volume 10.8 fL (7.4-10.4); Monocytes # 0.7 10^3/uL (0.2-0.9); Neutrophils # 6.14 10^3/uL (1.8-7.7); Neutrophils % 74.7 %; Nucleated Red Blood Cells % 0 %; Platelet Count 189 10^3/cmm (130-400); Red Blood Count 2.24 10^6/uL (4.1-5.3); Red Cell Distribution Width 15.1 % (12.1-15.1); White Blood Count 8.2 10^3/uL (4.0-10.0)
[2021-08-21] MEDS: TRAMadol 50 mg Tablet PO (05:32)
[2021-08-21 05:33] LABS: Alanine Aminotransferase 6 U/L (0-33); Albumin Level 3.3 g/dL (3.5-5.2); Alkaline Phosphatase 83 IU/L (35-105); Anion Gap 8.5 (5-19); Aspartate Amino Transferase 22 U/L (0-32); Blood Urea Nitrogen 14 mg/dL (8-23); Calcium 9.1 mg/dL (8.5-10.5); Carbon Dioxide 36 mmol/L (22-29); Chloride 96 mmol/L (98-107); Globulin 2.7 g/dL (1.3-4.6); Glucose 120 mg/dL (65-115); Osmolality Calculated 286 mOsm/kg (285-295); Potassium 3.5 mmol/L (3.5-5.1); Sodium 137 mmol/L (136-145); Total Bilirubin 0.3 mg/dL (0.15-1.2)
[2021-08-21] MEDS: ondansetron 2 mg/ML SDV 2 mL 4 MG IVP (05:34)
[2021-08-21] MEDS: gabapentin 400 mg Capsule 800 MG PO ×3 (08:49→21:32)
[2021-08-21] MEDS: aspirin 81 mg EC Tablet PO ×2 (08:50→18:48)
[2021-08-21] MEDS: pantoprazole DR 40 mg Tablet PO ×2 (08:50→18:48)
--- NOTE | 2021-08-21 10:46 | PM.PN ---
Subjective Subjective: Ms. Gallegos feels okay with some minor complaints. Denies any uremic symptoms. Denies any extremity edema or shortness of breath. Noted to be anemic and requiring a blood transfusion. Having some difficulty with IV access. Medications: Reviewed: Yes Vitals/I&O/Wt Last Vital Signs Temp 98.2 F 08/21/21 08:00 Pulse 69 08/21/21 08:00 Resp 16 08/21/21 08:00 BP 115/62 08/21/21 08:00 Pulse Ox 95 08/21/21 08:00 08/20/21 08/21/21 08/21/21 22:59 06:59 14:59 Intake Total 970 / 2270 987.5 / 3257.5 550 / 550 Output Total 200 / 1857 1070 / 2927 Balance 770 / 413 -82.5 / 330.5 550 / 550 Weight last 48 hrs Weight 41.504 kg Weight 41 kg Weight 43.091 kg Weight 43.3 kg Physical Exam Narrative: Constitutional: Awake, comfortable HEENT: Wet mucosa, no jvp, non icteric Lungs: Bilaterally clear without discernible wheeze or rales in all lung zones CVS: S1 S2, no murmurs Abdo: Soft, BS ok, ostomy noted Ext 4: Minimal edema, peripheral perfusion with no cyanosis Neurological: Grossly non-focal Data : 08/21/21 04:45 08/21/21 04:45 Micro: Microbiology 08/20/21 19:57 Occult Blood (FIT) - Final Stool Routine Collection A&P Assessment and plan (1) Acute kidney injury superimposed on CKD: Status: Acute Plan 1. Acute on chronic kidney disease Advanced chronic kidney disease which may now be end-stage renal disease. Likely to be analgesics that have now tipped her kidneys over the edge into failure. Tunneled line in Dialysis initiated on 08/19 Plan for dialysis session again today with more intense prescription cont MWF schedule after this Avoid usual nephrotoxins Dose medication GFR is less than 15 Strict I's and O's 2. Chemistry No critical and bicarb coming down with dialysis 3. Dispo senior business development manager to set up outpatient in dialysis clinic with Dr Benz > ok for DC today when set up (Dr Benz is aware of case) Thank you for consultation, it is a pleasure to follow these cases with you Exam and interview performed with aid of bedside RN using telemedicine Time spent 20 min inc > 50% of time in face to face counseling Adeel Siddiqui MD [facility] Renal [place] [phone] Attestations Medical Necessity Statement*: eval for ESRD Coding Level of Care Code Acute Clinical Support Specialist for Chg Fwd Diagnoses Acute kidney injury superimposed on CKD N17.9; N18.9
--- NOTE | 2021-08-21 19:23 | PM.PN ---
Subjective Subjective: Today some difficulties with her port. We are starting IV hydration, she is not really needing it for any other IV medications, however, she would still like to have it accessed to noted words. She states otherwise she wants to have it removed. She also states she wants blood transfusion today with dialysis. Currently no chest pain, and no shortness of breath. Previously had some shortness of breath when everything was going on with her port. Vitals/I&O/Wt Last Vital Signs Temp 99.3 F 08/21/21 19:08 Pulse 97 08/21/21 19:08 Resp 18 08/21/21 19:08 BP 108/58 08/21/21 19:08 Pulse Ox 97 08/21/21 19:08 08/21/21 08/21/21 08/21/21 06:59 14:59 22:59 Intake Total 987.5 / 3257.5 550 / 550 1800 / 2350 Output Total 1070 / 2927 1636 / 1636 Balance -82.5 / 330.5 550 / 550 164 / 714 Weight last 48 hrs Weight 41.7 kg Weight 41.504 kg Weight 41 kg Weight 43.091 kg Physical Exam Const: COMMON NORMALS: alert GENERAL APPEARANCE: cooperative NUTRITIONAL APPEARANCE: thin OTHER: Awake and alert HENMT: COMMON NORMALS: normocephalic, EAC's normal, Normal external nose present and moist oral mucous membranes HEAD & SCALP: normocephalic NOSE: Normal external nose present EXTERNAL AUDITORY CANAL: EAC's normal Neck/C-Spine: COMMON NORMALS: no meningeal signs Chest: CHEST: Yes Symmetrical chest wall rise OTHER: No swelling or erythema, no bleeding at port site. Resp: COMMON NORMALS: clear to auscultation bilaterally AUSCULTATION: clear to auscultation bilaterally Cardio: COMMON NORMALS: regular rate, regular rhythm and No murmurs present (Cardio) RATE: regular rate RHYTHM: regular rhythm GI: COMMON NORMALS: Normal to inspection, nondistended, normoactive bowel sounds present and Soft to palpation PALPATION: Yes Soft to palpation and Yes Tenderness to palpation present (GI) (mildly) Extremity: COMMON NORMALS: no pedal edema Neuro: COMMON NORMALS: moves all extremities SENSORIUM/ORIENTATION: Yes alert MENINGEAL SIGNS: Yes no meningeal signs Psych: COMMON NORMALS: mental status grossly normal Skin: COMMON NORMALS: no wounds RASHES: no rashes Data : 08/21/21 04:45 08/21/21 04:45 Micro: Microbiology 08/20/21 19:57 Occult Blood (FIT) - Final Stool Routine Collection A&P Assessment and plan (1) Acute kidney injury superimposed on CKD: RBC transfusion today, short dialysis. Continue arrangements for outpatient dialysis. Status: Acute (2) Acute on chronic anemia: Hemoglobin down to 7.1. 1 unit RBC transfusion. She now avoids NSAIDs. Add PPI. Negative Hemoccult. Warfarin has been on hold. Status: Acute Plan Generalized weakness, likely secondary to renal failure, PT OT. Arrangements for home health. 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
[2021-08-21] MEDS: atorvastatin 40 mg Tablet 20 MG PO (21:32)
[2021-08-22] VITALS (8 sets, daily range): BP systolic 98–120; BP diastolic 51–75; PULSE 73–122; RESP 14–18; TEMP 36.4–37.2; O2SAT 91–100
[2021-08-22 04:17] LABS: Basophils % 0.5 %; Eosinophils # 0.2 10^3/uL (0.0-0.8); Eosinophils % 2.3 %; Hematocrit 26.7 % (37.0-47.0); Lymphocytes # 1.1 10^3/uL (0.8-4.8); Lymphocytes % 13.7 %; Mean Corpuscular HGB Conc 33.7 g/dL (30.0-36.0); Mean Corpuscular Hemoglobin 31.3 pg (28.0-34.0); Mean Corpuscular Volume 92.7 fl (81-99); Mean Platelet Volume 10.9 fL (7.4-10.4); Monocytes # 0.9 10^3/uL (0.2-0.9); Monocytes % 10.3 %; Neutrophils # 6.01 10^3/uL (1.8-7.7); Neutrophils % 72.6 %; Nucleated Red Blood Cells % 0 %; Platelet Count 152 10^3/cmm (130-400); Red Blood Count 2.88 10^6/uL (4.1-5.3); Red Cell Distribution Width 16.8 % (12.1-15.1); White Blood Count 8.3 10^3/uL (4.0-10.0)
[2021-08-22 04:36] LABS: Anion Gap 14.2 (5-19); Blood Urea Nitrogen 13 mg/dL (8-23); Calcium 8.9 mg/dL (8.5-10.5); Carbon Dioxide 26 mmol/L (22-29); Chloride 101 mmol/L (98-107); Glucose 84 mg/dL (65-115); Osmolality Calculated 285 mOsm/kg (285-295); Potassium 3.2 mmol/L (3.5-5.1); Sodium 138 mmol/L (136-145)
[2021-08-22] MEDS: gabapentin 400 mg Capsule 800 MG PO ×3 (09:31→20:06)
[2021-08-22] MEDS: pantoprazole DR 40 mg Tablet PO ×2 (09:31→18:17)
[2021-08-22] MEDS: aspirin 81 mg EC Tablet PO ×2 (09:31→18:17)
[2021-08-22] MEDS: TRAMadol 50 mg Tablet PO (09:40)
--- NOTE | 2021-08-22 09:45 | PM.PN ---
Subjective Subjective: No new issues with Ms. Gallegos today. She feels generally well. Breathing comfortably. No uremic symptoms. Dialysis was unremarkable yesterday. Medications: Reviewed: Yes Vitals/I&O/Wt Last Vital Signs Temp 98.6 F 08/22/21 08:00 Pulse 121 H 08/22/21 08:47 Resp 17 08/22/21 08:47 BP 117/75 08/22/21 08:00 Pulse Ox 98 08/22/21 08:47 08/21/21 08/22/21 08/22/21 22:59 06:59 14:59 Intake Total 1800 / 2350 Output Total 1636 / 1636 Balance 164 / 714 Weight last 48 hrs Weight 41.7 kg Weight 41.504 kg Weight 41 kg Physical Exam Narrative: Constitutional: Awake, comfortable HEENT: Wet mucosa, no jvp, non icteric Lungs: Bilaterally clear without discernible wheeze or rales in all lung zones CVS: S1 S2, no murmurs Abdo: Soft, BS ok, ostomy noted Ext 4: Minimal edema, peripheral perfusion with no cyanosis Neurological: Grossly non-focal Data : 08/22/21 03:19 08/22/21 03:19 A&P Assessment and plan (1) Acute kidney injury superimposed on CKD: Status: Acute Plan 1. Acute on chronic kidney disease Advanced chronic kidney disease which may now be end-stage renal disease. Likely to be analgesics that have now tipped her kidneys over the edge into failure. Tunneled line in Dialysis initiated on 08/19 cont MWF schedule, dialysis ordered for tomorrow, 3K, UF 1L Avoid usual nephrotoxins Dose medication GFR is less than 15 Strict I's and O's 2. Chemistry Low potassium. She is refusing to have potassium injected unless it is through her palpable. Of note as an outpatient she can receive dialysis with a 4 potassium dialysate bath. We cannot give this in the hospital. 3. Dispo social media content manager to set up outpatient in dialysis clinic with Dr Benz > ok for DC today when set up (Dr Benz is aware of case), hopefully today Thank you for consultation, it is a pleasure to follow these cases with you Exam and interview performed with aid of bedside RN using telemedicine Time spent 20 min inc > 50% of time in face to face counseling Adeel Siddiqui MD [facility] Renal [facility] [phone] Attestations Medical Necessity Statement*: eval for new ESRD Coding Level of Care Code Acute Mica Laminating Machine Feeder for Chg Fwd Diagnoses Acute kidney injury superimposed on CKD N17.9; N18.9
[2021-08-22] MEDS: potassium chloride premix 100 ML 25 MEQ IV (11:32)
--- NOTE | 2021-08-22 13:02 | PC.SOCIAL ---
IMM update pg 2 of IMM updated and reviewed w/ patient. Copy placed in chart and Copy provided to patient.
[2021-08-22] MEDS: ondansetron 2 mg/ML SDV 2 mL 4 MG IVP (14:02)
--- NOTE | 2021-08-22 16:05 | PM.DCS ---
Discharge Providers Date of Admission: 08/19/21 10:26 Date of Discharge: August 22, 2021 Attending Provider at Admission: Karin Kumar MD Attending Provider at Discharge: Kirk March Primary Care Provider: Veda Gilman MD Diagnoses at Discharge Discharge Diagnosis (1) Acute kidney injury superimposed on CKD: Status: Acute Reason for Visit Reason for Visit: dr paulino kidney problems Hospital Course Hospital Course 71-year-old lady with absorption, short gut syndrome, Crohn's disease recurrent electrolyte deficiency requiring transfusions, chronic anemia, with Port-A-Cath in place, low BMI, anorexia, sacral decubitus ulcer, chronic kidney disease came in with worsening renal function, LUIS ALFREDO on CKD, fluid overload, pedal edema, also needing hemodialysis, he also catheter was placed on 08/19, underwent hemodialysis sessions in the hospital with resolution of fluid overload. Did have PRN need for midodrine. During hospitalization required 1 unit RBC transfusion. Hemoccult negative. With very good response, globin dropped from 7.1 to 9. Please follow-up renal function, electrolytes. Continue supplementation as previously. Port-A-Cath on first axis attempt she reports was having some leakage, but worked well with access repeated later in the hospitalization for potassium replacement. Outpatient hemodialysis been arranged. She is intent on continuing follow-up with Dr. Benz, and is continuing dialysis with [facility]. She is stating that she continues consideration as to continuation of dialysis, and depending on her overall condition may be considering also transition to hospice care. Continue goals of care discussions. Continue follow-up regarding sacral ulcer, atrial fibrillation, warfarin was held during hospitalization, but is resumed, Crohn's disease and short bowel syndrome, coronary disease and other chronic conditions. Physical Exam Const: COMMON NORMALS: alert GENERAL APPEARANCE: cooperative NUTRITIONAL APPEARANCE: thin OTHER: Awake and alert HENMT: COMMON NORMALS: normocephalic, EAC's normal, Normal external nose present and moist oral mucous membranes HEAD & SCALP: normocephalic NOSE: Normal external nose present EXTERNAL AUDITORY CANAL: EAC's normal Neck/C-Spine: COMMON NORMALS: no meningeal signs Chest: CHEST: Yes Symmetrical chest wall rise OTHER: No swelling or erythema, no bleeding at port site. Resp: COMMON NORMALS: clear to auscultation bilaterally AUSCULTATION: clear to auscultation bilaterally Cardio: COMMON NORMALS: regular rate, regular rhythm and No murmurs present (Cardio) RATE: regular rate RHYTHM: regular rhythm GI: COMMON NORMALS: Normal to inspection, nondistended, normoactive bowel sounds present and Soft to palpation PALPATION: Yes Soft to palpation and Yes Tenderness to palpation present (GI) (mildly) Extremity: COMMON NORMALS: no pedal edema Neuro: COMMON NORMALS: moves all extremities SENSORIUM/ORIENTATION: Yes alert MENINGEAL SIGNS: Yes no meningeal signs Psych: COMMON NORMALS: mental status grossly normal Skin: COMMON NORMALS: no wounds RASHES: no rashes Discharge Data Studies Completed and Pending Completed Studies During Hospitalization Category Date Time Status CXRP [XR chest 1V portable [id number]] Urgent Exams 08/19/21 15:46 Completed US renal BI* [id number] Urgent Ultrasound 08/18/21 09:01 Completed Pending at discharge Category Date Time Status Basic Metabolic Panel AM LABS Lab 08/23/21 04:00 Ordered Basic Metabolic Panel AM LABS Lab 08/24/21 04:00 Ordered Complete Blood Count w/Auto AM LABS Lab 08/23/21 04:00 Ordered Radiology Impressions Renal Ultrasound 08/18/21 09:01 IMPRESSION: No acute abnormality identified. Chest X-Ray 08/19/21 15:46 IMPRESSION: 1. Pulmonary hyperinflation. No acute process. 2. Right-sided double-lumen central line in satisfactory location. There is also a right-sided Port-A-Cath in place ending near the cavoatrial junction. Laboratory Results WBC 8.3 10^3/uL (4.0-10.0) 08/22/21 03:19 RBC 2.88 10^6/uL (4.1-5.3) L 08/22/21 03:19 Hgb 9.0 g/dL (11.5-15.3) L 08/22/21 03:19 Hct 26.7 % (37.0-47.0) L 08/22/21 03:19 MCV 92.7 fl (81-99) 08/22/21 03:19 MCH 31.3 pg (28.0-34.0) 08/22/21 03:19 MCHC 33.7 g/dL (30.0-36.0) 08/22/21 03:19 RDW 16.8 % (12.1-15.1) H 08/22/21 03:19 Plt Count 152 10^3/cmm (130-400) 08/22/21 03:19 MPV 10.9 fL (7.4-10.4) H 08/22/21 03:19 Neut % (Auto) 72.6 % 08/22/21 03:19 Lymph % (Auto) 13.7 % 08/22/21 03:19 [place] % (Auto) 10.3 % 08/22/21 03:19 Eos % (Auto) 2.3 % 08/22/21 03:19 Baso % (Auto) 0.5 % 08/22/21 03:19 Neut # (Auto) 6.01 10^3/uL (1.8-7.7) 08/22/21 03:19 Lymph # (Auto) 1.1 10^3/uL (0.8-4.8) 08/22/21 03:19 [place] # (Auto) 0.9 10^3/uL (0.2-0.9) 08/22/21 03:19 Eos # (Auto) 0.2 10^3/uL (0.0-0.8) 08/22/21 03:19 Baso # (Auto) 0.0 10^3/uL (0.0-0.1) 08/22/21 03:19 Nucleated RBC % (auto) 0 % 08/22/21 03:19 Nucleated RBCs # 0.0 /100WBC 08/22/21 03:19 PT 13.80 SECONDS (12.1-14.9) 08/20/21 04:46 INR 1.03 (0.8-1.2) 08/20/21 04:46 Sodium 138 mmol/L (136-145) 08/22/21 03:19 Potassium 3.2 mmol/L (3.5-5.1) L 08/22/21 03:19 Chloride 101 mmol/L (98-107) 08/22/21 03:19 Carbon Dioxide 26 mmol/L (22-29) 08/22/21 03:19 Anion Gap 14.2 (5-19) 08/22/21 03:19 BUN 13 mg/dL (8-23) 08/22/21 03:19 Creatinine 1.9 mg/dL (0.5-0.9) H 08/22/21 03:19 GFR Calculation Not Reportable 08/22/21 03:19 Glucose 84 mg/dL (65-115) 08/22/21 03:19 Calculated Osmolality 285 mOsm/kg (285-295) 08/22/21 03:19 Uric Acid 9.1 mg/dL (2.4-5.7) H 08/20/21 04:46 Calcium 8.9 mg/dL (8.5-10.5) 08/22/21 03:19 Phosphorus 4.8 mg/dL (2.5-4.5) H 08/20/21 04:46 Magnesium 1.7 mg/dL (1.7-2.3) 08/19/21 05:03 Total Bilirubin 0.3 mg/dL (0.15-1.2) 08/21/21 04:45 AST 22 U/L (0-32) 08/21/21 04:45 ALT 6 U/L (0-33) 08/21/21 04:45 Alkaline Phosphatase 83 IU/L (35-105) 08/21/21 04:45 Creatine Kinase 88 U/L (26-192) 08/17/21 04:17 Troponin T Baseline 39 ng/L (0-10) H 08/18/21 13:45 Troponin T 120 Minute 37.22 ng/L (0-10) H 08/18/21 16:00 Delta Troponin T -1.78 ABS# (0-10) L 08/18/21 16:00 Troponin T Hi Sens 6Hr 34.85 ng/L (0-10) H 08/18/21 19:42 Troponin T Hi Sens 6Hr Delta -4.15 ng/L (0-12) L 08/18/21 19:42 NT-Pro-B Natriuret Pep 1448 pg/mL (0-125) H 08/17/21 04:17 Total Protein 6.0 g/dL (6.6-8.7) L 08/21/21 04:45 Albumin 3.3 g/dL (3.5-5.2) L 08/21/21 04:45 Globulin 2.7 g/dL (1.3-4.6) 08/21/21 04:45 Lipase 61 U/L (13-60) H 08/16/21 18:21 Urine Color Straw (Yellow) 08/17/21 14:55 Urine Appearance Clear (CLEAR) 08/17/21 14:55 Urine pH 9 (5-7) H 08/17/21 14:55 Ur Specific [place] 1.020 (1.005-1.030) 08/17/21 14:55 Urine Protein Neg (Negative) 08/17/21 14:55 Urine Glucose (UA) Norm (Normal) 08/17/21 14:55 Urine Ketones Negative (Negative) 08/17/21 14:55 Urine Blood Neg (Negative) 08/17/21 14:55 Urine Nitrate Negative (Negative) 08/17/21 14:55 Urine Bilirubin Neg (Negative) 08/17/21 14:55 Prot Sulfosalicylic Acd Positive (Negative) 08/17/21 14:55 Urine Urobilinogen Norm mg/dL (Negative) 08/17/21 14:55 Ur Leukocyte Esterase Negative (Negative) 08/17/21 14:55 Urine RBC 0-4 /hpf (0-2) H 08/16/21 22:47 Urine WBC 0-4 /hpf (0-5) H 08/16/21 22:47 Ur Squamous Epith Cells 0-4 /hpf (0-5) H 08/16/21 22:47 Amorphous Sediment Not Reportable 08/16/21 22:47 Urine Bacteria None /hpf (NONE) 08/16/21 22:47 Ur Random Sodium 59 mmol/L 08/17/21 14:55 Urine Creatinine 83 mg/dL (28-217) 08/17/21 14:55 Hep Bs Antigen Non-reactive (Nonreactive) 08/17/21 04:17 Hep Bs Antibody < 3.5 (11.5-1000) L 08/17/21 04:17 Hep B Core Total Ab Non-reactive (Nonreactive) 08/17/21 04:17 Blood Type O Negative 08/21/21 09:23 Rho(D) Type Negative 08/21/21 09:23 Antibody Screen Negative 08/21/21 09:23 Crossmatch See Detail 08/21/21 09:23 Vitals Last Vital Signs Temp 98.9 F 08/22/21 15:59 Pulse 122 H 08/22/21 15:59 Resp 16 08/22/21 15:59 BP 120/75 08/22/21 15:59 Pulse Ox 97 06/23/22 15:59 Discharge Plan Discharge Patient Disposition: Home Condition: Stable Prescriptions: New midodrine 5 mg Tablet 5 mg PO BID PRN (Reason: Hypotension) Qty: 60 0RF Rx Instructions: With dialysis pantoprazole 40 mg Tablet,Delayed Release (Dr/Ec) 40 mg PO BID 42 Days Qty: 84 0RF Continued (DME) ostomy wipes See Rx Instructions .Route .MEDSUPPLY Qty: 100 0RF Rx Instructions: As directed tramadol 50 mg tablet 50 mg PO Q6H PRN (Reason: pain) Qty: 120 0RF (DME) [facility] Joint Brace See Rx Instructions .ROUTE .MEDSUPPLY Qty: 1 0RF Rx Instructions: As directed MAGNESIUM SULFATE See Rx Instructions .ROUTE .COMPLEX Qty: 2 11RF Rx Instructions: 2GM IVPB PRN WEEKLY IF MAGNESIUM LEVEL BELOW 1.8; atorvastatin 20 mg tablet 20 mg PO BEDTIME 0RF acetaminophen [Tylenol Extra Strength] 500 mg Tablet 1,000 mg PO PRN 0RF albuterol sulfate [Ventolin HFA] 90 mcg/actuation Hfa Aerosol Inhaler 2 puff INHALATION Q4H PRN (Reason: Shortness Of Breath) 0RF magnesium oxide 400 mg (241.3 mg magnesium) tablet 800 mg PO BID 0RF gabapentin 400 mg Capsule 800 mg PO TID 0RF Aspir-81 81 mg Tablet,Delayed Release (Dr/Ec) 81 mg PO BID 0RF warfarin 1 mg tablet 1 mg PO DAILY 0RF promethazine 25 mg tablet 25 mg PO BID PRN (Reason: Nausea) 0RF Klor-Con M20 20 mEq tablet,ER particles/crystals 40 meq PO BID 0RF Other Ambulatory Orders: DME: Hospital Bed (Order) Location: None Selected Ordered By: Kirk March Referrals: Lyn [Other] (Please arrive @ 0900 for chair time on Thursday, , and Thursday. With your first treatment being Thursday08/24/2021 @ 0900. They ask that you get there 30 mins early the first appointment to complete paperwork.) Toni Castle [Other] - 4-7 days (Primary provider please call tomorrow and make a follow up appointment with primary care in 4-7 days. ) Discharge Activity: Increase activity as tolerated Patient Instructions: Opioid Safety Activity Restrictions/Additional Instructions: Please follow-up with your primary provider for reassessment of renal function, as well as electrolytes including potassium. Continued supplementation infusions as before. Please have your primary provider also reassess blood count for anemia. Your blood counts responded well to transfusion with increase from 7.1-9. Continue outpatient hemodialysis and reassessment of renal function with slicing machine feeder. Continue renal, hemodialysis diet. Return to surgery office as needed regarding dialysis catheter, Port-A-Cath. Please make sure to avoid any NSAIDs like ibuprofen, Aleve, etc. Continue follow-up with primary provider regarding sacral ulcer, atrial fibrillation and anticoagulation, Crohn's disease and short bowel syndrome, coronary artery disease and other chronic conditions. Continue discussions regarding your wishes for goals of care, continuation of dialysis. Discharge Attestations Time Spent in Discharge Care*: greater than 30 min Quality Metrics Clinical Quality Measures [ No reported AMI, CVA or VTE this stay] Coding Level of Care Code Acute Chg FW DC note Exam Comprehensive Diagnoses Acute kidney injury superimposed on CKD N17.9; N18.9
--- NOTE | 2021-08-22 16:17 | ECG_ITS ---
[facility] Test Date: 2021-08-22 Pat Name: Janene Gallegos Department: Room: 259 Gender: Female External Auditor: : 1950 Requested By: Kirk March Order Number: [id number] Reading MD: Oswaldo Reynolds M.D. Measurements Intervals [place] Rate: 117 P: 62 NE: 139 QRS: 27 QRSD: 74 T: 123 QT: 295 QTc: 412 Interpretive Statements SINUS TACHYCARDIA NONSPECIFIC T-WAVE ABNORMALITY Compared to ECG 08/18/2021 23:18:13 T-wave abnormality now present Sinus rhythm no longer present Electronically Signed On 08-22-2021 22:29:30 CDT by Oswaldo Reynolds M.D. [id number]
[2021-08-22] MEDS: enoxaparin 40 mg/0.4 mL Syringe SUBCUT (20:06)
[2021-08-22] MEDS: atorvastatin 40 mg Tablet 20 MG PO (20:06)
[2021-08-22 23:17] LABS: Add Urine Microscopic? YES; Bilirubin Urine Neg (Negative); Blood Urine 2+ (Negative); Glucose Urine UA Norm (Normal); Ketones Urine Negative (Negative); Leukocyte Esterase Urine Negative (Negative); Nitrate Urine Negative (Negative); Protein Urine Neg (Negative); Sulfosalicylic Acid Urine Negative (Negative); Urine Appearance Clear (CLEAR); Urine Color Yellow (Yellow); Urobilinogen Urine Norm (Negative); pH Urine 8 (5-7)
[2021-08-22 23:19] LABS: Add Urine Culture? No; Squamous Epithelial Cell Urine 0-4 /hpf (0-5); WBC Urine 0-4 /hpf (0-5)
[2021-08-23] MEDS: TRAMadol 50 mg Tablet PO ×2 (00:35→17:56)
--- NOTE | 2021-08-23 00:37 | USCV_ITS ---
Janene Gallegos Age: 71 Gender: F : 1950 Exam Date: 08/23/2021 05:50 Ordering Phys: Gustavo Velazquez MD Technologist: SOPHIE Exam Location: [facility] [place] Indication: R/o DVT, Lt UE swelling HISTORY: Upper extremity swelling. PROCEDURES: Venous duplex imaging was performed in only the left upper extremity. The following venous structures were evaluated: internal jugular vein, subclavian vein, axillary vein, and brachial veins. In addition, the basilic vein, cephalic vein, radial vein, and ulnar vein. FINDINGS: Limited evaluation of left jugular. k. All other veins imaged appear compressible and free of thrombus at this time. Edema visualized throughtout left upper extremity. CONCLUSIONS Limited exam but no evidence for left upper extremity deep venous thrombosis. Dr. Maddie Ty DO (Electronically Signed) Final Date: 23 August 2021 06:45 S
--- NOTE | 2021-08-23 00:50 | PC.NURSE ---
FINGERPRINT EXPERT notified this RN of edema to left arm. This RN observed from left forearm to above the left elbow to be swollen and firm. Pt c/o pain to arm rating pain an 8 on 0-10 scale with 10 being the worst. Skin warm to touch and pink in color. Radial pulse 2+. Left hand cool to the touch. Dr. Velazquez made aware.
[2021-08-23 03:23] LABS: Basophils % 0.3 %; Eosinophils # 0.3 10^3/uL (0.0-0.8); Eosinophils % 3.6 %; Hematocrit 26.8 % (37.0-47.0); Hemoglobin 8.9 g/dL (11.5-15.3); Lymphocytes # 1.4 10^3/uL (0.8-4.8); Lymphocytes % 14.2 %; Mean Corpuscular HGB Conc 33.2 g/dL (30.0-36.0); Mean Corpuscular Hemoglobin 31.3 pg (28.0-34.0); Mean Corpuscular Volume 94.4 fl (81-99); Mean Platelet Volume 11.2 fL (7.4-10.4); Monocytes % 10.2 %; Neutrophils # 6.82 10^3/uL (1.8-7.7); Neutrophils % 71.3 %; Nucleated Red Blood Cells % 0 %; Platelet Count 174 10^3/cmm (130-400); Red Blood Count 2.84 10^6/uL (4.1-5.3); Red Cell Distribution Width 16.7 % (12.1-15.1); White Blood Count 9.6 10^3/uL (4.0-10.0)
--- NOTE | 2021-08-23 03:41 | PC.NURSE ---
Pt reported to this nurse new onset of a cough. Non-productive cough noted. Pt stating I feel like my cheeks are swelling up and it's causing me difficulty talking . This RN does not see facial edema. Physical assessment unremarkable except for swelling to BUE. Pt stating I'm scared and I don't want to here . Dr. Velazquez made aware of pt concerns. No new orders. Vital signs are stable. Martita, charge rn, made aware.
[2021-08-23 03:48] LABS: Anion Gap 12.1 (5-19); Blood Urea Nitrogen 17 mg/dL (8-23); Calcium 9.2 mg/dL (8.5-10.5); Carbon Dioxide 28 mmol/L (22-29); Chloride 98 mmol/L (98-107); Glucose 87 mg/dL (65-115); Osmolality Calculated 279 mOsm/kg (285-295); Potassium 4.1 mmol/L (3.5-5.1); Sodium 134 mmol/L (136-145)
[2021-08-23 04:29] VITALS: BP 89/56; PULSE 97; RESP 16; O2SAT 97
--- NOTE | 2021-08-23 06:00 | XR_ITS ---
WS: [id number] Exam: XR chest 1V portable [id number] Date/Time of Exam: 08/23/2021 4:51 AM Reason For Exam: Hypoxia Comparison 08/19/2021. The lungs are hyperinflated. Mild interstitial infiltrates are seen in the right and left lower lung zones as well as the region of the lingula suspicious for pneumonia. Heart size is normal. Chronic wi dening of the superior mediastinum. A double lumen right-sided dialysis catheter appears to end in th e region of the cavoatrial junction. There is also a right-sided port ending near the same region. No pneumothorax. Trace left basal pleural effusion. Bilateral apical pleural thickening. Healed fractur e of the proximal right humerus with the plate and screw fixation. Several old left rib fractures. XR/XR chest 1V portable [id number] IMPRESSION: 1. Interstitial infiltrates in the bilateral lower lung zones and also the cierra on of the lingula suspicious for pneumonia. Trace left pleural effusion. 2. Pulmonary hyperinflation probably indicating obstructive lung disease. 3. Right-sided double-lumen central line and also MediPort of both appearing to be in satisfactory position.
[2021-08-23 07:38] VITALS: BP 95/63; PULSE 98; RESP 16; TEMP 37.1; O2SAT 97
[2021-08-23 08:24] VITALS: PULSE 94; RESP 18; O2SAT 95
[2021-08-23] MEDS: aspirin 81 mg EC Tablet PO ×2 (09:22→17:57)
[2021-08-23] MEDS: gabapentin 400 mg Capsule 800 MG PO ×3 (09:22→20:14)
[2021-08-23] MEDS: pantoprazole DR 40 mg Tablet PO ×2 (09:22→17:56)
--- NOTE | 2021-08-23 09:47 | PM.PN ---
Subjective Subjective: Overnight she developed some swelling in her elbows bilaterally and her face. Venous Doppler and chest x-ray did not demonstrate any acute issues. No other uremic symptoms. No other hypervolemic symptoms. She is breathing comfortably today. Medications: Reviewed: Yes Vitals/I&O/Wt Last Vital Signs Temp 98.7 F 08/23/21 07:38 Pulse 94 08/23/21 08:24 Resp 18 08/23/21 08:24 BP 95/63 08/23/21 07:38 Pulse Ox 95 08/23/21 08:24 08/22/21 08/23/21 08/23/21 22:59 06:59 14:59 Intake Total 1320 / 2600 740 / 3340 Output Total 100 / 100 Balance 1320 / 2600 640 / 3240 Weight last 48 hrs Weight 41.7 kg Physical Exam Narrative: Constitutional: Awake, comfortable HEENT: Wet mucosa, no jvp, non icteric Lungs: Bilaterally clear without discernible wheeze or rales in all lung zones CVS: S1 S2, no murmurs Abdo: Soft, BS ok, ostomy noted Ext 4: Minimal edema, peripheral perfusion with no cyanosis Neurological: Grossly non-focal Data : 08/23/21 03:09 08/23/21 03:09 A&P Assessment and plan (1) Acute kidney injury superimposed on CKD: Status: Acute Plan 1. Acute on chronic kidney disease Advanced chronic kidney disease which may now be end-stage renal disease. Likely to be analgesics that have now tipped her kidneys over the edge into failure. Tunneled line in Outpatient dialysis tomorrow but if she is here will dialyze her in house 3K, UF 1L Avoid usual nephrotoxins Dose medication GFR is less than 15 Strict I's and O's 2. Chemistry Low potassium. She is refusing to have potassium injected unless it is through her palpable. Of note as an outpatient she can receive dialysis with a 4 potassium dialysate bath. We cannot give this in the hospital. 3. Dispo fitness manager to set up outpatient in dialysis clinic with Dr Benz > ok for DC today when set up (Dr Benz is aware of case), hopefully today Thank you for consultation, it is a pleasure to follow these cases with you Exam and interview performed with aid of bedside RN using telemedicine Time spent 20 min inc > 50% of time in face to face counseling MD [facility] [phone] Attestations Medical Necessity Statement*: eval for ESRD Coding Level of Care Code Acute Compressed Air Pile Driver Operator for Chg Fwd Diagnoses Acute kidney injury superimposed on CKD N17.9; N18.9
--- NOTE | 2021-08-23 13:03 | USCV_ITS ---
EduardJanene craig Age: 71 Gender: F : 1950 Exam Date: 08/23/2021 15:11 Ordering Phys: Kirk March MD Technologist: Natalya Bass [place] [facility] [place]: RT ARM IS SWOLLEN AT ELBOW IV SITE HISTORY: Swollen Rt arm near elbow iv site PROCEDURES: Venous duplex imaging was performed in only the right upper extremity. The following venous structures were evaluated: internal jugular vein, subclavian vein, axillary vein, and brachial veins. In addition, the basilic vein, cephalic vein, radial vein, and ulnar vein. Serial compression, augmentation maneuvers, and spectral Doppler flow evaluation were performed. FINDINGS: Normal 2-D, color Doppler and phasicity noted in ther right upper extremity venous system extending from the right internal jugular vein through the main forearm. No thrombosis or occlusion noted. CONCLUSIONS No evidence for right upper extremity deep venous thrombosis. Right upper extremity edema. Dr. Maddie Ty DO (Electronically Signed) Final Date: 23 August 2021 15:57 S
[2021-08-23] MEDS: warfarin 2 mg Tablet 1 MG PO (14:29)
[2021-08-23 16:00] VITALS: BP 112/73; PULSE 98; RESP 16; TEMP 36.3; O2SAT 96
[2021-08-23] MEDS: enoxaparin 30 mg/0.3 mL Syringe SUBCUT (17:56)
--- NOTE | 2021-08-23 18:31 | NM_ITS ---
WS: [id number] NUCLEAR MEDICINE VENTILATION/PERFUSION LUNG SCAN HISTORY: Sinus tachycardia, assess for PE. COMPARISON: 02/25/2019 TECHNIQUE: Ventilation: 30.9 mCi of Technetium 99 DTPA aerosol inhaled. Perfusion: 4.9 mCi of technetium 99m MAA IV. Very difficult injection into the venous system of the RIGHT arm. There was patchy opacification of t he vein with to and fro motion of radionuclide in the venous system. Suspect there may be a venous th rombus causing a partial obstruction. Very heterogeneous deposition of radionuclide within the lungs. No large matched defects. Very heterogeneous ventilation also. NM/NM pul vent and perfus* [id number] IMPRESSION: 1. Very difficult ejection of the radionuclide into the RIGHT upper extremity. There appears to be a partial occlusion or abnormal flow within the venous sys tem. Consider further evaluation of the RIGHT upper extremity by ultrasound to evaluate for thrombus. The LEFT upper extremity was performed on 08/23/2021 and was negative. 2. Indeterminate probability pulmonary embolism. Very heterogeneous deposition of radionuclide and also perfusion throughout both lungs. Multiple tiny emboli cannot be excluded.
[2021-08-23] MEDS: FUROsemide 10 mg/mL SDV 2mL 20 MG IVP (18:40)
[2021-08-23 19:49] VITALS: PULSE 101; RESP 16; O2SAT 99
--- NOTE | 2021-08-23 19:56 | PM.PN ---
Subjective Subjective: This morning she developed some swelling around her upper arms/elbows with dependent component around the elbows. Duplex ultrasound was ordered overnight, she states that this morning duplex was somewhat uncomfortable during the study. Discussed with her consideration of poor venous return given small caliber vessels, prior access procedures. Additionally assessed with VQ scan, venous duplex on the right. On revisit she is asking how the edema may be resolved. Discussed with her elevating upper extremities. Discussed venous return likely compromise, although no DVT is seen. Unfortunately not much option currently as she is needing dialysis catheter and port for infusions that she will not take oral supplementation of electrolytes. Discussed with dialysis also edema may improve over time, she states once edema resolved immediately requests for Lasix, dialysis. Discussed with her extra dialysis just for edema may be more detrimental especially considering her soft blood pressures. Discussed we may try an additional dose of Lasix. However, biggest benefit would be from elevating upper extremities at least at the time being. In case needing dialysis long-term, consideration may be given to other access. Discussed also she was resumed on Lovenox, currently resumed on warfarin, will be following up blood counts again in the morning. Vitals/I&O/Wt Last Vital Signs Temp 97.3 F L 08/23/21 16:00 Pulse 101 H 08/23/21 19:49 Resp 16 08/23/21 19:49 BP 112/73 08/23/21 16:00 Pulse Ox 99 08/23/21 19:49 08/23/21 08/23/21 08/23/21 06:59 14:59 22:59 Intake Total 740 / 3340 360 / 360 360 / 720 Output Total 100 / 100 100 / 100 Balance 640 / 3240 360 / 360 260 / 620 Physical Exam Const: COMMON NORMALS: alert GENERAL APPEARANCE: cooperative NUTRITIONAL APPEARANCE: thin HENMT: COMMON NORMALS: normocephalic, EAC's normal, Normal external nose present and moist oral mucous membranes HEAD & SCALP: normocephalic NOSE: Normal external nose present EXTERNAL AUDITORY CANAL: EAC's normal Neck/C-Spine: COMMON NORMALS: no meningeal signs Chest: CHEST: Yes Symmetrical chest wall rise OTHER: No swelling or erythema, no bleeding at port site. Resp: COMMON NORMALS: clear to auscultation bilaterally AUSCULTATION: clear to auscultation bilaterally Cardio: COMMON NORMALS: regular rate, regular rhythm and No murmurs present (Cardio) RATE: regular rate RHYTHM: regular rhythm GI: COMMON NORMALS: Normal to inspection, nondistended, normoactive bowel sounds present and Soft to palpation PALPATION: Yes Soft to palpation and Yes Tenderness to palpation present (GI) (mildly) Extremity: OTHER: 2+ edema UE dependent mostly at lower portions of upper arms and around elbows. No erythema or warmth. Neuro: COMMON NORMALS: moves all extremities SENSORIUM/ORIENTATION: Yes alert MENINGEAL SIGNS: Yes no meningeal signs Psych: ATTITUDE: Yes agitated MOOD & AFFECT: Yes irritable Skin: COMMON NORMALS: no wounds RASHES: no rashes Data : 08/23/21 03:09 08/23/21 03:09 A&P Assessment and plan (1) Swelling of both upper extremities: Some swelling of bilateral upper extremities, worse on the left, with dependent edema worse at the elbows. Additional assessment today was done with left venous duplex in the morning. Subsequently we had also done VQ scan, although it was indeterminate, but during VQ scan there was difficulty with injection of the radiotracer, suggestive of difficulty with venous return. Additional duplex assessed of right upper extremity, without DVT. She is resumed on anticoagulation. Discussed with her we are finding unfortunately that she is having quite a bit of stenosis known on the left side, appears also narrowed venous return on the right, exacerbated by need for dialysis access, and her need for Port-A-Cath for electrolyte replacement. Currently no thrombus. She is being resumed on anticoagulation. Discussed elevation of upper extremities. She requests Lasix. If continued hemodialysis will be needed, consideration of different access. She again brings up that she is considering another possibility of not continuing dialysis, especially if she is to have the persistent upper extremity edema. Status: Acute (2) Acute on chronic anemia: Discussed with her. Hemoccult negative. Was resumed on Lovenox. Hemoglobin steady. Resumed on warfarin. Status: Acute (3) Acute kidney injury superimposed on CKD: Status: Acute Plan Generalized weakness, likely secondary to renal failure, PT OT. Arrangements for home health. 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 Resumption of anticoagulation. Coding Level of Care Code Acute Field Sales Associate for Chg Fwd Diagnoses Acute kidney injury superimposed on CKD N17.9; N18.9 Swelling of both upper extremities M79.89 Acute on chronic anemia D64.9
[2021-08-23 20:00] VITALS: BP 95/59; PULSE 98; RESP 14; TEMP 36.8; O2SAT 99
[2021-08-23] MEDS: atorvastatin 40 mg Tablet 20 MG PO (20:14)
[2021-08-23] MEDS: levoFLOXacin 750 mg Tablet PO (20:14)
[2021-08-23 22:06] LABS: Adenovirus Not Detected (NOT DETECT); Chlamydia Pneumoniae Not Detected (NOT DETECT); Coronavirus 229E,HKU1,NL63,OC4 Not Detected (NOT DETECT); Human Metapneumovirus Not Detected (NOT DETECT); Human Rhinovirus/Enterovirus Not Detected (NOT DETECT); Influenza A Not Detected (NOT DETECT); Influenza A H1 Not Detected (NOT DETECT); Influenza A H1-2009 Not Detected (NOT DETECT); Influenza A H3 Not Detected (NOT DETECT); Influenza B Not Detected (NOT DETECT); Mycoplasma Pneumoniae Not Detected (NOT DETECT); Parainfluenza Virus Type 1 Not Detected (NOT DETECT); Parainfluenza Virus Type 2 Not Detected (NOT DETECT); Parainfluenza Virus Type 3 Not Detected (NOT DETECT); Parainfluenza Virus Type 4 Not Detected (NOT DETECT); Respiratory Syncytial Virus A Not Detected (NOT DETECT); Respiratory Syncytial Virus B Not Detected (NOT DETECT); SARS-COV-2 Not Detected (NOT DETECT)
[2021-08-24] VITALS (7 sets, daily range): BP systolic 89–149; BP diastolic 56–77; PULSE 98–130; RESP 12–22; TEMP 36.3–37.1; O2SAT 95–100
[2021-08-24] MEDS: promethazine 25 mg Tablet PO (00:18)
[2021-08-24] MEDS: TRAMadol 50 mg Tablet PO (00:18)
[2021-08-24 05:46] LABS: Basophils % 0.5 %; Eosinophils # 0.4 10^3/uL (0.0-0.8); Eosinophils % 6.6 %; Hematocrit 24.9 % (37.0-47.0); Hemoglobin 8.4 g/dL (11.5-15.3); Lymphocytes # 0.8 10^3/uL (0.8-4.8); Lymphocytes % 13.1 %; Mean Corpuscular HGB Conc 33.7 g/dL (30.0-36.0); Mean Corpuscular Hemoglobin 31.6 pg (28.0-34.0); Mean Corpuscular Volume 93.6 fl (81-99); Mean Platelet Volume 11.3 fL (7.4-10.4); Monocytes # 0.6 10^3/uL (0.2-0.9); Monocytes % 8.8 %; Neutrophils % 70.4 %; Nucleated Red Blood Cells % 0 %; Platelet Count 163 10^3/cmm (130-400); Red Blood Count 2.66 10^6/uL (4.1-5.3); Red Cell Distribution Width 16.4 % (12.1-15.1); White Blood Count 6.3 10^3/uL (4.0-10.0)
[2021-08-24 06:01] LABS: INR 0.99 (0.8-1.2)
[2021-08-24 06:11] LABS: Anion Gap 9.6 (5-19); Blood Urea Nitrogen 21 mg/dL (8-23); Calcium 8.9 mg/dL (8.5-10.5); Carbon Dioxide 30 mmol/L (22-29); Chloride 97 mmol/L (98-107); Glucose 86 mg/dL (65-115); Osmolality Calculated 278 mOsm/kg (285-295); Potassium 3.6 mmol/L (3.5-5.1); Sodium 133 mmol/L (136-145)
--- NOTE | 2021-08-24 07:59 | PM.PN ---
Subjective Subjective: No new issues. Swelling seems a little better. No uremic Sx. Urine output ok Medications: Reviewed: Yes Vitals/I&O/Wt Last Vital Signs Temp 97.4 F L 08/24/21 04:00 Pulse 98 08/24/21 04:00 Resp 12 08/24/21 04:00 BP 96/56 08/24/21 04:00 Pulse Ox 97 08/24/21 04:00 08/23/21 08/24/21 08/24/21 22:59 06:59 14:59 Intake Total 360 / 720 Output Total 675 / 675 600 / 1275 Balance -315 / 45 -600 / -555 Physical Exam Narrative: Constitutional: Awake, comfortable HEENT: Wet mucosa, no jvp, non icteric Lungs: Bilaterally clear without discernible wheeze or rales in all lung zones CVS: S1 S2, no murmurs Abdo: Soft, BS ok, ostomy noted Ext 4: Minimal edema, peripheral perfusion with no cyanosis Neurological: Grossly non-focal Data : 08/24/21 05:33 08/24/21 05:33 A&P Assessment and plan (1) Acute kidney injury superimposed on CKD: Status: Acute Plan 1. Acute on chronic kidney disease Advanced chronic kidney disease which may now be end-stage renal disease, although creatinine 2.9 today Likely to be analgesics that have now tipped her kidneys over the edge into failure. Tunneled line in Hold dialysis today, labs on Thursday in outpatient dialysis clinic, Dr Benz to monitor and decide to cont dialysis or to hold and monitor Avoid usual nephrotoxins Dose medication GFR is less than 15 Strict I's and O's 2. Chemistry Low potassium. She is refusing to have potassium injected unless it is through her palpable. Of note as an outpatient she can receive dialysis with a 4 potassium dialysate bath. We cannot give this in the hospital. 3. Dispo ok for DC Call placed and message left on daughter's voicemail (Brionna [phone]) Thank you for consultation, it is a pleasure to follow these cases with you Exam and interview performed with aid of bedside RN using telemedicine Time spent 20 min inc > 50% of time in face to face counseling Adeel Siddiqui MD [facility] [phone] Attestations Medical Necessity Statement*: eval for renal failure Coding Level of Care Code Acute Line Department Supervisor for Chg Fwd Diagnoses Acute kidney injury superimposed on CKD N17.9; N18.9
[2021-08-24] MEDS: gabapentin 400 mg Capsule 800 MG PO ×2 (08:56→15:51)
[2021-08-24] MEDS: pantoprazole DR 40 mg Tablet PO (08:56)
[2021-08-24] MEDS: aspirin 81 mg EC Tablet PO (08:56)
--- NOTE | 2021-08-24 11:17 | PC.SOCIAL ---
IMM Update pg 2 of IMM updated and reviewed w/ patient. Copy provided and copy in chart updated.
--- NOTE | 2021-08-24 12:01 | P.DS_ITS ---
Discharge Providers Date of Admission: 08/19/21 10:26 Date of Discharge: August 24, 2021 Attending Provider at Admission: Karin Kumar MD Attending Provider at Discharge: Kirk March Primary Care Provider: Veda Gilman MD Diagnoses at Discharge Discharge Diagnosis (1) Acute kidney injury superimposed on CKD: Status: Acute Reason for Visit Reason for Visit: dr paulino kidney problems Hospital Course Hospital Course 71-year-old lady with absorption, short gut syndrome, Crohn's disease recurrent electrolyte deficiency requiring transfusions, chronic anemia, with Port-A-Cath in place, low BMI, anorexia, sacral decubitus ulcer, chronic kidney disease came in with worsening renal function, LUIS ALFREDO on CKD, fluid overload, pedal edema, also needing hemodialysis, he also catheter was placed on 08/19, underwent hemodialysis sessions in the hospital with resolution of fluid overload. Did have PRN need for midodrine. She was instructed to avoid any NSAIDs. During hospitalization required 1 unit RBC transfusion. Hemoccult negative. Responded to 1 unit RBC transfusion. Due to some improvement in renal function, today no hemodialysis, pending reassessment by outpatient nephrology with consideration of additional dialysis schedule, or other additional dialysis can be foregone. Urine hospitalization developed swelling in upper arms, above elbows, around elbows in dependent matter, somewhat worse on the left, duplex ultrasound was initially assessed on the left, negative for DVT, with some difficulty with infusion of radiotracer for VQ scan in the right arm, also assessed with duplex which was also negative for DVT. Consideration is for poor venous return from upper portion of the venous system with small caliber vessels seen on the left during assessment for dialysis catheter placement as per discussion with surgery, with also some smaller vessels on the right, and presence of Port-A-Cath, which she states needs for continued infusions of electrolytes as she cannot supplement by mouth, and at the time need also for the dialysis acces s catheter. Discussed with her and her daughter, including risk of developing thrombosis. She is restarted on anticoagulation. He is asked to continue elevation of upper extremities to reduce chance of stasis, dependent edema, thrombosis. In case renal function continues to improve, chance is if does not need further dialysis catheter could hopefully be discontinued. Discussed to call 911 immediately in case of worsening of swelling, appearance of erythema, or any other concerning change in symptoms. With heterogenous appearance VQ scan was indeterminate, some interstitial infiltrate on chest x-ray with possibility of pneumonia, COVID-19 was negative. On empiric course of Levaquin. Has been saturating well on room air. Please follow-up blood count, INR, renal function, electrolytes. Continue supplementation as previously. Outpatient hemodialysis been arranged. She is intent on continuing follow-up with Dr. Benz, and is continuing dialysis with [facility]. She is stating that she continues consideration as to continuation of dialysis, and depending on her overall condition may be considering also transition to hospice care. Continue goals of care discussions. She had run out of a number of her medications for which a short supply is provided until her outpatient appointment. Physical Exam Narrative: We discussed also with daughter Hope on speaker phone during visit. Const: COMMON NORMALS: alert GENERAL APPEARANCE: cooperative NUTRITIONAL APPEARANCE: thin HENMT: COMMON NORMALS: normocephalic, EAC's normal, Normal external nose present and moist oral mucous membranes HEAD & SCALP: normocephalic NOSE: Normal external nose present EXTERNAL AUDITORY CANAL: EAC's normal Neck/C-Spine: COMMON NORMALS: no meningeal signs Chest: CHEST: Yes Symmetrical chest wall rise Resp: COMMON NORMALS: clear to auscultation bilaterally AUSCULTATION: clear to auscultation bilaterally Cardio: COMMON NORMALS: regular rate, regular rhythm and No murmurs present (Cardio) RATE: regular rate RHYTHM: regular rhythm GI: COMMON NORMALS: Normal to inspection, nondistended, normoactive bowel sounds present and Soft to palpation PALPATION: Yes Soft to palpation and Yes Tenderness to palpation present (GI) (mildly) Extremity: COMMON NORMALS: no pedal edema OTHER: Much improved, 1+ edema UE dependent upper forearms, minimally around elbows. No erythema or warmth. Neuro: COMMON NORMALS: moves all extremities SENSORIUM/ORIENTATION: Yes alert MENINGEAL SIGNS: Yes no meningeal signs Psych: COMMON NORMALS: mental status grossly normal ATTITUDE: Yes agitated MOOD & AFFECT: Yes irritable Skin: COMMON NORMALS: no wounds RASHES: no rashes Discharge Data Studies Completed and Pending Completed Studies During Hospitalization Category Date Time Status CXRP [XR chest 1V portable [id number]] Urgent Exams 08/19/21 15:46 Completed XR chest 1V portable [id number] Routine Exams 08/23/21 06:00 Completed NM pul vent and perfus* [id number] Routine Nuc Med 08/23/21 18:31 [place] [id number] Routine Ultrasound 08/23/21 13:03 Completed US renal BI* [id number] Urgent Ultrasound 08/18/21 09:01 Completed US venous duplex upper extremity LT [CV venous duplex Ultrasound 08/23/21 00:37 [place] [id number]] Routine Pending at discharge Category Date Time Status Complete Blood Count w/Auto AM LABS Lab 08/25/21 04:00 Ordered Complete Blood Count w/Auto AM LABS Lab 08/26/21 04:00 Ordered Prothrombin Time INR AM LABS Lab 08/25/21 04:00 Ordered Prothrombin Time INR AM LABS Lab 08/26/21 04:00 Ordered Radiology Impressions Renal Ultrasound 08/18/21 09:01 IMPRESSION: No acute abnormality identified. Chest X-Ray 08/23/21 06:00 IMPRESSION: 1. Interstitial infiltrates in the bilateral lower lung zones and also the region of the lingula suspicious for pneumonia. Trace left pleural effusion. 2. Pulmonary hyperinflation probably indicating obstructive lung disease. 3. Right-sided double-lumen central line and also MediPort of both appearing to be in satisfactory position. Pulmonary Perfusion Imaging 08/23/21 18:31 IMPRESSION: 1. Very difficult ejection of the radionuclide into the RIGHT upper extremity. There appears to be a partial occlusion or abnormal flow within the venous system. Consider further evaluation of the RIGHT upper extremity by ultrasound to evaluate for thrombus. The LEFT upper extremity was performed on 08/23/2021 and was negative. 2. Indeterminate probability pulmonary embolism. Very heterogeneous deposition of radionuclide and also perfusion throughout both lungs. Multiple tiny emboli cannot be excluded. Laboratory Results WBC 6.3 10^3/uL (4.0-10.0) 08/24/21 05:33 RBC 2.66 10^6/uL (4.1-5.3) L 08/24/21 05:33 Hgb 8.4 g/dL (11.5-15.3) L 08/24/21 05:33 Hct 24.9 % (37.0-47.0) L 08/24/21 05:33 MCV 93.6 fl (81-99) 08/24/21 05:33 MCH 31.6 pg (28.0-34.0) 08/24/21 05:33 MCHC 33.7 g/dL (30.0-36.0) 08/24/21 05:33 RDW 16.4 % (12.1-15.1) H 08/24/21 05:33 Plt Count 163 10^3/cmm (130-400) 08/24/21 05:33 MPV 11.3 fL (7.4-10.4) H 08/24/21 05:33 Neut % (Auto) 70.4 % 08/24/21 05:33 Lymph % (Auto) 13.1 % 08/24/21 05:33 Bradford % (Auto) 8.8 % 08/24/21 05:33 Eos % (Auto) 6.6 % 08/24/21 05:33 Baso % (Auto) 0.5 % 08/24/21 05:33 Neut # (Auto) 4.40 10^3/uL (1.8-7.7) 08/24/21 05:33 Lymph # (Auto) 0.8 10^3/uL (0.8-4.8) 08/24/21 05:33 Bradford # (Auto) 0.6 10^3/uL (0.2-0.9) 08/24/21 05:33 Eos # (Auto) 0.4 10^3/uL (0.0-0.8) 08/24/21 05:33 Baso # (Auto) 0.0 10^3/uL (0.0-0.1) 08/24/21 05:33 Nucleated RBC % (auto) 0 % 08/24/21 05:33 Nucleated RBCs # 0.0 /100WBC 08/24/21 05:33 PT 13.40 SECONDS (12.1-14.9) 08/24/21 05:33 INR 0.99 (0.8-1.2) 08/24/21 05:33 Sodium 133 mmol/L (136-145) L 08/24/21 05:33 Potassium 3.6 mmol/L (3.5-5.1) 08/24/21 05:33 Chloride 97 mmol/L (98-107) L 08/24/21 05:33 Carbon Dioxide 30 mmol/L (22-29) H 08/24/21 05:33 Anion Gap 9.6 (5-19) 08/24/21 05:33 BUN 21 mg/dL (8-23) 08/24/21 05:33 Creatinine 2.9 mg/dL (0.5-0.9) H 08/24/21 05:33 GFR Calculation Not Reportable 08/24/21 05:33 Glucose 86 mg/dL (65-115) 08/24/21 05:33 Calculated Osmolality 278 mOsm/kg (285-295) L 08/24/21 05:33 Uric Acid 9.1 mg/dL (2.4-5.7) H 08/20/21 04:46 Calcium 8.9 mg/dL (8.5-10.5) 08/24/21 05:33 Phosphorus 4.8 mg/dL (2.5-4.5) H 08/20/21 04:46 Magnesium 1.7 mg/dL (1.7-2.3) 08/19/21 05:03 Total Bilirubin 0.3 mg/dL (0.15-1.2) 08/21/21 04:45 AST 22 U/L (0-32) 08/21/21 04:45 ALT 6 U/L (0-33) 08/21/21 04:45 Alkaline Phosphatase 83 IU/L (35-105) 08/21/21 04:45 Creatine Kinase 88 U/L (26-192) 08/17/21 04:17 Troponin T Baseline 39 ng/L (0-10) H 08/18/21 13:45 Troponin T 120 Minute 37.22 ng/L (0-10) H 08/18/21 16:00 Delta Troponin T -1.78 ABS# (0-10) L 08/18/21 16:00 Troponin T Hi Sens 6Hr 34.85 ng/L (0-10) H 08/18/21 19:42 Troponin T Hi Sens 6Hr Delta -4.15 ng/L (0-12) L 08/18/21 19:42 NT-Pro-B Natriuret Pep 1448 pg/mL (0-125) H 08/17/21 04:17 Total Protein 6.0 g/dL (6.6-8.7) L 08/21/21 04:45 Albumin 3.3 g/dL (3.5-5.2) L 08/21/21 04:45 Globulin 2.7 g/dL (1.3-4.6) 08/21/21 04:45 Lipase 61 U/L (13-60) H 08/16/21 18:21 Urine Color Yellow (Yellow) 08/22/21 22:40 Urine Appearance Clear (CLEAR) 08/22/21 22:40 Urine pH 8 (5-7) H 08/22/21 22:40 Ur Specific Whiting 1.010 (1.005-1.030) 08/22/21 22:40 Urine Protein Neg (Negative) 08/22/21 22:40 Urine Glucose (UA) Norm (Normal) 08/22/21 22:40 Urine Ketones Negative (Negative) 08/22/21 22:40 Urine Blood 2+ (Negative) H 08/22/21 22:40 Urine Nitrate Negative (Negative) 08/22/21 22:40 Urine Bilirubin Neg (Negative) 08/22/21 22:40 Prot Sulfosalicylic Acd Negative (Negative) 08/22/21 22:40 Urine Urobilinogen Norm mg/dL (Negative) 08/22/21 22:40 Ur Leukocyte Esterase Negative (Negative) 08/22/21 22:40 Urine RBC 5-10 /hpf (0-2) H 08/22/21 22:40 Urine WBC 0-4 /hpf (0-5) H 08/22/21 22:40 Ur Squamous Epith Cells 0-4 /hpf (0-5) H 08/22/21 22:40 Amorphous Sediment Not Reportable 08/22/21 22:40 Urine Bacteria None /hpf (NONE) 08/22/21 22:40 Ur Random Sodium 59 mmol/L 08/17/21 14:55 Urine Creatinine 83 mg/dL (28-217) 08/17/21 14:55 Coronavirus 229E (PCR) Not detected (NOT DETECT) 08/23/21 20:15 Hep Bs Antigen Non-reactive (Nonreactive) 08/17/21 04:17 Hep Bs Antibody < 3.5 (11.5-1000) L 08/17/21 04:17 Hep B Core Total Ab Non-reactive (Nonreactive) 08/17/21 04:17 SARS-CoV-2 (PCR) Not detected (NOT DETECT) 08/23/21 20:15 Blood Type O Negative 08/21/21 09:23 Rho(D) Type Negative 08/21/21 09:23 Antibody Screen Negative 08/21/21 09:23 Crossmatch See Detail 08/21/21 09:23 Vitals Last Vital Signs Temp 98.7 F 08/24/21 11:40 Pulse 115 H 08/24/21 11:40 Resp 18 08/24/21 11:40 BP 149/77 08/24/21 11:40 Pulse Ox 95 08/24/21 11:40 Discharge Plan Discharge Patient Disposition: Home Condition: Stable Prescriptions: New pantoprazole 40 mg Tablet,Delayed Release (Dr/Ec) 40 mg PO BID 42 Days Qty: 84 0RF midodrine 5 mg Tablet 5 mg PO BID PRN (Reason: Hypotension) Qty: 60 0RF Rx Instructions: With dialysis levofloxacin 750 mg Tablet 750 mg PO Q48H Qty: 3 0RF Continued (DME) ostomy wipes See Rx Instructions .Route .MEDSUPPLY Qty: 100 0RF Rx Instructions: As directed (DME) [facility] Joint Brace See Rx Instructions .ROUTE .MEDSUPPLY Qty: 1 0RF Rx Instructions: As directed MAGNESIUM SULFATE See Rx Instructions .ROUTE .COMPLEX Qty: 2 11RF Rx Instructions: 2GM IVPB PRN WEEKLY IF MAGNESIUM LEVEL BELOW 1.8; acetaminophen [Tylenol Extra Strength] 500 mg Tablet 1,000 mg PO PRN 0RF albuterol sulfate [Ventolin HFA] 90 mcg/actuation Hfa Aerosol Inhaler 2 puff INHALATION Q4H PRN (Reason: Shortness Of Breath) 0RF magnesium oxide 400 mg (241.3 mg magnesium) tablet 800 mg PO BID 0RF aspirin 81 mg Tablet,Delayed Release (Dr/Ec) 81 mg PO BID 0RF Klor-Con M20 20 mEq tablet,ER particles/crystals 40 meq PO BID 0RF atorvastatin 20 mg tablet 20 mg PO BEDTIME Qty: 30 0RF gabapentin 400 mg Capsule 800 mg PO TID Qty: 90 0RF tramadol 50 mg tablet 50 mg PO Q6H PRN (Reason: pain) Qty: 28 0RF warfarin 1 mg tablet 1 mg PO DAILY Qty: 30 0RF Changed promethazine 25 mg tablet 25 mg PO BID PRN (Reason: Nausea) Qty: 60 0RF Discharge Orders: Discharge Order (Routine); Ordered 08/24/21 Ordered By: Kirk March Other Ambulatory Orders: DME: Hospital Bed (Order) Location: None Selected Ordered By: Kirk March DME: Shower Chair (Order) Location: None Selected Ordered By: Kirk March Referrals: Lyn [Other] - 4-7 days (Please arrive @ 0900 for chair time on Thursday, , and Thursday. With your first treatment being Thursday08/27/2021 @ 0900. They ask that you get there 30 mins early the first appointment to complete paperwork.) Toni Castle [Other] - 4-7 days (Primary provider please call tomorrow and make a follow up appointment with primary care in 4-7 days. ) Malcom Benz MD [Referring] - 4-7 days (Please call [phone] to schedule your follow up appointment with Dr. Benz. Your follow up should be within 4-7 days. Thank you.) Discharge Activity: Increase activity as tolerated Patient Instructions: Anemia, Crohn's Disease, Midodrine (By mouth), Levofloxacin (By mouth) (Levaquin, Levaquin Leva-sandra), Pantoprazole (By mouth) (Protonix), Opioid Safety Activity Restrictions/Additional Instructions: Please follow-up with your primary provider for reassessment of renal function, as well as electrolytes including potassium. Continued supplementation infusions as before. Please have your primary provider also reassess blood count for anemia. Your blood counts responded well to transfusion with increase from 7.1-9. Follow up with your primary doctor regarding warfarin anticoagulation and recheck of INR. Follow up for resolution of possible pneumonia. COVID 19 panel was negative. 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 Continue renal, hemodialysis diet. Return to surgery office as needed regarding dialysis catheter, Port-A-Cath. Follow up with your primary doctor for reassessment due to poor venous return from upper extremities. Keep arms elevated to heart level to prevent accumulation of swelling. Please make sure to avoid any NSAIDs like ibuprofen, Aleve, etc to prevent injury to your kidneys. Continue follow-up with primary provider regarding sacral ulcer, atrial fibrillation and anticoagulation, Crohn's disease and short bowel syndrome, coronary artery disease and other chronic conditions. Continue discussions regarding your wishes for goals of care, continuation of dialysis. Discharge Attestations Time Spent in Discharge Care*: greater than 30 min Quality Metrics Clinical Quality Measures [ No reported AMI, CVA or VTE this stay] Coding Level of Care Code Acute Chg FW DC note Exam Comprehensive Diagnoses Acute kidney injury superimposed on CKD N17.9; N18.9
[2021-08-24] MEDS: warfarin 2 mg Tablet 1 MG PO (15:50)
== END 2021-08-24 15:58 | disposition home or self-care (01) | DRG 674 ==
LOC: ER 19:32 → MEDSURG 20:24
PROVIDERS: Family Medicine; Internal Medicine Nephrology; Surgery; Admitting Provider Hospitalist; Emergency Provider Emergency Medicine; PCP Family Medicine; Visit Provider Internal Medicine
PROC: 0JH63XZ Insertion of Tunneled Vascular Access Device into Chest Subcutaneous Tissue and Fascia, Percutaneous Approach (ICD-10-PCS; principal; 2021-08-19 13:15)
DX: N17.9 Acute kidney failure, unspecified (principal); K50.80 Crohn's disease of both small and large intestine without complications; Z68.1 Body mass index [BMI] 19.9 or less, adult; I47.2 Ventricular tachycardia; E44.1 Mild protein-calorie malnutrition; E87.6 Hypokalemia; E83.42 Hypomagnesemia; D63.1 Anemia in chronic kidney disease; Z93.2 Ileostomy status; R60.9 Edema, unspecified; Z79.01 Long term (current) use of anticoagulants; Z79.82 Long term (current) use of aspirin; M89.342 Hypertrophy of bone, left hand; M89.341 Hypertrophy of bone, right hand; R27.8 Other lack of coordination; R63.0 Anorexia; N18.6 End stage renal disease; M79.89 Other specified soft tissue disorders
CPT/HCPCS: 36415; 36591; 71045; 76000; 76770; 77001; 78014; 80048; 80053; 81001; 81003; 82274; 82550; 82575; 83690; 83735; 83880; 84100; 84300; 84484; 84550; 85025; 85610; 86705; 86706; 86850; 86900; 86920; 87340; 87635; 93005; 93971; 96365; 96366; 96372; 99285; A9540; A9567; C1750; G0378; J0744; J1170; J1200; J1644; J1650; J1940; J2270; J2405; J2704; J3010; J3480; J7030; P9040; Q0169; Q3014

== ENCOUNTER 2021-09-13 08:41 | Outpatient (CLI) | payer MEDICARE, SELFPAY ==
[2021-09-13 09:38] LABS: Albumin Level 3.8 g/dL (3.5-5.2); Anion Gap 15.7 (5-19); Blood Urea Nitrogen 17 mg/dL (8-23); Calcium 9.4 mg/dL (8.5-10.5); Carbon Dioxide 36 mmol/L (22-29); Chloride 91 mmol/L (98-107); Glucose 122 mg/dL (65-115); Magnesium 1.5 mg/dL (1.7-2.3); Phosphorus 2.5 mg/dL (2.5-4.5); Sodium 140 mmol/L (136-145)
[2021-09-13 10:12] LABS: Potassium 2.7 mmol/L (3.5-5.1)
== END 2021-09-13 08:42 | disposition home or self-care (01) ==
PROVIDERS: PCP Family Medicine; Visit Provider Internal Medicine Nephrology
DX: N17.9 Acute kidney failure, unspecified (principal)
CPT/HCPCS: 80069; 83735

== ENCOUNTER 2021-09-19 11:46 | Emergency (ER) | payer MEDICARE, SELFPAY ==
[2021-09-19 12:48] VITALS: BP 80/45; PULSE 85; RESP 16; TEMP 36.9; O2SAT 92; BMI 12.8
--- NOTE | 2021-09-19 13:12 | XRR_ITS ---
PROCEDURE INFORMATION: Exam: XR Left Hand Exam date and time: 09/19/2021 1:35 PM Age: 71 years old Clinical indication: Pain; Hand; Bilateral TECHNIQUE: Imaging protocol: Radiologic exam of the Left hand. Views: 3 or more views. COMPARISON: CR XR hand LT min 3V* [id number] 04/27/2020 2:40 PM FINDINGS: Bones/joints: Osteopenia and osteoarthritis is seen with narrowing of the interphalangeal articulation of multiple digits. There is a circumscribed bone cyst involving the distal aspect of the proximal phalange of the index finger. This finding measures 7.8 mm x 4.5 mm and was not present on prior examination. Postoperative hardware is seen in the distal wrist with metallic plate and screws in place. These findings were stable since prior Soft tissues: Soft tissue edema is seen adjacent to the proximal interphalangeal articulation of the index finger XR/XR hand LT min 3V* [id number] IMPRESSION: 1. Osteopenia and osteoarthritis. 2. Negative for acute bony abnormality. 3. New circumscribed bone cyst index finger. 4. Stable ORIF hardware left radius 5. Soft tissue edema index finger
--- NOTE | 2021-09-19 13:12 | XRR_ITS ---
PROCEDURE INFORMATION: Exam: XR Left Knee Exam date and time: 09/19/2021 1:31 PM Age: 71 years old Clinical indication: Swelling or effusion of joint; Left; Patient HX: Lt knee pain and swelling no trauma TECHNIQUE: Imaging protocol: Radiologic exam of the Left knee. Views: 3 views. COMPARISON: CR XR foot LT min 3V* [id number] 04/27/2020 2:35 PM FINDINGS: Bones/joints: General osteopenia is seen. Negative for acute bony abnormality. Soft tissues: Unremarkable XR/XR knee LT 3V* [id number] IMPRESSION: No acute findings.
--- NOTE | 2021-09-19 13:12 | XRR_ITS ---
PROCEDURE INFORMATION: Exam: XR Right Hand Exam date and time: 09/19/2021 1:38 PM Age: 71 years old Clinical indication: Bilateral; Patient HX: Hand pain no trauma TECHNIQUE: Imaging protocol: Radiologic exam of the Right hand. Views: 3 or more views. COMPARISON: OT Finger RIGHT [id number] 08/03/2018 7:40 AM FINDINGS: Bones/joints: A metallic screw is present extending through the index finger distal and middle phalange. This finding was seen on prior intraoperative examination. No acute bony abnormalities are documented. Severe osteoarthritis is present involving the proximal interphalangeal joint 5th digit. Soft tissues: Soft tissue edema is seen in the distal aspect of the index finger and 3rd digit. XR/XR hand RT min 3V* [id number] IMPRESSION: 1. No acute findings. 2. Postoperative screw distal aspect of the index finger. 3. 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 Soft tissue edema distal index and 3rd digit
--- NOTE | 2021-09-19 13:34 | ED_ITS ---
HPI - Extremity Problem General: Chief complaint: Extremity Problem,Nontraumatic Stated complaint: Swelling in legs and fingers, dialysis sent Time Seen by Provider: 09/19/21 12:59 Source: patient Mode of arrival: ambulatory Limitations: no limitations History of Present Illness: 71-year-old female with a history of end-stage renal disease use occasional dialysis. She comes in complaining of some pain and swelling at the tibial tuberosity of the left leg swelling in her right hand at her left index finger she not had any fever sweats or chills. No specific injury or problem she can isolate. She gets dialysis occasionally several times she has not needed dialysis. MD Complaint: extremity pain and extremity swelling Location: upper extremity (Right hand, left index finger, left tibial tuberosity) and lower extremity Quality: aching Relieving factors: rest Exacerbating factors: range of motion and exertion Associated symptoms: Deny chest pain, fever(s) or rash Review of Systems Const: Denies: fever(s), chills, body aches, change in appetite, fatigue or malaise ENMT: Denies: throat pain, ear or mastoid pain, nasal discharge or nasal congestion Card: Denies: chest pain, palpitations, irregular heart rhythm, edema, dyspnea on exertion or orthopnea Resp: Denies: dyspnea, productive cough or non-productive cough GI: Denies: abdominal pain, nausea, vomiting, hematemesis, coffee ground emesis, diarrhea, constipation, bloating, hematochezia or melena : Denies: flank pain, difficulty voiding, dysuria, urinary frequency or urinary urgency Musc: Reports: joint pain and joint swelling Skin/Breast: Denies: rash or pruritus PFS ED PFSH: Medical History Atrial fibrillation not chronic Autonomic neuropathy BMI less than 19,adult Chronic anemia mixed B12 and iron deficiency 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 Baseline creatinine in 2020 records here 2.0-4.0. Has required hemodialysis in past during times of acute illness. Follows with Dr Benz. Creatinine has been as high as 17 in setting of severe pre-renal azotemia. COVID-19 (~10/2019) Crohn's disease s/p total colectomy (1980) with ileostomy (2002) History of MRSA infection History of pelvic fracture Hyperaldosteronism At at least one point in time felt secondary to aldactone rather than primary Hyperlipidemia Hypersomnia Hypertrophy of bone of hand Hypokalemia chronically on IV infusions of potassium and magnesium Hypomagnesemia chronic Local infection due to Port-A-Cath (~2019) Myocardial infarction (lateral wall) Appears to have been identified during a prolonged hospital stay and possibly type II process. Had not required cardiac intervention. Osteoarthritis Osteoporosis Peripheral neuropathy Raynauds syndrome Severe protein-calorie malnutrition Short gut syndrome Stage III pressure ulcer Systolic congestive heart failure Diagnosed in 04/2019 at [facility] during a time of prolonged hospital care. Multiple echocardiograms show preserved EF 50-60% since that time. Appears to have been a transient issue related to acute medical issues at that time. Ventricular tachycardia (paroxysmal) related to electrolyte abnormalities Vitamin B12 deficiency Surgical History H/O ileostomy (~2002) H/O total colectomy (~2002) History of arthrodesis (08/03/18) right index finger History of delivery x4 History of hernia repair History of right hip replacement (~08/2019) History of tubal ligation Hx of appendectomy Port-A-Cath in place (10/12/19) right IJ Status post open reduction and internal fixation (ORIF) of fracture (12/22/19) left radius, Irina Status post open reduction and internal fixation (ORIF) of fracture (11/2019) right humerus, Irina Status post open reduction and internal fixation (ORIF) of fracture right hip Family History Other CAD (coronary artery disease) Cancer Congestive heart failure Diabetes Hyperlipidemia Social History Smoking and tobacco status: never smoked Second hand smoke exposure: No Alcohol intake: never Current occupational status: retired Physical Exam Const: GENERAL APPEARANCE: cooperative and comfortable ORIENTATION/CONSCIOUSNESS: Yes awake, Yes oriented to person, Yes oriented to place and Yes oriented to time HENMT: COMMON NORMALS: normocephalic, atraumatic and hearing grossly normal bilaterally HEAD & SCALP: normocephalic and atraumatic Neck/C-Spine: COMMON NORMALS: no JVD Resp: COMMON NORMALS: normal respiratory effort, No retractions, No use of accessory muscles and clear to auscultation bilaterally AUSCULTATION: clear to auscultation bilaterally Cardio: COMMON NORMALS: no JVD, regular rate, regular rhythm and No murmurs present (Cardio) RATE: regular rate RHYTHM: regular rhythm GI: COMMON NORMALS: Soft to palpation and No hepatosplenomegaly present AUSCULTATION: Yes normoactive bowel sounds PALPATION: Yes Soft to palpation, No Tenderness to palpation present (GI), No Guarding due to palpation present (GI) and Yes No hepatosplenomegaly present Extremity: COMMON NORMALS: normal to inspection, capillary refill normal, no clubbing, cyanosis or edema, no calf tenderness and no pedal edema Neuro: SENSORIUM/ORIENTATION: Yes oriented to person, Yes oriented to place and Yes oriented to time Skin: COMMON NORMALS: no rashes or lesions noted GENERAL SKIN EXAM: no rashes or lesions noted Course Vital Signs: Vital signs: Vital Signs Temperature 98.4 F 09/19/21 12:48 Pulse Rate 85 09/19/21 12:48 Respiratory Rate 16 09/19/21 12:48 Blood Pressure 80/45 09/19/21 12:48 Pulse Oximetry 92 09/19/21 12:48 MDM - Extremity (Nontraumatic) Medical Decision Making Patient has joint effusion of the hand and a little bit at the knee tibial tuberosity seems to be more problems than anything. We will put her on a short course of steroids have her follow-up with orthopedics. She is also signi ficantly hypokalemic that is a chronic problem for her she is on significant amount of supplement. I gave her an extra dose of potassium here follow-up with nephrology. Lab Data : 09/19/21 13:20 09/19/21 13:20 Radiology Impressions Hand X-Ray 09/19/21 13:12 IMPRESSION: 1. Osteopenia and osteoarthritis. 2. Negative for acute bony abnormality. 3. New circumscribed bone cyst index finger. 4. Stable ORIF hardware left radius 5. Soft tissue edema index finger Knee X-Ray 09/19/21 13:12 IMPRESSION: No acute findings. Laboratory Results WBC 7.2 10^3/uL (4.0-10.0) 09/19/21 13:20 RBC 3.18 10^6/uL (4.1-5.3) L 09/19/21 13:20 Hgb 10.1 g/dL (11.5-15.3) L 09/19/21 13:20 Hct 31.4 % (37.0-47.0) L 09/19/21 13:20 MCV 98.7 fl (81-99) 09/19/21 13:20 MCH 31.8 pg (28.0-34.0) 09/19/21 13:20 MCHC 32.2 g/dL (30.0-36.0) 09/19/21 13:20 RDW 16.9 % (12.1-15.1) H 09/19/21 13:20 Plt Count 153 10^3/cmm (130-400) 09/19/21 13:20 MPV 11.8 fL (7.4-10.4) H 09/19/21 13:20 Neut % (Auto) 76.7 % 09/19/21 13:20 Lymph % (Auto) 12.3 % 09/19/21 13:20 [place] % (Auto) 9.5 % 09/19/21 13:20 Eos % (Auto) 0.6 % 09/19/21 13:20 Baso % (Auto) 0.3 % 09/19/21 13:20 Neut # (Auto) 5.51 10^3/uL (1.8-7.7) 09/19/21 13:20 Lymph # (Auto) 0.9 10^3/uL (0.8-4.8) 09/19/21 13:20 [place] # (Auto) 0.7 10^3/uL (0.2-0.9) 09/19/21 13:20 Eos # (Auto) 0.0 10^3/uL (0.0-0.8) 09/19/21 13:20 Baso # (Auto) 0.0 10^3/uL (0.0-0.1) 09/19/21 13:20 Nucleated RBC % (auto) 0 % 09/19/21 13:20 Nucleated RBCs # 0.0 /100WBC 09/19/21 13:20 Sodium 138 mmol/L (136-145) 09/19/21 13:20 Potassium 2.5 mmol/L (3.5-5.1) L* 09/19/21 13:20 Chloride 86 mmol/L (98-107) L 09/19/21 13:20 Carbon Dioxide 41 mmol/L (22-29) H 09/19/21 13:20 Anion Gap 13.5 (5-19) 09/19/21 13:20 BUN 32 mg/dL (8-23) H 09/19/21 13:20 Creatinine 3.6 mg/dL (0.5-0.9) H 09/19/21 13:20 GFR Calculation Not Reportable 09/19/21 13:20 Glucose 95 mg/dL (65-115) 09/19/21 13:20 Calculated Osmolality 293 mOsm/kg (285-295) 09/19/21 13:20 Calcium 9.0 mg/dL (8.5-10.5) 09/19/21 13:20 Total Bilirubin 0.7 mg/dL (0.15-1.2) 09/19/21 13:20 AST 18 U/L (0-32) 09/19/21 13:20 ALT 7 U/L (0-33) 09/19/21 13:20 Alkaline Phosphatase 110 IU/L (35-105) H 09/19/21 13:20 Total Protein 6.9 g/dL (6.6-8.7) 09/19/21 13:20 Albumin 3.9 g/dL (3.5-5.2) 09/19/21 13:20 Globulin 3.0 g/dL (1.3-4.6) 09/19/21 13:20 Discharge Plan Discharge Patient Disposition: Home Clinical Impression: Joint effusion of hand, Joint effusion of knee Condition: Stable Prescriptions: New prednisone 20 mg tablet 20 mg PO TID Qty: 15 0RF Rx Instructions: 1 p.o. 3 times daily x3 days, 1 p.o. twice daily x2 days, 1 p.o. daily x2 days No Action (DME) ostomy wipes See Rx Instructions .Route .MEDSUPPLY Qty: 100 0RF Rx Instructions: As directed (DME) [facility] Joint Brace See Rx Instructions .ROUTE .MEDSUPPLY Qty: 1 0RF Rx Instructions: As directed MAGNESIUM SULFATE See Rx Instructions .ROUTE .COMPLEX Qty: 2 11RF Rx Instructions: 2GM IVPB PRN WEEKLY IF MAGNESIUM LEVEL BELOW 1.8; acetaminophen [Tylenol Extra Strength] 500 mg Tablet 1,000 mg PO PRN 0RF albuterol sulfate [Ventolin HFA] 90 mcg/actuation Hfa Aerosol Inhaler 2 puff INHALATION Q4H PRN (Reason: Shortness Of Breath) 0RF magnesium oxide 400 mg (241.3 mg magnesium) tablet 800 mg PO BID 0RF aspirin 81 mg Tablet,Delayed Release (Dr/Ec) 81 mg PO BID 0RF Klor-Con M20 20 mEq tablet,ER particles/crystals 40 meq PO BID 0RF pantoprazole 40 mg Tablet,Delayed Release (Dr/Ec) 40 mg PO BID 42 Days Qty: 84 0RF midodrine 5 mg Tablet 5 mg PO BID PRN (Reason: Hypotension) Qty: 60 0RF Rx Instructions: With dialysis levofloxacin 750 mg Tablet 750 mg PO Q48H Qty: 3 0RF atorvastatin 20 mg tablet 20 mg PO BEDTIME Qty: 30 0RF gabapentin 400 mg Capsule 800 mg PO TID Qty: 90 0RF tramadol 50 mg tablet 50 mg PO Q6H PRN (Reason: pain) Qty: 28 0RF promethazine 25 mg tablet 25 mg PO BID PRN (Reason: Nausea) Qty: 60 0RF warfarin 1 mg tablet 1 mg PO DAILY Qty: 30 0RF Discharge Orders: Discharge ED (Routine); Ordered 09/19/21 Ordered By: Eusebio Crandall Referrals: Veda Gilman MD [Primary Care Provider] - Patient Instructions: Opioid Safety Activity Restrictions/Additional Instructions: Follow-up with your primary care doctor within the next week. Coding Level of Care Code ED Social Services Assistant for [place] Fwd Exam Comprehensive
[2021-09-19 13:57] LABS: Basophils % 0.3 %; Eosinophils % 0.6 %; Hematocrit 31.4 % (37.0-47.0); Hemoglobin 10.1 g/dL (11.5-15.3); Lymphocytes # 0.9 10^3/uL (0.8-4.8); Lymphocytes % 12.3 %; Mean Corpuscular HGB Conc 32.2 g/dL (30.0-36.0); Mean Corpuscular Hemoglobin 31.8 pg (28.0-34.0); Mean Corpuscular Volume 98.7 fl (81-99); Mean Platelet Volume 11.8 fL (7.4-10.4); Monocytes # 0.7 10^3/uL (0.2-0.9); Monocytes % 9.5 %; Neutrophils # 5.51 10^3/uL (1.8-7.7); Neutrophils % 76.7 %; Nucleated Red Blood Cells % 0 %; Platelet Count 153 10^3/cmm (130-400); Red Blood Count 3.18 10^6/uL (4.1-5.3); Red Cell Distribution Width 16.9 % (12.1-15.1); White Blood Count 7.2 10^3/uL (4.0-10.0)
[2021-09-19 14:18] LABS: Alanine Aminotransferase 7 U/L (0-33); Albumin Level 3.9 g/dL (3.5-5.2); Alkaline Phosphatase 110 IU/L (35-105); Anion Gap 13.5 (5-19); Aspartate Amino Transferase 18 U/L (0-32); Blood Urea Nitrogen 32 mg/dL (8-23); Chloride 86 mmol/L (98-107); Glucose 95 mg/dL (65-115); Osmolality Calculated 293 mOsm/kg (285-295); Sodium 138 mmol/L (136-145); Total Bilirubin 0.7 mg/dL (0.15-1.2); Total Protein 6.9 g/dL (6.6-8.7)
[2021-09-19 14:20] LABS: Carbon Dioxide 41 mmol/L (22-29)
[2021-09-19 14:21] LABS: Potassium 2.5 mmol/L (3.5-5.1)
[2021-09-19] MEDS: dexamethasone 10 mg/mL INJ IVP (15:01)
[2021-09-19] MEDS: potassium chloride oral liq 20 mEq/15 mL UDC 60 MEQ PO (15:02)
--- NOTE | 2021-09-20 09:16 | DCPLANNER ---
Addendum entered by Jody Sierra 09/25/21 12:50: Patient had a follow up appointment scheduled for 09.24.21 - patient did not attend appointment. Original Note: booth manager had message to schedule a follow up appointment for patient with ortho. booth manager sent patients information to the front office staff at ortho. Patients information will be printed and reviewed. Clinic will call patient with appointment information.
== END 2021-09-19 15:12 | disposition home or self-care (01) ==
PROVIDERS: Emergency Provider Family Medicine; PCP Family Medicine
DX: M25.442 Effusion, left hand (principal); M25.461 Effusion, right knee; Z79.82 Long term (current) use of aspirin; Z79.01 Long term (current) use of anticoagulants; N18.6 End stage renal disease; Z99.2 Dependence on renal dialysis; E78.5 Hyperlipidemia, unspecified; I25.2 Old myocardial infarction; I50.20 Unspecified systolic (congestive) heart failure; N17.9 Acute kidney failure, unspecified
CPT/HCPCS: 73130; 73562; 80053; 80069; 83735; 85025; 96374; 99284; J1100

== ENCOUNTER 2021-09-19 11:53 | Outpatient (CLI) | payer MEDICARE, SELFPAY ==
[2021-09-19 13:04] LABS: Albumin Level 3.9 g/dL (3.5-5.2); Anion Gap 13.5 (5-19); Blood Urea Nitrogen 32 mg/dL (8-23); Calcium 9.1 mg/dL (8.5-10.5); Chloride 86 mmol/L (98-107); Glucose 101 mg/dL (65-115); Magnesium 1.6 mg/dL (1.7-2.3); Phosphorus 3.9 mg/dL (2.5-4.5); Sodium 139 mmol/L (136-145)
[2021-09-20 09:27] LABS: Carbon Dioxide 42 mmol/L (22-29); Potassium 2.5 mmol/L (3.5-5.1)
== END 2021-09-19 11:54 | disposition home or self-care (01) ==
PROVIDERS: PCP Family Medicine; Visit Provider Internal Medicine Nephrology
DX: N17.9 Acute kidney failure, unspecified (principal)
CPT/HCPCS: 80069; 83735

== ENCOUNTER 2021-10-24 08:03 | Outpatient (RCR) | payer MEDICARE, SELFPAY ==
[2021-10-10 08:28] VITALS: BP 109/67; PULSE 104; RESP 18; TEMP 37.1; O2SAT 97
[2021-10-10] MEDS: potassium chloride premix 100 ML 35 MEQ IV (08:36)
[2021-10-10] MEDS: sodium chloride 0.9% 1,000 ML 999 ML IV (08:36)
[2021-10-10 09:05] LABS: Anion Gap 12.8 (5-19); Blood Urea Nitrogen 27 mg/dL (8-23); Calcium 8.9 mg/dL (8.5-10.5); Carbon Dioxide 34 mmol/L (22-29); Chloride 90 mmol/L (98-107); Glucose 90 mg/dL (65-115); Magnesium 1.2 mg/dL (1.7-2.3); Osmolality Calculated 283 mOsm/kg (285-295); Sodium 134 mmol/L (136-145)
[2021-10-10 09:24] LABS: Potassium 2.8 mmol/L (3.5-5.1)
[2021-10-10] MEDS: magnesium sulfate premix 2 GM/50 ML PIGGYBACK IV (09:27)
[2021-10-17] MEDS: sodium chloride 0.9% 1,000 ML 999 ML IV (08:07)
[2021-10-17] MEDS: potassium chloride premix 100 ML 37.5 MEQ IV (08:15)
[2021-10-17 08:22] VITALS: BP 94/51; PULSE 94; RESP 18; TEMP 36.4; O2SAT 98
[2021-10-17 08:34] LABS: Anion Gap 11.8 (5-19); Blood Urea Nitrogen 13 mg/dL (8-23); Calcium 8.3 mg/dL (8.5-10.5); Chloride 86 mmol/L (98-107); Glucose 119 mg/dL (65-115); Magnesium 1.2 mg/dL (1.7-2.3); Osmolality Calculated 287 mOsm/kg (285-295); Sodium 138 mmol/L (136-145)
[2021-10-17 08:53] LABS: Carbon Dioxide 42 mmol/L (22-29); Potassium 1.8 mmol/L (3.5-5.1)
[2021-10-17] MEDS: magnesium sulfate premix 2 GM/50 ML PIGGYBACK IV (09:20)
[2021-10-24] MEDS: sodium chloride 0.9% 1,000 ML 999 ML IV (08:28)
[2021-10-24] MEDS: potassium chloride premix 100 ML 37 MEQ IV (08:28)
[2021-10-24 08:30] VITALS: BP 108/71; PULSE 100; RESP 18; TEMP 36.5; O2SAT 94
[2021-10-24 08:46] LABS: Basophils % 0.3 %; Eosinophils # 0.1 10^3/uL (0.0-0.8); Eosinophils % 0.9 %; Hematocrit 38.5 % (37.0-47.0); Hemoglobin 12.9 g/dL (11.5-15.3); Lymphocytes # 1.1 10^3/uL (0.8-4.8); Lymphocytes % 10.5 %; Mean Corpuscular HGB Conc 33.5 g/dL (30.0-36.0); Mean Corpuscular Hemoglobin 31.6 pg (28.0-34.0); Mean Corpuscular Volume 94.4 fl (81-99); Mean Platelet Volume 11.3 fL (7.4-10.4); Monocytes % 9.6 %; Neutrophils # 8.46 10^3/uL (1.8-7.7); Neutrophils % 78.2 %; Nucleated Red Blood Cells % 0 %; Platelet Count 281 10^3/cmm (130-400); Red Blood Count 4.08 10^6/uL (4.1-5.3); Red Cell Distribution Width 15.8 % (12.1-15.1); White Blood Count 10.8 10^3/uL (4.0-10.0)
[2021-10-24 09:50] LABS: Anion Gap 16.4 (5-19); Blood Urea Nitrogen 30 mg/dL (8-23); Chloride 74 mmol/L (98-107); Glucose 98 mg/dL (65-115); Magnesium 1.8 mg/dL (1.7-2.3); Osmolality Calculated 284 mOsm/kg (285-295); Sodium 134 mmol/L (136-145)
[2021-10-24 10:12] LABS: Potassium 2.4 mmol/L (3.5-5.1)
[2021-10-24 10:14] LABS: Carbon Dioxide 46 mmol/L (22-29)
--- NOTE | 2021-10-24 12:03 | PC.NURSE ---
1100 Morenita Olivares's nurse, Jennifer, notified of critical potassium and CO2 levels. CBC and CMP results faxed to office. No new orders at this time.
== END 2021-10-30 23:59 | disposition home or self-care (01) ==
LOC: GILAB 08:03
PROVIDERS: PCP Family Medicine; Visit Provider Registered Nurse
DX: N18.4 Chronic kidney disease, stage 4 (severe) (principal); D63.1 Anemia in chronic kidney disease; E87.6 Hypokalemia; E83.42 Hypomagnesemia
CPT/HCPCS: 36591; 80048; 83735; 85025; 96360; 96365; 96366; 96367; J3475; J3480; J7030

== ENCOUNTER 2021-10-28 18:59 | Emergency (ER) | payer MEDICARE, SELFPAY ==
[2021-10-28 19:11] VITALS: BMI 12.8
--- NOTE | 2021-10-28 19:13 | W.ED.UPPEXIN ---
Documented by User: ERNESTINE Aguilar 10/28/21 20:18 HPI - Extremity Injury (Upper) General: Chief Complaint: Extremity Injury, Upper Stated Complaint: BROKEN RIGHT ARM Time Seen by Provider: 10/28/21 19:13 History of Present Illness: 71-year-old female comes in today for injury she sustained from a slip and fall. Patient used her outstretched right arm to try to catch herself and injured her right wrist. Patient also reports striking her elbow against the ground on the same side. Deformity is noted to the right wrist, prompt cap refills and pulses are intact. Associated symptoms: Denies neck pain Review of Systems General: Reports: 10 or more systems reviewed and unremarkable except in HPI and below Musc: Reports: extremity pain and extremity swelling; Denies: neck pain or back pain Skin/Breast: Denies: rash or new lesions Neuro: Denies: headache(s) PFS ED PFSH: Medical History Atrial fibrillation not chronic Autonomic neuropathy BMI less than 19,adult Chronic anemia mixed B12 and iron deficiency 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 Baseline creatinine in 2020 records here 2.0-4.0. Has required hemodialysis in past during times of acute illness. Follows with Dr Benz. Creatinine has been as high as 17 in setting of severe pre-renal azotemia. COVID-19 (~10/2019) Crohn's disease s/p total colectomy (1980) with ileostomy (2002) History of MRSA infection History of pelvic fracture Hyperaldosteronism At at least one point in time felt secondary to aldactone rather than primary Hyperlipidemia Hypersomnia Hypertrophy of bone of hand Hypokalemia chronically on IV infusions of potassium and magnesium Hypomagnesemia chronic Local infection due to Port-A-Cath (~2019) Myocardial infarction (lateral wall) Appears to have been identified during a prolonged hospital stay and possibly type II process. Had not required cardiac intervention. Osteoarthritis Osteoporosis Peripheral neuropathy Raynauds syndrome Severe protein-calorie malnutrition Short gut syndrome Stage III pressure ulcer Systolic congestive heart failure Diagnosed in 04/2019 at [facility] (Formerly [facility]) during a time of prolonged hospital care. Multiple echocardiograms show preserved EF 50-60% since that time. Appears to have been a transient issue related to acute medical issues at that time. Ventricular tachycardia (paroxysmal) related to electrolyte abnormalities Vitamin B12 deficiency Surgical History H/O ileostomy (~2002) H/O total colectomy (~2002) History of arthrodesis (08/03/18) right index finger History of delivery x4 History of hernia repair History of right hip replacement (~08/2019) History of tubal ligation Hx of appendectomy Port-A-Cath in place (10/12/19) right IJ Status post open reduction and internal fixation (ORIF) of fracture (12/22/19) left radius, Irina Status post open reduction and internal fixation (ORIF) of fracture (11/2019) right humerus, Irina Status post open reduction and internal fixation (ORIF) of fracture right hip Family History Other CAD (coronary artery disease) Cancer Congestive heart failure Diabetes Hyperlipidemia Social History Smoking and tobacco status: never smoked Second hand smoke exposure: No Alcohol intake: never Current occupational status: retired Physical Exam Const: COMMON NORMALS: alert HENMT: COMMON NORMALS: atraumatic HEAD & SCALP: atraumatic Neck/C-Spine: COMMON NORMALS: full ROM CERVICAL SPINE: No Cervical spine tenderness Chest: COMMONS NORMALS: normal palpation of entire chest wall Resp: COMMON NORMALS: normal respiratory effort Cardio: COMMON NORMALS: regular rate RATE: regular rate GI: COMMON NORMALS: Soft to palpation and non-tender PALPATION: Yes Soft to palpation : COMMON NORMALS: Yes no CVA tenderness BLADDER/KIDNEY EXAM: Yes no CVA tenderness Back/Pelvis: COMMON NORMALS: no CVA tenderness Extremity: RIGHT UPPER EXTREMITY: Yes upper arm (No pain or tenderness), Yes elbow joint (No pain or tenderness) and Yes lower arm (Distal deformity and tenderness to palpation.) Neuro: SENSORIUM/ORIENTATION: Yes alert Skin: COMMON NORMALS: no wounds Course Vital Signs: Vital signs: Vital Signs Temperature 98.3 F 10/28/21 19:14 Pulse Rate 81 10/28/21 19:14 Respiratory Rate 16 10/28/21 19:14 Blood Pressure 132/68 10/28/21 19:14 Pulse Oximetry 92 10/28/21 19:14 MDM - Extremity Injury (Upper) Medical Decision Making 71-year-old female comes in today after slipping on some wet juju. Patient reports catching herself outstretched right arm. Patient has pain to the right wrist with mild deformity. Pulses and cap refill are intact. Tenderness is noted to palpation right wrist joint. Differential diagnosis includes dislocation, fracture, sprain. X-ray notes a fracture of the ulnar styloid and distal radius. Reviewed exam and x-rays with Dr. Moncada who recommended follow-up with orthopedist. Patient was placed in a sugar-tong splint and sling with need for follow-up. Family and patient both reported understanding. Lab Data Radiology Impressions Forearm X-Ray 10/28/21 19:16 IMPRESSION: 1. Distal radius impacted Colles fracture with articular involvement at the radiocarpal joint. 2. Ulnar styloid process mildly displaced fracture. 3. Soft tissue swelling about the wrist. Wrist X-Ray 10/28/21 19:16 IMPRESSION: 1. Distal radius impacted Colles fracture with articular involvement at the radiocarpal joint. 2. Ulnar styloid process mildly displaced fracture. 3. Soft tissue swelling about the wrist. Discharge Plan Discharge Patient Disposition: Home Clinical Impression: Closed fracture distal radius and ulna Qualifiers: Encounter type: initial encounter Laterality: right Qualified Code(s): S52.501A - Unspecified fracture of the lower end of right radius, initial encounter for closed fracture Condition: Stable Prescriptions: New hydrocodone-acetaminophen 5-325 mg tablet 1 tab PO Q6H PRN (Reason: pain) Qty: 14 0RF No Action (DME) ostomy wipes See Rx Instructions .Route .MEDSUPPLY Qty: 100 0RF Rx Instructions: As directed (DME) [facility] Joint Brace See Rx Instructions .ROUTE .MEDSUPPLY Qty: 1 0RF Rx Instructions: As directed acetaminophen [Tylenol Extra Strength] 500 mg Tablet 1,000 mg PO Q6H PRN (Reason: Pain) MAGNESIUM SULFATE 2 g IV .WEEKLY Rx Instructions: 2GM IVPB PRN WEEKLY IF MAGNESIUM LEVEL BELOW 1.8; pantoprazole 20 mg tablet,delayed release (DR/EC) 20 mg PO DAILY promethazine 25 mg tablet 25 mg PO TID PRN (Reason: Nausea) aspirin 81 mg Tablet,Delayed Release (Dr/Ec) 81 mg PO BID atorvastatin 20 mg tablet 20 mg PO BEDTIME Qty: 30 0RF gabapentin 400 mg Capsule 800 mg PO TID Qty: 90 0RF tramadol 50 mg tablet 50 mg PO Q6H PRN (Reason: pain) Qty: 28 0RF warfarin 1 mg tablet 1 mg PO DAILY Qty: 30 0RF Discharge Orders: Discharge ED (Routine); Ordered 10/28/21 Ordered By: Milo Gonzales Referrals: Tracy Jiang DO [Primary Care Provider] - Discharge Diet: Usual diet Discharge Activity: Increase activity as tolerated Patient Instructions: Wrist Fracture in Adults (ED), Opioid Safety Activity Restrictions/Additional Instructions: Keep splint clean and dry. Use sling for comfort. Case management will contact you regarding follow-up appointment for further evaluation and care. Return to ER for new concerns. Coding Level of Care Code ED Wallpaper Remover Steam for Chg Fwd Exam Comprehensive Documented by User: Buzz Moncada MD 10/28/21 20:24 HPI - Extremity Injury (Upper) General: Chief Complaint: Extremity Injury, Upper Stated Complaint: BROKEN RIGHT ARM Time Seen by Provider: 10/28/21 19:13 [facility] ED PFSH: Medical History Atrial fibrillation not chronic Autonomic neuropathy BMI less than 19,adult Chronic anemia mixed B12 and iron deficiency 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 Baseline creatinine in 2020 records here 2.0-4.0. Has required hemodialysis in past during times of acute illness. Follows with Dr Benz. Creatinine has been as high as 17 in setting of severe pre-renal azotemia. COVID-19 (~10/2019) Crohn's disease s/p total colectomy (1980) with ileostomy (2002) History of MRSA infection History of pelvic fracture Hyperaldosteronism At at least one point in time felt secondary to aldactone rather than primary Hyperlipidemia Hypersomnia Hypertrophy of bone of hand Hypokalemia chronically on IV infusions of potassium and magnesium Hypomagnesemia chronic Local infection due to Port-A-Cath (~2019) Myocardial infarction (lateral wall) Appears to have been identified during a prolonged hospital stay and possibly type II process. Had not required cardiac intervention. Osteoarthritis Osteoporosis Peripheral neuropathy Raynauds syndrome Severe protein-calorie malnutrition Short gut syndrome Stage III pressure ulcer Systolic congestive heart failure Diagnosed in 04/2019 at [facility] (Former[facility]) during a time of prolonged hospital care. Multiple echocardiograms show preserved EF 50-60% since that time. Appears to have been a transient issue related to acute medical issues at that time. Ventricular tachycardia (paroxysmal) related to electrolyte abnormalities Vitamin B12 deficiency Surgical History H/O ileostomy (~2002) H/O total colectomy (~2002) History of arthrodesis (08/03/18) right index finger History of delivery x4 History of hernia repair History of right hip replacement (~08/2019) History of tubal ligation Hx of appendectomy Port-A-Cath in place (10/12/19) right IJ Status post open reduction and internal fixation (ORIF) of fracture (12/22/19) left radius, Irina Status post open reduction and internal fixation (ORIF) of fracture (11/2019) right humerus, Irina Status post open reduction and internal fixation (ORIF) of fracture right hip Family History Other CAD (coronary artery disease) Cancer Congestive heart failure Diabetes Hyperlipidemia Social History Smoking and tobacco status: never smoked Second hand smoke exposure: No Alcohol intake: never Current occupational status: retired Course Vital Signs: Vital signs: Vital Signs Temperature 98.3 F 10/28/21 19:14 Pulse Rate 81 10/28/21 19:14 Respiratory Rate 16 10/28/21 19:14 Blood Pressure 132/68 10/28/21 19:14 Pulse Oximetry 92 10/28/21 19:14 MDM - Extremity Injury (Upper) Medical Decision Making 71-year-old female comes in today after slipping on some wet juju. Patient reports catching herself outstretched right arm. Patient has pain to the right wrist with mild deformity. Pulses and cap refill are intact. Tenderness is noted to palpation right wrist joint. Differential diagnosis includes dislocation, fracture, sprain. X-ray notes a fracture of the ulnar styloid and distal radius. Reviewed exam and x-rays with Dr. Moncada who recommended follow-up with orthopedist. Patient was placed in a sugar-tong splint and sling with need for follow-up. Family and patient both reported understanding. Reviewed x-rays spoke about case with midlevel do not recommend any reduction we will place in a splint and have follow-up with orthopedics. Lab Data Radiology Impressions Forearm X-Ray 10/28/21 19:16 IMPRESSION: 1. Distal radius impacted Colles fracture with articular involvement at the radiocarpal joint. 2. Ulnar styloid process mildly displaced fracture. 3. Soft tissue swelling about the wrist. Wrist X-Ray 10/28/21 19:16 IMPRESSION: 1. Distal radius impacted Colles fracture with articular involvement at the radiocarpal joint. 2. Ulnar styloid process mildly displaced fracture. 3. Soft tissue swelling about the wrist. Discharge Plan Discharge Patient Disposition: Home Clinical Impression: Closed fracture distal radius and ulna Qualifiers: Encounter type: initial encounter Laterality: right Qualified Code(s): S52.501A - Unspecified fracture of the lower end of right radius, initial encounter for closed fracture Condition: Stable Prescriptions: New hydrocodone-acetaminophen 5-325 mg tablet 1 tab PO Q6H PRN (Reason: pain) Qty: 14 0RF No Action (DME) ostomy wipes See Rx Instructions .Route .MEDSUPPLY Qty: 100 0RF Rx Instructions: As directed (DME) [facility] Joint Brace See Rx Instructions .ROUTE .MEDSUPPLY Qty: 1 0RF Rx Instructions: As directed acetaminophen [Tylenol Extra Strength] 500 mg Tablet 1,000 mg PO Q6H PRN (Reason: Pain) MAGNESIUM SULFATE 2 g IV .WEEKLY Rx Instructions: 2GM IVPB PRN WEEKLY IF MAGNESIUM LEVEL BELOW 1.8; pantoprazole 20 mg tablet,delayed release (DR/EC) 20 mg PO DAILY promethazine 25 mg tablet 25 mg PO TID PRN (Reason: Nausea) aspirin 81 mg Tablet,Delayed Release (Dr/Ec) 81 mg PO BID atorvastatin 20 mg tablet 20 mg PO BEDTIME Qty: 30 0RF gabapentin 400 mg Capsule 800 mg PO TID Qty: 90 0RF tramadol 50 mg tablet 50 mg PO Q6H PRN (Reason: pain) Qty: 28 0RF warfarin 1 mg tablet 1 mg PO DAILY Qty: 30 0RF Discharge Orders: Discharge ED (Routine); Ordered 10/28/21 Ordered By: Milo Gonzales Referrals: Tracy Jiang DO [Primary Care Provider] - Discharge Diet: Usual diet Discharge Activity: Increase activity as tolerated Patient Instructions: Wrist Fracture in Adults (ED), Opioid Safety Activity Restrictions/Additional Instructions: Keep splint clean and dry. Use sling for comfort. Case management will contact you regarding follow-up appointment for further evaluation and care. Return to ER for new concerns. Coding Level of Care Code ED Wallpaper Remover Steam for Rudolph Fwd Exam Comprehensive
[2021-10-28 19:14] VITALS: BP 132/68; PULSE 81; RESP 16; TEMP 36.8; O2SAT 92
--- NOTE | 2021-10-28 19:16 | XRR_ITS ---
PROCEDURE INFORMATION: Exam: XR Right Wrist Exam date and time: 10/28/2021 7:36 PM Age: 71 years old Clinical indication: Injury or trauma; Fall; Blunt trauma (contusions or hematomas); Arm, upper; Right; Additional info: Fall injury TECHNIQUE: Imaging protocol: Radiologic exam of the Right wrist. Views: 3 or more views. COMPARISON: CR (UP EXM, ) 10/28/2021 7:29 PM FINDINGS: Bones/joints: Distal radius impacted Colles fracture with articular involvement at the radiocarpal joint. Ulnar styloid process mildly displaced fracture. Soft tissues: Soft tissue swelling about the wrist. XR/XR wrist RT min 3V* [id number] IMPRESSION: 1. Distal radius impacted Colles fracture with articular involvement at the radiocarpal joint. 2. Ulnar styloid process mildly displaced fracture. 3. Soft tissue swelling about the wrist.
--- NOTE | 2021-10-28 19:16 | XRR_ITS ---
PROCEDURE INFORMATION: Exam: XR Right Forearm Exam date and time: 10/28/2021 7:29 PM Age: 71 years old Clinical indication: Injury or trauma; Fall; Blunt trauma (contusions or hematomas); Wrist; Right; Injury details: PT xray done in pa position due to severe pain; Additional info: Fall injury TECHNIQUE: Imaging protocol: Radiologic exam of the Right forearm. Views: 2 views. COMPARISON: CR XR hand RT min 3V* [id number] 09/19/2021 1:38 PM FINDINGS: Bones/joints: Distal radius impacted Colles fracture with articular involvement at the radiocarpal joint. Ulnar styloid process mildly displaced fracture. Soft tissues: Soft tissue swelling about the wrist. XR/XR forearm RT 2V [id number] IMPRESSION: 1. Distal radius impacted Colles fracture with articular involvement at the radiocarpal joint. 2. Ulnar styloid process mildly displaced fracture. 3. Soft tissue swelling about the wrist.
[2021-10-28] MEDS: HYDROcodone-acetaminophen 7.5-325 mg Tablet 1 TAB PO (20:38)
--- NOTE | 2021-10-28 21:07 | PC.NURSE ---
sugar tong splint applied to right forearm.
[2021-10-28 21:09] VITALS: BP 107/59; PULSE 82; RESP 18; O2SAT 98
--- NOTE | 2021-10-29 10:35 | DCPLANNER ---
Addendum entered by Jody Sierra 11/07/21 09:19: Patient had follow up with ortho - patient did attend appointment. Addendum entered by Jody Sierra 10/30/21 14:07: Patient has a follow up appointment scheduled for Monday, November 01, 2021 at 8:[address] Arevalo at ortho. Clinic will call patient with appointment information. Original Note: lab manager had message to schedule a follow up appointment for patient with ortho. lab manager sent patients information to the front office staff at ortho. Patients information will be printed and reviewed. Clinic will call patient with appointment information.
== END 2021-10-28 20:55 | disposition home or self-care (01) ==
PROVIDERS: Emergency Provider Nurse Practitioner Family; PCP Family Medicine
DX: S52.531A Colles' fracture of right radius, initial encounter for closed fracture (principal); S52.611A Displaced fracture of right ulna styloid process, initial encounter for closed fracture; Z79.82 Long term (current) use of aspirin; Z79.01 Long term (current) use of anticoagulants; N18.31 Chronic kidney disease, stage 3a; E78.5 Hyperlipidemia, unspecified; I25.2 Old myocardial infarction; W01.0XXA Fall on same level from slipping, tripping and stumbling without subsequent striking against object, initial encounter
CPT/HCPCS: 29125; 73090; 73110; 99283

== ENCOUNTER 2021-10-31 08:17 | Outpatient (RCR) | payer MEDICARE, SELFPAY ==
[2021-10-31] MEDS: sodium chloride 0.9% 1,000 ML 999 ML IV (08:38)
[2021-10-31] MEDS: potassium chloride premix 100 ML 37 MEQ IV (08:47)
[2021-10-31 08:48] VITALS: BP 113/68; PULSE 69; RESP 18; TEMP 37.1; O2SAT 94
[2021-10-31 09:10] LABS: INR 1.13 (0.8-1.2)
[2021-10-31 09:57] LABS: Anion Gap 14.7 (5-19); Blood Urea Nitrogen 42 mg/dL (8-23); Calcium 9.4 mg/dL (8.5-10.5); Carbon Dioxide 37 mmol/L (22-29); Chloride 83 mmol/L (98-107); Glucose 95 mg/dL (65-115); Magnesium 1.4 mg/dL (1.7-2.3); Osmolality Calculated 284 mOsm/kg (285-295); Sodium 132 mmol/L (136-145)
[2021-10-31 09:59] LABS: Potassium 2.7 mmol/L (3.5-5.1)
[2021-10-31] MEDS: magnesium sulfate premix 2 GM/50 ML PIGGYBACK IV (10:31)
--- NOTE | 2021-10-31 10:45 | PC.NURSE ---
Potassium 2.7 and Mg 1.4. Pt received KCl 40 meq IVPB, Mg Sulfate 2 gm IVPB, and NS 1L as ordered. Lab results faxed to [facility].
== END 2021-11-05 06:59 | disposition home or self-care (01) ==
LOC: GILAB 08:17
PROVIDERS: PCP Family Medicine; Visit Provider Registered Nurse
DX: N18.4 Chronic kidney disease, stage 4 (severe) (principal); D50.9 Iron deficiency anemia, unspecified
CPT/HCPCS: 36415; 36591; 80048; 83735; 85610; 96360; 96365; 96366; 96367; J3475; J3480; J7030

== ENCOUNTER → 2021-11-01 08:22 | Outpatient (BNVA) | payer MEDICARE, SELFPAY | PROVIDERS: PCP Family Medicine; Referring Provider Nurse Practitioner Family; Visit Provider Student in an Organized Health Care Education/Training Program | DX: S52.501A Unspecified fracture of the lower end of right radius, initial encounter for closed fracture (principal); W01.0XXA Fall on same level from slipping, tripping and stumbling without subsequent striking against object, initial encounter | CPT/HCPCS: 99204 ==

== ENCOUNTER 2021-11-06 07:44 | Day surgery (SDC) | payer MEDICARE, SELFPAY ==
[2021-11-06] VITALS (14 sets, daily range): BP systolic 91–141; BP diastolic 44–78; PULSE 68–88; RESP 13–24; TEMP 36.1–36.7; O2SAT 89–100
--- NOTE | 2021-11-06 | SCC_ITS ---
Procedure done: Right distal radius open reduction internal fixation 96 seconds of fluoroscopic guidance, for a cumulative dose of 1.790 mGy, was provided to Dr. Bernard by the radiology department. C-arm images of the RIGHT wrist were saved for the patient's permanent record. [facility] HOSPITALBerenice
--- NOTE | 2021-11-06 | XR_ITS ---
WS: [id number] INTRAOPERATIVE TECHNIQUE: 3 Spot fluoroscopic images for intraoperative purposes. FLUOROSCOPY TIME: 1 minute 36 seconds CLINICAL INFORMATION: distal radius open reduction internal fixation COMPARISON: October 28, 2021 FINDINGS: Soft tissue edema. Avulsion fracture ulnar styloid. Plate and screw fixation distal radius. Improved anatomic alignment of the distal radial fracture. Hardware appears in good position. XR/XR wrist RT 2V [id number] IMPRESSION: Images obtained for intraoperative purposes.
--- NOTE | 2021-11-06 08:21 | P.ANESASSM_ITS ---
Pre-Anesthetic Assessment Height/Weight: Height 1.57 m Weight 33.566 kg Temp Pulse Resp BP Pulse Ox O2 Del Method 98.0 F 68 16 91/68 97 11/06/21 08:11 11/06/21 08:11 11/06/21 08:11 11/06/21 08:11 11/06/21 08:11 11/06/21 08:11 Preop Diagnosis: Right intra-articular displaced distal radius fracture Operation Date: 11/06/21 09:10 Proposed Procedures p RIGHT DISTAL RADIUS OPEN REDUCTION AND INTERNAL FIXATION,S52.5(Right) - [employer], DO Familial anesthetic complications: none Was Beta Hali taken within 24 hours: N/A Was Clonidine taken within 24 hours: N/A Social No alcohol and No tobacco Airway Submandibular: within normal limits Cervical ROM: within normal limits Mallampati: Class II Dentition: false CV/HEM Anemia (Chronic), Arrythmia and Congestive Heart Failure Chronic Renal Insufficiency On and off dialysis, chronic hypokalemia-transfused K+ regularly GI ileostomy (Crohn's) Metabolic Hyperlipidemia Anesthetic Plan ASA status: 3 Anesthesia: General Medications/Allergies Home Medications Medication Instructions Recorded Confirmed Last Taken Type acetaminophen 500 mg tablet 1,000 mg PO Q6H PRN Pain 04/30/20 11/05/21 10/09/21 History (Tylenol Extra Strength) [facility] Joint Brace #1 ea 05/08/20 11/01/21 10/09/21 Rx ostomy wipes #100 ea 10/25/20 11/01/21 10/09/21 Rx aspirin 81 mg tablet,delayed 81 mg PO BID 08/16/21 11/05/21 10/09/21 History release atorvastatin 20 mg tablet 20 mg PO BEDTIME #30 tabs 08/24/21 11/05/21 10/09/21 Rx gabapentin 400 mg capsule 800 mg PO TID #90 caps 08/24/21 11/05/21 10/09/21 Rx tramadol 50 mg tablet 50 mg PO Q6H PRN pain #28 tabs 08/24/21 11/05/21 10/09/21 Rx warfarin 1 mg tablet 1 mg PO DAILY #30 tabs 08/24/21 11/05/21 10/29/21 Rx hydrocodone 5 mg-acetaminophen 325 1 tab PO Q6H PRN pain #14 tabs 10/28/21 11/05/21 Unknown Rx mg tablet pantoprazole 20 mg tablet,delayed 20 mg PO DAILY 10/28/21 11/05/21 Unknown History release promethazine 25 mg tablet 25 mg PO TID PRN Nausea 10/28/21 11/05/21 Unknown History Allergies Allergy/AdvReac Type Severity Reaction Status Date / Time amoxicillin Allergy ALGY-Hives Verified 11/01/21 08:26 cefazolin [From Ancef] Allergy ALGY-Rash Verified 11/01/21 08:26 cephalexin [From Keflex] Allergy ALGY-Rash Verified 11/01/21 08:26 codeine Allergy ALGY-Hives Verified 11/01/21 08:26 doxycycline Allergy ALGY-Hives Verified 11/01/21 08:26 erythromycin base Allergy ALGY-Hives Verified 11/01/21 08:26 [From E.E.S.] latex Allergy Unknown Verified 11/01/21 08:26 metoclopramide Allergy Unknown Verified 11/01/21 08:26 neomycin Allergy ALGY-Hives Verified 11/01/21 08:26 Penicillins Allergy ALGY-Hives Verified 11/01/21 08:26 polyethylene glycol Allergy ADR-Swelling Verified 11/01/21 08:26 of the Eye pregabalin [From Lyrica] Allergy ALGY-Swell Verified 11/01/21 08:26 Lip/Tongue/Throat prochlorperazine Allergy ALGY-Hives Verified 11/01/21 08:26 [From Compazine] propoxyphene [From Darvon] Allergy ALGY-Hives Verified 11/01/21 08:26 sapropterin Allergy ADR-Swelling Verified 11/01/21 08:26 [From Tetrahydrobiopterin of the Eye Di-HCL] scopolamine Allergy ALGY-Hives Verified 11/01/21 08:26 Sulfa (Sulfonamide Allergy ALGY-Hives Verified 11/01/21 08:26 Antibiotics) tegaserod [From Zelnorm] Allergy ALGY-Hives Verified 11/01/21 08:26 tetracycline Allergy ALGY-Hives Verified 11/01/21 08:26 tetrahydrozoline Allergy ADR-Swelling Verified 11/01/21 08:26 [From Visine] of the Eye [facility] Anesthesia Medical History (Updated 11/04/21 @ 08:43 by Arben Bernard DO) Atrial fibrillation not chronic Autonomic neuropathy BMI less than 19,adult Chronic anemia mixed B12 and iron deficiency 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 Baseline creatinine in 2020 records here 2.0-4.0. Has required hemodialysis in past during times of acute illness. Follows with Dr Benz. Creatinine has been as high as 17 in setting of severe pre-renal azotemia. COVID-19 (~10/2019) Crohn's disease s/p total colectomy (1980) with ileostomy (2002) Distal radius fracture, right History of MRSA infection History of pelvic fracture Hyperaldosteronism At at least one point in time felt secondary to aldactone rather than primary Hyperlipidemia Hypersomnia Hypertrophy of bone of hand Hypokalemia chronically on IV infusions of potassium and magnesium Hypomagnesemia chronic Local infection due to Port-A-Cath (~2019) Myocardial infarction (lateral wall) Appears to have been identified during a prolonged hospital stay and possibly type II process. Had not required cardiac intervention. Osteoarthritis Osteoporosis Peripheral neuropathy Raynauds syndrome Severe protein-calorie malnutrition Short gut syndrome Stage III pressure ulcer Systolic congestive heart failure Diagnosed in 04/2019 at [facility] during a time of prolonged hospital care. Multiple echocardiograms show preserved EF 50-60% since that time. Appears to have been a transient issue related to acute medical issues at that time. Ventricular tachycardia (paroxysmal) related to electrolyte abnormalities Vitamin B12 deficiency Surgical History H/O ileostomy (~2002) H/O total colectomy (~2002) History of arthrodesis (08/03/18) right index finger History of delivery x4 History of hernia repair History of right hip replacement (~08/2019) History of tubal ligation Hx of appendectomy Port-A-Cath in place (10/12/19) right IJ Status post open reduction and internal fixation (ORIF) of fracture (12/22/19) left radius, Irina Status post open reduction and internal fixation (ORIF) of fracture (11/2019) right humerus, Irina Status post open reduction and internal fixation (ORIF) of fracture right hip Family History Other CAD (coronary artery disease) Cancer Congestive heart failure Diabetes Hyperlipidemia Social History Smoking and tobacco status: never smoked Second hand smoke exposure: No Alcohol intake: never Current occupational status: retired Data Anesthesia Cardiac Studies: Echocardiogram Limited Views 11/23/19 Echocardiogram Ultrasound 05/01/20
--- NOTE | 2021-11-06 08:55 | P.HP_ITS ---
Same Day Surgery H&P Indication for Procedure/HPI DATE OF PROCEDURE: November 06, 2021 CHIEF COMPLAINT/INDICATIONFOR SURGICAL PROCEDURE: Right intra-articular displaced distal radius fracture PREOP DIAGNOSIS: Right intra-articular displaced distal radius fracture PLANNED PROCEDURE: Operation Date: 11/06/21 09:10 Proposed Procedures p RIGHT DISTAL RADIUS OPEN REDUCTION AND INTERNAL FIXATION,S52.5(Right) - Arben Wagoner, DO Medications/Allergies* Home Medications Medication Instructions Recorded Confirmed Type acetaminophen 500 mg tablet 1,000 mg PO Q6H PRN Pain 04/30/20 11/06/21 History (Tylenol Extra Strength) aspirin 81 mg tablet,delayed 81 mg PO BID 08/16/21 11/06/21 History release pantoprazole 20 mg tablet,delayed 20 mg PO DAILY 10/28/21 11/06/21 History release promethazine 25 mg tablet 25 mg PO TID PRN Nausea 10/28/21 11/06/21 History Allergies/Adverse Reactions Allergy/AdvReac Type Severity Reaction Status Date / Time amoxicillin Allergy ALGY-Hives Verified 11/01/21 08:26 cefazolin [From Ancef] Allergy ALGY-Rash Verified 11/01/21 08:26 cephalexin [From Keflex] Allergy ALGY-Rash Verified 11/01/21 08:26 codeine Allergy ALGY-Hives Verified 11/01/21 08:26 doxycycline Allergy ALGY-Hives Verified 11/01/21 08:26 erythromycin base Allergy ALGY-Hives Verified 11/01/21 08:26 [From E.E.S.] latex Allergy Unknown Verified 11/01/21 08:26 metoclopramide Allergy Unknown Verified 11/01/21 08:26 neomycin Allergy ALGY-Hives Verified 11/01/21 08:26 Penicillins Allergy ALGY-Hives Verified 11/01/21 08:26 polyethylene glycol Allergy ADR-Swelling Verified 11/01/21 08:26 of the Eye pregabalin [From Lyrica] Allergy ALGY-Swell Verified 11/01/21 08:26 Lip/Tongue/Throat prochlorperazine Allergy ALGY-Hives Verified 11/01/21 08:26 [From Compazine] propoxyphene [From Darvon] Allergy ALGY-Hives Verified 11/01/21 08:26 sapropterin Allergy ADR-Swelling Verified 11/01/21 08:26 [From Tetrahydrobiopterin of the Eye Di-HCL] scopolamine Allergy ALGY-Hives Verified 11/01/21 08:26 Sulfa (Sulfonamide Allergy ALGY-Hives Verified 11/01/21 08:26 Antibiotics) tegaserod [From Zelnorm] Allergy ALGY-Hives Verified 11/01/21 08:26 tetracycline Allergy ALGY-Hives Verified 11/01/21 08:26 tetrahydrozoline Allergy ADR-Swelling Verified 11/01/21 08:26 [From Visine] of the Eye Pertinent History/Comorbid Conditions* Medical History (Updated 11/04/21 @ 08:43 by Arben Bernard DO) Atrial fibrillation not chronic Autonomic neuropathy BMI less than 19,adult Chronic anemia mixed B12 and iron deficiency 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 Baseline creatinine in 2020 records here 2.0-4.0. Has required hemodialysis in past during times of acute illness. Follows with Dr Benz. Creatinine has been as high as 17 in setting of severe pre-renal azotemia. COVID-19 (~10/2019) Crohn's disease s/p total colectomy (1980) with ileostomy (2002) Distal radius fracture, right History of MRSA infection History of pelvic fracture Hyperaldosteronism At at least one point in time felt secondary to aldactone rather than primary Hyperlipidemia Hypersomnia Hypertrophy of bone of hand Hypokalemia chronically on IV infusions of potassium and magnesium Hypomagnesemia chronic Local infection due to Port-A-Cath (~2019) Myocardial infarction (lateral wall) Appears to have been identified during a prolonged hospital stay and possibly type II process. Had not required cardiac intervention. Osteoarthritis Osteoporosis Peripheral neuropathy Raynauds syndrome Severe protein-calorie malnutrition Short gut syndrome Stage III pressure ulcer Systolic congestive heart failure Diagnosed in 04/[address] [facility] during a time of prolonged hospital care. Multiple echocardiograms show preserved EF 50-60% since that time. Appears to have been a transient issue related to acute medical issues at that time. Ventricular tachycardia (paroxysmal) related to electrolyte abnormalities Vitamin B12 deficiency Surgical History (Updated 08/16/21 @ 20:26 by Karin Kumar MD) H/O ileostomy (~2002) H/O total colectomy (~2002) History of arthrodesis (08/03/18) right index finger History of delivery x4 History of hernia repair History of right hip replacement (~08/2019) History of tubal ligation Hx of appendectomy Port-A-Cath in place (10/12/19) right IJ Status post open reduction and internal fixation (ORIF) of fracture (12/22/19) left radius, Irina Status post open reduction and internal fixation (ORIF) of fracture (11/2019) right humerus, Irina Status post open reduction and internal fixation (ORIF) of fracture right hip Family History (Updated 03/04/19 @ 10:15 by Zena Wild RN) Diabetes CAD (coronary artery disease) Congestive heart failure Hyperlipidemia Cancer Social History Smoking and tobacco status: never smoked Second hand smoke exposure: No Alcohol intake: never Current occupational status: retired Pertinent Exam Findings alert and oriented x 3 Patient alert and oriented this morning. Splint on in place to right upper extremity. Patient able to wiggle fingers pain at fracture site. Fingers are warm well perfused. Recommendations Surgery/Procedure today Other Plans: Plan for OR for open reduction internal fixation right distal radius fracture with volar plate Coding Level of Care Code Acute Wholesale Account Executive for Rudolph Miller
[2021-11-06] MEDS: sodium chloride 0.9% 1,000 ML 30 ML IV (08:58)
[2021-11-06] MEDS: acetaminophen 1,000 MG/100 ML PIGGYBACK 400 MG IV (08:59)
--- NOTE | 2021-11-06 09:17 | W.PM.OPSFHP ---
Same Day Surgery H&P Indication for Procedure/HPI DATE OF PROCEDURE: November 06, 2021 CHIEF COMPLAINT/INDICATIONFOR SURGICAL PROCEDURE: Right intra-articular displaced distal radius fracture PREOP DIAGNOSIS: Right intra-articular displaced distal radius fracture PLANNED PROCEDURE: Operation Date: 11/06/21 09:10 Proposed Procedures p RIGHT DISTAL RADIUS OPEN REDUCTION AND INTERNAL FIXATION,S52.5(Right) - Arben Marco Antonio, DO Medications/Allergies* Home Medications Medication Instructions Recorded Confirmed Type acetaminophen 500 mg tablet 1,000 mg PO Q6H PRN Pain 04/30/20 11/06/21 History (Tylenol Extra Strength) aspirin 81 mg tablet,delayed 81 mg PO BID 08/16/21 11/06/21 History release pantoprazole 20 mg tablet,delayed 20 mg PO DAILY 10/28/21 11/06/21 History release promethazine 25 mg tablet 25 mg PO TID PRN Nausea 10/28/21 11/06/21 History Allergies/Adverse Reactions Allergy/AdvReac Type Severity Reaction Status Date / Time amoxicillin Allergy ALGY-Hives Verified 11/01/21 08:26 cefazolin [From Ancef] Allergy ALGY-Rash Verified 11/01/21 08:26 cephalexin [From Keflex] Allergy ALGY-Rash Verified 11/01/21 08:26 codeine Allergy ALGY-Hives Verified 11/01/21 08:26 doxycycline Allergy ALGY-Hives Verified 11/01/21 08:26 erythromycin base Allergy ALGY-Hives Verified 11/01/21 08:26 [From E.E.S.] latex Allergy Unknown Verified 11/01/21 08:26 metoclopramide Allergy Unknown Verified 11/01/21 08:26 neomycin Allergy ALGY-Hives Verified 11/01/21 08:26 Penicillins Allergy ALGY-Hives Verified 11/01/21 08:26 polyethylene glycol Allergy ADR-Swelling Verified 11/01/21 08:26 of the Eye pregabalin [From Lyrica] Allergy ALGY-Swell Verified 11/01/21 08:26 Lip/Tongue/Throat prochlorperazine Allergy ALGY-Hives Verified 11/01/21 08:26 [From Compazine] propoxyphene [From Darvon] Allergy ALGY-Hives Verified 11/01/21 08:26 sapropterin Allergy ADR-Swelling Verified 11/01/21 08:26 [From Tetrahydrobiopterin of the Eye Di-HCL] scopolamine Allergy ALGY-Hives Verified 11/01/21 08:26 Sulfa (Sulfonamide Allergy ALGY-Hives Verified 11/01/21 08:26 Antibiotics) tegaserod [From Zelnorm] Allergy ALGY-Hives Verified 11/01/21 08:26 tetracycline Allergy ALGY-Hives Verified 11/01/21 08:26 tetrahydrozoline Allergy ADR-Swelling Verified 11/01/21 08:26 [From Visine] of the Eye Current Medications: Generic Name Dose Route Start Last Admin Trade Name Freq PRN Reason Stop Dose Admin Sodium Chloride 1,000 mls @ 30 mls/hr 11/06/21 08:15 11/06/21 08:58 Sodium Chloride 0.9% IV 11/07/21 08:14 30 mls/hr .Q24H SERENITY Administration Pertinent History/Comorbid Conditions* Medical History (Updated 11/04/21 @ 08:43 by Arben Bernard DO) Atrial fibrillation not chronic Autonomic neuropathy BMI less than 19,adult Chronic anemia mixed B12 and iron deficiency 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 Baseline creatinine in 2020 records here 2.0-4.0. Has required hemodialysis in past during times of acute illness. Follows with Dr Benz. Creatinine has been as high as 17 in setting of severe pre-renal azotemia. COVID-19 (~10/2019) Crohn's disease s/p total colectomy (1980) with ileostomy (2002) Distal radius fracture, right History of MRSA infection History of pelvic fracture Hyperaldosteronism At at least one point in time felt secondary to aldactone rather than primary Hyperlipidemia Hypersomnia Hypertrophy of bone of hand Hypokalemia chronically on IV infusions of potassium and magnesium Hypomagnesemia chronic Local infection due to Port-A-Cath (~2019) Myocardial infarction (lateral wall) Appears to have been identified during a prolonged hospital stay and possibly type II process. Had not required cardiac intervention. Osteoarthritis Osteoporosis Peripheral neuropathy Raynauds syndrome Severe protein-calorie malnutrition Short gut syndrome Stage III pressure ulcer Systolic congestive heart failure Diagnosed in 04/2019 at [facility] during a time of prolonged hospital care. Multiple echocardiograms show preserved EF 50-60% since that time. Appears to have been a transient issue related to acute medical issues at that time. Ventricular tachycardia (paroxysmal) related to electrolyte abnormalities Vitamin B12 deficiency Surgical History (Updated 08/16/21 @ 20:26 by Karin Kumar MD) H/O ileostomy (~2002) H/O total colectomy (~2002) History of arthrodesis (08/03/18) right index finger History of delivery x4 History of hernia repair History of right hip replacement (~08/2019) History of tubal ligation Hx of appendectomy Port-A-Cath in place (10/12/19) right IJ Status post open reduction and internal fixation (ORIF) of fracture (12/22/19) left radius, Irina Status post open reduction and internal fixation (ORIF) of fracture (11/2019) right humerus, Irina Status post open reduction and internal fixation (ORIF) of fracture right hip Family History (Updated 03/04/19 @ 10:15 by Zena Wild RN) Diabetes CAD (coronary artery disease) Congestive heart failure Hyperlipidemia Cancer Social History Smoking and tobacco status: never smoked Second hand smoke exposure: No Alcohol intake: never Current occupational status: retired Pertinent Exam Findings alert and operative site marked Volar splint on in place. Patient able to wiggle fingers, patient has sensation intact light touch to the radial/ulnar/median nerve distribution. Does complain of some pain at the PIP and DIP joint of the right middle finger with some decreased range of motion. Right hand warm well-perfused brisk capillary refill less than 2 seconds Recommendations Surgery/Procedure today Other Plans: Patient new complaint of right middle finger. I did bring in the mini C arm into the preoperative holding area to evaluate middle finger as initial x-rays only included rest. No significant clinical deformity was noted. Mini C arm images in multiple orthogonal views show no fracture or dislocation to the right hand on mini C arm particularly of the middle finger at the PIP or DIP joints. Suspect this is more related to swelling and stiffness. Patient was able to actively flex and extend. The standpoint this will be treated conservatively. We will proceed with right distal radius open reduction internal fixation with volar plate fixation. Consent was once again reviewed with patient and daughter at bedside. All risk benefits complication alternatives of surgery were discussed with patient. They understand agree to proceed with surgery. Coding Level of Care Code Acute Overhead Cleaner Maintainer for Rudolph Miller
[2021-11-06] MEDS: clindamycin 600 MG/50 ML PREMIX 100 MG IV (09:22)
[2021-11-06 11:04] LABS: Anion Gap 14.2 (5-19); Blood Urea Nitrogen 27 mg/dL (8-23); Calcium 9.1 mg/dL (8.5-10.5); Chloride 79 mmol/L (98-107); Glucose 101 mg/dL (65-115); Magnesium 1.3 mg/dL (1.7-2.3); Osmolality Calculated 279 mOsm/kg (285-295); Sodium 132 mmol/L (136-145)
[2021-11-06 11:08] LABS: Potassium 2.2 mmol/L (3.5-5.1)
[2021-11-06 11:11] LABS: Carbon Dioxide 41 mmol/L (22-29)
--- NOTE | 2021-11-06 11:52 | PC.NURSE ---
pt received interscalene block from anesthesia while in pacu
--- NOTE | 2021-11-06 13:43 | PM.OP2 ---
Brief Operative Note Date of procedure: 11/06/21 Pre-op diagnosis: right distal radius fracture with ulnar styloid facture Post-op diagnosis: same (Three-part intra-articular right distal radius fracture with ulnar styloid fracture) Procedure Done: Right distal radius open reduction internal fixation with volar plate fixation Surgeon: Arben Bernard Estimated blood loss (mL): 25 Complications: None Post-op Plan: Patient recover in PACU. Patient given appropriate discharge instructions as well as pain medication. Given appropriate instructions for dressing. She will follow-up in the office in 2 weeks. Patient understands agrees with current plan. All questions answered. She understands she has any questions she can contact the office. Condition: stable Disposition: same day Coding Level of Care Code Acute Digital Account Coordinator for Rudolph Miller
--- NOTE | 2021-11-06 13:51 | P.OP_ITS ---
Operative Report Date of procedure: November 06, 2021 Pre-op diagnosis: Preop Diagnosis right distal radius fracture with ulnar styloid fracture Post-op diagnosis: same (Three-part intra-articular right distal radius fracture with ulnar styloid fracture) Procedure done: Right distal radius open reduction internal fixation Intraoperative interpretation of mini C arm fluoroscopic imaging Implants: Narciso Variax volar distal radius plate combination of locking and nonlocking screws Surgeon: Arben Bernard DO Estimated blood loss (mL): 25 49 Complications: None Findings: See operative note Condition: stable Disposition: same day Brief History: Patient was seen and evaluated in the office after sustaining a ground-level fall having a right distal radius fracture with associated ulnar styloid fracture. She was seen in my office and please refer to my office note for specific details of our discussion. Patient presents today with plan for open reduction internal fixation right distal radius fracture. We had detailed discussion with her in the office about nonoperative and operative intervention. Ultimately given the dorsal angulation and comminution as well as through shared decision making as patient had initially tried to treat or left distal radius fracture nonoperatively and fell off ultimately requiring intervention she would like to get this fixed as soon as possible given her pain and d iscomfort. As result through shared decision-making she elected proceed with surgical intervention. Her risk include make it better make it worse, blood clot, heart attack, stroke, on the table, injury to nerves or vessels, infection, loss of function to the wrist and hand. With these understandings of her risks she agrees to proceed with surgical intervention. She was seen and evaluated in the preoperative holding area with her daughter at bedside. Was stating that she was having some pain in her middle finger. At this point she had only had wrist images done I did bring in the mini C arm to evaluate just in case there was any need for intervention. Her fingers had no clinical deformity. We took multiple fluoroscopic mini C arm images which showed no fracture or dislocation throughout the rest of the hand. Just significant arthritis of the PIP and DIP joints. The standpoint I expressed to patient as well as the daughter no surgical intervention would be required. We will plan on proceeding with a right distal radius open reduction internal fixation. Patient agrees to proceed with surgery. All questions answered. Procedure: Preoperative holding area. Consent was obtained in office but was reviewed in the preop area. The correct extremity was marked. She was in a splint to the right wrist. She was then seen evaluated by anesthesia department. Once cleared for surgery she was then taken back to the operative suite on a gurney and transported to the hospital OR table. All bony prominences were well-padde d. She was secured to the table. Right arm placed on an armboard. Patient underwent anesthesia per the anesthesia department. Nonsterile tourniquet applied to the right upper extremity. Patient received appropriate preoperative antibiotics. Right upper extremity was then prepped and draped in standard orthopedic fashion. Final timeout performed. Esmarch tourniquet was used exsanguinate the extremity and tourniquet was inflated to 250 mmHg. Standard volar FCR approach was then used sharp scalpel excision through skin directly over to the FCR tendon sheath. The sheath was incised both proximally and distally and mobilized ulnarly and the floor was incised with Littler dissection scissors care to just incise the floor. Blunt dissection was then utilized sweeping the FPL tendon as well as the FCR ulnarly and care was made to protect the radial artery and nerve throughout this case. Blunt Wheaties was then placed deep in the pronator quadratus was evaluated in standard release and a 7 configuration was scraped distally. Initially found fracture site. At this point I left brachial radialis alone as I thought this would be able to be reduced without any release. Fracture was identified we had appropriate distal and proximal dissection. This point identified the fracture is a three-part intra-articular distal radius fracture. Utilized a freer which was introduced to the fracture site and help this lever over and performed a manual reduction of the distal radius. Once satisfied with my reduction utilizing mini C arm and multiple fluoroscopy scopic images I then selected a Heber narrow 4-hole volar distal radius plate. I added an extra hole given patient's soft bone and osteoporosis in hopes to add an additional locking fixation. While maintaining reduction I then utilized K wires to hold the plate in place. This point I noticed patient had reduction in the sagittal plane with volar tilt however there was still noticeable translation of the distal fracture of the radius. The standpoint at was apparent to me that the brachial radialis was my main deforming force and inhibiting my reduction. As result I then further my dissection over the radial column. Identified the brachial radialis as well as the superficial radial artery and then the first dorsal compartment. First dorsal compartment as well as neurovascular structure was protected and I released the brachial radialis. This allowed for appropriate translation to obtain anatomic reduction distal radius fracture. The plate was then placed back on pinned in appropriate place and with multiple orthogonal images I was satisfied with my plate placement in both planes as well as my reduction. I started with a screw in the oblong hole just to allow if I needed to make small adjustments with my plate both distally or proximally. Next I then utilized the locking guide and drilled my center distal locking screw. This was fully threaded and I intentionally selected a longer screw to allow for appropriate compression of the plate to the distal fragment. Once this was done and I confirmed in multiple orthogonal images that this was appropriate I then drilled and placed 2 locking screws around this screw and the screw was subsequently backed out in appropriate length fully threaded locking screw was placed. This completed my distal fixation which was confirmed on multiple orthogonal images to be appropriate position subchondral without intra-articular penetration and good spread. Next I then drilled and placed a bicortical screw at my most proximal aspect of the plate to decrease a high stress riser as a locking screw in this region. Next I then drilled and measured and placed 2 locking screws additionally to my proximal fixation. I then at this point time attention turned towards the oblong cortical screw which brought the plate to bone given her soft bone quality this appeared to strip and had no fixation which was subsequently removed. At this time patient had 3 screws into the distal fracture fragment along the distal row as well as 3 screws proximally. This point was satisfied with my fixation. I did consider placing some's further screws distal however given the distal extent of the fracture my second role in the plate would be intra-articular and as a result this was left alone. Patient's wrist was taken through range of motion with no clicking or catching nice smooth range of motion radial and ulnar. DRUJ joint was then stressed. And was stable. I then took final images which confirmed anatomic reduction distal radius fracture with excellent fixation with no intra-articular screw penetrance and appropriate length screws dorsally. Patient's tourniquet was then deflated. Wound bed was thoroughly irrigated. Hemostasis was adequate with electrocautery as well as manual pressure. I then laid the pronator quadratus over the plate and given patient's thin tissue her skin was closed with running nylon suture. Local injection was then placed around the incision to help with pain ejection was a combination of 2% lidocaine and ropivacaine. Xeroform dressing was then applied with 4 x 4's Curlex and a volar prefab splint. Patient was then awakened from anesthesia and taken to PACU in stable condition. Disposition: Patient given appropriate discharge instructions directions as well as pain medication. She will follow-up with me in office in 2 weeks. Nonweightbearing right upper extremity. Maintain splint until follow-up If patient has any questions she can contact the office. Patient understands agrees with current p selena. All questions answered.
--- NOTE | 2021-11-06 14:43 | ANES.PROC ---
Anesthesia Procedures Procedure/Date: 11/06/21 Nerve Block ^: Nerve Block 1: Main Anesthesia: general anesthesia Time Out Performed: Yes Consent: from patient, risks and benefits reviewed and patient agrees to proceed Nerve block location: interscalene (right) Anesthesia monitors applied: pulse oximetry, EKG, BP cuff and oxygen Nerve block position: semi sitting Anesthetic Used: ropivicaine 0.5% Amount of anesthesia used (mL): 15 Ultrasound used to: recognize landmarks and visualize and ID brachial plexus Nerve Stimulator Used?: No Interscalene/Femoral BLK: 2 stimuplex 22 g needle used for position and inplane approach Injection: neg aspiration of heme Patient Tolerated Procedure: well Complications: none
--- NOTE | 2021-11-06 14:44 | ANE.PACU2 ---
Inpatient post-anesthesia follow up: Airway intact: Yes Vital signs: Temperature 97.8 F Pulse Rate 88 Respiratory Rate 16 Blood Pressure 134/61 Pulse Oximetry 93 Oxygen Delivery Me thod Room Air Oxygen Flow Rate 2 Fraction of Inspir ed Oxygen Hydration adequate: Yes Nausea and vomiting: No Pain level: 1 Mental status: Baseline
== END 2021-11-06 13:20 | disposition home or self-care (01) ==
PROVIDERS: PCP Family Medicine; Visit Provider Student in an Organized Health Care Education/Training Program
PROC: (CPT 25609; principal; 2021-11-06 09:00)
DX: S52.571A Other intraarticular fracture of lower end of right radius, initial encounter for closed fracture (principal); S52.611A Displaced fracture of right ulna styloid process, initial encounter for closed fracture; I50.9 Heart failure, unspecified; N18.9 Chronic kidney disease, unspecified; D64.9 Anemia, unspecified; E87.6 Hypokalemia; E78.5 Hyperlipidemia, unspecified; Z79.82 Long term (current) use of aspirin; Z86.16 Personal history of COVID-19; Z86.14 Personal history of Methicillin resistant Staphylococcus aureus infection; Z88.0 Allergy status to penicillin; Z88.5 Allergy status to narcotic agent; Z88.2 Allergy status to sulfonamides; Z88.1 Allergy status to other antibiotic agents; X58.XXXA Exposure to other specified factors, initial encounter
CPT/HCPCS: 25609; 25652; 36415; 73100; 76000; 80048; 83735; C1713; J0330; J1100; J2370; J2405; J2704; J2710; J2795; J3010; J3490; J7030

== ENCOUNTER 2021-11-26 08:16 | Outpatient (RCR) | payer MEDICARE, SELFPAY ==
[2021-11-07] MEDS: sodium chloride 0.9% 1,000 ML 999 ML IV (08:58)
[2021-11-07 08:59] VITALS: BP 109/54; PULSE 79; RESP 18; TEMP 36.7; O2SAT 100
[2021-11-07] MEDS: potassium chloride premix 100 ML 37 MEQ IV (08:59)
[2021-11-07] MEDS: magnesium sulfate premix 2 GM/50 ML PIGGYBACK IV (09:48)
[2021-11-14] MEDS: potassium chloride premix 100 ML 37 MEQ IV (07:47)
[2021-11-14] MEDS: sodium chloride 0.9% 1,000 ML 999 ML IV (07:48)
[2021-11-14 07:51] VITALS: BP 100/68; PULSE 114; RESP 18; TEMP 37.1; O2SAT 97
[2021-11-14 08:22] LABS: Anion Gap 13.8 (5-19); Blood Urea Nitrogen 43 mg/dL (8-23); Calcium 9.2 mg/dL (8.5-10.5); Carbon Dioxide 37 mmol/L (22-29); Chloride 90 mmol/L (98-107); Glucose 71 mg/dL (65-115); Magnesium 1.2 mg/dL (1.7-2.3); Osmolality Calculated 293 mOsm/kg (285-295); Potassium 3.8 mmol/L (3.5-5.1); Sodium 137 mmol/L (136-145)
[2021-11-14] MEDS: magnesium sulfate premix 2 GM/50 ML PIGGYBACK IV (08:50)
--- NOTE | 2021-11-14 09:30 | PC.NURSE ---
Potassium level back and noted at 3.8. Potassium infusion stopped. Total of 20 meQ IVPB given. NS 1000 mL bolus completed. Magnesium 2 gm infusing without difficulty.
--- NOTE | 2021-11-14 10:17 | PC.NURSE ---
Vale Garrett LPN at [facility] notified of pt lab results and that pt received 20 mEq of KCL. Vale to pass info on to Morenita Buckley.
[2021-11-21] MEDS: sodium chloride 0.9% 1,000 ML 999 ML IV (08:23)
[2021-11-21] MEDS: potassium chloride premix 100 ML 37 MEQ IV (08:24)
[2021-11-21 08:28] VITALS: BP 106/63; PULSE 104; RESP 18; TEMP 37.3; O2SAT 96
[2021-11-21 09:01] LABS: Anion Gap 14.2 (5-19); Blood Urea Nitrogen 18 mg/dL (8-23); Calcium 8.2 mg/dL (8.5-10.5); Carbon Dioxide 32 mmol/L (22-29); Chloride 98 mmol/L (98-107); Glucose 95 mg/dL (65-115); Osmolality Calculated 294 mOsm/kg (285-295); Potassium 3.2 mmol/L (3.5-5.1); Sodium 141 mmol/L (136-145)
[2021-11-21] MEDS: magnesium sulfate premix 2 GM/50 ML PIGGYBACK IV (09:23)
[2021-11-26 08:20] VITALS: BP 124/60; PULSE 103; RESP 18; TEMP 37; O2SAT 99
[2021-11-26] MEDS: potassium chloride premix 100 ML 25 MEQ IV (08:32)
--- NOTE | 2021-11-26 08:33 | PC.NURSE ---
Pt states after infusion on last week she became very swollen in her face and arms. Pt states she saw Dr. Benz in [place] yesterday and there is some concern that port may be in too small a vessel, causing fluid to be retained. Pt states she does not want hydration today due to problems with retaining fluid. Saline bolus held per pt request.
[2021-11-26 08:56] LABS: INR 1.18 (0.8-1.2)
[2021-11-26 09:03] LABS: Anion Gap 10.9 (5-19); Blood Urea Nitrogen 16 mg/dL (8-23); Calcium 8.4 mg/dL (8.5-10.5); Carbon Dioxide 33 mmol/L (22-29); Chloride 103 mmol/L (98-107); Glucose 90 mg/dL (65-115); Osmolality Calculated 297 mOsm/kg (285-295); Potassium 3.9 mmol/L (3.5-5.1); Sodium 143 mmol/L (136-145)
--- NOTE | 2021-11-26 09:21 | PC.NURSE ---
Postassium noted at 3.9. KCL rider stopped. Approx 19 mL of 100 mL infused. Magnesium level noted at 1.0. Magnesium 2 gm IV to be given as ordered.
[2021-11-26] MEDS: magnesium sulfate premix 2 GM/50 ML PIGGYBACK IV (09:58)
--- NOTE | 2021-11-26 13:13 | PC.NURSE ---
Dr. Benz's office, Jennifer, notified that saline bolus was held and that K-rider stopped due to potassium level at 3.9. Jennifer stated she would pass it on to Dr. Benz and if needed new orders would be sent.
== END 2021-11-29 23:59 | disposition home or self-care (01) ==
LOC: GILAB 08:16
PROVIDERS: PCP Family Medicine; Visit Provider Registered Nurse
DX: S52.501A Unspecified fracture of the lower end of right radius, initial encounter for closed fracture (principal); X58.XXXA Exposure to other specified factors, initial encounter; R79.1 Abnormal coagulation profile
CPT/HCPCS: 36591; 73110; 80048; 83735; 85610; 96360; 96365; 96366; 96367; 99024; J3475; J3480; J7030

== ENCOUNTER 2021-12-03 06:00 | Outpatient (RCR) | payer MEDICARE, SELFPAY | END 2021-12-30 23:59 | disposition home or self-care (01) | LOC: SOT 06:00 | PROVIDERS: PCP Family Medicine; Visit Provider Student in an Organized Health Care Education/Training Program | DX: S52.501S Unspecified fracture of the lower end of right radius, sequela (principal); X58.XXXS Exposure to other specified factors, sequela | CPT/HCPCS: 97110; 97140; 97166 ==

== ENCOUNTER 2021-12-17 07:58 | Outpatient (RCR) | payer MEDICARE, SELFPAY ==
[2021-12-03 08:28] VITALS: BP 121/56; PULSE 104; RESP 18; TEMP 36.6; O2SAT 92
[2021-12-03] MEDS: potassium chloride premix 100 ML 37 MEQ IV (08:40)
[2021-12-03 08:56] LABS: INR 1.63 (0.8-1.2)
[2021-12-03 09:12] LABS: Anion Gap 13.3 (5-19); Blood Urea Nitrogen 23 mg/dL (8-23); Calcium 9.2 mg/dL (8.5-10.5); Chloride 88 mmol/L (98-107); Glucose 95 mg/dL (65-115); Magnesium 1.4 mg/dL (1.7-2.3); Osmolality Calculated 295 mOsm/kg (285-295); Potassium 3.3 mmol/L (3.5-5.1); Sodium 141 mmol/L (136-145)
[2021-12-03] MEDS: sodium chloride 0.9% 1,000 ML 999 ML IV (09:15)
[2021-12-03 09:39] LABS: Carbon Dioxide 43 mmol/L (22-29)
[2021-12-03] MEDS: magnesium sulfate premix 2 GM/50 ML PIGGYBACK IV (10:16)
[2021-12-10] MEDS: sodium chloride 0.9% 1,000 ML 999 ML IV (08:17)
[2021-12-10] MEDS: potassium chloride premix 100 ML 37 MEQ IV (08:17)
[2021-12-10 08:30] VITALS: BP 117/64; PULSE 103; RESP 18; TEMP 36.9; O2SAT 98
[2021-12-10 08:47] LABS: INR 1.14 (0.8-1.2)
[2021-12-10 08:59] LABS: Anion Gap 15.1 (5-19); Blood Urea Nitrogen 38 mg/dL (8-23); Calcium 9.7 mg/dL (8.5-10.5); Chloride 78 mmol/L (98-107); Glucose 101 mg/dL (65-115); Magnesium 1.5 mg/dL (1.7-2.3); Osmolality Calculated 287 mOsm/kg (285-295); Potassium 3.1 mmol/L (3.5-5.1); Sodium 134 mmol/L (136-145)
[2021-12-10 09:02] LABS: Carbon Dioxide 44 mmol/L (22-29)
[2021-12-17 08:00] VITALS: BP 121/70; PULSE 93; RESP 18; TEMP 36.5; O2SAT 100
[2021-12-17] MEDS: sodium chloride 0.9% 1,000 ML 999 ML IV (08:01)
[2021-12-17] MEDS: potassium chloride premix 100 ML 37 MEQ IV (08:01)
[2021-12-17 08:30] LABS: INR 1.05 (0.8-1.2)
[2021-12-17 08:47] LABS: Anion Gap 15.6 (5-19); Blood Urea Nitrogen 31 mg/dL (8-23); Calcium 9.4 mg/dL (8.5-10.5); Chloride 78 mmol/L (98-107); Glucose 102 mg/dL (65-115); Magnesium 1.5 mg/dL (1.7-2.3); Osmolality Calculated 289 mOsm/kg (285-295); Sodium 136 mmol/L (136-145)
[2021-12-17 08:52] LABS: Carbon Dioxide 45 mmol/L (22-29); Potassium 2.6 mmol/L (3.5-5.1)
== END 2021-12-30 23:59 | disposition home or self-care (01) ==
LOC: GILAB 07:58
PROVIDERS: PCP Family Medicine; Visit Provider Registered Nurse
DX: Z91.89 Other specified personal risk factors, not elsewhere classified (principal); E87.6 Hypokalemia; E83.42 Hypomagnesemia; R79.1 Abnormal coagulation profile
CPT/HCPCS: 36591; 80048; 83735; 85610; 96360; 96365; 96366; 96367; J3475; J3480; J7030

== ENCOUNTER → 2021-12-19 13:26 | Outpatient (BNVA) | payer MEDICARE, SELFPAY | PROVIDERS: PCP Family Medicine; Visit Provider Student in an Organized Health Care Education/Training Program | DX: S52.501A Unspecified fracture of the lower end of right radius, initial encounter for closed fracture (principal); X58.XXXA Exposure to other specified factors, initial encounter | CPT/HCPCS: 73110; 99024 ==

== ENCOUNTER 2021-12-22 12:44 | Observation (INO) | payer MEDICARE, SELFPAY ==
[2021-12-22] VITALS (12 sets, daily range): BP systolic 79–123; BP diastolic 34–58; PULSE 67–115; RESP 12–20; TEMP 36.9; O2SAT 97–100; BMI 13.5; BMI 15.0
--- NOTE | 2021-12-22 13:03 | ECG_ITS ---
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 Measurements Intervals [place] Rate: 107 P: 77 IN: 147 QRS: 71 QRSD: 81 T: 79 QT: 379 QTc: 508 Interpretive Statements SINUS TACHYCARDIA WITH FREQUENT VENTRICULAR PREMATURE COMPLEXES POSSIBLE RIGHT ATRIAL ENLARGEMENT [0.25mV P-WAVE] LEFT ATRIAL ENLARGEMENT [-0.15mV P-WAVE IN V1/V2] INDETERMINATE AXIS POSSIBLE RIGHT VENTRICULAR CONDUCTION DELAY [RSR (QR) IN V1/V2] Compared to ECG 08/22/2021 17:16:10 Ventricular premature complex(es) now present Atrial abnormality now present Indeterminate axis now present T-wave abnormality no longer present Electronically Signed On 12-22-2021 21:57:00 CDT by Sara Arango M.D. [id number]
--- NOTE | 2021-12-22 13:28 | ECG_ITS ---
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 Measurements Intervals [place] Rate: 102 P: TN: QRS: 36 QRSD: 87 T: 73 QT: 376 QTc: 490 Interpretive Statements SINUS TACHYCARDIA WITH FREQUENT VENTRICULAR PREMATURE COMPLEXES INDETERMINATE AXIS POSSIBLE RIGHT VENTRICULAR CONDUCTION DELAY [RSR (QR) IN V1/V2] MODERATE ST DEPRESSION Compared to ECG 08/22/2021 17:16:10 Ventricular premature complex(es) now present Indeterminate axis now present ST (T wave) deviation now present T-wave abnormality no longer present Electronically Signed On 12-22-2021 21:53:29 CDT by Sara Arango M.D. [id number]
--- NOTE | 2021-12-22 13:28 | XRR_ITS ---
PROCEDURE INFORMATION: Exam: XR Chest Exam date and time: 12/22/2021 1:36 PM Age: 71 years old Clinical indication: Pain; Chest pressure; Prior surgery; Surgery type: Port; Additional info: Chest pain TECHNIQUE: Imaging protocol: Radiologic exam of the chest. Views: 1 view. COMPARISON: CR XR chest 1V portable [id number] 08/23/2021 4:39 AM FINDINGS: Tubes, catheters and devices: Right central line extends into the SVC Lungs: Unremarkable. No consolidation. Pleural spaces: Unremarkable. No pleural effusion. No pneumothorax. Heart/Mediastinum: Unremarkable. No cardiomegaly. Bones/joints: Orthopedic hardware proximal right humerus XR/XR chest 1V portable [id number] IMPRESSION: 1. No acute chest abnormality. 2. Orthopedic hardware right humerus. 3. Right central line is in the SVC
[2021-12-22 13:38] LABS: Basophils # 0.1 10^3/uL (0.0-0.1); Basophils % 0.5 %; Eosinophils # 0.1 10^3/uL (0.0-0.8); Hematocrit 32.2 % (37.0-47.0); Hemoglobin 10.7 g/dL (11.5-15.3); Lymphocytes # 1.3 10^3/uL (0.8-4.8); Lymphocytes % 13.5 %; Mean Corpuscular HGB Conc 33.2 g/dL (30.0-36.0); Mean Corpuscular Hemoglobin 32.3 pg (28.0-34.0); Mean Corpuscular Volume 97.3 fl (81-99); Monocytes # 1.1 10^3/uL (0.2-0.9); Monocytes % 10.9 %; Neutrophils # 7.18 10^3/uL (1.8-7.7); Neutrophils % 73.6 %; Nucleated Red Blood Cells % 0 %; Platelet Count 296 10^3/cmm (130-400); Red Blood Count 3.31 10^6/uL (4.1-5.3); White Blood Count 9.8 10^3/uL (4.0-10.0)
--- NOTE | 2021-12-22 13:50 | PC.NURSE ---
PT PLACED ON CONTINUOUS NIBP, SPO2, AND CM
[2021-12-22] MEDS: sodium chloride 0.9% 1,000 ML 999 ML IV ×3 (13:55→16:06)
[2021-12-22 13:57] LABS: D Dimer 1.54 ug/mIFEU (0-0.59)
[2021-12-22 14:08] LABS: Alanine Aminotransferase 31 U/L (0-33); Albumin Level 3.8 g/dL (3.5-5.2); Alkaline Phosphatase 183 U/L (35-105); Aspartate Amino Transferase 40 U/L (0-32); Blood Urea Nitrogen 50 mg/dL (8-23); Calcium 8.6 mg/dL (8.5-10.5); Carbon Dioxide 37 mmol/L (22-29); Chloride 79 mmol/L (98-107); Globulin 3.7 g/dL (1.3-4.6); Glucose 90 mg/dL (65-115); Osmolality Calculated 285 mOsm/kg (285-295); Sodium 131 mmol/L (136-145); Total Bilirubin 0.7 mg/dL (0.15-1.2); Total Protein 7.5 g/dL (6.6-8.7)
[2021-12-22 14:09] LABS: Troponin(5th) Baseline 37 ng/L (0-10)
--- NOTE | 2021-12-22 14:09 | W.ED.CHESTPA ---
HPI - Chest Pain General: Chief Complaint: Chest Pain Stated Complaint: Chest Pains, PAin in head Time Seen by Provider: 12/22/21 13:28 History of Present Illness: 71-year-old female presenting today with left-sided chest pain. Patient notes onset of pain this morning. She also notes that she has significant palpations. Is feeling as if her heart is racing and galloping. She notes a history of similar in the past. But this is more severe than her baseline. She denies nausea or vomiting. Only intermittently takes her medications. Denies any significant new abdominal pain. Has history of ostomy. Which appears to be running per baseline. She denies dysuria or polyuria. She denies nausea or vomiting. 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 Baseline creatinine in 2020 records here 2.0-4.0. Has required hemodialysis in past during times of acute illness. Follows with Dr Benz. Creatinine has been as high as 17 in setting of severe pre-renal azotemia. COVID-19 (~10/2019) Crohn's disease s/p total colectomy (1980) with ileostomy (2002) Distal radius fracture, right History of MRSA infection History of pelvic fracture Hyperaldosteronism At at least one point in time felt secondary to aldactone rather than primary Hyperlipidemia Hypersomnia Hypertrophy of bone of hand Hypokalemia chronically on IV infusions of potassium and magnesium Hypomagnesemia chronic Local infection due to Port-A-Cath (~2019) Myocardial infarction (lateral wall) Appears to have been identified during a prolonged hospital stay and possibly type II process. Had not required cardiac intervention. Osteoarthritis Osteoporosis Peripheral neuropathy Raynauds syndrome Severe protein-calorie malnutrition Short gut syndrome Stage III pressure ulcer Systolic congestive heart failure Diagnosed in 04/2019 at [facility] during a time of prolonged hospital care. Multiple echocardiograms show preserved EF 50-60% since that time. Appears to have been a transient issue related to acute medical issues at that time. Ventricular tachycardia (paroxysmal) related to electrolyte abnormalities Vitamin B12 deficiency Surgical History H/O ileostomy (~2002) H/O total colectomy (~2002) History of arthrodesis (08/03/18) right index finger History of delivery x4 History of hernia repair History of right hip replacement (~08/2019) History of tubal ligation Hx of appendectomy Port-A-Cath in place (10/12/19) right IJ Status post open reduction and internal fixation (ORIF) of fracture (12/22/19) left radius, Irina Status post open reduction and internal fixation (ORIF) of fracture (11/2019) right humerus, Irina Status post open reduction and internal fixation (ORIF) of fracture right hip Family History Other CAD (coronary artery disease) Cancer Congestive heart failure Diabetes Hyperlipidemia Social History Smoking and tobacco status: never smoked Second hand smoke exposure: No Alcohol intake: never Current occupational status: retired Physical Exam Const: COMMON NORMALS: no acute distress, patient oriented x3 and alert GENERAL APPEARANCE: cooperative ORIENTATION/CONSCIOUSNESS: Yes awake, Yes oriented to person, Yes oriented to place and Yes oriented to time HENMT: COMMON NORMALS: normocephalic, atraumatic, external ears normal, Normal external nose present and moist oral mucous membranes HEAD & SCALP: normal to inspection, normocephalic and atraumatic NOSE: Normal external nose present GENERAL EAR: hearing grossly impaired EXTERNAL EAR: Yes external ears normal Eye: COMMON NORMALS: Equal, round and reactive pupils present, EOMs intact bilaterally, conjunctivae normal and no scleral icterus GENERAL EYE: appearance normal, both eyes and all related structures EYELID: eyelids normal CONJUNCTIVA: Yes conjunctivae normal SCLERA: sclerae normal PUPIL: Yes Equal, round and reactive pupils present Neck/C-Spine: COMMON NORMALS: full ROM, supple and no JVD GENERAL: Yes normal visual inspection Lymph: LYMPHATIC: no lymphadenopathy noted and no lymphedema noted Chest: COMMONS NORMALS: normal inspection of the chest Resp: COMMON NORMALS: normal respiratory effort, No retractions and No use of accessory muscles Cardio: COMMON NORMALS: no JVD, regular rate and regular rhythm RATE: regular rate RHYTHM: regular rhythm GI: COMMON NORMALS: Normal to inspection, nondistended, normoactive bowel sounds present : COMMON NORMALS: Yes no CVA tenderness BLADDER/KIDNEY EXAM: Yes no CVA tenderness Back/Pelvis: COMMON NORMALS: no CVA tenderness and thoracic and lumbar spine normal to inspection Extremity: COMMON NORMALS: normal to inspection, full ROM and capillary refill normal GENERAL: Yes normal exam except as noted Neuro: COMMON NORMALS: patient oriented x3, CN's II-XII intact bilaterally, moves all extremities, no focal motor deficits, no sensory deficits noted and gait normal SENSORIUM/ORIENTATION: Yes alert, Yes oriented to person, Yes oriented to place and Yes oriented to time Psych: COMMON NORMALS: mental status grossly normal, Normal thought process present, cooperative and normal affect THOUGHT PROCESS: Normal thought process present Skin: COMMON NORMALS: no rashes or lesions noted and no wounds GENERAL SKIN EXAM: no rashes or lesions noted Course Vital Signs: Vital signs: Vital Signs Temperature 98.5 F 12/22/21 13:03 Pulse Rate 100 12/22/21 13:50 Respiratory Rate 20 H 12/22/21 13:50 Blood Pressure 90/51 12/22/21 13:50 Pulse Oximetry 97 12/22/21 13:50 Oxygen Delivery Me thod 12/22/21 13:03 MDM - Chest Pain Medical Decision Making 71-year-old female presenting today with chest pain. EKG with evidence of normal sinus rhythm with frequent PVCs. No evidence of ST wave changes to suggest acute ischemia. Initial troponin elevated. Repeat troponin with change of only 6. Vital signs with borderline hypotension. Patient bolused normal saline. CMP with evidence of acute on chronic renal failure. Likely secondary to dehydration. Will admit to the hospital for further evaluation and management. Lab Data : 12/22/21 13:29 12/22/21 13:29 Radiology Impressions Chest X-Ray 12/22/21 13:28 IMPRESSION: 1. No acute chest abnormality. 2. Orthopedic hardware right humerus. 3. Right central line is in the SVC Chest CT 12/22/21 14:12 IMPRESSION: 1. Calcified lymph nodes right hilum 2. Calcified pleural plaque bilateral upper lungs. 3. Otherwise negative examination Laboratory Results WBC 9.8 10^3/uL (4.0-10.0) 12/22/21 13:29 RBC 3.31 10^6/uL (4.1-5.3) L 12/22/21 13: Hgb 10.7 g/dL (11.5-15.3) L 12/22/21 13: Hct 32.2 % (37.0-47.0) L 12/22/21 13: MCV 97.3 fl (81-99) 12/22/21 13: MCH 32.3 pg (28.0-34.0) 12/22/21 13: MCHC 33.2 g/dL (30.0-36.0) 12/22/21 13: RDW 15.0 % (12.1-15.1) 12/22/21 13: Plt Count 296 10^3/cmm (130-400) 12/22/21 13: MPV 11.0 fL (7.4-10.4) H 12/22/21 13: Neut % (Auto) 73.6 % 12/22/21 13: Lymph % (Auto) 13.5 % 12/22/21 13: [place] % (Auto) 10.9 % 12/22/21 13: Eos % (Auto) 1.0 % 12/22/21 13: Baso % (Auto) 0.5 % 12/22/21 13: Neut # (Auto) 7.18 10^3/uL (1.8-7.7) 12/22/21 13: Lymph # (Auto) 1.3 10^3/uL (0.8-4.8) 12/22/21 13: [place] # (Auto) 1.1 10^3/uL (0.2-0.9) H 12/22/21 13: Eos # (Auto) 0.1 10^3/uL (0.0-0.8) 12/22/21 13: Baso # (Auto) 0.1 10^3/uL (0.0-0.1) 12/22/21 13: Nucleated RBC % (auto) 0 % 12/22/21 13: Nucleated RBCs # 0.0 /100WBC 12/22/21 13: D-Dimer 1.54 ug/mIFEU (0-0.59) H 12/22/21 13:29 Sodium 131 mmol/L (136-145) L 12/22/21 13:29 Potassium 3.0 mmol/L (3.5-5.1) L 12/22/21 13:29 Chloride 79 mmol/L (98-107) L 12/22/21 13:29 Carbon Dioxide 37 mmol/L (22-29) H 12/22/21 13:29 Anion Gap 18.0 (5-19) 12/22/21 13:29 BUN 50 mg/dL (8-23) H 12/22/21 13:29 Creatinine 4.8 mg/dL (0.5-0.9) H 12/22/21 13:29 GFR Calculation Not Reportable 12/22/21 13:29 Glucose 90 mg/dL (65-115) 12/22/21 13:29 Calculated Osmolality 285 mOsm/kg (285-295) 12/22/21 13:29 Calcium 8.6 mg/dL (8.5-10.5) 12/22/21 13:29 Total Bilirubin 0.7 mg/dL (0.15-1.2) 12/22/21 13:29 AST 40 U/L (0-32) H 12/22/21 13:29 ALT 31 U/L (0-33) 12/22/21 13:29 Alkaline Phosphatase 183 U/L (35-105) H 12/22/21 13:29 Troponin T Baseline 37 ng/L (0-10) H 12/22/21 13:29 Troponin T 120 Minute 30.88 ng/L (0-10) H 12/22/21 15:19 Delta Troponin T -6.12 ABS# (0-10) L 12/22/21 15:19 Total Protein 7.5 g/dL (6.6-8.7) 12/22/21 13:29 Albumin 3.8 g/dL (3.5-5.2) 12/22/21 13:29 Globulin 3.7 g/dL (1.3-4.6) 12/22/21 13:29 Urine Color Straw (Yellow) 12/22/21 16:25 Urine Appearance Clear (CLEAR) 12/22/21 16:25 Urine pH 7 (5-7) 12/22/21 16:25 Ur Specific [place] 1.005 (1.005-1.030) 12/22/21 16:25 Urine Protein Neg (Negative) 12/22/21 16:25 Urine Glucose (UA) Norm (Normal) 12/22/21 16:25 Urine Ketones Negative (Negative) 12/22/21 16:25 Urine Blood 2+ (Negative) H 12/22/21 16:25 Urine Nitrate Negative (Negative) 12/22/21 16:25 Urine Bilirubin Neg (Negative) 12/22/21 16:25 Urine Urobilinogen Norm mg/dL (Negative) 12/22/21 16:25 Ur Leukocyte Esterase Trace (Negative) H 12/22/21 16:25 Urine RBC 5-10 /hpf (0-2) H 12/22/21 16:25 Urine WBC 0-4 /hpf (0-5) H 12/22/21 16:25 Ur Squamous Epith Cells 0-4 /hpf (0-5) H 12/22/21 16:25 Amorphous Sediment Not Reportable 12/22/21 16:25 Urine Bacteria Trace /hpf (NONE) 12/22/21 16:25 Discharge Plan Discharge Patient Disposition: Admitted As Inpatient Clinical Impression: Acute kidney injury Condition: Stable Coding Level of Care Code ED Help Desk Administrator for Chg Fwd Exam Comprehensive
--- NOTE | 2021-12-22 14:12 | CTR_ITS ---
PROCEDURE INFORMATION: Exam: CT Chest Without Contrast; Diagnostic Exam date and time: 12/22/2021 2:53 PM Age: 71 years old Clinical indication: Cough and shortness of breath; Prior surgery; Additional info: SOB, cough, elevated dimer, renal failure TECHNIQUE: Imaging protocol: Diagnostic computed tomography of the chest without contrast. Radiation optimization: All CT scans at this facility use at least one of these dose optimization techniques: automated exposure control; mA and/or kV adjustment per patient size (includes targeted exams where dose is matched to clinical indication); or iterative reconstruction. COMPARISON: CR (CHEST, ) 12/22/2021 1:36 PM RADIATION DOSE METRICS: Total DLP (mGy-cm): 219.26 FINDINGS: Lungs: Unremarkable. No consolidation. No masses. Pleural spaces: Calcified pleural plaque is seen in the bilateral upper lungs. No pneumothorax. No pleural effusion. Heart: Unremarkable. No cardiomegaly. No pericardial effusion. Lymph nodes: Calcified lymph nodes are seen in the right hilum. No enlarged lymph nodes. Vasculature: Unremarkable. No aortic aneurysm. Bones/joints: Unremarkable. No acute fracture. Soft tissues: Unremarkable. CT/CT chest wo con [id number] IMPRESSION: 1. Calcified lymph nodes right hilum 2. Calcified pleural plaque bilateral upper lungs. 3. Otherwise negative examination
--- NOTE | 2021-12-22 15:28 | ECG_ITS ---
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 Measurements Intervals [place] Rate: 91 P: 71 IA: 160 QRS: 40 QRSD: 85 T: 63 QT: 406 QTc: 501 Interpretive Statements SINUS RHYTHM WITH FREQUENT VENTRICULAR PREMATURE COMPLEXES WITH OCCASIONAL SUPRAVENTRICULAR PREMATURE COMPLEXES POSSIBLE LEFT ATRIAL ENLARGEMENT [-0.1mV P-WAVE IN V1/V2] POSSIBLE RIGHT VENTRICULAR CONDUCTION DELAY [RSR (QR) IN V1/V2] ABNORMAL RHYTHM ECG Compared to ECG 12/22/2021 13:43:35 Atrial fibrillation no longer present Aberrant conduction of supraventricular beat(s) no longer present Indeterminate axis no longer present ST (T wave) deviation no longer present Electronically Signed On 12-23-2021 23:10:13 CDT by Sara Arango M.D. [id number]
[2021-12-22 15:46] LABS: Troponin 5 2HR 30.88 ng/L (0-10)
[2021-12-22 16:07] LABS: Troponin 5 2HR Delta -6.12 ABS# (0-10)
[2021-12-22 16:46] LABS: Add Urine Culture? No; Add Urine Microscopic? YES; Bacteria Urine TRACE /hpf; Bilirubin Urine Neg (Negative); Blood Urine 2+ (Negative); Glucose Urine UA Norm (Normal); Ketones Urine Negative (Negative); Leukocyte Esterase Urine Trace (Negative); Nitrate Urine Negative (Negative); Protein Urine Neg (Negative); Specific Gravity, Urine 1.005 (1.005-1.030); Squamous Epithelial Cell Urine 0-4 /hpf (0-5); Urine Appearance Clear (CLEAR); Urine Color Straw (Yellow); Urobilinogen Urine Norm (Negative); WBC Urine 0-4 /hpf (0-5); pH Urine 7 (5-7)
--- NOTE | 2021-12-22 17:58 | P.HP_ITS ---
Providers/Chief Complaint Primary Care Provider: Tracy Jiang DO Chief Complaint: Chest Pains, PAin in head History of Present Illness Janene Gallegos is a 71 year old female with past medical history of atrial fibrillation on Coumadin, history of chronic hypokalemia and hypomagnesemia, with port in place for transfusions, history of CKD, with history of intermittent dialysis, she has had 2 dialysis catheters placed for worsening LUIS ALFREDO secondary to ibuprofen use, recently removed, history of Crohn's disease status post total colectomy history of BMI 13.5, hyperlipidemia, history of CAD, history of systolic CHF, history of paroxysmal ventricular tachycardia, who presents to [facility] due to chest pain. Patient tells me that she is now back here in [place], she had a right wrist fracture, status post surgery by Dr. Bernard, currently is in a wrist brace. Today she start developed substernal chest pain, nonradiating, no shortness of breath, no lightheadedness, dizziness, no nausea, no vomiting, no diaphoresis. She has been developing lower extremity edema Dr. Benz has her on Bumex 2 mg once daily. They are also worried about a DVT however her right lower extremity swelling has significant improved she is also having facial swelling which also resolved. She is also been weak, fatigued, she has a colostomy in place, no significant increase in output, no diarrhea, her pressure ulcers have resolved, denies any dysuria. Here in the emergency room she was found to have a creatinine of 4.8, with potassium 3.0 she was found to be hypotensive, has received 3 L bolus, currently blood pressures 120s over 70s, she is alert oriented x3, she feels a bit better, no chest pain currently her 120-minute troponin 30.88, no significant delta troponin, no acute ST-T wave changes, hospitalist team was ca lled for admission Review of Systems Card: Reports: chest pain Resp: Denies: dyspnea GI: Denies: abdominal pain Medications/Allergies Home Medications Medication Instructions Recorded Confirmed Last Taken Type acetaminophen 500 mg tablet 1,000 mg PO Q6H PRN Pain 04/30/20 12/22/21 10/09/21 History (Tylenol Extra Strength) [facility] Joint Brace #1 ea 05/08/20 12/22/21 10/09/21 Rx ostomy wipes #100 ea 10/25/20 12/22/21 10/09/21 Rx aspirin 81 mg tablet,delayed 81 mg PO BID 08/16/21 12/22/21 12/21/21 History release atorvastatin 20 mg tablet 20 mg PO BEDTIME #30 tabs 08/24/21 12/22/21 12/21/21 Rx gabapentin 400 mg capsule 800 mg PO TID #90 caps 08/24/21 12/22/21 12/22/21 Rx hydrocodone 5 mg-acetaminophen 325 1 tab PO Q6H PRN pain #14 tabs 10/28/21 12/22/21 11/05/21 Rx mg tablet pantoprazole 20 mg tablet,delayed 20 mg PO DAILY 10/28/21 12/22/21 12/21/21 History release promethazine 25 mg tablet 25 mg PO TID PRN Nausea 10/28/21 12/22/21 11/05/21 History tramadol 50 mg tablet 50 mg PO Q6H PRN pain 7 days #28 11/06/21 12/22/21 Unknown Rx tabs VELCRO WRIST BRACE #1 ea 11/21/21 12/22/21 Unknown Rx bumetanide 2 mg tablet 2 mg PO DAILY 12/22/21 12/22/21 12/21/21 History calcium carbonate 600 mg-vitamin 1 tab PO BID 12/22/21 12/22/21 12/21/21 History D3 5 mcg (200 unit) tablet warfarin 1 mg tablet See Rx Instructions .Route .COMPLEX 12/22/21 12/22/21 12/21/21 History Allergies Allergy/AdvReac Type Severity Reaction Status Date / Time amoxicillin Allergy ALGY-Hives Verified 12/19/21 13:45 cefazolin [From Ancef] Allergy ALGY-Rash Verified 12/19/21 13:45 cephalexin [From Keflex] Allergy ALGY-Rash Verified 12/19/21 13:45 codeine Allergy ALGY-Hives Verified 12/19/21 13:45 doxycycline Allergy ALGY-Hives Verified 12/19/21 13:45 erythromycin base Allergy ALGY-Hives Verified 12/19/21 13:45 [From E.E.S.] latex Allergy Unknown Verified 12/19/21 13:45 metoclopramide Allergy Unknown Verified 12/19/21 13:45 neomycin Allergy ALGY-Hives Verified 12/19/21 13:45 Penicillins Allergy ALGY-Hives Verified 12/19/21 13:45 polyethylene glycol Allergy ADR-Swelling Verified 12/19/21 13:45 of the Eye pregabalin [From Lyrica] Allergy ALGY-Swell Verified 12/19/21 13:45 Lip/Tongue/Throat prochlorperazine Allergy ALGY-Hives Verified 12/19/21 13:45 [From Compazine] propoxyphene [From Darvon] Allergy ALGY-Hives Verified 12/19/21 13:45 sapropterin Allergy ADR-Swelling Verified 12/19/21 13:45 [From Tetrahydrobiopterin of the Eye Di-HCL] scopolamine Allergy ALGY-Hives Verified 12/19/21 13:45 Sulfa (Sulfonamide Allergy ALGY-Hives Verified 12/19/21 13:45 Antibiotics) tegaserod [From Zelnorm] Allergy ALGY-Hives Verified 12/19/21 13:45 tetracycline Allergy ALGY-Hives Verified 12/19/21 13:45 tetrahydrozoline Allergy ADR-Swelling Verified 12/19/21 13:45 [From Visine] of the Eye PFSH Acute PFSH: Medical History (Updated 12/22/21 @ 18:03 by Cody Johns MD) Atrial fibrillation not chronic Autonomic neuropathy BMI less than 19,adult Chronic anemia mixed B12 and iron deficiency 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 Baseline creatinine in 2020 records here 2.0-4.0. Has required hemodialysis in past during times of acute illness. Follows with Dr Benz. Creatinine has been as high as 17 in setting of severe pre-renal azotemia. COVID-19 (~10/2019) Crohn's disease s/p total colectomy (1980) with ileostomy (2002) Distal radius fracture, right History of MRSA infection History of pelvic fracture Hyperaldosteronism At at least one point in time felt secondary to aldactone rather than primary Hyperlipidemia Hypersomnia Hypertrophy of bone of hand Hypokalemia chronically on IV infusions of potassium and magnesium Hypomagnesemia chronic Local infection due to Port-A-Cath (~2019) Myocardial infarction (lateral wall) Appears to have been identified during a prolonged hospital stay and possibly type II process. Had not required cardiac intervention. Osteoarthritis Osteoporosis Peripheral neuropathy Raynauds syndrome Severe protein-calorie malnutrition Short gut syndrome Stage III pressure ulcer Systolic congestive heart failure Diagnosed in 04/2019 at [facility] during a time of prolonged hospital care. Multiple echocardiograms show preserved EF 50-60% since that time. Appears t o have been a transient issue related to acute medical issues at that time. Ventricular tachycardia (paroxysmal) related to electrolyte abnormalities Vitamin B12 deficiency Surgical History H/O ileostomy (~2002) H/O total colectomy (~2002) History of arthrodesis (08/03/18) right index finger History of delivery x4 History of hernia repair History of right hip replacement (~08/2019) History of tubal ligation Hx of appendectomy Port-A-Cath in place (10/12/19) right IJ Status post open reduction and internal fixation (ORIF) of fracture (12/22/19) left radius, Irina Status post open reduction and internal fixation (ORIF) of fracture (11/2019) right humerus, Irina Status post open reduction and internal fixation (ORIF) of fracture right hip Family History Other CAD (coronary artery disease) Cancer Congestive heart failure Diabetes Hyperlipidemia Social History Smoking and tobacco status: never smoked Second hand smoke exposure: No Alcohol intake: never Current occupational status: retired Vitals/I&O/Wt Last Vital Signs Temp 98.5 F 12/22/21 13:03 Pulse 86 12/22/21 17:00 Resp 16 12/22/21 17:00 BP 93/43 12/22/21 17:00 Pulse Ox 100 12/22/21 17:00 O2 Del Method 12/22/21 13:03 12/22/21 12/22/21 12/22/21 06:59 14:59 22:59 Intake Total 1999 Balance 1999 Weight last 48 hrs Weight 33.566 kg Physical Exam Const: COMMON NORMALS: no acute distress and patient oriented x3 GENERAL APPEARANCE: frail appearing NUTRITIONAL APPEARANCE: cachectic HENMT: COMMON NORMALS: normocephalic HEAD & SCALP: normocephalic Neck/C-Spine: COMMON NORMALS: no JVD Resp: COMMON NORMALS: normal respiratory effort, No retractions, No use of accessory muscles and clear to auscultation bilaterally AUSCULTATION: clear to auscultation bilaterally Cardio: COMMON NORMALS: no JVD, regular rate, regular rhythm, S1 normal heart sound present and S2 normal heart sound present RATE: regular rate RHYTHM: regular rhythm HEART SOUNDS: S1 normal heart sound present and S2 normal heart sound present GI: COMMON NORMALS: Normal to inspection, nondistended, normoactive bowel sounds present, Soft to palpation, non-tender, no masses and no bruits PALP ATION: Yes Soft to palpation Extremity: COMMON NORMALS: capillary refill normal, no clubbing, cyanosis or edema, no calf tenderness and no pedal edema Neuro: COMMON NORMALS: patient oriented x3, CN's II-XII intact bilaterally and moves all extremities Psych: COMMON NORMALS: mental status grossly normal Data : 12/22/21 13:29 12/22/21 13:29 A&P Assessment and plan (1) Acute kidney injury: (2) Severe protein-calorie malnutrition: (3) Chronic anemia: (4) BMI less than 19,adult: (5) Hypokalemia: (6) Atrial fibrillation: (7) Chest pain: (8) Hypotension: Plan Chest pain -Serial EKGs, Surgiports, telemetry monitoring -Monitor for chest pain -Continue aspirin, hold statin until CPK comes back -Cardiac echo -We will hold off on stress testing, monitor clinical progress LUIS ALFREDO on CKD -She has had 2 dialysis, access, recently taken out, most recently secondary to analgesic use -Creatinine 4.8, received fluids, monitor urine output, monitor creatinine -We will check salicylate level Hypokalemia, will replace Hypomagnesemia, check magnesium level Hypotension, secondary to profound dehydration -Check lactic acid -UA potential UTI she has multiple drug allergies, will try Primaxin UTI, follow urine cultures, blood cultures, continue Primaxin Protein calorie malnutrition, cachexia, anorexia Attestations Medical Necessity Statement*: Patient requires hospitalization, outpatient observation, for LUIS ALFREDO, hypotension, chest pain Coding Level of Care Code Acute [employer] Client [employer] Consultant for g Fwd Diagnoses Acute kidney injury N17.9 Severe protein-calorie malnutrition E43 Chronic anemia D64.9 BMI less than 19,adult Z68.1 Hypokalemia E87.6 Atrial fibrillation I48.91 Chest pain R07.9 Hypotension I95.9
--- NOTE | 2021-12-22 18:08 | USCV_ITS ---
Janene Gallegos Age: 71 Gender: F : 1950 Exam Date: 12/22/2021 18:19 Ordering Phys: Cody Johns MD Technologist: Natalya Bass Exam Location: [facility] [place] Indication: CHEST PAIN BP: 115 / 51 HR: 84 Rhythm: Irregular Technical Quality: Adequate MEASUREMENTS (Male / Female) Normal Values 2D ECHO LV Diastolic Diameter PLAX 2.9 cm 4.2 - 5.9 / 3.9 - 5.3 cm LV Systolic Diameter PLAX 2.3 cm LV Chamber Size 2.9 cm IVS Diastolic Thickness 0.9 cm 0.6 - 1.0 / 0.6 - 0.9 cm IVS Systolic Thickness 1.1 cm LVPW Diastolic Thickness 1.3 cm 0.6 - 1.0 / 0.6 - 0.9 cm LVPW Systolic Thickness 1.3 cm RV Chamber Size 2.3 cm LVOT Diameter 2.0 cm LV Ejection Fraction 2D Teich 41.7 % LV Ejection Fraction MOD 2C 60.8 % LV Ejection Fraction 2C AL 61.5 % LA Diameter 1.9 cm LA Width 2.7 cm LA Height 2.8 cm RA Width 3.2 cm RA Height 3.1 cm Aorta at Sinotubular Diameter 2.0 cm IVC Diameter 0.9 cm M-MODE Aortic Annulus Diameter 2.8 cm LA Ao Ratio MM 0.7 MV E Point Septal Separation 0.9 cm DOPPLER AV Peak Velocity 156.0 cm/s LVOT Peak Velocity 68.0 cm/s AV Area Cont Eq vti 2.0 cm squared AV Area Cont Eq pk 1.4 cm squared MV Area PHT 5.0 cm squared Mitral E to A Ratio 0.9 MV E' Velocity 44.0 cm/s Mitral E to MV E' Ratio 12.0 Mitral E to LV E' Lateral Ratio 11.2 Mitral E to LV E' Septal Ratio 12.9 TR Peak Velocity 205.0 cm/s TR Peak Gradient 16.8 mmHg TR Mean Velocity 160.8 cm/s TR Mean Gradient 11.3 mmHg TR Velocity Time Integral 71.3 cm TV Peak E Velocity 63.0 cm/s Right Atrial Pressure 3.0 mmHg Pulmonary Artery Systolic Pressu 19.8 mmHg RV Acceleration Time 0.1 s RV Ejection Time 0.3 s RV AcT/ET 0.4 FINDINGS Left Ventricle Normal left ventricular size, systolic function and wall thickness, with no regional wall motion abnormalities. Left ventricular ejection fraction is estimated at 65 %. Normal diastolic function. Right Ventricle Normal right ventricular size and systolic function. Right ventricular systolic pressure 21 mmHg. Right Atrium Normal right atrial size. Left Atrium Normal left atrial size. Mitral Valve Mildly thickened mitral valve. Bowing of mild bilateral mitral leaflets with no prolapse. No mitral valve stenosis. Trace mitral valve regurgitation. Aortic Valve Structurally normal trileaflet aortic valve. No aortic valve stenosis. No aortic valve regurgitation. Tricuspid Valve Structurally normal tricuspid valve. No tricuspid valve stenosis. Trace tricuspid valve regurgitation. Pulmonic Valve Structurally normal pulmonic valve. No pulmonary valve stenosis. Trace pulmonary valve regurgitation. Pericardium No pericardial effusion. Aorta Normal size aortic root and proximal ascending aorta. IVC Normal IVC dimension with >50% respiratory change of the inferior vena cava. CONCLUSIONS 1. Normal left ventricular size, systolic function and wall thickness, with no regional wall motion abnormalities. Left ventricular ejection fraction is estimated at 65 %. Normal diastolic function. 2. Normal right ventricular size and systolic function. 3. When compared to previous study dated 05/01/2020, there may not have been any significant change. Sara Arango MD (Electronically Signed) Final Date: 23 December 2021 12:52 S
[2021-12-22 18:38] LABS: Creatine Phosphokinase 43 U/L (26-192); Magnesium 1.4 mg/dL (1.7-2.3)
[2021-12-22 18:45] LABS: Amphetamines Screen Urine Negative (Negative); Barbiturates Screen Urine Negative (Negative); Benzodiazepines Screen Urine Negative (Negative); Cocaine Screen Urine Negative (Negative); Opiate Screen Urine Negative (Negative); PCP Screen Urine Negative (Negative); THC Screen Urine Negative (Negative)
[2021-12-22 18:45] LABS: Procalcitonin 0.34 ng/mL (0-0.5)
[2021-12-22 18:47] LABS: Salicylate < 0.3 mg/dL (3-10)
--- NOTE | 2021-12-22 19:15 | PC.NURSE ---
Transfer Note Patient transferred to ICU from ER via stretcher. Handoff received from JAEL Whiting. Patient oriented to environment and equipment. Covering service notified. Orders reviewed and will continue to monitor. Family and/or termite control representative notified. Patient transferred on room air and is alert/oriented x4 upon arrival to ICU. No wounds or skin issues noted at this time. Belongings including shoes, shirt, jacket, pants placed at bedside.
[2021-12-22] MEDS: potassium chloride ER 20 mEq Tablet 40 MEQ PO (20:07)
[2021-12-22] MEDS: aspirin 81 mg EC Tablet PO (20:07)
[2021-12-22] MEDS: gabapentin 400 mg Capsule 800 MG PO (20:08)
[2021-12-22] MEDS: sodium chloride 0.9% 1,000 ML 125 ML IV (20:08)
[2021-12-22 20:10] LABS: Thyroid Stimulating Hormone 0.47 uIU/mL (0.27-4.20)
[2021-12-22 20:16] LABS: INR 1.31 (0.8-1.2)
[2021-12-22 20:22] LABS: Troponin 5 6HR 27.67 ng/L (0-10)
[2021-12-22 20:24] LABS: Lactate (Lactic Acid level) 0.6 mmol/L (0.5-2.2)
[2021-12-23] VITALS (8 sets, daily range): BP systolic 109–117; BP diastolic 45–56; PULSE 74–86; RESP 13–24; TEMP 36.4–37.1; O2SAT 76–100
[2021-12-23 01:02] LABS: INR 1.26 (0.8-1.2)
[2021-12-23] MEDS: lactated ringers 500 ML 999 ML IV (03:35)
[2021-12-23 03:57] LABS: Basophils % 0.5 %; Eosinophils # 0.3 10^3/uL (0.0-0.8); Eosinophils % 4.3 %; Hematocrit 27.4 % (37.0-47.0); Hemoglobin 8.9 g/dL (11.5-15.3); Lymphocytes % 15.2 %; Mean Corpuscular HGB Conc 32.5 g/dL (30.0-36.0); Mean Corpuscular Hemoglobin 32.6 pg (28.0-34.0); Mean Corpuscular Volume 100.4 fl (81-99); Mean Platelet Volume 11.1 fL (7.4-10.4); Monocytes # 0.7 10^3/uL (0.2-0.9); Monocytes % 11.2 %; Neutrophils # 4.28 10^3/uL (1.8-7.7); Neutrophils % 68.3 %; Nucleated Red Blood Cells % 0 %; Platelet Count 235 10^3/cmm (130-400); Red Blood Count 2.73 10^6/uL (4.1-5.3); White Blood Count 6.3 10^3/uL (4.0-10.0)
[2021-12-23 04:25] LABS: Anion Gap 14.7 (5-19); Blood Urea Nitrogen 39 mg/dL (8-23); Carbon Dioxide 27 mmol/L (22-29); Chloride 95 mmol/L (98-107); Glucose 153 mg/dL (65-115); Magnesium 1.2 mg/dL (1.7-2.3); Osmolality Calculated 290 mOsm/kg (285-295); Phosphorus 3.4 mg/dL (2.5-4.5); Sodium 134 mmol/L (136-145)
[2021-12-23] MEDS: HYDROcodone-acetaminophen 5-325 mg Tablet 1 TAB PO (04:34)
[2021-12-23] MEDS: sodium chloride 0.9% 1,000 ML 125 ML IV ×2 (04:36→10:22)
[2021-12-23 05:02] LABS: Potassium 2.7 mmol/L (3.5-5.1)
[2021-12-23] MEDS: potassium chloride ER 20 mEq Tablet 40 MEQ PO ×2 (05:21→13:47)
--- NOTE | 2021-12-23 06:22 | PC.NURSE ---
Shift Note Frequent safety and comfort rounds continue. Orders and/or nursing care completed as indicated. Patient monitored for response to intervention and treatment(s). Education provided includes blood pressure and turning/repositioning. Patient verbalized understanding of teaching. Patient remains on room air and is alert/oriented x4 at this time. No wounds or skin issue noted at this time. Changed colostomy per patient request-stoma pink. Colostomy drained 1025 mls of brown liquid stool overnight. Levophed and IVF infusing per protocol please see MAR for detail. Will continue to monitor.
[2021-12-23] MEDS: aspirin 81 mg EC Tablet PO (08:22)
[2021-12-23] MEDS: pantoprazole DR 40 mg Tablet 20 MG PO (08:22)
[2021-12-23] MEDS: calcium carb-vit d 600mg/400unit 1 Tablet 1 EACH PO (08:27)
[2021-12-23] MEDS: magnesium sulfate premix 2 GM/50 ML PIGGYBACK IV (10:21)
[2021-12-23] MEDS: potassium chloride premix 100 ML 25 MEQ IV (10:21)
--- NOTE | 2021-12-23 12:37 | PC.CHAP ---
Pastoral Care Encounter/Spiritual Assessment Type of Contact [] Declined agriculturist visit [] Patient/Family/Request visit [] Outpatient visit [] Follow-up visit [] Physician referral [] Code/Alert x] Routine visit [] Staff referral [] Actively dying [] Patient sleeping [] Family support [] [] Out of room [] Palliative care [] [x] Receiving care in room [] Pre-surgical visit [] Trauma [] Long length of stay [x] ICU visit [] Other: Relational/Emotional Strength [] Patient feels connected with others/family/visitors/staff [] Distress [] Loneliness/isolation [] Abandonment Spirituality of Patient [] Person of Winter [] Attends Mandaeism of their Winter [] Believes in Prayer [] Reads Bible or Yazidism materials [] There are Spiritual issues to be addressed System Controller Interventions [x] Prayer [] Active listening [] Non-anxious presence [] Spiritual/emotional support [] Crisis/trauma care [] Spiritual counseling [] Bereavement support [] Provided bereavement packet [] Provided Bible/devotional materials [] Provided toy/stuffed animal, coloring book to patient or family member [] Provided Communion [] Anointing/Boomer [] Salvation [x] Completed spiritual assessment [] Other: Impact on Illness or Injury [] Angry [] Fearful [] Anxious [] Often cries [] Exhaustion [] Unable to work [] Unable to attend baptism [] Unable to walk/stand [] Unable to read [] Unable to drive [] Unable to eat/drink [] Unable to sleep [] Unable to be with family [] Patient intubated [] Other: Summary Time spent with patient
--- NOTE | 2021-12-23 13:00 | PC.NURSE ---
Patient did not take 1400 dose of warfarin because she was going to take it when she got home.
[2021-12-23 13:25] LABS: Bacillus cereus group Not Detected (NOT DETECT); Bacillus subtillis group Not Detected (NOT DETECT); Corynebacterium Not Detected (NOT DETECT); Cutibacterium acnes (P.acnes) Not Detected (NOT DETECT); Enterococcus Not Detected (NOT DETECT); Enterococcus faecalis Not Detected (NOT DETECT); Enterococcus faecium Not Detected (NOT DETECT); Lactobacillus species Not Detected (NOT DETECT); Listeria Not Detected (NOT DETECT); Listeria monocytogenes Not Detected (NOT DETECT); Micrococcus Not Detected (NOT DETECT); Pan Candida Not Detected (NOT DETECT); Pan Gram-Negative Not Detected (NOT DETECT); Staphylococcus epidermidis Detected (NOT DETECT); Staphylococcus lugdunensis Not Detected (NOT DETECT); Staphylococcus species Detected (NOT DETECT); Streptococcus agalactiae Not Detected (NOT DETECT); Streptococcus anginosus group Not Detected (NOT DETECT); Streptococcus pneumoniae Not Detected (NOT DETECT); Streptococcus pyogenes Not Detected (NOT DETECT); Streptococcus species Not Detected (NOT DETECT); mecA Detected (NOT DETECT); mecC Not Detected (NOT DETECT)
[2021-12-23 14:22] LABS: Anion Gap 15.3 (5-19); Blood Urea Nitrogen 31 mg/dL (8-23); Calcium 8.6 mg/dL (8.5-10.5); Carbon Dioxide 27 mmol/L (22-29); Chloride 99 mmol/L (98-107); Glucose 104 mg/dL (65-115); Magnesium 1.8 mg/dL (1.7-2.3); Phosphorus 2.6 mg/dL (2.5-4.5); Potassium 4.3 mmol/L (3.5-5.1); Sodium 137 mmol/L (136-145)
--- NOTE | 2021-12-23 14:35 | P.DS_ITS ---
Discharge Providers Date of Admission: 12/22/21 17:48 Date of Discharge: December 23, 2021 Attending Provider at Admission: Cody Johns MD Attending Provider at Discharge: Adeel Jonas MD Primary Care Provider: Tracy Jiang DO Diagnoses at Discharge Discharge Diagnosis (1) Acute kidney injury: Status: Acute (2) Severe protein-calorie malnutrition: Status: Chronic (3) Chronic anemia: Status: Chronic Permanent problem details: mixed B12 and iron deficiency related to malabsorption and chronic kidney disease (4) BMI less than 19,adult: Status: Chronic (5) Hypokalemia: Status: Chronic (6) Atrial fibrillation: Status: Acute Permanent problem details: not chronic (7) Chest pain: Status: Acute (8) Hypotension: Status: Acute (9) Hypomagnesemia: Status: Chronic Permanent problem details: chronic (10) Chronic kidney disease: Status: Chronic Permanent problem details: At least stage 3a. Baseline creatinine in 2020 records here 2.0-4.0. Has required hemodialysis in past during times of acute illness. Follows with Dr Benz. Creatinine has been as high as 17 in setting of severe pre-renal azotemia. Reason for Visit Reason for Visit: Chest Pains, PAin in head Hospital Course Hospital Course Janene Gallegos is a 71-year-old female with a past medical history significant for paroxysmal atrial fibrillation on Coumadin, Crohn's disease with history of total colectomy in 1980 and ileostomy in 2002 with subsequent short gun syndrome, severe protein calorie malnutrition, and hypokalemia who presented with chest pain. Acute coronary syndrome was considered but ruled out with serial troponin, EKG and telemetry monitoring. Transthoracic echocardiogram revealed normal left ventricular size, systolic function, and wall thickness. No regional wall motion abnormalities were seen. She was found to have severe hypokalemia, hypomagnesia, hypovolemic hypotension, and acute kidney injury on chronic kidney disease stage 3a. Electrolytes were aggressively replaced and corrected. Renal function returned to baseline with aggressive IV fluids. Urinary tract infection considered, but ruled out with urinalysis and lack of symptoms. Symptoms resolved. Her recovery was much quicker than expected. Patient discharged to home in stable condition. She is to follow up with PCP in 1-2 weeks. Physical Exam Narrative: General: Patient is awake and alert. Frail-appearing Head: Normocephalic. Atraumatic. EOM intact. Neck: No JVD. Cardiovascular: No gallops. 2+ systolic murmurs. No peripheral edema. Lungs: Clear to auscultation, no use of accessory muscles, no crackles or wheezes. Skin: No jaundice. No rashes. Abdomen: Normal bowel sounds, abdomen soft and nontender. Ostomy present. Genito Urinary: Genital exam not performed since complaints not related. Rectal: Rectal exam not performed since no symptoms indicated blood loss. Extremeties: No cyanosis or clubbing. Musculoskeletal: 5/5 strength, normal range of motion, no swollen or e rythematous joints. Neurological: Moves all 4 extremities. No myoclonus. Discharge Data Studies Completed and Pending Completed Studies During Hospitalization Category Date Time Status CT chest wo con [id number] Stat Cat Scan 12/22/21 14:12 Completed XR chest 1V portable [id number] Stat Exams 12/22/21 13:28 Completed CV. echo complete* [id number] Stat Ultrasound 12/22/21 18:08 Completed Pending at discharge Category Date Time Status Blood Culture Stat Lab 12/22/21 19:53 Results Complete Blood Count w/Auto AM LABS Lab 12/24/21 04:00 Ordered Complete Blood Count w/Auto AM LABS Lab 12/25/21 04:00 Ordered Urine Culture Stat Lab 12/22/21 16:25 Received Radiology Impressions Chest X-Ray 12/22/21 13:28 IMPRESSION: 1. No acute chest abnormality. 2. Orthopedic hardware right humerus. 3. Right central line is in the SVC Chest CT 12/22/21 14:12 IMPRESSION: 1. Calcified lymph nodes right hilum 2. Calcified pleural plaque bilateral upper lungs. 3. Otherwise negative examination Laboratory Results WBC 6.3 10^3/uL (4.0-10.0) 12/23/21 03:38 RBC 2.73 10^6/uL (4.1-5.3) L 12/23/21 03:38 Hgb 8.9 g/dL (11.5-15.3) L 12/23/21 03:38 Hct 27.4 % (37.0-47.0) L 12/23/21 03:38 MCV 100.4 fl (81-99) H 12/23/21 03:38 MCH 32.6 pg (28.0-34.0) 12/23/21 03:38 MCHC 32.5 g/dL (30.0-36.0) 12/23/21 03:38 RDW 15.0 % (12.1-15.1) 12/23/21 03:38 Plt Count 235 10^3/cmm (130-400) 12/23/21 03:38 MPV 11.1 fL (7.4-10.4) H 12/23/21 03:38 Neut % (Auto) 68.3 % 12/23/21 03:38 Lymph % (Auto) 15.2 % 12/23/21 03:38 [place] % (Auto) 11.2 % 12/23/21 03:38 Eos % (Auto) 4.3 % 12/23/21 03:38 Baso % (Auto) 0.5 % 12/23/21 03:38 Neut # (Auto) 4.28 10^3/uL (1.8-7.7) 12/23/21 03:38 Lymph # (Auto) 1.0 10^3/uL (0.8-4.8) 12/23/21 03:38 [place] # (Auto) 0.7 10^3/uL (0.2-0.9) 12/23/21 03:38 Eos # (Auto) 0.3 10^3/uL (0.0-0.8) 12/23/21 03:38 Baso # (Auto) 0.0 10^3/uL (0.0-0.1) 12/23/21 03:38 Nucleated RBC % (auto) 0 % 12/23/21 03:38 Nucleated RBCs # 0.0 /100WBC 12/23/21 03:38 PT 16.60 SECONDS (12.1-14.9) H 12/22/21 19:53 INR 1.31 (0.8-1.2) H 12/22/21 19:53 D-Dimer 1.54 ug/mIFEU (0-0.59) H 12/22/21 13:29 Sodium 137 mmol/L (136-145) 12/23/21 13:45 Potassium 4.3 mmol/L (3.5-5.1) 12/23/21 13:45 Chloride 99 mmol/L (98-107) 12/23/21 13:45 Carbon Dioxide 27 mmol/L (22-29) 12/23/21 13:45 Anion Gap 15.3 (5-19) 12/23/21 13:45 BUN 31 mg/dL (8-23) H 12/23/21 13:45 Creatinine 2.2 mg/dL (0.5-0.9) H 12/23/21 13:45 GFR Calculation Not Reportable 12/23/21 13:45 Glucose 104 mg/dL (65-115) 12/23/21 13:45 Calculated Osmolality 290 mOsm/kg (285-295) 12/23/21 03:38 Lactate 0.6 mmol/L (0.5-2.2) 12/22/21 19:53 Calcium 8.6 mg/dL (8.5-10.5) 12/23/21 13:45 Phosphorus 2.6 mg/dL (2.5-4.5) 12/23/21 13:45 Magnesium 1.8 mg/dL (1.7-2.3) 12/23/21 13:45 Total Bilirubin 0.7 mg/dL (0.15-1.2) 12/22/21 13:29 AST 40 U/L (0-32) H 12/22/21 13:29 ALT 31 U/L (0-33) 12/22/21 13:29 Alkaline Phosphatase 183 U/L (35-105) H 12/22/21 13:29 Creatine Kinase 43 U/L (26-192) 12/22/21 13:29 Troponin T Baseline 37 ng/L (0-10) H 12/22/21 13:29 Troponin T 120 Minute 30.88 ng/L (0-10) H 12/22/21 15:19 Delta Troponin T -6.12 ABS# (0-10) L 12/22/21 15:19 Troponin T Hi Sens 6Hr 27.67 ng/L (0-10) H 12/22/21 19:53 Troponin T Hi Sens 6Hr Delta -9.33 ng/L (0-12) L 12/22/21 19:53 Total Protein 7.5 g/dL (6.6-8.7) 12/22/21 13:29 Albumin 3.0 g/dL (3.5-5.2) L 12/23/21 13:45 Globulin 3.7 g/dL (1.3-4.6) 12/22/21 13:29 Procalcitonin 0.34 ng/mL (0-0.5) 12/22/21 13:29 TSH 0.47 uIU/mL (0.27-4.20) 12/22/21 15:19 Urine Color Straw (Yellow) 12/22/21 16:25 Urine Appearance Clear (CLEAR) 12/22/21 16:25 Urine pH 7 (5-7) 12/22/21 16:25 Ur Specific [place] 1.005 (1.005-1.030) 12/22/21 16:25 Urine Protein Neg (Negative) 12/22/21 16:25 Urine Glucose (UA) Norm (Normal) 12/22/21 16:25 Urine Ketones Negative (Negative) 12/22/21 16:25 Urine Blood 2+ (Negative) H 12/22/21 16:25 Urine Nitrate Negative (Negative) 12/22/21 16:25 Urine Bilirubin Neg (Negative) 12/22/21 16:25 Urine Urobilinogen Norm mg/dL (Negative) 12/22/21 16:25 Ur Leukocyte Esterase Trace (Negative) H 12/22/21 16:25 Urine RBC 5-10 /hpf (0-2) H 12/22/21 16:25 Urine WBC 0-4 /hpf (0-5) H 12/22/21 16:25 Ur Squamous Epith Cells 0-4 /hpf (0-5) H 12/22/21 16:25 Amorphous Sediment Not Reportable 12/22/21 16:25 Urine Bacteria Trace /hpf (NONE) 12/22/21 16:25 Salicylates < 0.3 mg/dL (3-10) L 12/22/21 13:29 Urine Opiates Screen Negative ng/mL (Negative) 12/22/21 16:25 Ur Barbiturates Screen Negative ng/mL (Negative) 12/22/21 16:25 Ur Phencyclidine Scrn Negative ng/mL (Negative) 12/22/21 16:25 Ur Amphetamines Screen Negative ng/mL (Negative) 12/22/21 16:25 U Benzodiazepines Scrn Negative ng/mL (Negative) 12/22/21 16:25 Urine Cocaine Screen Negative ng/mL (Negative) 12/22/21 16:25 U Marijuana (THC) Screen Negative ng/mL (Negative) 12/22/21 16:25 Procedures Performed None Vitals Last Vital Signs Temp 97.6 F 12/23/21 04:35 Pulse 82 12/23/21 14:00 Resp 13 12/23/21 04:35 BP 117/45 12/23/21 04:35 Pulse Ox 97 12/23/21 08:10 O2 Del Method 12/23/21 08:10 Discharge Plan Discharge Patient Disposition: Home Condition: Stable Prescriptions: Continued (DME) ostomy wipes See Rx Instructions .Route .MEDSUPPLY Qty: 100 0RF Rx Instructions: As directed (DME) [facility] Joint Brace See Rx Instructions .ROUTE .MEDSUPPLY Qty: 1 0RF Rx Instructions: As directed (DME) VELCRO WRIST BRACE See Rx Instructions .Route .MEDSUPPLY Qty: 1 0RF Rx Instructions: As directed acetaminophen [Tylenol Extra Strength] 500 mg Tablet 1,000 mg PO Q6H PRN (Reason: Pain) pantoprazole 20 mg tablet,delayed release (DR/EC) 20 mg PO DAILY promethazine 25 mg tablet 25 mg PO TID PRN (Reason: Nausea) hydrocodone-acetaminophen 5-325 mg tablet 1 tab PO Q6H PRN (Reason: pain) Qty: 14 0RF tramadol 50 mg tablet 50 mg PO Q6H PRN (Reason: pain) 7 Days Qty: 28 0RF aspirin 81 mg Tablet,Delayed Release (Dr/Ec) 81 mg PO BID atorvastatin 20 mg tablet 20 mg PO BEDTIME Qty: 30 0RF gabapentin 400 mg Capsule 800 mg PO TID Qty: 90 0RF bumetanide 2 mg Tablet 2 mg PO DAILY calcium carbonate-vitamin D3 600 mg-5 mcg (200 unit) Tablet 1 tab PO BID warfarin 1 mg tablet See Rx Instructions .ROUTE .COMPLEX Rx Instructions: 1 mg orally everyday and 2 mg on Thursday, Thursday, & Thursday Discharge Orders: Discharge Order (Routine); Ordered 12/23/21 Ordered By: Adeel Jonas Referrals: Tracy Jiang DO [Primary Care Provider] - [facility] Discharge Diet: Usual diet Discharge Activity: Resume usual activity Patient Instructions: A-fib (Atrial Fibrillation) (DC), Chest Pain (DC), Acute Kidney Injury (DC), Opioid Safety Plan of Treatment: Follow up with primary care provider in 1-2 weeks. Discharge Attestations Time Spent in Discharge Care*: greater than 30 min Status at Discharge: Overall status at discharge: patient is back to baseline Quality Metrics Clinical Quality Measures [ No reported AMI, CVA or VTE this stay] Coding Level of Care Code Acute Chg FW DC note Diagnoses Acute kidney injury N17.9 Severe protein-calorie malnutrition E43 Chronic anemia D64.9 BMI less than 19,adult Z68.1 Hypokalemia E87.6 Atrial fibrillation I48.91 Chest pain R07.9 Hypotension I95.9 Hypomagnesemia E83.42 Chronic kidney disease N18.9 Time Spent (min) 40
== END 2021-12-23 15:45 | disposition home or self-care (01) ==
LOC: ER 18:23 → ICU 18:54
PROVIDERS: Internal Medicine; Admitting Provider Family Medicine; Emergency Provider Emergency Medicine; PCP Family Medicine; Visit Provider Internal Medicine
DX: N17.9 Acute kidney failure, unspecified (principal); N18.30 Chronic kidney disease, stage 3 unspecified; D64.9 Anemia, unspecified; E87.6 Hypokalemia; E43 Unspecified severe protein-calorie malnutrition; Z68.1 Body mass index [BMI] 19.9 or less, adult; I50.20 Unspecified systolic (congestive) heart failure; R07.9 Chest pain, unspecified; N39.0 Urinary tract infection, site not specified; I95.9 Hypotension, unspecified; E83.42 Hypomagnesemia; Z99.2 Dependence on renal dialysis; I48.0 Paroxysmal atrial fibrillation; Z79.01 Long term (current) use of anticoagulants; K50.90 Crohn's disease, unspecified, without complications; Z90.49 Acquired absence of other specified parts of digestive tract; I25.10 Atherosclerotic heart disease of native coronary artery without angina pectoris; Z86.14 Personal history of Methicillin resistant Staphylococcus aureus infection; M19.90 Unspecified osteoarthritis, unspecified site; M81.0 Age-related osteoporosis without current pathological fracture
CPT/HCPCS: 71045; 71250; 80048; 80053; 80069; 80306; 80307; 81001; 82550; 83605; 83735; 84100; 84145; 84443; 84484; 85025; 85378; 85610; 87040; 87086; 87150; 87205; 93005; 93306; 96365; 96367; 96375; 99285; G0378; J0743; J3475; J3480; J7030; J7120

== ENCOUNTER 2022-01-02 15:42 | Observation (INO) | payer MEDICARE, SELFPAY ==
[2022-01-02] VITALS (45 sets, daily range): BP systolic 84–128; BP diastolic 47–87; PULSE 54–113; RESP 7–37; TEMP 36.3–37.1; O2SAT 82–100; BMI 14.4; BMI 15.3
--- NOTE | 2022-01-02 16:06 | XRR_ITS ---
PROCEDURE INFORMATION: Exam: XR Chest Exam date and time: 01/02/2022 4:18 PM Age: 71 years old Clinical indication: Other: Weakness; Patient HX: Shaking, nausea TECHNIQUE: Imaging protocol: Radiologic exam of the chest. Views: 1 view. COMPARISON: CT chest con [id number] 12/22/2021 2:53 PM FINDINGS: Tubes, catheters and devices: Right-sided Port-A-Cath. Lungs: Emphysematous changes. Biapical pleuroparenchymal calcification and fibrosis. Pleural spaces: Unremarkable. No pleural effusion. No pneumothorax. Heart/Mediastinum: Unremarkable. No cardiomegaly. Bones/joints: Unremarkable. Soft tissues: Probable somewhat symmetric nipple shadows, somewhat more prominent on the right. XR/XR chest 1V portable [id number] IMPRESSION: 1. Negative for infiltrate. 2. Probable somewhat symmetric nipple shadows, somewhat more prominent on the right. 3. Emphysematous changes. 4. Biapical pleuroparenchymal calcification and fibrosis. 5. Right-sided Port-A-Cath.
--- NOTE | 2022-01-02 16:08 | ECG_ITS ---
[facility] Test Date: 2022-01-02 Pat Name: Janene Gallegos Department: Room: Gender: Female Director Meetings: : 1950 Requested By: Eusebio Gee Order Number: [id number] Santino MD: Sara Arango M.D. Measurements Intervals [place] Rate: 96 P: 74 DC: 148 QRS: 34 QRSD: 80 T: 67 QT: 376 QTc: 477 Interpretive Statements SINUS RHYTHM WITH FREQUENT VENTRICULAR PREMATURE COMPLEXES LEFT ATRIAL ENLARGEMENT [-0.15mV P-WAVE IN V1/V2] INDETERMINATE AXIS POSSIBLE RIGHT VENTRICULAR CONDUCTION DELAY [RSR (QR) IN V1/V2] Compared to ECG 12/22/2021 15:34:59 Indeterminate axis now present Electronically Signed On 01-03-2022 11:51:06 CDT by Sara Arango M.D. [email or web address].[email or web address]/store/OM/[id number]
--- NOTE | 2022-01-02 16:25 | ED_ITS ---
HPI - Weakness General: Chief complaint: Weakness Stated complaint: Shaky, dizzy, nausea Time Seen by Provider: 01/02/22 16:20 History of Present Illness: Ms. Gallegos is a 71-year-old lady with history of ileostomy, CKD, chronic anemia, severe protein calorie malnutrition, atrial fibrillation presenting to the emergency department due to generalized weakness. She reports symptom onset yesterday associated with lightheaded feeling and some nausea. Symptoms worsened today and she feels generalized weakness. She has noticed some chest discomfort associated with a palpitation sensation. Chronic shortness of breath is not worse and no evidence of worsening cough. Intensity symptoms is moderate to severe. Course is worsened. No other specific changes in health, exacerbating, or alleviating factors identified. Duration: progressively worsening Location: generalized Quality: other Exacerbating factors: exertion Review of Systems General: Reports: 10 or more systems reviewed and unremarkable except in HPI and below PFSH ED PFSH: Medical History Atrial fibrillation not chronic Autonomic neuropathy BMI less than 19,adult Chronic anemia mixed B12 and iron deficiency 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 Baseline creatinine in 2020 records here 2.0-4.0. Has required hemodialysis in past during times of acute illness. Follows with Dr Benz. Creatinine has been as high as 17 in setting of severe pre-renal azotemia. COVID-19 (~10/2019) Crohn's disease s/p total colectomy (1980) with ileostomy (2002) Distal radius fracture, right History of MRSA infection History of pelvic fracture Hyperaldosteronism At at least one point in time felt secondary to aldactone rather than primary Hyperlipidemia Hypersomnia Hypertrophy of bone of hand Hypokalemia chronically on IV infusions of potassium and magnesium Hypomagnesemia chronic Local infection due to Port-A-Cath (~2019) Myocardial infarction (lateral wall) Appears to have been identified during a prolonged hospital stay and possibly type II process. Had not required cardiac intervention. Osteoarthritis Osteoporosis Peripheral neuropathy Raynauds syndrome Severe protein-calorie malnutrition Short gut syndrome Stage III pressure ulcer Systolic congestive heart failure Diagnosed in 04/2019 at [facility] during a time of prolonged hospital care. Multiple echocardiograms show preserved EF 50-60% since that time. Appears to have been a transient issue related to acute medical issues at that time. Ventricular tachycardia (paroxysmal) related to electrolyte abnormalities Vitamin B12 deficiency Surgical History H/O ileostomy (~2002) H/O total colectomy (~2002) History of arthrodesis (08/03/18) right index finger History of delivery x4 History of hernia repair History of right hip replacement (~08/2019) History of tubal ligation Hx of appendectomy Port-A-Cath in place (10/12/19) right IJ Status post open reduction and internal fixation (ORIF) of fracture (12/22/19) left radius, Irina Status post open reduction and internal fixation (ORIF) of fracture (11/2019) right humerus, Irina Status post open reduction and internal fixation (ORIF) of fracture right hip Family History Other CAD (coronary artery disease) Cancer Congestive heart failure Diabetes Hyperlipidemia Social History Smoking and tobacco status: never smoked Second hand smoke exposure: No Alcohol intake: never Current occupational status: retired Physical Exam Const: COMMON NORMALS: alert GENERAL APPEARANCE: cooperative, well developed and frail appearing NUTRITIONAL APPEARANCE: underweight HENMT: COMMON NORMALS: normocephalic and atraumatic HEAD & SCALP: normocephalic and atraumatic Eye: COMMON NORMALS: conjunctivae normal CONJUNCTIVA: Yes conjunctivae normal SCLERA: sclerae normal Neck/C-Spine: COMMON NORMALS: supple GENERAL: Yes trachea midline Resp: COMMON NORMALS: clear to auscultation bilaterally EFFORT & INSPECTION: Yes able to speak in complete sentences AUSCULTATION: clear to auscultation bilaterally Cardio: COMMON NORMALS: regular rate RATE: regular rate RHYTHM: abnormal rhythm GI: COMMON NORMALS: Soft to palpation PALPATION: Yes Soft to palpation and No Tenderness to palpation present (GI) Extremity: GENERAL: Yes normal exam except as noted and No edema Neuro: COMMON NORMALS: moves all extremities SENSORIUM/ORIENTATION: Yes alert and No Orientation impaired Psych: COMMON NORMALS: mental status grossly normal and Normal thought process present THOUGHT PROCESS: Normal thought process present Course Vital Signs: Vital signs: Vital Signs Temperature 97.5 F L 01/04/22 11:15 Pulse Rate 84 01/04/22 11:15 Respiratory Rate 16 01/04/22 11:15 Blood Pressure 95/52 01/04/22 11:15 Pulse Oximetry 96 01/04/22 11:15 Oxygen Delivery Me thod 01/04/22 11:15 MDM - Weakness Medical Decision Making 71-year-old lady presenting with generalized illness and increasing shortness of breath with nausea and dizziness. Patient is nontoxic on exam with no focal neurologic deficits appreciated. EKG notable for sinus rhythm with nonspecific ST segment abnormalities and frequent PVCs including couplets. Labs notable for no leukocytosis, normocytic anemia present. Metabolic panel with hypokalemia and continued creatinine elevation. Magnesium is significantly low. Delta troponin negative. No UTI. Chest x-ray with no lobar consolidation or pneumothorax, overall similar to prior. Fluids, antiemetic, electrolyte replenishment given. Given electrolyte derangements with associated symptoms including EKG abnormalities it is reasonable to admit the patient to observation for further electrolyte replenishment and optimization of underlying medical conditions. The results of ED evaluation were discussed with the patient including plan for admission due to requirement for level of care not available if discharged to prevent significant worsening/deterioration. Patient agreeable with plan. Discussed with hospitalist service who was agreeable to admit the patient to observation. Medical Records I reviewed the patient's medical records. Lab Data I reviewed the patient's lab results. : 01/04/22 04:03 01/04/22 04:03 Radiology Impressions Chest X-Ray 01/02/22 16:06 IMPRESSION: 1. Negative for infiltrate. 2. Probable somewhat symmetric nipple shadows, somewhat more prominent on the right. 3. Emphysematous changes. 4. Biapical pleuroparenchymal calcification and fibrosis. 5. Right-sided Port-A-Cath. Laboratory Results WBC 7.4 10^3/uL (4.0-10.0) 01/02/22 17:10 RBC 2.84 10^6/uL (4.1-5.3) L 01/02/22 17:10 Hgb 9.1 g/dL (11.5-15.3) L 01/02/22 17:10 Hct 28.0 % (37.0-47.0) L 01/02/22 17:10 MCV 98.6 fl (81-99) 01/02/22 17:10 MCH 32.0 pg (28.0-34.0) 01/02/22 17:10 MCHC 32.5 g/dL (30.0-36.0) 01/02/22 17:10 RDW 14.3 % (12.1-15.1) 01/02/22 17:10 Plt Count 231 10^3/cmm (130-400) 01/02/22 17:10 MPV 11.4 fL (7.4-10.4) H 01/02/22 17:10 Neut % (Auto) 62.2 % 01/02/22 17:10 Lymph % (Auto) 22.9 % 01/02/22 17:10 [place] % (Auto) 10.6 % 01/02/22 17:10 Eos % (Auto) 3.1 % 01/02/22 17:10 Baso % (Auto) 0.8 % 01/02/22 17:10 Neut # (Auto) 4.58 10^3/uL (1.8-7.7) 01/02/22 17:10 Lymph # (Auto) 1.7 10^3/uL (0.8-4.8) 01/02/22 17:10 [place] # (Auto) 0.8 10^3/uL (0.2-0.9) 01/02/22 17:10 Eos # (Auto) 0.2 10^3/uL (0.0-0.8) 01/02/22 17:10 Baso # (Auto) 0.1 10^3/uL (0.0-0.1) 01/02/22 17:10 Nucleated RBC % (auto) 0 % 01/02/22 17:10 Nucleated RBCs # 0.0 /100WBC 01/02/22 17:10 PT 17.70 SECONDS (12.1-14.9) H 01/02/22 17:10 INR 1.42 (0.8-1.2) H 01/02/22 17:10 Sodium 137 mmol/L (136-145) 01/02/22 17:10 Potassium 2.8 mmol/L (3.5-5.1) L* 01/02/22 17:10 Chloride 83 mmol/L (98-107) L 01/02/22 17:10 Carbon Dioxide 41 mmol/L (22-29) H 01/02/22 17:10 Anion Gap 15.8 (5-19) 01/02/22 17:10 BUN 36 mg/dL (8-23) H 01/02/22 17:10 Creatinine 3.9 mg/dL (0.5-0.9) H 01/02/22 17:10 GFR Calculation Not Reportable 01/02/22 17:10 Glucose 88 mg/dL (65-115) 01/02/22 17:10 Calculated Osmolality 292 mOsm/kg (285-295) 01/02/22 17:10 Calcium 9.1 mg/dL (8.5-10.5) 01/02/22 17:10 Magnesium 1.1 mg/dL (1.7-2.3) L 01/02/22 17:10 Total Bilirubin 0.6 mg/dL (0.15-1.2) 01/02/22 17:10 AST 28 U/L (0-32) 01/02/22 17:10 ALT 16 U/L (0-33) 01/02/22 17:10 Alkaline Phosphatase 138 U/L (35-105) H 01/02/22 17:10 Troponin T Baseline 26 ng/L (0-10) H 01/02/22 17:10 NT-Pro-B Natriuret Pep 2711 pg/mL (0-125) H 01/02/22 17:10 Total Protein 6.7 g/dL (6.6-8.7) 01/02/22 17:10 Albumin 4.1 g/dL (3.5-5.2) 01/02/22 17:10 Globulin 2.6 g/dL (1.3-4.6) 01/02/22 17:10 Urine Color Yellow (Yellow) 01/02/22 19:05 Urine Appearance Clear (CLEAR) 01/02/22 19:05 Urine pH 9 (5-7) H 01/02/22 19:05 Ur Specific [place] 1.010 (1.005-1.030) 01/02/22 19:05 Urine Protein Neg (Negative) 01/02/22 19:05 Urine Glucose (UA) Norm (Normal) 01/02/22 19:05 Urine Ketones Negative (Negative) 01/02/22 19:05 Urine Blood Neg (Negative) 01/02/22 19:05 Urine Nitrate Negative (Negative) 01/02/22 19:05 Urine Bilirubin Neg (Negative) 01/02/22 19:05 Prot Sulfosalicylic Acd Negative (Negative) 01/02/22 19:05 Urine Urobilinogen Norm mg/dL (Negative) 01/02/22 19:05 Ur Leukocyte Esterase Negative (Negative) 01/02/22 19:05 Influenza Type A Ag negative (Negative) 01/02/22 16:53 Influenza Type B Ag negative (Negative) 01/02/22 16:53 SARS-CoV-2 Ag (Rapid) negative (Negative) 01/02/22 16:53 Discharge Plan Discharge Patient Disposition: Placed in Observation Admit Provider: Teresa France Clinical Impression: Acute kidney injury superimposed on CKD, Hypomagnesemia, Severe protein-calorie malnutrition, Hypokalemia, S/P ileostomy Discharge Diet: Cardiac Discharge Activity: Resume usual activity Coding Level of Care Code ED Care Director Rn for Chg Fwd Exam Comprehensive
[2022-01-02] MEDS: sodium chloride 0.9% 500 ML 999 ML IV (17:15)
[2022-01-02] MEDS: ondansetron 2 mg/ML SDV 2 mL 4 MG IVP (17:15)
[2022-01-02 17:16] LABS: Basophils # 0.1 10^3/uL (0.0-0.1); Basophils % 0.8 %; Eosinophils # 0.2 10^3/uL (0.0-0.8); Eosinophils % 3.1 %; Hemoglobin 9.1 g/dL (11.5-15.3); Lymphocytes # 1.7 10^3/uL (0.8-4.8); Lymphocytes % 22.9 %; Mean Corpuscular HGB Conc 32.5 g/dL (30.0-36.0); Mean Corpuscular Volume 98.6 fl (81-99); Mean Platelet Volume 11.4 fL (7.4-10.4); Monocytes # 0.8 10^3/uL (0.2-0.9); Monocytes % 10.6 %; Neutrophils # 4.58 10^3/uL (1.8-7.7); Neutrophils % 62.2 %; Nucleated Red Blood Cells % 0 %; Platelet Count 231 10^3/cmm (130-400); Red Blood Count 2.84 10^6/uL (4.1-5.3); Red Cell Distribution Width 14.3 % (12.1-15.1); White Blood Count 7.4 10^3/uL (4.0-10.0)
[2022-01-02 17:24] LABS: Influenza A by IFA negative (Negative); Influenza B by IFA negative (Negative); SARS Covid-2 Antigen negative (Negative)
[2022-01-02 17:32] LABS: INR 1.42 (0.8-1.2)
[2022-01-02 17:53] LABS: Troponin(5th) Baseline 26 ng/L (0-10)
[2022-01-02 18:01] LABS: Alanine Aminotransferase 16 U/L (0-33); Albumin Level 4.1 g/dL (3.5-5.2); Alkaline Phosphatase 138 U/L (35-105); Anion Gap 15.8 (5-19); Aspartate Amino Transferase 28 U/L (0-32); Blood Urea Nitrogen 36 mg/dL (8-23); Calcium 9.1 mg/dL (8.5-10.5); Chloride 83 mmol/L (98-107); Globulin 2.6 g/dL (1.3-4.6); Glucose 88 mg/dL (65-115); Magnesium 1.1 mg/dL (1.7-2.3); NT Pro B Type Natriuretic Pept 2711 pg/mL (0-125); Osmolality Calculated 292 mOsm/kg (285-295); Sodium 137 mmol/L (136-145); Total Bilirubin 0.6 mg/dL (0.15-1.2); Total Protein 6.7 g/dL (6.6-8.7)
[2022-01-02 18:07] LABS: Carbon Dioxide 41 mmol/L (22-29); Potassium 2.8 mmol/L (3.5-5.1)
--- NOTE | 2022-01-02 18:09 | PC.NURSE ---
Addendum entered by Issa Ty RN 01/02/22 18:09: to dr. keenan verbalized understanding no further orders. Original Note: reported potassium of 2.8 and co2 of 41.
--- NOTE | 2022-01-02 18:15 | ECG_ITS ---
[facility] Test Date: 2022-01-02 Pat Name: Janene Gallegos Department: Room: Gender: Female Deicer Inspector Pneumatic: : 1950 Requested By: Quinn Xiong Order Number: [id number] Santino MD: Sara Arango M.D. Measurements Intervals [place] Rate: 89 P: RI: QRS: 67 QRSD: 93 T: 71 QT: 415 QTc: 508 Interpretive Statements SINUS RHYTHM WITH FREQUENT VENTRICULAR PREMATURE COMPLEXES INCOMPLETE RIGHT BUNDLE BRANCH BLOCK Compared to ECG 01/02/2022 16:13:22 Aberrant conduction of supraventricular beat(s) now present Incomplete right bundle-branch block now present Atrial abnormality no longer present Indeterminate axis no longer present Electronically Signed On 01-03-2022 18:15:04 CDT by Sara Arango M.D. [id number]
[2022-01-02] MEDS: potassium chloride ER 20 mEq Tablet 40 MEQ PO (18:25)
[2022-01-02] MEDS: magnesium sulfate premix 4 GM/100 ML PREMIX IV (18:27)
[2022-01-02] MEDS: potassium chloride premix 100 ML 50 MEQ IV (18:28)
[2022-01-02 19:10] LABS: Add Urine Microscopic? NO; Charge for UA Resulting for Rev
[2022-01-02 19:28] LABS: Bilirubin Urine Neg (Negative); Blood Urine Neg (Negative); Glucose Urine UA Norm (Normal); Ketones Urine Negative (Negative); Leukocyte Esterase Urine Negative (Negative); Nitrate Urine Negative (Negative); Protein Urine Neg (Negative); Sulfosalicylic Acid Urine Negative (Negative); Urine Appearance Clear (CLEAR); Urine Color Yellow (Yellow); Urobilinogen Urine Norm (Negative); pH Urine 9 (5-7)
--- NOTE | 2022-01-02 20:04 | PC.NURSE ---
report called to JAEL Leblanc.
[2022-01-02 20:37] LABS: Troponin 5 2HR 23.31 ng/L (0-10)
[2022-01-02 20:42] LABS: Troponin 5 2HR Delta -2.69 ABS# (0-10)
--- NOTE | 2022-01-02 22:26 | ECG_ITS ---
[facility] Test Date: 2022-01-02 Pat Name: Janene Gallegos Department: Room: 258 Gender: Female Summer Camp Counselor: : 1950 Requested By: Quinn Xiong Order Number: [id number] Santino MD: Sara Arango M.D. Measurements Intervals [place] Rate: 74 P: 78 IL: 143 QRS: 76 QRSD: 89 T: 79 QT: 449 QTc: 501 Interpretive Statements SINUS RHYTHM WITH FREQUENT VENTRICULAR PREMATURE COMPLEXES LEFT ATRIAL ENLARGEMENT [-0.15mV P-WAVE IN V1/V2] POSSIBLE RIGHT VENTRICULAR CONDUCTION DELAY [RSR (QR) IN V1/V2] PROLONGED QT INTERVAL Compared to ECG 01/02/2022 18:15:12 Atrial abnormality now present Prolonged QT interval now present Atrial fibrillation no longer present Aberrant conduction of supraventricular beat(s) no longer present Incomplete right bundle-branch block no longer present Electronically Signed On 01-03-2022 11:53:46 CDT by Sara Arango M.D. [id number]
[2022-01-02 23:53] LABS: Troponin 5 6HR 23.46 ng/L (0-10)
[2022-01-02 23:54] LABS: Troponin 5 6HR Delta -2.54 ng/L (0-12)
[2022-01-03] VITALS (7 sets, daily range): BP systolic 84–110; BP diastolic 44–63; PULSE 75–102; RESP 16–18; TEMP 36.4–36.9; O2SAT 95–97
[2022-01-03] MEDS: warfarin 2 mg Tablet PO ×2 (00:05→13:50)
--- NOTE | 2022-01-03 02:01 | PM.HP ---
Providers/Chief Complaint Admitting Physician: Teresa France MD Primary Care Provider: Tracy Jiang DO Chief Complaint: Shaky, dizzy, nausea History of Present Illness Janene Gallegos is a 71 year old female with a past medical history significant for paroxysmal atrial fibrillation on Coumadin, Crohn's disease with history of total colectomy in 1980 and ileostomy in 2002 with subsequent short gut syndrome, severe protein calorie malnutrition, and hypokalemia. She presented to the Er today with generalized weakness, malaise. She was found to have hypokalemia and hypomagnesemia for which she received 4 g IV magnesium infusion in the emergency room and received 40 mg p.o. Lasix and is currently on IV potassium supplementation. She denies any current chest pain dyspnea palpitations or syncope. She is resting comfortably. No recent increase or change in her ileostomy output. She is known to have chronic kidney disease, creatinine is currently at her baseline. Review of Systems General: Reports: 10 or more systems reviewed and unremarkable except in HPI and below Const: Denies: fever(s), chills or body aches Eyes: Denies: change in vision, blurry vision or photophobia ENMT: Reports: hoarseness; Denies: throat pain, enlarged tonsils, odynophagia or nasal congestion Card: Denies: chest pain, palpitations, irregular heart rhythm, edema, swelling of feet/ankles, lightheadedness, pre-syncope, dyspnea on exertion or orthopnea Resp: Denies: dyspnea, productive cough, non-productive cough, wheezing, stridor, pain on inspiration, change in phlegm color, hemoptysis or chest congestion GI: Denies: abdominal pain, nausea, vomiting, hematemesis, coffee ground emesis, dysphagia, heartburn, diarrhea, constipation, GI cramping, change in stool character, hematochezia or melena : Denies: flank pain, difficulty voiding, dysuria, urinary frequency, urinary urgency, urinary hesitancy or hematuria Musc: Denies: neck pain, back pain, extremity pain, joint swelling, joint warmth or deformity Neuro: Denies: headache(s), numbness in extremities, weakness in extremities, sensory changes, difficulty walking, frequent falls, dizziness, vertigo, behavioral changes, Slurred speech present or seizure-like activity Psych: Denies: anxiety, depression, suicidal ideation or homicidal ideation Endo: Denies: polyuria, polydipsia, tired all the time, cold intolerance or hot flashes Frankie/Lymph: Denies: easy bruising or easy bleeding Medications/Allergies Home Medications Medication Instructions Recorded Confirmed Last Taken Type acetaminophen 500 mg tablet 1,000 mg PO Q6H PRN Pain 04/30/20 12/31/21 10/09/21 History (Tylenol Extra Strength) [facility] Joint Brace #1 ea 05/08/20 12/31/21 10/09/21 Rx ostomy wipes #100 ea 10/25/20 12/31/21 10/09/21 Rx aspirin 81 mg tablet,delayed 81 mg PO BID 08/16/21 12/31/21 12/21/21 History release atorvastatin 20 mg tablet 20 mg PO BEDTIME #30 tabs 08/24/21 12/31/21 12/21/21 Rx gabapentin 400 mg capsule 800 mg PO TID #90 caps 08/24/21 12/31/21 12/22/21 Rx hydrocodone 5 mg-acetaminophen 325 1 tab PO Q6H PRN pain #14 tabs 10/28/21 12/31/21 11/05/21 Rx mg tablet pantoprazole 20 mg tablet,delayed 20 mg PO DAILY 10/28/21 12/31/21 12/21/21 History release promethazine 25 mg tablet 25 mg PO TID PRN Nausea 10/28/21 12/31/21 11/05/21 History tramadol 50 mg tablet 50 mg PO Q6H PRN pain 7 days #28 11/06/21 12/31/21 Unknown Rx tabs VELCRO WRIST BRACE #1 ea 11/21/21 12/31/21 Unknown Rx bumetanide 2 mg tablet 2 mg PO DAILY 12/22/21 12/31/21 12/21/21 History calcium carbonate 600 mg-vitamin 1 tab PO BID 12/22/21 12/31/21 12/21/21 History D3 5 mcg (200 unit) tablet warfarin 1 mg tablet See Rx Instructions .Route .COMPLEX 12/22/21 12/31/21 12/21/21 History Allergies Allergy/AdvReac Type Severity Reaction Status Date / Time amoxicillin Allergy ALGY-Hives Verified 12/31/21 08:02 cefazolin [From Ancef] Allergy ALGY-Rash Verified 12/31/21 08:02 cephalexin [From Keflex] Allergy ALGY-Rash Verified 12/31/21 08:02 codeine Allergy ALGY-Hives Verified 12/31/21 08:02 doxycycline Allergy ALGY-Hives Verified 12/31/21 08:02 erythromycin base Allergy ALGY-Hives Verified 12/31/21 08:02 [From E.E.S.] latex Allergy Unknown Verified 12/31/21 08:02 metoclopramide Allergy Unknown Verified 12/31/21 08:02 neomycin Allergy ALGY-Hives Verified 12/31/21 08:02 Penicillins Allergy ALGY-Hives Verified 12/31/21 08:02 polyethylene glycol Allergy ADR-Swelling Verified 12/31/21 08:02 of the Eye pregabalin [From Lyrica] Allergy ALGY-Swell Verified 12/31/21 08:02 Lip/Tongue/Throat prochlorperazine Allergy ALGY-Hives Verified 12/31/21 08:02 [From Compazine] propoxyphene [From Darvon] Allergy ALGY-Hives Verified 12/31/21 08:02 sapropterin Allergy ADR-Swelling Verified 12/31/21 08:02 [From Tetrahydrobiopterin of the Eye Di-HCL] scopolamine Allergy ALGY-Hives Verified 12/31/21 08:02 Sulfa (Sulfonamide Allergy ALGY-Hives Verified 12/31/21 08:02 Antibiotics) tegaserod [From Zelnorm] Allergy ALGY-Hives Verified 12/31/21 08:02 tetracycline Allergy ALGY-Hives Verified 12/31/21 08:02 tetrahydrozoline Allergy ADR-Swelling Verified 12/31/21 08:02 [From Visine] of the Eye PFSH Acute PFSH: Medical History Atrial fibrillation not chronic Autonomic neuropathy BMI less than 19,adult Chronic anemia mixed B12 and iron deficiency 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 Baseline creatinine in 2020 records here 2.0-4.0. Has required hemodialysis in past during times of acute illness. Follows with Dr Benz. Creatinine has been as high as 17 in setting of severe pre-renal azotemia. COVID-19 (~10/2019) Crohn's disease s/p total colectomy (1980) with ileostomy (2002) Distal radius fracture, right History of MRSA infection History of pelvic fracture Hyperaldosteronism At at least one point in time felt secondary to aldactone rather than primary Hyperlipidemia Hypersomnia Hypertrophy of bone of hand Hypokalemia chronically on IV infusions of potassium and magnesium Hypomagnesemia chronic Local infection due to Port-A-Cath (~2019) Myocardial infarction (lateral wall) Appears to have been identified during a prolonged hospital stay and possibly type II process. Had not required cardiac intervention. Osteoarthritis Osteoporosis Peripheral neuropathy Raynauds syndrome Severe protein-calorie malnutrition Short gut syndrome Stage III pressure ulcer Systolic congestive heart failure Diagnosed in 04/2019 at [facility] during a time of prolonged hospital care. Multiple echocardiograms show preserved EF 50-60% since that time. Appears to have been a transient issue related to acute medical issues at that time. Ventricular tachycardia (paroxysmal) related to electrolyte abnormalities Vitamin B12 deficiency Surgical History H/O ileostomy (~2002) H/O total colectomy (~2002) History of arthrodesis (08/03/18) right index finger History of delivery x4 History of hernia repair History of right hip replacement (~08/2019) History of tubal ligation Hx of appendectomy Port-A-Cath in place (10/12/19) right IJ Status post open reduction and internal fixation (ORIF) of fracture (12/22/19) left radius, Irina Status post open reduction and internal fixation (ORIF) of fracture (11/2019) right humerus, Irina Status post open reduction and internal fixation (ORIF) of fracture right hip Family History Other CAD (coronary artery disease) Cancer Congestive heart failure Diabetes Hyperlipidemia Social History Smoking and tobacco status: never smoked Second hand smoke exposure: No Alcohol intake: never Current occupational status: retired Vitals/I&O/Wt Last Vital Signs Temp 97.4 F L 01/02/22 23:48 Pulse 67 01/02/22 23:48 Resp 16 01/02/22 23:48 BP 105/53 01/02/22 23:48 Pulse Ox 98 01/02/22 23:48 O2 Del Method 01/02/22 23:48 01/02/22 01/02/22 01/03/22 14:59 22:59 06:59 Intake Total 700 / 700 Balance 700 / 700 Weight last 48 hrs Weight 38.102 kg Weight 35.834 kg Physical Exam Narrative: General: No acute distress, AO x3 HEENT: PERRLA, pupils bilaterally equal and reactive, pallors not present Chest: Normal vesicular breath sounds, no added sounds, equal good air entry bilaterally CVS: S1-S2 regular, no murmurs, no tachycardia, no gallops, no rubs Abdomen: Soft, Stomas in place Neuro: No focal deficits, no facial deformity, AO x3, power 5/5 in all limbs Data : 01/02/22 17:10 01/03/22 02:41 Micro: Microbiology 01/02/22 18:22 Blood Culture - Preliminary Blood SPECIMEN COLLECTED 01/02/22 18:24 Blood Culture - Preliminary Blood SPECIMEN COLLECTED A&P Assessment and plan (1) Hypomagnesemia: (2) Hypokalemia: (3) S/P ileostomy: Plan 71-year-old lady with absorption, short gut syndrome, Crohn's disease recurrent electrolyte deficiency requiring transfusions, chronic anemia, with Port-A-Cath in place, low BMI, anorexia, sacral decubitus ulcer, chronic kidney disease?currently admitted with generalized malaise, found to have hypokalemia and hypomagnesemia. She is received p.o. potassium and IV magnesium and potassium supplementation in the emergency room. We will recheck electrolytes with a.m. labs to ensure that both of these electrolyte abnormalities have resolved. She denies any current chest pain dyspnea or palpitations. Her systolic blood pressure today is ranging between 85 to 110 mmHg, per review of prior records she has had low systolic blood pressure in the 80s range even on prior visits. She used to be on midodrine in the past. Start midodrine 10 mg p.o. 3 times daily and monitor for response. She is currently asymptomatic, denies any dizziness. 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
[2022-01-03 03:17] LABS: Alanine Aminotransferase 19 U/L (0-33); Albumin Level 3.4 g/dL (3.5-5.2); Alkaline Phosphatase 123 U/L (35-105); Anion Gap 14.7 (5-19); Aspartate Amino Transferase 31 U/L (0-32); Blood Urea Nitrogen 35 mg/dL (8-23); Calcium 9.4 mg/dL (8.5-10.5); Carbon Dioxide 39 mmol/L (22-29); Chloride 91 mmol/L (98-107); Globulin 2.5 g/dL (1.3-4.6); Glucose 99 mg/dL (65-115); Osmolality Calculated 298 mOsm/kg (285-295); Potassium 4.7 mmol/L (3.5-5.1); Sodium 140 mmol/L (136-145); Total Bilirubin 0.4 mg/dL (0.15-1.2); Total Protein 5.9 g/dL (6.6-8.7)
[2022-01-03] MEDS: midodrine 5 mg TABLET 10 MG PO ×4 (07:25→20:04)
[2022-01-03] MEDS: aspirin 81 mg EC Tablet PO ×2 (07:26→16:31)
[2022-01-03] MEDS: pantoprazole DR 40 mg Tablet PO (07:26)
[2022-01-03] MEDS: sodium chloride 0.9% 1,000 ML 75 ML IV ×2 (08:48→22:15)
--- NOTE | 2022-01-03 10:40 | PC.CHAP ---
Pastoral Care Encounter/Spiritual Assessment Type of Contact [] Declined computer discovery teacher visit [] Patient/Family/Request visit [] Outpatient visit [] Follow-up visit [] Physician referral [] Code/Alert [x] Routine visit [] Staff referral [] Actively dying [] Patient sleeping [] Family support [] [x Out of room [] Palliative care [] [] Receiving care in room [] Pre-surgical visit [] Trauma [] Long length of stay [] ICU visit [] Other: Relational/Emotional Strength [] Patient feels connected with others/family/visitors/staff [] Distress [] Loneliness/isolation [] Abandonment Spirituality of Patient [] Person of Winter [] Attends Holiness of their Winter [] Believes in Prayer [] Reads Bible or Gnosticist materials [] There are Spiritual issues to be addressed Cruise Consultant Interventions [] Prayer [] Active listening [] Non-anxious presence [] Spiritual/emotional support [] Crisis/trauma care [] Spiritual counseling [] Bereavement support [] Provided bereavement packet [] Provided Bible/devotional materials [] Provided toy/stuffed animal, coloring book to patient or family member [] Provided Communion [] Anointing/[place] [] Salvation [] Completed spiritual assessment [] Other: Impact on Illness or Injury [] Angry [] Fearful [] Anxious [] Often cries [] Exhaustion [] Unable to work [] Unable to attend anglican [] Unable to walk/stand [] Unable to read [] Unable to drive [] Unable to eat/drink [] Unable to sleep [] Unable to be with family [] Patient intubated [] Other: Summary Time spent with patient
--- NOTE | 2022-01-03 12:53 | PM.PN ---
Subjective Subjective: Patient was seen this morning, she has no complaints, no lightheadedness, dizziness she tells that she is very hungry, no chest pain, no palpitations Vitals/I&O/Wt Last Vital Signs Temp 98.5 F 01/03/22 11:29 Pulse 89 01/03/22 11:29 Resp 18 01/03/22 11:29 BP 110/63 01/03/22 11:29 Pulse Ox 95 01/03/22 11:29 O2 Del Method 01/03/22 11:29 01/02/22 01/03/22 01/03/22 22:59 06:59 14:59 Intake Total 700 / 700 480 / 480 Output Total 0 / 0 300 / 300 Balance 700 / 700 -300 / 400 480 / 480 Weight last 48 hrs Weight 38.102 kg Weight 35.834 kg Physical Exam Const: COMMON NORMALS: no acute distress and patient oriented x3 Resp: COMMON NORMALS: normal respiratory effort, No retractions, No use of accessory muscles and clear to auscultation bilaterally AUSCULTATION: clear to auscultation bilaterally Cardio: COMMON NORMALS: regular rate, regular rhythm, S1 normal heart sound present and S2 normal heart sound present RATE: regular rate RHYTHM: regular rhythm HEART SOUNDS: S1 normal heart sound present and S2 normal heart sound present GI: COMMON NORMALS: Normal to inspection, nondistended, normoactive bowel sounds present, non-tender and no masses Extremity: COMMON NORMALS: no pedal edema Neuro: COMMON NORMALS: patient oriented x3 Psych: COMMON NORMALS: mental status grossly normal Data : 01/02/22 17:10 01/03/22 02:41 Micro: Microbiology 01/02/22 18:22 Blood Culture - Preliminary Blood SPECIMEN COLLECTED 01/02/22 18:24 Blood Culture - Preliminary Blood SPECIMEN COLLECTED A&P Assessment and plan (1) Hypomagnesemia: (2) Hypokalemia: (3) S/P ileostomy: Plan 71-year-old lady with absorption, short gut syndrome, Crohn's disease recurrent electrolyte deficiency requiring transfusions, chronic anemia, with Port-A-Cath in place, low BMI, anorexia, sacral decubitus ulcer, chronic kidney disease?currently admitted with generalized malaise, found to have hypokalemia and hypomagnesemia. She is received p.o. potassium and IV magnesium and potassium supplementation in the emergency room. Monitor electrolytes She denies any current chest pain dyspnea or palpitations. Her systolic blood pressure today is ranging between 85 to 110 mmHg, per review of prior records she has had low systolic blood pressure in the 80s range even on prior visits. She used to be on midodrine in the past. Start midodrine 10 mg p.o. 3 times daily and monitor for response. She is currently asymptomatic, denies any dizziness. 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
[2022-01-03] MEDS: atorvastatin 40 mg Tablet 20 MG PO (20:04)
[2022-01-04 00:19] VITALS: BP 107/69; PULSE 77; RESP 14; TEMP 36.4; O2SAT 96
[2022-01-04 04:44] LABS: Basophils # 0.1 10^3/uL (0.0-0.1); Basophils % 1.2 %; Eosinophils # 0.5 10^3/uL (0.0-0.8); Eosinophils % 7.5 %; Hematocrit 28.1 % (37.0-47.0); Hemoglobin 8.6 g/dL (11.5-15.3); Lymphocytes # 1.5 10^3/uL (0.8-4.8); Lymphocytes % 25.1 %; Mean Corpuscular HGB Conc 30.6 g/dL (30.0-36.0); Mean Corpuscular Hemoglobin 31.7 pg (28.0-34.0); Mean Corpuscular Volume 103.7 fl (81-99); Mean Platelet Volume 11.6 fL (7.4-10.4); Monocytes # 0.6 10^3/uL (0.2-0.9); Monocytes % 9.6 %; Neutrophils % 56.4 %; Nucleated Red Blood Cells % 0 %; Platelet Count 224 10^3/cmm (130-400); Red Blood Count 2.71 10^6/uL (4.1-5.3); Red Cell Distribution Width 14.3 % (12.1-15.1)
[2022-01-04 04:51] VITALS: BP 91/50; PULSE 45; RESP 16; TEMP 36.4; O2SAT 97
[2022-01-04 04:55] LABS: INR 1.51 (0.8-1.2)
[2022-01-04 05:06] LABS: Alanine Aminotransferase 23 U/L (0-33); Albumin Level 3.2 g/dL (3.5-5.2); Alkaline Phosphatase 120 U/L (35-105); Anion Gap 13.5 (5-19); Aspartate Amino Transferase 33 U/L (0-32); Blood Urea Nitrogen 27 mg/dL (8-23); Carbon Dioxide 36 mmol/L (22-29); Chloride 95 mmol/L (98-107); Globulin 2.5 g/dL (1.3-4.6); Glucose 87 mg/dL (65-115); Magnesium 1.9 mg/dL (1.7-2.3); Osmolality Calculated 296 mOsm/kg (285-295); Phosphorus 2.6 mg/dL (2.5-4.5); Potassium 3.5 mmol/L (3.5-5.1); Sodium 141 mmol/L (136-145); Total Bilirubin 0.3 mg/dL (0.15-1.2); Total Protein 5.7 g/dL (6.6-8.7)
[2022-01-04 05:22] VITALS: PULSE 72
[2022-01-04 07:37] VITALS: BP 88/48; PULSE 82; RESP 14; TEMP 36.4; O2SAT 95
[2022-01-04] MEDS: midodrine 5 mg TABLET 10 MG PO (08:00)
[2022-01-04] MEDS: aspirin 81 mg EC Tablet PO (08:01)
[2022-01-04] MEDS: pantoprazole DR 40 mg Tablet PO (08:01)
[2022-01-04] MEDS: magnesium sulfate premix 2 GM/50 ML PIGGYBACK IV (09:21)
--- NOTE | 2022-01-04 10:34 | P.DS_ITS ---
Discharge Providers Date of Admission: 01/02/22 19:16 Date of Discharge: January 04, 2022 Attending Provider at Admission: Teresa France MD Attending Provider at Discharge: Cody Johns MD Primary Care Provider: Tracy Jiang DO Diagnoses at Discharge Discharge Diagnosis (1) Hypomagnesemia: Status: Chronic Permanent problem details: chronic (2) Hypokalemia: Status: Chronic (3) S/P ileostomy: Status: Chronic Reason for Visit Reason for Visit: Shaky, dizzy, nausea Hospital Course Hospital Course Janene Gallegos is a 71 year old female with a past medical history significant for paroxysmal atrial fibrillation on Coumadin, Crohn's disease with history of total colectomy in 1980 and ileostomy in 2002 with subsequent short gut syndrome, severe protein calorie malnutrition, and hypokalemia. She presented to the Er today with generalized weakness, malaise.? She was found to have hypokalemia and hypomagnesemia for which she received 4 g IV magnesium infusion Patient was admitted to [facility] for hypokalemia, hypomagnesemia, low blood pressures, dehydration, fatigue, malaise. Patient received IV hydration, electrolyte replacement, midodrine, overall clinically she improved. I have discharged her with instructions to follow-up with her primary care provider on Thursday for recheck potassium, magnesium, discharged on low-dose midodrine 5 mg 3 times daily, follow-up with primary care provider for recheck blood pressure on Thursday. Physical Exam Const: COMMON NORMALS: no acute distress and patient oriented x3 Resp: COMMON NORMALS: normal respiratory effort, No retractions, No use of accessory muscles and clear to auscultation bilaterally AUSCULTATION: clear to auscultation bilaterally Cardio: COMMON NORMALS: regular rate, regular rhythm, S1 normal heart sound present and S2 normal heart sound present RATE: regular rate RHYTHM: regular rhythm HEART SOUNDS: S1 normal heart sound present and S2 normal heart sound present GI: COMMON NORMALS: Normal to inspection, nondistended, normoactive bowel sounds present, non-tender and no masses Extremity: COMMON NORMALS: no pedal edema Neuro: COMMON NORMALS: patient oriented x3 Psych: COMMON NORMALS: mental status grossly normal Discharge Data Studies Completed and Pending Completed Studies During Hospitalization Category Date Time Status XR chest 1V portable [id number] Stat Exams 01/02/22 16:06 Completed Pending at discharge Category Date Time Status Blood Culture Stat Lab 01/02/22 18:22 Results Complete Blood Count w/Auto AM LABS Lab 01/05/22 04:00 Ordered Complete Blood Count w/Auto AM LABS Lab 01/06/22 04:00 Ordered Comprehensive Metabolic Panel AM LABS Lab 01/05/22 04:00 Ordered Comprehensive Metabolic Panel AM LABS Lab 01/06/22 04:00 Ordered Magnesium AM LABS Lab 01/05/22 04:00 Ordered Magnesium AM LABS Lab 01/06/22 04:00 Ordered Phosphorus AM LABS Lab 01/05/22 04:00 Ordered Phosphorus AM LABS Lab 01/06/22 04:00 Ordered Prothrombin Time INR AM LABS Lab 01/05/22 04:00 Ordered Prothrombin Time INR AM LABS Lab 01/06/22 04:00 Ordered Radiology Impressions Chest X-Ray 01/02/22 16:06 IMPRESSION: 1. Negative for infiltrate. 2. Probable somewhat symmetric nipple shadows, somewhat more prominent on the right. 3. Emphysematous changes. 4. Biapical pleuroparenchymal calcification and fibrosis. 5. Right-sided Port-A-Cath. Laboratory Results WBC 6.0 10^3/uL (4.0-10.0) 01/04/22 04:03 RBC 2.71 10^6/uL (4.1-5.3) L 01/04/22 04:03 Hgb 8.6 g/dL (11.5-15.3) L 01/04/22 04:03 Hct 28.1 % (37.0-47.0) L 01/04/22 04:03 MCV 103.7 fl (81-99) H 01/04/22 04:03 MCH 31.7 pg (28.0-34.0) 01/04/22 04:03 MCHC 30.6 g/dL (30.0-36.0) 01/04/22 04:03 RDW 14.3 % (12.1-15.1) 01/04/22 04:03 Plt Count 224 10^3/cmm (130-400) 01/04/22 04:03 MPV 11.6 fL (7.4-10.4) H 01/04/22 04:03 Neut % (Auto) 56.4 % 01/04/22 04:03 Lymph % (Auto) 25.1 % 01/04/22 04:03 [place] % (Auto) 9.6 % 01/04/22 04:03 Eos % (Auto) 7.5 % 01/04/22 04:03 Baso % (Auto) 1.2 % 01/04/22 04:03 Neut # (Auto) 3.40 10^3/uL (1.8-7.7) 01/04/22 04:03 Lymph # (Auto) 1.5 10^3/uL (0.8-4.8) 01/04/22 04:03 [place] # (Auto) 0.6 10^3/uL (0.2-0.9) 01/04/22 04:03 Eos # (Auto) 0.5 10^3/uL (0.0-0.8) 01/04/22 04:03 Baso # (Auto) 0.1 10^3/uL (0.0-0.1) 01/04/22 04:03 Nucleated RBC % (auto) 0 % 01/04/22 04:03 Nucleated RBCs # 0.0 /100WBC 01/04/22 04:03 PT 18.60 SECONDS (12.1-14.9) H 01/04/22 04:03 INR 1.51 (0.8-1.2) H 01/04/22 04:03 Sodium 141 mmol/L (136-145) 01/04/22 04:03 Potassium 3.5 mmol/L (3.5-5.1) 01/04/22 04:03 Chloride 95 mmol/L (98-107) L 01/04/22 04:03 Carbon Dioxide 36 mmol/L (22-29) H 01/04/22 04:03 Anion Gap 13.5 (5-19) 01/04/22 04:03 BUN 27 mg/dL (8-23) H 01/04/22 04:03 Creatinine 3.0 mg/dL (0.5-0.9) H 01/04/22 04:03 GFR Calculation Not Reportable 01/04/22 04:03 Glucose 87 mg/dL (65-115) 01/04/22 04:03 Calculated Osmolality 296 mOsm/kg (285-295) H 01/04/22 04:03 Calcium 9.0 mg/dL (8.5-10.5) 01/04/22 04:03 Phosphorus 2.6 mg/dL (2.5-4.5) 01/04/22 04:03 Magnesium 1.9 mg/dL (1.7-2.3) 01/04/22 04:03 Total Bilirubin 0.3 mg/dL (0.15-1.2) 01/04/22 04:03 AST 33 U/L (0-32) H 01/04/22 04:03 ALT 23 U/L (0-33) 01/04/22 04:03 Alkaline Phosphatase 120 U/L (35-105) H 01/04/22 04:03 Troponin T Baseline 26 ng/L (0-10) H 01/02/22 17:10 Troponin T 120 Minute 23.31 ng/L (0-10) H 01/02/22 19:54 Delta Troponin T -2.69 ABS# (0-10) L 01/02/22 19:54 Troponin T Hi Sens 6Hr 23.46 ng/L (0-10) H 01/02/22 23:30 Troponin T Hi Sens 6Hr Delta -2.54 ng/L (0-12) L 01/02/22 23:30 NT-Pro-B Natriuret Pep 2711 pg/mL (0-125) H 01/02/22 17:10 Total Protein 5.7 g/dL (6.6-8.7) L 01/04/22 04:03 Albumin 3.2 g/dL (3.5-5.2) L 01/04/22 04:03 Globulin 2.5 g/dL (1.3-4.6) 01/04/22 04:03 Urine Color Yellow (Yellow) 01/02/22 19:05 Urine Appearance Clear (CLEAR) 01/02/22 19:05 Urine pH 9 (5-7) H 01/02/22 19:05 Ur Specific [place] 1.010 (1.005-1.030) 01/02/22 19:05 Urine Protein Neg (Negative) 01/02/22 19:05 Urine Glucose (UA) Norm (Normal) 01/02/22 19:05 Urine Ketones Negative (Negative) 01/02/22 19: Urine Blood Neg (Negative) 01/02/22 19:05 Urine Nitrate Negative (Negative) 01/02/22 19:05 Urine Bilirubin Neg (Negative) 01/02/22 19:05 Prot Sulfosalicylic Acd Negative (Negative) 01/02/22 19:05 Urine Urobilinogen Norm mg/dL (Negative) 01/02/22 19:05 Ur Leukocyte Esterase Negative (Negative) 01/02/22 19:05 Influenza Type A Ag negative (Negative) 01/02/22 16:53 Influenza Type B Ag negative (Negative) 01/02/22 16:53 SARS-CoV-2 Ag (Rapid) negative (Negative) 01/02/22 16:53 Vitals Last Vital Signs Temp 97.6 F 01/04/22 07:37 Pulse 82 01/04/22 07:37 Resp 14 01/04/22 07:37 BP 88/48 01/04/22 07:37 Pulse Ox 95 01/04/22 07:37 O2 Del Method 01/04/22 07:37 Discharge Plan Discharge Patient Disposition: Home Condition: Stable Prescriptions: New midodrine 5 mg Tablet 5 mg PO TID 30 Days Qty: 90 0RF Continued (DME) ostomy wipes See Rx Instructions .Route .MEDSUPPLY Qty: 100 0RF Rx Instructions: As directed (DME) CMC Joint Brace See Rx Instructions .ROUTE .MEDSUPPLY Qty: 1 0RF Rx Instructions: As directed (DME) VELCRO WRIST BRACE See Rx Instructions .Route .MEDSUPPLY Qty: 1 0RF Rx Instructions: As directed acetaminophen [Tylenol Extra Strength] 500 mg Tablet 1,000 mg PO Q6H PRN (Reason: Pain) pantoprazole 20 mg tablet,delayed release (DR/EC) 20 mg PO DAILY promethazine 25 mg tablet 25 mg PO BID tramadol 50 mg tablet 50 mg PO Q6H PRN (Reason: pain) 7 Days Qty: 28 0RF aspirin 81 mg Tablet,Delayed Release (Dr/Ec) 81 mg PO BID atorvastatin 20 mg tablet 20 mg PO BEDTIME Qty: 30 0RF calcium carbonate-vitamin D3 600 mg-5 mcg (200 unit) Tablet 1 tab PO BID warfarin 1 mg tablet See Rx Instructions .ROUTE .COMPLEX Rx Instructions: 1 mg orally Thursday - and 2 mg on Thursday, Thursday, & Thursday gabapentin 300 mg capsule 300 mg PO BID Discharge Orders: Discharge Order (Routine); Ordered 01/04/22 Ordered By: Cody Johns Referrals: Tracy Jiang DO [Primary Care Provider] - Discharge Diet: Cardiac Discharge Activity: Resume usual activity Patient Instructions: Opioid Safety Activity Restrictions/Additional Instructions: - Hydrate well, drink plenty of electrolyte balance fluids, follow-up with primary care provider in 1 week Discharge Attestations Time Spent in Discharge Care*: less than 30 min Quality Metrics Clinical Quality Measures [ No reported AMI, CVA or VTE this stay] Coding Level of Care Code Acute Chg FW DC note Diagnoses Hypomagnesemia E83.42 Hypokalemia E87.6 S/P ileostomy Z93.2
[2022-01-04 11:15] VITALS: BP 95/52; PULSE 84; RESP 16; TEMP 36.4; O2SAT 96
== END 2022-01-04 15:48 | disposition home or self-care (01) ==
LOC: ER 19:16 → MEDSURG 19:55
PROVIDERS: Family Medicine; Admitting Provider Student in an Organized Health Care Education/Training Program; Emergency Provider Emergency Medicine; PCP Family Medicine; Visit Provider Family Medicine
DX: E83.42 Hypomagnesemia (principal); E87.6 Hypokalemia; Z93.2 Ileostomy status; I48.0 Paroxysmal atrial fibrillation; Z79.01 Long term (current) use of anticoagulants; K50.90 Crohn's disease, unspecified, without complications; Z90.49 Acquired absence of other specified parts of digestive tract; E43 Unspecified severe protein-calorie malnutrition; Z68.1 Body mass index [BMI] 19.9 or less, adult; Z79.82 Long term (current) use of aspirin; Z86.14 Personal history of Methicillin resistant Staphylococcus aureus infection; I25.2 Old myocardial infarction
CPT/HCPCS: 36415; 36591; 71045; 80053; 81003; 83735; 83880; 84100; 84484; 85025; 85610; 87040; 87426; 87804; 93005; 96365; 96366; 96367; 96375; 99285; G0378; J1642; J2405; J3475; J3480; J7030; J7040

== ENCOUNTER 2022-01-14 08:00 | Outpatient (RCR) | payer MEDICARE, SELFPAY ==
[2021-12-31] MEDS: sodium chloride 0.9% 1,000 ML 999 ML IV (08:44)
[2021-12-31] MEDS: potassium chloride premix 100 ML 37 MEQ IV (08:45)
[2021-12-31 08:48] VITALS: BP 102/40; PULSE 92; RESP 18; TEMP 36.2; O2SAT 94
[2021-12-31 09:13] LABS: INR 1.26 (0.8-1.2)
[2021-12-31 09:18] LABS: Anion Gap 20.3 (5-19); Blood Urea Nitrogen 44 mg/dL (8-23); Calcium 9.1 mg/dL (8.5-10.5); Chloride 75 mmol/L (98-107); Glucose 106 mg/dL (65-115); Magnesium 1.5 mg/dL (1.7-2.3); Osmolality Calculated 290 mOsm/kg (285-295); Potassium 3.3 mmol/L (3.5-5.1); Sodium 134 mmol/L (136-145)
[2021-12-31 09:20] LABS: Carbon Dioxide 42 mmol/L (22-29)
== END 2022-01-21 07:05 | disposition home or self-care (01) ==
LOC: GILAB 08:00
PROVIDERS: PCP Family Medicine; Visit Provider Registered Nurse
DX: Z91.89 Other specified personal risk factors, not elsewhere classified (principal); E87.6 Hypokalemia; E83.42 Hypomagnesemia; R79.1 Abnormal coagulation profile; Z79.01 Long term (current) use of anticoagulants
CPT/HCPCS: 80048; 83735; 85610; 96360; 96365; 96366; J3480; J7030

== ENCOUNTER 2022-01-28 07:49 | Outpatient (RCR) | payer MEDICARE, SELFPAY ==
[2022-01-07] MEDS: sodium chloride 0.9% 1,000 ML 999 ML IV (08:17)
[2022-01-07 08:18] VITALS: BP 134/81; PULSE 100; RESP 18; TEMP 36.3; O2SAT 100
[2022-01-07 08:46] LABS: INR 1.54 (0.8-1.2)
[2022-01-07 08:57] LABS: Anion Gap 13.7 (5-19); Blood Urea Nitrogen 25 mg/dL (8-23); Calcium 9.2 mg/dL (8.5-10.5); Carbon Dioxide 37 mmol/L (22-29); Chloride 89 mmol/L (98-107); Glucose 109 mg/dL (65-115); Magnesium 1.5 mg/dL (1.7-2.3); Osmolality Calculated 289 mOsm/kg (285-295); Sodium 137 mmol/L (136-145)
[2022-01-07] MEDS: potassium chloride premix 100 ML 37.5 MEQ IV (09:00)
[2022-01-07 09:01] LABS: Potassium 2.7 mmol/L (3.5-5.1)
[2022-01-07] MEDS: magnesium sulfate premix 2 GM/50 ML PIGGYBACK IV (09:40)
[2022-01-14] MEDS: potassium chloride premix 100 ML 37.5 MEQ IV (08:27)
[2022-01-14] MEDS: sodium chloride 0.9% 1,000 ML 999 ML IV (08:27)
[2022-01-14 08:30] VITALS: BP 119/78; PULSE 107; RESP 18; TEMP 36.6; O2SAT 100
[2022-01-14 08:45] LABS: INR 2.15 (0.8-1.2)
[2022-01-14 08:58] LABS: Anion Gap 15.9 (5-19); Blood Urea Nitrogen 34 mg/dL (8-23); Calcium 9.3 mg/dL (8.5-10.5); Carbon Dioxide 38 mmol/L (22-29); Chloride 84 mmol/L (98-107); Glucose 99 mg/dL (65-115); Magnesium 1.3 mg/dL (1.7-2.3); Osmolality Calculated 288 mOsm/kg (285-295); Sodium 135 mmol/L (136-145)
[2022-01-14 09:32] LABS: Potassium 2.9 mmol/L (3.5-5.1)
[2022-01-14] MEDS: magnesium sulfate premix 2 GM/50 ML PIGGYBACK IV (09:56)
[2022-01-21] MEDS: potassium chloride premix 100 ML 37.5 MEQ IV (08:16)
[2022-01-21] MEDS: sodium chloride 0.9% 1,000 ML 999 ML IV (08:16)
[2022-01-21 08:19] VITALS: BP 111/49; PULSE 53; RESP 18; TEMP 37.1; O2SAT 97
[2022-01-21 08:37] LABS: INR 1.12 (0.8-1.2)
[2022-01-21 08:46] LABS: Anion Gap 13.2 (5-19); Blood Urea Nitrogen 39 mg/dL (8-23); Calcium 9.9 mg/dL (8.5-10.5); Chloride 80 mmol/L (98-107); Glucose 99 mg/dL (65-115); Magnesium 1.5 mg/dL (1.7-2.3); Osmolality Calculated 289 mOsm/kg (285-295); Potassium 3.2 mmol/L (3.5-5.1); Sodium 135 mmol/L (136-145)
[2022-01-21 08:48] LABS: Carbon Dioxide 45 mmol/L (22-29)
[2022-01-21] MEDS: magnesium sulfate premix 2 GM/50 ML PIGGYBACK IV (09:51)
[2022-01-28] MEDS: sodium chloride 0.9% 1,000 ML 999 ML IV (08:10)
[2022-01-28] MEDS: potassium chloride premix 100 ML 37.5 MEQ IV (08:10)
[2022-01-28 08:12] VITALS: BP 111/64; PULSE 83; RESP 18; TEMP 36.5; O2SAT 97
[2022-01-28 08:32] LABS: INR 1.09 (0.8-1.2)
[2022-01-28 08:34] LABS: Anion Gap 19.2 (5-19); Blood Urea Nitrogen 39 mg/dL (8-23); Chloride 72 mmol/L (98-107); Glucose 99 mg/dL (65-115); Magnesium 1.7 mg/dL (1.7-2.3); Osmolality Calculated 283 mOsm/kg (285-295); Sodium 132 mmol/L (136-145)
[2022-01-28 08:37] LABS: Carbon Dioxide 43 mmol/L (22-29); Potassium 2.2 mmol/L (3.5-5.1)
--- NOTE | 2022-01-28 09:30 | PC.NURSE ---
Dr. Buckley's office notified of pt K+ level 2.2. Pt alert and oriented. VSS. Appears to be at normal baseline cognitive level.
== END 2022-01-29 23:59 | disposition home or self-care (01) ==
LOC: GILAB 07:49
PROVIDERS: PCP Family Medicine; Visit Provider Registered Nurse
DX: Z79.01 Long term (current) use of anticoagulants (principal); E87.6 Hypokalemia
CPT/HCPCS: 36591; 80048; 83735; 85610; 96360; 96365; 96366; 96367; J3475; J3480; J7030

== ENCOUNTER → 2022-01-30 13:29 | Outpatient (BNVA) | payer MEDICARE, SELFPAY | PROVIDERS: PCP Family Medicine; Visit Provider Student in an Organized Health Care Education/Training Program | DX: S52.501A Unspecified fracture of the lower end of right radius, initial encounter for closed fracture (principal) | CPT/HCPCS: 73110; 99024 ==

== ENCOUNTER 2022-02-24 11:20 | Emergency (ER) | payer MEDICARE, SELFPAY ==
[2022-02-24 13:15] VITALS: BP 108/63; PULSE 97; RESP 15; TEMP 36.4; O2SAT 97
[2022-02-24 15:28] VITALS: BP 112/78
--- NOTE | 2022-02-24 15:40 | XRR_ITS ---
PROCEDURE INFORMATION: Exam: XR Left Knee Exam date and time: 02/24/2022 3:49 PM Age: 71 years old Clinical indication: Pain; Knee; Left; Patient HX: Can't walk; Additional info: Pain, warmth, erythema TECHNIQUE: Imaging protocol: Radiologic exam of the Left knee. Views: 1 or 2 views. COMPARISON: CR XR knee LT 3V* [id number] 09/19/2021 1:31 PM FINDINGS: Bones/joints: No acute fracture or dislocation is noted. The skeletal structures seem age-appropriate. There may be mild osteopenia. Soft tissues: Unremarkable. XR/XR knee LT 1-2V [id number] IMPRESSION: No acute findings.
--- NOTE | 2022-02-24 15:41 | XRR_ITS ---
PROCEDURE INFORMATION: Exam: XR Left Finger(s) Exam date and time: 02/24/2022 3:56 PM Age: 71 years old Clinical indication: Pain; Finger(s); Left; Additional info: Pain, warmth, swelling TECHNIQUE: Imaging protocol: Radiologic exam of the Left fingers. Views: Minimum 2 views. COMPARISON: MRI Arm w/o LEFT* [id number] 12/17/2017 1:03 PM FINDINGS: Bones/joints: There is a large 1 cm erosive lesion at the 2nd proximal phalanx head at the 1st IP joint. Adjacent soft tissue swelling. No definite fracture. There are some potential erosions at the 3rd DIP joint as well. Advise correlation. Soft tissues: See Bones/joints finding. XR/XR finger LT min 2V [id number] IMPRESSION: 1. Large erosive area/lesion at the 2nd proximal phalanx as described, which may be due to aggressive infection, inflammatory arthritis, or chronic lytic defect. Advise correlation. 2. Second finger soft tissue swelling.
[2022-02-24] MEDS: predniSONE 20 mg Tablet 40 MG PO (16:29)
--- NOTE | 2022-02-24 17:33 | W.ED.EXTPRO ---
HPI - Extremity Problem General: Chief complaint: Extremity Problem,Nontraumatic Stated complaint: can't walk, leg pain Time Seen by Provider: 02/24/22 15:22 History of Present Illness: Patient is an 71-year-old female that presents to the emergency department with complaints of left anterior knee pain swelling and warmth. Patient also reports left index finger swelling. Both of these planes are chronic in nature but appear to have flared up. Patient reports she was seen several months ago for similar complaints and was treated with prednisone. Patient has a medical history that includes chronic renal disease which limits medication options. Patient denies any fever chills chest pain or shortness of breath. Associated symptoms: Deny chest pain, fever(s) or rash Review of Systems General: Reports: 10 or more systems reviewed and unremarkable except in HPI and below Const: Denies: fever(s), chills, change in appetite, change in weight, fatigue or malaise Eyes: Denies: change in vision, eye discomfort, eye discharge or eye redness ENMT: Denies: throat pain, enlarged tonsils, odynophagia, hoarseness, ear or mastoid pain, ear discharge, change in hearing, tinnitus, nasal discharge, nasal congestion, post nasal drip or sinus pain Card: Denies: chest pain, palpitations, irregular heart rhythm, edema, dyspnea on exertion, orthopnea or leg pain with exertion Resp: Denies: dyspnea, productive cough, non-productive cough, wheezing, stridor or chest congestion GI: Denies: abdominal pain, nausea, vomiting, dysphagia, diarrhea, constipation, bloating, GI cramping or hematochezia : Denies: flank pain, difficulty voiding, dysuria, urinary frequency, urinary urgency, urinary hesitancy, oliguria or hematuria Musc: Denies: neck pain, back pain, extremity pain, joint pain, joint swelling, joint redness, joint warmth or muscle weakness Skin/Breast: Denies: rash, pruritus, erythema, photosensitivity or new lesions Neuro: Denies: headache(s), numbness in extremities, weakness in extremities, sensory changes, lack of coordination, difficulty walking, frequent falls, dizziness, confusion, Slurred speech present, difficulty communicating thoughts, seizure-like activity or involuntary movements Endo: Denies: polyuria, polydipsia or tired all the time Frankie/Lymph: Denies: easy bruising or easy bleeding PFS ED PFSH: Medical History Atrial fibrillation not chronic Autonomic neuropathy BMI less than 19,adult Chronic anemia mixed B12 and iron deficiency 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 Baseline creatinine in 2020 records here 2.0-4.0. Has required hemodialysis in past during times of acute illness. Follows with Dr Benz. Creatinine has been as high as 17 in setting of severe pre-renal azotemia. COVID-19 (~10/2019) Crohn's disease s/p total colectomy (1980) with ileostomy (2002) Distal radius fracture, right History of MRSA infection History of pelvic fracture Hyperaldosteronism At at least one point in time felt secondary to aldactone rather than primary Hyperlipidemia Hypersomnia Hypertrophy of bone of hand Hypokalemia chronically on IV infusions of potassium and magnesium Hypomagnesemia chronic Local infection due to Port-A-Cath (~2019) Myocardial infarction (lateral wall) Appears to have been identified during a prolonged hospital stay and possibly type II process. Had not required cardiac intervention. Osteoarthritis Osteoporosis Peripheral neuropathy Raynauds syndrome Severe protein-calorie malnutrition Short gut syndrome Stage III pressure ulcer Systolic congestive heart failure Diagnosed in 04/2019 at [facility] during a time of prolonged hospital care. Multiple echocardiograms show preserved EF 50-60% since that time. Appears to have been a transient issue related to acute medical issues at that time. Ventricular tachycardia (paroxysmal) related to electrolyte abnormalities Vitamin B12 deficiency Surgical History H/O ileostomy (~2002) H/O total colectomy (~2002) History of arthrodesis (08/03/18) right index finger History of delivery x4 History of hernia repair History of right hip replacement (~08/2019) History of tubal ligation Hx of appendectomy Port-A-Cath in place (10/12/19) right IJ Status post open reduction and internal fixation (ORIF) of fracture (12/22/19) left radius, Irina Status post open reduction and internal fixation (ORIF) of fracture (11/2019) right humerus, Irina Status post open reduction and internal fixation (ORIF) of fracture right hip Family History Other CAD (coronary artery disease) Cancer Congestive heart failure Diabetes Hyperlipidemia Social History Smoking and tobacco status: never smoked Second hand smoke exposure: No Alcohol intake: never Current occupational status: retired Physical Exam Const: COMMON NORMALS: no acute distress, average body habitus, patient oriented x3, no limitations, healthy appearing, alert and well nourished GENERAL APPEARANCE: cooperative, comfortable and well developed; not in distress and not anxious ORIENTATION/CONSCIOUSNESS: Yes awake, Yes oriented to person, Yes oriented to place and Yes oriented to time HENMT: COMMON NORMALS: normocephalic, atraumatic, hearing grossly normal bilaterally, external ears normal, EAC's normal, TM's normal bilaterally, Normal external nose present and Normal nasal mucous membranes and turbinates present HEAD & SCALP: normal to inspection, normocephalic and atraumatic FACE & SINUS: normal facial exam and face symmetric NOSE: Normal external nose present, Normal nares present and Normal nasal mucous membranes and turbinates present GENERAL EAR: hearing not grossly impaired EXTERNAL EAR: Yes external ears normal and Yes no periauricular adenopathy EXTERNAL AUDITORY CANAL: EAC's normal TYMPANIC MEMBRANE: TM's normal bilaterally MOUTH: Normal oral and palatal mucosa present, lip normal, tongue normal and Normal salivary glands and ducts present THROAT: posterior oropharynx normal, tonsils normal and uvula midline Eye: COMMON NORMALS: Equal, round and reactive pupils present, EOMs intact bilaterally, conjunctivae normal, no scleral icterus and no papilledema GENERAL EYE: appearance normal, both eyes and all related structures ALIGNMENT: Yes alignment normal PERIORBITAL: periorbital findings normal EYELID: eyelids normal CONJUNCTIVA: Yes conjunctivae normal PUPIL: Yes Equal, round and reactive pupils present DIRECT OPHTHALMOSCOPY: Yes no papilledema Neck/C-Spine: COMMON NORMALS: full ROM, supple, no meningeal signs and no JVD GENERAL: Yes normal visual inspection CERVICAL SPINE: Yes cervical ROM normal Lymph: LYMPHATIC: no lymphadenopathy noted Chest: COMMONS NORMALS: normal inspection of the chest Breast/axilla inspection: Yes no chest deformity, asymmetry, normal contours, no nodules, masses, tenderness Resp: COMMON NORMALS: normal respiratory effort, No retractions, No use of accessory muscles and clear to auscultation bilaterally EFFORT & INSPECTION: Yes able to speak in complete sentences, Yes symmetric chest movement, No abnormal respiratory pattern, No tachypneic and No respiratory distress AUSCULTATION: clear to auscultation bilaterally Cardio: COMMON NORMALS: no JVD, regular rate, regular rhythm and Peripheral pulses 2+ throughout RATE: regular rate RHYTHM: regular rhythm PERIPHERAL PULSES: Peripheral pulses 2+ throughout GI: COMMON NORMALS: Normal to inspection, nondistended, normoactive bowel sounds present, Soft to palpation and non-tender INSPECTION: Yes normal to inspection PALPATION: Yes Soft to palpation : COMMON NORMALS: Yes no CVA tenderness BLADDER/KIDNEY EXAM: Yes no CVA tenderness and Yes CVA tenderness Back/Pelvis: COMMON NORMALS: no CVA tenderness, thoracic and lumbar spine normal to inspection, no thoracic nor lumbar tenderness, thoraco-lumbar ROM normal and straight leg raise negative bilaterally GENERAL BACK: Yes CVA tenderness and No ecchymosis THORACIC SPINE/UPPER BACK: Yes normal to inspection LUMBAR SPINE/LOWER BACK: Yes normal to inspection and Yes straight leg raise negative bilaterally Extremity: COMMON NORMALS: normal to inspection, full ROM and capillary refill normal NARRATIVE EXTREMITY EXAM: Left upper extremity: Skin is clean dry and intact Patient does have erythema and swelling over the PIP joint of the left index finger Patient is able to flex and extend but it is very tight and tender to palpation. Sensation is intact to light touch at the distal aspect of the digit Left lower extremity: Skin is clean dry and intact Erythema and warmth over the tibial tuberosity and anterior knee No edema present Patient is able to flex and extend the knee although it does cause her discomfort Patient is able to do a straight leg raise although it causes her discomfort Patient is able to dorsiflex plantarflex the foot Patient is able to dorsiflex great toe Sensation intact to light touch to medial, lateral, dorsal, plantar surface of the foot and first with space DP pulses palpable and cap refills less than 3 seconds Neuro: COMMON NORMALS: patient oriented x3 SENSORIUM/ORIENTATION: Yes alert, Yes oriented to person, Yes oriented to place and Yes oriented to time MENINGEAL SIGNS: Yes no meningeal signs Psych: COMMON NORMALS: mental status grossly normal, Normal thought process present, cooperative, normal affect, speech normal and activity/motor behavior normal SPEECH: Yes normal speech THOUGHT PROCESS: Normal thought process present Skin: COMMON NORMALS: no rashes or lesions noted, no wounds, turgor normal, no jaundice, no petechiae and no mottling GENERAL SKIN EXAM: no rashes or lesions noted and turgor normal Course Vital Signs: Vital signs: Vital Signs Temperature 97.6 F 02/24/22 13:15 Pulse Rate 97 02/24/22 13:15 Respiratory Rate 15 02/24/22 13:15 Blood Pressure 112/78 02/24/22 15:28 Pulse Oximetry 97 02/24/22 13:15 Oxygen Delivery Me thod 02/24/22 13:15 MDM - Extremity (Nontraumatic) Medical Decision Making Patient was evaluated in the emergency department for complaints of anterior knee pain as well as erythema and warmth. Patient reports she is having difficulty ambulating on the extremity. Patient also reports edema and warmth to the index finger. Patient has undergone XR imaging of these extremities that no effusion is noted on the left knee. She does have osseous destruction of the second proximal phalanx of the finger. This was discussed with her back in August of this year and patient has had follow-up with Dr. Bernard with orthopedics. Patient does have erythema and warmth to the anterior left knee that extends from the tibial veracity to mid patella Patient is going to be treated with clindamycin. She was given prednisone to help with some of her discomfort and inflammation. Sent is going to follow-up with primary care and orthopedics. Patient did desire to be admitted and unfortunately we do not have criteria met for admission. We did discuss possible placement options with administrator social welfare, although her insurance would require 3 night minimum stay for consideration. Patient does not desire long-term placement. She does have a daughter and grandchildren here in the area. She will reach out to them to help manage her symptoms at home. Patient is to return to the emergency department for new, concerning, worsening symptoms. Questions not answered Differential Diagnosis Likely gout and cellulitis Lab Data Radiology Impressions Knee X-Ray 02/24/22 15:40 IMPRESSION: No acute findings. Finger X-Ray 02/24/22 15:41 IMPRESSION: 1. Large erosive area/lesion at the 2nd proximal phalanx as described, which may be due to aggressive infection, inflammatory arthritis, or chronic lytic defect. Advise correlation. 2. Second finger soft tissue swelling. Discharge Plan Discharge Patient Disposition: Home Clinical Impression: Cellulitis, Gout attack Condition: Stable Prescriptions: New clindamycin HCl 150 mg capsule 450 mg PO TID 7 Days Qty: 63 0RF No Action (DME) ostomy wipes See Rx Instructions .Route .MEDSUPPLY Qty: 100 0RF Rx Instructions: As directed (DME) [facility] Joint Brace See Rx Instructions .ROUTE .MEDSUPPLY Qty: 1 0RF Rx Instructions: As directed (DME) VELCRO WRIST BRACE See Rx Instructions .Route .MEDSUPPLY Qty: 1 0RF Rx Instructions: As directed acetaminophen [Tylenol Extra Strength] 500 mg Tablet 1,000 mg PO Q6H PRN (Reason: Pain) pantoprazole 20 mg tablet,delayed release (DR/EC) 20 mg PO DAILY promethazine 25 mg tablet 25 mg PO BID tramadol 50 mg tablet 50 mg PO Q6H PRN (Reason: pain) 7 Days Qty: 28 0RF potassium chloride in water 40 mEq/100 mL Piggyback 40 meq IV .WEEKLY PRN (Reason: Hypokalemia) magnesium sulfate in D5W 2 gram/100 mL Piggyback 100 ml IV .WEEKLY PRN (Reason: Hypomagnesemia) aspirin 81 mg Tablet,Delayed Release (Dr/Ec) 81 mg PO BID atorvastatin 20 mg tablet 20 mg PO BEDTIME Qty: 30 0RF calcium carbonate-vitamin D3 600 mg-5 mcg (200 unit) Tablet 1 tab PO BID warfarin 1 mg tablet See Rx Instructions .ROUTE .COMPLEX Rx Instructions: 1 mg orally Thursday - and 2 mg on Thursday, Thursday, & Thursday gabapentin 300 mg capsule 300 mg PO BID Discharge Orders: Discharge ED (Routine); Ordered 02/24/22 Ordered By: Renetta Arriola Referrals: Tracy Jiang DO [Primary Care Provider] - Discharge Diet: Advance as tolerated Discharge Activity: Resume usual activity Patient Instructions: Opioid Safety, Pain Management, Cellulitis (ED) Activity Restrictions/Additional Instructions: These return to the emergency department for new, concerning, worsening symptoms Antibiotics as prescribed Ice to anterior knee as well as finger Follow-up with orthopedic surgeon as discussed Please up with primary care for further discussion Coding Level of Care Code ED 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
[2022-02-24 18:02] VITALS: BP 118/70; PULSE 62; RESP 19; O2SAT 97
== END 2022-02-24 18:05 | disposition home or self-care (01) ==
PROVIDERS: Emergency Provider Nurse Practitioner; PCP Family Medicine
DX: L03.90 Cellulitis, unspecified (principal); M10.9 Gout, unspecified; Z79.82 Long term (current) use of aspirin; Z79.01 Long term (current) use of anticoagulants; N18.31 Chronic kidney disease, stage 3a; E78.5 Hyperlipidemia, unspecified; I25.2 Old myocardial infarction; I50.20 Unspecified systolic (congestive) heart failure
CPT/HCPCS: 73140; 73560; 99283; J7512

== ENCOUNTER 2022-02-25 08:22 | Outpatient (RCR) | payer MEDICARE, SELFPAY ==
[2022-02-04] MEDS: sodium chloride 0.9% 1,000 ML 999 ML IV (08:20)
[2022-02-04 08:24] VITALS: BP 92/47; PULSE 107; RESP 18; TEMP 36.4; O2SAT 95
[2022-02-04] MEDS: potassium chloride premix 100 ML 37.5 MEQ IV (08:36)
[2022-02-04 08:38] LABS: INR 0.98 (0.8-1.2)
[2022-02-04 08:48] LABS: Anion Gap 17.4 (5-19); Blood Urea Nitrogen 34 mg/dL (8-23); Calcium 10.1 mg/dL (8.5-10.5); Chloride 74 mmol/L (98-107); Glucose 119 mg/dL (65-115); Magnesium 1.7 mg/dL (1.7-2.3); Osmolality Calculated 289 mOsm/kg (285-295); Sodium 135 mmol/L (136-145)
[2022-02-04 09:01] LABS: Carbon Dioxide 46 mmol/L (22-29); Potassium 2.4 mmol/L (3.5-5.1)
[2022-02-11] MEDS: sodium chloride 0.9% 1,000 ML 999 ML IV (08:20)
[2022-02-11] MEDS: potassium chloride premix 100 ML 37.5 MEQ IV (08:24)
[2022-02-11 08:26] VITALS: BP 121/60; PULSE 94; RESP 18; TEMP 36.5; O2SAT 98
[2022-02-11 08:49] LABS: INR 0.93 (0.8-1.2)
[2022-02-11 08:50] LABS: Anion Gap 13.1 (5-19); Blood Urea Nitrogen 37 mg/dL (8-23); Chloride 82 mmol/L (98-107); Glucose 95 mg/dL (65-115); Magnesium 1.9 mg/dL (1.7-2.3); Osmolality Calculated 288 mOsm/kg (285-295); Potassium 3.1 mmol/L (3.5-5.1); Sodium 135 mmol/L (136-145)
[2022-02-11 08:54] LABS: Carbon Dioxide 43 mmol/L (22-29)
[2022-02-18] MEDS: sodium chloride 0.9% 1,000 ML 999 ML IV (08:17)
[2022-02-18] MEDS: potassium chloride premix 100 ML 25 MEQ IV (08:18)
[2022-02-18 08:21] VITALS: BP 110/56; PULSE 106; RESP 16; TEMP 36.6; O2SAT 98
[2022-02-18 08:36] LABS: INR 1.57 (0.8-1.2)
[2022-02-18 08:48] LABS: Anion Gap 15.6 (5-19); Blood Urea Nitrogen 61 mg/dL (8-23); Calcium 9.5 mg/dL (8.5-10.5); Carbon Dioxide 37 mmol/L (22-29); Chloride 88 mmol/L (98-107); Glucose 105 mg/dL (65-115); Magnesium 1.4 mg/dL (1.7-2.3); Osmolality Calculated 304 mOsm/kg (285-295); Sodium 138 mmol/L (136-145)
[2022-02-18 08:55] LABS: Potassium 2.6 mmol/L (3.5-5.1)
[2022-02-18] MEDS: magnesium sulfate premix 2 GM/50 ML PIGGYBACK IV (09:18)
[2022-02-25 08:25] VITALS: BP 146/76; PULSE 101; RESP 18; TEMP 35.9; O2SAT 98
[2022-02-25] MEDS: sodium chloride 0.9% 1,000 ML 999 ML IV (08:35)
[2022-02-25] MEDS: potassium chloride premix 100 ML 37.5 MEQ IV (08:46)
[2022-02-25 08:54] LABS: INR 1.97 (0.8-1.2)
[2022-02-25 09:04] LABS: Anion Gap 19.9 (5-19); Blood Urea Nitrogen 54 mg/dL (8-23); Carbon Dioxide 28 mmol/L (22-29); Chloride 86 mmol/L (98-107); Glucose 118 mg/dL (65-115); Magnesium 1.3 mg/dL (1.7-2.3); Osmolality Calculated 288 mOsm/kg (285-295); Sodium 131 mmol/L (136-145)
[2022-02-25 09:09] LABS: Potassium 2.9 mmol/L (3.5-5.1)
[2022-02-25] MEDS: magnesium sulfate premix 2 GM/50 ML PIGGYBACK IV (10:00)
== END 2022-03-01 23:59 | disposition home or self-care (01) ==
LOC: GILAB 08:22
PROVIDERS: PCP Family Medicine; Visit Provider Registered Nurse
DX: Z91.89 Other specified personal risk factors, not elsewhere classified (principal); Z79.01 Long term (current) use of anticoagulants; E87.6 Hypokalemia; E83.42 Hypomagnesemia
CPT/HCPCS: 36591; 80048; 83735; 85610; 96360; 96365; 96366; 96367; J3475; J3480; J7030

== ENCOUNTER 2022-03-13 16:20 | Outpatient (CLI) | payer MEDICARE, SELFPAY ==
[2022-03-13 17:34] LABS: Potassium 3.2 mmol/L (3.5-5.1)
== END 2022-03-13 16:21 | disposition home or self-care (01) ==
PROVIDERS: PCP Family Medicine; Visit Provider Family Medicine
DX: N18.6 End stage renal disease (principal)
CPT/HCPCS: 84132

== ENCOUNTER 2022-03-25 08:01 | Outpatient (RCR) | payer MEDICARE, SELFPAY ==
[2022-03-04] MEDS: sodium chloride 0.9% 1,000 ML 999 ML IV (08:34)
[2022-03-04] MEDS: potassium chloride premix 100 ML 37.5 MEQ IV (08:36)
[2022-03-04 08:37] VITALS: BP 112/70; PULSE 95; RESP 18; TEMP 36.7; O2SAT 96
[2022-03-04 08:45] LABS: INR 2.01 (0.8-1.2)
[2022-03-04 08:51] LABS: Anion Gap 13.1 (5-19); Blood Urea Nitrogen 29 mg/dL (8-23); Calcium 8.5 mg/dL (8.5-10.5); Carbon Dioxide 32 mmol/L (22-29); Chloride 91 mmol/L (98-107); Glucose 93 mg/dL (65-115); Osmolality Calculated 282 mOsm/kg (285-295); Potassium 3.1 mmol/L (3.5-5.1); Sodium 133 mmol/L (136-145)
[2022-03-04 09:07] LABS: Magnesium 0.9 mg/dL (1.7-2.3)
[2022-03-04] MEDS: magnesium sulfate premix 2 GM/50 ML PIGGYBACK IV (09:45)
[2022-03-11 08:00] VITALS: BP 95/54; PULSE 91; RESP 18; TEMP 36.7; O2SAT 99
[2022-03-11] MEDS: sodium chloride 0.9% 1,000 ML 999 ML IV (08:15)
[2022-03-11] MEDS: potassium chloride premix 100 ML 37.5 MEQ IV (08:15)
[2022-03-11 08:44] LABS: INR 0.94 (0.8-1.2)
[2022-03-11 08:49] LABS: Anion Gap 19.4 (5-19); Blood Urea Nitrogen 21 mg/dL (8-23); Calcium 9.4 mg/dL (8.5-10.5); Carbon Dioxide 33 mmol/L (22-29); Chloride 88 mmol/L (98-107); Glucose 121 mg/dL (65-115); Magnesium 1.6 mg/dL (1.7-2.3); Osmolality Calculated 290 mOsm/kg (285-295); Sodium 138 mmol/L (136-145)
[2022-03-11 08:52] LABS: Potassium 2.4 mmol/L (3.5-5.1)
--- NOTE | 2022-03-11 11:04 | PC.NURSE ---
Pt to GI infusions for routine K-rider and hydration. Pt K+ level today 2.4. Mg level 1.6. Pt received 40 mEq KCL and 1 L NS as ordered per right implanted port. Tolerated well.
[2022-03-18] MEDS: potassium chloride premix 100 ML 37.5 MEQ IV (08:40)
[2022-03-18] MEDS: sodium chloride 0.9% 1,000 ML 999 ML IV (08:40)
[2022-03-18 08:44] VITALS: BP 123/62; PULSE 99; RESP 18; TEMP 36.6; O2SAT 99
[2022-03-18 08:57] LABS: INR 1.02 (0.8-1.2)
[2022-03-18 09:04] LABS: Anion Gap 13.7 (5-19); Blood Urea Nitrogen 26 mg/dL (8-23); Calcium 8.8 mg/dL (8.5-10.5); Chloride 84 mmol/L (98-107); Glucose 95 mg/dL (65-115); Magnesium 1.4 mg/dL (1.7-2.3); Osmolality Calculated 289 mOsm/kg (285-295); Sodium 137 mmol/L (136-145)
[2022-03-18 09:20] LABS: Potassium 2.7 mmol/L (3.5-5.1)
[2022-03-18 09:21] LABS: Carbon Dioxide 42 mmol/L (22-29)
[2022-03-18] MEDS: magnesium sulfate premix 2 GM/50 ML PIGGYBACK IV (09:28)
[2022-03-25 08:00] VITALS: BP 117/62; PULSE 85; RESP 18; TEMP 36.6; O2SAT 98
[2022-03-25] MEDS: sodium chloride 0.9% 1,000 ML 999 ML IV (08:10)
[2022-03-25] MEDS: potassium chloride premix 100 ML 37.5 MEQ IV (08:11)
[2022-03-25 08:56] LABS: Anion Gap 13.4 (5-19); Blood Urea Nitrogen 31 mg/dL (8-23); Calcium 9.4 mg/dL (8.5-10.5); Chloride 76 mmol/L (98-107); Glucose 102 mg/dL (65-115); Magnesium 1.5 mg/dL (1.7-2.3); Osmolality Calculated 281 mOsm/kg (285-295); Sodium 132 mmol/L (136-145)
[2022-03-25 08:57] LABS: INR 0.93 (0.8-1.2)
[2022-03-25 08:59] LABS: Carbon Dioxide 45 mmol/L (22-29); Potassium 2.4 mmol/L (3.5-5.1)
[2022-03-25] MEDS: magnesium sulfate premix 2 GM/50 ML PIGGYBACK IV (09:35)
--- NOTE | 2022-03-25 11:00 | PC.NURSE ---
Pt to GI infusion for weekly KCL infusion and hydration. Critical lab K+ 2.4 sent to [facility], Morenita Martel. Pt received 40 mEq K-rider, 1 L NS, and 2 g Magnesium Sulfate as ordered.
== END 2022-04-01 23:59 | disposition home or self-care (01) ==
LOC: GILAB 08:01
PROVIDERS: PCP Family Medicine; Visit Provider Registered Nurse
DX: R79.1 Abnormal coagulation profile (principal)
CPT/HCPCS: 36591; 80048; 83735; 85610; 96360; 96365; 96366; 96367; J3475; J3480; J7030

== ENCOUNTER 2022-04-29 07:41 | Outpatient (RCR) | payer MEDICARE, SELFPAY ==
[2022-04-03 08:25] VITALS: BP 114/62; PULSE 108; RESP 18; TEMP 36.3; O2SAT 94
[2022-04-03] MEDS: sodium chloride 0.9% 1,000 ML 999 ML IV (08:53)
[2022-04-03] MEDS: potassium chloride premix 100 ML 37.5 MEQ IV (08:54)
[2022-04-03 09:04] LABS: INR 1.91 (0.8-1.2)
[2022-04-03 09:12] LABS: Anion Gap 15.7 (5-19); Blood Urea Nitrogen 30 mg/dL (8-23); Chloride 80 mmol/L (98-107); Glucose 129 mg/dL (65-115); Magnesium 1.3 mg/dL (1.7-2.3); Osmolality Calculated 286 mOsm/kg (285-295); Sodium 134 mmol/L (136-145)
[2022-04-03 09:21] LABS: Carbon Dioxide 41 mmol/L (22-29); Potassium 2.7 mmol/L (3.5-5.1)
[2022-04-03] MEDS: magnesium sulfate premix 2 GM/50 ML PIGGYBACK IV (09:59)
[2022-04-08] MEDS: potassium chloride premix 100 ML 37.5 MEQ IV (08:30)
[2022-04-08] MEDS: sodium chloride 0.9% 1,000 ML 999 ML IV (08:30)
[2022-04-08 08:49] VITALS: BP 106/47; PULSE 81; RESP 18; TEMP 36.8; O2SAT 97
[2022-04-08 09:00] LABS: INR 0.99 (0.8-1.2)
[2022-04-08 09:04] LABS: Anion Gap 12.5 (5-19); Blood Urea Nitrogen 24 mg/dL (8-23); Calcium 9.1 mg/dL (8.5-10.5); Chloride 78 mmol/L (98-107); Glucose 95 mg/dL (65-115); Magnesium 1.5 mg/dL (1.7-2.3); Osmolality Calculated 282 mOsm/kg (285-295); Sodium 134 mmol/L (136-145)
[2022-04-08 09:23] LABS: Potassium 2.5 mmol/L (3.5-5.1)
[2022-04-08 09:24] LABS: Carbon Dioxide 46 mmol/L (22-29)
[2022-04-08] MEDS: magnesium sulfate premix 2 GM/50 ML PIGGYBACK IV (09:35)
[2022-04-15] MEDS: sodium chloride 0.9% 1,000 ML 999 ML IV (08:22)
[2022-04-15] MEDS: potassium chloride premix 100 ML 37.5 MEQ IV (08:23)
[2022-04-15 08:25] VITALS: BP 108/67; PULSE 93; RESP 18; TEMP 36.3; O2SAT 98
[2022-04-15 08:39] LABS: INR 0.96 (0.8-1.2)
[2022-04-15 08:43] LABS: Anion Gap 13.5 (5-19); Blood Urea Nitrogen 21 mg/dL (8-23); Calcium 8.8 mg/dL (8.5-10.5); Chloride 80 mmol/L (98-107); Glucose 91 mg/dL (65-115); Magnesium 1.3 mg/dL (1.7-2.3); Osmolality Calculated 279 mOsm/kg (285-295); Sodium 133 mmol/L (136-145)
[2022-04-15 08:45] LABS: Carbon Dioxide 42 mmol/L (22-29); Potassium 2.5 mmol/L (3.5-5.1)
[2022-04-15] MEDS: magnesium sulfate premix 2 GM/50 ML PIGGYBACK IV (09:38)
[2022-04-22] MEDS: potassium chloride premix 100 ML 37.5 MEQ IV (08:42)
[2022-04-22] MEDS: sodium chloride 0.9% 1,000 ML 999 ML IV (08:42)
[2022-04-22 08:45] VITALS: BP 131/75; PULSE 103; RESP 18; TEMP 36.4; O2SAT 98
[2022-04-22 09:00] LABS: INR 1.65 (0.8-1.2)
[2022-04-22 09:04] LABS: Anion Gap 13.6 (5-19); Blood Urea Nitrogen 36 mg/dL (8-23); Calcium 8.8 mg/dL (8.5-10.5); Carbon Dioxide 38 mmol/L (22-29); Chloride 85 mmol/L (98-107); Glucose 110 mg/dL (65-115); Magnesium 1.3 mg/dL (1.7-2.3); Osmolality Calculated 287 mOsm/kg (285-295); Sodium 134 mmol/L (136-145)
[2022-04-22 09:09] LABS: Potassium 2.6 mmol/L (3.5-5.1)
[2022-04-22] MEDS: magnesium sulfate premix 2 GM/50 ML PIGGYBACK IV (09:50)
[2022-04-29 07:55] VITALS: BP 116/61; PULSE 90; RESP 18; TEMP 36.3; O2SAT 100
[2022-04-29] MEDS: potassium chloride premix 100 ML 37.5 MEQ IV (08:18)
[2022-04-29] MEDS: sodium chloride 0.9% 1,000 ML 999 ML IV (08:18)
[2022-04-29 08:34] LABS: Anion Gap 13.2 (5-19); Blood Urea Nitrogen 41 mg/dL (8-23); Carbon Dioxide 38 mmol/L (22-29); Chloride 90 mmol/L (98-107); Glucose 99 mg/dL (65-115); Magnesium 1.1 mg/dL (1.7-2.3); Osmolality Calculated 296 mOsm/kg (285-295); Potassium 3.2 mmol/L (3.5-5.1); Sodium 138 mmol/L (136-145)
[2022-04-29 08:38] LABS: INR 7.05 (0.8-1.2)
--- NOTE | 2022-04-29 08:42 | PC.NURSE ---
PT 63.6 and INR 7[address] Jiang's nurse, Soraida.
[2022-04-29] MEDS: magnesium sulfate premix 2 GM/50 ML PIGGYBACK IV (09:25)
[2022-04-29 10:00] LABS: Uric Acid 14.6 mg/dL (2.4-5.7)
== END 2022-04-29 23:59 | disposition home or self-care (01) ==
LOC: GILAB 07:41
PROVIDERS: PCP Family Medicine; Visit Provider Registered Nurse
DX: M10.9 Gout, unspecified (principal)
CPT/HCPCS: 36591; 80048; 83735; 84550; 85610; 96360; 96365; 96366; 96367; J3475; J3480; J7030

== ENCOUNTER → 2022-05-19 14:23 | Outpatient (BNVA) | payer MEDICARE, SELFPAY | PROVIDERS: PCP Family Medicine; Visit Provider Registered Nurse | DX: N18.4 Chronic kidney disease, stage 4 (severe) (principal); E87.6 Hypokalemia | CPT/HCPCS: 80069; 82306; 82310; 83735; 83970; 85007; 85027 ==

== ENCOUNTER 2022-05-30 08:00 | Outpatient (RCR) | payer MEDICARE, SELFPAY ==
[2022-05-06] MEDS: potassium chloride premix 100 ML 37.5 MEQ IV (08:28)
[2022-05-06] MEDS: sodium chloride 0.9% 1,000 ML 999 ML IV (08:28)
[2022-05-06 08:35] VITALS: BP 99/68; PULSE 95; RESP 18; TEMP 36.3; O2SAT 95
[2022-05-06 08:40] LABS: INR 0.93 (0.8-1.2)
[2022-05-06 08:54] LABS: Anion Gap 9.2 (5-19); Blood Urea Nitrogen 15 mg/dL (8-23); Calcium 8.5 mg/dL (8.5-10.5); Chloride 81 mmol/L (98-107); Glucose 90 mg/dL (65-115); Magnesium 1.2 mg/dL (1.7-2.3); Osmolality Calculated 270 mOsm/kg (285-295); Sodium 130 mmol/L (136-145)
[2022-05-06 08:57] LABS: Potassium 2.2 mmol/L (3.5-5.1)
[2022-05-06 08:58] LABS: Carbon Dioxide 42 mmol/L (22-29)
[2022-05-06] MEDS: magnesium sulfate premix 2 GM/50 ML PIGGYBACK IV (09:35)
[2022-05-07 10:34] VITALS: RESP 18; TEMP 36.1
--- NOTE | 2022-05-07 10:34 | PC.NURSE ---
Dr. Morenita Baumann's office called stating patient needs repeat K+ and Mg level drawn today. Pt to GI infusions and lab drawn via port. Tolerated well.
[2022-05-07 10:54] LABS: Potassium 3.1 mmol/L (3.5-5.1)
[2022-05-13] MEDS: sodium chloride 0.9% 1,000 ML 999 ML IV (08:26)
[2022-05-13] MEDS: potassium chloride premix 100 ML 37.5 MEQ IV (08:27)
[2022-05-13 08:31] VITALS: BP 125/72; PULSE 80; RESP 18; TEMP 36.5; O2SAT 93
[2022-05-13 08:40] LABS: Basophils % 0.4 %; Eosinophils # 0.2 10^3/uL (0.0-0.8); Eosinophils % 1.8 %; Hematocrit 32.6 % (37.0-47.0); Hemoglobin 10.5 g/dL (11.5-15.3); Lymphocytes # 1.1 10^3/uL (0.8-4.8); Lymphocytes % 11.1 %; Mean Corpuscular HGB Conc 32.2 g/dL (30.0-36.0); Mean Corpuscular Hemoglobin 32.3 pg (28.0-34.0); Mean Corpuscular Volume 100.3 fl (81-99); Mean Platelet Volume 11.3 fL (7.4-10.4); Monocytes # 1.1 10^3/uL (0.2-0.9); Monocytes % 10.9 %; Neutrophils # 7.76 10^3/uL (1.8-7.7); Neutrophils % 75.4 %; Nucleated Red Blood Cells % 0 %; Platelet Count 227 10^3/cmm (130-400); Red Blood Count 3.25 10^6/uL (4.1-5.3); Red Cell Distribution Width 15.3 % (12.1-15.1); White Blood Count 10.3 10^3/uL (4.0-10.0)
[2022-05-13 08:41] LABS: INR 0.94 (0.8-1.2)
[2022-05-13 09:14] LABS: Albumin Level 3.9 g/dL (3.5-5.2); Anion Gap 17.8 (5-19); Calcium 9.9 mg/dL (8.5-10.5); Glucose 108 mg/dL (65-115); Magnesium 1.9 mg/dL (1.7-2.3); Phosphorus 4.3 mg/dL (2.5-4.5)
[2022-05-13 09:22] LABS: 25 Hydroxy Vitamin D 22 ng/mL (30-100); Blood Urea Nitrogen 29 mg/dL (8-23); Chloride 75 mmol/L (98-107); Osmolality Calculated 282 mOsm/kg (285-295); Sodium 133 mmol/L (136-145)
[2022-05-13 09:32] LABS: Potassium 2.8 mmol/L (3.5-5.1)
[2022-05-13 09:33] LABS: Carbon Dioxide 43 mmol/L (22-29)
[2022-05-13 11:20] LABS: Calcium 9.9 mg/dL (8.5-10.5); Parathyroid Hormone 725.1 pg/mL (15-65)
[2022-05-20] MEDS: sodium chloride 0.9% 1,000 ML 999 ML IV (08:44)
[2022-05-20] MEDS: potassium chloride premix 100 ML 37.5 MEQ IV (08:45)
[2022-05-20 08:50] VITALS: BP 145/75; PULSE 114; RESP 18; TEMP 36.5; O2SAT 97
[2022-05-20 09:30] LABS: Anion Gap 15.2 (5-19); Blood Urea Nitrogen 40 mg/dL (8-23); Calcium 8.9 mg/dL (8.5-10.5); Carbon Dioxide 39 mmol/L (22-29); Chloride 84 mmol/L (98-107); Glucose 145 mg/dL (65-115); Magnesium 1.2 mg/dL (1.7-2.3); Osmolality Calculated 292 mOsm/kg (285-295); Potassium 3.2 mmol/L (3.5-5.1); Sodium 135 mmol/L (136-145)
[2022-05-20] MEDS: magnesium sulfate premix 2 GM/50 ML PIGGYBACK IV (09:44)
[2022-05-20 09:46] LABS: INR 1.68 (0.8-1.2)
[2022-05-23 08:12] VITALS: BP 127/60; PULSE 89; RESP 18; TEMP 36.3; O2SAT 97
[2022-05-23 08:26] LABS: Blood Urea Nitrogen 43 mg/dL (8-23); Calcium 8.3 mg/dL (8.5-10.5); Carbon Dioxide 33 mmol/L (22-29); Chloride 89 mmol/L (98-107); Glucose 125 mg/dL (65-115); Magnesium 1.5 mg/dL (1.7-2.3); Osmolality Calculated 292 mOsm/kg (285-295); Sodium 135 mmol/L (136-145)
[2022-05-23] MEDS: potassium chloride premix 100 ML 37.5 MEQ IV (08:37)
--- NOTE | 2022-05-23 08:39 | PC.NURSE ---
Morenita Baumann notified of pt c/o swelling in feet, ankles, and face. Pt received hydration on Thursday with Krider and Mag. Pt back again today for additional electrolytes. Orders received to hold hydration for today.
--- NOTE | 2022-05-23 08:55 | PC.NURSE ---
Pt K+ 3.0 and Magnesium 1.5 today. KCL 40 mEq IV and Magnesium Sulfate 2 gm IV as ordered. Hydration held as ordered. Lab results faxed to [facility].
[2022-05-23] MEDS: magnesium sulfate premix 2 GM/50 ML PIGGYBACK IV (09:02)
[2022-05-27] MEDS: potassium chloride premix 100 ML 37.5 MEQ IV (08:14)
[2022-05-27] MEDS: sodium chloride 0.9% 1,000 ML 999 ML IV (08:14)
[2022-05-27 08:22] VITALS: BP 126/76; PULSE 93; RESP 18; TEMP 36.3; O2SAT 96
[2022-05-27 08:58] LABS: Anion Gap 12.1 (5-19); Blood Urea Nitrogen 38 mg/dL (8-23); Carbon Dioxide 36 mmol/L (22-29); Chloride 92 mmol/L (98-107); Glucose 91 mg/dL (65-115); Magnesium 1.1 mg/dL (1.7-2.3); Osmolality Calculated 293 mOsm/kg (285-295); Potassium 3.1 mmol/L (3.5-5.1); Sodium 137 mmol/L (136-145)
[2022-05-27 09:45] LABS: INR 10.11 (0.8-1.2)
[2022-05-27] MEDS: magnesium sulfate premix 2 GM/50 ML PIGGYBACK IV (09:46)
--- NOTE | 2022-05-27 11:03 | PC.NURSE ---
Pt to GI infusions for electrolyte infusions and hydration. Critical PT/INR called to Dr. Jiang. Orders received to hold Coumadin until Thursday and repeat PT/INR on Thursday when she comes back for additional infusions on that date. Pt notified to hold Coumadin as ordered. Verbalized understanding. Pt educated to look for any signs of bleeding and to go to ED immediately for any concerns.
[2022-05-30 08:10] VITALS: BP 129/79; PULSE 101; RESP 18; TEMP 36.8; O2SAT 99
[2022-05-30 08:49] LABS: INR 2.11 (0.8-1.2)
--- NOTE | 2022-05-30 09:06 | PC.NURSE ---
Pt to GI infusions for PT/INR. Results called to [place] at Dr. Jiang's office. Office to contact patient regarding when to resume Coumadin.
== END 2022-05-30 23:59 | disposition home or self-care (01) ==
LOC: GILAB 08:00
PROVIDERS: PCP Family Medicine; Visit Provider Registered Nurse
DX: R79.1 Abnormal coagulation profile (principal); N18.5 Chronic kidney disease, stage 5; E83.42 Hypomagnesemia; E87.6 Hypokalemia
CPT/HCPCS: 36591; 80048; 80069; 82306; 82310; 83735; 83970; 84132; 85025; 85610; 96360; 96365; 96366; 96367; J3475; J3480; J7030

== ENCOUNTER 2022-06-24 08:05 | Outpatient (RCR) | payer MEDICARE, SELFPAY ==
[2022-06-03 08:04] VITALS: BP 116/75; PULSE 114; RESP 18; TEMP 36.1; O2SAT 94
[2022-06-03] MEDS: potassium chloride premix 100 ML 37.5 MEQ IV (08:10)
[2022-06-03 08:50] LABS: INR 1.15 (0.8-1.2)
[2022-06-03 08:54] LABS: Anion Gap 15.1 (5-19); Blood Urea Nitrogen 26 mg/dL (8-23); Calcium 7.5 mg/dL (8.5-10.5); Carbon Dioxide 36 mmol/L (22-29); Chloride 90 mmol/L (98-107); Glucose 93 mg/dL (65-115); Osmolality Calculated 290 mOsm/kg (285-295); Potassium 3.1 mmol/L (3.5-5.1); Sodium 138 mmol/L (136-145)
[2022-06-03 09:00] LABS: Magnesium 0.8 mg/dL (1.7-2.3)
[2022-06-03] MEDS: magnesium sulfate premix 2 GM/50 ML PIGGYBACK IV (09:36)
[2022-06-10] MEDS: potassium chloride premix 100 ML 37.5 MEQ IV (08:19)
[2022-06-10 08:22] VITALS: BP 116/65; PULSE 95; RESP 18; TEMP 36.6; O2SAT 100
[2022-06-10 08:43] LABS: INR 1.09 (0.8-1.2)
[2022-06-10 08:58] LABS: Anion Gap 22.3 (5-19); Blood Urea Nitrogen 27 mg/dL (8-23); Calcium 8.5 mg/dL (8.5-10.5); Carbon Dioxide 30 mmol/L (22-29); Chloride 83 mmol/L (98-107); Glucose 86 mg/dL (65-115); Magnesium 1.2 mg/dL (1.7-2.3); Osmolality Calculated 280 mOsm/kg (285-295); Sodium 133 mmol/L (136-145)
[2022-06-10 09:02] LABS: Potassium 2.3 mmol/L (3.5-5.1)
[2022-06-10] MEDS: magnesium sulfate premix 2 GM/50 ML PIGGYBACK IV (09:10)
[2022-06-17] MEDS: potassium chloride premix 100 ML 37.5 MEQ IV (08:25)
[2022-06-17 08:28] VITALS: BP 90/50; PULSE 107; RESP 18; TEMP 36.6; O2SAT 95
[2022-06-17 08:55] LABS: INR 1.35 (0.8-1.2)
[2022-06-17 09:00] LABS: Anion Gap 18.6 (5-19); Blood Urea Nitrogen 47 mg/dL (8-23); Calcium 9.2 mg/dL (8.5-10.5); Carbon Dioxide 36 mmol/L (22-29); Chloride 79 mmol/L (98-107); Glucose 117 mg/dL (65-115); Osmolality Calculated 285 mOsm/kg (285-295); Sodium 131 mmol/L (136-145)
[2022-06-17 09:14] LABS: Potassium 2.6 mmol/L (3.5-5.1)
[2022-06-24] MEDS: potassium chloride premix 100 ML 37.5 MEQ IV (08:24)
[2022-06-24 08:26] VITALS: BP 139/72; PULSE 51; RESP 18; TEMP 36.5; O2SAT 98
[2022-06-24 08:49] LABS: INR 1.25 (0.8-1.2)
[2022-06-24 08:50] LABS: Anion Gap 15.3 (5-19); Blood Urea Nitrogen 42 mg/dL (8-23); Calcium 9.1 mg/dL (8.5-10.5); Carbon Dioxide 31 mmol/L (22-29); Chloride 93 mmol/L (98-107); Glucose 114 mg/dL (65-115); Magnesium 1.1 mg/dL (1.7-2.3); Osmolality Calculated 293 mOsm/kg (285-295); Potassium 3.3 mmol/L (3.5-5.1); Sodium 136 mmol/L (136-145)
[2022-06-24] MEDS: magnesium sulfate premix 2 GM/50 ML PIGGYBACK IV (10:00)
== END 2022-06-24 12:10 | disposition home or self-care (01) ==
LOC: GILAB 08:05
PROVIDERS: PCP Family Medicine; Visit Provider Registered Nurse
DX: N18.5 Chronic kidney disease, stage 5 (principal); E83.42 Hypomagnesemia; E87.6 Hypokalemia
CPT/HCPCS: 36591; 80048; 83735; 85610; 96365; 96366; 96367; J3475; J3480

== ENCOUNTER 2022-11-25 12:21 | Emergency (ER) | payer MEDICARE, SELFPAY ==
[2022-11-25 12:21] VITALS: BP 114/68; PULSE 132; RESP 14; TEMP 36.4; O2SAT 100
--- NOTE | 2022-11-25 12:32 | ED_ITS ---
HPI - General Adult General: Chief complaint: General Medical Stated complaint: Hospice /Pain all over Time Seen by Provider: 11/25/22 12:31 Source: patient Mode of arrival: ambulatory History of Present Illness: 72-year-old female brought in by EMS. Patient is on hospice reporting of a difficult time controlling her pain at home. On arrival here she has no specific complaints she dozes off frequently when she wakes up she states she is in pain but when I went back in her room multiple times that she was sleeping. Fentanyl patch recently was increased to 75 mcg. She has Roxanol and Ativan sublingual as options for use. She has had periods of respite at the group home. Her family assists her at home but is not able to be with her continuously. Onset (ago): day(s) Relieving factors: none Exacerbating factors: none Associated symptoms: Reports confusion, decreased appetite, malaise and nausea; Deny chest pain, cough, diaphoresis, dyspnea, fevers/chills, headache(s), rash, palpitations, seizures, short of breath, syncope, vomiting or weakness Review of Systems Const: Reports: malaise; Denies: fever(s), chills or diaphoresis Card: Denies: chest pain, palpitations or syncope Resp: Denies: dyspnea GI: Reports: nausea; Denies: abdominal pain or vomiting : Denies: flank pain, dysuria, urinary frequency or urinary urgency Skin/Breast: Denies: rash Neuro: Reports: confusion; Denies: headache(s) PFS ED PFSH: Medical History Atrial fibrillation not chronic Autonomic neuropathy BMI less than 19,adult Chronic anemia mixed B12 and iron deficiency 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 Baseline creatinine in 2020 records here 2.0-4.0. Has required hemodialysis in past during times of acute illness. Follows with Dr Benz. Creatinine has been as high as 17 in setting of severe pre-renal azotemia. COVID-19 (~10/2019) Crohn's disease s/p total colectomy (1980) with ileostomy (2002) Distal radius fracture, right History of MRSA infection History of pelvic fracture Hyperaldosteronism At at least one point in time felt secondary to aldactone rather than primary Hyperlipidemia Hypersomnia Hypertrophy of bone of hand Hypokalemia chronically on IV infusions of potassium and magnesium Hypomagnesemia chronic Local infection due to Port-A-Cath (~2019) Myocardial infarction (lateral wall) Appears to have been identified during a prolonged hospital stay and possibly type II process. Had not required cardiac intervention. Osteoarthritis Osteoporosis Peripheral neuropathy Raynauds syndrome Severe protein-calorie malnutrition Short gut syndrome Stage III pressure ulcer Systolic congestive heart failure Diagnosed in 04/2019 at [facility] during a time of prolonged hospital care. Multiple echocardiograms show preserved EF 50-60% since that time. Appears to have been a transient issue related to acute medical issues at that time. Ventricular tachycardia (paroxysmal) related to electrolyte abnormalities Vitamin B12 deficiency Surgical History H/O ileostomy (~2002) H/O total colectomy (~2002) History of arthrodesis (08/03/18) right index finger History of delivery x4 History of hernia repair History of right hip replacement (~08/2019) History of tubal ligation Hx of appendectomy Port-A-Cath in place (10/12/19) right IJ Status post open reduction and internal fixation (ORIF) of fracture (12/22/19) left radius, Irina Status post open reduction and internal fixation (ORIF) of fracture (11/2019) right humerus, Irina Status post open reduction and internal fixation (ORIF) of fracture right hip Family History Other CAD (coronary artery disease) Cancer Congestive heart failure Diabetes Hyperlipidemia Social History Smoking and tobacco status: never smoked Second hand smoke exposure: No Alcohol intake: never Substance/Drug Use: never Current occupational status: retired Physical Exam HENMT: COMMON NORMALS: normocephalic and atraumatic HEAD & SCALP: normocephalic and atraumatic Resp: COMMON NORMALS: normal respiratory effort, No retractions, No use of accessory muscles and clear to auscultation bilaterally AUSCULTATION: clear to auscultation bilaterally Cardio: COMMON NORMALS: regular rate, regular rhythm and No murmurs present (Cardio) RATE: regular rate RHYTHM: regular rhythm GI: COMMON NORMALS: Soft to palpation and No hepatosplenomegaly present AUSCULTATION: Yes normoactive bowel sounds PALPATION: Yes Soft to palpation, No Tenderness to palpation present (GI), No Guarding due to palpation present (GI) and Yes No hepatosplenomegaly present Extremity: COMMON NORMALS: normal to inspection, capillary refill normal, no clubbing, cyanosis or edema, no calf tenderness and no pedal edema Skin: COMMON NORMALS: no rashes or lesions noted GENERAL SKIN EXAM: no rashes or lesions noted Course Vital Signs: Vital signs: Vital Signs Temperature 97.5 F L 11/25/22 17:37 Pulse Rate 132 H 11/25/22 17:37 Respiratory Rate 14 11/25/22 17:37 Blood Pressure 114/68 11/25/22 17:37 Pulse Oximetry 100 11/25/22 17:37 Oxygen Delivery Me thod Room Air 11/25/22 12:21 MDM - General Adult Medical Decision Making Discussion with family patient and with hospice care nurse. Patient expresses wishes to be kept comfortable at this time. Family is frustrated as they feel like she is not being kept adequately comfortable she intermittently is complaining of medications down. When I talked to the hospice nurse who had had patient in respite care at the group home on occasions and her pain has been well controlled. Their concern is because the family has other responsibilities and have not been able to be with her continuously have not been able to administer the medications regularly I have gone over with them that these are sublingual absorptive did not need to be swallowed. They do have antiemetics available. Family's position is that even in the group home medications have not adequately controlled the pain. Talk to the hospitalist as well When the medications were administered regularly. Hospice is not recommending inpatient Respess at this time and recommend continued treatment plan that they feel its b een verified adequately while at the group home. The family is frustrated with this but agrees to go home and continue the previously prescribed pain management. Medical Records I reviewed the patient's medical records. Lab Data I reviewed the patient's lab results. No radiology studies performed this visit Discharge Plan Discharge Patient Disposition: Home Clinical Impression: ESRD (end stage renal disease), Severe protein-calorie malnutrition, S/P ileostomy, Nausea & vomiting Condition: Stable Prescriptions: No Action (DME) ostomy wipes See Rx Instructions .Route .MEDSUPPLY Qty: 100 0RF Rx Instructions: As directed (DME) [facility] Joint Brace See Rx Instructions .ROUTE .MEDSUPPLY Qty: 1 0RF Rx Instructions: As directed (DME) VELCRO WRIST BRACE See Rx Instructions .Route .MEDSUPPLY Qty: 1 0RF Rx Instructions: As directed morphine concentrate 100 mg/5 mL (20 mg/mL) solution See Rx Instructions .ROUTE .COMPLEX Rx Instructions: TAKE 0.5-1 ML BY MOUTH EVERY 1 HOUR NEEDED fentanyl 100 mcg/hr patch 72 hour 1 patch topical Q3D scopolamine base 1 mg over 3 days patch 3 day 1 patch topical Q3D Discharge Orders: Discharge ED (Routine); Ordered 11/25/22 Ordered By: Eusebio Crandall Referrals: Tracy Jiang DO [Primary Care Provider] - Patient Instructions: Opioid Safety, Pain Management Activity Restrictions/Additional Instructions: Recommend you continue treatment plans as prescribed through the hospice program. Coding Level of Care Code ED Swage Tender for Rudolph Miller
--- NOTE | 2022-11-25 13:34 | PC.PHAR ---
3 medications verified with guardian. He states has the list for comparison and she will return shortly. Will update any changes
--- NOTE | 2022-11-25 15:22 | PC.NURSE ---
waiting for [facility] transport for discharge
[2022-11-25 17:37] VITALS: BP 114/68; PULSE 132; RESP 14; TEMP 36.4; O2SAT 100
== END 2022-11-25 17:38 | disposition home or self-care (01) ==
PROVIDERS: Emergency Provider Family Medicine; PCP Family Medicine
DX: N18.6 End stage renal disease (principal); E43 Unspecified severe protein-calorie malnutrition; Z68.1 Body mass index [BMI] 19.9 or less, adult; Z93.2 Ileostomy status; R11.2 Nausea with vomiting, unspecified; E78.5 Hyperlipidemia, unspecified; I25.2 Old myocardial infarction; I50.20 Unspecified systolic (congestive) heart failure
CPT/HCPCS: 99282